=== PATIENT | female | born 2000 | race Caucasian/White ===

== ENCOUNTER → 2023-10-14 | Outpatient (CLI) | payer OTHER, SELFPAY ==
[2023-10-14 11:13] LABS: hCG Titer Quant., Serum 786 mIU/mL (1-3)
== END | disposition home or self-care (01) ==
PROVIDERS: PCP Registered Nurse; Referring Provider Obstetrics & Gynecology; Visit Provider Obstetrics & Gynecology
DX: N91.2 Amenorrhea, unspecified (principal)
CPT/HCPCS: 36415; 84702

== ENCOUNTER → 2023-10-16 | Outpatient (CLI) | payer OTHER, SELFPAY ==
[2023-10-16 11:56] LABS: hCG Titer Quant., Serum 1512 mIU/mL (1-3)
== END | disposition home or self-care (01) ==
LOC: LAB 09:22
PROVIDERS: PCP Registered Nurse; Referring Provider Obstetrics & Gynecology; Visit Provider Obstetrics & Gynecology
DX: N91.2 Amenorrhea, unspecified (principal)
CPT/HCPCS: 36415; 84702

== ENCOUNTER → 2023-11-11 | Outpatient (CLI) | payer OTHER, SELFPAY ==
[2023-11-11 18:26] LABS: hCG Titer Quant., Serum 14249 mIU/mL (1-3)
[2023-11-14 07:08] LABS: Chlamydia By Nucleic Acid AMP Negative (Negative); Gonococcus By Nucleic Acid AMP Negative (Negative)
== END | disposition home or self-care (01) ==
LOC: RAD 16:25 → LAB 16:28
PROVIDERS: PCP Registered Nurse; Referring Provider Advanced Practice Midwife; Visit Provider Advanced Practice Midwife
DX: O09.90 Supervision of high risk pregnancy, unspecified, unspecified trimester (principal); E66.01 Morbid (severe) obesity due to excess calories; Z3A.00 Weeks of gestation of pregnancy not specified
CPT/HCPCS: 36415; 84702; 87086; 87491; 87591

== ENCOUNTER → 2023-11-13 | Outpatient (CLI) | payer OTHER, SELFPAY ==
[2023-11-13 16:19] LABS: hCG Titer Quant., Serum 13173 mIU/mL (1-3)
== END | disposition home or self-care (01) ==
PROVIDERS: PCP Registered Nurse; Referring Provider Advanced Practice Midwife; Visit Provider Advanced Practice Midwife
DX: O20.0 Threatened abortion (principal); Z3A.00 Weeks of gestation of pregnancy not specified
CPT/HCPCS: 36415; 84702

== ENCOUNTER 2023-11-20 05:27 | Day surgery (SDC) | payer OTHER, SELFPAY ==
[2023-11-20] VITALS (10 sets, daily range): BP systolic 118–182; BP diastolic 71–97; PULSE 63–111; RESP 12–18; TEMP 36.2–37.6; O2SAT 97–100
--- NOTE | 2023-11-20 05:37 | EDS_ITS ---
HPI HPI - Female History of Present Illness Chief Complaint: Vag Bld, Preg Informant: patient Narrative Narrative: Patient present secondary to miscarriage. She states that she has been spotting for the past week. Her OB told her she had a missed miscarriage. She was supposed to have a repeat ultrasound later this morning to see how much tissue of any she had passed. She started bleeding about an hour ago and passing large clots with a lot of cramping. [facility] Medical History (Updated 11/20/23 @ 08:[address] Niru Silvestre MD) Anxiety Home Medications ?Medication ?Instructions ?Recorded ?Last Taken ?Type multivitamin no.47-iron fum 27 1 cap PO DAILY 11/04/23 Unknown History mg-folate no.1 1 mg-dha 300 mg capsule (PNV-DHA) Allergy/AdvReac Type Severity Reaction Status Date / Time No Known Allergies Allergy Verified 11/20/23 05:27 Family History Mother Diabetes, Onset Age: 35 Type 2 Father Diabetes, Onset Age: 40 Type 2 Grandfather Heart disease Paternal Grandmother Diabetes Paternal Surgical History [place] teeth extracted History of cholecystectomy Social History adopted: No household members: spouse current occupational status: employed current occupation: [employer] current occupational exposures/hazards: No pets and animals: Yes pets and animals: dog(s) history of recent travel: No sexually active: Yes Smoking Status: Never smoker alcohol intake: never substance use type: does not use well-balanced diet: daily or most days caffeine: No eating out: 1-3 times/week during the past year weight has: increased > 10 lbs what type of physical activity do you participate in: walking and other details: yard work frequency: 1-2 times per week duration: 30-45 minutes/day kenyetta/roman catholic: Adventist seatbelt use: always do you feel safe at home: Yes 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 ED Constitutional Constitutional ED: Denies chills or fever(s) Eyes Eyes: Denies discharge from eye(s) ENT ENT ED: Denies discharge from eye(s), rhinorrhea or sore throat Cardiovascular Cardiovascular: Denies chest pain or palpitations Respiratory/Chest Respiratory/Chest: Denies cough or dyspnea Gastrointestinal Gastrointestinal: Reports abdominal pain; Denies diarrhea, nausea or vomiting Genitourinary Genitourinary ED: Denies dysuria Musculoskeletal Musculoskeletal: Denies back pain or extremity pain Integumentary Denies Abrasions or rash Neurologic Neurologic: Denies headache(s) or weakness Psychiatric Psychiatric: Denies anxiety or depression Allergic/Immunologic Allergic/Immunologic ED: Denies lip swelling or urticaria EXAM Physical Exam Const Vital Signs: 11/20/23 05:27 11/20/23 07:20 Temperature 97.1 F L Temperature Source Oral Pulse Rate 111 H 96 Respiratory Rate 16 18 Blood Pressure 182/84 H 140/96 H Blood Pressure Mean 116 110 Pulse Ox 98 100 Oxygen Delivery Method Room Air Room Air Positive well nourished and well developed General Appearance ED: well developed HEENT Reports moist mucous membranes Eyes EOMs intact bilaterally Chest Wall inspection of chest normal and palpation of chest normal Resp normal respiratory effort and clear to auscultation bilaterally Cardio regular rate and regular rhythm GI GI Narrative: Abdomen soft with lower abdominal tenderness to palpation. No guarding or rebound. Extremity normal to inspection Neuro oriented x3 and no sensory deficits noted Motor Exam: strength 5/5 throughout Psych Mood & Affect: anxious Skin no rashes or lesions noted MDM MDM MDM Narrative Medical decision making narrative: Abdomen initiated. Labwork obtained to evaluate for leukocytosis, anemia, and electrolyte derangement. ABO blood type will be sent. Patient given IV fluids, morphine, and Zofran. I spoke with Dr. Amador early in the patient's course. She would like a formal ultrasound and update her with results when available. History & Record Review Discussion w/independent historian: Patient Additional record(s) reviewed:: Prior outpatient record and Prior labs Lab Data Attestation: I reviewed the patient's lab results. Labs: Laboratory Results - last 24 hr 11/20/23 05:35 WBC 8.6 RBC 5.27 Hgb 14.6 Hct 43.3 MCV 82.2 MCH 27.7 MCHC 33.7 RDW Std Deviation 38.5 RDW Coeff of Diego 12.9 Plt Count 344 MPV 9.4 Immature Gran % (Auto) 0.600 Neut % (Auto) 64.4 Lymph % (Auto) 25.9 [place] % (Auto) 6.0 Eos % (Auto) 2.2 Baso % (Auto) 0.9 Absolute Neuts (auto) 5.5 Absolute Lymphs (auto) 2.22 Nucleated RBC % 0 HCG, Quant 4774 H Blood Type AB POSITIVE Radiography Diagnostic Testing: Clinical Impression(s) from Imaging Studies Obstetrics Ultrasound 11/20/23 05:40 IMPRESSION: Findings suggest impending spontaneous with retained products of conception in the lower uterine segment. Electronically Signed: Shira Larose MD at 7:54 EDT , Treatment and Re-Evaluation Narrative: CBC reveals a white count 8.6 with a hemoglobin of 14.6. Quant is 4774, down from 13,000 on the 18th. Pelvic ultrasound reveals findings suggesting impending spontaneous with retained products of conception in the lower uterine segment. Dr. Robles called after she had seen any ultrasound images. Patient is still having significant pain and is required multiple doses of Dilaudid. Dr. Robles will call the OR and plan to take the patient down for a D&C. Patient has been updated. Discharge Plan Triage Chief Complaint: Vag Bld, Preg ED Provider: Niru Silvestre Dx/Rx/DC Orders Clinical Impression: Incomplete Prescriptions: No Action PNV-DHA 27 mg iron-1 mg -300 mg capsule 1 cap PO DAILY Primary Care Provider: Emmie Singh NP Referrals: Emmie Singh NP, TICKET DISPENSER CHANGER-C [Primary Care Provider] - Print Language: Tamazight [facility]position [facility]
--- NOTE | 2023-11-20 05:40 | US_ITS ---
STUDY: FIRST TRIMESTER OBSTETRICAL ULTRASOUND REASON FOR EXAM: Female, 23 years old patient with miscarriage and abnormal vaginal bleeding. LMP: Unknown. TECHNIQUE: Transvaginal TECHNICAL QUALITY: Adequate. PRIOR ULTRASOUND: None. FINDINGS: There is a abnormal appearing gestational sac in the lower uterine segment. There is no demonstrated yolk sac. The placenta is non-visualized. There is no demonstrated embryo ( pole). The estimated gestation age (EGA) by LUIS is 10 weeks, 5 days. The estimated date of delivery (LUIS) is June 12, 2024. The uterus measures 9.9 x 4.7 x 5.9 cm. There is no demonstrated uterine fibroid. The cervix is closed. The right ovary measures 1.5 x 2.7 x 1.8 cm. There is no right ovarian cyst. There is no visualized right adnexal mass or complex lesion. The left ovary measures 2.4 x 1.6 x 2.9 cm.. There is no left ovarian cyst. There is no visualized left adnexal mass or complex lesion. There is no fluid in the cul de sac. US/Transvaginal w/Preg US IMPRESSION: Findings suggest impending spontaneous with retained products of conception in the lower uterine segment. Electronically Signed: Shira Larose MD at 7:54 EDT ,
[2023-11-20] MEDS: 0.9% Normal Saline (1000mL) 1,000 ML 150 ML IV (05:45)
[2023-11-20] MEDS: Morphine 4 MG/ML Syringe IV (05:46)
[2023-11-20] MEDS: Ondansetron 4 MG/2 ML Vial IV (05:46)
[2023-11-20] MEDS: 0.9% Normal Saline (500mL Bag) 500 ML 1000 ML IV (05:49)
[2023-11-20 05:50] LABS: Absolute Lymphocyte Count 2.22 X10^3/uL (0.83-4.51); Absolute Neutrophil Count 5.5 X10^3/uL (2.0-7.7); Basophil# 0.08 X10^3/uL; Basophil% 0.9 % (0-1); Eosinophil# 0.19 X10^3/uL; Eosinophils% 2.2 % (0-5); Hematocrit 43.3 % (37-47); Hemoglobin 14.6 g/dL (12.0-15.0); Lymphocyte # 2.22 X10^3/ul (0.83-4.51); Lymphocyte % 25.9 % (19-41); Mean Corp Hgb Conc 33.7 g/dL (32-36); Mean Corpuscular Hgb 27.7 pg (27.0-32.0); Mean Corpuscular Volume 82.2 fL (81-99); Mean Platelet Vol. 9.4 fl (6.2-12.0); Monocyte# 0.51 X10^3/uL; NRBC Flagged by Analyzer 0 % (0-5); Neutrophil # 5.52 X10^3/uL (2.7-7.7); Neutrophil % 64.4 % (47-70); Platelet Count 344 K/mm3 (150-450); RBC Distribution Width CV 12.9 % (11.6-14.6); RBC Distribution Width SD 38.5 fl (35.1-43.9); Red Blood Count 5.27 M/mm3 (4.2-5.4); White Blood Count 8.6 K/mm3 (4.4-11.0)
[2023-11-20 06:29] LABS: hCG Titer Quant., Serum 4774 mIU/mL (1-3)
[2023-11-20] MEDS: HYDROmorphone 0.5 MG/0.5 ML SYRINGE IV (07:19)
[2023-11-20] MEDS: HYDROmorphone 1 MG/ML Syringe IV (07:50)
--- NOTE | 2023-11-20 08:00 | POC_PTH ---
PATIENT: CHRISSIE COLBY [place] [facility] [place][id number] AGE/SX: 23/ ROOM: RE11/20/[address]: Dr. Niru Gibson DO : 2000 BED: DIS: 11/20/2023 SPEC #: [id number] RECD: 11/20/23 12:19 STATUS: JOSHUA BOWLES #: [id number] ANGELICA: 11/20/23 08:[address]: Niru Gibson DEPT: SURGICAL PATHOLOGY RECD BY: Sharda Graf ENTERED: 11/20/23 13:30 SP TYPE: PROD CONC OTHR DR: Emmie Singh, DANYEL Tissues: Product of conception, NOS Procedures: Surgery Specimen Level IV HEADER OPERATION: D&C, suction PRE-OP DIAGNOSIS: Incomplete , bleeding in early TISSUE SUBMITTED: Products of conception MICROSCOPIC DIAGNOSIS Endometrium, curettage: Chorionic villi, decidualized stroma and trophoblastic cells (products of conception). AM: 11/21/2023 MICROSCOPIC DESCRIPTION Slides are reviewed. GROSS DESCRIPTION Received in fixative is one container labeled with the patient's name and designated Products of conception. The specimen consists of multiple fragments of hemorrhagic soft tissue measuring in aggregate 5.5 x 5.5 x 1.5cm. tissue is not identified. Film Drying Machine Operator tissue is submitted in three cassettes. CHACORTA/ 11/20/2023 TC:5 CPT:38070
--- NOTE | 2023-11-20 08:27 | HP.PCM.OB_ITS ---
HPI - General HPI Narrative CHRISSIE COLBY, is a 23 y/o @ approximately 7 weeks gestation who presents to [facility] ER with heavy bleeding and severe pain. SHe was given cytotec to help facilitate an incomplete . Ultrasound shows that the is not in the lower uterine segment. Her bleeding is reported as brisk but her hg is stable. She is requesting dilaudid and has been given that in the ER. She would like to proceed with a suction dilation and curettage. Maternal Data Information LUIS Calculator Estimated Delivery Date Method Current WG Current Estimate 06/12/24 LMP (Certain) 10w 5d [facility] Medical History Anxiety Home Medications ?Medication ?Instructions ?Recorded ?Last Taken ?Type multivitamin no.47-iron fum 27 1 cap PO DAILY 11/04/23 Unknown History mg-folate no.1 1 mg-dha 300 mg capsule (PNV-DHA) Allergy/AdvReac Type Severity Reaction Status Date / Time No Known Allergies Allergy Verified 11/20/23 05:27 Family History Mother Diabetes, Onset Age: 35 Type 2 Father Diabetes, Onset Age: 40 Type 2 Grandfather Heart disease Paternal Grandmother Diabetes Paternal Surgical History [place] teeth extracted History of cholecystectomy Social History adopted: No household members: spouse current occupational status: employed current occupation: [employer] current occupational exposures/hazards: No pets and animals: Yes pets and animals: dog(s) history of recent travel: No sexually active: Yes Smoking Status: Never smoker alcohol intake: never substance use type: does not use well-balanced diet: daily or most days caffeine: No eating out: 1-3 times/week during the past year weight has: increased > 10 lbs what type of physical activity do you participate in: walking and other details: yard work frequency: 1-2 times per week duration: 30-45 minutes/day kenyetta/episcopal: Mandaen seatbelt use: always do you feel safe at home: Yes 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 Elective abortions Hx Para 0 Spontaneous abortions Hx # Term Pregnancies Ectopic pregnancies Hx # Pregnancies Multiple births # of living children Visit Details Expected Delivery Route/Plan Labor Preferences- CB/BF classes: [] labor support person: [] labor intervention preferences: [] pain management options preferred: [] cut cord/dad catch: [] : [] PP control planned: [] discussed possible routes of delivery and associated risks: [] special requests: [] Plans Covid status: [] Flu vaccine: [] Tdap vaccine: [] Rhogam: [] LARC form signed: [] Problem list reviewed and updated with the most current plan of care details and appropriate orders placed. Relevant counseling for the gestational age provided. Continue routine care and follow up unless otherwise noted in visit notes/problem list details OB Flowsheet Initial Weight: 277 lb Date -?-?-?-?-?-?-?-?-?-?-?-?- EGA Weight BP Urine Prot -?-?-?-?-?-?--?-?-?-?-?-?- Glucose FHR FuHt Pres Dilation -?-?-?-?-?-?-?-?-?-?-?-?- Effaced St Visit Note 11/11/23 -?-?-?-?-?-?-?-?-?-?-?-?- 9w 3d 277 lb (+0 oz) 147/88 -?-?-?-?-?-?-?-?-?-?-?-?- -?-?-?-?-?-?-?-?-?-?-?-?- KW-CRL 6mm today . FHT not visualized. JV scanned and agrees with assessment. Plan HCGs and repeat US in 1 week. wants NIPT and carrier if viable ROS Constitutional Constitutional: Denies change in weight, fatigue, fever(s), headache(s), poor appetite or weakness Eyes Eyes: Denies blurry vision, change in vision, seeing flashes or spots in vision ENT HEENT: Denies dizziness, headache(s), loss taste/smell or sore throat Cardiovascular Cardiovascular: Denies chest pain, dizziness, dyspnea, irregular heart rhythm, leg edema, palpitations, rapid heart rate or vomiting Respiratory/Chest Respiratory/Chest: Denies chest tightness, cough, dyspnea or breast pain Gastrointestinal Gastrointestinal: Denies abdominal pain, anorexia, constipation, diarrhea, hemorrhoids, vomiting or weight changes Genitourinary Genitourinary: Denies dysuria, flank pain, genital lesions, genital pain, urinary frequency or urinary urgency Musculoskeletal Musculoskeletal: Denies back pain, difficulty walking, joint pain, limited range of motion, muscle cramps or numbness Integumentary Integumentary: Denies lesions or unusual bruising Neurologic Neurologic: Denies abnormal movements, abnormal speech, dizziness, numbness, seizure-like activity or syncope Psychiatric Psychiatric: Denies anxiety, behavioral changes, change in appetite, change in libido, cognitive impairment, confusion, depression, difficulty concentrating, hallucinations or suicidal thoughts Endocrine Endocrinology: Denies excessive sweating, polydipsia or polyuria Hematologic/Lymphatic Hematologic/Lymphatic: Denies easy bleeding, easy bruising or lymphadenopathy Allergic/Immunologic Allergic/Immunologic: Denies itchy eyes, lip swelling, seasonal rhinorrhea, rhinitis, throat swelling, tongue swelling, eczemia, wheezing or asthma Vital Signs Vital Signs Vital Signs: 11/20/23 05:27 11/20/23 07:20 11/20/23 08:17 Temperature 97.1 F L 98.0 F Temperature Source Oral Temporal Pulse Rate 111 H 96 63 Respiratory Rate 16 18 12 Blood Pressure 182/84 H 140/96 H 118/71 Blood Pressure Mean 116 110 86 Blood Pressure Source Monitor Blood Pressure Position Semi-Fowlers Blood Pressure Location Left Arm Pulse Ox 98 100 98 Oxygen Delivery Method Room Air Room Air Nasal Cannula Oxygen Flow Rate (L/min) 2 Physical Exam Const alert, oriented x3, no apparent distress and healthy appearing General Appearance: cooperative; Negative for anxious HEENT normocephalic Face and Sinus: normal facial exam Eyes EOMs intact bilaterally and no scleral icterus General Eye: normal appearance of both eyes Neck full ROM and supple Lymph Lymphatic: no lymphadenopathy noted Chest Chest: abnormal inspection of the chest Resp normal respiratory effort Effort and Inspection: able to speak in complete sentences Cardio regular rate GI soft to palpation Palpation: soft Back/Spine no CVA tenderness Extremity normal to inspection, full ROM and no clubbing, cyanosis or edema General Extremity: Negative for calf tenderness or edema Skin Lesions: no lesions Rashes: no rashes Psych mental status grossly normal Labs Labs Labs: Blood Type AB POSITIVE Hct 43.3 % (37-47) Hgb 14.6 g/dL (12.0-15.0) Obstetrics Ultrasound Chlamydia DNA (GSU) Negative (Negative) N.gonorrhoeae DNA (GUS) Negative (Negative) Assessment & Plan (1) Incomplete : (2) Bleeding in early : PLAN: Plan After discussing the patient's diagnosis and treatment plan options, patient wishes to proceed with surgical management. I have discussed with the patient the risks, benefits, and alternatives of the procedure which include but are not limited to risks of anesthesia, bleeding, infection, possible damage to bowel, bladder, or surrounding vasculature which could lead to additional surgery to evaluate any complications. Patient agrees to procedure and wishes to proceed. plan for urgent Suction dilation and curettage
--- NOTE | 2023-11-20 08:28 | PRE.ANES_ITS ---
ASA Classification* ASA Classification ASA Classification: 3 and E (unscheduled, emergent due to active bleeding) Assessment & Plan Anesthesia* Anesthesia Assessment Anesthesia Assessment: Discussed sedation and/or anesthesia options, risks, benefits, and alternatives with patient/parents/legal guardian/POA. Questions invited. The patient/parents/legal guardian/POA seems to understand and agrees to proceed with anesthesia plan. Reviewed the physical assessment, medical history, allergy history and patient home medications list prior to surgery/procedure/anesthetic and documented any changes. Performed airway and anesthesia risk assessments. Anesthesia Type Anesthesia Type: MAC Anesthesia Focused Assessment* Temperature: 98.0 F Pulse Rate: 63 Blood Pressure: 118/71 Respiratory Rate: 12 Pulse Ox: 98 Airway Assessment Mouth opens: >3 cm Mallampati Score: II Focused Labs Anesthesia Preop lab: CBC WBC 8.6 K/mm3 (4.4-11.0) 11/20/23 05:35 RBC 5.27 M/mm3 (4.2-5.4) 11/20/23 05:35 Hgb 14.6 g/dL (12.0-15.0) 11/20/23 05:35 Hct 43.3 % (37-47) 11/20/23 05:35 Plt Count 344 K/mm3 (150-450) 11/20/23 05:35 CHEMISTRY COAG HCG, Quant 4774 mIU/mL (1-3) H 11/20/23 05:35 Pre-Assessment Diagnosis/Proposed Procedure Planned Operative Procedure(s): D&C Anesthesia History Anesthesia History - combination machine tender: Anesthesia History - combination machine tender Hx Hospitalization Any Problems With Anesthesia No 11/20/23 08:17 Cholinesterase deficiency You/Your Family Experience No 11/20/23 08:17 fever (hyperthermia) with Relationship Recent Exposure to Contagious No 11/20/23 08:17 Disease Does patient have nerve No 11/20/23 08:17 stimulator Patient instructed to have device shut off --Does patient have Pacemaker No 11/20/23 08:17 or ICD? When Was Last Pacemaker Check QUESTION #4 FULL TEXT: You/Your Family Experience fever (hyperthermia) with Anesthesia Last Oral Intake Last Oral intake: Last Oral Intake NPO since Meds taken in AM with sips of water? Meds patient instructed to take am of surgery PONV PONV - combination machine tender: PONV - combination machine tender Female HX of Motion Sickness HX of N/V After Surgery Non-Smoker Duration of Surgery greater than 60 minutes Number of Risk Factors PONV Score Height & Weight Height & Weight: Anesthesia: Height & Weight Height 5 ft 3 in 11/20/23 08:17 Respiratory Assessment Respiratory Assessment - combination machine tender: Respiratory Tract Infection Hx - combination machine tender Hx Respiratory Tract Infection No 11/20/23 08:17 STOP Sleep Apnea STOP Sleep Apnea - combination machine tender: STOP Sleep Apnea - combination machine tender Hx Hypertension No 11/20/23 08:17 Hx Sleep Apnea No 11/20/23 08:17 CPAP BIPAP Do you snore loudly (louder No 11/20/23 08:17 than talking or can be heard Do you often feel tired/ No 11/20/23 08:17 fatigued/ sleepy during daytime? Has anyone observed you stop No 11/20/23 08:17 breathing during sleep? STOP Results Negative 11/20/23 08:17 QUESTION #5 FULL TEXT : Do you snore loudly (louder than talking or can be heard through closed doors)? 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 Specify any problems Hx of Preganancy in last 3 Months Nurse Filling Out Transfusion & Questions: Date: Time: Patient unable to answer at this time (ie. confused, unrespo /Reproduction History /Reproductive History - combination machine tender: /Reproductive Hx- combination machine tender Hx Now Yes 11/20/23 08:17 Gestational Age (in weeks): EDC: Hx 1 11/20/23 05:27 Hx Para Hx Section SAB Yes 11/20/23 05:27 Active Medications Active Medications: Current Medications Generic Name Dose Route Start Last Admin Trade Name Freq PRN Reason Stop Dose Admin Sodium Chloride 1,000 mls @ 150 mls/hr 11/20/23 05:35 11/20/23 05:45 IV 150 mls/hr .[id number] SMITH Administration PFSH Medical History Anxiety Home Medications ?Medication ?Instructions ?Recorded ?Last Taken ?Type multivitamin no.47-iron fum 27 1 cap PO DAILY 11/04/23 Unknown History mg-folate no.1 1 mg-dha 300 mg capsule (PNV-DHA) Allergy/AdvReac Type Severity Reaction Status Date / Time No Known Allergies Allergy Verified 11/20/23 05:27 Family History Mother Diabetes, Onset Age: 35 Type 2 Father Diabetes, Onset Age: 40 Type 2 Grandfather Heart disease Paternal Grandmother Diabetes Paternal Surgical History [place] teeth extracted History of cholecystectomy Social History adopted: No household members: spouse current occupational status: employed current occupation: [employer] current occupational exposures/hazards: No pets and animals: Yes pets and animals: dog(s) history of recent travel: No sexually active: Yes Smoking Status: Never smoker alcohol intake: never substance use type: does not use well-balanced diet: daily or most days caffeine: No eating out: 1-3 times/week during the past year weight has: increased > 10 lbs what type of physical activity do you participate in: walking and other details: yard work frequency: 1-2 times per week duration: 30-45 minutes/day kenyetta/spiritism: Mandaeism seatbelt use: always do you feel safe at home: Yes 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
--- NOTE | 2023-11-20 08:33 | DCINST_ITS ---
Discharge Instructions Diet Discharge Diet: No restrictions Activity Discharge Activity: Return to Normal Activity, May Shower and May Take a Tub Bath (after 1 week) May resume sexual activity in: 1-2 weeks Weight Bearing Status: Weight bearing as tolerated Lifting Restrictions: none Dressing / Incision Call your doctor if you observe: Fever of 101 or Higher, Using more than 1 pad per hour, Shortness of breath and Uncontrolled pain Follow Up Care Please Follow Up With: Niru Gibson DO When: Call [phone] to schedule appointment. Test Results: Test results from this visit will be discussed in further detail at your follow- up appointment, if applicable. Discharge Plan Admission Attending Provider: Niru Gibson Primary Care Provider: Emmie Singh NP Instructions Print Language: Mongolian Discharge Orders/Prescriptions Prescriptions: No Action PNV-DHA 27 mg iron-1 mg -300 mg capsule 1 cap PO DAILY Referrals / Follow Up: Emmie Singh NP, IDENTITY MANAGEMENT DEVELOPER-C [Primary Care Provider] - Disposition Disposition (needs filled in before D/C Order can be placed): Home, Self Care
[2023-11-20] MEDS: Lidocaine 1% (20 ml mdv) 20 ML Vial (09:09)
--- NOTE | 2023-11-20 09:11 | OP.PCM_ITS ---
Problems Associated Problem List Diagnoses (1) Incomplete : Report of Operation Date of Procedure: 11/20/23 Pre-Operative Diagnosis: incomplete , 7 weeks gestation Post-Operative Diagnosis: incomplete , 7 weeks gestation Surgery/Procedure Performed:: suction dilation and curettage Description of Surgical Findings:: POC mostly in the cervix Surgeon: Niru Gibson business continuity management director: None Type of Anesthesia: MAC and Topical Anesth Specimen's removed: products of conception Drains: none Estimated Blood Loss (mL): 50 Description of Procedure: Patient was taken to the operating room and placed under MAC local anesthesia. She was prepped and draped in the normal sterile fashion the dorsal lithotomy position. Bladder was drained of clear urine and anterior lip of the cervix was grasped and the uterus sounded to []. Cervix was progressively dilated to allow passage of a size 7 suction curette. Progressive passes were made removing the retained products of conception without complication. Sharp curettage confirmed complete removal of the retained products. All instruments were removed from the vagina and excellent hemostasis was noted and the patient was taken to recovery in stable condition. Procedure Start Time: 09:02 Procedure Stop Time: 09:11 Complications none Admit VTE Documentation VTE Present on Admission: Yes VTE Mechan Device Prophylaxis: SCD's Multi Select Codes Urinary/Genital Urinary/Genital CPT Codes: 34035 Surg Trtmt missed Ab 1TM
--- NOTE | 2023-11-20 09:39 | PCM.POST.ANE ---
Anesthesia: Postop Eval I Current Vital Signs Temperature: 99.1 F Pulse Rate: 88 Blood Pressure: 142/95 Respiratory Rate: 18 Pulse Ox: 98 Oxygen Delivery Method: Room Air Assessment Airway patent: Yes Spontaneous unlabored respirations: Yes Mental status: Awake and Calm nausea: No Vomiting: No Anesthesia Complication: No Fluid Hydration Crystalloid volume administer (ml): 1,200 Total IV fluid infused: 1,200 Progress Note Anesthesia document: Postop Eval 1 completed: Yes
--- NOTE | 2023-11-20 09:46 | PRE.ANES_ITS ---
ASA Classification* ASA Classification ASA Classification: 2 Assessment & Plan Anesthesia* Anesthesia Assessment Anesthesia Assessment: Discussed sedation and/or anesthesia options, risks, benefits, and alternatives with patient/parents/legal guardian/POA. Questions invited. The patient/parents/legal guardian/POA seems to understand and agrees to proceed with anesthesia plan. Reviewed the physical assessment, medical history, allergy history and patient home medications list prior to surgery/procedure/anesthetic and documented any changes. Performed airway and anesthesia risk assessments. Anesthesia Type Anesthesia Type: MAC (GA bkup) Anesthesia Focused Assessment* Temperature: 99.1 F Pulse Rate: 88 Blood Pressure: 142/95 Respiratory Rate: 18 Pulse Ox: 98 Oxygen Flow Rate (L/min): 2 Airway Assessment Mouth opens: >3 cm Mallampati Score: II Focused Labs Anesthesia Preop lab: CBC WBC 8.6 K/mm3 (4.4-11.0) 11/20/23 05:35 11/20/23 RBC 5.27 M/mm3 (4.2-5.4) 11/20/23 05:35 11/20/23 Hgb 14.6 g/dL (12.0-15.0) 11/20/23 05:35 11/20/23 Hct 43.3 % (37-47) 11/20/23 05:35 11/20/23 Plt Count 344 K/mm3 (150-450) 11/20/23 05:35 11/20/23 CHEMISTRY COAG HCG, Quant 15041 mIU/mL (1-3) H 03/15/24 09:01 03/15/24 Pre-Assessment Diagnosis/Proposed Procedure Planned Operative Procedure(s): D&C Anesthesia History Anesthesia History - network pricing consultant: Anesthesia History - network pricing consultant Hx Hospitalization Any Problems With Anesthesia No 11/20/23 08:17 Cholinesterase deficiency You/Your Family Experience No 11/20/23 08:17 fever (hyperthermia) with Relationship Recent Exposure to Contagious No 11/20/23 08:17 Disease Does patient have nerve No 11/20/23 08:17 stimulator Patient instructed to have device shut off --Does patient have Pacemaker No 11/20/23 08:17 or ICD? When Was Last Pacemaker Check QUESTION #4 FULL TEXT: You/Your Family Experience fever (hyperthermia) with Anesthesia Last Oral Intake Last Oral intake: Last Oral Intake NPO since Meds taken in AM with sips of water? Meds patient instructed to take am of surgery PONV PONV - network pricing consultant: PONV - network pricing consultant Female HX of Motion Sickness HX of N/V After Surgery Non-Smoker Duration of Surgery greater than 60 minutes Number of Risk Factors PONV Score Height & Weight Height & Weight: Anesthesia: Height & Weight Height 5 ft 3 in 11/20/23 08:17 Respiratory Assessment Respiratory Assessment - network pricing consultant: Respiratory Tract Infection Hx - network pricing consultant Hx Respiratory Tract Infection No 11/20/23 08:17 STOP Sleep Apnea STOP Sleep Apnea - network pricing consultant: STOP Sleep Apnea - network pricing consultant Hx Hypertension No 11/20/23 08:17 Hx Sleep Apnea No 11/20/23 08:17 CPAP BIPAP Do you snore loudly (louder No 11/20/23 08:17 than talking or can be heard Do you often feel tired/ No 11/20/23 08:17 fatigued/ sleepy during daytime? Has anyone observed you stop No 11/20/23 08:17 breathing during sleep? STOP Results Negative 11/20/23 09:20 QUESTION #5 FULL TEXT : Do you snore loudly (louder than talking or can be heard through closed doors)? Tobacco Use History Tobacco Use History - network pricing consultant: Tobacco Use History - network pricing consultant Tobacco Use Smoking Status Never smoker 11/20/23 05:27 Hx Tobacco Use Years Smoking Packs Smoked per Day Smoking Cessation Date was within the last 15 years Hx Smoking Cessation Date Hx Smoking Cessation Counseling Hematologic Medial History Hematologic Hx - network pricing consultant: Hematologic Medical Hx - web development manager Hx of Blood Transfusion Hx of Transfusion in last 3 Months Date of Last Transfusion (if within last 3 months) Ever experience any problems with transfusion(s)? Specify any problems Hx of Preganancy in last 3 Months Nurse Filling Out Transfusion & Questions: Date: Time: Patient unable to answer at this time (ie. confused, unrespo /Reproduction History /Reproductive History - network pricing consultant: /Reproductive Hx- network pricing consultant Hx Now Yes 11/20/23 08:17 Gestational Age (in weeks): EDC: Hx 1 11/20/23 05:27 Hx Para Hx Section SAB Yes 11/20/23 05:27 Active Medications Active Medications: Current Medications Generic Name Dose Route Start Last Admin Trade Name Freq PRN Reason Stop Dose Admin Hydrocodone Bitart/Acetaminophen 1 - 2 tablet 11/20/23 08:57 Hydrocodone Bitartrate/Apap 5/325 Tablet PO Q6H PRN PRN Pain Score 6-10 Sodium Chloride 1,000 mls @ 150 mls/hr 11/20/23 05:35 11/20/23 05:45 IV 150 mls/hr .[id number] SMITH Administration Ondansetron HCl 4 mg 11/20/23 08:57 Ondansetron 4 Mg/2 Ml Vial IM X1 PRN NAUSEA PFSH Medical History Incomplete Anxiety Home Medications ?Medication ?Instructions ?Recorded ?Last Taken ?Type multivitamin no.47-iron fum 27 1 cap PO DAILY 11/04/23 Unknown History mg-folate no.1 1 mg-dha 300 mg capsule (PNV-DHA) aspirin 81 mg tablet,delayed 81 mg PO DAILY 03/15/24 U nknown History release (Adult Aspirin Regimen) Allergy/AdvReac Type Severity Reaction Status Date / Time No Known Allergies Allergy Verified 03/15/24 08:46 Family History Mother Diabetes, Onset Age: 35 Type 2 Father Diabetes, Onset Age: 40 Type 2 Grandfather Heart disease Paternal Grandmother Diabetes Paternal Surgical History Status post dilation and curettage [place] teeth extracted History of cholecystectomy Social History adopted: No household members: spouse current occupational status: employed current occupation: [employer] current occupational exposures/hazards: No pets and animals: Yes pets and animals: dog(s) history of recent travel: No sexually active: Yes Smoking Status: Never smoker alcohol intake: never substance use type: does not use well-balanced diet: daily or most days caffeine: No eating out: 1-3 times/week during the past year weight has: increased > 10 lbs what type of physical activity do you participate in: walking and other details: yard work frequency: 1-2 times per week duration: 30-45 minutes/day kenyetta/faith: Congregation seatbelt use: always do you feel safe at home: Yes 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
--- NOTE | 2023-11-20 09:46 | PCM.POSTANE2 ---
Anesthesia Postop Eval I Sum Postop Eval Completion status Anesthesia document: Postop Eval 1 completed: Yes Anesthesia Postop Eval I Summary Anesthesia Postop Eval I Summary: Anesthesia Postop Eval I: Assessment Summary Airway patent Yes 11/20/23 09:40 [email or web address] Spontaneous unlabored Yes 11/20/23 09:40 [email or web address] respirations Mental status Awake,Calm 11/20/23 09:40 [email or web address] nausea No 11/20/23 09:40 [email or web address] Vomiting No 11/20/23 09:40 [email or web address] Anesthesia Postop Eval I: Fluid Summary Crystalloid volume administer 1,200 11/20/23 09:40 [email or web address] (ml) Colloids volume administered ( ml) Blood Product volume administered (ml) Total IV fluid infused 1,200 11/20/23 09:40 [email or web address] Anesthesia Postop Eval I: Summary Notes Anesthesia Complication No 11/20/23 09:40 [email or web address] Anesthesia Complication Comment: Post-operative progress note Anesthesia: Postop Eval II Evaluation Mental status: Awake Pain Level: 0 nausea: No Vomiting: No Complications Anesthesia Complication: No
== END 2023-11-20 10:35 | disposition home or self-care (01) ==
LOC: ED 08:01 → SDC 08:07 → ACINP 08:08
PROVIDERS: Emergency Provider Emergency Medicine; PCP Registered Nurse; Visit Provider Obstetrics & Gynecology
PROC: (CPT 59812; principal; 2023-11-20 07:45)
DX: O03.4 Incomplete spontaneous abortion without complication (principal)
CPT/HCPCS: 59812; 01965; 76817; 84702; 85025; 86900; 86901; 88305; 99284; J7030; A4216; J2405

== ENCOUNTER → 2023-12-30 | Outpatient (CLI) | payer OTHER, SELFPAY ==
[2023-12-30 16:28] LABS: hCG Titer Quant., Serum 16 mIU/mL (1-3)
== END | disposition home or self-care (01) ==
PROVIDERS: PCP Registered Nurse; Referring Provider Obstetrics & Gynecology; Visit Provider Obstetrics & Gynecology
DX: Z34.90 Encounter for supervision of normal pregnancy, unspecified, unspecified trimester (principal); Z87.59 Personal history of other complications of pregnancy, childbirth and the puerperium
CPT/HCPCS: 36415; 84702

== ENCOUNTER → 2024-01-01 | Outpatient (CLI) | payer OTHER, SELFPAY ==
[2024-01-01 14:54] LABS: hCG Titer Quant., Serum 7 mIU/mL (1-3)
== END | disposition home or self-care (01) ==
LOC: LAB 13:35
PROVIDERS: PCP Registered Nurse; Referring Provider Obstetrics & Gynecology; Visit Provider Obstetrics & Gynecology
DX: Z34.90 Encounter for supervision of normal pregnancy, unspecified, unspecified trimester (principal); Z87.59 Personal history of other complications of pregnancy, childbirth and the puerperium
CPT/HCPCS: 36415; 84702

== ENCOUNTER → 2024-01-06 | Outpatient (CLI) | payer OTHER, SELFPAY ==
[2024-01-06 14:12] LABS: hCG Titer Quant., Serum < 1 mIU/mL (1-3)
== END | disposition home or self-care (01) ==
LOC: LAB 12:37
PROVIDERS: PCP Registered Nurse; Referring Provider Obstetrics & Gynecology; Visit Provider Obstetrics & Gynecology
DX: O03.9 Complete or unspecified spontaneous abortion without complication (principal)
CPT/HCPCS: 36415; 84702

== ENCOUNTER 2024-03-15 08:45 | Emergency (ER) | payer OTHER, SELFPAY ==
[2024-03-15 08:46] VITALS: BP 174/96; PULSE 106; RESP 18; TEMP 35.9; O2SAT 99; BMI 50.5
--- NOTE | 2024-03-15 08:50 | US_ITS ---
STUDY: FIRST TRIMESTER OBSTETRICAL ULTRASOUND REASON FOR EXAM: Female, 23 years old Vaginal bleeding, hCG 4220 on March 11 LMP: 02/02/2024 TECHNIQUE: Transvaginal TECHNICAL QUALITY: Adequate. PRIOR ULTRASOUND: None. FINDINGS: There is visualization of a single gestational sac in a normal intrauterine position. The mean sac diameter (MSD) measures 1.49 cm, indicating an estimated gestational age (EGA) of 6 weeks, 2 days. The gestational sac shape is within normal limits. There is a visualized yolk sac. The yolk sac measures 0.29 cm. The placenta is non-visualized. There is visualization of a live embryo. The crown-rump length (CRL) measures 0.34 cm, indicating an estimated gestational age (EGA) of 6 weeks, 1 days. There is demonstrated cardiac activity with a heart rate of 103 bpm. The estimated gestation age (EGA) by LMP is 6 weeks, 0 days. The estimated date of delivery (LUIS) by LMP is 11/08/2024. The estimated gestation age (EGA) by US is 6 weeks, 2 days. The estimated date of delivery (LUIS) by US is 11/06/2024. The uterus measures 8.6 x 5.4 x 4.6 cm. There is no demonstrated uterine fibroid. The cervix is closed. The right ovary measures 3.7 x 2.7 x 1.8 cm. There is no right ovarian cyst. There is no visualized right adnexal mass or complex lesion. The left ovary measures 3.8 x 3.0 x 1.7 cm. There is no left ovarian cyst. There is no visualized left adnexal mass or complex lesion. There is no fluid in the cul de sac. US/Transvaginal w/Preg US IMPRESSION: Single live intrauterine at 6 weeks, 2 days by current ultrasound LUIS of 11/06/2024, and heart rate at 103 bpm. No suspicious sonographic findings Electronically Signed: Rikki Brown MD at 10:56 EST ,
--- NOTE | 2024-03-15 08:56 | ED.VIS.FEGU ---
HPI HPI - Female History of Present Illness Chief Complaint: Vag Bld, Preg Detail of Chief Complaint: Vaginal bleeding first noted at 0800 Informant: patient Pain Pain: Negative for Pelvic Pain, Vulvar Pain or Vaginal Pain Bleeding Issue: Positive for Vaginal bleeding; Negative for Passing clots or Passing tissue Onset: Today (0800) Context: Sudden Onset Timing: Continuous Current Severity: Spotting Maximum Severity: Spotting Associated Symptoms Associated Symptoms: Positive for Missed Period; Negative for Dysuria, Frequency, Urgency or Hematuria Last known menstrual period: Approximately 6.5 weeks, hCG 4000 turn 20 on March 11 Test: Positive Sexually: Positive for Active Control: No control P: 0 Ab: 2 Narrative Narrative: Patient is a 23-year-old AB 2 female who has had multiple tests that are positive. Most recent hCG obtained at the [facility] was 4220 on March 11. Her developer prover mechanical is Dr. Adkins. Patient has a be positive blood. This was confirmed by looking at old records. Patient denies orthostatic symptoms. Patient denies pelvic pain or left shoulder pain. Patient denies history of ectopic . Patient has not had an ultrasound with this . She has no other complaints other than the vaginal bleeding that was first noted at 0800 this morning. Patient states she had a chemical . The other aborted at 11 weeks and patient reports stopped growing at 6 weeks. Prior similar symptoms: Yes Recent Illness/Hospitalization: No PFSH PFSH Medical History Incomplete Anxiety Home Medications ?Medication ?Instructions ?Recorded ?Last Taken ?Type multivitamin no.47-iron fum 27 1 cap PO DAILY 11/04/23 Unknown History mg-folate no.1 1 mg-dha 300 mg capsule (PNV-DHA) aspirin 81 mg tablet,delayed 81 mg PO DAILY 03/15/24 Unknown History release (Adult Aspirin Regimen) Allergy/AdvReac Type Severity Reaction Status Date / Time No Known Allergies Allergy Verified 03/15/24 08:46 Family History Mother Diabetes, Onset Age: 35 Type 2 Father Diabetes, Onset Age: 40 Type 2 Grandfather Heart disease Paternal Grandmother Diabetes Paternal Surgical History Status post dilation and curettage [place] teeth extracted History of cholecystectomy Social History adopted: No household members: spouse current occupational status: employed current occupation: [employer] current occupational exposures/hazards: No pets and animals: Yes pets and animals: dog(s) history of recent travel: No sexually active: Yes Smoking Status: Never smoker alcohol intake: never substance use type: does not use well-balanced diet: daily or most days caffeine: No eating out: 1-3 times/week during the past year weight has: increased > 10 lbs what type of physical activity do you participate in: walking and other details: yard work frequency: 1-2 times per week duration: 30-45 minutes/day kenyetta/samaritan: Scientologist seatbelt use: always do you feel safe at home: Yes 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 ; Denies chest pain or palpitations Respiratory/Chest Respiratory/Chest: Denies dyspnea or dyspnea on exertion Gastrointestinal Gastrointestinal: Denies abdominal pain, nausea or vomiting Genitourinary Genitourinary ED: Denies dysuria, hematuria or urinary frequency Musculoskeletal Musculoskeletal: Reports other Details: Patient denies low back pain. Patient denies left shoulder/trapezius pain. Hematologic/Lymphatic Hematologic/Lymphatic: Denies easy bleeding or easy bruising EXAM Physical Exam Const Vital Signs: 03/15/24 08:46 03/15/24 10:46 Temperature 96.7 F L Temperature Source Temporal Pulse Rate 106 H 89 Respiratory Rate 18 Blood Pressure 174/96 H 142/82 H Blood Pressure Mean 122 102 Pulse Ox 99 Oxygen Delivery Method Room Air Positive well nourished and well developed Constitutional Narrative: BMI is 50.5. Blood pressure is elevated. Patient is tachycardic. This may be due to anxiety. She is presently taking a baby aspirin and progesterone vaginal suppositories. General Appearance ED: well developed; Negative for pallor HEENT Reports moist mucous membranes Eyes PERRL and EOMs intact bilaterally Neck no JVD Resp normal respiratory effort and clear to auscultation bilaterally Cardio regular rate, regular rhythm, S1 normal heart sound, no murmurs and no JVD GI normal to inspection, nondistended, normoactive bowel sounds, soft to palpation, non-tender, non-distended and no masses Extremity normal to inspection and full ROM Neuro oriented x3 and CN's II-XII intact bilaterally Sensorium / Orientation: alert Psych mental status grossly normal Skin no rashes or lesions noted and no wounds General Skin Exam: Negative for jaundice or pallor MDM MDM MDM Narrative Medical decision making narrative: With history of 2 prior miscarriages and a hCG of 4220 and no ultrasound during this ultrasound was obtained to assess viability of . Doubt this is ectopic since patient has no pain. Prior records indicates patient does have a be positive blood and reason why RhoGAM protocol was not initiated. Will contact her developer prover mechanical once the hCG has been reported from today and ultrasound has been interpreted by radiologist. Will monitor blood pressure. Lab Data Labs: Laboratory Results - last 24 hr 03/15/24 09:01 HCG, Quant 10380 H hCG has essentially tripled since the . Radiography Diagnostic Testing: Clinical Impression(s) from Imaging Studies Obstetrics Ultrasound 03/15/24 08:50 IMPRESSION: Single live intrauterine at 6 weeks, 2 days by current ultrasound LUIS of 11/06/2024, and heart rate at 103 bpm. No suspicious sonographic findings Electronically Signed: Rikki Brown MD at 10:56 EST Reading Location ID and State: [facility] / [place] , Service support , Treatment and Re-Evaluation Narrative: Dr. Paz Adkins was paged. Will discuss patient's history physical laboratory results and ultrasound results. (1100) Spoke with Dr. Adkins at 1112. She was informed history, physical. Agrees with assessment to discharge home. She will send a note to her staff that she she will need an appointment to be seen. Discharge Plan Triage Chief Complaint: Vag Bld, Preg ED Provider: Jay Jay Stevenson Dx/Rx/DC Orders Clinical Impression: Threatened in first trimester, Elevated blood-pressure reading without diagnosis of hypertension, History of anxiety Prescriptions: No Action PNV-DHA 27 mg iron-1 mg -300 mg capsule 1 cap PO DAILY aspirin [Adult Aspirin Regimen] 81 mg tablet,delayed release (DR/EC) 81 mg PO DAILY Primary Care Provider: Emmie Singh BROKERAGE MANAGER Referrals: Berta Adkins DO [Med Staff - Active Staff] - 3-5 Days Emmie Singh NP, BROKERAGE MANAGER-C [Primary Care Provider] - 1-2 Weeks Activity Restrictions/Additional Instructions: 1. Contact nurse practitioner Emmie Singh for blood pressure reassessment in 1 to 2 weeks 2. Contact Paz Adkins's office for follow-up appointment Print Language: Croatian Disposition Disposition: Home, Self Care
[2024-03-15 09:54] LABS: hCG Titer Quant., Serum 11631 mIU/mL (1-3)
[2024-03-15 10:46] VITALS: BP 142/82; PULSE 89
[2024-03-15 11:33] VITALS: BP 136/88; PULSE 84; RESP 16; TEMP 37.1; O2SAT 99
== END 2024-03-15 11:34 | disposition home or self-care (01) ==
PROVIDERS: Emergency Provider Emergency Medicine; PCP Registered Nurse; Visit Provider Emergency Medicine
DX: O20.0 Threatened abortion (principal); O26.891 Other specified pregnancy related conditions, first trimester; R03.0 Elevated blood-pressure reading, without diagnosis of hypertension; F41.9 Anxiety disorder, unspecified; O99.341 Other mental disorders complicating pregnancy, first trimester; Z3A.01 Less than 8 weeks gestation of pregnancy; Z90.49 Acquired absence of other specified parts of digestive tract
CPT/HCPCS: 76817; 84702; 99283

== ENCOUNTER 2024-09-13 17:58 | Outpatient (CLI) | payer OTHER, SELFPAY ==
[2024-09-13] VITALS (8 sets, daily range): BP systolic 130–155; BP diastolic 63–80; PULSE 104–135; RESP 18; TEMP 37.1; O2SAT 98; BMI 49.9
[2024-09-13 19:12] LABS: AST(SGOT) 15 U/L (<=31); Alanine Aminotransfer ALT/SGPT 14 U/L (<=34); Creatinine, Serum 0.43 mg/dL (0.70-1.20); EST Glomerular Filtration Rate 139 (>60); Protein, Urine (Random) 10.2 mg/dL (0.0-12.0); Protein:Creat Ratio 107 mg/g CRE (0-200)
[2024-09-13 19:14] LABS: Hemoglobin 13.2 g/dL (12.0-15.0); Mean Corp Hgb Conc 33.8 g/dL (32-36); Mean Corpuscular Hgb 27.7 pg (27.0-32.0); Mean Corpuscular Volume 81.9 fL (81-99); Mean Platelet Vol. 10.6 fl (6.2-12.0); Platelet Count 300 K/mm3 (150-450); RBC Distribution Width CV 14.3 % (11.6-14.6); RBC Distribution Width SD 41.8 fl (35.1-43.9); Red Blood Count 4.76 M/mm3 (4.2-5.4)
[2024-09-13] MEDS: NIFEdipine 30 MG Tablet PO (20:01)
--- NOTE | 2024-09-16 13:45 | OB.TRI.NOTE ---
HPI - General General Date of Admission: 09/13/24 Date of Service: 09/13/24 Chief Complaint: elevated BP HPI Narrative CHRISSIE COLBY, is a 23 F who presents from home with elevated BP's at work. No WEST, vision changes, upper abd pain, nausea, vomiting, ctx, vb, lof. [facility] Medical History Incomplete Anxiety Home Medications ?Medication ?Instructions ?Recorded ?Last Taken ?Type multivitamin no.47-iron fum 27 1 cap PO DAILY 11/04/23 09/13/24 History mg-folate no.1 1 mg-dha 300 mg capsule (PNV-DHA) aspirin 81 mg tablet,delayed 81 mg PO DAILY 03/15/24 09/13/24 History release (Adult Aspirin Regimen) Allergy/AdvReac Type Severity Reaction Status Date / Time No Known Allergies Allergy Verified 09/13/24 19:41 Family History Mother Diabetes, Onset Age: 35 Type 2 Father Diabetes, Onset Age: 40 Type 2 Grandfather Heart disease Paternal Grandmother Diabetes Paternal Surgical History Status post dilation and curettage [place] teeth extracted History of cholecystectomy Social History adopted: No household members: spouse current occupational status: employed current occupation: [employer] current occupational exposures/hazards: No pets and animals: Yes pets and animals: dog(s) history of recent travel: No sexually active: Yes Smoking Status: Never smoker alcohol intake: never substance use type: does not use well-balanced diet: daily or most days caffeine: No eating out: 1-3 times/week during the past year weight has: increased > 10 lbs what type of physical activity do you participate in: walking and other details: yard work frequency: 1-2 times per week duration: 30-45 minutes/day kenyetta/hindu: Restorationism seatbelt use: always do you feel safe at home: Yes 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 History 1 Elective abortions Hx Para 0 Spontaneous abortions 1 Hx # Term Pregnancies Ectopic pregnancies Hx # Pregnancies Multiple births # of living children Physical Exam Const alert and no apparent distress General Appearance: comfortable HEENT normocephalic Resp normal respiratory effort GI soft to palpation, non-tender and non-distended Neuro deep tendon reflexes 2+ bilaterally NST FHR Rate Baby A Baseline: 135 Variability:: Moderate Accelerations:: 15 x 15 Decelerations:: None NST Reactive:: Yes FHR Category:: Category I Assessment & Plan (1) 32 weeks gestation of : (2) Elevated blood pressure affecting in third trimester, antepartum: PLAN: BP's in triage mild range. Pre e labs normal. The patient has no symptoms of pre e. Upon chart review patient likely has cHTN. PCP notes from [facility] showed elevated BP's. Multiple visits in [facility] show elevated BP's. BP elevated at 7 week gestation. Discussed with patient likely cHTN so start Procardia 30 mg once daily given severe range BP's at work. Discussed warning signs and symptoms of pre e. Follow up in office in 24-48 hours for BP check and bring home BP cuff.
== END 2024-09-13 20:02 | disposition home or self-care (01) ==
LOC: WPOUT 17:59 → WP 18:00
PROVIDERS: PCP Registered Nurse; Referring Provider Obstetrics & Gynecology; Visit Provider Obstetrics & Gynecology
DX: O99.891 Other specified diseases and conditions complicating pregnancy (principal); Z90.49 Acquired absence of other specified parts of digestive tract; R03.0 Elevated blood-pressure reading, without diagnosis of hypertension; Z3A.32 32 weeks gestation of pregnancy
CPT/HCPCS: 36415; 59025; 59050; 82565; 82570; 84156; 84450; 84460; 84550; 85027; 99221; G0378

== ENCOUNTER 2024-10-07 11:40 | Outpatient (CLI) | payer OTHER, SELFPAY ==
[2024-10-07] VITALS (7 sets, daily range): BP systolic 135–146; BP diastolic 68–78; PULSE 99–108; RESP 16; TEMP 37; BMI 49.6
[2024-10-07 12:39] LABS: Hematocrit 38.7 % (37-47); Hemoglobin 13.1 g/dL (12.0-15.0); Mean Corp Hgb Conc 33.9 g/dL (32-36); Mean Corpuscular Hgb 27.8 pg (27.0-32.0); Mean Platelet Vol. 11.1 fl (6.2-12.0); Platelet Count 306 K/mm3 (150-450); RBC Distribution Width CV 14.5 % (11.6-14.6); RBC Distribution Width SD 42.6 fl (35.1-43.9); Red Blood Count 4.72 M/mm3 (4.2-5.4)
[2024-10-07 12:59] LABS: Protein, Urine (Random) 16.5 mg/dL (0.0-12.0); Protein:Creat Ratio 100 mg/g CRE (0-200)
[2024-10-07 13:06] LABS: AST(SGOT) 16 U/L (<=31); Alanine Aminotransfer ALT/SGPT 13 U/L (<=34); Creatinine, Serum 0.52 mg/dL (0.70-1.20); EST Glomerular Filtration Rate 133 (>60); Estimated Creatinine Clearance 232.58 ml/min (50-250); Uric Acid 6.2 mg/dL (2.6-6.0)
--- NOTE | 2024-10-12 13:19 | OB.TRI.NOTE ---
HPI - General General Date of Admission: 10/07/24 Date of Service: 10/07/24 Chief Complaint: elevated bp HPI Narrative CHRISSIE COLBY, is a 23 F who presents with elevated BP Maternal Data Information Final LUIS: 11/08/24 Gestational age: 35 3/7 [facility] Medical History (Updated 10/12/24 @ 13:[address] Alanna Soni MD) Incomplete Anxiety Home Medications ?Medication ?Instructions ?Recorded ?Last Taken ?Type multivitamin no.47-iron fum 27 1 cap PO DAILY 11/04/23 10/06/24 History mg-folate no.1 1 mg-dha 300 mg capsule (PNV-DHA) aspirin 81 mg tablet,delayed 81 mg PO DAILY 03/15/24 10/06/24 History release (Adult Aspirin Regimen) labetalol 100 mg tablet 200 mg PO TID 10/07/24 10/07/24 History nifedipine 30 mg tablet,extended 30 mg PO DAILY 10/07/24 10/06/24 History release 24 hr (Procardia XL) Allergy/AdvReac Type Severity Reaction Status Date / Time No Known Allergies Allergy Verified 10/07/24 11:58 Family History Mother Diabetes, Onset Age: 35 Type 2 Father Diabetes, Onset Age: 40 Type 2 Grandfather Heart disease Paternal Grandmother Diabetes Paternal Surgical History (Updated 10/12/24 @ 13:[address] Alanna Soni MD) Status post dilation and curettage [place] teeth extracted History of cholecystectomy Social History adopted: No household members: spouse current occupational status: employed current occupation: [employer] current occupational exposures/hazards: No pets and animals: Yes pets and animals: dog(s) history of recent travel: No sexually active: Yes Smoking Status: Never smoker alcohol intake: never substance use type: does not use well-balanced diet: daily or most days caffeine: No eating out: 1-3 times/week during the past year weight has: increased > 10 lbs what type of physical activity do you participate in: walking and other details: yard work frequency: 1-2 times per week duration: 30-45 minutes/day kenyetta/protestant: Hinduism seatbelt use: always do you feel safe at home: Yes 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 F/u in office within 1 week or return prn for signs/symptoms of preeclampsia
== END 2024-10-07 13:50 | disposition home or self-care (01) ==
LOC: WPOUT 11:50 → WP 11:50
PROVIDERS: PCP Registered Nurse; Referring Provider Obstetrics & Gynecology; Visit Provider Obstetrics & Gynecology
DX: O13.3 Gestational [pregnancy-induced] hypertension without significant proteinuria, third trimester (principal); E66.01 Morbid (severe) obesity due to excess calories; O09.93 Supervision of high risk pregnancy, unspecified, third trimester; O99.213 Obesity complicating pregnancy, third trimester; Z3A.35 35 weeks gestation of pregnancy; Z79.82 Long term (current) use of aspirin; Z79.899 Other long term (current) drug therapy
CPT/HCPCS: 59025; 59050; 82565; 82570; 84156; 84450; 84460; 84550; 85027; 99221; G0378

== ENCOUNTER 2024-10-19 19:15 | Inpatient (IN) | payer OTHER, SELFPAY ==
[2024-10-19] VITALS (7 sets, daily range): BP systolic 138–149; BP diastolic 67–92; PULSE 99–131; RESP 16; TEMP 36.9–37.4; O2SAT 92–98; BMI 50.7
[2024-10-19 20:24] LABS: Absolute Lymphocyte Count 1.74 X10^3/uL (0.83-4.51); Basophil# 0.05 X10^3/uL; Basophil% 0.4 % (0-1); Eosinophils% 0.8 % (0-5); Hematocrit 37.9 % (37-47); Hemoglobin 12.9 g/dL (12.0-15.0); Lymphocyte # 1.74 X10^3/ul (0.83-4.51); Lymphocyte % 14.8 % (19-41); Mean Corpuscular Volume 82.2 fL (81-99); Mean Platelet Vol. 11.8 fl (6.2-12.0); Monocyte# 0.81 X10^3/uL; Monocyte% 6.9 % (0-10); NRBC Flagged by Analyzer 0 % (0-5); Neutrophil # 8.98 X10^3/uL (2.7-7.7); Neutrophil % 76.2 % (47-70); Platelet Count 277 K/mm3 (150-450); RBC Distribution Width CV 14.6 % (11.6-14.6); RBC Distribution Width SD 42.8 fl (35.1-43.9); Red Blood Count 4.61 M/mm3 (4.2-5.4); White Blood Count 11.8 K/mm3 (4.4-11.0)
[2024-10-19 20:52] LABS: Syphilis Antibodies Nonreactive (Nonreactive)
--- NOTE | 2024-10-19 20:56 | PCM.HP.OB ---
HPI - General General Date of Admission: 10/19/24 Date of Service: 10/19/24 HPI Narrative CHRISSIE COLBY, is a 23 F who presents for induction. Maternal Data Information LUIS Calculator Estimated Delivery Date Method Current WG Current Estimate 11/08/24 Manual 37w 1d PFSH [facility] Medical History Incomplete Anxiety Home Medications ?Medication ?Instructions ?Recorded ?Last Taken ?Type multivitamin no.47-iron fum 27 1 cap PO DAILY 11/04/23 10/18/24 History mg-folate no.1 1 mg-dha 300 mg capsule (PNV-DHA) aspirin 81 mg tablet,delayed 81 mg PO DAILY 03/15/24 10/18/24 History release (Adult Aspirin Regimen) labetalol 100 mg tablet 200 mg PO TID 10/07/24 10/19/24 History nifedipine 30 mg tablet,extended 30 mg PO DAILY 10/07/24 10/18/24 History release 24 hr (Procardia XL) Allergy/AdvReac Type Severity Reaction Status Date / Time No Known Allergies Allergy Verified 10/19/24 19:40 Family History Mother Diabetes, Onset Age: 35 Type 2 Father Diabetes, Onset Age: 40 Type 2 Grandfather Heart disease Paternal Grandmother Diabetes Paternal Surgical History Status post dilation and curettage [place] teeth extracted History of cholecystectomy Social History adopted: No household members: spouse current occupational status: employed current occupation: [email or web address] current occupational exposures/hazards: No pets and animals: Yes pets and animals: dog(s) history of recent travel: No sexually active: Yes Smoking Status: Never smoker alcohol intake: never substance use type: does not use well-balanced diet: daily or most days caffeine: No eating out: 1-3 times/week during the past year weight has: increased > 10 lbs what type of physical activity do you participate in: walking and other details: yard work frequency: 1-2 times per week duration: 30-45 minutes/day kenyetta/confucianist: Restorationist seatbelt use: always do you feel safe at home: Yes 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 History 1 Elective abortions Hx Para 1 Spontaneous abortions 1 Hx # Term Pregnancies Ectopic pregnancies Hx # Pregnancies Multiple births # of living children NST FHR Rate Baby A Baseline: 145 Variability:: Moderate Accelerations:: 15 x 15 Decelerations:: None Uterine Activity:: quiet Vital Signs Vital Signs Vital Signs: 10/19/24 19:34 10/19/24 19:34 10/19/24 19:34 Temperature Temperature Source Pulse Rate 113 H Respiratory Rate Blood Pressure 140/71 H BP Systolic 140 BP Diastolic 71 Pulse Ox 93 10/19/24 19:35 10/19/24 19:35 10/19/24 19:35 Temperature 99.3 F H Temperature Source Temporal Pulse Rate Respiratory Rate 16 Blood Pressure BP Systolic BP Diastolic Pulse Ox 10/19/24 19:35 Temperature 99.3 F H Temperature Source Pulse Rate Respiratory Rate Blood Pressure BP Systolic BP Diastolic Pulse Ox Weight Weight: 305 lb Body Mass Index (BMI) 50.7 Physical Exam Const alert, oriented x3 and no apparent distress Chest inspection of chest normal GI soft to palpation, non-tender and non-distended Inspection: gravid external exam normal Narrative: cvx - 1/50/-2 Labs Labs Labs: Blood Type AB POSITIVE Antibody Screen Pending Hct 37.9 % (37-47) Hgb 12.9 g/dL (12.0-15.0) Obstetrics Ultrasound Syphilis Total Ab Nonreactive (Nonreactive) Chlamydia DNA (GUS) Negative (Negative) N.gonorrhoeae DNA (GUS) Negative (Negative) Assessment & Plan (1) Obesity affecting in third trimester: QUALIFIERS: Obesity type affecting : unspecified obesity Qualified Code(s): O99.213 - Obesity complicating , third trimester COMMENT: @ 37&1 (2) Single umbilical artery: (3) Chronic hypertension: PLAN: Plan Admit to L&D. Induction - intracervical gerardo placed with incidental AROM. Will start cytotec. EFW - less than 4500g and patient with adequate pelvis. GBS positive - pcn per protocol. Chtn - continue labetalol & procardia. Pain - epdidural as desired. Routine care.
[2024-10-19] MEDS: Lactated Ringers 1,000 ML 50 ML IV (21:30)
[2024-10-19] MEDS: Labetalol 200 MG Tablet PO (21:56)
[2024-10-19] MEDS: miSOPROStol 25 MCG TABLET PO (23:01)
[2024-10-20] VITALS (77 sets, daily range): BP systolic 101–152; BP diastolic 57–96; PULSE 82–129; RESP 16–18; TEMP 36.2–38.4; O2SAT 93–100
--- OUTSIDE RECORDS SUMMARY | 2024-10-20 00:27 | XMS RPT_ITS | CCD ---
Author Organization [facility] Care Team Providers Care Veterinary Technician Name Role Phone Favian Mariee Mario Primary Care Provider [phone] ERIN SINGH Attending Unavailable [facility] Unavailable [facility] Provider [phone] Nemo Thompson RN Unavailable UnavailDONNA Bey Admitting Unavailable DONNA COURTNEY Attending Unavailable [facility] UnavailMELI Castaneda Attending Unavailable [facility] Unavailabl [facility]anie [facility] Unavailjaqui Singh NP-C, [place] [facility] Provider [phone] Dr. Darryl Akdins DO Attending Provider Dr. Darryl Adkins DO Referring Provider Darryl Adkins Attending Unavailable Francisco BANK COMPLIANCE OFFICER, [place] [facility] Unavailable Darryl Adkins Referring Unavailable Darryl Adkins Attending Unavailable Francisco BANK COMPLIANCE OFFICER, [place] [facility] Unavailable Darryl Adkins Referring Unavailable Francisco BANK COMPLIANCE OFFICER, [place] [facility] Unavailable Len, Niru Referring Unavailable Niru Harrington Attending Unavailable Len Niru Admitting Unavailable Francisco BANK COMPLIANCE OFFICER, [place] [facility] Unavailable Jay Jay Stevenson Attending Unavailable Francisco BANK COMPLIANCE OFFICER, [place] [facility] Unavailable Francisco BANK COMPLIANCE OFFICER, Erin Referring Unavailable Niru Ireland Attending Unavailjaqui Singh BANK COMPLIANCE OFFICER, [place] [facility] Unavailable Francisco BANK COMPLIANCE OFFICER, Erin Referring Unavailable Niru Ireland Attending Unavailjaqui Singh BANK COMPLIANCE OFFICER, [place] [facility] Unavailable Niru Ireland Consulting UnavailNiur Gage Attending Unavailabl joanie Singh BANK COMPLIANCE OFFICER, [facility] Unavailable Niru Ireland Attending Unavailabl e Velde, Niru Vande Referring Unavailabl e Francisco BANK COMPLIANCE OFFICER, [facility] Unavailable Niru Ireland Attending Unavailabl e Velde, Niru Vande Referring Unavailabl e Francisco BANK COMPLIANCE OFFICER, [facility] Unavailable Irma Miner Referring Unavailable Irma Miner Attending Unavailable Francisco BANK COMPLIANCE OFFICER, [facility] Care Unavailable Irma Miner Referring Unavailable Irma Miner Attending Unavailable Francisco BANK COMPLIANCE OFFICER, [facility] Unavailable Velde, Niru Marlae Referring Unavailabl e Velde, Niru Marlae Attending Unavailabl e Francisco BANK COMPLIANCE OFFICER, [place] Referring Unavailable Francisco BANK COMPLIANCE OFFICER, [facility] Care Unavailable Irma Miner Attending Unavailable Francisco BANK COMPLIANCE OFFICER, [facility] Unavailable VelNiru harvey Attending Unavailabl e DARRYL ADKINS Referring Unavailable [facility] Unavailabl e [facility] Unavailabl e DEB RICHARD Attending Unavailable DEB RICHARD Referring Unavailable [facility] Unavailabl e DEB RICHARD Referring Unavailable NIRU HARRINGTON Referring Unavailable [facility] Unavailabl e [facility] Unavailabl e DEB RICHARD Referring Unavailable [facility] Unavailabl e AHMEDBELLEMED Referring Unavailable JESSI RAMIREZ Attending Unavail able [facility] Unavailabl e NIRU HARRINGTON Referring Unavailable [facility] Unavailabl e [facility] Unavailabl e DEB RICHARD Referring Unavailable [facility] Unavailabl ANKITA Daley Attending Unavailable [facility] Unavailabl ANKITA Daley Referring Unavailable FAISAL COLLINS Attending Unavailable [facility] Unavailabl e JAYLENE, [facility] Unavailabl e NIRU HARRINGTON Referring Unavailable DEB RICHARD Attending Unavailable [facility] Unavailabl e LEN, NIRU Referring Unavailable [facility] NIRU HARRINGTON Attending Unavailable DARRYL ADKINS Referring Unavailable [facility] Care Unavailabl e GITA NATION Attending Unavailable [facility] Care Unavailabl e LEN, NIRU Referring Unavailable [facility], [facility] Care Unavailabl e PLOTCHIKI, DEB Referring Unavailable JAYLENE, [facility] Care Unavailabl e PLOTTS, DEB Referring Unavailable LEN, NIRU Referring Unavailable [facility], [facility] Care Unavailabl e JAYLENE, [facility] Care Unavailabl e THEO BOYLE Attending Unavailable LEN, NIRU Referring Unavailable [facility], [facility] Care Unavailabl e LUZ EELNA LAGUNA Attending Unavailable [facility] Care Unavailabl e ANKITA CARRILLO Referring Unavailable [facility] Care Unavailabl e NIRU HARRINGTON Attending Unavailable [facility] Care Unavailabl e THEO BOYLE Referring Unavailable [facility] Referring Unavailable [facility] Unavailabl e [facility], [facility] Care Unavailabl e THEO BOYLE Referring Unavailable [facility] Care Unavailabl RACHEL Banegas Attending Unavailable LEN, NIRU Referring Unavailable [facility] Care Unavailabl e GITA NATION Attending Unavailable [facility] Care Unavailabl e LEN, NIRU Referring Unavailable GITA NATION Referring Unavailable [facility] Unavailabl e [facility], [facility] Care Unavailabl e LEN, NIRU Referring Unavailable [facility] Care Unavailabl e LEN, NIRU Referring Unavailable LEN NIRU Attending Unavailable [facility] Primary Care Unavailabl e LEN, NIRU Referring Unavailable [facility], [facility] Primary Care Unavailabl e WILLA SMITH Referring Unavailable [facility], [facility] Care Unavailabl e LEN, NIRU Attending Unavailable BELLE LAGUNAMED Referring Unavailable [facility], [facility] Primary Care Unavailabl e LEN, NIRU Referring Unavailable LEN, NIRU Attending Unavailable [facility], [facility] Primary Care Unavailabl RACHEL Rooney Attending Unavailable SELF Referring Unavailable DARRYL ADKINS Referring Unavailable FAVIAN MARIEE [facility] UnavailFAVIAN Mendoza [facility] UnavailRACHEL Diaz Attending Unavailable FAVIAN MARIEE MARIO [facility] UnavailLUZ ELENA Beltran Referring Unavailable DARRYL ADKINS Attending Unavailable FAVIAN MARIEE [facility] Unavaileast [facility] Medications Current Medications Medication Drug Class(es) Dates Sig (Normalized) Sig (Original) amoxicillin 875 mg / clavulanate 125 mg oral tablet (4 sources) Penicillin-class Antibacterial Start: 03-21-2023 End: 03-31-2023 take 1 tablet by mouth twice daily amoxicillin-clavu lanate (Augmentin) 875-125 MG tablet Indications: Bilateral acute serous otitis media, recurrence not specified , Pharyngitis, unspecified etiology Take 1 tablet by mouth 2 times daily for 10 days. 20 tablet 0 03/21/2023 03/31/2023 Active aspirin 81 mg delayed release oral tablet (20 sources) Platelet Aggregation Inhibitor, Nonsteroidal Anti-inflammatory Drug Start: 03-15-2024 take 1 tablet by mouth once daily Aspirin (Adult Aspirin Regimen) 81 mg tablet,delayed release (DR/EC) Active 81 mg PO DAILY March 15, 2024 1:00am Start: 02-16-2024 End: 02-19-2024 take 1 capsule by mouth once daily aspirin 81 mg cap Indications: History of miscarriage Take 81 mg by mouth once daily. Starting with positive test. 30 capsule 1 02/16/2024 02/19/2024 Discontinued ethinyl estradiol 0.02 mg / levonorgestrel 0.1 mg oral tablet (1 source) Progestin, Estrogen, Progestin-containing Intrauterine Device Start: 10-02-2017 take 1 tablet by mouth once daily levonorgestrel-ethinyl estradiol (AVIANE;ALESSE;LESSINA) 0.1-20 MG-MCG per tablet Take 1 tablet by mouth daily 1 packet 3 10/02/2017 Active labetalol hydrochloride 100 mg oral tablet (11 sources) beta-Adrenergic Amy Start: 10-07-2024 take 2 tablets by mouth three times daily Labetalol 100 mg tablet Active 200 mg PO THREE TIMES A DAY October 07, 2024 12:00am Start: 09-21-2024 take 1 tablet by chetna three times daily labetalol (TRANDATE) 200 mg tablet Take 1 tablet by mouth three times a day. 270 tablet 1 09/21/2024 Active Multivit 61-Mndi-Dqokgy 1-Dha (Pnv-Dha) 27 mg iron-1 mg -300 mg capsule (2 sources) Start: 11-04-2023 Multivit 23-Camb-Slblgj 1-Dha (Pnv-Dha) 27 mg iron-1 mg -300 mg capsule Active 1 NMA PO DAILY November 04, 2023 12:00am NIFEdipine 30 mg osmotic 24 hr extended release oral tablet (12 sources) Dihydropyridine Calcium Channel Amy Start: 09-13-2024 take 1 tablet by mouth once daily NIFEdipine ER (PROCARDIA XL) 30 mg 24 hr tablet Take 1 tablet by mouth once daily. 90 tablet 3 09/13/2024 Active nitrofurantoin, macrocrystals 25 mg / nitrofurantoin, monohydrate 75 mg oral capsule (1 source) Nitrofuran Antibacterial Start: 09-06-2022 End: 09-13-2022 take 1 capsule by mouth twice daily at mealtime nitrofurantoin, macrocrystal-monoh ydrate, (Macrobid) 100 MG capsule Indications: Urinary frequency , Dysuria , Leukocytes in urine Take 1 capsule (100 mg) by mouth 2 times daily for 7 days. Take with food. 14 capsule 0 09/06/2022 09/13/2022 Active VIT 2-GQMN-WFGJF-DHA ORAL (20 sources) VIT 6-MDIW-WBJZR-DHA ORAL Take by mouth. Active selenium sulfide 22.5 mg/ml medicated shampoo (1 source) Start: 01-21-2018 Selenium Sulfide 2.25 % SHAM MASSAGE 5 TO 10 MILLILITERS OF SHAMPOO INTO WET SCALP - LEAVE ON SCALP FOR 2 TO 3 MINUTES - RINSE THOROUGHLY FOR 2 APPLICATIONS EACH WEEK 180 mL 1 01/21/2018 Active sertraline 100 mg oral tablet (1 source) Serotonin Reuptake Inhibitor Start: 11-18-2018 take 1 tablet by mouth once daily sertraline (ZOLOFT) 100 MG tablet Indications: Mild episode of recurrent major depressive disorder (HCC) Take 1 tablet by mouth daily 30 tablet 5 11/18/2018 Active sodium chloride flush 0.9 % injection 3 mL (1 source) Start: 02-15-2019 sodium chloride flush 0.9 % injection 3 mL tobramycin 3 mg/ml ophthalmic solution (5 sources) Aminoglycoside Antibacterial Start: 03-17-2023 End: 03-24-2023 take 2 drop(s) into the eye(s) four times daily tobramycin (Tobrex) 0.3 % ophthalmic solution Administer 2 drops into both eyes 4 times daily for 7 days. 5 mL 0 03/17/2023 03/24/2023 Active Completed/Discontinued Medications Medication Drug Class(es) Dates Sig (Normalized) Sig (Original) acetaminophen 325 mg / HYDROcodone bitartrate 5 mg oral tablet (2 sources) Opioid Agonist Start: 11-20-2023 End: 12-08-2023 Hydrocodone-Acetam inophen 5-325 mg tablet Discontinued 1 {tbl} PO Q4H as needed for pain 10 November 20, 2023 December 08, 2023 9:29am acetaminophen 325 mg / oxyCODONE hydrochloride 5 mg oral tablet (2 sources) Opioid Agonist Start: 11-20-2023 End: 12-08-2023 take 1-2 tablets by mouth every four hours as needed for pain Oxycodone-Acetamin ophen (Percocet) 5-325 mg tablet Discontinued 1 {tbl} PO Q4H as needed for pain 10 November 20, 2023 December 08, 2023 9:29am 1-2 tabs q 4 hrs as needed for pain amoxicillin 500 mg oral capsule (13 sources) Penicillin-class Antibacterial Start: 03-18-2023 End: 03-22-2024 take 1 capsule by mouth three times daily amoxicillin (Amoxil) 500 MG capsule Take 1 capsule (500 mg) by mouth 3 times daily for 7 days. 21 capsule 0 03/18/2023 03/21/2023 Discontinued (Formulary change) Doxylamine (16 sources) End: 08-17-2024 doxylamine succinate (UNISOM, DOXYLAMINE, ORAL) Take by mouth. 08/17/2024 Discontinued (Course of therapy completed) doxylamine succi adeel (UNISOM, DOXYLAMINE, ORAL) Take by mouth. Active FLUoxetine 40 mg oral capsule (20 sources) Serotonin Reuptake Inhibitor Start: 04-05-2022 End: 03-22-2024 take 1 capsule by mouth once daily FLUoxetine (PROzac) 40 MG capsule Indications: Mild episode of recurrent major depressive disorder (HCC) , Anxiety Take 1 capsule (40 mg) by mouth daily. 90 capsule 1 10/07/2022 01/21/2024 Discontinued (Med list cleanup) hydrocortisone 10 mg/ml / neomycin 3.5 mg/ml / polymyxin b [id number] unt/ml otic solution (7 sources) Aminoglycoside Antibacterial, Polymyxin-class Antibacterial, Corticosteroid Start: 03-21-2023 End: 01-21-2024 neomycin-polymyxi n-hydrocortisone (Cortisporin) otic solution Indications: Bilateral acute serous otitis media, recurrence not specified Administer 3 drops into each ear in the morning and 3 drops at noon and 3 drops in the evening and 3 drops before bedtime. 10 mL 03/21/2023 01/21/2024 Discontinued (Med list cleanup) hydrOXYzine hydrochloride 10 mg oral tablet (7 sources) Antihistamine Start: 10-07-2022 End: 03-17-2023 take 1 tablet by mouth every eight hours as needed for anxiety and anxiety and anxiety hydrOXYzine HCl (Atarax) 10 MG tablet Indications: Anxiety Take 1 tablet (10 mg) by mouth every 8 hours as needed for anxiety. 30 tablet 0 10/07/2022 03/17/2023 Discontinued Start: 02-04-2022 End: 09-06-2022 take 1 tablet by mouth every eight hours as needed for anxiety hydrOXYzine HCl (Atarax) 10 MG tablet Take 10 mg by mouth every 8 hours as needed for anxiety. 0 02/04/2022 09/06/2022 Discontinued (Med list cleanup) ibuprofen 800 mg oral tablet (2 sources) Nonsteroidal Anti-inflammatory Drug Start: 11-20-2023 End: 12-08-2023 take 1 tablet by mouth every eight hours as needed for pain Ibuprofen 800 mg tablet Discontinued 800 mg PO Q8H as needed for pain November 20, 2023 12:00am December 08, 2023 9:29am 1 ml ketorolac tromethamine 30 mg/ml cartridge (1 source) Nonsteroidal Anti-inflammatory Drug, Cyclooxygenase Inhibitor Start: 02-15-2019 End: 02-15-2019 ketorolac (TORADOL) injection 15 mg methylPREDNISolone 4 mg oral tablet (7 sources) Corticosteroid Start: 03-21-2023 End: 01-21-2024 methylPREDNISolone (Medrol Dospak) 4 MG tablets Indications: Pharyngitis, unspecified etiology Take as directed on package. 21 tablet 03/21/2023 01/21/2024 Discontinued (Med list cleanup) ondansetron 4 mg oral tablet (18 sources) Serotonin-3 Receptor Antagonist Start: 04-29-2024 End: 08-17-2024 take 1 tablet by mouth every eight hours as needed ondansetron (ZOFRAN) 4 mg tablet Take 1 tablet by mouth every 8 hours as needed for nausea/vomiting. 60 tablet 1 04/29/2024 08/17/2024 Discontinued (Course of therapy completed) Start: 02-15-2019 take 1 tablet by chetna th every eight hours as needed for nausea ondansetron (ZOFRAN) 4 MG tablet Take 1 tablet by mouth every 8 hours as needed for Nausea 10 tablet 0 02/15/2019 Active Start: 02-15-2019 End: 02-15-2019 ondansetron (ZOFRAN) injecti on 4 mg progesterone 200 mg oral capsule (15 sources) Progesterone Start: 02-16-2024 End: 04-29-2024 progesterone micronized (PROMETRIUM) 200 mg capsule Indications: History of miscarriage Use 1 capsule vaginally daily at bedtime. Starting with positive test. 30 capsule 1 02/16/2024 04/29/2024 Discontinued Start: 12-30-2023 End: 03-15-2024 Progesterone Micronized 100 mg insert Discontinued 100 mg VAGINAL TWICE A DAY 60 December 30, 2023 12:00am March 15, 2024 11:55am pyridoxine HCl, vitamin B6, (VITAMIN B-6 ORAL) (20 sources) End: 09-21-2024 pyridoxine HCl, vitamin B6, (VITAMIN B-6 ORAL) Take by mouth. 09/21/2024 Discontinued (Other) pyridoxine HCl, vitamin B6, (VITAMIN B-6 ORAL) Take by mouth. Active 50 ml sodium chloride 9 mg/ml injection (1 source) Start: 02-15-2019 End: 02-15-2019 0.9 % sodium chloride bolus VAZALORE 81 mg cap (10 sources) Start: 03-08-2024 End: 03-22-2024 take 1 capsule by mouth once daily VAZALORE 81 mg cap Indications: History of miscarriage TAKE 81 MG BY MOUTH ONCE DAILY. STARTING WITH POSITIVE TEST. 30 capsule 1 03/08/2024 03/22/2024 Discontinued (Discontinued by Patient) Start: 03-08-2024 take 1 capsule by mo uth once daily VAZALORE 81 mg cap Indications: History of miscarriage TAKE 81 MG BY MOUTH ONCE DAILY. STARTING WITH POSITIVE TEST. 30 capsule 1 03/08/2024 Active Start: 02-19-2024 End: 03-08-2024 take 1 capsule by mouth once daily VAZALORE 81 mg cap Indications: History of miscarriage TAKE 81 MG BY MOUTH ONCE DAILY. STARTING WITH POSITIVE TEST. 30 capsule 1 02/19/2024 03/08/2024 Discontinued Start: 02-19-2024 take 1 capsule by mo uth once daily VAZALORE 81 mg cap Indications: History of miscarriage TAKE 81 MG BY MOUTH ONCE DAILY. STARTING WITH POSITIVE TEST. 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 (20 sources) Hypospadias, penile; Translations: [Hypospadias, penile] Onset: 08-18-2024 08-18-2024 Chronic Hypertension complicating ; childbirth and the puerperium (11 sources) Chronic hypertension complicating AND/OR reason for care during childbirth; Translations: [Unspecified pre-existing hypertension complicating childbirth] Onset: 10-11-2024 09-21-2024 Chronic Immunizations and screening for infectious disease (20 sources) Patient encounter status; Translations: [Encounter for screening for human immunodeficiency virus [HIV]] Onset: 01-21-2024 01-21-2024 Episodic Menstrual disorders (8 sources) Amenorrhea; Translations: [Amenorrhea, unspecified] Onset: 10-24-2023 Resolved: 01-21-2024 01-21-2024 Chronic Mood disorders (20 sources) Depressive disorder; Translations: [Depression] Onset: 06-20-2014 11-29-2014 Chronic Other circulatory disease (16 sources) Elevated blood-pressure reading without diagnosis of hypertension; Translations: [Elevated blood-pressure reading, without diagnosis of hypertension] Onset: 09-13-2024 08-04-2024 Episodic Other circulatory disease (1 source) Elevated blood-pressure reading, without diagnosis of hypertension; Translations: [Elevated blood-pressure reading, without diagnosis of hypertension] Onset: 10-13-2024 Episodic Other complications of ; puerperium affecting management of mother (2 sources) Maternal care for (suspected) abnormality and damage, unspecified, not applicable or unspecified; Translations: [ abnormality affecting management of mother, single or unspecified fetus] Onset: 07-06-2024 Episodic Other complications of ; puerperium affecting management of mother (1 source) Suspected disorder; Translations: [Maternal care for (suspected) abnormality and damage, unspecified, not applicable or unspecified] 08-27-2024 Episodic Other complications of (20 sources) Maternal obesity complicating , childbirth and the puerperium, antepartum; Translations: [Obesity complicating , first trimester] Onset: 03-22-2024 03-22-2024 Chronic Other complications of (11 sources) Obesity; Translations: [Obesity complicating , third trimester] 08-27-2024 Chronic Other complications of (1 source) Obesity complicating , third trimester; Translations: [Obesity during in third trimester (HCC)] Onset: 08-27-2024 Chronic Other complications of (1 source) Obesity complicating , second trimester; Translations: [Obesity affecting in second trimester, unspecified obesity type (HCC)] Onset: 05-24-2024 Chronic Other complications of (1 source) Obesity complicating , first trimester; Translations: [Obesity affecting in first trimester, unspecified obesity type] Onset: 03-22-2024 Chronic Other complications of (20 sources) High risk ; Translations: [Supervision of high risk , unspecified, first trimester] Onset: 11-11-2023 Resolved: 01-21-2024 01-21-2024 Episodic Comment on above: , LUIS 06/12/24, H usband Trav Other complications of (20 sources) Single umbilical artery; Translations: [Supervision of other high risk pregnancies, unspecified trimester] Onset: 06-24-2024 06-24-2024 Episodic Other complications of (4 sources) ultrasound scan abnormal; Translations: [Abnormal ultrasonic finding on screening of mother] 07-27-2024 Episodic Other complications of (3 sources) Supervision of other high risk pregnancies, unspecified trimester; Translations: [Single umbilical artery affecting management of mother, antepartum, single gestation] Onset: 06-24-2024 Episodic Other complications of (20 sources) Abdominal pain in ; Translations: [Other specified related conditions, unspecified trimester] Onset: 08-15-2024 08-15-2024 Episodic Other complications of (1 source) Supervision of high risk , unspecified, third trimester; Translations: [Supervision of high risk in third trimester (HCC)] Onset: 09-14-2024 Episodic Other complications of (1 source) Abnormal ultrasonic finding on screening of mother; Translations: [Abnormal ultrasound] Onset: 08-03-2024 Episodic Other nutritional; endocrine; and metabolic disorders (1 source) Body mass index 30+ - obesity; Translations: [Obesity (BMI 35.0-39.9 without comorbidity)] Onset: 05-28-2016 05-28-2016 Chronic Other nutritional; endocrine; and metabolic disorders (20 sources) Body mass index 40+ - severely obese; Translations: [Morbid (severe) obesity due to excess calories] Onset: 05-28-2016 04-05-2022 Chronic Comment on above: A1C Other nutritional; endocrine; and metabolic disorders (3 sources) Morbid (severe) obesity due to excess calories; Translations: [Morbid (severe) obesity due to excess calories (HCC)] Onset: 11-11-2023 Chronic Other nutritional; endocrine; and metabolic disorders (3 sources) Body mass index (BMI) 45.0-49.9, adult; Translations: [Body mass index (BMI) 45.0-49.9, adult (HCC)] Onset: 11-11-2023 Chronic Other screening for suspected conditions (not mental disorders or infectious disease) (8 sources) care status; Translations: [Encounter for other specified screening] Onset: 01-21-2024 04-22-2024 Episodic Otitis media and related conditions (3 sources) Acute serous otitis media of bilateral ears; Translations: [Acute serous otitis media, bilateral] 03-21-2023 Episodic Residual codes; unclassified (3 sources) Influenza vaccination declined; Translations: [Immunization not carried out because of patient refusal] 01-21-2024 Episodic Residual codes; unclassified (6 sources) H/O: miscarriage; Translations: [Personal history of other complications of , childbirth and the puerperium] 02-16-2024 Episodic Comment on above: D&C 11/20/23 Residual codes; unclassified (1 source) Gestation period, 7 weeks; Translations: [Less than 8 weeks gestation of ] 03-22-2024 Episodic Residual codes; unclassified (1 source) Gestation period, 11 weeks; Translations: [11 weeks gestation of ] 04-22-2024 Episodic Residual codes; unclassified (1 source) Gestation period, 12 weeks; Translations: [12 weeks gestation of ] 04-29-2024 Episodic Residual codes; unclassified (1 source) Gestation period, 16 weeks; Translations: [16 weeks gestation of ] 05-24-2024 Episodic Residual codes; unclassified (2 sources) Gestation period, 20 weeks; Translations: [20 weeks gestation of ] 06-24-2024 Episodic Residual codes; unclassified (2 sources) Gestation period, 25 weeks; Translations: [25 weeks gestation of ] 07-27-2024 Episodic Residual codes; unclassified (1 source) Gestation period, 26 weeks; Translations: [26 weeks gestation of ] 08-03-2024 Episodic Residual codes; unclassified (20 sources) Gestation period, 27 weeks; Translations: [27 weeks gestation of ] Onset: 08-15-2024 08-15-2024 Episodic Residual codes; unclassified (2 sources) Gestation period, 29 weeks; Translations: [29 weeks gestation of ] 08-27-2024 Episodic Residual codes; unclassified (1 source) Gestation period, 31 weeks; Translations: [31 weeks gestation of ] 09-10-2024 Episodic Residual codes; unclassified (3 sources) Gestation period, 33 weeks; Translations: [33 weeks gestation of ] 09-21-2024 Episodic Residual codes; unclassified (1 source) Gestation period, 34 weeks; Translations: [34 weeks gestation of ] 09-30-2024 Episodic Residual codes; unclassified (1 source) Gestation period, 35 weeks; Translations: [35 weeks gestation of ] 10-04-2024 Episodic Residual codes; unclassified (2 sources) Gestation period, 32 weeks; Translations: [32 weeks gestation of ] 09-16-2024 Episodic Residual codes; unclassified (1 source) Gestation period, 36 weeks; Translations: [36 weeks gestation of ] 10-11-2024 Episodic Residual codes; unclassified (1 source) Gestation period, 37 weeks; Translations: [37 weeks gestation of ] 10-18-2024 Episodic Residual codes; unclassified (1 source) 37 weeks gestation of ; Translations: [37 weeks gestation of (HCC)] Onset: 10-18-2024 Episodic Residual codes; unclassified (1 source) 36 weeks gestation of ; Translations: [36 weeks gestation of (HCC)] Onset: 10-11-2024 Episodic Residual codes; unclassified (1 source) 35 weeks gestation of ; Translations: [35 weeks gestation of (HCC)] Onset: 10-04-2024 Episodic Residual codes; unclassified (1 source) 34 weeks gestation of ; Translations: [34 weeks gestation of (HCC)] Onset: 09-30-2024 Episodic Residual codes; unclassified (1 source) 33 weeks gestation of ; Translations: [33 weeks gestation of (HCC)] Onset: 09-24-2024 Episodic Residual codes; unclassified (1 source) 32 weeks gestation of ; Translations: [32 weeks gestation of (HCC)] Onset: 09-14-2024 Episodic Residual codes; unclassified (1 source) 31 weeks gestation of ; Translations: [31 weeks gestation of (HCC)] Onset: 09-10-2024 Episodic Residual codes; unclassified (1 source) 29 weeks gestation of ; Translations: [29 weeks gestation of (HCC)] Onset: 08-27-2024 Episodic Residual codes; unclassified (1 source) 25 weeks gestation of ; Translations: [25 weeks gestation of (HCC)] Onset: 07-27-2024 Episodic Unclassified (20 sources) [facility] Education - COMMON Onset: 03-22-2024 03-22-2024 Unclassified (20 sources) Education - [place] Onset: 03-22-2024 03-22-2024 Unclassified (1 source) Other specified diseases and conditions complicating ; Translations: [Other specified diseases and conditions complicating ] Onset: 09-17-2024 Past or Other Problems Problem Classification Problem Date Documented Date Episodic/Chronic Acquired foot deformities (14 sources) Acquired pes planus of left foot; Translations: [Flat foot [pes planus] (acquired), left foot] Onset: 02-27-2021 02-15-2022 Episodic Biliary tract disease (20 sources) Cholecystitis; Translations: [Gallstone] Onset: 06-23-2014 Resolved: 01-21-2024 12-04-2015 Episodic Genitourinary symptoms and ill-defined conditions (7 sources) Increased frequency of urination; Translations: [Frequency of micturition] Onset: 04-02-2024 Episodic Hemorrhage during ; abruptio placenta; placenta previa (9 sources) Threatened miscarriage in first trimester; Translations: [Threatened ] Onset: 11-11-2023 Resolved: 01-21-2024 01-21-2024 Episodic Inflammation; infection of eye (except that caused by tuberculosis or sexually transmitteddisease) (10 sources) Acute infectious conjunctivitis; Translations: [Unspecified acute conjunctivitis, right eye] Onset: 03-17-2023 Resolved: 01-19-2024 03-17-2023 Episodic Mood disorders (14 sources) Mood disorders Onset: 03-04-2022 Resolved: 01-21-2024 03-04-2022 Nausea and vomiting (1 source) Nausea, vomiting and diarrhea; Translations: [Nausea vomiting and diarrhea] Episodic Open wounds of head; neck; and trunk (14 sources) Open wound of anterior abdominal wall ; Translations: [Unspecified open wound of abdominal wall, unspecified quadrant without penetration into peritoneal cavity, initial encounter] Onset: 03-07-2021 Resolved: 03-04-2022 03-04-2022 Episodic Other complications of ; puerperium affecting management of mother (20 sources) condition affecting obstetrical care of mother; Translations: [Maternal care for (suspected) abnormality and damage, unspecified, not applicable or unspecified] Onset: 07-06-2024 07-06-2024 Episodic Other complications of (1 source) Supervision of high risk , unspecified, unspecified trimester; Translations: [Supervision of high risk , unspecified, unspecified trimester] Onset: 11-27-2023 Episodic Other complications of (1 source) Supervision of high risk , unspecified, second trimester; Translations: [Supervision of high risk in second trimester (HCC)] Onset: 05-24-2024 Episodic Other complications of (1 source) Supervision of high risk , unspecified, first trimester; Translations: [Supervision of high risk in first trimester] Onset: 06-24-2024 Episodic Other female genital disorders (15 sources) Premenstrual tension syndrome; Translations: [Premenstrual tension syndrome] Onset: 08-24-2015 Resolved: 01-21-2024 08-24-2015 Chronic Other female genital disorders (8 sources) Recurrent loss; Translations: [Recurrent loss without current ] Onset: 01-21-2024 01-21-2024 Episodic Other inflammatory condition of skin (15 sources) Seborrheic dermatitis of scalp; Translations: [Seborrheic dermatitis, unspecified] Onset: 11-29-2014 Resolved: 03-04-2022 11-29-2014 Episodic Other nutritional; endocrine; and metabolic disorders (12 sources) Weight gain; Translations: [Abnormal weight gain] Onset: 08-02-2015 08-02-2015 Episodic Other nutritional; endocrine; and metabolic disorders (3 sources) Weight increased; Translations: [Abnormal weight gain] Onset: 08-02-2015 Resolved: 01-21-2024 01-21-2024 Episodic Other and delivery including normal (14 sources) test positive; Translations: [Encounter for test, result positive] Onset: 01-21-2024 02-26-2024 Episodic Comment on above: elects NIPT & Mary r testing Other upper respiratory infections (13 sources) Sore throat symptom; Translations: [Acute pharyngitis, unspecified] Onset: 03-17-2023 Resolved: 01-21-2024 03-17-2023 Episodic Residual codes; unclassified (1 source) 12 weeks gestation of ; Translations: [12 weeks gestation of ] Onset: 04-29-2024 Episodic Residual codes; unclassified (1 source) Less than 8 weeks gestation of ; Translations: [7 weeks gestation of ] Onset: 03-22-2024 Episodic Residual codes; unclassified (1 source) Personal history of other complications of , childbirth and the puerperium; Translations: [History of miscarriage] Onset: 03-11-2024 Episodic Screening and history of mental health and substance abuse codes (20 sources) H/O: depression; Translations: [Personal history of other mental and behavioral disorders] Onset: 03-22-2024 03-22-2024 Episodic Spontaneous (7 sources) Miscarriage; Translations: [Complete or unspecified spontaneous without complication] Onset: 12-04-2023 01-01-2024 Episodic Results Test Name Value Interpretation Reference Range Facility URINE OB DIP B/Oon Glucose Ql (U) Negative Neg mg/dL [facility] Interpretation and review of laboratory results Normal [facility] Protein.monoclonal (U) [Mass/Vol] Negative Neg mg/dL [facility] Examination level ultrasound on 10-14-2024 [facility] Radiology Study observation (narrative) [facility] OB Triage Physician Noteon 0 10-12-2024 OB Triage Physician Note [facility] Medical Records Department [address] [place] [address] OB Triage Physician Note 10/12/24 1319 MR#: [id number] Acct: [id number] Name: ALON SCHMITT Rep #: [id number] : 2000 23 From: Gita Nation MD PCP: DANYEL Matthew Status:DEP CLI Y Location: [facility] HPI - General General Date of Admission: 10/07/24 Date of Service: 10/07/24 Chief Complaint: elevated bp HPI Narrative ALON SCHMITT, is a 23 F who presents with elevated BP Maternal Data Information Final LUIS: 11/08/24 Gestational age: 35 3/7 [facility] Medical History (Updated 10/12/24 @ 13:[address] Gita Nation MD) Incomplete Anxiety Home Medications ???Medication ???Instructions ???Recorded ???Last Taken ???Type multivitamin no.47-iron fum 27 1 cap PO DAILY 11/04/23 10/06/24 H istory mg-folate no.1 1 mg-dha 300 mg capsule (PNV-DHA) aspirin 81 mg tablet,delayed 81 mg PO DAILY 03/15/24 10/06/24 H istory release (Adult Aspirin Regimen) labetalol 100 mg tablet 200 mg PO TID 10/07/24 10/07/24 Hi story nifedipine 30 mg tablet,extended 30 mg PO DAILY 10/07/24 10/06/24 H istory release 24 hr (Procardia XL) Allergy/AdvReac Type Severity Reaction Status Date / Time No Known Allergies Allergy Verified 10/07/24 11:58 Family History Mother Diabetes, Onset Age: 35 Type 2 Father Diabetes, Onset Age: 40 Type 2 Grandfather Heart disease Paternal Grandmother Diabetes Paternal Surgical History (Updated 10/12/24 @ 13:[address] Gita Nation MD) Status post dilation and curettage [place] teeth extracted History of cholecystectomy Social History adopted: No household members: spouse current occupational status: employed current occupation: [employer] current occupational exposures/hazards: No pets and animals: Yes pets and animals: dog(s) history of recent travel: No sexually active: Yes Smoking Status: Never smoker alcohol intake: never substance use type: does not use well-balanced diet: daily or most days caffeine: No eating out: 1-3 times/week during the past year weight has: increased > 10 lbs what type of physical activity do you participate in: walking and other details: yard work frequency: 1-2 times per week duration: 30-45 minutes/day kenyetta/congregation: Denominational seatbelt use: always do you feel safe at home: Yes 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 F/u in office within 1 week or return prn for signs/symptoms of preeclampsia 10/12/24 1323 Date Gita Nation MD Cosigner Signature (if applicable): Date _ CC: DANYEL Singh; Dr. Gita Nation MD Signed Normal [facility] CBC panel Auto (Bld)on 10-11 Erythrocyte distribution width (RBC) [Ratio] 14.7 % 11.5 - 15.0 % [facility] Hematocrit (Bld) [Volume fraction] 40.5 % 36.0 - 46.0 % [facility] Hemoglobin (Bld) [Mass/Vol] 13.6 g/dL 11.5 - 15.5 g/dL [facility] Interpretation and review of laboratory results Abnormal [facility] MCH (RBC) [Entitic mass] 27.4 pg 26.0 - 34.0 pg [facility] MCHC (RBC) [Mass/Vol] 33.6 g/dL 30.5 - 36.0 g/dL [facility] MCV (RBC) [Entitic vol] 81.7 fL 80.0 - 100.0 fL [facility] Nucleated RBC (Bld) [#/Vol] NINF [facility] Platelet mean volume (Bld) [Entitic vol] 10.9 fL 9.0 - 12.7 fL [facility] Platelets (Bld) [#/Vol] 263 10*3/uL [facility] RBC (Bld) [#/Vol] 4.96 10*6/uL 3.90 - 5.2 0 m/uL [facility] WBC (Bld) [#/Vol] 11.47 10*3/uL [facility] Erythrocyte distribution width (RBC) [Ratio] 14.7 % Normal 11.5-15.0 [facility] Comment on above: Order Comment: Speci men Type: BLOOD SPECIMEN Ordering Facility: [facility] Address: [address] [place], [place] [address] Performed By: #### 2 4323-8, 3083-04 #### [facility] CLIA [id number] [address] [place] [address] [place] Hematocrit (Bld) [Volume fraction] 40.5 % Normal 36.0-46.0 [facility] Comment on above: Order Comment: Speci men Type: BLOOD SPECIMEN Ordering Facility: [facility] Address: [address] [place], [place] [address] Performed By: #### 2 4323-8, 3083-04 #### [facility] CLIA [id number] [address] [place] [address] [place] Hemoglobin (Bld) [Mass/Vol] 13.6 g/dL Normal 11.5-15.5 [facility] Comment on above: Order Comment: Speci men Type: BLOOD SPECIMEN Ordering Facility: [facility] Address: [address] [place] [address] Performed By: #### 2 4323-8, 3083-04 #### [facility] CLIA [id number] [address] [place] [address] [place] MCH (RBC) [Entitic mass] 27.4 pg Normal 26.0-34.0 [facility] Comment on above: Order Comment: Speci men Type: BLOOD SPECIMEN Ordering Facility: [facility] Address: [address] [place] [address] Performed By: #### 2 4323-8, 3083-04 #### [facility] CLIA [id number] [address] [place] [address] [place] MCHC (RBC) [Mass/Vol] 33.6 g/dL Normal 30.5-36.0 [facility] Comment on above: Order Comment: Speci men Type: BLOOD SPECIMEN Ordering Facility: [facility] Address: [address] [place] [address] Performed By: #### 2 4323-8, 3083- #### [facility] CLIA [id number] [address] [place] [address] [place] MCV (RBC) [Entitic vol] 81.7 fL Normal 80.0-100.0 [facility] Comment on above: Order Comment: Speci men Type: BLOOD SPECIMEN Ordering Facility: [facility] Address: [address] [place] [address] Performed By: #### 2 4323-8, 3083- #### [facility] CLIA [id number] [address] [place] [address] [place] Nucleated RBC (Bld) [#/Vol] 10*3/uL Normal <0.01 [facility] Comment on above: Order Comment: Speci men Type: BLOOD SPECIMEN Ordering Facility: [facility] Address: [address] [place] [address] Performed By: #### 2 4323-8, 3083-04 #### [facility] CLIA [id number] [address] [place] [address] [place] Platelet mean volume (Bld) [Entitic vol] 10.9 fL Normal 9.0-12.7 [facility] Comment on above: Order Comment: Speci men Type: BLOOD SPECIMEN Ordering Facility: [facility] Address: [address] [place] [address] Performed By: #### 2 4323-8, 3083-04 #### [facility] CLIA [id number] [address] [place] [address] [place] Platelets (Bld) [#/Vol] 263 10*3/uL Normal 150-400 [facility] Comment on above: Order Comment: Speci men Type: BLOOD SPECIMEN Ordering Facility: [facility] Address: [address] [place] [address] Performed By: #### 2 4323-8, 3083-1 #### [facility] CLIA [id number] [address] [place] [address] [place] RBC (Bld) [#/Vol] 4.96 10*6/uL Normal 3.90-5.20 [facility] Comment on above: Order Comment: Speci men Type: BLOOD SPECIMEN Ordering Facility: [facility] Address: [address] [place] [address] Performed By: #### 2 4323-8, 3084-1 #### [facility] CLIA [id number] [address] [place] WBC (Bld) [#/Vol] 11.47 10*3/uL High 3.70-11.00 [facility] Comment on above: Order Comment: Speci men Type: BLOOD SPECIMEN Ordering Facility: [facility] Address: [address] [place] [address] Performed By: #### 2 4323-8, 3084-1 #### [facility] CLIA [id number] [address] [place] Comprehensive metabolic 2000 panelOrdered By: Suri Hughes on 10-11-2024 Albumin [Mass/Vol] 3.6 g/dL Low 3.9 - 4.9 g/dL [facility] ALP [Catalytic activity/Vol] 94 U/L 34 - 123 U/L [facility] ALT [Catalytic activity/Vol] 9 U/L 7 - 38 U/L [facility] Anion gap [Moles/Vol] 9 mmol/L 8 - 15 mmol/L [facility] AST [Catalytic activity/Vol] 11 U/L Low 13 - 35 U/L [facility] Bilirubin [Mass/Vol] 0.2 mg/dL 0.2 - 1 .3 mg/dL [facility] Calcium [Mass/Vol] 9.3 mg/dL 8.5 - 10. 2 mg/dL [facility] Chloride [Moles/Vol] 103 mmol/L 98 - 10 7 mmol/L [facility] CO2 [Moles/Vol] 21 mmol/L Low 22 - 30 mmol/L [facility] Creatinine [Mass/Vol] 0.49 mg/dL Low 0.58 - 0.96 mg/dL [facility] GFR/1.73 sq M.predicted among non-blacks MDRD (S/P/Bld) [Vol rate/Area] 135 mL/min/{1.73_m2} - PINF [facility] Comment on above: Estimated Glomerular Filtration Rate (eGFR) is calculated using the 2020 CKD-EPI creatinine equation. This equation utilizes serum creatinine, sex, and age as parameters. The creatinine assay has traceable calibration to isotope dilution-mass spectrometry. Refer to KDIGO guidelines for clinical interpretation. In patients with unstable renal function, e.g. those with acute kidney injury, the eGFR may not accurately reflect actual GFR. Glucose [Mass/Vol] 103 mg/dL High 74 - 99 mg/dL [facility] Comment on above: The [place] Diabete s Association (ADA) provides guidance for cutoff values for fasting glucose and random glucose. The ADA defines fasting as no caloric intake for at least 8 hours. Fasting plasma glucose results between 100 to 125 mg/dL indicate increased risk for diabetes (prediabetes). Fasting plasma glucose results greater than or equal to 126 mg/dL meet the criteria for diagnosis of diabetes. In the absence of unequivocal hyperglycemia, results should be confirmed by repeat testing. In a patient with classic symptoms of hyperglycemia or hyperglycemic crisis, random plasma glucose results greater than or equal to 200 mg/dL meet the criteria for diagnosis of diabetes. Reference: Standards of Medical Care in Diabetes 2016, [place] Diabetes Association. Diabetes Care. 2016.39(Suppl 1). Interpretation and review of laboratory results Abnormal [facility] Potassium [Moles/Vol] 4.2 mmol/L 3.7 - 5.1 mmol/L [facility] Protein [Mass/Vol] 6.2 g/dL Low 6.3 - 8.0 g/dL [facility] Sodium [Moles/Vol] 133 mmol/L Low 136 - 144 mmol/L [facility] Urea nitrogen [Mass/Vol] 4 mg/dL Low 7 - 21 mg/d L [facility] Comprehensive metabolic 2000 panelon 10-11-2024 Albumin [Mass/Vol] 3.6 g/dL Low 3.9-4.9 [facility] Comment on above: Order Comment: Speci men Type: BLOOD SPECIMEN Ordering Facility: [facility] Address: [address] [place] [address] Performed By: #### 2 4323-8, 3083- #### [facility] CLIA [id number] [address] [place] [address] [place] ALP [Catalytic activity/Vol] 94 U/L Normal 34-123 [facility] Comment on above: Order Comment: Speci men Type: BLOOD SPECIMEN Ordering Facility: [facility] Address: [address] [place] [id number] Performed By: #### 2 4323-8, 3083-04 #### [facility] CLIA [id number] [address] [place] [address] [place] ALT [Catalytic activity/Vol] 9 U/L Normal 7-38 [facility] Comment on above: Order Comment: Speci men Type: BLOOD SPECIMEN Ordering Facility: [facility] Address: [address] [place] [address] Performed By: #### 2 4323-8, 3083-04 #### [facility] CLIA [id number] [address] [place] [address] [place] Anion gap [Moles/Vol] 9 mmol/L Normal 8-15 [facility] Comment on above: Order Comment: Speci men Type: BLOOD SPECIMEN Ordering Facility: [facility] Address: [address] [place] [address] Performed By: #### 2 4323-8, 3083-04 #### [facility] CLIA [id number] [address] [place] [address] [place] AST [Catalytic activity/Vol] 11 U/L Low 13-35 [facility] Comment on above: Order Comment: Speci men Type: BLOOD SPECIMEN Ordering Facility: [facility] Address: [address] [place] [address] Performed By: #### 2 4323-8, 3083-04 #### [facility] CLIA [id number] [address] [place] [address] [place] Bilirubin [Mass/Vol] 0.2 mg/dL Normal 0.2-1.3 [facility] Comment on above: Order Comment: Speci men Type: BLOOD SPECIMEN Ordering Facility: [facility] Address: [address] [place] [address] Performed By: #### 2 4323-8, 3083-04 #### [facility] CLIA [id number] [address] [place] [address] [place] Calcium [Mass/Vol] 9.3 mg/dL Normal 8.5-10.2 [facility] Comment on above: Order Comment: Speci men Type: BLOOD SPECIMEN Ordering Facility: [facility] Address: [address] [place] [address] Performed By: #### 2 4323-8, 3083-04 #### [facility] CLIA [id number] [address] [place] [address] [place] Chloride [Moles/Vol] 103 mmol/L Normal 98-107 [facility] Comment on above: Order Comment: Speci men Type: BLOOD SPECIMEN Ordering Facility: [facility] Address: [address] [place] [address] Performed By: #### 2 4323-8, 3083-04 #### [facility] CLIA [id number] [address] [place] [address] [place] CO2 [Moles/Vol] 21 mmol/L Low 22-30 [facility] Comment on above: Order Comment: Speci men Type: BLOOD SPECIMEN Ordering Facility: [facility] Address: [address] [place] [address] Performed By: #### 2 4323-8, 3083- #### [facility] CLIA [id number] [address] [place] [address] [place] Creatinine [Mass/Vol] 0.49 mg/dL Low 0.58-0.96 [facility] Comment on above: Order Comment: Louie san Type: BLOOD SPECIMEN Ordering Facility: [facility] Address: [address] [place] [address] Performed By: #### 2 4323-8, 3083-1 #### [facility] CLIA [id number] [address] [place] [address] [place] Creatinine and Glomerular filtration rate.predicted panel (S/P/Bld) 135 mL/min/1.73m??? Normal >=60 [facility] Comment on above: Order Comment: Louie san Type: BLOOD SPECIMEN Ordering Facility: [facility] Address: [address] [place] [address] Result Comment: Swati mated Glomerular Filtration Rate (eGFR) is calculated using the 2020 CKD-EPI creatinine equation. This equation utilizes serum creatinine, sex, and age as parameters. The creatinine assay has traceable calibration to isotope dilution-mass spectrometry. Refer to KDIGO guidelines for clinical interpretation. In patients with unstable renal function, e.g. those with acute kidney injury, the eGFR may not accurately reflect actual GFR. Performed By: #### 2 4323-8, 3083-04 #### [facility] CLIA [id number] [address] [place] [address] [place] Glucose [Mass/Vol] 103 mg/dL High 74-99 [facility] Comment on above: Order Comment: Louie san Type: BLOOD SPECIMEN Ordering Facility: [facility] Address: [address] [place] [address] Result Comment: The [place] Diabetes Association (ADA) provides guidance for cutoff values for fasting glucose and random glucose. The ADA defines fasting as no caloric intake for at least 8 hours. Fasting plasma glucose results between 100 to 125 mg/dL indicate increased risk for diabetes (prediabetes). Fasting plasma glucose results greater than or equal to 126 mg/dL meet the criteria for diagnosis of diabetes. In the absence of unequivocal hyperglycemia, results should be confirmed by repeat testing. In a patient with classic symptoms of hyperglycemia or hyperglycemic crisis, random plasma glucose results greater than or equal to 200 mg/dL meet the criteria for diagnosis of diabetes. Reference: Standards of Medical Care in Diabetes 2016, [place] [employer]. Diabetes Care. 2016.39(Suppl 1). Performed By: #### 2 4323-8, 3083-04 #### [facility] CLIA [id number] [address] [place] [address] [place] Potassium [Moles/Vol] 4.2 mmol/L Normal 3.7-5.1 [facility] Comment on above: Order Comment: Speci men Type: BLOOD SPECIMEN Ordering Facility: [facility] Address: [address] [place], [place] [id number] Performed By: #### 2 4323-8, 3083-04 #### [facility] CLIA [id number] [address] [place] [address] [place] Protein [Mass/Vol] 6.2 g/dL Low 6.3-8.0 [facility] Comment on above: Order Comment: Speci men Type: BLOOD SPECIMEN Ordering Facility: [facility] Address: [address] [place] [address] Performed By: #### 2 4323-8, 3083-04 #### [facility] CLIA [id number] [address] [place] [address] [place] Sodium [Moles/Vol] 133 mmol/L Low 136-144 [facility] Comment on above: Order Comment: Speci men Type: BLOOD SPECIMEN Ordering Facility: [facility] Address: [address] [place] [address] Performed By: #### 2 4323-8, 3083-04 #### [facility] CLIA [id number] [address] [place] [address] [place] Urea nitrogen [Mass/Vol] 4 mg/dL Low 7-21 [facility] Comment on above: Order Comment: Speci men Type: BLOOD SPECIMEN Ordering Facility: [facility] Address: [address] [place] [address] Performed By: #### 2 4323-8, 3083-04 #### [id number] [address] [place] [address] [place] Prot/Creat Uron 10-11-2024 Protein/Creatinine (U) [Mass ratio] 0.15 mg/mg High <0.15 [facility] Comment on above: Order Comment: Speci men Type: BLOOD SPECIMEN Ordering Facility: [facility] Address: [address] [place] [address] Result Comment: Adul t Proteinuria Categories: <0.15 mg/mg is considered normal to mildly increased 0.15 - 0.50 mg/mg is considered moderately increased >0.50 mg/mg is considered severely increased KDIGO. (2013). KDIGO 2012 Clinical Practice Guideline for the Evaluation and Management of Chronic Kidney Disease. Official Journal of the International Society of Nephrology, 3(1), 1-150. Performed By: #### 2 4323-8, 3083-04 #### [facility] [id number] [address] [place] [address] [place] Protein/Creatinine (U) [Mass ratio]on 10-11-2024 Creatinine (U) [Mass/Vol] 40.0 mg/dL Normal 20.0-300.0 [facility] Comment on above: Order Comment: Speci men Type: BLOOD SPECIMEN Ordering Facility: [facility] Address: [address] [place] [address] Performed By: #### 2 4323-8, 3083-04 #### [facility] [id number] [address] [place] [address] [place] Protein (U) [Mass/Vol] 6 mg/dL Normal 0-20 [facility] Comment on above: Order Comment: Speci men Type: BLOOD SPECIMEN Ordering Facility: [facility] Address: [address] [place] [address] Performed By: #### 2 4323-8, 3084-1 #### [facility] CLIA [id number] [address] [place] [address] [place] ROUTINE, GROUP B ST REPTOCOCCUS BY PCRon 10-11-2024 ROUTINE, GROUP B STREPTOCOCCUS BY PCR Detected Abnormal [facility] Comment on above: Performed By: #### G BPCR ####[place] [facility] [id number] [place] [id number] [place] URINE OB DIP B/Oon Glucose Ql (U) Negative Neg mg/dL [facility] Interpretation and review of laboratory results Normal [facility] Protein.monoclonal (U) [Mass/Vol] Negative Neg mg/dL [facility] Examination level ultrasound on 10-08-2024 [facility] AST(SGOT)on 10-07-2024 AST [Catalytic activity/Vol] 16 U/L Normal <=31 [facility] Comment on above: Performed By: #### L 700.8000 #### [facility] [address] [place], [address] Alanine Aminotransferas (SGP T)on 10-07-2024 ALT [Catalytic activity/Vol] 13 U/L Normal <=34 [facility] Comment on above: Performed By: #### L 700.8000 #### [facility] [address] [place], [address] CBC-Complete Blood Cnt No Di ffon 10-07-2024 Erythrocyte distribution width (RBC) [Ratio] 14.5 % Normal 11.6-14.6 [facility] Comment on above: Performed By: #### L 100.0500, L501.1105, L501.4405, L501.0900, L501.1400, L501.4100 #### [facility] [address] [place], [address] Hematocrit (Bld) [Volume fraction] 38.7 % Normal 37-47 [facility] Comment on above: Performed By: #### L 100.0500, L501.1105, L501.4405, L501.0900, L501.1400, L501.4100 #### [facility] [address] [place], [address] Hemoglobin (Bld) [Mass/Vol] 13.1 g/dL Normal 12.0-15.0 [facility] Comment on above: Performed By: #### L 100.0500, L501.1105, L501.4405, L501.0900, L501.1400, L501.4100 #### [facility] [address] [place], [address] MCH (RBC) [Entitic mass] 27.8 pg Normal 27.0-32.0 [facility] Comment on above: Performed By: #### L 100.0500, L501.1105, L501.4405, L501.0900, L501.1400, L501.4100 #### [facility] [address] [place], [address] MCHC (RBC) [Mass/Vol] 33.9 g/dL Normal 32-[address] [facility] Comment on above: Performed By: #### L 100.0500, L501.1105, L501.4405, L501.0900, L501.1400, L501.4100 #### [facility] [address] [place], [address] MCV (RBC) [Entitic vol] 82.0 fL Normal 81-99 [facility] Comment on above: Performed By: #### L 100.0500, L501.1105, L501.4405, L501.0900, L501.1400, L501.4100 #### [facility] [address] [place], [address] Platelet mean volume (Bld) [Entitic vol] 11.1 fL Normal 6.2-12.0 [facility] Comment on above: Performed By: #### L 100.0500, L501.1105, L501.4405, L501.0900, L501.1400, L501.4100 #### [facility] [address] [place], [address] Platelets (Bld) [#/Vol] 306 10*3/uL Normal 150-450 [facility] Comment on above: Performed By: #### L 100.0500, L501.1105, L501.4405, L501.0900, L501.1400, L501.4100 #### [facility] [address] [place], [address] RBC (Bld) [#/Vol] 4.72 10*6/uL Normal 4.2-5.4 [facility] Comment on above: Performed By: #### L 100.0500, L501.1105, L501.4405, L501.0900, L501.1400, L501.4100 #### [facility] [address] [place], [address] RDW SD 42.6 fl Normal 35.1-43.9 [facility] Comment on above: Performed By: #### L 100.0500, L501.1105, L501.4405, L501.0900, L501.1400, L501.4100 #### [facility] [address] [place], [address] WBC (Bld) [#/Vol] 11.0 10*3/uL Normal 4.4-11.0 [facility] Comment on above: Performed By: #### L 100.0500, L501.1105, L501.4405, L501.0900, L501.1400, L501.4100 #### [facility] [address] [place], [address] CNPNon 10-07-2024 [facility] Telephone (OBGYWM) KESHIAALON Marivel ([id number]) 89 F Date Time Provider Department 10/07/24 DARRYL ADKINS OBGYWM During your visit today, we recorded the following information about you: Niru Rodas RN 10/07/2024 10:30 AM Signed 35w3d Called and spoke with patient regarding her US appt today. Patient reported that she took her BP today and it's been elevated. Took Procardia at 11pm and first dose of Labetalol at 9am. @ 0950 BP 150/96 @ 1005 BP 162/104 Denies RUQ pain or WEST. States she is having blurry vision. Advised that patient go to [facility] for evaluation and not wait until her appointment today for BP check. States she could be there in 2.5 hours. 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 Stressed the importance and potential seriousness of an elevated BP. Voiced understanding. Will go to [facility][NOTE 3]. Called and notified [facility]NOTE 3[facility] nurse. ROSMERY Ca Sara, MD 10/07/2024 11:42 AM Signed Agree with eval for severe range BP's on [facility]NOTE 3[facility] thanks Allergies As of Date: 10/07/2024 (No Known Allergies) Date Reviewed: 10/04/2024 Reviewed by: Sandra Robledo MA - Fully Assessed Reason for Visit: OB Elevated BP [Other] Prescriptions as of 10/07/2024 - labetalol (TRANDATE) 200 mg tablet Take 1 tablet by mouth three times a day. - NIFEdipine ER (PROCARDIA XL) 30 mg 24 hr tablet Take 1 tablet by mouth once daily. - aspirin 81 mg cap Take by mouth. - VIT 8-WWNX-AYMEW-DHA ORAL Take by mouth. Problem List As Of Date 10/07/2024 Noted Resolved Supervision of high risk in second tr*03/22/2024 Obesity affecting in second trimester*03/22/2024 Anxiety [F41.9] 03/22/2024 History of depression [Z86.59] 03/22/2024 Single umbilical artery affecting management of*06/24/2024 abnormality affecting management of mothe*07/06/2024 Abdominal pain affecting (HCC) [O26.8*08/15/2024 27 weeks gestation of (HCC) [Z3A.27] 08/15/2024 Penile hypospadias [Q54.1] 08/18/2024 Elevated blood pressure reading without diagnos*09/13/2024 Encounter Status:Closed by NIRU RODAS on 10/07/24 Normal [facility] Erythrocyte distribution wid th ratioOrdered By: Darryl Adkins on 10-07-2024 Erythrocyte distribution width (RBC) [Ratio] 14.5 % 11.6-14.6 [facility] Erythrocyte distribution wid th standard deviationOrdered By: Darryl Adkins on 10-07-2024 Erythrocyte distribution width (RBC) [Ratio] 42.6 fl 35.1-43.9 [facility] Examination level ultrasound on 10-07-2024 Radiology Study observation (narrative) [facility] zeian [facility] Glomerular filtration rate ( GFR) estimation/1.73 sq m using serum, plasma, or whole bOrdered By: Darryl Adkins on 10-07-2024 GFR/1.73 sq M.predicted among non-blacks MDRD (S/P/Bld) [Vol rate/Area] 133 mL/min/{1.73_m2} >60 [facility] Comment on above: mL/min/1.73m2 CKD-EP I Creatinine Equation (2020) Hematocrit Auto (Bld) [Volum e fraction]Ordered By: Darryl Adkins on 10-07-2024 Hematocrit (Bld) [Volume fraction] 38.7 % 37-47 [facility] Hemoglobin measurementOrdere d By: Darryl Adkins on 10-07-2024 Hemoglobin (Bld) [Mass/Vol] 13.1 g/dL 12.0-15.0 [facility] - Chemistry and C hemistry - challengeOrdered By: Darryl Adkins on 10-07-2024 AST [Catalytic activity/Vol] 16 U/L <32 [facility] MCV (mean corpuscular volume ) determinationOrdered By: Darryl Adkins on 10-07-2024 MCV (RBC) [Entitic vol] 82.0 fL 81-99 [facility] Mean corpuscular hemoglobin (MCH) determinationOrdered By: Darryl Adkins on 10-07-2024 MCH (RBC) [Entitic mass] 27.8 pg 27.0-32.0 [facility] Mean corpuscular hemoglobin concentration (MCHC) determinationOrdered By: Darryl Adkins on 10-07-2024 MCHC (RBC) [Mass/Vol] 33.9 g/dL 32-[address] [facility] Mean platelet volume determi nationOrdered By: Darryl Adkins on 10-07-2024 Platelet mean volume (Bld) [Entitic vol] 11.1 fL 6.2-12.0 [facility] Platelet countOrdered By: Sa ra Adkins on 10-07-2024 Platelets (Bld) [#/Vol] 306 10*3/uL 150-450 [facility] Protein+Creatinine Ratio,Uri neon 10-07-2024 PROT:CRE RATIO 100 mg/g CRE Normal 0-200 [facility] Comment on above: Performed By: #### L 700.8000 #### [facility] [address] [place], [address] Protein (U) [Mass/Vol] 16.5 mg/dL High 0.0-12.0 [facility] Comment on above: Performed By: #### L 700.8000 #### [facility] [address] [place], [address] UR CREAT 165.00 mg/dL Normal 28.00-217.00 [facility] Comment on above: Performed By: #### L 700.8000 #### [facility] [address] [place], [address] RBC Auto (Bld) [#/Vol]Ordere d By: Darryl Adkins on 10-07-2024 RBC (Bld) [#/Vol] 4.72 10*6/uL 4.2-5.4 [facility] Random urine creatinine alexa urement (mass/volume)Ordered By: Darryl Adkins on 10-07-2024 Creatinine Unsp time (U) [Mass/Vol] 165.00 mg/dL 28.00-217.00 [facility] Serum Creatinine AND GFRon 0 10-07-2024 Creatinine [Mass/Vol] 0.52 mg/dL Low 0.70-1.[address] [facility] Comment on above: Performed By: #### L 700.8000 #### [facility] [address] [place], [address] ECRCL 232.58 ml/min Normal 50-250 [facility] Comment on above: Performed By: #### L 700.8000 #### [facility] [address] [place], [address] GFR/1.73 sq M.predicted among non-blacks MDRD (S/P/Bld) [Vol rate/Area] 133 mL/min/{1.73_m2} Normal >60 [facility] Comment on above: Result Comment: mL/m in/1.73m2 CKD-EPI Creatinine Equation (2020) Performed By: #### L 700.8000 #### [facility] [address] [place], [address] Serum creatinine measurement (mass/volume)Ordered By: Darryl Adkins on 10-07-2024 Creatinine [Mass/Vol] 0.52 mg/dL Low 0.70-1.[address] [facility] Serum or plasma alanine willard otransferase (ALT) measurementOrdered By: Darryl Adkins on 10-07-2024 ALT [Catalytic activity/Vol] 13 U/L <35 [facility] Serum or plasma uric acid me asurement (mass/volume)Ordered By: Darryl Adkins on 10-07-2024 Urate [Mass/Vol] 6.2 mg/dL High 2.6-6.0 [facility] Comment on above: The drugs N-Acetylcy steine and Metamizole may falsely depress this assay. Uric Acidon 10-07-2024 URIC 6.2 mg/dL High 2.6-6.0 [facility] Comment on above: Result Comment: The drugs N-Acetylcysteine and Metamizole may falsely depress this assay. Performed By: #### L 700.8000 #### [facility] [address] [place], [address] Urine protein measurement (m ass/volume)Ordered By: Darryl Adkins on 10-07-2024 Protein (U) [Mass/Vol] 16.5 mg/dL High 0.0-12.0 [facility] Urine protein/creatinine mas s ratioOrdered By: Darryl Adkins on 10-07-2024 Protein/Creatinine (U) [Mass ratio] 100 mg/g CRE 0-200 [facility] White blood cell (WBC) count Ordered By: Darryl Adkins on 10-07-2024 WBC (Bld) [#/Vol] 11.0 10*3/uL 4.4-11.0 [facility] URINE OB DIP B/Oon 5 Glucose Ql (U) Negative Neg mg/dL [facility] Protein.monoclonal (U) [Mass/Vol] Negative Neg mg/dL [facility] URINE OB DIP B/Oon 5 Glucose Ql (U) 500 mg/dL Neg [facility] Interpretation and review of laboratory results Abnormal [facility] Protein.monoclonal (U) [Mass/Vol] Negative Neg mg/dL [facility] Examination level ultrasound on 09-21-2024 [facility] Radiology Study observation (narrative) [facility] OB Triage Physician Noteon 0 09-16-2024 OB Triage Physician Note [facility] Medical Records Department [address] [place] [address] OB Triage Physician Note 09/16/24 1345 MR#: [id number] Acct: [id number] Name: ALON SCHMITT Rep #: [id number] : 2000 23 From: Darryl Adkins DO PCP: DANYEL Matthew Status:DEP CLI Y Location: [facility]OUT HPI - General General Date of Admission: 09/13/24 Date of Service: 09/13/24 Chief Complaint: elevated BP HPI Narrative ALON SCHMITT, is a 23 F who presents from home with elevated BP's at work. No WEST, vision changes, upper abd pain, nausea, vomiting, ctx, vb, lof. Good FM PFSH PFS Medical History Incomplete Anxiety Home Medications ???Medication ???Instructions ???Recorded ???Last Taken ???Type multivitamin no.47-iron fum 27 1 cap PO DAILY 11/04/23 09/13/24 H istory mg-folate no.1 1 mg-dha 300 mg capsule (PNV-DHA) aspirin 81 mg tablet,delayed 81 mg PO DAILY 03/15/24 09/13/24 H istory release (Adult Aspirin Regimen) Allergy/AdvReac Type Severity Reaction Status Date / Time No Known Allergies Allergy Verified 09/13/24 19:41 Family History Mother Diabetes, Onset Age: 35 Type 2 Father Diabetes, Onset Age: 40 Type 2 Grandfather Heart disease Paternal Grandmother Diabetes Paternal Surgical History Status post dilation and curettage [place] teeth extracted History of cholecystectomy Social History adopted: No household members: spouse current occupational status: employed current occupation: [employer] current occupational exposures/hazards: No pets and animals: Yes pets and animals: dog(s) history of recent travel: No sexually active: Yes Smoking Status: Never smoker alcohol intake: never substance use type: does not use well-balanced diet: daily or most days caffeine: No eating out: 1-3 times/week during the past year weight has: increased > 10 lbs what type of physical activity do you participate in: walking and other details: yard work frequency: 1-2 times per week duration: 30-45 minutes/day kenyetta/congregation: Denominational seatbelt use: always do you feel safe at home: Yes 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 History 1 Elective abortions Hx Para 0 Spontaneous abortions 1 Hx # Term Pregnancies Ectopic pregnancies Hx # Pregnancies Multiple births # of living children Physical Exam Const alert and no apparent distress General Appearance: comfortable HEENT normocephalic Resp normal respiratory effort GI soft to palpation, non-tender and non-distended Neuro deep tendon reflexes 2+ bilaterally NST FHR Rate Baby A Baseline: 135 Variability:: Moderate Accelerations:: 15 x 15 Decelerations:: None NST Reactive:: Yes FHR Category:: Category I Assessment Plan (1) 32 weeks gestation of : (2) Elevated blood pressure affecting in third trimester, antepartum: PLAN: BP's in triage mild range. Pre e labs normal. The patient has no symptoms of pre e. Upon chart review patient likely has cHTN. PCP notes from [facility] showed elevated BP's. Multiple visits in [facility] show elevated BP's. BP elevated at 7 week gestation. Discussed with patient likely cHTN so start Procardia 30 mg once daily given severe range BP's at work. Discussed warning signs and symptoms of pre e. Follow up in office in 24-48 hours for BP check and bring home BP cuff. 09/16/24 1349 Date Darryl Adkins DO [facility] Services[facility] Signature (if applicable): Date _ CC: DANYEL Singh; Dr. Darryl Adkins, DO Signed Normal [facility] 09-15-2024 [facility] Telephone (OBGYWM) ALON SCHMITT ([id number]) 89 F Date Time Provider Department 09/15/24 [place] During your visit today, we recorded the following information about you: Niru Rodas RN 09/15/2024 4:05 PM Signed Received breast pump RX from [employer]. To RR to sign. ROSMERY Ca Jennifer, RN 09/17/2024 10:24 AM Signed Faxed.Niru Rodas RN Allergies As of Date: 09/15/2024 (No Known Allergies) Date Reviewed: 09/14/2024 Reviewed by: Sandra Robledo MA - Fully Assessed Reason for Visit: Breast Pump [Other] Prescriptions as of 09/17/2024 - NIFEdipine ER (PROCARDIA XL) 30 mg 24 hr tablet Take 1 tablet by mouth once daily. - pyridoxine HCl, vitamin B6, (VITAMIN B-6 ORAL) Take by mouth. - aspirin 81 mg cap Take by mouth. - VIT 6-OPEJ-RHWCM-DHA ORAL Take by mouth. Problem List As Of Date 09/15/2024 Noted Resolved Supervision of high risk in second tr*03/22/2024 Obesity affecting in second trimester*03/22/2024 Anxiety [F41.9] 03/22/2024 History of depression [Z86.59] 03/22/2024 Single umbilical artery affecting management of*06/24/2024 abnormality affecting management of mothe*07/06/2024 Abdominal pain affecting (HCC) [O26.8*08/15/2024 27 weeks gestation of (HCC) [Z3A.27] 08/15/2024 Penile hypospadias [Q54.1] 08/18/2024 Elevated blood pressure reading without diagnos*09/13/2024 Encounter Status:Closed by NIRU RODAS on 09/17/24 Normal [facility] AST(SGOT)on 09-13-2024 AST [Catalytic activity/Vol] 15 U/L Normal <=31 [facility] Comment on above: Performed By: #### L 700.7092 #### [facility], [address] Alanine Aminotransferas (SGP T)on 09-13-2024 ALT [Catalytic activity/Vol] 14 U/L Normal <=34 [facility] Comment on above: Performed By: #### L 700.8000 #### [facility] [address] [place], [address] CBC-Complete Blood Cnt No Di ffon 09-13-2024 Erythrocyte distribution width (RBC) [Ratio] 14.3 % Normal 11.6-14.6 [facility] Comment on above: Performed By: #### L 700.8000 #### [facility] [address] [place], [address] Hematocrit (Bld) [Volume fraction] 39.0 % Normal 37-47 [facility] Comment on above: Performed By: #### L 700.8000 #### [facility] [address] [place], [address] Hemoglobin (Bld) [Mass/Vol] 13.2 g/dL Normal 12.0-15.0 [facility] Comment on above: Performed By: #### L 700.8000 #### [facility] [address] [place], [address] MCH (RBC) [Entitic mass] 27.7 pg Normal 27.0-32.0 [facility] Comment on above: Performed By: #### L 700.8000 #### [facility] [address] [place], [address] MCHC (RBC) [Mass/Vol] 33.8 g/dL Normal 32-[address] [facility] Comment on above: Performed By: #### L 700.8000 #### [facility] [address] [place], [address] MCV (RBC) [Entitic vol] 81.9 fL Normal 81-99 [facility] Comment on above: Performed By: #### L 700.8000 #### [facility] [address] [place], [address] Platelet mean volume (Bld) [Entitic vol] 10.6 fL Normal 6.2-12.0 [facility] Comment on above: Performed By: #### L 700.8000 #### [facility] [address] [place], [address] Platelets (Bld) [#/Vol] 300 10*3/uL Normal 150-450 [facility] Comment on above: Performed By: #### L 700.8000 #### [facility] [address] [place], [address] RBC (Bld) [#/Vol] 4.76 10*6/uL Normal 4.2-5.4 [facility] Comment on above: Performed By: #### L 700.8000 #### [facility] [address] [place], [address] RDW SD 41.8 fl Normal 35.1-43.9 [facility] Comment on above: Performed By: #### L 700.8000 #### [facility] [address] [place], [address] WBC (Bld) [#/Vol] 12.0 10*3/uL High 4.4-11.0 [facility] Comment on above: Performed By: #### L 700.8000 #### [facility] [address] [place], [address] [facility] (OBGYWM) ALON SCHMITT ([id number]) 89 F Date Time Provider Department 09/13/24 DARRYL ADKINS During your visit today, we recorded the following information about you: Darryl Adkins MD 09/13/2024 9:45 PM Signed Patient was seen on [facility] for elevated BP's. No symptoms of pre e and labs were WNL. Chart reviewed and consistent with cHTN. Patient states when she is seen by her PCP her BP is usually elevated, but it does come down. Recently in the when she is working her BP is 160's/100's at work. Discussed cHTN and Procardia started. Needs BP check in 24-48 hours in the office thanks Niru Rodas RN 09/14/2024 9:43 AM Signed See [employer] message. Patient coming in today for BP check. Niru Rodas RN Allergies As of Date: 09/13/2024 (No Known Allergies) Date Reviewed: 09/10/2024 Reviewed by: Niru Harrington MD - Fully Assessed Reason for Visit: Orders [681] Order(s):NIFEdipine ER (PROCARDIA XL) 30 mg 24 hr tabletTake 1 tablet by mouth once daily.Disp: 90 tabletRfl: 3 Prescriptions as of 09/14/2024 - NIFEdipine ER (PROCARDIA XL) 30 mg 24 hr tablet Take 1 tablet by mouth once daily. - pyridoxine HCl, vitamin B6, (VITAMIN B-6 ORAL) Take by mouth. - aspirin 81 mg cap Take by mouth. - VIT 3-NUWR-VXOYB-DHA ORAL Take by mouth. Problem List As Of Date 09/13/2024 Noted Resolved Supervision of high risk in second tr*03/22/2024 Obesity affecting in second trimester*03/22/2024 Anxiety [F41.9] 03/22/2024 History of depression [Z86.59] 03/22/2024 Single umbilical artery affecting management of*06/24/2024 abnormality affecting management of mothe*07/06/2024 Abdominal pain affecting (HCC) [O26.8*08/15/2024 27 weeks gestation of (HCC) [Z3A.27] 08/15/2024 Penile hypospadias [Q54.1] 08/18/2024 Elevated blood pressure reading without diagnos*09/13/2024 Prescriptions ordered this encounter Disp Refills Start End NIFEDIPINE ER 30 MG TABLET,EXTENDED * 90 t* 3 09/13/2024 Route: ORAL Sig: Take 1 tablet by mouth once daily. Encounter Status:Closed by DARRYL ADKINS on 09/13/24 Normal [facility] Erythrocyte distribution wid th ratioOrdered By: Darryl Adkins on 09-13-2024 Erythrocyte distribution width (RBC) [Ratio] 14.3 % 11.6-14.6 [facility] Erythrocyte distribution wid th standard deviationOrdered By: Darryl Adkins on 09-13-2024 Erythrocyte distribution width (RBC) [Ratio] 41.8 fl 35.1-43.9 [facility] Glomerular filtration rate ( GFR) estimation/1.73 sq m using serum, plasma, or whole bOrdered By: Darryl Adkins on 09-13-2024 GFR/1.73 sq M.predicted among non-blacks MDRD (S/P/Bld) [Vol rate/Area] 139 mL/min/{1.73_m2} >60 [facility] Comment on above: mL/min/1.73m2 CKD-EP I Creatinine Equation (2020) Hematocrit Auto (Bld) [Volum e fraction]Ordered By: Darryl Adkins on 09-13-2024 Hematocrit (Bld) [Volume fraction] 39.0 % 37-47 [facility] Hemoglobin measurementOrdere d By: Darryl Adkins on 09-13-2024 Hemoglobin (Bld) [Mass/Vol] 13.2 g/dL 12.0-15.0 [facility] Laboratory - Chemistry and C hemistry - challengeOrdered By: Darryl Adkins on 09-13-2024 AST [Catalytic activity/Vol] 15 U/L <32 [facility] MCV (mean corpuscular volume ) determinationOrdered By: Darryl Adkins on 09-13-2024 MCV (RBC) [Entitic vol] 81.9 fL 81-99 [facility] Mean corpuscular hemoglobin (MCH) determinationOrdered By: Darryl Adkins on 09-13-2024 MCH (RBC) [Entitic mass] 27.7 pg 27.0-32.0 [facility] Mean corpuscular hemoglobin concentration (MCHC) determinationOrdered By: Darryl Adkins on 09-13-2024 MCHC (RBC) [Mass/Vol] 33.8 g/dL 32-[address] [facility] Mean platelet volume determi nationOrdered By: Darryl Adkins on 09-13-2024 Platelet mean volume (Bld) [Entitic vol] 10.6 fL 6.2-12.0 [facility] Platelet countOrdered By: Sa ra Adkins on 09-13-2024 Platelets (Bld) [#/Vol] 300 10*3/uL 150-450 [facility] Protein+Creatinine Ratio,Uri neon 09-13-2024 PROT:CRE RATIO 107 mg/g CRE Normal 0-200 [facility] Comment on above: Performed By: #### L 700.8000 #### [facility] [address] [place], [address] Protein (U) [Mass/Vol] 10.2 mg/dL Normal 0.0-12.0 [facility] Comment on above: Performed By: #### L 700.8000 #### [facility] [address] [place], [address] UR CREAT 95.40 mg/dL Normal 28.00-217.00 [facility] Comment on above: Performed By: #### L 700.8000 #### [facility] [address] [place], [address] RBC Auto (Bld) [#/Vol]Ordere d By: Darryl Adkins on 09-13-2024 RBC (Bld) [#/Vol] 4.76 10*6/uL 4.2-5.4 [facility] Random urine creatinine alexa urement (mass/volume)Ordered By: Darryl Adkins on 09-13-2024 Creatinine Unsp time (U) [Mass/Vol] 95.40 mg/dL 28.00-217.00 [facility] Serum Creatinine AND GFRon 0 09-13-2024 Creatinine [Mass/Vol] 0.43 mg/dL Low 0.70-1.[address] [facility] Comment on above: Performed By: #### L 700.8000 #### [facility] [address] [place], [place], [address] GFR/1.73 sq M.predicted among non-blacks MDRD (S/P/Bld) [Vol rate/Area] 139 mL/min/{1.73_m2} Normal >60 [facility] Comment on above: Result Comment: mL/m in/1.73m2 CKD-EPI Creatinine Equation (2020) Performed By: #### L 700.8000 #### [facility] [address] [place], [address] Serum creatinine measurement (mass/volume)Ordered By: Darryl Adkins on 09-13-2024 Creatinine [Mass/Vol] 0.43 mg/dL Low 0.70-1.[address] [facility] Serum or plasma alanine willard otransferase (ALT) measurementOrdered By: Darryl Adkins on 09-13-2024 ALT [Catalytic activity/Vol] 14 U/L <35 [facility] Serum or plasma uric acid me asurement (mass/volume)Ordered By: Darryl Adkins on 09-13-2024 Urate [Mass/Vol] 5.0 mg/dL 2.6-6.0 [facility] Comment on above: The drugs N-Acetylcy steine and Metamizole may falsely depress this assay. Uric Acidon 09-13-2024 URIC 5.0 mg/dL Normal 2.6-6.0 [facility] Comment on above: Result Comment: The drugs N-Acetylcysteine and Metamizole may falsely depress this assay. Performed By: #### L 700.8000, B882-1, L100.0100 #### [facility] [address] [place], [place], [address] Urine protein measurement (m ass/volume)Ordered By: Darryl Adkins on 09-13-2024 Protein (U) [Mass/Vol] 10.2 mg/dL 0.0-12.0 [facility] Urine protein/creatinine mas s ratioOrdered By: Darryl Adkins on 09-13-2024 Protein/Creatinine (U) [Mass ratio] 107 mg/g CRE 0-200 [facility] White blood cell (WBC) count Ordered By: Darryl Adkins on 09-13-2024 WBC (Bld) [#/Vol] 12.0 10*3/uL High 4.4-11.0 [facility] Examination level ultrasound on 08-27-2024 [facility] Radiology Study observation (narrative) Shilo moy [facility] CNPDhara 08-26-2024 CNPN Telephone (OBGYWM) ALON SCHMITT ([id number]) 89 F Date Time Provider Department 08/26/24 GITA NATION OBGYWM During your visit today, we recorded the following information about you: Belen Crenshaw RN 08/26/2024 4:47 PM Signed Pt scheduled 08/27/24 for Growth US at 8:30am and OB appt at 9am. Please file order and will link to appt. Belen Crenshaw RN Allergies As of Date: 08/26/2024 (No Known Allergies) Date Reviewed: 08/17/2024 Reviewed by: Rachel Whatley MD - Fully Assessed Primary Visit Diagnosis:Obesity during in third trimester (HCC) [O99.213] Order(s):OBSTETRIC ULTRASOUND [facility] [8362370] Order #: [id number]: 1 FUTURE Prescriptions as of 08/27/2024 - pyridoxine HCl, vitamin B6, (VITAMIN B-6 ORAL) Take by mouth. - aspirin 81 mg cap Take by mouth. - VIT 2-VUHR-NGLFW-DHA ORAL Take by mouth. Problem List As Of Date 08/26/2024 Noted Resolved Supervision of high risk in second tr*03/22/2024 Obesity affecting in second trimester*03/22/2024 Anxiety [F41.9] 03/22/2024 History of depression [Z86.59] 03/22/2024 Single umbilical artery affecting management of*06/24/2024 abnormality affecting management of mothe*07/06/2024 Abdominal pain affecting (HCC) [O26.8*08/15/2024 27 weeks gestation of (HCC) [Z3A.27] 08/15/2024 Penile hypospadias [Q54.1] 08/18/2024 Encounter Status:Closed by BELEN CRENSHAW on 08/27/24 Normal [facility] Examination level ultrasound on 08-18-2024 Indication Suspected anomalies, Maternal obesity, BMI >45, single umbilical artery Impression - Single, live, intrauterine . - The biometry is consistent with the assigned gestational dating. - Amniotic fluid volume is normal amount with an MVP of 7 cm and FAITH of 18.2 cm. - The placenta is anterior, fundal. - No malformations visualized on a limited survey as detailed below. The penis appears ventrally bent with two parallel hyperechoic lines adjacent to the shaft, consistent with lateral preputial folds. These findings are suggestive of second-degree hypospadias. The penis is subjectively small, likely due to its ventral positioning. The scrotum appears normal, with both testes visualized within the scrotal sac. The kidneys are normal in size and echogenicity, with no evidence of hydronephrosis. The bladder is normal in appearance and appropriately filled. Evaluation of the anal region was limited, and no comment can be made regarding its appearance. Low risk NIPT. Declined amniocentesis. Recommendations Pediatric urology consult clinical evaluation and management Follow up growth scans in 6-8 weeks Maternal Assessment Height 163 cm Height (ft) 5 ft Height (in) 4 in Physical Exam Initial weight (lb) 281 lb Initial BMI 48.23 kg/m Growth Overview Exam date GA BPD (mm) HC (mm) AC (mm) FL (mm) HL (mm) EFW (g) 06/24/2024 20w 3d 46.1 29% 176.3 40% 165.3 80% 33.4 66% 31.6 55% 386 70% 07/27/2024 25w 1d 60.7 26% 227.6 35% 205.7 41% 43.9 42% 741 28% Method Transabdominal ultrasound examination Stevens . Number of fetuses: 1 Dating LMP on: 02/02/2024 GA by LMP 27 w + 1 d LUIS by LMP: 11/08/2024 GA by prior assessment 27 w + 1 d LUIS by prior assessment: 11/08/2024 Assigned: based on stated LUIS, selected on 07/27/2024 Assigned GA 27 w + 1 d Assigned LUIS: 11/08/2024 General Evaluation Cardiac activity present. FHR 144 bpm. movements: present. Presentation: cephalic Placenta: Placental site: anterior, fundal Umbilical cord: Cord vessels: 2 vessel cord. Insertion site: normal insertion Amniotic fluid: Amount of AF: normal amount. MVP 7.0 cm. FAITH 18.2 cm. Q1 5.4 cm, Q2 7.0 cm, Q3 3.2 cm, Q4 2.6 cm Anatomy Heart / Thorax Diaphragm: normal Stomach: normal Kidneys: normal Bladder: normal Genitals: abnormal Abdomen Genitals: hypospadia sex: male Wants to know sex: yes Performed By: Cinthya Dey RDMS Read By: Luz Elena Laguna M.D. MATERNAL MEDICINE [facility] Arnie 08-17-2024 CONNIE Telephone (SANDRA) ALON SCHMITT ([id number]) 89 F Date Time Provider Department 08/17/24 FABIENNE DEL CID During your visit today, we recorded the following information about you: Fabienne Del Cid LGC 08/19/2024 1:59 PM Addendum Called Mrs. Schmitt to discuss the results of her standard 14 condition carrier screening. Disclosed that Mrs. Schmitt was not identified as a carrier of any of the conditions on this panel, therefore there is a much less than 1% chance for any of the conditions on this panel in her current or future pregnancies. At this time, her 's carrier screening remains pending. The results will be returned when available. Mrs. Schmitt indicated understanding and appreciated the information. Carrier screening report was released following our conversation. Encouraged Mrs. Schmitt to reach me via [employer] or at my direct office line ([phone]) if she has any questions or concerns in the future. Fabienne Del Cid MS, [facility] [place], Certified Genetic Counselor Nehemias FabienneRACHEL herron 08/19/2024 2:08 PM Signed Called Mrs. Schmitt to discuss the results of her 's standard carrier screening. Disclosed that Mr. Schmitt was not identified as a carrier of any of the conditions on this panel, therefore there is a much less than 1% chance for any of the conditions on this panel in Mrs. Schmitt's current or future pregnancies. Mrs. Schmitt indicated understanding and appreciated the information. Confirmed that Mrs. Schmitt remains interested in cordblood collection at the time of delivery if they are interested in pursuing genetic testing. Encouraged Mrs. Schmitt to reach me via [employer] or at my direct office line ([phone]) if she has any questions or concerns in the future. Fabienne Del Cid MS, [facility] [place], Certified Genetic Counselor Allergies As of Date: 08/17/2024 (No Known Allergies) Date Reviewed: 08/17/2024 Reviewed by: Rachel Whatley MD - Fully Assessed Reason for Visit: carrier screening results [Other] Prescriptions as of 08/19/2024 - pyridoxine HCl, vitamin B6, (VITAMIN B-6 ORAL) Take by mouth. - aspirin 81 mg cap Take by mouth. - VIT 3-IXPX-OWQKD-DHA ORAL Take by mouth. Problem List As Of Date 08/17/2024 Noted Resolved Supervision of high risk in second tr*03/22/2024 Obesity affecting in second trimester*03/22/2024 Anxiety [F41.9] 03/22/2024 History of depression [Z86.59] 03/22/2024 Single umbilical artery affecting management of*06/24/2024 abnormality affecting management of mothe*07/06/2024 Abdominal pain affecting (HCC) [O26.8*08/15/2024 27 weeks gestation of (HCC) [Z3A.27] 08/15/2024 Encounter Status:Closed by FABIENNE DEL CID on 08/17/24 Normal [facility] Examination level ultrasound on 08-10-2024 Radiology Study observation (narrative) Shilo moy [facility] Arnie 08-05-2024 CNPN Telephone (OBGYWM) ALON SCHMITT ([id number]) 89 F Date Time Provider Department 08/05/24 DARRYL ADKINS OBGYWM During your visit today, we recorded the following information about you: Belen Crenshaw RN 08/05/2024 4:14 PM Signed [facility]: Appt with Fabienne Del Cid [facility] on 08/03/24 added to record. Belen Crenshaw RN Allergies As of Date: 08/05/2024 (No Known Allergies) Date Reviewed: 08/03/2024 Reviewed by: Sandra Robledo MA - Fully Assessed Prescriptions as of 08/05/2024 - doxylamine succinate (UNISOM, DOXYLAMINE, ORAL) Take by mouth. - pyridoxine HCl, vitamin B6, (VITAMIN B-6 ORAL) Take by mouth. - ondansetron (ZOFRAN) 4 mg tablet Take 1 tablet by mouth every 8 hours as needed for nausea/vomiting. - aspirin 81 mg cap Take by mouth. - VIT 7-BKWU-TVHQZ-DHA ORAL Take by mouth. Problem List As Of Date 08/05/2024 Noted Resolved Supervision of high risk in second tr*03/22/2024 Obesity affecting in second trimester*03/22/2024 Anxiety [F41.9] 03/22/2024 History of depression [Z86.59] 03/22/2024 Single umbilical artery affecting management of*06/24/2024 abnormality affecting management of mothe*07/06/2024 Encounter Status:Closed by BELEN CRENSHAW on 08/05/24 Normal [facility] CARRIER SCREEN, STANDARDon 0 08-03-2024 CARRIER SCREEN RESULTS View results in Scanned Documents link when available. Normal [facility] Comment on above: Order Comment: Speci men Type: BLOOD SPECIMENOrdering Facility: [facility] Address: [address] [place] [address] Performed By: #### C RRSCN ####[facility] [id number] [place] [address] GESTATIONAL GLUCOSE SCREEN, 1-HOUR, 50 GRAM, NON-FASTINGon 08-03-2024 Glucose [Mass/Vol] 129 mg/dL Normal 74-134 [facility] Comment on above: Order Comment: Speci men Type: BLOOD SPECIMENOrdering Facility: [facility] Address: [address] [place] [address] Result Comment: er [facility] Congress of Obstetricians and Gynecologists (Rbui/Liss) guidelines state a gestational diabetes mellitus positive screen is made, in women not previously diagnosed with overt diabetes, when the 1 hr plasma glucose level is equal to or above 140 mg/dL. The [facility] recommends a 135 mg/dL cutoff. Performed By: #### G LTGST ####[facility] [id number] [place] [address] [place] Prot/Creat Uron 08-03-2024 Protein/Creatinine (U) [Mass ratio] 0.06 mg/mg Normal <0.15 [facility] Comment on above: Order Comment: Speci men Type: URINE SPECIMENOrdering Facility: [facility] Address: [address] [place] [address] Result Comment: Adul t Proteinuria Categories: <0.15 mg/mg is considered normal to mildly increased 0.15 - 0.50 mg/mg is considered moderately increased >0.50 mg/mg is considered severely increased KDIGO. (2013). KDIGO 2012 Clinical Practice Guideline for the Evaluation and Management of Chronic Kidney Disease. Official Journal of the International Society of Nephrology, 3(1), 1-150. Performed By: #### 2 890-2 ####[place] [facility] [id number] [place] [id number] [place] Protein/Creatinine (U) [Mass ratio]on 08-03-2024 Creatinine (U) [Mass/Vol] 144.4 mg/dL Normal 20.0-300.0 [facility] Comment on above: Order Comment: Speci men Type: URINE SPECIMENOrdering Facility: [facility] Address: [address] [place] [address] Performed By: #### 2 890-2 ####[facility] [id number] [place] [id number] [place] Protein (U) [Mass/Vol] 9 mg/dL Normal 0-20 [facility] Comment on above: Order Comment: Speci men Type: URINE SPECIMENOrdering Facility: [facility] Address: [address] [place] [address] Performed By: #### 2 890-2 ####[facility] [id number] [place] [id number] [place] CNPDhara 07-30-2024 CONNIE Telephone (OZGY) ALON SCHMITT ([id number]) 89 F Date Time Provider Department 07/30/24 DEB RICHARD During your visit today, we recorded the following information about you: Belen Crenshaw, RN 07/30/2024 1:32 PM Signed 25w4d Woke up around 6:40am this morning. States she has been vomiting since she woke up and has been unable to keep liquids/anything down AND c/o mid abdominal upset stomach. Diarrhea. Active movement. Pt states she has taken Vitamin B6, Unisom AND Nichelle and worked for her in 1st trimester. Pt also states she has zofran at home and it has worked for her. States has not taken either. Advised Pt to take a zofran and try drinking small sips of water or gatorade/liquid IV. Advised Pt that if she is unable to keep food/liquids down for >24 hours then she needs to call office/go to ER Pt is calling for anemia reflex panel results stating [place] [facility] [place] read as abnormal. From note on JG 06/24/24, states Pt needs NSTs q4 weeks. However, no order placed. Pt is seeing MFM for Single umbilical artery. Assisted Pt with getting another US scheduled in office with OB appt following. Does Pt need NSTs [id number]? Please advise. ROSMERY Webster Courtney, APRN.CLAIRE 07/30/2024 1:52 PM Signed Patient needs growth US q 4 weeks starting at 32 weeks gestation for BMI. She will need weekly NST's at that time as well. The labs have been reviewed and are within normal ranges during . Deb Richard APRN.Belen Woodson RN 07/30/2024 2:39 PM Signed Pt notified that NSTs will begin at 32 weeks per MFM report on 06/24/24 AND US will be completed q4 weeks per M report on 07/27/24 d/t single umbilical artery. Pt denies additional questions/concerns at this time. Pt has upcoming appt in office on 08/03/24. Belen Crenshaw RN Allergies As of Date: 07/30/2024 (No Known Allergies) Date Reviewed: 07/27/2024 Reviewed by: Alyssa Donnelly MA - Fully Assessed Prescriptions as of 07/30/2024 - doxylamine succinate (UNISOM, DOXYLAMINE, ORAL) Take by mouth. - pyridoxine HCl, vitamin B6, (VITAMIN B-6 ORAL) Take by mouth. - ondansetron (ZOFRAN) 4 mg tablet Take 1 tablet by mouth every 8 hours as needed for nausea/vomiting. - aspirin 81 mg cap Take by mouth. - VIT 4-ORDB-KDDOM-DHA ORAL Take by mouth. Problem List As Of Date 07/30/2024 Noted Resolved Supervision of high risk in second tr*03/22/2024 Obesity affecting in second trimester*03/22/2024 Anxiety [F41.9] 03/22/2024 History of depression [Z86.59] 03/22/2024 Single umbilical artery affecting management of*06/24/2024 abnormality affecting management of mothe*07/06/2024 Encounter Status:Closed by DEB RICHARD on 07/30/24 [facility] Arnie 07-29-2024 CNPN Telephone ([facility]) ALON SCHMITT ([id number]) 89 Date Time Provider Department 07/29/24 NEMO THOMPSON [facility] During your visit today, we recorded the following information about you: Nemo Thompson, RN 07/29/2024 11:20 AM Signed Call to Alon at the request of Dr. Ricci to introduce myself as customer care professional and the Care Center. I let Alon know I was calling in regards to her recent ultrasound she had with Dr. Ricci. Alon was able to tell me in her own words that at her last ultrasound a single umbilical artery was noted and she had a echocardiogram that was normal. At this current ultrasound there was concern for hypospadias, stating they think the opening of the urethral is on the underside of the penis. We discussed having her come to [facility] for follow up Ultrasound and Consult with the Care Center. She is agreeable to this plan and will be seen on 08/10/24. She is scheduled for genetic consult on 08/03/24 virtually. Alon is agreeable to have me MyChart her the building and address to her appointment for the ultrasound along with my contact information. We discussed the other services offered in the Care Center including support, education, coordination of care and appointment scheduling. Patient's questions answered to the best of my ability. Nemo Thompson RN Allergies As of Date: 07/29/2024 (No Known Allergies) Date Reviewed: 07/27/2024 Reviewed by: Alyssa Donnelly MA - Fully Assessed Reason for Visit: Care Plan [3632] Cmt: Introduction Prescriptions as of 07/29/2024 - doxylamine succinate (UNISOM, DOXYLAMINE, ORAL) Take by mouth. - pyridoxine HCl, vitamin B6, (VITAMIN B-6 ORAL) Take by mouth. - ondansetron (ZOFRAN) 4 mg tablet Take 1 tablet by mouth every 8 hours as needed for nausea/vomiting. - aspirin 81 mg cap Take by mouth. - VIT 1-EKAZ-MIWBO-DHA ORAL Take by mouth. Problem List As Of Date 07/29/2024 Noted Resolved Supervision of high risk in second tr*03/22/2024 Obesity affecting in second trimester*03/22/2024 Anxiety [F41.9] 03/22/2024 History of depression [Z86.59] 03/22/2024 Single umbilical artery affecting management of*06/24/2024 abnormality affecting management of mothe*07/06/2024 Encounter Status:Closed by NEMO THOMPSON on 07/29/24 Normal [facility] CBC W Auto Differential pane l (Bld)on 07-27-2024 Basophils (Bld) [#/Vol] 0.04 10*3/uL Normal <0.11 [facility] Comment on above: Order Comment: Speci men Type: BLOOD SPECIMENOrdering Facility: [facility] Address: [address] [place] [address] Performed By: #### 5 7021-8 ####[facility] [id number] [place] [id number] [place] Basophils/100 WBC (Bld) 0.3 % Normal C [facility] Comment on above: Order Comment: Speci men Type: BLOOD SPECIMENOrdering Facility: [facility] Address: [address] [place] [address] Performed By: #### 5 7021-8 ####[facility] [id number] [place] [address] [place] Differential cell count method Nom (Bld) Auto Normal [facility] Comment on above: Order Comment: Speci men Type: BLOOD SPECIMENOrdering Facility: [facility] Address: [address] [place] [address] Performed By: #### 5 7021-8 ####[facility] [id number] [place] [address] [place] Eosinophils (Bld) [#/Vol] 0.09 10*3/uL Normal <0.46 [facility] [facility] Comment on above: Order Comment: Speci men Type: BLOOD SPECIMENOrdering Facility: [facility] Address: [address] [place] [address] Performed By: #### 5 7021-8 ####[facility] [id number] [place] [address] [place] Eosinophils/100 WBC (Bld) 0.7 % Normal [facility] Comment on above: Order Comment: Speci men Type: BLOOD SPECIMENOrdering Facility: [facility] Address: [address] [place] [address] Performed By: #### 5 7021-8 ####[facility] [id number] [place] [address] [place] Erythrocyte distribution width (RBC) [Ratio] 14.2 % Normal 11.5-15.0 [facility] Comment on above: Order Comment: Speci men Type: BLOOD SPECIMENOrdering Facility: [facility] Address: [address] [place] [address] Performed By: #### 5 7021-8 ####[facility]ITALNCA [id number] [place] [address] [place] Hematocrit (Bld) [Volume fraction] 40.3 % Normal 36.0-46.0 [facility] Comment on above: Order Comment: Speci men Type: BLOOD SPECIMENOrdering Facility: [facility] Address: [address] [place] [address] Performed By: #### 5 7021-8 ####[facility]ITALNCM[facility] [id number] [place] [address] [place] Hemoglobin (Bld) [Mass/Vol] 13.8 g/dL Normal 11.5-15.5 [facility] Comment on above: Order Comment: Speci men Type: BLOOD SPECIMENOrdering Facility: [facility] Address: [address] [place] [address] Performed By: #### 5 7021-8 ####[facility]ITALNCM[facility] [id number] [place] [address] [place] Immature granulocytes (Bld) [#/Vol] 0.17 10*3/uL High <0.10 [facility] Comment on above: Order Comment: Speci men Type: BLOOD SPECIMENOrdering Facility: [facility] Address: [address] [place] [address] Performed By: #### 5 7021-8 ####[facility]ITALNCLIA [id number] [place] [address] [place] Immature granulocytes/100 WBC (Bld) 1.3 % Normal [facility] Comment on above: Order Comment: Speci men Type: BLOOD SPECIMENOrdering Facility: [facility] Address: [address] [place] [address] Performed By: #### 5 7021-8 ####[facility]ITALNCLIA [id number] [place] [address] [place] Lymphocytes (Bld) [#/Vol] 1.55 10*3/uL Normal 1.00-4.00 [facility] Comment on above: Order Comment: Speci men Type: BLOOD SPECIMENOrdering Facility: [facility] Address: [address] [place] [address] Performed By: #### 5 7021-8 ####[facility] JIMROBERTO [id number] [place] [address] [place] Lymphocytes/100 WBC (Bld) 12.2 % Normal [facility] Comment on above: Order Comment: Speci men Type: BLOOD SPECIMENOrdering Facility: [facility] Address: [address] [place] [address] Performed By: #### 5 7021-8 ####[facility] HOSPITALNCTHERESA [id number] [place] [address] [place] MCH (RBC) [Entitic mass] 27.9 pg Normal 26.0-34.0 [facility] Comment on above: Order Comment: Speci men Type: BLOOD SPECIMENOrdering Facility: [facility] Address: [address] [place] [address] Performed By: #### 5 7021-8 ####[facility] HOSPITALNCTim [id number] [place] [address] [place] MCHC (RBC) [Mass/Vol] 34.2 g/dL Normal 30.5-36.0 Darc[facility] Comment on above: Order Comment: Speci men Type: BLOOD SPECIMENOrdering Facility: [facility] Address: [address] [place] [address] Performed By: #### 5 7021-8 ####[facility] HOSPITALNCLI [id number] [place] [address] [place] MCV (RBC) [Entitic vol] 81.6 fL Normal 80.0-100.0 C [facility] Comment on above: Order Comment: Speci men Type: BLOOD SPECIMENOrdering Facility: [facility] Address: [address] [place] [address] Performed By: #### 5 7021-8 ####[facility] MILLWNCLIA [id number] [place] [address] [place] Monocytes (Bld) [#/Vol] 0.60 10*3/uL Normal <0.87 [facility] Comment on above: Order Comment: Speci men Type: BLOOD SPECIMENOrdering Facility: [facility] Address: [address] [place] [address] Performed By: #### 5 7021-8 ####[facility] CENTERLIA [id number] [place] [address] [place] Monocytes/100 WBC (Bld) 4.7 % Normal [facility] Comment on above: Order Comment: Speci men Type: BLOOD SPECIMENOrdering Facility: [facility] Address: [address] [place] [address] Performed By: #### 5 7021-8 ####[facility] CENTERLIA [id number] [place] [address] [place] Neutrophils (Bld) [#/Vol] 10.26 10*3/uL High 1.45-7.50 [facility] Comment on above: Order Comment: Speci men Type: BLOOD SPECIMENOrdering Facility: [facility] Address: [address] [place] [address] Performed By: #### 5 7021-8 ####[facility] CENTERLIA [id number] [place] [address] [place] Neutrophils/100 WBC (Bld) 80.8 % Normal [facility] Comment on above: Order Comment: Speci men Type: BLOOD SPECIMENOrdering Facility: [facility] Address: [address] [place] [address] Performed By: #### 5 7021-8 ####[facility] CENTERLIA [id number] [place] [address] [place] Nucleated RBC (Bld) [#/Vol] 10*3/uL Normal <0.01 [facility] Comment on above: Order Comment: Speci men Type: BLOOD SPECIMENOrdering Facility: [facility] Address: [address] [place] [address] Performed By: #### 5 7021-8 ####[facility] [id number] [place] [address] [place] Nucleated RBC/100 WBC (Bld) [Ratio] 0.0 /100 WBC Normal [facility] Comment on above: Order Comment: Speci men Type: BLOOD SPECIMENOrdering Facility: [facility] Address: [address] [place] [address] Performed By: #### 5 7021-8 ####[facility] [id number] [place] [address] [place] Platelet mean volume (Bld) [Entitic vol] 10.3 fL Normal 9.0-12.7 [facility] Comment on above: Order Comment: Speci men Type: BLOOD SPECIMENOrdering Facility: [facility] Address: [address] [place] [address] Performed By: #### 5 7021-8 ####[facility] [id number] [place] [address] [place] Platelets (Bld) [#/Vol] 278 10*3/uL Normal 150-400 [facility] Comment on above: Order Comment: Speci men Type: BLOOD SPECIMENOrdering Facility: [facility] Address: [address] [place] [address] Performed By: #### 5 7021-8 ####[facility] HOSPITALA [id number] [place] [address] [place] RBC (Bld) [#/Vol] 4.94 10*6/uL Normal 3.90-5.20 [facility] Comment on above: Order Comment: Speci men Type: BLOOD SPECIMENOrdering Facility: [facility] Address: [place] [place] [address] Performed By: #### 5 7021-8 ####[facility] JOHN FERNANDEZANDERSONNCLITim [id number] [address] OF [facility] WBC (Bld) [#/Vol] 12.71 10*3/uL High 3.70-11.00 [facility] Comment on above: Order Comment: Speci men Type: BLOOD SPECIMENOrdering Facility: [facility] Address: [address] [place] [address] Performed By: #### 5 7021-8 ####[facility] HOSPITALNCTim [id number] [address] Comprehensive metabolic 2000 panelOrdered By: Suri Hughes on 07-27-2024 Albumin [Mass/Vol] 4 g/dL 3.9 - 4.9 g/dL [facility] ALP [Catalytic activity/Vol] 66 U/L 34 - 123 U/L [facility] ALT [Catalytic activity/Vol] 11 U/L 7 - 38 U/L [facility] Anion gap [Moles/Vol] 10 mmol/L 8 - 15 mmol/L [facility] AST [Catalytic activity/Vol] 8 U/L Low 13 - 35 U/L [facility] Bilirubin [Mass/Vol] 0.2 mg/dL 0.2 - 1 .3 mg/dL [facility] Calcium [Mass/Vol] 9.6 mg/dL 8.5 - 10. 2 mg/dL [facility] Chloride [Moles/Vol] 103 mmol/L 98 - 10 7 mmol/L [facility] CO2 [Moles/Vol] 24 mmol/L 22 - 30 mmol/L [facility] Creatinine [Mass/Vol] 0.45 mg/dL Low 0.58 - 0.96 mg/dL [facility] GFR/1.73 sq M.predicted among non-blacks MDRD (S/P/Bld) [Vol rate/Area] 138 mL/min/{1.73_m2} - PINF [facility] Comment on above: Estimated Glomerular Filtration Rate (eGFR) is calculated using the 2020 CKD-EPI creatinine equation. This equation utilizes serum creatinine, sex, and age as parameters. The creatinine assay has traceable calibration to isotope dilution-mass spectrometry. Refer to KDIGO guidelines for clinical interpretation. In patients with unstable renal function, e.g. those with acute kidney injury, the eGFR may not accurately reflect actual GFR. Glucose [Mass/Vol] 101 mg/dL High 74 - 99 mg/dL [facility] Comment on above: The [place] Diab[employer] s Association (ADA) provides guidance for cutoff values for fasting glucose and random glucose. The ADA defines fasting as no caloric intake for at least 8 hours. Fasting plasma glucose results between 100 to 125 mg/dL indicate increased risk for diabetes (prediabetes). Fasting plasma glucose results greater than or equal to 126 mg/dL meet the criteria for diagnosis of diabetes. In the absence of unequivocal hyperglycemia, results should be confirmed by repeat testing. In a patient with classic symptoms of hyperglycemia or hyperglycemic crisis, random plasma glucose results greater than or equal to 200 mg/dL meet the criteria for diagnosis of diabetes. Reference: Standards of Medical Care in Diabetes 2016, [place] [employer] Association. Diabetes Care. 2016.39(Suppl 1). Interpretation and review of laboratory results Abnormal [facility] Potassium [Moles/Vol] 3.8 mmol/L 3.7 - 5.1 mmol/L [facility] Protein [Mass/Vol] 7.2 g/dL 6.3 - 8.0 g/dL [facility] Sodium [Moles/Vol] 137 mmol/L 136 - 144 mmol/L [facility] Urea nitrogen [Mass/Vol] 8 mg/dL 7 - 21 mg/d L [facility] Comprehensive metabolic 2000 panelon 07-27-2024 Albumin [Mass/Vol] 4.0 g/dL Normal 3.9-4.9 [facility] Comment on above: Order Comment: Speci men Type: BLOOD SPECIMEN [facility] Address: [address] [place] [address] Performed By: #### 2 4323-8, 3084-1 #### [facility] CLIA [id number] [address] [place] [address] [place] ALP [Catalytic activity/Vol] 66 U/L Normal 34-123 [facility] Comment on above: Order Comment: Speci men Type: BLOOD SPECIMEN [facility] Address: [address] [place] [address] Performed By: #### 2 4323-8, 3083- #### [facility] CLIA [id number] [address] [place] [address] [place] ALT [Catalytic activity/Vol] 11 U/L Normal 7-38 [facility] Comment on above: Order Comment: Speci men Type: BLOOD SPECIMEN [facility] Address: [address] [place] [address] Performed By: #### 2 4323-8, 3083-04 #### [facility] CLIA [id number] [address] [place] [address] [place] Anion gap [Moles/Vol] 10 mmol/L Normal 8-15 [facility] Comment on above: Order Comment: Speci men Type: BLOOD SPECIMEN [facility] Address: [address] [place] [address] Performed By: #### 2 4323-8, 3083-04 #### [facility] CLIA [id number] [address] [place] [address] [place] AST [Catalytic activity/Vol] 8 U/L Low 13-35 [facility] Comment on above: Order Comment: Speci men Type: BLOOD SPECIMEN [facility] Address: [address] [place] [address] Performed By: #### 2 4323-8, 3083-04 #### [facility] CLIA [id number] [address] [place] [address] [place] Bilirubin [Mass/Vol] 0.2 mg/dL Normal 0.2-1.3 [facility] Comment on above: Order Comment: Speci men Type: BLOOD SPECIMEN [facility] Address: [address] [facility] [place] [id number] Performed By: #### 2 4323-8, 3083- #### [facility] CLIA [id number] [address] [place] [address] [place] Calcium [Mass/Vol] 9.6 mg/dL Normal 8.5-10.2 [facility] Comment on above: Order Comment: Speci men Type: BLOOD SPECIMEN [facility] Address: [address] [facility] [place] [id number] Performed By: #### 2 4323-8, 3083- #### [facility] CLIA [id number] [address] [place] [address] [place] Chloride [Moles/Vol] 103 mmol/L Normal 98-107 [facility] Comment on above: Order Comment: Speci men Type: BLOOD SPECIMEN [facility] Address: [place] [address] Performed By: #### 2 4323-8, 3083-04 #### [facility] CLIA [id number] [address] [place] [address] [place] CO2 [Moles/Vol] 24 mmol/L Normal 22-30 [facility] Comment on above: Order Comment: Speci men Type: BLOOD SPECIMEN [facility] Address: [address] [place] [address] Performed By: #### 2 4323-8, 3083-04 #### [facility] CLIA [id number] [address] [place] [address] [place] Creatinine [Mass/Vol] 0.45 mg/dL Low 0.58-0.96 [facility] Comment on above: Order Comment: Speci men Type: BLOOD SPECIMEN [facility] Address: [address] [facility] [place] [address] Performed By: #### 2 4323-8, 3083- #### [facility] [id number] [address] [place] [address] [place] Creatinine and Glomerular filtration rate.predicted panel (S/P/Bld) 138 mL/min/1.73m??? Normal >=60 [facility] Comment on above: Order Comment: Louie san Type: BLOOD SPECIMEN [facility] Address: [address] [place] [address] Result Comment: Swati mated Glomerular Filtration Rate (eGFR) is calculated using the 2020 CKD-EPI creatinine equation. This equation utilizes serum creatinine, sex, and age as parameters. The creatinine assay has traceable calibration to isotope dilution-mass spectrometry. Refer to KDIGO guidelines for clinical interpretation. In patients with unstable renal function, e.g. those with acute kidney injury, the eGFR may not accurately reflect actual GFR. Performed By: #### 2 4323-8, 308-1 #### [facility] [id number] [address] [place] [address] [place] Glucose [Mass/Vol] 101 mg/dL High 74-99 [facility] Comment on above: Order Comment: Louie san Type: BLOOD SPECIMEN [facility] Address: [address] [place] [address] Result Comment: The [place] Diabetes Association (ADA) provides guidance for cutoff values for fasting glucose and random glucose. The ADA defines fasting as no caloric intake for at least 8 hours. Fasting plasma glucose results between 100 to 125 mg/dL indicate increased risk for diabetes (prediabetes). Fasting plasma glucose results greater than or equal to 126 mg/dL meet the criteria for diagnosis of diabetes. In the absence of unequivocal hyperglycemia, results should be confirmed by repeat testing. In a patient with classic symptoms of hyperglycemia or hyperglycemic crisis, random plasma glucose results greater than or equal to 200 mg/dL meet the criteria for diagnosis of diabetes. Reference: Standards of Medical Care in Diabetes 2016, [place] Diabetes [employer]. Diabetes Care. 2016.39(Suppl 1). Performed By: #### 2 4323-8, 308-1 #### [facility] [id number] [address] [place] [address] [place] Potassium [Moles/Vol] 3.8 mmol/L Normal 3.7-5.1 [facility] Comment on above: Order Comment: Speci men Type: BLOOD SPECIMEN [facility] Address: [address] [place] [address] Performed By: #### 2 4323-8, 3084-1 #### [facility] CLIA [id number] [address] [place] [address] [place] Protein [Mass/Vol] 7.2 g/dL Normal 6.3-8.0 [facility] Comment on above: Order Comment: Speci men Type: BLOOD SPECIMEN [facility] Address: [address] [place] [address] Performed By: #### 2 4323-8, 3083-1 #### [facility] CLIA [id number] [address] [place] [address] [place] Sodium [Moles/Vol] 137 mmol/L Normal 136-144 [facility] Comment on above: Order Comment: Speci men Type: BLOOD SPECIMEN [facility] Address: [address] [place] [address] Performed By: #### 2 4323-8, 3084-1 #### [facility] CLIA [id number] [address] [place] [address] [place] Urea nitrogen [Mass/Vol] 8 mg/dL Normal 7-21 [facility] Comment on above: Order Comment: Speci men Type: BLOOD SPECIMEN [facility] Address: [address] [place] [address] Performed By: #### 2 4323-8, 3084-1 #### [facility] CLIA [id number] [address] [place] [address] [place] Examination level ultrasound on 07-27-2024 [facility] Radiology Study observation (narrative) [facility] No Panel InformationOrdered By: Suri Hughes on 07-27-2024 [facility] Reagin and Treponema pallidu m IgG and IgM [Interp]on 07-27-2024 T. pallidum IgG+IgM IA Ql (S) Non-Reactive Normal Nonreactive [facility] Comment on above: Order Comment: Speci men Type: BLOOD SPECIMENOrdering Facility: [facility] Address: [address] [place] [address] Performed By: #### 7 3752-8 ####[place] [facility] [id number] [address] [address] [place] Reagin+T pallidum IgG+IgM Se rPl-Impon 07-27-2024 Reagin and Treponema pallidum IgG and IgM [Interp] Cannot exclude recent Treponemal infection if specimen collected within 7-10 days after appearance of suspect lesions or 2-3 weeks after an exposure. Clinical correlation is required. Normal [facility] Comment on above: Order Comment: Speci men Type: BLOOD SPECIMENOrdering Facility: [facility] Address: [address] [place] [address] Performed By: #### 7 3752-8 ####[place] [facility] [id number] [address] [address] [place] URIC ACIDon 07-27-2024 Urate [Mass/Vol] 6.2 mg/dL 2.5 - 6.6 mg/dL [facility] Urate SerPl-mCncon Urate [Mass/Vol] 6.2 mg/dL Normal 2.5-6.6 [facility] Comment on above: Order Comment: Louie san Type: BLOOD SPECIMEN [facility] Address: [address] [place] [address] Performed By: #### 2 4323-8, 3084-1 #### [facility] CLIA [id number] [address] [place] [id number] [place] Urate [Mass/Vol]on Interpretation and review of laboratory results Normal [facility] FETALon 07-06-2024 + --------+-+ Pediatric Cardiology Echocardiogram Report + --------+-+ NAME: MRS. ALON SCHMITT : 2000 PT ID#: [id number] Age: 23 years Sex: F STUDY DATE: 07/06/2024 9:07:18 AM LUIS: 11/08/2024 GA: 22w1d Image Quality: Technically difficult and adequate. Referring Physician: Niru Harrington Diagnosing Physician: Meli Anne MD Property Coordinator: Franci Metz [facility] 2nd Property Coordinator: Diagnosis: [id number] abnormality and damage, single fetus or unspecified Procedure Code: 99956, 30934, 45577 Echo, Complete (w/Doppler and color) Exam Location: [facility] (). Indications: Evaluate cardiac anatomy and function Exam Quality: Images were suboptimal secondary to Position. Color Doppler was utilized to interrogate the cardiac valves assessed. Spectral Doppler was utilized to determine the flow velocities and pressure gradients reported in this exam. History: Single umbilical artery Parameters: Single/Multi: Stevens Position: position is breech Biometry: Biometry Table: Biparietal Diameter 5.29 cm Abdominal Circumference 16.64 cm Femur Length 3.54 cm Estimated Weight 458.63 g Vessels: Three-vessel umbilical cord is present. Umbilical artery flow Doppler is normal. Umbilical venous flow Doppler is normal. Ductus Venosus Doppler is normal. Cerebral Artery Doppler is not well visualized. UA S/D 2.8 UA PI 1.03 Rate and Rhythm: Normal heart rate and rhythm. HR 144 bpm Segmental Anatomy, Cardiac Position and Situs: The segmental anatomy and situs are normal. Normal visceral situs. The heart position is within the left hemithorax (levo position). Levocardia (apex to the left). The aorta is to the right of the pulmonary artery. Segmental anatomy is S,D,S. Systemic Veins: Right superior vena cava is right sided and drains normally to the right atrium. The inferior vena cava is right sided and inserts normally into the right atrium. Pulmonary Veins: At least one pulmonary vein on each side drains to the left atrium. Atria: The right atrium is normal in size. The left atrium is normal in size. Widely patent foramen ovale with normal intrauterine right to left flow. Tricuspid Valve: The tricuspid valve is normal. Tricuspid valve inflow Doppler is biphasic. There is no tricuspid valve regurgitation. Right Ventricle: There is qualitatively normal right ventricular size and wall thickness with normal systolic function. Mitral Valve: The mitral valve is normal. There is no mitral valve regurgitation. Mitral valve inflow Doppler is biphasic. Left Ventricle: Normal left ventricular size and wall thickness with normal systolic function. VSD: There is no obvious ventricular septal defect. Conotruncal Anatomy: There is normal conotruncal anatomy. RVOT: There is no right ventricular outflow tract obstruction. Pulmonary Valve: The pulmonary valve is normal. There is no pulmonary valve stenosis. There is no pulmonary valve regurgitation. Pulmonary Arteries: The main and branch pulmonary arteries appear normal. The main pulmonary artery is normal. LVOT: There is no left ventricular outflow tract obstruction. Aortic Valve: The aortic valve is normal with no stenosis and no regurgitation. Aorta: Aortic arch is widely patent. Ductus Arteriosus: Ductal arch is widely patent with normal intrauterine right to left flow. Pericardium: There is no pericardial effusion. Measurements: 2D: Z-Score Aortic annulus 3.1 mm -1.21 MV annulus 5.1 mm -0.79 Pulmonary annulus 4.3 mm -0.27 TV annulus 5.3 mm -0.75 Summary 1. Normal echocardiogram with no cardiac anomalies detected. 2. Segmental anatomy and situs are normal. 3. Widely patent foramen ovale with normal intrauterine right to left flow. 4. Qualitatively normal right ventricular size and wall thickness with normal systolic function. 5. Normal left ventricular size and wall thickness with normal systolic function. 6. Ductal arch is widely patent with normal intrauterine right to left flow. 7. Aortic arch is widely patent. 8. Normal heart rate and rhythm. 9. No pericardial effusion. The results and limitations of the echocardiogram and echocardiography in general, including the inability to exclude ASDs, some VSDs, minor valvar abnormalities, partial anomalous pulmonary venous return, persistent patent ductus arteriosus, and coarctation of the aorta, were explained to the patient. ___ Meli Anne MD *Electronically signed on 07/06/2024 at 10:08:32 AM Final CC [employer] Medical Image : [id number] ID See Link below for Image Normal [facility] Examination level ultrasound on 06-24-2024 Indication Detailed anatomic survey Maternal obesity, BMI >45 Impression REMOTE READ The patient is referred for a detailed anatomic survey. - Single, live, intrauterine . - biometry is consistent with the established gestational age. - No malformations were visualized on a detailed anatomic survey, although some anatomical structures were suboptimally seen as detailed below. There is a suspected single umbilical artery. - The amniotic fluid volume is normal amount. - The placenta is anterior, fundal. - The Transabdominal cervical length measures 33 mm with no evidence of funneling or other dynamic changes. - Not all structural malformations can be detected by ultrasound examination. Ultrasound Consultation I called patient after the ultrasound, verified ID and discussed the findings. On today?s ultrasound, a single umbilical artery was identified. No other anomalies were noted. Some anatomic structures were subvisualized. NIPT was low risk. A single umbilical artery is rarely associated with growth restriction or abnormalities of the heart and kidneys. Serial growth ultrasounds starting 28 weeks and weekly NSTs at 32 weeks were recommended to the patient. The patient was counseled regarding the sonographic findings and to the potential for non-visualized malformations. Recommendations Follow-up anatomy and growth ultrasound recommended in four weeks. Maternal Assessment Height 163 cm Height (ft) 5 ft Height (in) 4 in Physical Exam Initial weight (lb) 281 lb Initial BMI 48.23 kg/m Maternal assessment other: 2 Para 0 Method Transabdominal ultrasound examination. View: Suboptimal view: limited by position. Suboptimal view: limited by maternal body habitus Stevens . Number of fetuses: 1 Dating LMP on: 02/02/2024 GA by LMP 20 w + 3 d LUIS by LMP: 11/08/2024 GA by prior assessment 20 w + 3 d LUIS by prior assessment: 11/08/2024 Ultrasound examination on: 06/24/2024 GA by U/S based upon: AC, BPD, Femur, HC GA by U/S 20 w + 4 d LUIS by U/S: 11/07/2024 Assigned: based on stated LUIS, selected on 06/24/2024 Assigned GA 20 w + 3 d Assigned LUIS: 11/08/2024 General Evaluation Cardiac activity present. FHR 156 bpm. movements: present. Presentation: cephalic Placenta: Placental site: anterior, fundal Umbilical cord: Cord vessels: 2 vessel cord. Insertion site: subvisualized Amniotic fluid: Amount of AF: normal amount. MVP 3.4 cm Growth Overview Exam date GA BPD (mm) HC (mm) AC (mm) FL (mm) HL (mm) EFW (g) 06/24/2024 20w 3d 46.1 29% 176.3 40% 165.3 80% 33.4 66% 31.6 55% 386 70% Biometry Standard BPD 46.1 mm 20w 0d 29% Hadlock OFD 62.5 mm 20w 1d 55% Nicolaides HC 176.3 mm 20w 1d 40% Delvin Cerebellum tr 20.2 mm 19w 3d 33% Hill Nuchal fold 3.4 mm AC 165.3 mm 21w 4d 80% Hadlock Femur 33.4 mm 20w 5d 66% Delvin Humerus 31.6 mm 20w 4d 55% Delvin EFW 386 g 20w 6d 70% Hadlock EFW (lb) 0 lb EFW (oz) 14 oz EFW by: Hadlock (HC-AC-FL) Extended Coconut Boiler 5.6 mm CM 5.5 mm 65% Nicolaides Extremities / Bony Struc FL / HC 0.19 55% Hadlock Other Structures FHR 156 bpm Anatomy Cranium: normal Lateral ventricles: normal Choroid plexus: normal Midline falx: normal Cavum septi pellucidi: suboptimally visualized Cerebellum: normal Cisterna magna: normal Head / Neck Vermis: normal Neck: normal Nuchal fold: normal Lips: normal Profile: normal Nose: normal Face Maxilla: normal Mandible: normal Orbits: normal Lens: normal 4-chamber view: suboptimally visualized RVOT view: suboptimally visualized LVOT view: suboptimally visualized 3-vessel view: normal [id number] view: normal Heart / Thorax Situs: situs solitus (normal) Aortic arch view: suboptimally visualized SVC: normal IVC: normal Cardiac axis: normal Rt lung: suboptimally visualized Lt lung: suboptimally visualized Diaphragm: suboptimal Cord insertion: normal Stomach: normal Kidneys: normal Bladder: normal Genitals: suboptimally visualized Abdomen Abdom. wall: normal Cervical spine: normal Thoracic spine: normal Lumbar spine: suboptimally visualized Sacral spine: suboptimally visualized Arms: normal Legs: normal Rt upper arm: normal Rt forearm: normal Rt hand: normal Rt fingers: normal Lt upper arm: normal Lt forearm: normal Lt hand: normal Lt fingers: normal Rt upper leg: normal Rt lower leg: normal Rt foot: normal Lt upper leg: normal Lt lower leg: normal Lt foot: normal sex: male Wants to know sex: yes Maternal Structures Uterus / Cervix Uterus: Visualized Cervix: Visualized Approach: Transabdomin (more content not included)... MATERNAL MEDICINE [facility] Radiology Study observation (narrative) [facility] [id number] 05-24-2024 [id number] Called Alon and discussed symptoms. Rx sent for Amoxicillin. Pharmacy verified. Discussed signs and symptoms warranting follow up in the office- verbalized understanding. Normal [facility] [id number] PLUSon 04-29-2024 Cell-free DNA./Cell-free DNA.total Dosage of chromosome-specific cfDNA (cfDNA) [Molar fraction] 8% Normal [facility] Comment on above: Order Comment: Speci men Type: BLOOD SPECIMENOrdering Facility: [facility] Address: [address] [place] [address] Performed By: #### M AT21 ####[employer] LABCLIA [id number] [place] [address] Chr 13+18+21+X+Y aneuploidy Dosage of chromosome-specific cfDNA Ql (cfDNA) Negative Normal [facility] Comment on above: Order Comment: Speci men Type: BLOOD SPECIMENOrdering Facility: [facility] Address: [address] [place] [address] Performed By: #### M AT21 ####[employer] LABCLIA [id number] [place] [address] Chr 21 trisomy Dosage of chromosome-specific cfDNA Ql (cfDNA) Negative Normal [facility] Comment on above: Order Comment: Speci men Type: BLOOD SPECIMENOrdering Facility: [facility] Address: [address] [place] [address] Performed By: #### M AT21 ####[employer] LABCLIA [id number] [place] [address] Chr X and Y aneuploidy risk Sequencing Ql (cfDNA) [Interp] Not detected Normal [facility] Comment on above: Order Comment: Speci men Type: BLOOD SPECIMENOrdering Facility: [facility] Address: [address] [place] [address] Result Comment: Not Detected Not Detected Performed By: #### M AT21 ####[employer] LABCLIA [id number] [place] [id number] Citation Christian (Reference lab test) Comment Normal [facility] Comment on above: Order Comment: Speci men Type: BLOOD SPECIMENOrdering Facility: [facility] Address: [address] [place] [address] Result Comment: 1. P lisa MYRICK, et al. Amanda Med. 2012;14(3):296-305. 2. Bindu ROMAN et al. Prenat Diag. 2013;33(6):591-597. 3. Anthony C, et al. Clin Chem. 2015 Apr;61(4):608-616. 4. Margaret MYRICK et al. Amanda Med. 2011;13(11):913-920. 5. ACOG/SMFM Practice Bulletin No. 226, Jan 2020. Performed By: #### M AT21 ####[employer] LABCLIA [id number] [place] [id number] Gestational age Estimated from conception date Stevens Normal [facility] Comment on above: Order Comment: Speci men Type: BLOOD SPECIMENOrdering Facility: [facility] Address: [address] [place] [address] Performed By: #### M AT21 ####[employer] LABCLIA [id number] [place] [address] GESTATIONALAGE AGE > OR = 9W Yes Normal [facility] Comment on above: Order Comment: Speci men Type: BLOOD SPECIMENOrdering Facility: [facility] Address: [address] [place] [address] Performed By: #### M AT21 ####[employer] LABCLIA [id number] [place] [id number] Laboratory comment Christian (Report) Comment Normal [facility] Comment on above: Order Comment: Speci men Type: BLOOD SPECIMENOrdering Facility: [facility] Address: [address] [place] [address] Result Comment: The MaterniT(R) 21 PLUS laboratory-developed test (LDT) analyzes circulating cell-free DNA from a maternal blood sample. This test is used for screening purposes and not diagnostic. Clinical correlation is recommended. Validation data on twin pregnancies is limited and the ability of this test to detect aneuploidy in higher multiple gestations has not yet been validated. Performed By: #### M AT21 ####[employer] LABCLIA [id number] [place] [id number] non profit director name Nom (Provider) Comment Normal [facility] Comment on above: Order Comment: Speci men Type: BLOOD SPECIMENOrdering Facility: [facility] Address: [address] [place] [address] Result Comment: This specimen showed an expected representation of chromosome 21, 18 and 13 material. Clinical correlation is suggested. Comment Marcus Mcrae MD, PhD, Director, [employer] Performed By: #### M AT21 ####[employer] LABCLIA [id number] [place] [id number] LIMITATIONS OF THE TEST Comment Normal [facility] Comment on above: Order Comment: Speci men Type: BLOOD SPECIMENOrdering Facility: [facility] Address: [address] [place] [address] Result Comment: Whil e the results of these tests are highly reliable, discordant results, including inaccurate sex prediction, may occur due to placental, maternal, or mosaicism or neoplasm; vanishing twin; prior maternal organ transplant; or other causes. These tests are screening tests and not diagnostic; they do not replace the accuracy and precision of diagnosis with CVS or amniocentesis. A patient with a positive test result should be referred for genetic counseling and offered invasive diagnosis for confirmation of test results.[5] The results of this testing, including the benefits and limitations, should be discussed with a qualified healthcare provider. management decisions, including termination of the , should not be based on the results of these tests alone. The healthcare provider is responsible for the use of this information in the management of their patient. Sex chromosomal aneuploidies are not reportable for known multiple gestations. A negative result does not ensure an unaffected nor does it exclude the possibility of other chromosomal abnormalities or defects which are not a part of these tests. An uninformative result may be reported, the causes of which may include, but are not limited to, insufficient sequencing coverage, noise or artifacts in the region, amplification or sequencing bias, or insufficient fraction. These tests are not intended to identify pregnancies at risk for neural tube defects or ventral wall defects. Testing for whole chromosome abnormalities (including sex chromosomes) and for subchromosomal abnormalities could lead to the potential discovery of both and maternal genomic abnormalities that could have major, minor, or no, clinical significance. Evaluating the significance of a positive or a non-reportable result may involve both invasive testing and additional studies on the mother. Such investigations may lead to a diagnosis of maternal chromosomal or subchromosomal abnormalities, which on occasion may be associated with benign or malignant maternal neoplasms. These tests may not accurately identify triploidy, balanced rearrangements, or the precise location of subchromosomal duplications or deletions; these may be detected by diagnosis with CVS or amniocentesis. The ability to report results may be impacted by maternal BMI, maternal weight, maternal systemic lupus erythematosus (SLE) and/or by certain pharmaceutical agents such as low molecular weight heparin (for example: Lovenox(R), Xaparin(R), Clexane(R) and Fragmin(R)). Performed By: #### M AT21 ####[employer] LABCLIA [id number] [place] [address] Monosomy X risk Dosage of chromosome-specific cfDNA Ql (Plasma cell-free+WBC DNA) [Interp] Not detected Normal [facility] Comment on above: Order Comment: Speci men Type: BLOOD SPECIMENOrdering Facility: [facility] Address: [address] [place] [address] Performed By: #### M AT21 ####[employer] LABCLIA [id number] [place] [address] NEGATIVE PREDICTIVE VALUE Note Normal [facility] Comment on above: Order Comment: Speci men Type: BLOOD SPECIMENOrdering Facility: [facility] Address: [address] [place] [address] Result Comment: The Negative Predictive Value (NPV) for trisomy 21, 18, and 13 is greater than 99%. The NPV for SCA and ESS cannot be calculated as SCA and ESS are only reported when an abnormality is detected. Performed By: #### M AT21 ####[employer] [facility] LABCLIA [id number] [place] [address] NOTE Comment Normal [facility] Comment on above: Order Comment: Speci men Type: BLOOD SPECIMENOrdering Facility: [facility] Address: [address] [place] [address] Result Comment: See Notes [employer] is a subsidiary of [email or web address], using the brand [employer]. This test was developed and its performance characteristics determined by [employer]. It has not been cleared or approved by the Food and Drug Administration. This laboratory is certified under the Clinical Laboratory Improvement Amendments (CLIA) as qualified to perform high complexity clinical laboratory testing and accredited by the [employer] (CAP). If there is future clinical need for adding MaterniT GENOME testing, this specimen will be available until term. [facility] samples will not be retained beyond 60 days. [facility] patients will have to send a new sample for re-sequencing ([facility] Test Code: [id number]). Performed By: #### M AT21 ####[employer] LABCLIA [id number] [place] [address] PERFORMANCE CHARACTERISTICS Note Normal [facility] Comment on above: Order Comment: Speci men Type: BLOOD SPECIMENOrdering Facility: [facility] Address: [address], [place] [address] Result Comment: ! Sex ! Accuracy: 99.4% ! ! ! ! Region (associated syndrome) ! Est. Sens# ! Est. Spec ! ! ! ! Trisomy 21 (Down Syndrome) ! 99.1% ! 99.9% ! ! ! ! Trisomy 18 (Rosado Syndrome) ! >99.9% ! 99.6% ! ! ! ! Trisomy 13 (Patau Syndrome) ! 91.7% ! 99.7% ! ! ! ! Sex Chromosome Aneuploidies## ! 96.2% ! 99.7% ! ! ! * As reported in [facility] database nstd37 [https://www.ncbi.nlm.nih.gov/dbvar/studies/nstd37/ ] # Estimated Sensitivity. Sensitivity estimated across the observed size distribution of each syndrome [per ISCA database nstd37] and across the range of fractions observed in routine clinical NIPT. Actual sensitivity can also be influenced by other factors such as the size of the event, total sequence counts, amplification bias, or sequence bias. ## Stevens gestation only. Performed By: #### M AT21 ####Brian IndustriesIA [id number] [place] [address] POSITIVE PREDICTIVE VALUE N/A Normal [facility] Comment on above: Order Comment: Speci mena Type: BLOOD SPECIMENOrdering Facility: [facility] Address: [address] [place] [address] Performed By: #### M AT21 ####[employer] LABUS HealthVestIA [id number] [place] [address] Reference Lab Test Method Comment Normal [facility] Comment on above: Order Comment: Louie san Type: BLOOD SPECIMENOrdering Facility: [facility] Address: [address] [place] [address] Result Comment: See Notes Circulating cell-free DNA was purified from the plasma component of maternal blood. The extracted DNA was then converted into a genomic DNA library for aneuploidy analysis of chromosomes 21, 18, and 13 via next generation sequencing.[1] Optional findings based on the test order include sex chromosome aneuploidy (SCA)[2], and enhanced sequencing series (ESS)[3], which will only be reported on as an additional finding when an abnormality is detected. SCA testing includes information on X and Y representation, while ESS testing includes deletions in selected regions (22q, 15q, 11q, 8q, 5p, 4p, 1p) and trisomy of chromosomes 16 and 22. Performed By: #### M AT21 ####[employer] LABUS HealthVestIA [id number] [place] [address] Sex Dosage of chromosome-specific cfDNA Nom (cfDNA) Comment Normal [facility] Comment on above: Order Comment: Speci men Type: BLOOD SPECIMENOrdering Facility: [facility] Address: [address] [place] [address] Result Comment: Cons istent with Male Performed By: #### M AT21 ####[employer] LABCLIA [id number] [place] [address] Test performance information Christian (Unsp spec) Comment Normal [facility] Comment on above: Order Comment: Speci men Type: BLOOD SPECIMENOrdering Facility: [facility] Address: [address] [place] [address] Result Comment: The performance characteristics of the MaterniT(R) 21 PLUS laboratory-developed test (LDT) have been determined in a clinical validation study with women at increased risk for chromosomal aneuploidy.[1-4] Performed By: #### M AT21 ####[employer] LABCLIA [id number] [place] [address] Trisomy 13 risk Dosage of chromosome-specific cfDNA Ql (cfDNA) [Interp] Negative Normal [facility] Comment on above: Order Comment: Donovani mena Type: BLOOD SPECIMENOrdering Facility: [facility] Address: [address] [place] [address] Performed By: #### M AT21 ####[employer] LABCLIA [id number] [place] [address] Trisomy 18 risk Dosage of chromosome-specific cfDNA Ql (Plasma cell-free+WBC DNA) [Interp] Negative Normal [facility] Comment on above: Order Comment: Donovani men Type: BLOOD SPECIMENOrdering Facility: [facility] Address: [address] [place] [address] Performed By: #### M AT21 ####[employer] LABCLIA [id number] [place] [address] CBC W Auto Differential pane l (Bld)on 04-22-2024 Basophils (Bld) [#/Vol] 0.04 10*3/uL Normal <0.11 [facility] Comment on above: Order Comment: Speci men Type: BLOOD SPECIMENOrdering Facility: [facility] Address: [address] [place] [address] Performed By: #### 5 7021-8 ####[facility]RINERS HOSPITALANNABELLIA [id number] [place] [address] [place] Basophils/100 WBC (Bld) 0.6 % Normal [facility] Comment on above: Order Comment: Speci men Type: BLOOD SPECIMENOrdering Facility: [facility] Address: [address] [place] [address] Performed By: #### 5 7021-8 ####[facility] HOSPITALA [id number] [place] [address] [place] Differential cell count method Nom (Bld) Auto Normal [facility] Comment on above: Order Comment: Speci men Type: BLOOD SPECIMENOrdering Facility: [facility] Address: [address] [place] [address] Performed By: #### 5 7021-8 ####[facility] HOS[facility]ITALA [id number] [place] [address] [place] Eosinophils (Bld) [#/Vol] 0.36 10*3/uL Normal <0.46 [facility] Comment on above: Order Comment: Speci men Type: BLOOD SPECIMENOrdering Facility: [facility] Address: [address] [place] [address] Performed By: #### 5 7021-8 ####[facility] MEDICAL CENTERLIA [id number] [place] [address] [place] Eosinophils/100 WBC (Bld) 5.4 % Normal [facility] Comment on above: Order Comment: Speci men Type: BLOOD SPECIMENOrdering Facility: [facility] Address: [address] [place] [address] Performed By: #### 5 7021-8 ####[facility] JIMCindyNCLIA [id number] [place] [address] [place] Erythrocyte distribution width (RBC) [Ratio] 13.0 % Normal 11.5-15.0 [facility] Comment on above: Order Comment: Speci men Type: BLOOD SPECIMENOrdering Facility: [facility] Address: [address] [place] [address] Performed By: #### 5 7021-8 ####[facility] HOSPITALANNABELLIA [id number] [place] [address] [place] Hematocrit (Bld) [Volume fraction] 41.7 % Normal 36.0-46.0 [facility] Comment on above: Order Comment: Speci men Type: BLOOD SPECIMENOrdering Facility: [facility] Address: [address] [place] [address] Performed By: #### 5 7021-8 ####[facility] CENTERLIA [id number] [place] [address] [place] Hemoglobin (Bld) [Mass/Vol] 14.0 g/dL Normal 11.5-15.5 [facility] Comment on above: Order Comment: Speci men Type: BLOOD SPECIMENOrdering Facility: [facility] Address: [address] [place] [address] Performed By: #### 5 7021-8 ####[facility] CENTERLIA [id number] [place] [address] [place] Immature granulocytes (Bld) [#/Vol] 0.03 10*3/uL Normal <0.10 [facility] Comment on above: Order Comment: Speci men Type: BLOOD SPECIMENOrdering Facility: [facility] Address: [address] [place] [address] Performed By: #### 5 7021-8 ####[facility]IN[facility] HOSPITALNCLI [id number] [place] [address] [place] Immature granulocytes/100 WBC (Bld) 0.5 % Normal [facility] Comment on above: Order Comment: Speci men Type: BLOOD SPECIMENOrdering Facility: [facility] Address: [address] [place] [address] Performed By: #### 5 7021-8 ####[facility] MEDICAL CENTERLIA [id number] [place] [address] [place] Lymphocytes (Bld) [#/Vol] 1.34 10*3/uL Normal 1.00-4.00 [facility] Comment on above: Order Comment: Speci men Type: BLOOD SPECIMENOrdering Facility: [facility] Address: [address] [place] [address] Performed By: #### 5 7021-8 ####[facility] [id number] [place] [address] [place] Lymphocytes/100 WBC (Bld) 20.2 % Normal [facility] Comment on above: Order Comment: Speci men Type: BLOOD SPECIMENOrdering Facility: [facility] Address: [address] [place] [address] Performed By: #### 5 7021-8 ####[facility] HOSPITALNCLIA [id number] [place] [address] [place] MCH (RBC) [Entitic mass] 27.5 pg Normal 26.0-34.0 [facility] Comment on above: Order Comment: Speci men Type: BLOOD SPECIMENOrdering Facility: [facility] Address: [address] [place], [place] [address] Performed By: #### 5 7021-8 ####[facility] HOSPITALA [id number] [place] [address] [place] MCHC (RBC) [Mass/Vol] 33.6 g/dL Normal 30.5-36.0 [facility] Comment on above: Order Comment: Speci men Type: BLOOD SPECIMENOrdering Facility: [facility] Address: [address] [place] [address] Performed By: #### 5 7021-8 ####[facility] JIMROBERTO [id number] [place] [address] [place] MCV (RBC) [Entitic vol] 81.8 fL Normal 80.0-100.0 C [facility] Comment on above: Order Comment: Speci men Type: BLOOD SPECIMENOrdering Facility: [facility] Address: [address] [place] [address] Performed By: #### 5 7021-8 ####[facility] HOSPITALTim [id number] [place] [address] [place] Monocytes (Bld) [#/Vol] 0.49 10*3/uL Normal <0.87 [facility] Comment on above: Order Comment: Speci men Type: BLOOD SPECIMENOrdering Facility: [facility] Address: [address] [place] [address] Performed By: #### 5 7021-8 ####[facility] HOS[facility]ITALA [id number] [place] [address] [place] Monocytes/100 WBC (Bld) 7.4 % Normal C [facility] Comment on above: Order Comment: Speci men Type: BLOOD SPECIMENOrdering Facility: [facility] Address: [address] [place] [address] Performed By: #### 5 7021-8 ####[facility] [id number] [place] [address] [place] Neutrophils (Bld) [#/Vol] 4.37 10*3/uL Normal 1.45-7.50 [facility] Comment on above: Order Comment: Speci men Type: BLOOD SPECIMENOrdering Facility: [facility] Address: [address] [place] [address] Performed By: #### 5 7021-8 ####[facility]WNCL[facility] [id number] [place] [address] [place] Neutrophils/100 WBC (Bld) 65.9 % Normal [facility] Comment on above: Order Comment: Speci men Type: BLOOD SPECIMENOrdering Facility: [facility] Address: [address] [place] [address] Performed By: #### 5 7021-8 ####[facility] CENTERLIA [id number] [place] [address] [place] Nucleated RBC (Bld) [#/Vol] 10*3/uL Normal <0.01 [facility] Comment on above: Order Comment: Speci men Type: BLOOD SPECIMENOrdering Facility: [facility] Address: [address] [place] [address] Performed By: #### 5 7021-8 ####[facility] [id number] [place] [address] [place] Nucleated RBC/100 WBC (Bld) [Ratio] 0.0 /100 WBC Normal [facility] Comment on above: Order Comment: Speci men Type: BLOOD SPECIMENOrdering Facility: [facility] Address: [address] [place] [address] Performed By: #### 5 7021-8 ####[facility] [id number] [place] [address] [place] Platelet mean volume (Bld) [Entitic vol] 9.8 fL Normal 9.0-12.7 [facility] Comment on above: Order Comment: Speci men Type: BLOOD SPECIMENOrdering Facility: [facility] Address: [address] [place] [address] Performed By: #### 5 7021-8 ####[facility]OSPITALNCLI [id number] [place] [address] [place] Platelets (Bld) [#/Vol] 262 10*3/uL Normal 150-400 [facility] Comment on above: Order Comment: Speci men Type: BLOOD SPECIMENOrdering Facility: [facility] Address: [address] [place] [address] Performed By: #### 5 7021-8 ####[facility]IN[facility] HOSPITALNCTHERESAA [id number] [place] [address] [place] RBC (Bld) [#/Vol] 5.10 10*6/uL Normal 3.90-5.20 [facility] Comment on above: Order Comment: Speci men Type: BLOOD SPECIMENOrdering Facility: [facility] Address: [address] [place] [address] Performed By: #### 5 7021-8 ####[facility] HOSPITALNCA [id number] [place] [address] [place] WBC (Bld) [#/Vol] 6.63 10*3/uL Normal 3.70-11.00 [facility] Comment on above: Order Comment: Speci men Type: BLOOD SPECIMENOrdering Facility: [facility] Address: [address] [place] [address] Performed By: #### 5 7021-8 ####[facility] HOSPITALNCLIA [id number] [place] [address] [place] nuchal translucency me asured by USon 04-22-2024 Indication First trimester anatomic survey, Obesity BMI > 45 Impression remote read - Single, live, intrauterine . - [place] rump length measurement is consistent with the established gestational age. - heart rate is within normal limits. - First trimester anatomy survey is limited by resolution and early gestational age Maternal Structures: Right Ovary: Size 32 mm x 19 mm x 14 mm Left Ovary: Size 41 mm x 23 mm x 19 mm Recommendations An early anatomic survey at 16 weeks can be offered and a detailed anatomic survey at 20 weeks is recommended due to increased risk Maternal Assessment Height 163 cm Height (ft) 5 ft Height (in) 4 in Physical Exam Initial weight (lb) 281 lb Initial BMI 48.23 kg/m Method Transabdominal ultrasound examination. View: Suboptimal view: limited by maternal body habitus. Suboptimal view: limited by early gestational age Stevens . Number of fetuses: 1 Dating LMP on: 02/02/2024 GA by LMP 11 w + 3 d LUIS by LMP: 11/08/2024 Ultrasound examination on: 04/22/2024 GA by U/S based upon: CRL GA by U/S 11 w + 1 d LUIS by U/S: 11/10/2024 Assigned: based on the LMP, selected on 03/22/2024 Assigned GA 11 w + 3 d Assigned LUIS: 11/08/2024 General Evaluation Cardiac activity present Placenta: anterior Biometry Standard FHR 159 bpm CRL 41.8 mm 11w 1d 7% [facility] First Trimester Anatomy Calvarium: normal Falx cerebri: suboptimal Choroid plexus: suboptimal Profile: suboptimal Nasal bone: suboptimal Retronasal triangle: suboptimal Maxilla: suboptimal Mandible: suboptimal Nuchal translucency: suboptimal Situs: suboptimal Cardiac position: normal Cardiac axis: suboptimal 4-chamber view: suboptimal 4-chamber view with color: suboptimal 8-nduagy-zvhauwm view: suboptimal Abdominal cord insertion: suboptimal Stomach: normal Kidneys: suboptimal Color doppler of renal vessels: suboptimal Bladder: suboptimal Color doppler of perivesical umbilical arteries: suboptimal Vertebral alignment: normal Skin edge: normal Arms: normal Hands: normal Legs: suboptimal Feet: suboptimal Maternal Structures Uterus / Cervix Uterus position: anteverted Ovaries / Tubes / Adnexa Rt ovary: Visualized Rt ovary morphology: normal Rt ovary D1 32 mm Rt ovary D2 19 mm Rt ovary D3 14 mm Rt ovary Vol 4.5 cm Lt ovary: Visualized Lt ovary morphology: normal Lt ovary D1 41 mm Lt ovary D2 23 mm Lt ovary D3 19 mm Lt ovary Vol 9.2 cm Performed By: Cinthya Dey RDMS Read By: Concepcion Ricci M.D. MATERNAL MEDICINE [facility] Radiology Study observation (narrative) [facility] HBV surface Ag Ser Qlon 03-29 HBV surface Ag Ql (S) Negative Normal Negative [facility] Comment on above: Order Comment: Speci men Type: BLOOD SPECIMENOrdering Facility: [facility] Address: [address] [place] [address] Performed By: #### 7 3752-8, 64791-5, 3 ####[facility] [id number] [place] [address] [place] HCV Ab Ser Qlon 04-22-2024 HCV Ab Ql (S) Negative Normal Negative [facility] Comment on above: Order Comment: Speci men Type: BLOOD SPECIMENOrdering Facility: [facility] Address: [address] [place] [address] Result Comment: The result suggests no evidence of active infection with Hepatitis C virus. Should recent infection be suspected, repeat testing may be considered 4-6 weeks after this draw. Performed By: #### 1 6128-1 ####[facility] [id number] [place] [address] [place] HIV 1+2 Ab IA Qlon HIV 1 and 2 Ab IA.rapid Nom (S/P/Bld) Normal [facility] Comment on above: Order Comment: Speci men Type: BLOOD SPECIMENOrdering Facility: [facility] Address: [address] [place] [address] Result Comment: Test not indicated. Performed By: #### 7 3752-8, 99481-3, 3 ####[facility] [id number] [place] [address] [place] HIV 1+2 Ab+HIV1 p24 Ag IA Ql Non-Reactive Normal Nonreactive [facility] Comment on above: Order Comment: Speci men Type: BLOOD SPECIMENOrdering Facility: [facility] Address: [address] [place] [address] Performed By: #### 7 3752-8, 20391-3, 3 ####[facility] [id number] [place] [address] [place] HIV immunoassay testing algorithm interpretation (S/P/Bld) [Interp] Normal [facility] Comment on above: Order Comment: Speci men Type: BLOOD SPECIMENOrdering Facility: [facility] Address: [address] [place] [address] Result Comment: No e vidence of HIV-1 or HIV-2 infection. Should recent infection be suspected, repeat testing may be considered 2-3 weeks after this draw. [place] Rev. Code 3701.243(E): This information has been disclosed to you from confidential records protected from disclosure by state law. ???You shall make no further disclosure of this information without the specific, written, and informed release of the individual to whom it pertains or as otherwise permitted by state law. A general authorization for the release of medical or other information is not sufficient for the purpose of the release of HIV test results or diagnoses. Performed By: #### 7 3752-8, 64163-5, 5195-3 ####[facility] [id number] [place] [address] [place] HbA1c (Bld)on 04-22-2024 Average glucose Estimated from glycated hemoglobin (Bld) [Mass/Vol] 97 mg/dL Normal [facility] Comment on above: Order Comment: Speci men Type: BLOOD SPECIMENOrdering Facility: [facility] Address: [address] [place] [address] Result Comment: eAG: (Estimated average glucose) is a calculated value from HgbA1c and is novelties sales representative of the average blood glucose level in the last 2-3 month period. Performed By: #### 5 5454-3 ####[facility] [id number] [place] [address] [place] HbA1c (Bld) [Mass fraction] 5.0 % Normal 4.3-5.6 [facility] Comment on above: Order Comment: Speci men Type: BLOOD SPECIMENOrdering Facility: [facility] Address: [address] [place] [address] Result Comment: Amer [place] Diabetes Association guidelines indicate that patients with HgbA1c in the range 5.7-6.4% are at increased risk for development of diabetes, and intervention by lifestyle modification may be beneficial. HgbA1c greater or equal to 6.5% is considered diagnostic of diabetes. Performed By: #### 5 5454-3 ####[facility] [id number] [place] [address] [place] RUBELLA IGG ANTIBODYon 04-22 RUBELLA IGG AB, QUAL Positive Normal Positive [facility] Comment on above: Order Comment: Speci men Type: BLOOD SPECIMENOrdering Facility: [facility] Address: [address] [place] [address] Result Comment: The result suggests recent or past exposure to Rubella virus or history of Rubella vaccination. Positive result may also be seen due to presence of passively-transferred antibodies. Please correlate with patient's history. Performed By: #### R UBIGG ####[facility] [id number] [place] [address] [place] Reagin and Treponema pallidu m IgG and IgM [Interp]on 04-22-2024 T. pallidum IgG+IgM IA Ql (S) Non-Reactive Normal Nonreactive [facility] Comment on above: Order Comment: Speci men Type: BLOOD SPECIMENOrdering Facility: [facility] Address: [address] [place] [address] Performed By: #### 7 3752-8, 49138-9, 5195-3 ####[facility] [id number] [place] [address] [place] Reagin+T pallidum IgG+IgM Se rPl-Impon 04-22-2024 Reagin and Treponema pallidum IgG and IgM [Interp] Cannot exclude recent Treponemal infection if specimen collected within 7-10 days after appearance of suspect lesions or 2-3 weeks after an exposure. Clinical correlation is required. Normal [facility] Comment on above: Order Comment: Speci men Type: BLOOD SPECIMENOrdering Facility: [facility] Address: [address] [place] [address] Performed By: #### 7 3752-8, 11879-3, 5195-3 ####[facility] [id number] [place] [address] [place] TYPE + SCREEN PRENATALon ABO AB Normal [facility] Comment on above: Order Comment: Speci men Type: BLOOD SPECIMEN [facility] Address: [address] [place] [address] Performed By: #### 2 4323-8, 3084-1 #### [facility] CLIA [id number] [address] [place] [address] [place] Rh Nom (Bld) Positive Normal [facility] Comment on above: Order Comment: Speci men Type: BLOOD SPECIMEN [facility] Address: [address] [place] [address] Performed By: #### 2 4323-8, 3084-1 #### [facility] CLIA [id number] [address] [place] [address] [place] TYPE AND SCREEN EXPIRATION 04/25/2024 23:59 Normal [facility] Comment on above: Order Comment: Speci men Type: BLOOD SPECIMEN [facility] Address: [address] [place] [address] Performed By: #### 2 4323-8, 3084-1 #### [facility] CLIA [id number] [address] [place] [address] [place] Urinalysis complete panel (U )on 04-02-2024 BACTERIA UL 1124.1 uL High Negative [facility] Comment on above: Order Comment: Speci men Type: URINE SPECIMENOrdering Facility: [facility] Address: [address] [place] [address] Performed By: #### 2 4356-8 ####[facility] [id number] [place] [address] [place] Bilirubin Ql (U) Negative Normal Negative [facility] Comment on above: Order Comment: Speci men Type: URINE SPECIMENOrdering Facility: [facility] Address: [address] [place] [address] Performed By: #### 2 4356-8 ####[facility] [id number] [place] [address] [place] Clarity (Unsp spec) Clear Normal Clear [facility] Comment on above: Order Comment: Speci men Type: URINE SPECIMENOrdering Facility: [facility] Address: [address] [place] [address] Performed By: #### 2 4356-8 ####[facility] [id number] [place] [address] [place] [facility] Color (U) Yellow Normal Yellow [facility] Comment on above: Order Comment: Speci men Type: URINE SPECIMENOrdering Facility: [facility] Address: [address] [place] [address] Performed By: #### 2 4356-8 ####[facility] [id number] [place] [address] [place] Epithelial cells LM.HPF (Urine sed) [#/Area] None Seen Normal [facility] Comment on above: Order Comment: Speci men Type: URINE SPECIMENOrdering Facility: [facility] Address: [address] [place] [address] Performed By: #### 2 4356-8 ####[facility] [id number] [place] [address] [place] Glucose Test strip (U) [Mass/Vol] Negative Normal Negative [facility] Comment on above: Order Comment: Speci men Type: URINE SPECIMENOrdering Facility: [facility] Address: [address] [place] [address] Performed By: #### 2 4356-8 ####[facility] [id number] [place] [id number] [address] [place] Hemoglobin Ql (U) Negative Normal Negative [facility] Comment on above: Order Comment: Speci men Type: URINE SPECIMENOrdering Facility: [facility] Address: [address] [place] [address] Performed By: #### 2 4356-8 ####[facility] [id number] [place] [address] [place] Hyaline casts (Urine sed) [#/Area] 0 /[LPF] Normal 0 /LPF [facility] Comment on above: Order Comment: Speci men Type: URINE SPECIMENOrdering Facility: [facility] Address: [address] [place] [address] Performed By: #### 2 4356-8 ####[facility] [id number] [place] [address] [place] Ketones Ql (U) Trace Abnormal Negative [facility] Comment on above: Order Comment: Speci men Type: URINE SPECIMENOrdering Facility: [facility] Address: [address] [place] [address] Performed By: #### 2 4356-8 ####[facility] [id number] [place] [address] [place] Leukocyte esterase Test strip Ql (U) Negative Normal Negative [facility] Comment on above: Order Comment: Speci men Type: URINE SPECIMENOrdering Facility: [facility] Address: [address] [place] [address] Performed By: #### 2 4356-8 ####[facility] [id number] [place] [address] [place] Nitrite Ql (U) Negative Normal Negative [facility] Comment on above: Order Comment: Speci men Type: URINE SPECIMENOrdering Facility: [facility] Address: [address] [place] [address] Performed By: #### 2 4356-8 ####[facility] [id number] [place] [address] [place] pH (U) 5.5 [pH] Normal <8.5 [facility] Comment on above: Order Comment: Speci men Type: URINE SPECIMENOrdering Facility: [facility] Address: [address] [place] [address] Performed By: #### 2 4356-8 ####[facility] [id number] [place] [address] [place] Protein (U) [Mass/Vol] Negative Normal Negative [facility] Comment on above: Order Comment: Speci men Type: URINE SPECIMENOrdering Facility: [facility] Address: [address] [place] [address] Performed By: #### 2 4356-8 ####[facility] [id number] [place] [address] [place] RBC LM.HPF (Urine sed) [#/Area] 0-2 /HPF Normal 0-2 /HPF [facility] Comment on above: Order Comment: Speci men Type: URINE SPECIMENOrdering Facility: [facility] Address: [address] [place] [address] Performed By: #### 2 4356-8 ####[facility] [id number] [place] [address] [place] Specific gravity (U) [Rel density] 1.031 High 1.005-1.030 [facility] Comment on above: Order Comment: Speci men Type: URINE SPECIMENOrdering Facility: [facility] Address: [address] [place] [address] Performed By: #### 2 4356-8 ####[facility] [id number] [place] [address] [place] Urobilinogen Ql (U) 0.2 EU/dL Normal 0.2-1.0 EU/dL [facility] Comment on above: Order Comment: Speci men Type: URINE SPECIMENOrdering Facility: [facility] Address: [address] [place] [address] Performed By: #### 2 4356-8 ####[facility] [id number] [place] [address] [place] WBC LM.HPF (Urine sed) [#/Area] 0-5 /HPF Normal 0-5 /HPF [facility] Comment on above: Order Comment: Speci men Type: URINE SPECIMENOrdering Facility: [facility] Address: [address] [place] [address] Performed By: #### 2 4356-8 ####[facility] [id number] [place] [address] [place] Bacteria Ur Culton Bacteria identified Cx Nom (U) ORGANISM ID: 1 10,000 -<50,000 CFU/ml Mixed microbiota No further workup. Mixed microbiota can be due to???urine???contami nation with skin bacteria at time of collection or presence of a long-term urinary catheter. If a new culture is needed, please consider re-education of the patient on proper midstream collection technique or straight catheterization for???urine???collec tion. Normal [facility] Comment on above: Performed By: #### 6 30-4 ####[facility] [id number] [place] [address] [place] C. trachomatis+N. gonorrhoea e DNA GUS+probe Ql (Unsp spec)on 03-22-2024 C. trachomatis rRNA GUS+probe Ql (Unsp spec) Not detected Normal Not detected [facility] Comment on above: Order Comment: Speci men Type: SWABOrdering Facility: [facility] Address: [address] [place] [address] Performed By: #### 3 6902-5 ####[facility] [id number] [place] [address] [place] N. 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 Number of embryos: 1 Dating LMP on: 02/02/2024 GA by LMP 7 w + 0 d LUIS by LMP: 11/08/2024 Ultrasound examination on: 03/22/2024 GA by U/S based upon: CRL GA by U/S 7 w + 1 d LUIS by U/S: 11/07/2024 Assigned: based on the LMP, selected on 03/22/2024 Assigned GA 7 w + 0 d Assigned LUIS: 11/08/2024 Biometry Standard FHR 126 bpm CRL 10.1 mm 7w 1d 96% [place] Assessment Gestational sac: visualized Location: intrauterine Yolk sac: visualized CRL 10.1 mm 7w 1d 96% [place] Cardiac activity: present FHR 126 bpm General Evaluation Cardiac activity present. FHR 126 bpm Performed By: Deb Richard CNM Read By: Deb Richard CNM MATERNAL MEDICINE [facility] Radiology Study observation (narrative) Shilo [facility] Arnie 03-15-2024 CONNIE Telephone (OBGYWM) ALON SCHMITT ([id number]) 89 F Date Time Provider Department 03/15/24 DARRYL ADKINS During your visit today, we recorded the following information about you: Kiara Car RN 03/15/2024 12:20 PM Signed Patient states she went to [facility] ER this morning with bleeding in early . LMP 02/02/24 (6weeks today) and u/s today she said u/s showed she was measuring 6w2d. She is having brown discharge and dull pelvic aching, but no significant cramping. Unable to pull records d/t [place] access (can have Ary when she returns from lunch if needed). She said ER doctor did speak with SW and she was told to call the office for follow up. She is asking if she needs repeat u/s this week? Her NOB is scheduled for 03/22/24. ROSMERY Kaur Sara, MD 03/15/2024 3:01 PM Signed Ok to keep appointment for next week unless something changes. Monitor bleeding and call with worsening bleeding or pain Nicole Morley RN 03/15/2024 3:32 PM Signed Patient notified and voiced understanding. Nicole Morley RN Allergies As of Date: 03/15/2024 (No Known Allergies) Date Reviewed: 02/16/2024 Reviewed by: Jeanne Espinosa MA - Fully Assessed Reason for Visit: ER F/U [41] Prescriptions as of 03/15/2024 - VAZALORE 81 mg cap TAKE 81 MG BY MOUTH ONCE DAILY. STARTING WITH POSITIVE TEST. - progesterone micronized (PROMETRIUM) 200 mg capsule Use 1 capsule vaginally daily at bedtime. Starting with positive test. - amoxicillin (AMOXIL) 500 mg capsule Take 500 mg by mouth three times a day. - FLUoxetine (PROZAC) 40 mg capsule Take 40 mg by mouth once daily. Problem List As Of Date: 03/15/2024 (None) Encounter Status:Closed by NICOLE MORLEY on 03/15/24 Normal [facility] Emergency Department Summary on 03-15-2024 Emergency Department Summary [facility] Medical Records Department [address] [facility] [place] [address] Emergency Department Summary 03/15/24 MR#: [id number] Acct: [id number] Name: ALON SCHMITT Rep #: [id number] : 2000 23 From: Jay Jay Stevenson MD PCP: DANYEL Matthew Status:REG ER Location: ED HPI HPI - Female History of Present Illness Chief Complaint: Vag Bld, Preg Detail of Chief Complaint: Vaginal bleeding first noted at 0800 Informant: patient Pain Pain: Negative for Pelvic Pain, Vulvar Pain or Vaginal Pain Bleeding Issue: Positive for Vaginal bleeding; Negative for Passing clots or Passing tissue Onset: Today (0800) Context: Sudden Onset Timing: Continuous Current Severity: Spotting Maximum Severity: Spotting Associated Symptoms Associated Symptoms: Positive for Missed Period; Negative for Dysuria, Frequency, Urgency or Hematuria Last known menstrual period: Approximately 6.5 weeks, hCG 4000 turn 20 on March 11 Test: Positive Sexually: Positive for Active Control: No control P: 0 Ab: 2 Narrative Narrative: Patient is a 23-year-old AB 2 female who has had multiple tests that are positive. Most recent hCG obtained at the [facility] was 4220 on March 11. 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 Patient has a be positive blood. This was confirmed by looking at old records. Patient denies orthostatic symptoms. Patient denies pelvic pain or left shoulder pain. Patient denies history of ectopic . Patient has not had an ultrasound with this . She has no other complaints other than the vaginal bleeding that was first noted at 0800 this morning. Patient states she had a chemical . The other aborted at 11 weeks and patient reports stopped growing at 6 weeks. Prior similar symptoms: Yes Recent Illness/Hospitalizat ion: No PFSH PFSH Medical History Incomplete Anxiety Home Medications ???Medication ???Instructions ???Recorded ???Last Taken ???Type multivitamin no.47-iron fum 27 1 cap PO DAILY 11/04/23 Unknown History mg-folate no.1 1 mg-dha 300 mg capsule (PNV-DHA) aspirin 81 mg tablet,delayed 81 mg PO DAILY 03/15/24 Unknown History release (Adult Aspirin Regimen) Allergy/AdvReac Type Severity Reaction Status Date / Time No Known Allergies Allergy Verified 03/15/24 08:46 Family History Mother Diabetes, Onset Age: 35 Type 2 Father Diabetes, Onset Age: 40 Type 2 Grandfather Heart disease Paternal Grandmother Diabetes Paternal Surgical History Status post dilation and curettage [place] teeth extracted History of cholecystectomy Social History adopted: No household members: spouse current occupational status: employed current occupation: [employer] current occupational exposures/hazards: No pets and animals: Yes pets and animals: dog(s) history of recent travel: No sexually active: Yes Smoking Status: Never smoker alcohol intake: never substance use type: does not use well-balanced diet: daily or most days caffeine: No eating out: 1-3 times/week during the past year weight has: increased > 10 lbs what type of physical activity do you participate in: walking and other details: yard work frequency: 1-2 times per week duration: 30-45 minutes/day kenyetta/congregation: Denominational seatbelt use: always do you feel safe at home: Yes 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 ; Denies chest pain or palpitations Respiratory/Chest Respiratory/Chest: Denies dyspnea or dyspnea on exertion Gastrointestinal Gastrointestinal: Denies abdominal pain, nausea or vomiting Genitourinary Genitourinary ED: Denies dysuria, hematuria or urinary frequency Musculoskeletal Musculoskeletal: Reports other Details: Patient denies low back pain. Patient denies left shoulder/trapezius pain. Hematologic/Lymphati c Hematologic/Lymphati c: Denies easy bleeding or easy bruising EXAM Physical Exam Const Vital Signs: 03/15/24 08:46 03/15/24 10:46 Temperature 96.7 F L Temperature Source Temporal Pulse Rate 106 H 89 Respiratory Rate 18 Blood Pressure 174/96 H 142/82 H Blood Pressure Mean 122 102 Pulse Ox 99 Oxygen Delivery Method Room Air Positive well nourished and well developed Constitutional Narrative: BMI is 50.5. Blood pressure is elevated. Patient is tachycardic. This may be due to anxiety. She is presently taking a baby aspirin and progesterone vaginal supposito (more content not included)... Normal [facility] Transvaginal w/Preg USon Transvaginal w/Preg US [facility] Imaging Services [address] [place] [address] Transvaginal w/Preg US MR#: [id number] Acct: [id number] Name: ALON SCHMITT Rep #: [id number] : 2000 F 23 From: Daniel Brown MD PCP: DANYEL Matthew Status: REG ER Study: Transvaginal w/Preg US Date of Exam: 03/15/24 Exam# [id number] Ordering Dr: Jay Jay Stevenson MD [id number] STUDY: FIRST TRIMESTER OBSTETRICAL ULTRASOUND REASON FOR EXAM: Female, 23 years old Vaginal bleeding, hCG 4220 on March 11 LMP: 02/02/2024 TECHNIQUE: Transvaginal TECHNICAL QUALITY: Adequate. PRIOR ULTRASOUND: None. FINDINGS: There is visualization of a single gestational sac in a normal intrauterine position. The mean sac diameter (MSD) measures 1.49 cm, indicating an estimated gestational age (EGA) of 6 weeks, 2 days. The gestational sac shape is within normal limits. There is a visualized yolk sac. The yolk sac measures 0.29 cm. The placenta is non-visualized. There is visualization of a live embryo. The crown-rump length (CRL) measures 0.34 cm, indicating an estimated gestational age (EGA) of 6 weeks, 1 days. There is demonstrated cardiac activity with a heart rate of 103 bpm. The estimated gestation age (EGA) by LMP is 6 weeks, 0 days. The estimated date of delivery (LUIS) by LMP is 11/08/2024. The estimated gestation age (EGA) by US is 6 weeks, 2 days. The estimated date of delivery (LUIS) by US is 11/06/2024. The uterus measures 8.6 x 5.4 x 4.6 cm. There is no demonstrated uterine fibroid. The cervix is closed. The right ovary measures 3.7 x 2.7 x 1.8 cm. There is no right ovarian cyst. There is no visualized right adnexal mass or complex lesion. The left ovary measures 3.8 x 3.0 x 1.7 cm. There is no left ovarian cyst. There is no visualized left adnexal mass or complex lesion. There is no fluid in the cul de sac. US/Transvaginal w/Preg US IMPRESSION: Single live intrauterine at 6 weeks, 2 days by current ultrasound LUIS of 11/06/2024, and heart rate at 103 bpm. No suspicious sonographic findings Electronically Signed: Rikki Brown MD at 10:56 EST , CC: DANYEL Singh; Dr. Jay Jay Stevenson MD Credit Risk Analytics Manager: Signed Normal [facility] hCG Titer Quant., Serumon HCG QUANT. 51487 mIU/mL High 1-3 [facility] Comment on above: Result Comment: hCG levels with Gestational Age Gestational Age hCG mIU/mL (IU/L) 0.2 - 1 week 5 - 50 1-2 weeks 50 - 500 2-3 weeks 100 - 5000 3-4 weeks 500 - 81207 4-5 weeks 1000 - 03371 5-6 weeks 93552 - 100,000 6-8 weeks 07078 - 200,000 2-3 months 74465 - 100,000 Performed By: #### L 700.8000, B882-1, L100.0100 #### [facility] [address] [place], [address] B-HCG SerPl-[facility] 4 HCG.beta subunit Qn 4222.0 m[IU]/mL High <5.0 [facility] Comment on above: Order Comment: Speci men Type: BLOOD SPECIMENOrdering Facility: [facility] Address: [address] [id number] Result Comment: ESTIVEN TITATIVE HCG NORMAL RANGES Weeks of Gestation (Weeks Since LMP) 3 Weeks (5.8-71.2 mIU/mL) 4 Weeks (9.5-750 mIU/mL) 5 Weeks (217-7138 mIU/mL) 6 Weeks (158-36048 mIU/mL) 7 Weeks (3697-270745 mIU/mL) 8 Weeks (25494-823366 mIU/mL) 9 Weeks (66792-221922 mIU/mL) 10 Weeks (67296-186541 mIU/mL) 12 Weeks (41397-286369 mIU/mL) Referenced to 4th IS of [facility] Performed By: #### 2 1198-7 ####[place] [facility] [id number] [facility] [id number] [place] [address] OF [facility] Arnie 03-10-2024 HARVINDERN Telephone (OBGYWM) ALON SCHMITT ([id number]) 89 F Date Time Provider Department 03/10/24 NIRU HARRINGTON During your visit today, we recorded the following information about you: Nicole Morley, ROSMERY 03/10/2024 8:18 AM Signed Patient calling asking provider customer care consultant to review her results as Dr. Adkins is not in the office until tomorrow. Patient had last HCG quant drawn yesterday and states that she is supposed to get another one drawn tomorrow. Patient had previously requested in a [email or web address] message to have quant levels drawn twice a week d/t her history of miscarriage. Patient denies any pain or cramping. She is scheduled for NOB on 03/22. hCG Quantitative, Blood (mIU/mL) Date Value 03/09/2024 2,342.0 03/05/2024 667.4 03/03/2024 263.8 03/01/2024 117.3 ROSMERY Schumacher Jennifer, MD 03/10/2024 11:58 AM Signed HCG is rising appropriately. She can continue with HCG's but there is no need. Belen Crenshaw RN 03/10/2024 12:15 PM Signed Pt notified and states she would like to get one more and this will be her last one. NOB appt scheduled. Belen Crenshaw RN Allergies As of Date: 03/10/2024 (No Known Allergies) Date Reviewed: 02/16/2024 Reviewed by: Jeanne Espinosa MA - Fully Assessed Reason for Visit: Results [95] Prescriptions as of 03/10/2024 - VAZALORE 81 mg cap TAKE 81 MG BY MOUTH ONCE DAILY. STARTING WITH POSITIVE TEST. - progesterone micronized (PROMETRIUM) 200 mg capsule Use 1 capsule vaginally daily at bedtime. Starting with positive test. - amoxicillin (AMOXIL) 500 mg capsule Take 500 mg by mouth three times a day. - FLUoxetine (PROZAC) 40 mg capsule Take 40 mg by mouth once daily. Problem List As Of Date: 03/10/2024 (None) Encounter Status:Closed by BELEN CRENSHAW on 03/10/24 Normal [facility] B-HCG SerPl-aCncon 4 HCG.beta subunit Qn 2342.0 m[IU]/mL High <5.0 [facility] Comment on above: Order Comment: Speci men Type: BLOOD SPECIMEN Ordering Facility: [facility] Address: [address] [place] [address] Result Comment: ESTIVEN TITATIVE HCG NORMAL RANGES Weeks of Gestation (Weeks Since LMP) 3 Weeks (5.8-71.2 mIU/mL) 4 Weeks (9.5-750 mIU/mL) 5 Weeks (217-7138 mIU/mL) 6 Weeks (158-17806 mIU/mL) 7 Weeks (3697-784978 mIU/mL) 8 Weeks (55576-836936 mIU/mL) 9 Weeks (52872-891504 mIU/mL) 10 Weeks (52784-743590 mIU/mL) 12 Weeks (78897-805592 mIU/mL) Referenced to 4th IS of [facility] Performed By: #### 2 4323-8, 3084-1 #### [facility] CLIA [id number] [address] [place] [address] [place] B-HCG SerPl-aCncon 4 HCG.beta subunit Qn 667.4 m[IU]/mL High <5.0 [facility] Comment on above: Order Comment: Speci men Type: BLOOD SPECIMENOrdering Facility: [facility] Address: [facility] [place] [address] Result Comment: ESTIVEN TITATIVE HCG NORMAL RANGES Weeks of Gestation (Weeks Since LMP) 3 Weeks (5.8-71.2 mIU/mL) 4 Weeks (9.5-750 mIU/mL) 5 Weeks (217-7138 mIU/mL) 6 Weeks (158-82983 mIU/mL) 7 Weeks (3697-759044 mIU/mL) 8 Weeks (39237-275071 mIU/mL) 9 Weeks (46273-265929 mIU/mL) 10 Weeks (67383-977016 mIU/mL) 12 Weeks (70410-328127 mIU/mL) Referenced to 4th IS of [facility] Performed By: #### 2 1198-7 ####[facility] [facility] [id number] [address] [place] CNPDhara 03-04-2024 CNPN Telephone (OBGYWM) ALON SCHMITT ([id number]) 89 F Date Time Provider Department 03/04/24 DARRYL ADKINS During your visit today, we recorded the following information about you: Belen Crenshaw RN 03/04/2024 9:49 AM Signed ----- Message from Darryl Adkins MD sent at 03/04/2024 9:24 AM EST ----- See pt my chart message from today. Will order serial HCG levels. To have next level drawn tomorrow. Notify pt she will not get results until Friday. Can schedule 7 week NOB for bedside US thanks Belen Crenshaw RN 03/04/2024 9:50 AM Signed Pt notified to get drawn tomorrow. NOB appt scheduled. Transferred to [facility] to get lab appt scheduled for tomorrow morning. Belen Crenshaw RN Allergies As of Date: 03/04/2024 (No Known Allergies) Date Reviewed: 02/16/2024 Reviewed by: Jeanne Espinosa MA - Fully Assessed Reason for Visit: Results [95] Appointment [186] Prescriptions as of 03/04/2024 - VAZALORE 81 mg cap TAKE 81 MG BY MOUTH ONCE DAILY. STARTING WITH POSITIVE TEST. - progesterone micronized (PROMETRIUM) 200 mg capsule Use 1 capsule vaginally daily at bedtime. Starting with positive test. - amoxicillin (AMOXIL) 500 mg capsule Take 500 mg by mouth three times a day. - FLUoxetine (PROZAC) 40 mg capsule Take 40 mg by mouth once daily. Problem List As Of Date: 03/04/2024 (None) Encounter Status:Closed by NICOLE MORLEY on 03/04/24 [facility] AL[facility] SCHM[facility] ([id number]) 89 F Date Time Provider Department 03/04/24 DARRYL ADKINS During your visit today, we recorded the following information about you: Darryl Adkins MD 03/04/2024 9:25 AM Signed Serial hcg levels ordered Allergies As of Date: 03/04/2024 (No Known Allergies) Date Reviewed: 02/16/2024 Reviewed by: Jeanne Espinosa MA - Fully Assessed Reason for Visit: Orders [681] Primary Visit Diagnosis:Early stage of [Z34.90] Other Visit Diagnosis:History of miscarriage [Z87.59] Order(s):HCG QUANTITATIVE [SQHCGQT] Order #: [id number] STANDING Prescriptions as of 03/04/2024 - VAZALORE 81 mg cap TAKE 81 MG BY MOUTH ONCE DAILY. STARTING WITH POSITIVE TEST. - progesterone micronized (PROMETRIUM) 200 mg capsule Use 1 capsule vaginally daily at bedtime. Starting with positive test. - amoxicillin (AMOXIL) 500 mg capsule Take 500 mg by mouth three times a day. - FLUoxetine (PROZAC) 40 mg capsule Take 40 mg by mouth once daily. Problem List As Of Date: 03/04/2024 (None) Encounter Status:Closed by DARRYL ADKINS on 03/04/24 Normal [facility] B-HCG SerPl-aCncon 4 HCG.beta subunit Qn 263.8 m[IU]/mL High <5.0 C [facility] Comment on above: Order Comment: Speci men Type: BLOOD SPECIMEN Ordering Facility: [facility] Address: [address] [place] [address] Result Comment: ESTIVEN TITATIVE HCG NORMAL RANGES Weeks of Gestation (Weeks Since LMP) 3 Weeks (5.8-71.2 mIU/mL) 4 Weeks (9.5-750 mIU/mL) 5 Weeks (217-7138 mIU/mL) 6 Weeks (158-56055 mIU/mL) 7 Weeks (3697-778125 mIU/mL) 8 Weeks (09592-444566 mIU/mL) 9 Weeks (55047-891554 mIU/mL) 10 Weeks (75787-540697 mIU/mL) 12 Weeks (74391-669676 mIU/mL) Referenced to 4th IS of [facility] Performed By: #### 2 4323-8, 3084-1 #### [facility] CLIA [id number] [address] [address] [place] B-HCG SerPl-aCncon 4 HCG.beta subunit Qn 117.3 m[IU]/mL High <5.0 C [facility] Comment on above: Order Comment: Speci men Type: BLOOD SPECIMEN Ordering Facility: [facility] Address: [address] [place] [address] Result Comment: ESTIVEN TITATIVE HCG NORMAL RANGES Weeks of Gestation (Weeks Since LMP) 3 Weeks (5.8-71.2 mIU/mL) 4 Weeks (9.5-750 mIU/mL) 5 Weeks (217-7138 mIU/mL) 6 Weeks (158-61867 mIU/mL) 7 Weeks (3697-419584 mIU/mL) 8 Weeks (99381-974519 mIU/mL) 9 Weeks (35626-620877 mIU/mL) 10 Weeks (17304-038233 mIU/mL) 12 Weeks (31459-056261 mIU/mL) Referenced to 4th IS of [facility] Performed By: #### 2 1198-7 #### [facility] CLIA [id number] [address] [place] [address] [place] CNOVon 02-16-2024 CNOV Office Visit (OBGYWM) ALON SCHMITT ([id number]) 89 F Date Time Provider Department 02/16/24 9:40 AM DARRYL ADKINS OBTHELMA During your visit today, we recorded the following information about you: Blood pressure Weight Last Period 128/80 127.3 kg 02/01/24 Darryl Adkins MD 02/16/2024 12:53 PM Signed Alon Schmitt is a 23 year old female who presents as a new patient for history of two miscarriages. HPI: Transfer from [place]. History of 2 miscarriages. With her first she had an emergent DANDC 6.5 weeks on November 20 2023. Second early miscarriage followed HCG quants, and this was conceived before first menses after DANDC. Took 8 months to conceive with first . Regular menstrual cycles q 28-32 days. Using OPK's +ovulation. Bleeding lasts 5 days. Requested workup through PCP and blood work in care everywhere. OB History No obstetric history on file. Fire Official History LMP: 02/01/2024, Having periods Age at Menarche: Age at First : Age at Menopause: Fire Official History Comments: Sexual Activity: Yes; Male Contraception: None PAST MEDICAL HISTORY Diagnosis Date Psychiatric disorder PAST SURGICAL HISTORY Procedure Laterality Date CHOLECYSTECTOMY HX HYSTEROSCOPY, DIAGNOSTIC (SEPARATE D and C for MAB TOOTH EXTRACTION FAMILY HISTORY Problem Relation Age of Onset Diabetes Mother Diabetes Father No Known Problems Brother No Known Problems Brother No Known Problems Maternal Grandmother Heart Maternal Grandfather Diabetes Paternal Grandmother No Known Problems Paternal Grandfather Social History Tobacco Use Smoking status: Never Smokeless tobacco: Never Vaping Use Vaping status: Never Used Substance Use Topics Alcohol use: Never Drug use: Never Current Outpatient Medications Medication Sig aspirin 81 mg cap Take 81 mg by mouth once daily. Starting with positive test. progesterone micronized (PROMETRIUM) 200 mg capsule Use 1 capsule vaginally daily at bedtime. Starting with positive test. amoxicillin (AMOXIL) 500 mg capsule Take 500 mg by mouth three times a day. (Patient not taking: Reported on 02/16/2024) FLUoxetine (PROZAC) 40 mg capsule Take 40 mg by mouth once daily. (Patient not taking: Reported on 02/16/2024) No current facility-administere d medications for this visit. Allergies As of Date: 02/16/2024 (No Known Allergies) Fully Assessed 02/16/2024 REVIEW OF SYSTEMS Expanded ROS: N/A Allergies and current medication updated:Yes SENSITIVE EXAM: Sensitive exam not performed. EXAM: BP 128/80 Wt 280 lb 9.6 oz (127.3kg) LMP 02/01/2024 GENERAL: pleasant, female in no apparent distress HEENT: Normocephalic and atraumatic NECK: full range of motion DERMATOLOGY: Normal, without lesions, non-icteric, and non-hirsute BREAST: deferred CHEST: Normal inspiratory effort ABDOMEN: Deferred PELVIC: deferred BIMANUAL: deferred NEURO: exam grossly non-focal EXTREMITIES: normal ASSESSMENT AND PLAN: Assessment AND Plan History of miscarriage Orders: PELVIC US WHI; Future aspirin 81 mg cap; Take 81 mg by mouth once daily. Starting with positive test. progesterone micronized (PROMETRIUM) 200 mg capsule; Use 1 capsule vaginally daily at bedtime. Starting with positive test. Discussed possible etiologies for miscarriage. Blood work reviewed that was ordered by PCP. Pelvic US WHI ordered after discussion with patient. Sign records release to get records from [place]. Patient reports having recent annual exam. Discussed r/b/a baby ASA and vaginal progesterone suppository and she understands data is mixed. She would like rx's for these medications to start with positive test. Discussed reasons to call. She would like serial HCG levels and early pelvic US with next . Discussed limitations with pelvic ultrasound with early . Darryl Adkins DO Medical Decision Making: Problems: Moderate: New problem with uncertain prognosis Data: Unique test result(s) reviewed: 3+ Unique test(s) ordered: 1 Risk: Moderate: Drug management Medical Decision Making Level: 4 - Moderate Allergies As of Date: 02/16/2024 (No Known Allergies) Date Reviewed: 02/16/2024 Reviewed by: Jeanne Espinosa MA - Fully Assessed Reason for Visit: New Patient [172] Cmt: Preconception counseling Primary Visit Diagnosis:History of miscarriage [Z87.59] Order(s):PELVIC US WHI [6437288] Order #: [id number]: 1 FUTURE aspirin 81 mg capTake 81 mg by mouth once daily. Starting with positive test.Disp: 30 capsuleRfl: 1 progesterone micronized (PROMETRIUM) 200 mg capsuleUse 1 capsule vaginally daily at bedtime. Starting with positive test.Disp: 30 capsuleRfl: 1 Prescriptions as of 02/16/2024 - aspirin 81 mg cap Take 81 m (more content not included)... Normal [facility] 36on 02-02-2024 36 ----- Message from CHARISMA Matthew CNP sent at 02/02/2024 3:27 PM EDT ----- Protein S total mildly elevated, but free antigen is within normal range. Negative Factor 5 Leiden Mutation. Negative prothrombin factor mutation. Left a message to return call. Patient viewed on [employer]. Sent [employer] message as well. Normal [facility] 36on 01-21-2024 36 Patient made it to appointment [facility] Office Visiton 01-21-2024 Follow-up visit [id number] KeshiaPradeepAlon C 2000 F Date Provider Department Center 01/21/2024 71769-THLWOERIN SINGH [facility] Family History Problem Relation Age of Onset Diabetes Mother Depression Mother Diabetes Father Family Status - Relation Status Age at Mother Father Level of Service:00631 AL OFFICE/OUTPATIENT ESTABLISHED MOD MDM 30 MIN Reason for Visit and Comments: Health Maintenance [872] - HIV/HEP C screen- declines(thinks she's had done) HPV- declines Tdap- declines Covid- not done/does not want Flu- declines Recurrent Miscarriage [661886] - Patient states that 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 Cruz in [place], feels like she is getting the run around with answers. Blood Work [210020] [facility] Progress Noteon 01-21-2024 Progress Note 01/21/2024 Alon Schmitt (: 2000) is a 23 y.o. female , Established patient, here for evaluation of the following chief complaint(s): Health Maintenance (HIV/HEP C screen- declines(thinks she's had done) /HPV- declines /Tdap- declines /Covid- not done/does not want /Flu- declines ), Recurrent Miscarriage (Patient states that 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 Cruz in [place], feels like she is getting the run around with answers. ), and Blood Work ASSESSMENT/PLAN: 1. History of multiple miscarriages - Protein S, total and free - Factor 5 leiden - LUPUS ANTICOAGULANT EVALUATION WITH REFLEX ([facility]KR [facility]) - Prothrombin gene mutation - TSH - T4, free - T3, free - CBC auto differential - Comprehensive metabolic panel - Protein C activity - Fibrinogen - Estrogens, total - Follicle stimulating hormone - Luteinizing hormone - Prolactin - Lipid panel - Hemoglobin A1c - Requested blood work ordered. Will notify of results. - Follow up with [facility] Tender as directed. 2. Amenorrhea - Protein S, total and free - Factor 5 leiden - LUPUS ANTICOAGULANT EVALUATION WITH REFLEX ([facility]KR [facility]) - Prothrombin gene mutation - TSH - T4, free - T3, free - CBC auto differential - Comprehensive metabolic panel - Protein C activity - Fibrinogen - Estrogens, total - Follicle stimulating hormone - Luteinizing hormone - Prolactin - Lipid panel - Hemoglobin A1c - Requested blood work ordered. Will notify of results. - Follow up with Lever Tender as directed. 3. Morbid obesity with BMI of 45.0-49.9, adult (HCC) - TSH - T4, free - T3, free - CBC auto differential - Comprehensive metabolic panel - Estrogens, total - Follicle stimulating hormone - Luteinizing hormone - Prolactin - Will notify of blood work results. 4. Mild episode of recurrent major depressive disorder (HCC) - TSH - T4, free - T3, free - CBC auto differential - Comprehensive metabolic panel - Stable off of Prozac. 5. Anxiety - TSH - T4, free - T3, free - CBC auto differential - Comprehensive metabolic panel - Stable off of Prozac. 6. Screening for lipoid disorders - Lipid panel - Will notify of blood work results. 7. Screening for diabetes mellitus - Comprehensive metabolic panel - Hemoglobin A1c - Will notify of blood work results. 8. Encounter for screening for HIV - HIV-1 and HIV-2 Antigen-Antibody Screen - Will notify of blood work results. 9. Need for hepatitis C screening test - Hepatitis C antibody - Will notify of blood work results. 10. Influenza vaccine refused Follow up in about 1 year (around 01/20/2025) for annual physical. SUBJECTIVE/OBJECTIVE : HPI Malini Fernándezis presents today to discuss concerns regarding multiple miscarriages within the past 3 months. Had a miscarriage with a D&C on 11/20/23 and had another miscarriage on 12/31/23. Has followed up with Dr. Niru Cruz (Lever Tender) in [place] but feels like she is getting the run around and is not getting any answers. Will be following up with another Lever Tender. Has been attempting to conceive since last January- will be a year next month. Has not had any workup done outside of the ultrasound. Was wanting some workup done to look into why she is having difficulty conceiving and not losing the baby and felt like the provider was pushing back on getting this done. She has a list of blood tests she would like drawn today for further evaluation. Has been off of her Prozac for about 1 year and states she is doing well. Would like to remain off of medication. Denies suicidal ideations. Health Maintenance: Declines a flu vaccine. Would like screening for HIV and Hep C. Declines to be vaccinated for HPV. Declines a Tdap vaccination. Declines to be vaccinated for COVID-19. Pap: 04/05/22. Would like to have her cholesterol levels checked. Review of Systems Constitutional: Negative for chills and fever. Respiratory: Negative for chest tightness and shortness of breath. Cardiovascular: Negative for chest pain. Gastrointestinal: Negative for abdominal distention and abdominal pain. Genitourinary: Positive for menstrual problem. Negative for pelvic pain, vaginal bleeding, vaginal discharge and vaginal pain. Vitals: 01/21/24 1318 01/21/24 1357 BP: (!) 142/86 128/82 Pulse: 103 SpO2: 98% Weight: 278 lb 12.8 oz (126 kg) Height: 5' 3 (1.6 m) Body mass index is 49.39 kg/m?. Patient's last menstrual period was 09/06/2023 (approximate). Last 3 LESLIE-7 Scores No data found in the last 10 encounters. Last 3 PHQ-2 Scores No data found in the last 10 encounters. Last 3 PHQ-9 Scores No data found in the last 10 encounters. Physical Exam Constitutional: General: She is not in acute distress. Appearance: She is obese. She is not ill-appearing or diaphoretic. Neck: Vascular: No carotid bruit. Cardiovascular: Rate and Rhythm: Normal rate and regular rhythm. Pulses (more content not included)... Normal [facility] Progress Note Patient verified by last name and . Normal [facility] hCG Titer Quant., Serumon HCG QUANT. < 1 Normal 1-3 [facility] Comment on above: Result Comment: hCG levels with Gestational Age Gestational Age hCG mIU/mL (IU/L) 0.2 - 1 week 5 - 50 1-2 weeks 50 - 500 2-3 weeks 100 - 5000 3-4 weeks 500 - 37521 4-5 weeks 1000 - 43656 5-6 weeks 65799 - 100,000 6-8 weeks 06008 - 200,000 2-3 months 36890 - 100,000 Performed By: #### L 700.8000 #### [facility] [address] [place], [address] hCG Titer Quant., Serumon HCG QUANT. 7 mIU/mL [facility] 1-3 [facility] Comment on above: Performed By: #### L 700.8000 #### [facility] [address] [place], [address] hCG Titer Quant., Serumon HCG QUANT. 16 mIU/mL [facility] [address] [place] [address] Comment on above: Result Comment: hCG levels with Gestational Age Gestational Age hCG mIU/mL (IU/L) 0.2 - 1 week 5 - 50 1-2 weeks 50 - 500 2-3 weeks 100 - 5000 3-4 weeks 500 - 43320 4-5 weeks 1000 - 37982 5-6 weeks 30981 - 100,000 6-8 weeks 44703 - 200,000 2-3 months 60014 - 100,000 Performed By: #### L 108.8000 #### [facility] [address] [place] [place], [address] Lever Tender Office Visit Reporton 12-08-2023 Lever Tender Office Visit Report [facility] [address] [place], [place] [address] OFFICE VISIT Date of Service: 12/08/23 MR#: [id number] Acct: [id number] Name: ALON SCHMITT Rep #: [id number] : 2000 Provider: Dr. 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 Niru Gibson DO) Status post dilation and curettage [place] teeth extracted History of cholecystectomy Family History Mother Diabetes, Onset Age: 35 Type 2 Father Diabetes, Onset Age: 40 Type 2 Grandfather Heart disease Paternal Grandmother Diabetes Paternal Social History adopted: No household members: spouse current occupational status: employed current occupation: [employer] current occupational exposures/hazards: No pets and animals: Yes pets and animals: dog(s) history of recent travel: No sexually active: Yes Smoking Status: Never smoker alcohol intake: never substance use type: does not use well-balanced diet: daily or most days caffeine: No eating out: 1-3 times/week during the past year weight has: increased > 10 lbs what type of physical activity do you participate in: walking and other details: yard work frequency: 1-2 times per week duration: 30-45 minutes/day kenyetta/congregation: Denominational seatbelt use: always do you feel safe at home: Yes 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 pathology was benign. History 1 Elective abortions Hx Para 0 Spontaneous abortions 1 Hx # Term Pregnancies Ectopic pregnancies Hx # Pregnancies Multiple births # of living children ROS Const ROS Unobtainable: All systems reviewed are unremarkable except as noted in H Resp Resp: Reports system reviewed and no additional complaints, except as documented; Denies cough GI GI: Reports as per HPI Psych Psych: Reports system reviewed and no additional complaints, except as documented Exam Const General: cooperative, healthy appearing, comfortable and no acute distress Resp Effort Inspection: normal respiratory effort Skin General: no rashes or lesions noted Psych Appearance: grossly normal Speech and Movement: speech and movement normal Coding Level of Care Code Off vis,est,level 3 Diagnoses Status post dilation and curettage Z98.890 Assessment and Plan Assessment and Plan (1) Status post dilation and curettage: Status: Acute Plan: recommend taking pnv now with folic acid or folate (800mcg) ok to start trying again for another baby. all questions answered. plan is for her to call us when she is and order 6-7 week ultrasound at hospital 12/08/23 1015 Date Niru Eugene Signature: Date (if applicable) CC: Normal [facility] [id number] 11-20-2023 ABO and Rh group Nom (Bld) Blood group AB Rh(D) positive Normal [facility] Comment on above: Performed By: #### L 700.8000, B882-1, L100.0100 #### [facility] [address] [facility] [place], [address] CBC W/Diff, Automatedon 10-27 Absolute Lymph 2.22 X10 3/uL Normal 0.83-4.51 [facility] Comment on above: Performed By: #### L 700.8000, B882-1, L100.0100 #### [facility] [address] [place], [address] Absolute Neut 5.5 X10 3/uL Normal 2.0-7.7 [facility] Comment on above: Performed By: #### L 700.8000, B882-1, L100.0100 #### [facility] [address] [place], [address] Basophils/100 WBC (Bld) 0.9 % Normal 0-1 [facility] Comment on above: Performed By: #### L 700.8000, B882-1, L100.0100 #### [facility] [address] [place], [address] Eosinophils/100 WBC (Bld) 2.2 % Normal 0-5 [facility] Comment on above: Performed By: #### L 700.8000, B882-1, L100.0100 #### [facility] [address] [place], [address] Erythrocyte distribution width (RBC) [Ratio] 12.9 % Normal 11.6-14.6 [facility] Comment on above: Performed By: #### L 700.8000, B882-1, L100.0100 #### [facility] [address] [place], [address] Hematocrit (Bld) [Volume fraction] 43.3 % Normal 37-47 [facility] Comment on above: Performed By: #### L 700.8000, B882-1, L100.0100 #### [facility] [address] [place], [address] Hemoglobin (Bld) [Mass/Vol] 14.6 g/dL Normal 12.0-15.0 [facility] Comment on above: Performed By: #### L 700.8000, B882-1, L100.0100 #### [facility] [address] [place], [address] IG% 0.600 Normal 0.0-0.9 [facility] Comment on above: Result Comment: IG% - Immature Granulocytes (promyelocytes, myelocytes and metamyelocytes) > 1% indicates that a LEFT SHIFT is Present. Performed By: #### L 700.8000, B882-1, L100.0100 #### [facility] [address] [place], [address] Lymphocytes/100 WBC (Bld) 25.9 % Normal 19-41 [facility] Comment on above: Performed By: #### L 700.8000, B882-1, L100.0100 #### [facility] [address] [place], [address] MCH (RBC) [Entitic mass] 27.7 pg Normal 27.0-32.0 [facility] Comment on above: Performed By: #### L 700.8000, B882-1, L100.0100 #### [facility] [address] [place], [address] MCHC (RBC) [Mass/Vol] 33.7 g/dL Normal 32-[address] [facility] Comment on above: Performed By: #### L 700.8000, B882-1, L100.0100 #### [facility] [address] [place], [address] MCV (RBC) [Entitic vol] 82.2 fL Normal 81-99 [facility] Comment on above: Performed By: #### L 700.8000, B882-1, L100.0100 #### [facility] [address] [place], [address] Monocytes/100 WBC (Bld) 6.0 % Normal 0-10 [facility] Comment on above: Performed By: #### L 700.8000, B882-1, L100.0100 #### [facility] [address] [place], [address] Neutrophils/100 WBC (Bld) 64.4 % Normal 47-70 [facility] Comment on above: Performed By: #### L 700.8000, B882-1, L100.0100 #### [facility] [address] [place], [address] Nucleated RBC (Bld) [#/Vol] 0 10*3/uL Normal 0-5 [facility] Comment on above: Performed By: #### L 700.8000, B882-1, L100.0100 #### [facility] [address] [place], [address] Platelet mean volume (Bld) [Entitic vol] 9.4 fL Normal 6.2-12.0 [facility] Comment on above: Performed By: #### L 700.8000, B882-1, L100.0100 #### [facility] [address] [place], [address] Platelets (Bld) [#/Vol] 344 10*3/uL Normal 150-450 [facility] Comment on above: Performed By: #### L 700.8000, B882-1, L100.0100 #### [facility] [address] [place], [address] RBC (Bld) [#/Vol] 5.27 10*6/uL Normal 4.2-5.4 [facility] Comment on above: Performed By: #### L 700.8000, B882-1, L100.0100 #### [facility] [address] [place], [address] RDW SD 38.5 fl Normal 35.1-43.9 [facility] Comment on above: Performed By: #### L 700.8000, B882-1, L100.0100 #### [facility] [address] [place], [address] WBC (Bld) [#/Vol] 8.6 10*3/uL Normal 4.4-11.0 [facility] Comment on above: Performed By: #### L 700.8000, B882-1, L100.0100 #### [facility] [address] [place], [address] Discharge Instructionon 10-27 Discharge Instruction [facility] Medical Records Department [address] [place] [address] Instructions for Home/Discharge Instructions 11/20/23 0833 MR#: [id number] Acct: [id number] Name: ALON SCHMITT Rep #: [id number] : 2000 From: Niru Gibson DO PCP: DANYEL Matthew Status[place] [facility] [place] Discharge Instructions Diet Discharge Diet: No restrictions Activity Discharge Activity: Return to Normal Activity, May Shower and May Take a Tub Bath (after 1 week) May resume sexual activity in: 1-2 weeks Weight Bearing Status: Weight bearing as tolerated Lifting Restrictions: none Dressing / Incision Call your doctor if you observe: Fever of 101 or Higher, Using more than 1 pad per hour, Shortness of breath and Uncontrolled pain Follow Up Care Please Follow Up With: Niru Gibson DO When: Call [phone] to schedule appointment. Test Results: Test results from this visit will be discussed in further detail at your follow-up appointment, if applicable. Discharge Plan Admission Attending Provider: Niru Gibson Primary Care Provider: Erin Singh NP Instructions Print Language: Burundian Discharge Orders/Prescriptions Prescriptions: No Action PNV-DHA 27 mg iron-1 mg -300 mg capsule 1 cap PO DAILY Referrals / Follow Up: Erin Singh NP, BANK COMPLIANCE OFFICER-C [Primary Care Provider] - Disposition Disposition (needs filled in before D/C Order can be placed): Home, Self Care 11/20/23832 Niru Gibson DO CC: LINOC Erin Singh Signed Normal [facility] Emergency Department Summary on 11-20-2023 Emergency Department Summary [facility] Medical Records Department [address] [place] [address] Emergency Department Summary 11/20/23 MR#: [id number] Acct: [id number] Name: ALON SCHMITT Rep #: [id number] : 2000 23 From: Niru Silvestre MD PCP: DANYEL Matthew Status:[facility] Location: [place] [address] HPI HPI - Female History of Present Illness Chief Complaint: Vag Bld, Preg Informant: patient Narrative Narrative: Patient present secondary to miscarriage. She states that she has been spotting for the past week. Her OB told her she had a missed miscarriage. She was supposed to have a repeat ultrasound later this morning to see how much tissue of any she had passed. She started bleeding about an hour ago and passing large clots with a lot of cramping. [facility] Medical History (Updated 11/20/23 @ 08:[address] Niru Silvestre MD) Anxiety Home Medications ???Medication ???Instructions ???Recorded ???Last Taken ???Type multivitamin no.47-iron fum 27 1 cap PO DAILY 11/04/23 Unknown History mg-folate no.1 1 mg-dha 300 mg capsule (PNV-DHA) Allergy/AdvReac Type Severity Reaction Status Date / Time No Known Allergies Allergy Verified 11/20/23 05:27 Family History Mother Diabetes, Onset Age: 35 Type 2 Father Diabetes, Onset Age: 40 Type 2 Grandfather Heart disease Paternal Grandmother Diabetes Paternal Surgical History [place] teeth extracted History of cholecystectomy Social History adopted: No household members: spouse current occupational status: employed current occupation: [employer] current occupational exposures/hazards: No pets and animals: Yes pets and animals: dog(s) history of recent travel: No sexually active: Yes Smoking Status: Never smoker alcohol intake: never substance use type: does not use well-balanced diet: daily or most days caffeine: No eating out: 1-3 times/week during the past year weight has: increased > 10 lbs what type of physical activity do you participate in: walking and other details: yard work frequency: 1-2 times per week duration: 30-45 minutes/day kenyetta/congregation: Denominational seatbelt use: always do you feel safe at home: Yes 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 ROS ROS ED Constitutional Constitutional ED: Denies chills or fever(s) Eyes Eyes: Denies discharge from eye(s) ENT ENT ED: Denies discharge from eye(s), rhinorrhea or sore throat Cardiovascular Cardiovascular: Denies chest pain or palpitations Respiratory/Chest Respiratory/Chest: Denies cough or dyspnea Gastrointestinal Gastrointestinal: Reports abdominal pain; Denies diarrhea, nausea or vomiting Genitourinary Genitourinary ED: Denies dysuria Musculoskeletal Musculoskeletal: Denies back pain or extremity pain Integumentary Denies Abrasions or rash Neurologic Neurologic: Denies headache(s) or weakness Psychiatric Psychiatric: Denies anxiety or depression Allergic/Immunologic Allergic/Immunologic ED: Denies lip swelling or urticaria EXAM Physical Exam Const Vital Signs: 11/20/23 05:27 11/20/23 07:20 Temperature 97.1 F L Temperature Source Oral Pulse Rate 111 H 96 Respiratory Rate 16 18 Blood Pressure 182/84 H 140/96 H Blood Pressure Mean 116 110 Pulse Ox 98 100 Oxygen Delivery Method Room Air Room Air Positive well nourished and well developed General Appearance ED: well developed HEENT Reports moist mucous membranes Eyes EOMs intact bilaterally Chest Wall inspection of chest normal and palpation of chest normal Resp normal respiratory effort and clear to auscultation bilaterally Cardio regular rate and regular rhythm GI GI Narrative: Abdomen soft with lower abdominal tenderness to palpation. No guarding or rebound. Extremity normal to inspection Neuro oriented x3 and no sensory deficits noted Motor Exam: strength 5/5 throughout Psych Mood Affect: anxious Skin no rashes or lesions noted MDM MDM MDM Narrative Medical decision making narrative: Abdomen initiated. Labwork obtained to evaluate for leukocytosis, anemia, and electrolyte derangement. ABO blood type will be sent. Patient given IV fluids, morphine, and Zofran. I spoke with Dr. Amador early in the patient's course. She would like a formal ultrasound and update her with results when available. History Record Review Discussion w/independent historian: Patient Additional record(s) reviewed:: Prior outpatient record and Prior labs Lab Data Attestation: I reviewed the patient's lab results. Labs: Laboratory Results - last 24 hr 11/20/23 05:35 WBC 8.6 RBC (more content not included)... Normal [facility] H AND P Exam - OB/GYNon 10-27 H&P Exam - MUCK HAULER [facility] Medical Records Department [address] [place] [address] H P Exam - MUCK HAULER 11/20/23826 MR#: [id number] Acct: [id number] Name: ALON SCHMITT Rep #: [id number] : 2000 23 From: Niru Gibson DO PCP: DANYEL Matthew Status:[place] [facility] [place] Location: [place] [address] HPI - General HPI Narrative ALON SCHMITT, is a 23 y/o @ approximately 7 weeks gestation who presents to [facility] ER with heavy bleeding and severe pain. SHe was given cytotec to help facilitate an incomplete . Ultrasound shows that the is not in the lower uterine segment. Her bleeding is reported as brisk but her hg is stable. She is requesting dilaudid and has been given that in the ER. She would like to proceed with a suction dilation and curettage. Maternal Data Information LUIS Calculator Estimated Delivery Date Method Current WG Current Estimate 06/12/24 LMP (Certain) 10w 5d [facility] Medical History Anxiety Home Medications ???Medication ???Instructions ???Recorded ???Last Taken ???Type multivitamin no.47-iron fum 27 1 cap PO DAILY 11/04/23 Unknown History mg-folate no.1 1 mg-dha 300 mg capsule (PNV-DHA) Allergy/AdvReac Type Severity Reaction Status Date / Time No Known Allergies Allergy Verified 11/20/23 05:27 Family History Mother Diabetes, Onset Age: 35 Type 2 Father Diabetes, Onset Age: 40 Type 2 Grandfather Heart disease Paternal Grandmother Diabetes Paternal Surgical History [place] teeth extracted History of cholecystectomy Social History adopted: No household members: spouse current occupational status: employed current occupation: [employer] current occupational exposures/hazards: No pets and animals: Yes pets and animals: dog(s) history of recent travel: No sexually active: Yes Smoking Status: Never smoker alcohol intake: never substance use type: does not use well-balanced diet: daily or most days caffeine: No eating out: 1-3 times/week during the past year weight has: increased > 10 lbs what type of physical activity do you participate in: walking and other details: yard work frequency: 1-2 times per week duration: 30-45 minutes/day kenyetta/congregation: Denominational seatbelt use: always do you feel safe at home: Yes 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 History 1 Elective abortions Hx Para 0 Spontaneous abortions Hx # Term Pregnancies Ectopic pregnancies Hx # Pregnancies Multiple births # of living children Visit Details Expected Delivery Route/Plan Labor Preferences- CB/BF classes: [] labor support person: [] labor intervention preferences: [] pain management options preferred: [] cut cord/dad catch: [] : [] PP control planned: [] discussed possible routes of delivery and associated risks: [] special requests: [] Plans Covid status: [] Flu vaccine: [] Tdap vaccine: [] Rhogam: [] LARC form signed: [] Problem list reviewed and updated with the most current plan of care details and appropriate orders placed. Relevant counseling for the gestational age provided. Continue routine care and follow up unless otherwise noted in visit notes/problem list details OB Flowsheet Initial Weight: 277 lb Date -???-???-???-???-??? -???-???-???-???-??? -???-???- EGA Weight BP Urine Prot -???-???-???-???-??? -???-???-???-???-??? -???-???- Glucose FHR FuHt Pres Dilation -???-???-???-???-??? -???-???-???-???-??? -???-???- Effaced St Visit Note 11/11/23 -???-???-???-???-??? -???-???-???-???-??? -???-???- 9w 3d 277 lb (+0 oz) 147/88 -???-???-???-???-??? -???-???-???-???-??? -???-???- -???-???-???-???-??? -???-???-???-???-??? -???-???- KW-CRL 6mm t lena. FHT not visualized. JV scanned and agrees with assessment. Plan HCGs and repeat US in 1 week. wants NIPT and carrier if viable ROS Constitutional Constitutional: Denies change in weight, fatigue, fever(s), headache(s), poor appetite or weakness Eyes Eyes: Denies blurry vision, change in vision, seeing flashes or spots in vision ENT HEENT: Denies dizziness, headache(s), loss taste/smell or sore throat Cardiovascular Cardiovascular: Denies chest pain, dizziness, dyspnea, irregular heart rhythm, leg edema, palpitations, rapid heart rate or vomiting Respiratory/Chest Respiratory/Chest: Denies chest tightness, cough, dyspnea or breast pain Gastrointestinal Gastrointestinal: Denies abdominal pain, anorexia, constipation, diarrhea, hemorrhoids, vomiting or weight changes Genitourinary (more content not included)... Normal [facility] MR/POSTOP.ANEon 11-20-2023 MR/POSTOP.[facility] Medical Records Department [address] [place] [address] Anesthesia Postop Eval I 11/20/23 0939 MR#: [id number] Acct: [id number] Name: ALON SCHMITT Rep #: [id number] : 2000 23 From: Moy Pena PCP: DANYEL Matthew Status:REG SDC Y Race: C [facility] Anesthesia: Postop Eval I Current Vital Signs Temperature: 99.1 F Pulse Rate: 88 Blood Pressure: 142/95 Respiratory Rate: 18 Pulse Ox: 98 Oxygen Delivery Method: Room Air Assessment Airway patent: Yes Spontaneous unlabored respirations: Yes Mental status: Awake and Calm nausea: No Vomiting: No Anesthesia Complication: No Fluid Hydration Crystalloid volume administer (ml): 1,200 Total IV fluid infused: 1,200 Progress Note Anesthesia document: Postop Eval 1 completed: Yes 11/20/23939 Date Moy Payne Signature: Date CC: Signed Normal [facility] MR/[id number] 11-20-2023 [facility] Medical Records Department [address] [place] [address] Anesthesia Postop Eval II 11/20/2346 MR#: [id number] Acct: [id number] Name: ALON SCHMITT Rep #: [id number] : 2000 23 From: Russ Harding MD PCP: DANYEL Matthew Status:[place] [facility] [place] Y Race: C [facility] Anesthesia Postop Eval I Sum Postop Eval Completion status Anesthesia document: Postop Eval 1 completed: Yes Anesthesia Postop Eval I Summary Anesthesia Postop Eval I Summary: Anesthesia Postop Eval I: Assessment Summary Airway patent Yes 11/20/23 09:40 [email or web address] Spontaneous unlabored Yes 11/20/23 09:40 [email or web address] respirations Mental status Awake,Calm 11/20/23 09:40 [email or web address] nausea No 11/20/23 09:40 [email or web address] Vomiting No 11/20/23 09:40 [email or web address] Anesthesia Postop Eval I: Fluid Summary Crystalloid volume administer 1,200 11/20/23 09:40 [email or web address] (ml) Colloids volume administered ( ml) Blood Product volume administered (ml) Total IV fluid infused 1,200 11/20/23 09:40 [email or web address] Anesthesia Postop Eval I: Summary Notes Anesthesia Complication No 11/20/23 09:40 [email or web address] Anesthesia Complication Comment: Post-operative progress note Anesthesia: Postop Eval II Evaluation Mental status: Awake Pain Level: 0 nausea: No Vomiting: No Complications Anesthesia Complication: No 11/20/23 0947 Date Russ Payne Signature: Date CC: Signed Normal [facility] Operative Reporton 4 Operative Report [facility] Medical Records Department [address] [place] [address] Operative Report 11/20/23910 MR#: [id number] Acct: [id number] Name: KESHIAALON Rep #: [id number] : 2000 23 From: Niru Gibson DO PCP: DANYEL Matthew Status:[facility] Location: [place] [address] Problems Associated Problem List Diagnoses (1) Incomplete : Report of Operation Date of Procedure: 11/20/23 Pre-Operative Diagnosis: incomplete , 7 weeks gestation Post-Operative Diagnosis: incomplete , 7 weeks gestation Surgery/Procedure Performed:: suction dilation and curettage Description of Surgical Findings:: POC mostly in the cervix Surgeon: Niru Gibson costume specialist: None Type of Anesthesia: MAC and Topical Anesth Specimen's removed: products of conception Drains: none Estimated Blood Loss (mL): 50 Description of Procedure: Patient was taken to the operating room and placed under MAC local anesthesia. She was prepped and draped in the normal sterile fashion the dorsal lithotomy position. Bladder was drained of clear urine and anterior lip of the cervix was grasped and the uterus sounded to []. Cervix was progressively dilated to allow passage of a size 7 suction curette. Progressive passes were made removing the retained products of conception without complication. Sharp curettage confirmed complete removal of the retained products. All instruments were removed from the vagina and excellent hemostasis was noted and the patient was taken to recovery in stable condition. Procedure Start Time: 09:02 Procedure Stop Time: 09:11 Complications none Admit VTE Documentation VTE Present on Admission: Yes VTE Mechan Device Prophylaxis: SCD's Multi Select Codes Urinary/Genital Urinary/Genital CPT Codes: 12348 Surg Trtmt missed Ab 1TM 11/20/23 0913 Cosigner Signature (if applicable): CC: DANYEL Singh; Dr. Niru Gibson DO Signed Normal [facility] Surgery Specimen Level Henry 11-20-2023 Surgery Specimen Level IV Patient Age/Sex Location Account Attending Physician ALON SCHMITT / [facility] [place] [id number] Zeina Gifford Specimen: [id number] Received: 11/20/23 Status: JOSHUA Harp Num: [id number] Spec Type: PROD CONC Subm Dr: Dr. Niru Gibson, DO HEADER OPERATION: D C, suction PRE-OP DIAGNOSIS: Incomplete , bleeding in early TISSUE SUBMITTED: Products of conception MICROSCOPIC DIAGNOSIS Endometrium, curettage: Chorionic villi, decidualized stroma and trophoblastic cells (products of conception). AM: 11/21/2023 MICROSCOPIC DESCRIPTION Slides are reviewed. GROSS DESCRIPTION Received in fixative is one container labeled with the patient's name and designated Products of conception. The specimen consists of multiple fragments of hemorrhagic soft tissue measuring in aggregate 5.5 x 5.5 x 1.5cm. tissue is not identified. Asphalt Paving Supervisor tissue is submitted in three cassettes. / 11/20/2023 TC:5 CPT:68915 Patient Age/Sex Location Account Attending Physician ALON SCHMITT 23/[facility] [id number] Zeina Gifford Signed (signature on file) Dr. Damien Platt, DO 11/21/23 1343 Normal [facility] Comment on above: Performed By: #### L 700.8000, B882-1, L100.0100 #### [facility] [address] [facility]. [place], [place], [address] Transvaginal w/Preg USon Transvaginal w/Preg US [facility] Imaging Services [address] [place], [place] [address] Transvaginal w/Preg US MR#: [id number] Acct: [id number] Name: ALON SCHMITT Rep #: [id number] : 2000 F 23 From: Shira Larose MD PCP: DANYEL Matthew Status: [facility] Study: Transvaginal w/Preg US Date of Exam: 11/20/23 Exam# [id number] Ordering Dr: Niru Silvestre MD [id number] STUDY: FIRST TRIMESTER OBSTETRICAL ULTRASOUND REASON FOR EXAM: Female, 23 years old patient with miscarriage and abnormal vaginal bleeding. LMP: Unknown. TECHNIQUE: Transvaginal TECHNICAL QUALITY: Adequate. PRIOR ULTRASOUND: None. FINDINGS: There is a abnormal appearing gestational sac in the lower uterine segment. There is no demonstrated yolk sac. The placenta is non-visualized. There is no demonstrated embryo ( pole). The estimated gestation age (EGA) by LUIS is 10 weeks, 5 days. The estimated date of delivery (LUIS) is June 12, 2024. The uterus measures 9.9 x 4.7 x 5.9 cm. There is no demonstrated uterine fibroid. The cervix is closed. The right ovary measures 1.5 x 2.7 x 1.8 cm. There is no right ovarian cyst. There is no visualized right adnexal mass or complex lesion. The left ovary measures 2.4 x 1.6 x 2.9 cm.. There is no left ovarian cyst. There is no visualized left adnexal mass or complex lesion. There is no fluid in the cul de sac. US/Transvaginal w/Preg US IMPRESSION: Findings suggest impending spontaneous with retained products of conception in the lower uterine segment. Electronically Signed: Shira Larose MD at 7:54 EDT Reading Location ID and State: [address] [place] [address] , Service support , CC: DANYEL Singh; Dr. Niru Silvestre MD Credit Risk Analytics Manager: Signed Normal [facility] hCG Titer Quant., Serumon HCG QUANT. 4774 mIU/mL High 1-3 [facility] Comment on above: Result Comment: hCG levels with Gestational Age Gestational Age hCG mIU/mL (IU/L) 0.2 - 1 week 5 - 50 1-2 weeks 50 - 500 2-3 weeks 100 - 5000 3-4 weeks 500 - 81503 4-5 weeks 1000 - 84395 5-6 weeks 41649 - 100,000 6-8 weeks 80751 - 200,000 2-3 months 67346 - 100,000 Performed By: #### L 700.8000, B882-1, L100.0100 #### [facility] [address] [place], [address] Chlamydia/GC GUS aptimaon CHLAMY,NUC ACID Negative Normal Negative [facility] Comment on above: Performed By: #### L 700.8000, B882-1, L100.0100 #### [facility] [address] [place], [address] GC BY NUC ACID Negative Normal Negative [facility] Comment on above: Result Comment: Perf ormed at: =G - [facility] [address] [id number] Ethylbenzene Converter Operator: Tabatha Saravia MD, Phone: [phone] Performed By: #### L 700.8000, B882-1, L100.0100 #### [facility] [address] [place], [place], [address] hCG Titer Quant., Serumon HCG QUANT. 43716 mIU/mL High 1-3 [facility] Comment on above: Result Comment: hCG levels with Gestational Age Gestational Age hCG mIU/mL (IU/L) 0.2 - 1 week 5 - 50 1-2 weeks 50 - 500 2-3 weeks 100 - 5000 3-4 weeks 500 - 55352 4-5 weeks 1000 - 97296 5-6 weeks 31523 - 100,000 6-8 weeks 14230 - 200,000 2-3 months 57961 - 100,000 Performed By: #### L 700.8000 #### [facility] [address] [place], [address] Urine Cultureon 11-12-2023 URC Culture exhibits no growth. Normal [facility] Comment on above: Performed By: #### L 700.8000, B882-1, L100.0100 #### [facility] [address] [place], [address] Lever Tender Office Visit Reporton 11-11-2023 Lever Tender Office Visit Report [facility] [address] [place] [address] OFFICE VISIT Date of Service: 11/11/23 MR#: [id number] Acct: [id number] Name: ALON SCHMITT Rep #: [id number] : 2000 Provider: CLAIRE Grossman ams Age/Sex: 23/F [place] [facility] [place]: Signed Intake Vital Signs 11/11/23 15:08 Height 5 ft 3 in Weight: 277 lb BMI 49.0 BP 147/88 H Intake Visit Reasons: LMP 09/05 Costume Shop Coordinator Required: No Is patient in pain?: No Allergies No Known Allergies Allergy (Verified 11/11/23 15:05) Medications ???Medication ???Instructions ???Recorded ???Confirmed ???Type multivitamin no.47-iron fum 27 cap PO 11/04/23 11/11/23 History mg-folate no.1 1 mg-dha 300 mg capsule (PNV-DHA) Last Menstrual Period: 09/06/23 Zika: Zika virus screening: Negative : No PFSH PFSH Surgical History [place] teeth extracted History of cholecystectomy Family History Mother Diabetes, Onset Age: 35 Type 2 Father Diabetes, Onset Age: 40 Type 2 Grandfather Heart disease Paternal Grandmother Diabetes Paternal Social History adopted: No household members: spouse service: No current occupational status: employed current occupation: [employer] current occupational exposures/hazards: No pets and animals: Yes pets and animals: dog(s) history of recent travel: No sexually active: Yes Smoking Status: Never smoker alcohol intake: never substance use type: does not use well-balanced diet: daily or most days caffeine: No eating out: 1-3 times/week during the past year weight has: increased > 10 lbs what type of physical activity do you participate in: walking and other details: yard work frequency: 1-2 times per week duration: 30-45 minutes/day kenyetta/congregation: Denominational seatbelt use: always do you feel safe at home: Yes 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 OB Visit LUIS Calculator Estimated Delivery Date Method Current WG Current Estimate 06/12/24 LMP (Certain) 9w 3d Comments: HIV: Urine Culture: Sequential Screen: NIPT Screen: Estimated Due Date: 06/12/24 Expected Delivery Route/Plan Labor Preferences- CB/BF classes: [] labor support person: [] labor intervention preferences: [] pain management options preferred: [] cut cord/dad catch: [] : [] PP control planned: [] discussed possible routes of delivery and associated risks: [] special requests: [] Specific Issue/Plans Covid status: [] Flu vaccine: [] Tdap vaccine: [] Rhogam: [] LARC form signed: [] Problem list reviewed and updated with the most current plan of care details and appropriate orders placed. Relevant counseling for the gestational age provided. Continue routine care and follow up unless otherwise noted in visit notes/problem list details Initial Weight: 277 lb Date -???-???-???-???-??? -???-???-???-???-??? -???-???- EGA Weight BP Urine Prot -???-???-???-???-??? -???-???-???-???-??? -???-???- Glucose FHR FuHt Pres Dilation -???-???-???-???-??? -???-???-???-???-??? -???-???- Effaced St Visit Note 11/11/23 -???-???-???-???-??? -???-???-???-???-??? -???-???- 9w 3d 277 lb (+0 oz) 147/88 -???-???-???-???-??? -???-???-???-???-??? -???-???- -???-???-???-???-??? -???-???-???-???-??? -???-???- KW-CRL 6mm t lena. FHT not visualized. JV scanned and agrees with assessment. Plan HCGs and repeat US in 1 week. wants NIPT and carrier if viable Menstrual History Last Menstrual Period: 09/06/23 Reported LMP: definite Normal amount/duration: Yes Frequency in days: 28-32 On hormonal BC at conception: No hCG+: 10/07/23 Antepartum Record Genetic Screening: Congenital Heart Defect: Other, Neural Tube Defect: Other, Hemoglobinopathy Or Carrier: Other, Cystic Fibrosis: Other, Chromosome Abnormality: Other, Fahad-Sachs: Other, Hemophilia: Other, Intellectual Disability/Autism: Other, Recurrent Loss/Stillbirth: Other, Other Structural Defect: Other, Other Genetic Disease: Other and Maternal Metabolic Disorder: Other Infection History: Live with someone with TB or Exposed to TB: No, Patient or Partner has history of Genital Herpes: No, Rash or Viral illness since last mentrual period: No, Prior GBS-Infected child: No, History (more content not included)... Normal [facility] hCG Titer Quant., Serumon HCG QUANT. 27499 mIU/mL High 1-3 [facility] Comment on above: Result Comment: hCG levels with Gestational Age Gestational Age hCG mIU/mL (IU/L) 0.2 - 1 week 5 - 50 1-2 weeks 50 - 500 2-3 weeks 100 - 5000 3-4 weeks 500 - 41307 4-5 weeks 1000 - 16075 5-6 weeks 01407 - 100,000 6-8 weeks 05598 - 200,000 2-3 months 79360 - 100,000 Performed By: #### L 700.8000 #### [facility] [address] [place], [place], [id number] Urinalysis macro (dipstick) panel (U)on 09-06-2022 Bilirubin, UA Negative [facility] Glucose, UA Negative [facility] Interpretation and review of laboratory results Abnormal [facility] Ketones, UA Negative [facility] Leukocytes, UA Trace [facility] th Nitrite, UA Negative [facility] pH, UA 6.0 [facility] Protein, UA Negative [facility] Spec Grav, UA 1.015 [facility] Urob[facility], UA 0.2 [facility] MONO Teston 02-15-2019 MONO Test Negative Normal [facility] Comment on above: Performed By: #### M ONO1 #### [facility] [address] [place] [address] MONONUCLEOSIS SCREENon 02-15 Sodium [Moles/Vol] Negative [facility], [place] Test Performed by [facility], [address], [facility] Rapid Flu A AND B, RNAon Rapid Influenza A Not Detected Normal Not Detected [facility] Comment on above: Performed By: #### R PFAB #### [facility] [address] [address] Rapid Influenza B Not Detected Normal Not Detected [facility] Comment on above: Performed By: #### R PFAB #### [address] [address] Rapid influenza A/B antigens on 02-15-2019 INFLUENZA A Not Detected Not Detected NA [facility], [place] INFLUENZA B Not Detected Not Detected NA [facility], [place] Test Performed by [facility] [employer] [facility], [address] , [address], [place] CR Chest PA/LATon 05-15-2018 CR Chest PA/LAT Patient Name: ALON BROWER Diagnostic Radiology Exam Date/Time 05/15/2018 11:59:11 EST Exam CR Chest PA/LAT Ordering Physician MAGALIE MANZANO Accession Number [id number] CPT4 Codes 95271 () Reason For Exam chest pain, trauma Report Examination: PA/Lateral chest Indication: chest pain, trauma Findings: There is no focal consolidation, sizable pleural effusion or pneumothorax. The cardiac silhouette and mediastinum are within normal limits. There is minimal thoracic dextroscoliosis with tiny osteophytes. Impression: No radiographic evidence of acute cardiopulmonary process. Report Dictated on Final Dictating Physician: MD ESTEVES KRIKOR Signed Date and Time: 05/15/2018 12:07 pm Signed by: MD ESTEVES KRIKOR Transcribed Date and Time: 05/15/2018 12:08 Normal [facility] CR Clavicle Complete Lefton 05-15-2018 CR Clavicle Complete Left Patient Name: ALON BROWER Diagnostic Radiology Exam Date/Time 05/15/2018 11:59:11 EST Exam CR Clavicle Complete Left Ordering Physician MAGALIE MANZANO Accession Number [id number] CPT4 Codes 00390 () Reason For Exam trauma, pain Report Examination: Left clavicle two views Indication: trauma, pain Findings: No acute fracture or dislocation is noted. The joint spaces are grossly maintained. The soft tissues are grossly unremarkable. Impression: No acute osseous abnormality. Report Dictated on Final Dictating Physician: MD ESTEVES KRIKOR Signed Date and Time: 05/15/2018 12:07 pm Signed by: MD ESTEVES KRIKOR Transcribed Date and Time: 05/15/2018 12:08 Normal [facility] CR Shoulder 2+ Views Lefton 05-15-2018 CR Shoulder 2+ Views Left Patient Name: ALON BROWER Diagnostic Radiology Exam Date/Time 05/15/2018 11:59:11 EST Exam CR Shoulder 2+ Views Left Ordering Physician MAGALIE MANZANO Accession Number [id number] CPT4 Codes 28585 () Reason For Exam pain Report Examination: Left shoulder three views Indication: pain Findings: The glenohumeral joint and AC joint are grossly unremarkable. No acute fracture or dislocation is noted. The soft tissues of the shoulder are unremarkable. Impression: No acute osseous abnormality. Report Dictated on Final Dictating Physician: MD ESTEVES KRIKOR Signed Date and Time: 05/15/2018 12:06 pm Signed by: MD ESTEVES KRIKOR Transcribed Date and Time: 05/15/2018 12:07 Normal [facility] Vital Signs Date Time Vital Sign Value Performing Clinician Facility 10-18-2024 09:16-0400 Body mass index (BMI) [Ratio] 52.01 kg/m2 Deb Richard CONSTRUCTION RECRUITER.CNM Work Phone: [facility] 10-18-2024 09:16-0400 Body weight 137.44 kg Deb Richard CONSTRUCTION RECRUITER.CNM Work Phone: [facility] 10-18-2024 09:16-0400 Diastolic blood pressure 82 mm[Hg] Deb Richard CONSTRUCTION RECRUITER.CNM Work Phone: [facility] 10-18-2024 09:16-0400 Systolic blood pressure 147 mm[Hg] Deb Richard CONSTRUCTION RECRUITER.CNM Work Phone: [facility] 10-11-2024 10:42-0400 Body mass index (BMI) [Ratio] 51.25 kg/m2 Gita Nation MD Work Phone: [facility] 10-11-2024 10:42-0400 Body weight 135.44 kg Gita Nation MD Work Phone: [facility] 10-11-2024 10:42-0400 Diastolic blood pressure 90 mm[Hg] Gita Nation MD Work Phone: [facility] 10-11-2024 10:42-0400 Systolic blood pressure 142 mm[Hg] Gita Nation MD Work Phone: [facility] 10-07-2024 15:33-0400 Diastolic blood pressure 88 mm[Hg] [facility] 10-07-2024 15:33-0400 Systolic blood pressure 138 mm[Hg] [facility] 10-07-2024 13:37-0400 Diastolic blood pressure 78 mm[Hg] Erin Singh BANK COMPLIANCE OFFICER-C Work Phone: [facility] 10-07-2024 13:37-0400 Heart rate 108 /min Erin Singh BANK COMPLIANCE OFFICER-C Work Phone: [facility] 10-07-2024 13:37-0400 Systolic blood pressure 146 mm[Hg] Erin Singh BANK COMPLIANCE OFFICER-C Work Phone: [facility] 10-07-2024 12:02-0400 Body temperature 98.6 [degF] Erin Singh BANK COMPLIANCE OFFICER-C Work Phone: [facility] 10-07-2024 12:02-0400 Respiratory rate 16 /min Erin Singh BANK COMPLIANCE OFFICER-C Work Phone: [facility] 10-07-2024 11:53-0400 Body height 165.1 cm Erin Singh BANK COMPLIANCE OFFICER-C Work Phone: [facility] 10-07-2024 11:53-0400 Body mass index (BMI) [Ratio] 49.6 kg/m2 Erin Singh BANK COMPLIANCE OFFICER-C Work Phone: [facility] 10-07-2024 11:53-0400 Body weight 135.28 kg Erin Singh BANK COMPLIANCE OFFICER-C Work Phone: [facility] 10-04-2024 09:21-0400 Body mass index (BMI) [Ratio] 50.98 kg/m2 Theo Boyle MD Work Phone: [facility] 10-04-2024 09:21-0400 Body weight 134.72 kg Theo Boyle MD Work Phone: [facility] 10-04-2024 09:21-0400 Diastolic blood pressure 80 mm[Hg] Theo Boyle MD Work Phone: [facility] 10-04-2024 09:21-0400 Systolic blood pressure 133 mm[Hg] Theo Boyle MD Work Phone: [facility] 09-30-2024 10:13-0400 Body mass index (BMI) [Ratio] 50.64 kg/m2 Niru Harrington MD Work Phone: [facility] 09-30-2024 10:13-0400 Body weight 133.81 kg Niru Harrington MD Work Phone: [facility] 09-30-2024 10:13-0400 Diastolic blood pressure 84 mm[Hg] Niru Harrington MD Work Phone: [facility] 09-30-2024 10:13-0400 Systolic blood pressure 139 mm[Hg] Niru Harrington MD Work Phone: [facility] 09-24-2024 14:38-0400 Body mass index (BMI) [Ratio] 50.46 kg/m2 Rachel Mosqueda APRN.CNM Work Phone: [facility] 09-24-2024 14:38-0400 Body weight 133.36 kg Rachel Mosqueda APRN.CNM Work Phone: [facility] 09-24-2024 14:38-0400 Diastolic blood pressure 80 mm[Hg] Rachel Panda CONSTRUCTION RECRUITER.CNM Work Phone: [facility] 09-24-2024 14:38-0400 Systolic blood pressure 137 mm[Hg] Rachel Mosqueda APRN.CNM Work Phone: [facility] 09-21-2024 11:58-0400 Diastolic blood pressure 82 mm[Hg] Niru Harrington MD Work Phone: [facility] Comment on above: demetrius bp average 09-21-2024 11:58-0400 Systolic blood pressure 127 mm[Hg] Niru Harrington MD Work Phone: [facility] Comment on above: demetrius bp average 09-21-2024 08:41-0400 Body mass index (BMI) [Ratio] 50.46 kg/m2 Niru Harrington MD Work Phone: [facility] 09-21-2024 08:41-0400 Body weight 133.36 kg Niru Harrington MD Work Phone: [facility] 09-21-2024 08:41-0400 Heart rate 136 /min Niru Harrington MD Work Phone: [facility] 09-13-2024 19:41-0400 Body height 162.56 cm Erin Singh BANK COMPLIANCE OFFICER-C Work Phone: [facility] 09-13-2024 19:41-0400 Body mass index (BMI) [Ratio] 49.9 kg/m2 Erin Singh BANK COMPLIANCE OFFICER-C Work Phone: [facility] 09-13-2024 19:41-0400 Body weight 131.99 kg Erin Singh BANK COMPLIANCE OFFICER-C Work Phone: [facility] 09-13-2024 19:29-0400 Diastolic blood pressure 69 mm[Hg] Erin Singh BANK COMPLIANCE OFFICER-C Work Phone: [facility] 09-13-2024 19:29-0400 Heart rate 104 /min Erin Singh BANK COMPLIANCE OFFICER-C Work Phone: [facility] 09-13-2024 19:29-0400 Systolic blood pressure 130 mm[Hg] Erin Singh BANK COMPLIANCE OFFICER-C Work Phone: [facility] 09-13-2024 18:16-0400 Body temperature 98.7 [degF] Erin iSngh BANK COMPLIANCE OFFICER-C Work Phone: [facility] 09-13-2024 18:16-0400 Respiratory rate 18 /min Erin Singh BANK COMPLIANCE OFFICER-C Work Phone: [facility] 09-13-2024 18:15-0400 SaO2% (BldA) [Mass fraction] 98 % Erin Singh BANK COMPLIANCE OFFICER-C Work Phone: [facility] 09-10-2024 13:59-0400 Body mass index (BMI) [Ratio] 49.26 kg/m2 Niru Harrington MD Work Phone: [facility] 09-10-2024 13:59-0400 Body weight 130.18 kg Niru Harrington MD Work Phone: [facility] 09-10-2024 13:59-0400 Diastolic blood pressure 78 mm[Hg] Niru Harrington MD Work Phone: [facility] 09-10-2024 13:59-0400 Systolic blood pressure 128 mm[Hg] Niru Harrington MD Work Phone: [facility] 08-27-2024 09:17-0400 Body mass index (BMI) [Ratio] 49.26 kg/m2 Niru Harrington MD Work Phone: [facility] 08-27-2024 09:17-0400 Body weight 130.18 kg Niru Harrington MD Work Phone: [facility] 08-27-2024 09:17-0400 Diastolic blood pressure 84 mm[Hg] Niru Harrington MD Work Phone: [facility] 08-27-2024 09:17-0400 Systolic blood pressure 136 mm[Hg] Niru Harrington MD Work Phone: [facility] 08-03-2024 13:50-0400 Body mass index (BMI) [Ratio] 48 kg/m2 Rachel Mosqueda APRN.CNM Work Phone: [facility] 08-03-2024 13:50-0400 Body weight 128.82 kg Rachel Mosqueda APRN.CNM Work Phone: [facility] 08-03-2024 13:50-0400 Diastolic blood pressure 82 mm[Hg] Rachel Mosqueda APRN.CNM Work Phone: [facility] 08-03-2024 13:50-0400 Systolic blood pressure 135 mm[Hg] Rachel Mosqueda APRN.CNM Work Phone: [facility] 07-27-2024 09:41-0400 Body mass index (BMI) [Ratio] 48.16 kg/m2 Theo Boyle MD Work Phone: [facility] 07-27-2024 09:41-0400 Body weight 129.28 kg Theo Boyle MD Work Phone: [facility] 07-27-2024 09:41-0400 Diastolic blood pressure 82 mm[Hg] Theo Boyle MD Work Phone: [facility] 07-27-2024 09:41-0400 Systolic blood pressure 130 mm[Hg] Theo Boyle MD Work Phone: [facility] 07-27-2024 08:37-0400 Body mass index (BMI) [Ratio] 48.3 kg/m2 [facility] 07-27-2024 08:37-0400 Body weight 129.64 kg [facility] 06-24-2024 09:18-0500 Body mass index (BMI) [Ratio] 47.18 kg/m2 Niru Harrington MD Work Phone: [facility] 06-24-2024 09:18-0500 Body weight 126.64 kg Niru aHrrington MD Work Phone: [facility] 06-24-2024 09:18-0500 Diastolic blood pressure 82 mm[Hg] Niru Harrington MD Work Phone: [facility] 06-24-2024 09:18-0500 Systolic blood pressure 120 mm[Hg] Niru Harrington MD Work Phone: [facility] 05-24-2024 08:05-0500 Body mass index (BMI) [Ratio] 46.64 kg/m2 Faisal Collins APRN.MANAGER CASINO Work Phone: [facility] 05-24-2024 08:05-0500 Body weight 125.19 kg Faisal Collins APRN.MANAGER CASINO Work Phone: [facility] 05-24-2024 08:05-0500 Diastolic blood pressure 80 mm[Hg] Faisal Collins APRN.MANAGER CASINO Work Phone: [facility] 05-24-2024 08:05-0500 Systolic blood pressure 120 mm[Hg] Faisal Collins CONSTRUCTION RECRUITER.MANAGER CASINO Work Phone: [facility] 04-29-2024 09:26-0500 Body mass index (BMI) [Ratio] 46.47 kg/m2 Ankita Carrillo MD Work Phone: [facility] 04-29-2024 09:26-0500 Body weight 124.74 kg Ankita Carrillo MD Work Phone: [facility] 04-29-2024 09:26-0500 Diastolic blood pressure 84 mm[Hg] Ankita Carrillo MD Work Phone: [facility] 04-29-2024 09:26-0500 Systolic blood pressure 122 mm[Hg] Ankita Carrillo MD Work Phone: [facility] 03-22-2024 08:49-0500 Body height 163.8 cm Deb Richard CONSTRUCTION RECRUITER.CNM Work Phone: [facility] 03-22-2024 08:49-0500 Body mass index (BMI) [Ratio] 47.49 kg/m2 Deb Plotchiki CONSTRUCTION RECRUITER.CNM Work Phone: [facility] 03-22-2024 08:49-0500 Body weight 127.46 kg Deb Richard CONSTRUCTION RECRUITER.CNM Work Phone: [facility] 03-22-2024 08:49-0500 Diastolic blood pressure 86 mm[Hg] Deb Richard CONSTRUCTION RECRUITER.CNM Work Phone: [facility] 03-22-2024 08:49-0500 Systolic blood pressure 168 mm[Hg] Deb Plotchiki CONSTRUCTION RECRUITER.CNM Work Phone: [facility] 02-16-2024 09:35-0400 Body mass index (BMI) [Ratio] 49.71 kg/m2 Darryl Adkins MD Work Phone: [facility] 02-16-2024 09:35-0400 Body weight 127.28 kg Darryl Adkins MD Work Phone: [facility] 02-16-2024 09:35-0400 Diastolic blood pressure 80 mm[Hg] Darryl Adkins MD Work Phone: [facility] 02-16-2024 09:35-0400 Systolic blood pressure 128 mm[Hg] Darryl Adkins MD Work Phone: [facility] 01-21-2024 13:57-0400 Diastolic blood pressure 82 mm[Hg] Erin Singh CONSTRUCTION RECRUITER - MANAGER CASINO Work Phone: [facility] 01-21-2024 13:57-0400 Systolic blood pressure 128 mm[Hg] Erin Singh CONSTRUCTION RECRUITER - MANAGER CASINO Work Phone: [facility] 01-21-2024 13:18-0400 Body height 160 cm Erin Singh CONSTRUCTION RECRUITER - MANAGER CASINO Work Phone: [facility] 01-21-2024 13:18-0400 Body mass index (BMI) [Ratio] 49.39 kg/m2 Erin Singh CONSTRUCTION RECRUITER - MANAGER CASINO Work Phone: [facility] 01-21-2024 13:18-0400 Body weight 126.46 kg Erin Singh CONSTRUCTION RECRUITER - MANAGER CASINO Work Phone: [facility] 01-21-2024 13:18-0400 Heart rate 103 /min Erin Singh CONSTRUCTION RECRUITER - MANAGER CASINO Work Phone: [facility] 01-21-2024 13:18-0400 SaO2% (BldA) [Mass fraction] 98 % Erin Singh CONSTRUCTION RECRUITER - MANAGER CASINO Work Phone: [facility] 03-21-2023 09:44-0500 Body height 160 cm Erin Singh CONSTRUCTION RECRUITER - MANAGER CASINO Work Phone: [facility] 03-21-2023 09:44-0500 Body mass index (BMI) [Ratio] 47.47 kg/m2 Erin Singh CONSTRUCTION RECRUITER - MANAGER CASINO Work Phone: [facility] 03-21-2023 09:44-0500 Body temperature 98.29 [degF] Erin Singh CONSTRUCTION RECRUITER - MANAGER CASINO Work Phone: [facility] 03-21-2023 09:44-0500 Body weight 121.56 kg Erin Singh CONSTRUCTION RECRUITER - MANAGER CASINO Work Phone: [facility] 03-21-2023 09:44-0500 Diastolic blood pressure 83 mm[Hg] Erin Singh CONSTRUCTION RECRUITER - MANAGER CASINO Work Phone: [facility] 03-21-2023 09:44-0500 Heart rate 101 /min Erin Singh CONSTRUCTION RECRUITER - MANAGER CASINO Work Phone: [facility] 03-21-2023 09:44-0500 SaO2% (BldA) [Mass fraction] 98 % Erin Singh CONSTRUCTION RECRUITER - MANAGER CASINO Work Phone: [facility] 03-21-2023 09:44-0500 Systolic blood pressure 135 mm[Hg] Erin Singh CONSTRUCTION RECRUITER - MANAGER CASINO Work Phone: [facility] 03-17-2023 11:47-0500 Body height 162.6 cm Favian Mariee MD Work Phone: [facility] 03-17-2023 11:47-0500 Body mass index (BMI) [Ratio] 46.21 kg/m2 Favian Mariee MD Work Phone: [facility] 03-17-2023 11:47-0500 Body temperature 98.4 [degF] Favian Mariee MD Work Phone: [facility] 03-17-2023 11:47-0500 Body weight 122.11 kg Favian Mariee MD Work Phone: [facility] 03-17-2023 11:47-0500 Diastolic blood pressure 81 mm[Hg] Favian Mariee MD Work Phone: [facility] 03-17-2023 11:47-0500 Heart rate 100 /min Favian Mareie MD Work Phone: [facility] 03-17-2023 11:47-0500 SaO2% (BldA) [Mass fraction] 95 % Favian Mariee MD Work Phone: [facility] 03-17-2023 11:47-0500 Systolic blood pressure 136 mm[Hg] Favian Mariee MD Work Phone: [facility] [employer] 09-06-2022 07:00-0400 Body height 162.6 cm Erin Singh CONSTRUCTION RECRUITER - MANAGER CASINO Work Phone: [facility] 09-06-2022 07:00-0400 Body mass index (BMI) [Ratio] 45.14 kg/m2 Erin Singh CONSTRUCTION RECRUITER - MANAGER CASINO Work Phone: [facility] [employer] [facility] 09-06-2022 07:00-0400 Body temperature 97.81 [degF] Erin Singh CONSTRUCTION RECRUITER - MANAGER CASINO Work Phone: [employer] [facility] 09-06-2022 07:00-0400 Body weight 119.3 kg Erin Singh CONSTRUCTION RECRUITER - MANAGER CASINO Work Phone: [facility] [employer] [facility] 09-06-2022 07:00-0400 Diastolic blood pressure 86 mm[Hg] Erin Singh CONSTRUCTION RECRUITER - MANAGER CASINO Work Phone: [employer] [facility] [employer] 09-06-2022 07:00-0400 Heart rate 96 /min Erin Singh CONSTRUCTION RECRUITER - MANAGER CASINO Work Phone: [employer] [facility] 09-06-2022 07:00-0400 SaO2% (BldA) [Mass fraction] 98 % Erin Singh CONSTRUCTION RECRUITER - MANAGER CASINO Work Phone: [employer] [facility] [employer] 09-06-2022 07:00-0400 Systolic blood pressure 126 mm[Hg] Erin Singh CONSTRUCTION RECRUITER - MANAGER CASINO Work Phone: [facility] 02-15-2019 04:05-0400 BP Diastolic 87 mm[Hg] [facility] [place] 02-15-2019 04:05-0400 BP Systolic 140 mm[Hg] [facility] [place] 02-15-2019 04:05-0400 Pulse (Heart Rate) 96 /min [facility] [place] 02-15-2019 04:05-0400 Pulse Oximetry 99 % Dante Juv Acessórios- [place] , [place] 02-15-2019 04:05-0400 Respiratory Rate 16 /min Dante Hathaway [facility], [place] 02-15-2019 02:48-0400 BMI (Body Mass Index) 42.91 kg/m2 Dante Hathaway [facility], [place] 02-15-2019 02:48-0400 Body Temperature 97.5 [degF] Dante Hathaway [facility], [place] 02-15-2019 02:48-0400 Body [facility] 113.4 [facility] [place] 02-15-2019 02:48-0400 Height 162.6 cm [facility] [place] Encounters Encounter Date Encounter Type Care Provider Facility Start: 10-18-2024 End: 10-18-2024 Patient encounter procedure Deb Richard CNM Work Phone: OB/Gynecology Comment on above: Supervision of high risk in third trimester (HCC) (Primary Dx); Chronic hypertension affecting (HCC); Obesity during in third trimester (HCC); Single umbilical artery affecting management of mother, antepartum, single gestation (HCC); 37 weeks gestation of (HCC) Start: 10-18-2024 End: 10-18-2024 ambulatory Erin Singh NP Facility:[facility] Start: 10-14-2024 End: 10-14-2024 Patient encounter procedure 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 [facility] [facility] Comment on above: Obesity affecting pr egnancy in second trimester, unspecified obesity type (HCC) (Primary Dx); Single umbilical artery affecting management of mother, antepartum, single gestation (HCC) Start: 10-14-2024 End: 10-14-2024 ambulatory FAVIAN MARIEE Facility:[facility] Start: 10-11-2024 End: 10-11-2024 ambulatory GITA NATION Facility:[facility] Start: 10-11-2024 End: 10-11-2024 Patient encounter procedure Gita Nation MD Work Phone: OB/Gynecology Comment on above: 36 weeks gestation o f (HCC) (Primary Dx); Supervision of high risk in third trimester (HCC); Chronic hypertension affecting (HCC); Obesity during in third trimester (HCC); Single umbilical artery affecting management of mother, antepartum, single gestation (HCC) Start: 10-11-2024 End: 10-11-2024 ambulatory NIRU LEN Facility:[facility] Start: 10-07-2024 End: 10-07-2024 ambulatory NIRU LEN Facility:[facility] Start: 10-07-2024 End: 10-07-2024 Telephone encounter Darryl Adkins MD Work Phone: OB/Gynecology Comment on above: OB Elevated BP Start: 10-07-2024 End: 10-07-2024 ambulatory Erin Singh NP-C Work Phone: [facility] Work Phone: Start: 10-07-2024 End: 10-07-[address] Darryl Adkins -[facility] Work Phone: Comment on above: Single umbilical art libia affecting management of mother, antepartum, single gestation (HCC) Start: 10-04-2024 End: 10-04-2024 Patient encounter procedure Theo Boyle MD Work Phone: OB/Gynecology Comment on above: Supervision of high risk in third trimester (HCC) (Primary Dx); Chronic hypertension affecting (HCC); Obesity during in third trimester (HCC); Single umbilical artery affecting management of mother, antepartum, single gestation (HCC); 35 weeks gestation of (HCC) Start: 10-04-2024 End: 10-04-2024 ambulatory NIRU LEN Facility:[facility] Start: 09-30-2024 End: 09-30-2024 Patient encounter procedure Niru Harrington MD Work Phone: OB/Gynecology Comment on above: Supervision of high risk in third trimester (HCC) (Primary Dx); Chronic hypertension complicating or reason for care during childbirth (HCC); Obesity during in third trimester (HCC); Single umbilical artery affecting management of mother, antepartum, single gestation (HCC); 34 weeks gestation of (HCC) Start: 09-30-2024 End: 09-30-2024 ambulatory FAVIAN DONISMER Facility:[facility] Start: 09-24-2024 End: 09-24-2024 Patient encounter procedure Rachel Mosqueda APRN.CNM Work Phone: OB/Gynecology Comment on above: Supervision of high risk in third trimester (HCC) (Primary Dx); 33 weeks gestation of (HCC); Chronic hypertension complicating or reason for care during childbirth (HCC); Obesity during in third trimester (HCC); Single umbilical artery affecting management of mother, antepartum, single gestation (HCC) Start: 09-24-2024 End: 09-24-[address] [facility] Facility:[facility] Start: 09-21-2024 End: 09-21-2024 ambulatory [facility] Facility:[facility] Start: 09-21-2024 End: 09-21-2024 Patient encounter procedure 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 [facility] Comment on above: Encounter for ultras ound to check growth (HCC) (Primary Dx); Single umbilical artery affecting management of mother, antepartum, single gestation (HCC); 33 weeks gestation of (HCC) Supervision of high risk in third trimester (HCC) (Primary Dx); Chronic hypertension complicating or reason for care during childbirth (HCC); Obesity during in third trimester (HCC); Single umbilical artery affecting management of mother, antepartum, single gestation (HCC); 33 weeks gestation of (HCC) Start: 09-14-2024 End: 09-14-2024 ambulatory JESSI BOJORQUEZ Facility:[facility] Start: 09-13-2024 End: 09-13-[address] Darryl Adkins DO -[facility] Work Phone: Start: 09-13-2024 End: 09-13-2024 ambulatory Erin MONTAÑO Work Phone: [facility] Work Phone: Start: 09-13-2024 End: 09-13-2024 Telephone encounter Darryl Adkins MD Work Phone: OB/Gynecology Comment on above: Orders Start: 09-10-2024 End: 09-10-2024 ambulatory FAVIAN MARIEE Facility:[facility] Start: 09-10-2024 End: 09-10-2024 Patient encounter procedure Niru Harringotn MD Work Phone: OB/Gynecology Comment on above: Supervision of high risk in third trimester (HCC) (Primary Dx); Obesity during in third trimester (HCC); Single umbilical artery affecting management of mother, antepartum, single gestation (HCC); 31 weeks gestation of (HCC) Start: 08-27-2024 End: 08-27-2024 ambulatory FAVIAN DONISMER Facility:[facility] Start: 08-27-2024 End: 08-27-2024 Patient encounter procedure Niru Harrington MD Work Phone: OB/Gynecology Comment on above: Obesity during pregn tyson in third trimester (HCC) (Primary Dx); Single umbilical artery affecting management of mother, antepartum, single gestation (HCC); Screening for diabetes mellitus; Supervision of high risk in third trimester (HCC); 29 weeks gestation of (HCC) Encounter for ultras ound to check growth (HCC) (Primary Dx); Obesity during in third trimester (HCC); 29 weeks gestation of (HCC); Suspected anomaly, antepartum, single or unspecified fetus (HCC) Start: 08-26-2024 End: 08-27-2024 Telephone encounter Gita Nation MD Work Phone: OB/Gynecology Start: 08-17-2024 End: 10-17-2024 Follow-up encounter Fabienne RAMOS Work Phone: [facility] Start: 08-17-2024 End: 08-17-2024 Telephone encounter Fabienne Del Cid LG Work Phone: [facility] Comment on above: carrier screening re sults Start: 08-17-2024 End: 08-17-2024 Telemedicine consultation with patient Rachel Whatley MD Work Phone: Pediatric Urology Start: 08-17-2024 End: 08-17-2024 ambulatory Rachel Whatley MD Work Phone: Pediatric Urology Comment on above: abnormality af fecting management of mother, single or unspecified fetus (HCC) (Primary Dx) Start: 08-15-2024 End: 08-15-2024 ambulatory DONNA COURTNEY Facility:[facility] Start: 08-10-2024 End: 08-10-2024 ambulatory FAVIAN MARIEE Facility:[facility] Start: 08-10-2024 End: 08-18-2024 Patient encounter procedure 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 [facility] [facility] Comment on above: Penile hypospadias ( Primary Dx); Abnormal ultrasound; Single umbilical artery, maternal, antepartum (HCC) Start: 08-05-2024 End: 08-05-2024 Telephone encounter Darryl Adkins MD Work Phone: OB/Gynecology Start: 08-03-2024 End: 08-03-2024 Patient encounter procedure Rachel Mosqueda APRN.CNM Work Phone: OB/Gynecology Comment on above: Supervision of high risk in second trimester (HCC) (Primary Dx); Obesity affecting in second trimester, unspecified obesity type (HCC); Single umbilical artery affecting management of mother, antepartum, single gestation (HCC); Screening for diabetes mellitus; 26 weeks gestation of (HCC); Elevated blood pressure reading without diagnosis of hypertension; abnormality affecting management of mother, single or unspecified fetus (HCC) Start: 08-03-2024 End: 08-03-2024 ambulatory Fabienne Del Cid [facility] Work Phone: [facility] Comment on above: Testing of female fo r genetic disease carrier status (Primary Dx); Single umbilical artery, maternal, antepartum (HCC); Abnormal ultrasound Start: 08-03-2024 End: 08-03-2024 Telemedicine consultation with patient Fabienne Del Cid [facility] Work Phone: [facility] Start: 07-30-2024 End: 07-30-2024 Telephone encounter Deb Richard APRN.CNM Work Phone: OB/Gynecology Start: 07-29-2024 End: 07-29-2024 E-mail encounter from caregiver Nemo Thompson RN Maternal Medicine Start: 07-29-2024 End: 07-29-2024 Patient encounter procedure Nemo Thompson RN Maternal Medicine Comment on above: Appointment for Apri marlene Start: 07-29-2024 End: 07-29-2024 Telephone encounter Nemo Thompson RN Maternal Medicine Comment on above: Care Plan (Int roduction ) Start: 07-28-2024 End: 07-29-2024 Follow-up encounter Theo Boyle MD Work Phone: OB/Gynecology Start: 07-27-2024 End: 09-26-2024 Follow-up encounter Gita Nation MD Work Phone: OB/Gynecology Start: 07-27-2024 End: 07-27-2024 ambulatory FAVIAN MARIEE Facility:[facility] Start: 07-27-2024 End: 07-27-2024 ambulatory GITA NATION Facility:[facility] Start: 07-27-2024 End: 07-27-2024 Patient encounter procedure Theo Boyle MD Work Phone: OB/Gynecology Comment on above: Supervision of high risk in second trimester (HCC) (Primary Dx); Obesity affecting in second trimester, unspecified obesity type (HCC); Single umbilical artery affecting management of mother, antepartum, single gestation (HCC); 25 weeks gestation of (HCC); Screening for diabetes mellitus Encounter for follow -up ultrasound of anatomy (HCC) (Primary Dx); Single umbilical artery, maternal, antepartum (HCC); Abnormal ultrasound; 25 weeks gestation of (HCC) Start: 07-06-2024 End: 09-05-2024 Follow-up encounter Niru Harrington MD Work Phone: OB/Gynecology Start: 07-06-2024 End: 07-06-2024 Patient encounter procedure Meli Anne MD Work Phone: Pediatric Cardiology Start: 07-06-2024 End: 07-06-2024 ambulatory Meli Anne MD Work Phone: Pediatric Cardiology Start: 06-24-2024 End: 08-24-2024 Follow-up encounter Ankita Carrillo MD Work Phone: OB/Gynecology Start: 06-24-2024 End: 06-24-2024 ambulatory FAVIAN MARIEE Facility:[facility] Start: 06-24-2024 End: 06-24-2024 Patient encounter procedure Niru Harrington MD Work Phone: OB/Gynecology Comment on above: Single umbilical art libia affecting management of mother, antepartum, single gestation (Primary Dx); 20 weeks gestation of ; Supervision of high risk in second trimester; Obesity affecting in second trimester, unspecified obesity type Encounter for anatomic survey (Primary Dx); Single umbilical artery, maternal, antepartum; Obesity affecting in second trimester, unspecified obesity type; 20 weeks gestation of ; Single umbilical artery affecting management of mother, antepartum, single gestation Start: 05-24-2024 End: 05-24-2024 ambulatory FAISAL COLLINS Facility:[facility] Start: 05-24-2024 End: 05-24-2024 Patient encounter procedure Faisal Collins APRN.MANAGER CASINO Work Phone: OB/Gynecology Comment on above: Supervision of high risk in second trimester (Primary Dx); 16 weeks gestation of ; Obesity affecting in second trimester, unspecified obesity type Start: 04-29-2024 End: 04-29-2024 ambulatory FAVIAN MARIEE Facility:[facility] Start: 04-29-2024 End: 04-29-2024 Patient encounter procedure Ankita Carrillo MD Work Phone: OB/Gynecology Comment on above: Supervision of high risk in first trimester (Primary Dx); 12 weeks gestation of ; Obesity affecting in first trimester, unspecified obesity type Start: 04-22-2024 End: 04-22-2024 ambulatory FAVIAN MARIEE Facility:[facility] Start: 04-22-2024 End: 04-22-2024 Patient encounter procedure 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 [facility] [facility] Comment on above: Confirm cardia c activity using ultrasound (Primary Dx); 11 weeks gestation of Start: 04-02-2024 End: 04-02-2024 ambulatory FAVIAN MARIEE Facility:[facility] Start: 04-01-2024 End: 04-01-2024 ambulatory Darryl Adkins MD Work Phone: OB/Gynecology Comment on above: Urine culture Start: 03-22-2024 End: 03-22-2024 ambulatory FAVIAN MARIEE Facility:[facility] Start: 03-22-2024 End: 03-22-2024 Patient encounter procedure Deb Richard CONSTRUCTION RECRUITER.WENDYM Work Phone: OB/Gynecology Comment on above: 7 weeks gestation of (Primary Dx); Encounter for care in first trimester of first ; Encounter for supervision of high risk in first trimester, antepartum; Obesity affecting in first trimester, unspecified obesity type; Currently in first trimester with unknown gestational age; Anxiety; History of depression Start: 03-15-2024 End: 03-15-2024 Telephone encounter Darryl Adkins MD Work Phone: OB/Gynecology Comment on above: ER F/U Start: 03-15-2024 End: 03-15-2024 Emergency department patient visit Erin Singh NP Facility:[facility] Start: 03-11-2024 End: 03-11-2024 ambulatory DARRYL ADKINS Facility:[facility] Start: 03-10-2024 End: 03-10-2024 Telephone encounter Niru Harrington MD Work Phone: OB/Gynecology Comment on above: Results Start: 03-09-2024 End: 03-09-2024 ambulatory DARRYL ADKINS Facility:[facility] Start: 03-08-2024 End: 03-08-2024 Refill Darryl Adkins MD Work Phone: OB/Gynecology Comment on above: Med Change Request Start: 03-05-2024 End: 03-05-2024 ambulatory DARRYL ADKINS Facility:[facility] Start: 03-04-2024 End: 03-04-2024 Telephone encounter Darryl Adkins MD Work Phone: OB/Gynecology Comment on above: Orders Results; Appointment Start: 03-03-2024 End: 03-03-2024 ambulatory FAVIAN MARIEE Facility:[facility] Start: 03-01-2024 End: 03-02-2024 Patient encounter procedure Darryl Adkins MD Work Phone: OB/Gynecology Comment on above: Hcg appointment Start: 03-01-2024 End: 03-02-2024 ambulatory Darryl Adkins MD Work Phone: OB/Gynecology Start: 02-26-2024 End: 02-26-2024 ambulatory Darryl Adkins MD Work Phone: OB/Gynecology Comment on above: Positive t est 02/25 Start: 02-18-2024 End: 02-19-2024 Refill Darryl Adkins MD Work Phone: OB/Gynecology Comment on above: Med Change Request Start: 02-16-2024 End: 02-16-2024 ambulatory DARRYL ADKINS Facility:[facility] Start: 02-16-2024 End: 02-16-2024 Patient encounter procedure Darryl Adkins MD Work Phone: OB/Gynecology Comment on above: History of miscarria ge (Primary Dx) Start: 01-22-2024 ambulatory Erin Singh [employer]ANK COMPLIANCE OFFICER Facility :[facility] Start: 01-21-2024 End: 01-21-2024 Office outpatient visit 25 minutes Erin Singh CONSTRUCTION RECRUITER - MANAGER CASINO Work Phone: [facility] Comment on above: History of multiple miscarriages (Primary Dx); Amenorrhea; Morbid obesity with BMI of 45.0-49.9, adult (HCC); Mild episode of recurrent major depressive disorder (HCC); Anxiety; Screening for lipoid disorders; Screening for diabetes mellitus; Encounter for screening for HIV; Need for hepatitis C screening test; Influenza vaccine refused Start: 01-21-2024 End: 01-21-2024 ambulatory ERIN SINGH [facility] Start: 01-06-2024 End: 01-06-2024 ambulatory Erin Singh BANK COMPLIANCE OFFICER Facility:[facility] Start: 01-01-2024 End: 01-01-2024 ambulatory Erin Singh BANK COMPLIANCE OFFICER Facility:[facility] Start: 12-30-2023 End: 12-30-2023 ambulatory Erin Singh BANK COMPLIANCE OFFICER Facility:[facility] Start: 12-08-2023 End: 12-08-2023 ambulatory Erin Singh BANK COMPLIANCE OFFICER Facility:[facility] Start: 11-20-2023 End: 11-20-2023 ambulatory Erin Singh BANK COMPLIANCE OFFICER Facility:[facility] Start: 11-13-2023 End: 11-13-2023 ambulatory Erin Singh BANK COMPLIANCE OFFICER Facility:[facility] Start: 11-11-2023 End: 11-11-2023 ambulatory Erin Singh BANK COMPLIANCE OFFICER Facility:[facility] Start: 11-11-2023 End: 11-11-2023 ambulatory Erin Singh BANK COMPLIANCE OFFICER Facility:[facility] Start: 03-21-2023 ambulatory Joann Chicas RN [facility] Communication Start: 03-21-2023 Patient encounter procedure Joann Chicas RN [facility] Communication Start: 03-21-2023 End: 03-21-2023 Office outpatient visit 15 minutes Erin Singh CONSTRUCTION RECRUITER - MANAGER CASINO Work Phone: [facility] Comment on above: Bilateral acute sero us otitis media, recurrence not specified (Primary Dx); Pharyngitis, unspecified etiology Start: 03-17-2023 ambulatory Deloris diaz RN [facility] Clinical Communication Start: 03-17-2023 Patient encounter procedure Deloris Louise RN [facility] Communication Start: 03-17-2023 End: 03-17-2023 Office outpatient visit 15 minutes Favian Mariee MD Work Phone: [facility] Comment on above: Acute bacterial conj unctivitis of right eye (Primary Dx); Sore throat Start: 09-06-2022 End: 09-06-2022 Office outpatient visit 15 minutes Erin Singh CONSTRUCTION RECRUITER - MANAGER CASINO Work Phone: [facility] Comment on above: Urinary frequency (P rimary Dx); Dysuria; Leukocytes in urine Start: 04-24-2022 Telephone encounter Erin Abdi CONSTRUCTION RECRUITER - MANAGER CASINO Work Phone: [facility] Comment on above: Results (Cardiac Gabriela nt Monitor) Start: 02-15-2019 End: 02-15-2019 Emergency department patient visit Dante Hathaway Work Phone: [facility] Comment on above: Nausea vomiting and diarrhea (Primary Dx) Procedures Date Procedure Procedure Detail Performing Clinician Start: 10-18-2024 Urnls dip stick/tabl et rgnt non-auto w/o micrscp Deb Richard CONSTRUCTION RECRUITER.CNM Work Phone: Start: 10-14-2024 Us preg uterus after 1st trimest 04/28 gestation Niru Harrington MD Work Phone: Start: 10-11-2024 Urnls dip stick/tabl et rgnt non-auto w/o micrscp Darryl Adkins MD Work Phone: Start: 10-07-2024 Us preg uterus after 1st trimest 04/28 gestation Niru Harrington MD Work Phone: Start: 10-07-2024 Estimated creatinine clearance Erin MONTAÑO Work Phone: Start: 09-30-2024 Urnls dip stick/tabl et rgnt non-auto w/o micrscp Niru Harrington MD Work Phone: Start: 09-24-2024 Urnls dip stick/tabl et rgnt non-auto w/o micrscp Rachel Mosqueda CONSTRUCTION RECRUITER.CNM Work Phone: Start: 09-21-2024 Us preg uterus after 1st trimest 04/28 gestation Niru Harrington MD Work Phone: Start: 08-27-2024 Us preg uterus after 1st trimest 04/28 gestation Niru Harrington MD Work Phone: Start: 08-10-2024 Us preg uterus after 1st trimest 04/28 gestation Luz Elena Laguna MD Work Phone: Start: 07-27-2024 Us preg uterus after 1st trimest 04/28 gestation Willa Smith MD Work Phone: Start: 06-24-2024 Us preg uterus after 1st trimest 04/28 gestation Ankita Carrillo MD Work Phone: Start: 04-22-2024 Antibody screen [facility] Comment on above: Order Comment: Speci men Type: BLOOD SPECIMEN Ordering Facility: [facility] Address: [place] [address] Performed By: #### 2 [id number], [id number] #### [facility] CLIA [id number] [address] [place] [address] [place] Start: 04-22-2024 Us nuchal translucency 1st gestation Deb Cantuchiki CONSTRUCTION RECRUITER.CNM Work Phone: Start: 03-22-2024 Us uterus limited 1/> fetuses Deb Plotchiki CONSTRUCTION RECRUITER.CNM Work Phone: Start: 09-06-2022 Urnls dip stick/tabl et rgnt non-auto w/o micrscp Erin Singh CONSTRUCTION RECRUITER - MANAGER CASINO Work Phone: Start: 04-05-2022 Microscopic observat ion [Identifier] in Cervix by Cyto stain Erin Singh CONSTRUCTION RECRUITER - MANAGER CASINO Work Phone: Start: 02-15-2019 Heterophile antibodi es screen Dante Hathaway Work Phone: Start: 02-15-2019 Iaadiadoo influenza Coral Hathaway Work Phone: H/O: surgery Status post dila tion and curettage Erin Singh BANK COMPLIANCE OFFICER-C Work Phone: Plan of Treatment Date Care Activity Detail Author Start: 2059 RSV Immunization age d 60 or older (1 - 1-dose 60+ series) RSV Immunization aged 60 or older (1 - 1-dose 60+ series) [facility] Start: 11-02-2049 Zoster Vaccines (1 of 2) Zoster Vacc kathe (1 of 2) [facility] Start: 04-05-2025 Screening for malign ant neoplasm of cervix [facility] Start: 01-20-2025 COVID-19 Vaccine ( season) COVID-19 Vaccine ( season) [facility] Comment on above: Postponed from 12/27 (Patient Refused) Start: 01-20-2025 DTaP/Tdap/Td Vaccine s (7 - Td or Tdap) DTaP/Tdap/Td Vaccines (7 - Td or Tdap) [facility] Comment on above: Postponed from 12/22 (Patient Refused) Start: 01-20-2025 HPV Vaccines (1 - 3- dose series) HPV Vaccines (1 - 3-dose series) [facility] Comment on above: Postponed from 11/02 (Patient Refused) Start: 12-27-2024 Influenza vaccination Influenz a Vaccine (Season Ended) [facility] Start: 10-28-2024 End: 10-28-2024 Patient encounter procedure 10/28/2024 10:50 AM EDT Office Visit OB/Gynecology [address] [place] [id number] Niru Harrington MD [address] [place] [address] Post OB/Gynecology Comment on above: Post Start: 10-25-2024 Influenza vaccination Influenza Vacc ine (#1) [facility] Comment on above: Postponed from 12/27 (Patient Refused) Start: 10-21-2024 End: 10-21-2024 Patient encounter procedure 10/21/2024 10:00 AM EDT Routine Office Visit Maternal Medicine [address] [place] [address] Growth Maternal Medicine Comment on above: Growth Start: 10-18-2024 End: 10-18-2024 Patient encounter procedure OB/Gynecology Comment on above: NST Nst/ OB Start: 10-14-2024 End: 10-14-2024 Patient encounter procedure 10/14/2024 11:00 AM EDT Routine Office Visit Maternal Medicine [address] [place] [id number] BPP Maternal Medicine Comment on above: BPP Start: 10-11-2024 End: 01-10-2025 Protein/Creatinine [Mass Ratio] in Urine [facility] Work Phone: Comment on above: Expected: 10/11/2024 , Expires: 01/10/2025 Start: 10-11-2024 End: 10-11-2024 Patient encounter procedure OB/Gynecology Comment on above: NST /OB OB Start: 10-07-2024 End: 10-07-2024 Patient encounter procedure 10/07/2024 3:00 PM EDT Routine Office Visit Maternal Medicine [address] [place] [address] BPP/growth Maternal Medicine Comment on above: BPP/growth Start: 10-07-2024 Nonstress test [facility] Start: 10-07-2024 Obstetric monitoring [facility] Start: 10-07-2024 Vital signs measurements [facility] Start: 10-07-2024 [facility] Start: 10-07-2024 Patient discharge [facility] Start: 10-04-2024 End: 10-04-2024 Patient encounter procedure OB/Gynecology Comment on above: NST /OB OB Start: 09-30-2024 End: 09-30-2024 Patient encounter procedure OB/Gynecology Comment on above: nst OB Start: 09-24-2024 End: 09-24-2024 Patient encounter procedure OB/Gynecology Comment on above: NST Ob Start: 09-23-2024 End: 09-23-2024 Patient encounter procedure Maternal Medicine Comment on above: Growth Growth/OB Start: 09-21-2024 End: 09-21-2024 Patient encounter procedure Maternal Medicine Comment on above: Growth OB Start: 09-13-2024 Nonstress test [facility] Start: 09-13-2024 Obstetric monitoring [facility] Start: 09-13-2024 [facility] Start: 09-13-2024 Vital signs measurements [facility] Start: 09-13-2024 Patient discharge [facility] Start: 09-09-2024 End: 09-09-2024 Patient encounter procedure 09/09/2024 8:00 AM EDT Routine Office Visit OB/Gynecology [address] [place] [address] Faisal Collins APRN.MANAGER CASINO [address] [place] [address] OB OB/Gynecology Comment on above: OB Start: 08-27-2024 End: 08-27-2024 Patient encounter procedure Maternal Medicine Comment on above: Growth US/OB Start: 08-18-2024 End: 08-18-2024 Patient encounter procedure 08/18/2024 2:20 PM EDT Routine Office Visit OB/Gynecology [address] [place] [address] Jessi Ramirez MD [address] [place] [address] OB OB/Gynecology Comment on above: OB Start: 08-10-2024 End: 08-10-2024 Patient encounter procedure Maternal Medicine Comment on above: growth est mfm F/u Anomaly - by EDC , ?hypospadias w/ shortened shaft and blunt tip, 2VC, BMI 48; Start: 08-03-2024 End: 08-03-2024 Patient encounter procedure 08/03/2024 2:30 PM EDT Routine Office Visit OB/Gynecology [address] [place] [address] Rachel Mosqueda APRN.CNM [address] [place] [address] BP CHECK OB/Gynecology Comment on above: BP CHECK Start: 08-03-2024 End: 11-02-2024 CARRIER SCREEN, STANDARD [facility] Work Phone: Comment on above: Expected: 08/03/2024 , Expires: 11/02/2024 Start: 08-03-2024 End: 08-03-2024 ambulatory 08/03/2024 9:00 AM EDT [facility] [address] [facility] [address] [place], [place] [id number] Fabienne Del Cid, ALEAH [address] [place] [address] Single umbilical artery, maternal, antepartum (HCC) [O09.899] [facility] Comment on above: Single umbilical art libia, maternal, antepartum (HCC) [O09.899] Start: 07-27-2024 End: 10-26-2024 ANEMIA REFLEX PANEL [facility] Comment on above: Expected: 07/27/2024 , Expires: 10/26/2024 Start: 07-27-2024 End: 07-27-2025 GESTATIONAL GLUCOSE SCREEN, 1-HOUR, 50 GRAM, NON-FASTING GESTATIONAL GLUCOSE SCREEN, 1-HOUR, 50 GRAM, NON-FASTING Lab Routine Supervision of high risk in second trimester Obesity affecting in second trimester, unspecified obesity type Single umbilical artery affecting management of mother, antepartum, single gestation 25 weeks gestation of Screening for diabetes mellitus Expected: 07/27/2024, Expires: 07/27/2025 [facility] Work Phone: Comment on above: Expected: 07/27/2024 , Expires: 07/27/2025 Start: 07-27-2024 End: 10-26-2024 Protein/Creatinine [Mass Ratio] in Urine PROTEIN / CREATININE RATIO Lab Routine Supervision of high risk in second trimester Expected: 07/27/2024, Expires: 10/26/2024 [facility] Comment on above: Expected: 07/27/2024 , Expires: 10/26/2024 Start: 07-27-2024 End: 07-27-2025 SYPHILIS TREPONEMAL W/REFLEX [facility] Comment on above: Expected: 07/27/2024 , Expires: 07/27/2025 Start: 07-27-2024 End: 07-27-2024 Patient encounter procedure Maternal Medicine Comment on above: Single umbilical art libia, maternal, antepartum [O09.899] OB [facility] Start: 07-20-2024 Depression Monitoring Depression [facility] Start: 07-06-2024 End: 07-06-2024 ambulatory 07/06/2024 9:00 AM EDT Procedure Pediatric Cardiology [address] [facility] [place] [address] Meli Anne MD [address] [place] [address] Single umbilical artery affecting management of mother, antepartum, single gesta.. Pediatric Cardiology Comment on above: Single umbilical art libia affecting management of mother, antepartum, single gesta.. Start: 07-06-2024 End: 07-06-2024 Patient encounter procedure 07/06/2024 9:00 AM EDT Office Visit Pediatric Cardiology [address] [place], [place] [id number] Single umbilical artery affecting management of mother, antepartum, single gesta.. Pediatric Cardiology Comment on above: Single umbilical art libia affecting management of mother, antepartum, single gesta.. Start: 06-24-2024 End: 06-24-2025 OBSTETRIC ULTRASOUND WHI OBSTETRIC ULTRASOUND WHI Anc Imaging Routine Single umbilical artery, maternal, antepartum Expected: 06/24/2024, Expires: 06/24/2025 [facility] Work Phone: Comment on above: Expected: 06/24/2024 , Expires: 06/24/2025 Start: 06-24-2024 End: 06-24-2024 Patient encounter procedure Maternal Medicine Comment on above: Anatomy Scan OB Routine Start: 05-24-2024 End: 05-24-2024 Patient encounter procedure 05/24/2024 8:00 AM EST Routine Office Visit OB/Gynecology [address] [place] [address] Faisal Collins APRN.MANAGER CASINO [address] [place] [address] OB Routine OB/Gynecology Comment on above: OB Routine Start: 04-29-2024 End: 07-29-2024 Chromosome 21 trisomy [Presence] in Blood or Tissue by Cytogenetics [facility] Comment on above: Expected: 04/29/2024 , Expires: 07/29/2024 Start: 04-29-2024 End: 04-29-2025 OBSTETRIC ULTRASOUND WHI OBSTETRIC ULTRASOUND WHI Anc Imaging Routine 12 weeks gestation of Obesity affecting in first trimester, unspecified obesity type Supervision of high risk in first trimester Expected: 04/29/2024, Expires: 04/29/2025 [facility] Work Phone: Comment on above: Expected: 04/29/2024 , Expires: 04/29/2025 Start: 04-29-2024 End: 04-29-2024 Patient encounter procedure 04/29/2024 9:20 AM EST Routine Office Visit OB/Gynecology [address] [place], [place] [id number] Ankita Carrillo MD [address] [place] [address] Nuchal / OB OB/Gynecology Comment on above: Nuchal / OB Start: 04-22-2024 End: 04-22-2024 Patient encounter procedure OB/Gynecology Comment on above: 2nd OB Nuchal Start: 04-01-2024 End: 07-01-2024 Urinalysis complete panel - Urine URINALYSIS, WITH MICROSCOPIC Lab Routine Urinary frequency Urgency of urination Expected: 04/01/2024, Expires: 07/01/2024 [facility] Work Phone: Comment on above: Expected: 04/01/2024 , Expires: 07/01/2024 Start: 03-22-2024 End: 06-21-2024 ANEMIA REFLEX PANEL ANEMIA REFLEX PANEL Lab Routine Encounter for care in first trimester of first Expected: 03/22/2024, Expires: 06/21/2024 [facility] Work Phone: Comment on above: Expected: 03/22/2024 , Expires: 06/21/2024 Start: 03-22-2024 End: 06-21-2024 Hemoglobin A1c in Blood HEMOGLOBIN A1C Lab Routine Encounter for care in first trimester of first Expected: 03/22/2024, Expires: 06/21/2024 [facility] Comment on above: Expected: 03/22/2024 , Expires: 06/21/2024 Start: 03-22-2024 End: 06-21-2024 Hepatitis B virus surface Ag [Presence] in Serum HEPATITIS B SURFACE ANTIGEN Lab Routine Encounter for care in first trimester of first Expected: 03/22/2024, Expires: 06/21/2024 [facility] Comment on above: Expected: 03/22/2024 , Expires: 06/21/2024 Start: 03-22-2024 End: 06-21-2024 Hepatitis C virus Ab [Presence] in Serum HEPATITIS C ANTIBODY IA WITH CONFIRMATION Lab Routine Encounter for care in first trimester of first Expected: 03/22/2024, Expires: 06/21/2024 [facility] Comment on above: Expected: 03/22/2024 , Expires: 06/21/2024 Start: 03-22-2024 End: 06-21-2024 HIV 1+2 Ab [Presence] in Serum or Plasma by Immunoassay HIV 1/2 COMBO WITH REFLEX TO DIFFERENTIATION Lab Routine Encounter for care in first trimester of first Expected: 03/22/2024, Expires: 06/21/2024 [facility] Comment on above: Expected: 03/22/2024 , Expires: 06/21/2024 Start: 03-22-2024 End: 03-22-2025 NUCHAL TRANSLUCENCY WHI NUCHAL TRANSLUCENCY WHI Anc Imaging Routine Encounter for care in first trimester of first Expected: 03/22/2024, Expires: 03/22/2025 [facility] Comment on above: Expected: 03/22/2024 , Expires: 03/22/2025 Start: 03-22-2024 End: 06-21-2024 RUBELLA IGG ANTIBODY RUBELLA IGG ANTIBODY Lab Routine Encounter for care in first trimester of first Expected: 03/22/2024, Expires: 06/21/2024 [facility] Comment on above: Expected: 03/22/2024 , Expires: 06/21/2024 Start: 03-22-2024 End: 06-21-2024 SYPHILIS TREPONEMAL W/REFLEX SYPHILIS TREPONEMAL W/REFLEX Lab Routine Encounter for care in first trimester of first Expected: 03/22/2024, Expires: 06/21/2024 [facility] Comment on above: Expected: 03/22/2024 , Expires: 06/21/2024 Start: 03-22-2024 End: 06-21-2024 TYPE + SCREEN TYPE + SCREEN Blood Bank Routine Encounter for care in first trimester of first Expected: 03/22/2024, Expires: 06/21/2024 [facility] Comment on above: Expected: 03/22/2024 , Expires: 06/21/2024 Start: 03-22-2024 End: 03-22-2024 Patient encounter procedure 03/22/2024 8:45 AM EST Initial Office Visit OB/Gynecology [address] [place] [address] Deb Richard APRN.CN [address] [place] [address] 1st OB + US to confirm OB/Gynecology Comment on above: 1st OB + US to confi rm Start: 03-11-2024 End: 03-11-2024 ambulatory 03/11/2024 8:45 AM EST Results Only John Enamorado [facility] [address] [place] [address] [place] [facility] Start: 03-09-2024 End: 03-09-2024 ambulatory 03/09/2024 8:45 AM EST Results Only John Enamorado [facility] Laboratory [address] [place] [address] [place] [facility] Start: 03-05-2024 End: 03-05-2024 ambulatory 03/05/2024 7:45 AM EST Results Only John Fryen [facility] Laboratory [address] [place] [address] lab [place] [facility] Comment on above: lab Start: 03-03-2024 End: 03-03-2024 ambulatory 03/03/2024 8:00 AM EST Results Only John Jeterwn [facility] Laboratory [address] [place] [address] Encounter for test, result positive [Z32.01] [facility] Comment on above: Encounter for pregna ncy test, result positive [Z32.01] Start: 02-17-2024 End: 02-17-2024 ambulatory 02/17/2024 10:00 AM EDT Procedure OB/Gynecology [address] [facility] [place] [address] 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, 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 [facility] [address] [facility] [place] [address] History of miscarriage [Z87.59] OB/Gynecology Comment on above: History of miscarria ge [Z87.59] Start: 02-16-2024 End: 02-15-2025 US Pelvis PELVIC US [facility]I Anc Imaging Routine History of miscarriage Expected: 02/16/2024, Expires: 02/15/2025 [facility] Work Phone: Comment on above: Expected: 02/16/2024 , Expires: 02/15/2025 Start: 01-21-2024 End: 01-20-2025 CBC W Auto Differential panel - Blood CBC auto differential Lab Routine History of multiple miscarriages Amenorrhea Morbid obesity with BMI of 45.0-49.9, adult (HCC) Mild episode of recurrent major depressive disorder (HCC) Anxiety Expected: 01/21/2024 (Approximate), Expires: 01/20/2025 [employer] Comment on above: Expected: 01/21/2024 (Approximate), Expires: 01/20/2025 Start: 01-21-2024 End: 01-20-2025 Comprehensive metabolic 1998 panel - Serum or Plasma Comprehensive metabolic panel Lab Routine History of multiple miscarriages Amenorrhea Morbid obesity with BMI of 45.0-49.9, adult (HCC) Mild episode of recurrent major depressive disorder (HCC) Anxiety Screening for diabetes mellitus Expected: 01/21/2024 (Approximate), Expires: 01/20/2025 [employer] [facility] Comment on above: Expected: 01/21/2024 (Approximate), Expires: 01/20/2025 Start: 01-21-2024 End: 01-20-2025 Estrogens, total Estrogens, total Lab Routine History of multiple miscarriages Amenorrhea Morbid obesity with BMI of 45.0-49.9, adult (HCC) Expected: 01/21/2024 (Approximate), Expires: 01/20/2025 [employer] Comment on above: Expected: 01/21/2024 (Approximate), Expires: 01/20/2025 Start: 01-21-2024 End: 01-20-2025 Factor 5 leiden Factor 5 leiden Lab Routine History of multiple miscarriages Amenorrhea Expected: 01/21/2024 (Approximate), Expires: 01/20/2025 [employer] [facility] Comment on above: Expected: 01/21/2024 (Approximate), Expires: 01/20/2025 Start: 01-21-2024 End: 01-20-2025 Fibrinogen [Mass/volume] in Platelet poor plasma by Coagulation assay Fibrinogen Lab Routine History of multiple miscarriages Amenorrhea Expected: 01/21/2024 (Approximate), Expires: 01/20/2025 [employer] [facility] Comment on above: Expected: 01/21/2024 (Approximate), Expires: 01/20/2025 Start: 01-21-2024 End: 01-20-2025 Follicle stimulating hormone Follicle stimulating hormone Lab Routine History of multiple miscarriages Amenorrhea Morbid obesity with BMI of 45.0-49.9, adult (HCC) Expected: 01/21/2024 (Approximate), Expires: 01/20/2025 [employer] [facility] Comment on above: Expected: 01/21/2024 (Approximate), Expires: 01/20/2025 Start: 01-21-2024 End: 01-20-2025 Hemoglobin A1c measurement Hemoglobin A1c Lab Routine History of multiple miscarriages Amenorrhea Screening for diabetes mellitus Expected: 01/21/2024 (Approximate), Expires: 01/20/2025 [employer] Comment on above: Expected: 01/21/2024 (Approximate), Expires: 01/20/2025 Start: 01-21-2024 End: 01-20-2025 Hepatitis C virus Ab [Presence] in Serum or Plasma by Immunoassay Hepatitis C antibody Lab Routine Need for hepatitis C screening test Expected: 01/21/2024 (Approximate), Expires: 01/20/2025 [employer] Comment on above: Expected: 01/21/2024 (Approximate), Expires: 01/20/2025 Start: 01-21-2024 End: 01-20-2025 HIV 1+2 Ab+HIV1 p24 Ag [Presence] in Serum or Plasma by Immunoassay HIV-1 and HIV-2 Antigen-Antibody Screen Lab Routine Encounter for screening for HIV Expected: 01/21/2024 (Approximate), Expires: 01/20/2025 [facility] Comment on above: Expected: 01/21/2024 (Approximate), Expires: 01/20/2025 Start: 01-21-2024 End: 01-20-2025 Lipid 1996 panel - Serum or Plasma Lipid panel Lab Routine History of multiple miscarriages Amenorrhea Screening for lipoid disorders Expected: 01/21/2024 (Approximate), Expires: 01/20/2025 [facility] Comment on above: Expected: 01/21/2024 (Approximate), Expires: 01/20/2025 Start: 01-21-2024 End: 01-20-2025 LUPUS ANTICOAGULANT EVALUATION WITH REFLEX (BKR QUEST) LUPUS ANTICOAGULANT EVALUATION WITH REFLEX (BKR QUEST) Lab Routine History of multiple miscarriages Amenorrhea Expected: 01/21/2024 (Approximate), Expires: 01/20/2025 [facility] Comment on above: Expected: 01/21/2024 (Approximate), Expires: 01/20/2025 Start: 01-21-2024 End: 01-20-2025 Luteinizing hormone Luteinizing hormone Lab Routine History of multiple miscarriages Amenorrhea Morbid obesity with BMI of 45.0-49.9, adult (HCC) Expected: 01/21/2024 (Approximate), Expires: 01/20/2025 [facility] Comment on above: Expected: 01/21/2024 (Approximate), Expires: 01/20/2025 Start: 01-21-2024 End: 01-20-2025 Prolactin Prolactin Lab Routine History of multiple miscarriages Amenorrhea Morbid obesity with BMI of 45.0-49.9, adult (HCC) Expected: 01/21/2024 (Approximate), Expires: 01/20/2025 [facility] Comment on above: Expected: 01/21/2024 (Approximate), Expires: 01/20/2025 Start: 01-21-2024 End: 01-20-2025 Protein C activity Protein C activity Lab Routine History of multiple miscarriages Amenorrhea Expected: 01/21/2024 (Approximate), Expires: 01/20/2025 [facility] Comment on above: Expected: 01/21/2024 (Approximate), Expires: 01/20/2025 Start: 01-21-2024 End: 01-20-2025 Protein S, total and free Protein S, total and free Lab Routine History of multiple miscarriages Amenorrhea Expected: 01/21/2024 (Approximate), Expires: 01/20/2025 [facility] Work Phone: Comment on above: Expected: 01/21/2024 (Approximate), Expires: 01/20/2025 Start: 01-21-2024 End: 01-20-2025 Prothrombin gene mutation Prothrombin gene mutation Lab Routine History of multiple miscarriages Amenorrhea Expected: 01/21/2024 (Approximate), Expires: 01/20/2025 [facility] Comment on above: Expected: 01/21/2024 (Approximate), Expires: 01/20/2025 Start: 01-21-2024 End: 01-20-2025 Thyrotropin [Units/volume] in Serum or Plasma TSH Lab Routine History of multiple miscarriages Amenorrhea Morbid obesity with BMI of 45.0-49.9, adult (HCC) Mild episode of recurrent major depressive disorder (HCC) Anxiety Expected: 01/21/2024 (Approximate), Expires: 01/20/2025 [facility] Comment on above: Expected: 01/21/2024 (Approximate), Expires: 01/20/2025 Start: 01-21-2024 End: 01-20-2025 Thyroxine (T4) free [Mass/volume] in Serum or Plasma T4, free Lab Routine History of multiple miscarriages Amenorrhea Morbid obesity with BMI of 45.0-49.9, adult (HCC) Mild episode of recurrent major depressive disorder (HCC) Anxiety Expected: 01/21/2024 (Approximate), Expires: 01/20/2025 [facility] Comment on above: Expected: 01/21/2024 (Approximate), Expires: 01/20/2025 Start: 01-21-2024 End: 01-20-2025 Triiodothyronine (T3) Free [Mass/volume] in Serum or Plasma T3, free Lab Routine History of multiple miscarriages Amenorrhea Morbid obesity with BMI of 45.0-49.9, adult (HCC) Mild episode of recurrent major depressive disorder (HCC) Anxiety Expected: 01/21/2024 (Approximate), Expires: 01/20/2025 [facility] Comment on above: Expected: 01/21/2024 (Approximate), Expires: 01/20/2025 Start: 12-28-2023 Covid-19 Vaccine ( season) Covid-19 Vaccine ( season) [facility] Start: 12-28-2023 Influenza vaccination Influenza Vacc ine (#1) [facility] Start: 04-08-2023 Depresssion Monitoring Depresssion M onitoring [facility] Start: 03-04-2023 COVID-19 Vaccine (#1) COVID-19 Vacci ne (#1) [facility] Comment on above: Postponed from 05/05 (Other Patient Reasons) Start: 03-04-2023 Hepatitis C screening Hepatitis C Sc reening [facility] Comment on above: Postponed from 11/02 (Patient Refused) Start: 03-04-2023 HIV screening HIV Screening [facility] Comment on above: Postponed from 11/02 (Patient Refused) Start: 03-04-2023 HPV Vaccines (1 - 2- dose series) HPV Vaccines (1 - 2-dose series) [facility] Comment on above: Postponed from 11/02 (Patient Refused) Start: 02-04-2023 Diabetes mellitus screening Diabetes Screening [facility] Start: 01-26-2023 Lipid panel Lipid Panel [facility] Comment on above: Postponed from 11/02 (Patient Refused) Start: 12-27-2022 Influenza vaccination S [facility] Start: 12-22-2022 DTaP/Tdap/Td vaccine (7 - Td) DTaP/Tdap/Td vaccine (7 - Td) [place] Start: 12-22-2022 DTaP/Tdap/Td Vaccine s (7 - Td or Tdap) DTaP/Tdap/Td Vaccines (7 - Td or Tdap) [facility] Start: 12-22-2022 Urine microalbumin profile DTaP,Tdap,Td Vaccine (7 - Td or Tdap) [facility] Start: 10-25-2022 Influenza vaccination Influenza Vacc ine (#1) [facility] Comment on above: Postponed from 12/27 (Patient Refused) Start: 10-07-2022 End: 10-07-2022 Patient encounter procedure [facility] Start: 09-06-2022 End: 09-07-2023 Bacteria identified in Urine by Culture Urine culture (clean catch) Microbiology Routine Urinary frequency Dysuria Leukocytes in urine Expected: 09/06/2022 (Approximate), Expires: 09/07/2023 [facility] Work Phone: Comment on above: Expected: 09/06/2022 (Approximate), Expires: 09/07/2023 Start: 09-01-2022 Depresssion Monitoring Depresssion M onitoring [facility] Start: 12-27-2018 Influenza vaccination Flu vaccine (# 1) [place], [place] Start: 10-02-2018 Chlamydia screen Chlamydia screen Me [place], [place] Start: 11-02-2017 Anxiety Screening Anxiety Screening [facility] Start: 11-02-2017 Depression Screening Depression Scre ening [facility] Start: 11-02-2017 Diabetes mellitus screening Diabetes Screening [facility] Start: 11-02-2017 Hepatitis C screening Hepatitis C Sc reening [facility] Start: 11-02-2017 HIV screening HIV Screening [facility] Start: 2015 Meningococcal B Vacc ine: Consider Based On Risk (1 of 2 - Patient Seeks Protection) Meningococcal B Vaccine: Consider Based On Risk (1 of 2 - Patient Seeks Protection) [facility] Start: 11-02-2014 HIV screen HIV screen [place], [place] Start: 11-02-2014 HPV Vaccine (1 - 3-d ose series) HPV Vaccine (1 - 3-dose series) [facility] Start: 11-02-2014 HPV vaccine (1 - Fem jah 3-dose series) HPV vaccine (1 - Female 3-dose series) [place] Start: 11-02-2013 Peds To Adult Transi tion Annual Assessment Peds To Adult Transition Annual Assessment [facility] Start: 2011 Peds To Adult Transi tion Initial Discussion Peds To Adult Transition Initial Discussion [facility] Start: 11-02-2010 HPV Vaccines (1 - 2- dose series) HPV Vaccines (1 - 2-dose series) [facility] Start: 05-05-2000 COVID-19 Vaccine (#1) COVID-19 Vacci ne (#1) [facility] Start: 1999 HIV screening HIV Screening [facility] Start: 1999 Lipid panel Lipid Panel [facility] Bacteria identified in Urine by Culture URINE CULTURE Microbiology Routine Encounter for care in first trimester of first 03/22/2024 10:14 AM [facility] Chlamydia trachomatis+Neisseria gonorrhoeae DNA [Presence] in Unspecified specimen by GUS with probe detection GONORRHEA/CHLAMYDIA NAAT Lab Routine Encounter for care in first trimester of first 03/22/2024 10:14 AM [facility] End: 02-25-2025 Choriogonadotropin.beta subunit [Units/volume] in Serum or Plasma HCG QUANTITATIVE Lab Routine Encounter for test, result positive 2x per week for 2 Occurrences starting 02/26/2024 until 02/25/2025 [facility] Work Phone: Comment on above: 2x per week for 2 Oc currences starting 02/26/2024 until 02/25/2025 End: 03-04-2025 Choriogonadotropin.beta subunit [Units/volume] in Serum or Plasma HCG QUANTITATIVE Lab Routine Early stage of History of miscarriage 3x per week for 3 Occurrences starting 03/04/2024 until 03/04/2025 [facility] Work Phone: Comment on above: 3x per week for 3 Oc currences starting 03/04/2024 until 03/04/2025 End: 06-24-2025 ECHO ECHO Cardiology Routine Single umbilical artery affecting management of mother, antepartum, single gestation 1 Occurrences starting 06/24/2024 until 06/24/2025 [facility] Work Phone: Comment on above: 1 Occurrences starti ng 06/24/2024 until 06/24/2025 End: 11-08-2024 nonstress test NON-STRESS TEST Procedures Routine Chronic hypertension complicating or reason for care during childbirth (HCC) Once per week for 10 Occurrences starting 09/21/2024 until 11/08/2024 [facility] Comment on above: Once per week for 10 Occurrences starting 09/21/2024 until 11/08/2024 End: 02-23-2025 OBSTETRIC ULTRASOUND WHI OBSTETRIC ULTRASOUND WHI Anc Imaging Routine Single umbilical artery affecting management of mother, antepartum, single gestation (HCC) Once per month for 5 Occurrences starting 08/27/2024 until 02/23/2025 [facility] Comment on above: Once per month for 5 Occurrences starting 08/27/2024 until 02/23/2025 Patient Education [facility] ED False Labor OB Triage: Return to Hospital or Notify Physician if you Experience: [facility] Work Phone: Patient referral [facility] Work Phone: ROUTINE, GR OUP B STREPTOCOCCUS BY PCR ROUTINE, GROUP B STREPTOCOCCUS BY PCR Microbiology Routine 36 weeks gestation of (HCC) Supervision of high risk in third trimester (HCC) Chronic hypertension affecting (HCC) Obesity during in third trimester (HCC) 10/11/2024 11:00 AM EDT [facility] URINE OB DIP B/O URINE OB DIP B/ O Lab Routine Obesity during in third trimester (HCC) Single umbilical artery affecting management of mother, antepartum, single gestation (HCC) Screening for diabetes mellitus Supervision of high risk in third trimester (HCC) 29 weeks gestation of (HCC) Ordered: 08/27/2024 [facility] Work Phone: Comment on above: Ordered: 08/27/2024 URINE OB DIP B/O URINE OB DIP B/ O Lab Routine Supervision of high risk in third trimester (HCC) Chronic hypertension complicating or reason for care during childbirth (HCC) Obesity during in third trimester (HCC) Single umbilical artery affecting management of mother, antepartum, single gestation (HCC) 33 weeks gestation of (HCC) Ordered: 09/21/2024 [facility] Work Phone: Comment on above: Ordered: 09/21/2024 URINE OB DIP B/O URINE OB DIP B/ O Lab Routine Supervision of high risk in third trimester (HCC) Chronic hypertension affecting (HCC) Obesity during in third trimester (HCC) Single umbilical artery affecting management of mother, antepartum, single gestation (HCC) 35 weeks gestation of (HCC) Ordered: 10/04/2024 [facility] Work Phone: Comment on above: Ordered: 10/04/2024 Immunizations Immunization Date Immunization Notes Care Provider Cristine hoffman 01-06-2018 meningococcal oligosaccharide (groups A, C, Y and W-135) diphtheria toxoid conjugate vaccine (MCV4O) [facility] 12-22-2012 tetanus toxoid, redu luis diphtheria toxoid, and acellular pertussis vaccine, adsorbed [facility] 12-06-2004 diphtheria, tetanus toxoids and acellular pertussis vaccine [facility] 12-06-2004 measles, mumps, rube lla, and varicella virus vaccine [facility] 12-06-2004 poliovirus vaccine, inactivated [facility] 08-23-2003 diphtheria, tetanus toxoids and acellular pertussis vaccine [facility] 08-23-2003 haemophilus influenz ae type b vaccine, PRP-OMP conjugate [facility] 08-23-2003 hepatitis B vaccine, pediatric or pediatric/adolescent dosage [facility] 08-23-2003 measles, mumps, rube lla, and varicella virus vaccine [facility] 08-23-2003 poliovirus vaccine, inactivated [facility] 09-29-2000 diphtheria, tetanus toxoids and acellular pertussis vaccine [facility] 09-29-2000 haemophilus influenz ae type b vaccine, PRP-OMP conjugate [facility] 06-23-2000 diphtheria, tetanus toxoids and acellular pertussis vaccine [facility] 06-23-2000 haemophilus influenz ae type b vaccine, PRP-OMP conjugate [facility] 06-23-2000 poliovirus vaccine, inactivated [facility] 05-16-2000 diphtheria, tetanus toxoids and acellular pertussis vaccine [facility] 05-16-2000 haemophilus influenz ae type b vaccine, PRP-OMP conjugate [facility] 05-16-2000 poliovirus vaccine, inactivated [facility] 02-28-2000 hepatitis B vaccine, pediatric or pediatric/adolescent dosage [facility] ANDRE 1999 hepatitis B vaccine, pediatric or pediatric/adolescent dosage [facility] [place] Payers Date Payer Category Payer Self-pay 2023 Private Health Insurance [id number] 2023 Unknown [id number] 2016 Unknown [employer] xxxxxx 2016-Present [phone] 925 [place] [id number] xxxxxx [id number] 2007 Unknown [id number] Unknown [id number] 62 Unknown [id number] 62 Unknown [id number] 62 Unknown [id number] 62 Unknown [id number] 62 Unknown [id number] 62 Unknown [id number] 62 Unknown [id number] 62 Unknown [id number] 62 Unknown [id number] 62 Unknown [id number] 62 Unknown [id number] 62 Unknown [id number] 62 Unknown [id number] 62 Social History Date Type Detail Facility Start: 02-15-2019 End: 02-16-2024 Tobacco smoking status NHIS Never smoker [place], [place] Start: 02-15-2019 End: 09-24-2024 Alcohol intake No [place], [place] Start: 2000 Sex Assigned At Not on file M [place], [place] Start: 02-15-2022 End: 02-16-2024 Tobacco use and exposure Smokeless tobacco non-user [facility] Start: 09-06-2022 End: 10-11-2024 Alcohol intake Lifetime non-drinker (finding) [facility] Start: 02-15-2022 History SDOH Financial 4 [facility] Start: 02-15-2022 History SDOH Food Worry 1 [facility] Start: 02-15-2022 History SDOH Transport Med 2 [facility] Start: 10-07-2022 End: 09-24-2024 History of Social function [facility] How hard is it for y ou to pay for the very basics like food, housing, medical care, and heating Not very hard [facility] (I/We) worried wheth er (my/our) food would run out before (I/we) got money to buy more. Never true [facility] In the past 12 month s, has lack of transportation kept you from medical appointments or from getting medications? No [facility] Start: 03-18-2024 Education 15 [facility] Start: 02-16-2024 [facility] Start: 03-26-2022 End: 04-05-2022 Exposure to SARS-CoV-2 (event) Not sure [facility] Start: 2000 Sex Assigned At Female [facility] Goals Date Patient Goal Desired Activity /State Personal health goal Comment on above: Self- Management Jennifer n: Obesity/Weight Loss Patient Stated Goal: Lose the amount of weight she gained once started her antidepressant. Barriers to success: lack of motivation and medication side effects Plan for overcoming my barriers: Eat healthy and exercise. Encouraged and recommended by provider. Confidence: 11/04 Self-Management Plan: Will strive to achieve goal by 2017 goal set: 05/28/16 Patient given educational materials below via AVS. Provider Goal: Healthy diet and exercise. Patient received counseling about current lifestyle goal. Advised approximately 150 minutes of cardio, i.e treadmill, exercise in a week. Advised strive for 5 a total 5 servings of fruits and vegetables in a day. Advised a diet lower in carbohydrates and simple sugars. They need to watch consumption of bread, rice, pasta, potatoes, corn, soda, sweetened tea, lemonade, and all other sugar drinks. Patient given after visit summary which includes educational information on Nutrition and Exercise. Discussed use, benefit, and side effects of prescribed medications and barriers to medication compliance addressed, if applicable. All patient questions answered and patient voiced understanding. Patient was given a copy of this, and was advised to call if any questions. Functional Status Date Assessment Result Facility 08-15-2024 Are you deaf, or do you have serious difficulty hearing No 08/15/2024 8:27 PM EDT Puja Perez, ROSMERY [facility] 08-15-2024 Are you blind, or do you have serious difficulty seeing, even when wearing glasses No 08/15/2024 8:27 PM Puja Serrano, ROSMERY No [facility] 08-15-2024 Do you have serious difficulty walking or climbing stairs No 08/15/2024 8:27 PM Puja Serrano, ROSMERY [facility] 08-15-2024 Do you have difficul ty dressing or bathing No 08/15/2024 8:27 PM Puja Serrano, ROSMERY No [facility] 08-15-2024 Because of a physica l, mental, or emotional condition, do you have difficulty doing errands alone such as visiting a physician's office or shopping No 08/15/2024 8:27 PM Puja Serrano, ROSMERY No [facility] Mental Status Date Assessment Result Facility 08-15-2024 Because of a physica l, mental, or emotional condition, do you have serious difficulty concentrating, remembering, or making decisions No 08/15/2024 8:27 PM EDT Puja Perez RN No [facility] Clinical Notes 04-24-2022 to 10-18-2024 Deb Richard APRN.CNM - 10/18/2024 10:59 AM EDTPrenatal Quick Notes - Deb Richard APRN.CNM - 10/18/2024 10:02 AM EDTPatient Gita Garcia MD - 10/11/2024 12:03 PM EDT Note Date & Type Note Facility 10-18-2024 Note HNO ID: [id number] Author: EDB RICHARD APRN.CNM Service: ? Author Type: Plastics Supervisor Type: Progress Notes Filed: 10/18/2024 11:00 Note Text: NST SUMMARY PROVIDER ASSESSMENT AND INTERPRETATION Alon Schmitt is a 23 year old female, , who is at 37w0d with an LUIS of 11/08/2024, by Last Menstrual Period dating method. Indications for NST: Chronic HTN and Obesity Baseline: 140 Variability: Moderate Accelerations: Present 15 X 15 Decelerations: None Contractions: TOCO: None Interpretation: Category I and Reactive SIGNATURE: Deb Richard APRN.CNM [facility] 10-18-2024 History of Presen t illness Narrative NST SUMMARY PROVIDER ASSESSMENT AND INTERPRETATION Alon Schmitt is a 23 year old female, , who is at 37w0d with an LUIS of 11/08/2024, by Last Menstrual Period dating method. Indications for NST: Chronic HTN and Obesity Baseline: 140 Variability: Moderate Accelerations: Present 15 X 15 Decelerations: None Contractions: TOCO: None Interpretation: Category I and Reactive SIGNATURE: Deb Richard APRN.CNM documented in this encounter [facility] 10-18-2024 Progress note Formatting of t his note might be different from the original. S: Alon Schmitt is a 23 year old female who presents at 37 weeks gestation for a routine visit with NST. NST reactive, Cat. 1 tracing. No contractions. Patient scheduled for induction of labor tomorrow. Denies current headache, visual changes, chest pain, shortness of breath, vaginal bleeding, leakage of fluid, or dysuria. O: See flow sheet Gen: No apparent distress Abd: Gravid, nontender ASSESSMENT/PLAN: 1. Supervision of high risk in third trimester 2. Chronic hypertension affecting 3. Obesity during in third trimester 4. Single umbilical artery affecting management of mother, antepartum, single gestation 5. 37 weeks gestation of - NST reactive - Preeclampsia precautions reviewed and when to report / call office - BP parameters reviewed - Labor precautions reviewed - RTO 1 week pp for BP check Deb Richard APRN.CNM [facility] 10-18-2024 Miscellaneous Notes Formattin g of this note might be different from the original. S: Alon Schmitt is a 23 year old female who presents at 37 weeks gestation for a routine visit with NST. NST reactive, Cat. 1 tracing. No contractions. Patient scheduled for induction of labor tomorrow. Denies current headache, visual changes, chest pain, shortness of breath, vaginal bleeding, leakage of fluid, or dysuria. O: See flow sheet Gen: No apparent distress Abd: Gravid, nontender ASSESSMENT/PLAN: 1. Supervision of high risk in third trimester 2. Chronic hypertension affecting 3. Obesity during in third trimester 4. Single umbilical artery affecting management of mother, antepartum, single gestation 5. 37 weeks gestation of - NST reactive - Preeclampsia precautions reviewed and when to report / call office - BP parameters reviewed - Labor precautions reviewed - RTO 1 week pp for BP check Deb Richard APRN.CNM documented in this encounter [facility] 10-18-2024 Instructions Alyssa Donnelly MA - 10/18/2024 9:10 AM EDT SEQUENTIAL SCREENINGS [facility] offers sequential screenings for women who are interested in screenings for chromosomal abnormalities and certain defects during a . The sequential screen combines ultrasound and blood tests to determine the risk of chromosomal abnormalities, including Down's Syndrome (Trisomy 21) and Trisomy 18, as well as open neural tube defects including spina bifida. Ultrasound examination is performed between 11 weeks and 13 weeks gestational age. Blood tests are drawn after the ultrasound and again later in the between 15 and 21 weeks gestational age. Please let your physician know if you are interested in this testing. It will require an appointment with our air and hydronic balancing technician. This is not an ultrasound performed by a physician in our office during a routine visit. SIGNS AND SYMPTOMS OF LABOR 1. Contractions every 10 minutes or more often 2. Clear, pink, or brownish fluid (water) leaking from vagina 3. Feeling that baby is pushing down, pressure 4. Low, dull backache 5. Cramps that feel like a period 6. Cramps with or without diarrhea If you notice any of the above symptoms, contact our office at [phone] and ask to speak with a nurse. After hours, you can call doctors registry at [phone] OR call [facility] at [phone] and ask to have the doctor customer care consultant paged. If you consider this an emergency, dial 9-1-9 or go to your nearest emergency department. NEED HELP? Are you dealing with a violent or abusive relationship? Are you a victim of rape or sexual assult? Call [facility] ([place]) 24 hour Crisis Hotline: 948.555.1589 or 821-757-8136. MANUAL Your Guide to a Healthy manual is now on-line. Visit [email or web address] to download your free copy documented in this encounter [facility] 10-14-2024 Note Indication Evaluation of well-being Maternal obesity, BMI >45, single umbilical artery, suspected hypospadias Impression - Single, live, intrauterine . - presentation is cephalic. - The amniotic fluid volume is normal amount with an MVP of 4.7 cm and an FAITH of 10.4 cm. - The placenta is anterior, fundal. - BPP 8/8. Recommendations Continue testing as scheduled. Maternal Assessment Height 163 cm Height (ft) 5 ft Height (in) 4 in Physical Exam Initial weight (lb) 281 lb Initial BMI 48.23 kg/m Growth Overview Exam date GA BPD (mm) HC (mm) AC (mm) FL (mm) HL (mm) EFW (g) 06/24/2024 20w 3d 46.1 29% 176.3 40% 165.3 80% 33.4 66% 31.6 55% 386 70% 07/27/2024 25w 1d 60.7 26% 227.6 35% 205.7 41% 43.9 42% 741 28% 08/27/2024 29w 4d 74.9 53% 269 30% 263.4 71% 57.1 74% 1511 56% 09/21/2024 33w 1d 83.4 57% 307.7 55% 299 73% 66.7 92% 2337 69% Method Transabdominal ultrasound examination Stevens . Number of fetuses: 1 Dating LMP on: 02/02/2024 GA by LMP 36 w + 3 d LUIS by LMP: 11/08/2024 GA by prior assessment 36 w + 3 d LUIS by prior assessment: 11/08/2024 Assigned: based on stated LUIS, selected on 10/07/2024 Assigned GA 36 w + 3 d Assigned LUIS: 11/08/2024 General Evaluation Cardiac activity present. FHR 155 bpm. movements: present. Presentation: cephalic Placenta: Placental site: anterior, fundal Umbilical cord: Cord vessels: 2 vessel cord Amniotic Fluid Assessment Amount of AF: normal amount MVP 4.7 cm. FAITH 10.4 cm. Q1 2.6 cm, Q2 0.0 cm, Q3 3.1 cm, Q4 4.7 cm Biophysical Profile 2: breathing movements 2: Gross body movements 2: tone 2: Amniotic fluid volume 12/03 Biophysical profile score Performed By: Johanna Haynes RDMS Read By: Soledad Jay M.D. [facility] 10-11-2024 Note HNO ID: [id number] Author: GITA NATION MD Service: ? Author Type: Physician Type: Progress Notes Filed: 10/11/2024 12:03 Note Text: NST SUMMARY PROVIDER ASSESSMENT AND INTERPRETATION Alon Schmitt is a 23 year old female, , who is at 36w0d with an LUIS of 11/08/2024, by Last Menstrual Period dating method. Indications for NST: Chronic HTN and Obesity Baseline: 145 Variability: Moderate Accelerations: Present 15 X 15 Decelerations: None Contractions: TOCO: None Interpretation: Reactive SIGNATURE: Gita Nation MD [facility] 10-11-2024 History of Presen t illness Narrative NST SUMMARY PROVIDER ASSESSMENT AND INTERPRETATION Alon Schmitt is a 23 year old female, , who is at 36w0d with an LUIS of 11/08/2024, by Last Menstrual Period dating method. Indications for NST: Chronic HTN and Obesity Baseline: 145 Variability: Moderate Accelerations: Present 15 X 15 Decelerations: None Contractions: TOCO: None Interpretation: Reactive SIGNATURE: Gita Nation MD documented in this encounter [facility] 10-11-2024 Progress note Formatting of t his note might be different from the original. RR- VB No. LOF No. CTXS No. Movement: present. Other c/o: No. Medication list reviewed. SENSITIVE EXAMINATION CONSENT: The sensitive examination was discussed with the Patient or Patient's Authorized Asphalt Paving Supervisor. As applicable, any other physician, advance practice provider, medical student, or other health professional student that will be observing or involved in the sensitive examination for educational or training purposes was discussed with the Patient or Authorized Asphalt Paving Supervisor. The Patient or Authorized Asphalt Paving Supervisor has agreed to proceed with the sensitive examination. Physical Exam See Flow Sheet Abd: soft, nontender, gravid Ext: edema: 1+ , 2+ DTRs, no clonus A/P 36w0d Estimated Date of Delivery: 11/08/24 Assessment & Plan 36 weeks gestation of (HCC) Orders: URINE OB DIP B/O ROUTINE, GROUP B STREPTOCOCCUS BY PCR PROTEIN / CREATININE RATIO; Future COMPLETE BLOOD COUNT; Future COMPREHENSIVE METABOLIC PANEL; Future Supervision of high risk in third trimester (HCC) Orders: URINE OB DIP B/O ROUTINE, GROUP B STREPTOCOCCUS BY PCR PROTEIN / CREATININE RATIO; Future COMPLETE BLOOD COUNT; Future COMPREHENSIVE METABOLIC PANEL; Future Chronic hypertension affecting (HCC) growth scan up to date kick counts monitor for preeclampsia labs ordered today BP up and down at home. D/w her return if severe range BP not well controlled, schedule induction at 27 weeks, r/b/a reviewed and she desires to p my eed Orders: URINE OB DIP B/O ROUTINE, GROUP B STREPTOCOCCUS BY PCR PROTEIN / CREATININE RATIO; Future COMPLETE BLOOD COUNT; Future COMPREHENSIVE METABOLIC PANEL; Future Obesity during in third trimester (HCC) Orders: URINE OB DIP B/O ROUTINE, GROUP B STREPTOCOCCUS BY PCR PROTEIN / CREATININE RATIO; Future COMPLETE BLOOD COUNT; Future COMPREHENSIVE METABOLIC PANEL; Future Single umbilical artery affecting management of mother, antepartum, single gestation ([facility]) Orders: URINE OB DIP B/O PROTEIN / CREATININE RATIO; Future COMPLETE BLOOD COUNT; Future COMPREHENSIVE METABOLIC PANEL; Future declines tdap after discussion today ICCS risk calculator- 54% for c/s Gita Nation M.D. T [facility] 10-11-2024 Miscellaneous Notes Formattin g of this note might be different from the original. RR- VB No. LOF No. CTXS No. Movement: present. Other c/o: No. Medication list reviewed. SENSITIVE EXAMINATION CONSENT: The sensitive examination was discussed with the Patient or Patient's Authorized Asphalt Paving Supervisor. As applicable, any other physician, advance practice provider, medical student, or other health professional student that will be observing or involved in the sensitive examination for educational or training purposes was discussed with the Patient or Authorized Asphalt Paving Supervisor. The Patient or Authorized Asphalt Paving Supervisor has agreed to proceed with the sensitive examination. Physical Exam See Flow Sheet Abd: soft, nontender, gravid Ext: edema: 1+ , 2+ DTRs, no clonus A/P 36w0d Estimated Date of Delivery: 11/08/24 Assessment & Plan 36 weeks gestation of (HCC) Orders: URINE OB DIP B/O ROUTINE, GROUP B STREPTOCOCCUS BY PCR PROTEIN / CREATININE RATIO; Future COMPLETE BLOOD COUNT; Future COMPREHENSIVE METABOLIC PANEL; Future Supervision of high risk in third trimester (HCC) Orders: URINE OB DIP B/O ROUTINE, GROUP B STREPTOCOCCUS BY PCR PROTEIN / CREATININE RATIO; Future COMPLETE BLOOD COUNT; Future COMPREHENSIVE METABOLIC PANEL; Future Chronic hypertension affecting (HCC) growth scan up to date kick counts monitor for preeclampsia labs ordered today BP up and down at home. D/w her return if severe range BP not well controlled, schedule induction at 27 weeks, r/b/a reviewed and she desires to p my eed Orders: URINE OB DIP B/O ROUTINE, GROUP B STREPTOCOCCUS BY PCR PROTEIN / CREATININE RATIO; Future COMPLETE BLOOD COUNT; Future COMPREHENSIVE METABOLIC PANEL; Future Obesity during in third trimester ([facility]) Orders: URINE OB DIP B/O ROUTINE, GROUP B STREPTOCOCCUS BY PCR PROTEIN / CREATININE RATIO; Future COMPLETE BLOOD COUNT; Future COMPREHENSIVE METABOLIC PANEL; Future Single umbilical artery affecting management of mother, antepartum, single gestation ([facility]) Orders: URINE OB DIP B/O PROTEIN / CREATININE RATIO; Future COMPLETE BLOOD COUNT; Future COMPREHENSIVE METABOLIC PANEL; Future declines tdap after discussion today ICCS risk calculator- 54% for c/s Gita Nation M.D. documented in this encounter [facility] 10-11-2024 Instructions Jeanne Espinosa MA - 10/11/2024 10:36 AM EDT SEQUENTIAL SCREENINGS The [facility] offers sequential screenings for women who are interested in screenings for chromosomal abnormalities and certain defects during a . The sequential screen combines ultrasound and blood tests to determine the risk of chromosomal abnormalities, including Down's Syndrome (Trisomy 21) and Trisomy 18, as well as open neural tube defects including spina bifida. Ultrasound examination is performed between 11 weeks and 13 weeks gestational age. Blood tests are drawn after the ultrasound and again later in the between 15 and 21 weeks gestational age. Please let your physician know if you are interested in this testing. It will require an appointment with our air and hydronic balancing technician. This is not an ultrasound performed by a physician in our office during a routine visit. SIGNS AND SYMPTOMS OF LABOR 1. Contractions every 10 minutes or more often 2. Clear, pink, or brownish fluid (water) leaking from vagina 3. Feeling that baby is pushing down, pressure 4. Low, dull backache 5. Cramps that feel like a period 6. Cramps with or without diarrhea If you notice any of the above symptoms, contact our office at [phone] and ask to speak with a nurse. After hours, you can call doctors registry at [phone] OR call [facility] at [phone] and ask to have the doctor customer care consultant paged. If you consider this an emergency, dial 7--3 or go to your nearest emergency department. NEED HELP? Are you dealing with a violent or abusive relationship? Are you a victim of rape or sexual assult? Call [facility] ([place]) 24 hour Crisis Hotline: 262.889.5515 or 710-657-3355. MANUAL Your Guide to a Healthy manual is now on-line. Visit [email or web address] to download your free copy documented in this encounter [facility] 10-08-2024 Note Indication Evaluation of well-being Maternal obesity, BMI >45, single umbilical artery, suspected hyposadias Impression - Single, live, intrauterine . - presentation is cephalic. - The amniotic fluid volume is normal amount with an MVP of 5.3 cm and an FAITH of 16.3 cm. - The placenta is anterior, fundal. - BPP 8/8. Recommendations Continue testing as scheduled. Maternal Assessment Height 163 cm Height (ft) 5 ft Height (in) 4 in Physical Exam Initial weight (lb) 281 lb Initial BMI 48.23 kg/m Maternal assessment other: 2 Para 0 REMOTE READ Growth Overview Exam date GA BPD (mm) HC (mm) AC (mm) FL (mm) HL (mm) EFW (g) 06/24/2024 20w 3d 46.1 29% 176.3 40% 165.3 80% 33.4 66% 31.6 55% 386 70% 07/27/2024 25w 1d 60.7 26% 227.6 35% 205.7 41% 43.9 42% 741 28% 08/27/2024 29w 4d 74.9 53% 269 30% 263.4 71% 57.1 74% 1511 56% 09/21/2024 33w 1d 83.4 57% 307.7 55% 299 73% 66.7 92% 2337 69% Method Transabdominal ultrasound examination Stevens . Number of fetuses: 1 Dating LMP on: 02/02/2024 GA by LMP 35 w + 3 d LUIS by LMP: 11/08/2024 GA by prior assessment 35 w + 3 d LUIS by prior assessment: 11/08/2024 Assigned: based on stated LUIS, selected on 10/07/2024 Assigned GA 35 w + 3 d Assigned LUIS: 11/08/2024 General Evaluation Cardiac activity present. FHR 140 bpm. movements: present. Presentation: cephalic Placenta: Placental site: anterior, fundal Umbilical cord: Cord vessels: 2 vessel cord Amniotic Fluid Assessment Amount of AF: normal amount MVP 5.3 cm. FAITH 16.3 cm. Q1 5.2 cm, Q2 5.3 cm, Q3 2.3 cm, Q4 3.5 cm Biophysical Profile 2: breathing movements 2: Gross body movements 2: tone 2: Amniotic fluid volume 12/03 Biophysical profile score Performed By: Nicole Chiang RDMS, RVT Read By: Soledad Jay M.D. [facility] 10-07-2024 Telephone encount er Note Agree with eval for severe range BP's on L&D thanks [facility] 10-07-2024 Miscellaneous Notes Formattin g of this note might be different from the original. Agree with eval for severe range BP's on L&D thanks 35w3d Called and spoke with patient regarding her US appt today. Patient reported that she took her BP today and it's been elevated. Took Procardia at 11pm and first dose of Labetalol at 9am. @ 0950 BP 150/96 @ 1005 BP 162/104 Denies RUQ pain or WEST. States she is having blurry vision. Advised that patient go to L&D for evaluation and not wait until her appointment today for BP check. States she could be there in 2.5 hours. 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 Stressed the importance and potential seriousness of an elevated BP. Voiced understanding. Will go to L&D. Called and notified L&D nurse. Niru Rodas RN documented in this encounter [facility] 10-07-2024 Telephone encount er Note 35w3d Called and spoke with patient regarding her US appt today. Patient reported that she took her BP today and it's been elevated. Took Procardia at 11pm and first dose of Labetalol at 9am. @ 0950 BP 150/96 @ 1005 BP 162/104 Denies RUQ pain or WEST. States she is having blurry vision. Advised that patient go to L&D for evaluation and not wait until her appointment today for BP check. States she could be there in 2.5 hours. 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 Stressed the importance and potential seriousness of an elevated BP. Voiced understanding. Will go to L&D. Called and notified L&D nurse. Niru Rodas RN [facility] 10-04-2024 Note HNO ID: [id number] Author: THEO BOYLE MD Service: ? Author Type: Physician Type: Progress Notes Filed: 10/04/2024 10:17 Note Text: NST SUMMARY PROVIDER ASSESSMENT AND INTERPRETATION Indications for NST: Obesity Baseline: 140 Variability: Moderate Accelerations: Present 15 X 15 Decelerations: None Interpretation: Category I SIGNATURE: Theo Boyle MD [facility] 10-04-2024 History of Presen t illness Narrative NST SUMMARY PROVIDER ASSESSMENT AND INTERPRETATION Indications for NST: Obesity Baseline: 140 Variability: Moderate Accelerations: Present 15 X 15 Decelerations: None Interpretation: Category I SIGNATURE: Theo Boyle MD documented in this encounter [facility] 10-04-2024 Instructions Sandra Robledo MA - 10/04/2024 9:21 AM EDT SEQUENTIAL SCREENINGS The [facility] offers sequential screenings for women who are interested in screenings for chromosomal abnormalities and certain defects during a . The sequential screen combines ultrasound and blood tests to determine the risk of chromosomal abnormalities, including Down's Syndrome (Trisomy 21) and Trisomy 18, as well as open neural tube defects including spina bifida. Ultrasound examination is performed between 11 weeks and 13 weeks gestational age. Blood tests are drawn after the ultrasound and again later in the between 15 and 21 weeks gestational age. Please let your physician know if you are interested in this testing. It will require an appointment with our air and hydronic balancing technician. This is not an ultrasound performed by a physician in our office during a routine visit. SIGNS AND SYMPTOMS OF LABOR 1. Contractions every 10 minutes or more often 2. Clear, pink, or brownish fluid (water) leaking from vagina 3. Feeling that baby is pushing down, pressure 4. Low, dull backache 5. Cramps that feel like a period 6. Cramps with or without diarrhea If you notice any of the above symptoms, contact our office at [phone] and ask to speak with a nurse. After hours, you can call doctors registry at [phone] OR call [facility] at [phone] and ask to have the doctor customer care consultant paged. If you consider this an emergency, dial 7-3-5 or go to your nearest emergency department. NEED HELP? Are you dealing with a violent or abusive relationship? Are you a victim of rape or sexual assult? Call [facility] ([facility] 24 hour Crisis Hotline: 854.766.8152 or 913-632-3486. MANUAL Your Guide to a Healthy manual is now on-line. Visit [email or web address] to download your free copy documented in this encounter [facility] 09-30-2024 Note HNO ID: [id number] Author: NIRU HARRINGTON MD Service: ? Author Type: Physician Type: Progress Notes Filed: 09/30/2024 13:42 Note Text: NST SUMMARY PROVIDER ASSESSMENT AND INTERPRETATION Indications for NST: Chronic HTN and Other: 2VC Baseline: 150 Variability: Moderate Accelerations: Present 15 X 15 Decelerations: None Interpretation: Reactive SIGNATURE: Niru Harrington MD [facility] 09-30-2024 History of Presen t illness Narrative NST SUMMARY PROVIDER ASSESSMENT AND INTERPRETATION Indications for NST: Chronic HTN and Other: 2VC Baseline: 150 Variability: Moderate Accelerations: Present 15 X 15 Decelerations: None Interpretation: Reactive SIGNATURE: Niru Harrington MD documented in this encounter [facility] 09-30-2024 Progress note Formatting of t his note might be different from the original. S: Alon Schmitt is a 23 year old female who presents at 11/08/2024, by Last Menstrual Period for a routine visit. Denies headache, visual changes, chest pain, shortness of breath, vaginal bleeding, leakage of fluid, or dysuria. Feeling well, no complaints. Good movement, No contractions O: See flow sheet Gen: No apparent distress Abd: Gravid, nontender At Home BP better since starting labetalol. Continues with procardia NST reactive Schedule for BPP and NST next week Anticipate IOL at 37 ASSESSMENT/PLAN: 1. Supervision of high risk in third trimester ([facility]) - ICD9: V23.9, ICD10: O09.93 (primary diagnosis) - URINE OB DIP B/O 2. Chronic hypertension complicating or reason for care during childbirth ([facility]) - ICD9: 642.01, ICD10: O10.92 Improved - URINE OB DIP B/O 3. Obesity during in third trimester ([facility]) - ICD9: 649.13, ICD10: O99.213 NSTS weekly Growth q 4 - URINE OB DIP B/O 4. Single umbilical artery affecting management of mother, antepartum, single gestation ([facility]) - ICD9: V23.89, ICD10: O09.899 - URINE OB DIP B/O 5. 34 weeks gestation of ([facility]) - ICD9: V22.2, ICD10: Z3A.34 precautions - URINE OB DIP B/O Niru Harrington MD [facility] 09-30-2024 Miscellaneous Notes Formattin g of this note might be different from the original. S: Alon Schmitt is a 23 year old female who presents at 11/08/2024, by Last Menstrual Period for a routine visit. Denies headache, visual changes, chest pain, shortness of breath, vaginal bleeding, leakage of fluid, or dysuria. Feeling well, no complaints. Good movement, No contractions O: See flow sheet Gen: No apparent distress Abd: Gravid, nontender At Home BP better since starting labetalol. Continues with procardia NST reactive Schedule for BPP and NST next week Anticipate IOL at 37 ASSESSMENT/PLAN: 1. Supervision of high risk in third trimester ([facility]) - ICD9: V23.9, ICD10: O09.93 (primary diagnosis) - URINE OB DIP B/O 2. Chronic hypertension complicating or reason for care during childbirth ([facility]) - ICD9: 642.01, ICD10: O10.92 Improved - URINE OB DIP B/O 3. Obesity during in third trimester ([facility]) - ICD9: 649.13, ICD10: O99.213 NSTS weekly Growth q 4 - URINE OB DIP B/O 4. Single umbilical artery affecting management of mother, antepartum, single gestation ([facility]) - ICD9: V23.89, ICD10: O09.899 - URINE OB DIP B/O 5. 34 weeks gestation of ([facility]) - ICD9: V22.2, ICD10: Z3A.34 precautions - URINE OB DIP B/O Niru Harrington MD documented in this encounter [facility] 09-30-2024 Instructions Brandie Coburn MA - 09/30/2024 10:04 AM EDT SEQUENTIAL SCREENINGS The [facility] offers sequential screenings for women who are interested in screenings for chromosomal abnormalities and certain defects during a . The sequential screen combines ultrasound and blood tests to determine the risk of chromosomal abnormalities, including Down's Syndrome (Trisomy 21) and Trisomy 18, as well as open neural tube defects including spina bifida. Ultrasound examination is performed between 11 weeks and 13 weeks gestational age. Blood tests are drawn after the ultrasound and again later in the between 15 and 21 weeks gestational age. Please let your physician know if you are interested in this testing. It will require an appointment with our air and hydronic balancing technician. This is not an ultrasound performed by a physician in our office during a routine visit. SIGNS AND SYMPTOMS OF LABOR 1. Contractions every 10 minutes or more often 2. Clear, pink, or brownish fluid (water) leaking from vagina 3. Feeling that baby is pushing down, pressure 4. Low, dull backache 5. Cramps that feel like a period 6. Cramps with or without diarrhea If you notice any of the above symptoms, contact our office at [phone] and ask to speak with a nurse. After hours, you can call doctors registry at [phone] OR call [facility] at [phone] and ask to have the doctor customer care consultant paged. If you consider this an emergency, dial 9-1-5 or go to your nearest emergency department. NEED HELP? Are you dealing with a violent or abusive relationship? Are you a victim of rape or sexual assult? Call [facility] ([place]) 24 hour Crisis Hotline: 972.529.5606 or 930-794-0064. MANUAL Your Guide to a Healthy manual is now on-line. Visit [email or web address] to download your free copy documented in this encounter [facility] 09-28-2024 Note HNO ID: [id number] Author: RACHEL MOSQUEDA APRN.CNM Service: ? Author Type: Plastics Supervisor Type: Progress Notes Filed: 09/28/2024 12:47 Note Text: NST SUMMARY PROVIDER ASSESSMENT AND INTERPRETATION Alon Schmitt is a 23 year old female, , who is at 34w1d with an LUIS of 11/08/2024, by Last Menstrual Period dating method. Indications for NST: Chronic HTN Baseline: 145 Variability: Moderate Accelerations: Present 15 X 15 Decelerations: None Contractions: TOCO: None Interpretation: Reactive SIGNATURE: Rachel Mosqueda APRN.CNM [facility] 09-28-2024 History of Presen t illness Narrative NST SUMMARY PROVIDER ASSESSMENT AND INTERPRETATION Alon Schmitt is a 23 year old female, , who is at 34w1d with an LUIS of 11/08/2024, by Last Menstrual Period dating method. Indications for NST: Chronic HTN Baseline: 145 Variability: Moderate Accelerations: Present 15 X 15 Decelerations: None Contractions: TOCO: None Interpretation: Reactive SIGNATURE: Rachel Mosqueda APRN.CNM documented in this encounter [facility] 09-28-2024 Progress note Formatting of t his note might be different from the original. EDELMIRA-NST only, reactive. Rachel Mosqueda APRN.CNM [facility] 09-28-2024 Miscellaneous Notes Formattin g of this note might be different from the original. EDELMIRA-NST only, reactive. Rachel Mosqueda APRN.CNM documented in this encounter [facility] 09-24-2024 Jamari Syed MA - 09/24/2024 2:36 PM EDT SEQUENTIAL SCREENINGS The [facility] offers sequential screenings for women who are interested in screenings for chromosomal abnormalities and certain defects during a . The sequential screen combines ultrasound and blood tests to determine the risk of chromosomal abnormalities, including Down's Syndrome (Trisomy 21) and Trisomy 18, as well as open neural tube defects including spina bifida. Ultrasound examination is performed between 11 weeks and 13 weeks gestational age. Blood tests are drawn after the ultrasound and again later in the between 15 and 21 weeks gestational age. Please let your physician know if you are interested in this testing. It will require an appointment with our air and hydronic balancing technician. This is not an ultrasound performed by a physician in our office during a routine visit. SIGNS AND SYMPTOMS OF LABOR 1. Contractions every 10 minutes or more often 2. Clear, pink, or brownish fluid (water) leaking from vagina 3. Feeling that baby is pushing down, pressure 4. Low, dull backache 5. Cramps that feel like a period 6. Cramps with or without diarrhea If you notice any of the above symptoms, contact our office at [phone] and ask to speak with a nurse. After hours, you can call doctors registry at [phone] OR call [facility] at [phone] and ask to have the doctor customer care consultant paged. If you consider this an emergency, dial -[phone] or go to your nearest emergency department. NEED HELP? Are you dealing with a violent or abusive relationship? Are you a victim of rape or sexual assult? Call [facility] ([place]) 24 hour Crisis Hotline: 173.173.4572 or 974-580-5343. MANUAL Your Guide to a Healthy manual is now on-line. Visit [email or web address] to download your free copy documented in this encounter [facility] 09-21-2024 Note HNO ID: [id number] Author: SANDRA ROBLEDO MA Service: ? Author Type: Char House Supervisor Type: Progress Notes Filed: 09/21/2024 11:58 Note Text: Demetrius TODD 127 6126/82 5127 3 2 1135/80 [facility] 09-21-2024 History of Presen t illness Narrative Demetrius TODD [id number] 6126/82 5127/84 [id number] 2137 1135/80 documented in this encounter [facility] 09-21-2024 Progress note Formatting of t his note might be different from the original. S: Alon Schmitt is a 23 year old female who presents at 11/08/2024, by Last Menstrual Period for a routine visit. Denies, visual changes, chest pain, shortness of breath, vaginal bleeding, leakage of fluid, or dysuria. Feeling well, no complaints. Good movement, No contractions Bps up and down at home. Is taking Procardia. Headache on and off. Notices this more with activity. Dx as CHTN Demetrius BP today 127/82 Discussed adding labetalol Considering stopping work but also not one who will sit still. Discussed waiting 10-15 before taking BP and stopping taking q 2 hours. In AM and PM is enough or if she is not feeling well. Discussed IOL at 37 weeks O: See flow sheet Gen: No apparent distress Abd: Gravid, nontender EFW 69% BPP 12/03 FAITH 14.1 ASSESSMENT/PLAN: 1. Supervision of high risk in third trimester ([facility]) - ICD9: V23.9, ICD10: O09.93 (primary diagnosis) - URINE OB DIP B/O 2. Chronic hypertension complicating or reason for care during childbirth ([facility]) - ICD9: 642.01, ICD10: O10.92 - URINE OB DIP B/O - NON-STRESS TEST 3. Obesity during in third trimester ([facility]) - ICD9: 649.13, ICD10: O99.213 Weekly NSTs - URINE OB DIP B/O 4. Single umbilical artery affecting management of mother, antepartum, single gestation [facility] [facility]) - ICD9: V23.89, ICD10: O09.899 EFW 69% - URINE OB DIP B/O 5. 33 weeks gestation of ([facility]) - ICD9: V22.2, ICD10: Z3A.33 - URINE OB DIP B/O Niru Harrington MD [facility] 09-21-2024 Miscellaneous Notes Formattin g of this note might be different from the original. S: Alon Schmitt is a 23 year old female who presents at 11/08/2024, by Last Menstrual Period for a routine visit. Denies, visual changes, chest pain, shortness of breath, vaginal bleeding, leakage of fluid, or dysuria. Feeling well, no complaints. Good movement, No contractions Bps up and down at home. Is taking Procardia. Headache on and off. Notices this more with activity. Dx as CHTN Demetrius BP today 127/82 Discussed adding labetalol Considering stopping work but also not one who will sit still. Discussed waiting 10-15 before taking BP and stopping taking q 2 hours. In AM and PM is enough or if she is not feeling well. Discussed IOL at 37 weeks O: See flow sheet Gen: No apparent distress Abd: Gravid, nontender EFW 69% BPP 8/8 FAITH 14.1 ASSESSMENT/PLAN: 1. Supervision of high risk in third trimester ([facility]) - ICD9: V23.9, ICD10: O09.93 (primary diagnosis) - URINE OB DIP B/O 2. Chronic hypertension complicating or reason for care during childbirth ([facility]) - ICD9: 642.01, ICD10: O10.92 - URINE OB DIP B/O - NON-STRESS TEST 3. Obesity during in third trimester ([facility]) - ICD9: 649.13, ICD10: O99.213 Weekly NSTs - URINE OB DIP B/O 4. Single umbilical artery affecting management of mother, antepartum, single gestation ([facility]) - ICD9: V23.89, ICD10: O09.899 EFW 69% - URINE OB DIP B/O 5. 33 weeks gestation of ([facility]) - ICD9: V22.2, ICD10: Z3A.33 - URINE OB DIP B/O Niru Harrington MD documented in this encounter [facility] 09-21-2024 Note Indication Evaluation of growth, Evaluation of well-being. Maternal obesity, BMI >45, single umbilical artery. Suspected hypospadias. Impression - Single, live, intrauterine . - presentation is cephalic. - The biometry is consistent with the assigned gestational dating. - The EFW is 2337 g, at the 69%. AC is at the 73%. - The amniotic fluid volume is normal amount with an MVP of 5.2 cm and an FAITH of 14.1 cm. - The placenta is anterior. - BPP 12/03. - Evaluation of genitalia limited by position today, previously characterized hypospadias. No malformations visualized on a limited survey as detailed below. Recommendations Growth in one month. Maternal Assessment Height 163 cm Height (ft) 5 ft Height (in) 4 in Physical Exam Initial weight (lb) 281 lb Initial BMI 48.23 kg/m Maternal assessment other: 2 Para 0 Method Color Doppler examination. Transabdominal ultrasound examination. View: Suboptimal view: limited by maternal body habitus. Suboptimal view: limited by position Stevens . Number of fetuses: 1 Dating LMP on: 02/02/2024 GA by LMP 33 w + 1 d LUIS by LMP: 11/08/2024 GA by prior assessment 33 w + 1 d LUIS by prior assessment: 11/08/2024 Ultrasound examination on: 09/21/2024 GA by U/S based upon: AC, BPD, Femur, HC GA by U/S 33 w + 5 d LUIS by U/S: 11/04/2024 Assigned: based on stated LUIS, selected on 07/27/2024 Assigned GA 33 w + 1 d Assigned LUIS: 11/08/2024 General Evaluation Cardiac activity present. FHR 152 bpm. movements: present. Presentation: cephalic Placenta: Placental site: anterior Umbilical cord: Cord vessels: single umbilical artery Amniotic fluid: Amount of AF: normal amount. MVP 5.2 cm. FAITH 14.1 cm. Q1 0.0 cm, Q2 5.2 cm, Q3 4.3 cm, Q4 4.6 cm Biophysical Profile 2: breathing movements 2: Gross body movements 2: tone 2: Amniotic fluid volume 12/03 Biophysical profile score Growth Overview Exam date GA BPD (mm) HC (mm) AC (mm) FL (mm) HL (mm) EFW (g) 06/24/2024 20w 3d 46.1 29% 176.3 40% 165.3 80% 33.4 66% 31.6 55% 386 70% 07/27/2024 25w 1d 60.7 26% 227.6 35% 205.7 41% 43.9 42% 741 28% 08/27/2024 29w 4d 74.9 53% 269 30% 263.4 71% 57.1 74% 1511 56% 09/21/2024 33w 1d 83.4 57% 307.7 55% 299 73% 66.7 92% 2337 69% Biometry Standard BPD 83.4 mm 33w 4d 57% Hadlock OFD 106.6 mm 31w 6d 33% Nicolaides HC 307.7 mm 33w 3d 55% Delvin AC 299.0 mm 33w 6d 73% Hadlock Femur 66.7 mm 34w 0d 92% Delvin EFW 2,337 g 33w 6d 69% Hadlock EFW (lb) 5 lb EFW (oz) 2 oz EFW by: Hadlock (HC-AC-FL) Extremities / Bony Struc FL / HC 0.22 Other Structures FHR 152 bpm Anatomy Lateral ventricles: suboptimally visualized Cavum septi pellucidi: suboptimally visualized Cerebellum: suboptimally visualized Cisterna magna: suboptimally visualized 4-chamber view: suboptimally visualized RVOT view: suboptimally visualized LVOT view: suboptimally visualized 3-vessel view: suboptimally visualized Heart / Thorax Situs: situs solitus (normal) Diaphragm: suboptimally visualized Stomach: normal Kidneys: normal Bladder: normal Performed By: Chelsea Lay RDMS Read By: Concepcion Ricci M.D. [facility] 09-21-2024 Instructions Sandra Robledo MA - 09/21/2024 8:41 AM EDT SEQUENTIAL SCREENINGS The [facility] offers sequential screenings for women who are interested in screenings for chromosomal abnormalities and certain defects during a . The sequential screen combines ultrasound and blood tests to determine the risk of chromosomal abnormalities, including Down's Syndrome (Trisomy 21) and Trisomy 18, as well as open neural tube defects including spina bifida. Ultrasound examination is performed between 11 weeks and 13 weeks gestational age. Blood tests are drawn after the ultrasound and again later in the between 15 and 21 weeks gestational age. Please let your physician know if you are interested in this testing. It will require an appointment with our air and hydronic balancing technician. This is not an ultrasound performed by a physician in our office during a routine visit. SIGNS AND SYMPTOMS OF LABOR 1. Contractions every 10 minutes or more often 2. Clear, pink, or brownish fluid (water) leaking from vagina 3. Feeling that baby is pushing down, pressure 4. Low, dull backache 5. Cramps that feel like a period 6. Cramps with or without diarrhea If you notice any of the above symptoms, contact our office at [phone] and ask to speak with a nurse. After hours, you can call doctors registry at [phone] OR call [facility] at [phone] and ask to have the doctor customer care consultant paged. If you consider this an emergency, dial 9--6 or go to your nearest emergency department. NEED HELP? Are you dealing with a violent or abusive relationship? Are you a victim of rape or sexual assult? Call [facility] ([place]) 24 hour Crisis Hotline: 843.466.8193 or 902-279-0715. MANUAL Your Guide to a Healthy manual is now on-line. Visit [email or web address] [email or web address] to download your free copy documented in this encounter [facility] 09-14-2024 Note HNO ID: [id number] Author: JESSI RAMIREZ MD Service: ? Author Type: Physician Type: Progress Notes Filed: 09/14/2024 15:59 Note Text: DEMETRIUS BP A- 129/83 p-125 6- 136/83 p-127 5-131/82 p-118 4-129/83 p-127 3-125/85 p-127 2-127/82 p- 127 1-126/81 p- 127 [facility] 09-13-2024 Telephone encount er Note Patient was seen on L&D for elevated BP's. No symptoms of pre e and labs were WNL. Chart reviewed and consistent with cHTN. Patient states when she is seen by her PCP her BP is usually elevated, but it does come down. Recently in the when she is working her BP is 160's/100's at work. Discussed cHTN and Procardia started. Needs BP check in 24-48 hours in the office thanks [facility] 09-13-2024 Miscellaneous Notes Formattin g of this note might be different from the original. Patient was seen on L&D for elevated BP's. No symptoms of pre e and labs were WNL. Chart reviewed and consistent with cHTN. Patient states when she is seen by her PCP her BP is usually elevated, but it does come down. Recently in the when she is working her BP is 160's/100's at work. Discussed cHTN and Procardia started. Needs BP check in 24-48 hours in the office thanks documented in this encounter [facility] 09-13-2024 Evaluation note Diagnosis Onset Date Resolution 32 weeks gestation of acute September 13, 2024 5 :58pm Elevated blood pressure affecting in third trimester, antepartum acute September 13, 2024 5:58pm [facility] Work Phone: 1(775) 583-909405-16-2025 Progress note* Quick Notes - Niru Harrington MD - 09/10/2024 2:44 PM EDT S: Alon Schmitt is a 23 year old female who presents at 11/08/2024, by Last Menstrual Period for a routine visit. Denies headache, visual changes, chest pain, shortness of breath, vaginal bleeding,leakage of fluid, or dysuria. Feeling well, no complaints. Good movement, No contractions O: See flow sheet Gen: No apparent distress Abd: Gravid, nontender Growth scheduled next week ASSESSMENT/PLAN: 1. Supervision of high risk in third trimester ([facility]) - ICD9: V23.9, ICD10: O09.93 (primary diagnosis) PTL precautions 2. Obesity during in third trimester ([facility]) - ICD9: 649.13, ICD10: O99.213 Nsts weekly at 32 Growth q 4 3. Single umbilical artery affecting management of mother, antepartum, single gestation ([facility]) - ICD9: V23.89, ICD10: O09.899 Nsts weekly at 32 Growth q 4 4. 31 weeks gestation of ([facility]) - ICD9: V22.2, ICD10: Z3A.31 Niru Harrington MD [facility]05-16-2025 Miscellaneous Notes* Quick Notes - Niru Harrington MD - 09/10/2024 2:44 PM EDT S: Alon Schmitt is a 23 year old female who presents at 11/08/2024, by Last Menstrual Period for a routine visit. Denies headache, visual changes, chest pain, shortness of breath, vaginal bleeding,leakage of fluid, or dysuria. Feeling well, no complaints. Good movement, No contractions O: See flow sheet Gen: No apparent distress Abd: Gravid, nontender Growth scheduled next week ASSESSMENT/PLAN: 1. Supervision of high risk in third trimester ([facility]) - ICD9: V23.9, ICD10: O09.93 (primary diagnosis) PTL precautions 2. Obesity during in third trimester ([facility]) - ICD9: 649.13, ICD10: O99.213 Nsts weekly at 32 Growth q 4 3. Single umbilical artery affecting management of mother, antepartum, single gestation ([facility]) - ICD9: V23.89, ICD10: O09.899 Nsts weekly at 32 Growth q 4 4. 31 weeks gestation of ([facility]) - ICD9: V22.2, ICD10: Z3A.31 Niru Harrington MD documented [facility] Instructions* Patient Instructions* Brandie Coburn MA - 09/10/2024 1:58 PM EDT SEQUENTIAL SCREENINGS The [facility] offers sequential screenings for women who are interested in screenings for chromosomal abnormalities and certain defects during a . The sequential screen combinesultrasound and blood tests to determine the risk of chromosomal abnormalities, including Down's Syndrome (Trisomy 21) and Trisomy 18, as well as open neural tube defects including spina bifida. Ultrasound examination is performed between 11 weeks and 13 weeks gestational age. Blood tests are drawn after the ultrasound and again later in the between 15 and 21 weeks gestational age. Please let your physician know if you are interested in this testing. It will require an appointment withour air and hydronic balancing technician. This is not an ultrasound performed by a physician in our office during a routine visit. SIGNS AND SYMPTOMS OF LABOR 1. Contractions every 10 minutes or more often 2. Clear, pink, or brownish fluid (water) leaking from vagina 3. Feeling that baby is pushing down, pressure 4. Low, dull backache 5. Cramps that feel like a period 6. Cramps with or without diarrhea If you notice any of the above symptoms, contact our office at [phone] and ask to speak with anurse. After hours, you can call doctors registry at [phone] OR call [facility] at [phone] ask to have the doctor customer care consultant paged. If you consider this an emergency, dial 91-8 or go to your nearest emergency department. NEED HELP? Are you dealing with a violent or abusive relationship? Are you a victim of rape or sexual assult? Call [facility] [place] ([place]) 24 hour Crisis Hotline: 231.857.9061 or 561-241-5982. MANUAL Your Guide to a Healthy manual is now on-line. Visit [email or web address] to download your free copy documented in [facility] encounterL[facility] Note Indication Evaluation of growth Maternal obesity, BMI >45, single umbilical artery Impression - Single, live, intrauterine . - The biometry is consistent with the assigned gestational dating. - The EFW is 1511 g, at the 56%. AC is at the 71%. - Amniotic fluid volume is normal amount with an MVP of 5.1 cm and FAITH of 15.6 cm. - The placenta is anterior, fundal. - Evaluation of genitalia limited by position today, previously characterized hypospadias. No malformations visualized on a limited survey as detailed below. Recommendations care center following Monthly growth ultrasound Maternal Assessment Height 163 cm Height (ft) 5 ft Height (in) 4 in Physical Exam Initial weight (lb) 281 lb Initial BMI 48.23 kg/m Maternal assessment other: 2 Para 0 REMOTE READ Method Transabdominal ultrasound examination Stevens . Number of fetuses: 1 Dating LMP on: 02/02/2024 GA by LMP 29 w + 4 d LUIS by LMP: 11/08/2024 GA by prior assessment 29 w + 4 d LUIS by prior assessment: 11/08/2024 Ultrasound examination on: 08/27/2024 GA by U/S based upon: AC, BPD, Femur, HC GA by U/S 29 w + 6 d LUIS by U/S: 11/06/2024 Assigned: based on stated LUIS, selected on 07/27/2024 Assigned GA 29 w + 4 d Assigned LUIS: 11/08/2024 General Evaluation Cardiac activity present. FHR 157 bpm. movements: present. Presentation: cephalic Placenta: Placental site: anterior, fundal Umbilical cord: Cord vessels: 2 vessel cord Amniotic fluid: Amount of AF: normal amount. MVP 5.1 cm. FAITH 15.6 cm. Q1 2.6 cm, Q2 4.5 cm, Q3 5.1 cm, Q4 3.4 cm Growth Overview Exam date GA BPD (mm) HC (mm) AC (mm) FL (mm) HL (mm) EFW (g) 06/24/2024 20w 3d 46.1 29% 176.3 40% 165.3 80% 33.4 66% 31.6 55% 386 70% 07/27/2024 25w 1d 60.7 26% 227.6 35% 205.7 41% 43.9 42% 741 28% 08/27/2024 29w 4d 74.9 53% 269 30% 263.4 71% 57.1 74% 1511 56% Biometry Standard BPD 74.9 mm 30w 0d 53% Hadlock OFD 93.2 mm 27w 4d 12% Nicolaides HC 269.0 mm 28w 5d 30% Delvin AC 263.4 mm 30w 3d 71% Hadlock Femur 57.1 mm 30w 0d 74% Delvin EFW 1,511 g 29w 5d 56% Hadlock EFW (lb) 3 lb EFW (oz) 5 oz EFW by: Hadlock (HC-AC-FL) Extended Coconut Boiler 4.6 mm Extremities / Bony Struc FL / HC 0.21 Other Structures FHR 157 bpm Anatomy Lateral ventricles: normal Cavum septi pellucidi: normal Cerebellum: normal Cisterna magna: normal 4-chamber view: normal RVOT view: normal LVOT view: normal 3-vessel view: normal Heart / Thorax Situs: situs solitus (normal) Diaphragm: normal Stomach: normal Kidneys: normal Bladder: normal Genitals: abnormal Abdomen Genitals: hypospadia sex: male Wants to know sex: yes Performed By: Nicole Chiang RDMS, RVT Read By: Concepcion Ricci M.D.MATERNAL [id number] Progress note* Quick Notes - Niru Harrington MD - 08/27/2024 9:29 AM EDT S: Alon Schmitt is a 23 year old female who presents at 11/08/2024, by Last Menstrual Period for a routine visit. Denies headache, visual changes, chest pain, shortness of breath, vaginal bleeding,leakage of fluid, or dysuria. Feeling well, no complaints. Good movement, No contractions O: See flow sheet Gen: No apparent distress Abd: Gravid, nontender EFW 56 % FAITH 15 CF peds sheets given. ASSESSMENT/PLAN: 1. Obesity during in third trimester ([facility]) - ICD9: 649.13, ICD10: O99.213 (primary diagnosis) NSTS weekly at 32 Growth q 4 - URINE OB DIP B/O 2. Single umbilical artery affecting management of mother, antepartum, single gestation ([facility]) - ICD9: V23.89, ICD10: O09.899 Growth q 4 - URINE OB DIP B/O - OBSTETRIC ULTRASOUND WHI 3. Screening for diabetes mellitus - ICD9: V77.1, ICD10: Z13.1 - URINE OB DIP B/O 4. Supervision of high risk in third trimester ([facility]) - ICD9: V23.9, ICD10: O09.93 - URINE OB DIP B/O 5. 29 weeks gestation of ([facility]) - ICD9: V22.2, ICD10: Z3A.29 - URINE OB DIP B/O Niru Harrington MD [facility]05-02-2025 Miscellaneous Notes* Quick Notes - Niru Harrington MD - 08/27/2024 9:29 AM EDT S: Alon Schmitt is a 23 year old female who presents at 11/08/2024, by Last Menstrual Period for a routine visit. Denies headache, visual changes, chest pain, shortness of breath, vaginal bleeding,leakage of fluid, or dysuria. Feeling well, no complaints. Good movement, No contractions O: See flow sheet Gen: No apparent distress Abd: Gravid, nontender EFW 56 % FAITH 15 CF peds sheets given. ASSESSMENT/PLAN: 1. Obesity during in third trimester ([facility]) - ICD9: 649.13, ICD10: O99.213 (primary diagnosis) NSTS weekly at 32 Growth q 4 - URINE OB DIP B/O 2. Single umbilical artery affecting management of mother, antepartum, single gestation ([facility]) - ICD9: V23.89, ICD10: O09.899 Growth q 4 - URINE OB DIP B/O - OBSTETRIC ULTRASOUND WHI 3. Screening for diabetes mellitus - ICD9: V77.1, ICD10: Z13.1 - URINE OB DIP B/O 4. Supervision of high risk in third trimester ([facility]) - ICD9: V23.9, ICD10: O09.93 - URINE OB DIP B/O 5. 29 weeks gestation of ([facility]) - ICD9: V22.2, ICD10: Z3A.29 - URINE OB DIP B/O Niru Harrington MD documented in [facility] encounterL[facility] Instructions* Patient Instructions* Sandra Robledo MA - 08/27/2024 9:19 AM EDT SEQUENTIAL SCREENINGS The [facility] offers sequential screenings for women who are interested in screenings for chromosomal abnormalities and certain defects during a . The sequential screen combinesultrasound and blood tests to determine the risk of chromosomal abnormalities, including Down's Syndrome (Trisomy 21) and Trisomy 18, as well as open neural tube defects including spina bifida. Ultrasound examination is performed between 11 weeks and 13 weeks gestational age. Blood tests are drawn after the ultrasound and again later in the between 15 and 21 weeks gestational age. Please let your physician know if you are interested in this testing. It will require an appointment withour air and hydronic balancing technician. This is not an ultrasound performed by a physician in our office during a routine visit. SIGNS AND SYMPTOMS OF LABOR 1. Contractions every 10 minutes or more often 2. Clear, pink, or brownish fluid (water) leaking from vagina 3. Feeling that baby is pushing down, pressure 4. Low, dull backache 5. Cramps that feel like a period 6. Cramps with or without diarrhea If you notice any of the above symptoms, contact our office at [phone] and ask to speak with anurse. After hours, you can call doctors registry at [phone] OR call [facility] at [phone] ask to have the doctor customer care consultant paged. If you consider this an emergency, dial 9-0-2 or go to your nearest emergency department. NEED HELP? Are you dealing with a violent or abusive relationship? Are you a victim of rape or sexual assult? Call [facility] ([place]) 24 hour Crisis Hotline: 631.226.6203 or 417-195-0295. MANUAL Your Guide to a Healthy manual is now on-line. Visit [email or web address] to download your free copy documented in this encounterL[facility] Telephone encounter Note * Telephone Encounter - Belen Crenshaw RN - 08/26/2024 4:45 PM EDT Pt scheduled 08/27/24 for Growth US at 8:30am and OB appt at 9am. Please file order and will link to appt. Belen Crenshaw RN [facility]05-01-2025 Miscellaneous Notes* Telephone Encounter - Belen Crenshaw RN - 08/26/2024 4:45 PM EDT Pt scheduled 08/27/24 for Growth US at 8:30am and OB appt at 9am. Please file order and will link to appt. Belen Crenshaw RN documented in this encounterL[facility] Telephone encounter Note * Telephone Encounter - Fabienne Del Cid LGC - 08/17/2024 11:37 AM EDT Called Mrs. Schmitt to discuss the results of her standard 14 condition carrier screening. Disclosedthat Mrs. Schmitt was not identified as a carrier of any of the conditions on this panel, therefore there is a much less than !% chance for any of the conditions on this panel in her current or futurepregnancies. At this time, her 's carrier screening remains pending. The results will be retu rned when available. Mrs. Schmitt indicated understanding and appreciated the information. Carrier screening report was released following our conversation. Encouraged Mrs. Schmitt to reach me via [employer] or at my direct office line ([phone]) if she has any questions or concerns in the future. Fabienne Del Cid MS, [facility] [place], Certified Genetic Counselor [facility] Work Phone: 1(922) 349-275304-22-2025 Miscellaneous Notes* Telephone Encounter - Fabienne Del Cid LGC - 08/17/2024 11:37 AM EDT Called Mrs. Schmitt to discuss the results of her standard 14 condition carrier screening. Disclosedthat Mrs. Schmitt was not identified as a carrier of any of the conditions on this panel, therefore there is a much less than !% chance for any of the conditions on this panel in her current or futurepregnancies. At this time, her 's carrier screening remains pending. The results will be retu rned when available. Mrs. Schmitt indicated understanding and appreciated the information. Carrier screening report was released following our conversation. Encouraged Mrs. Schmitt to reach me via [employer] or at my direct office line ([phone]) if she has any questions or concerns in the future. Fabienne Del Cid MS, [facility] [place] Licensed, Certified Genetic Counselor documented in this encounterLake [facility] Instructions* Patient Instructions* Rachel Whatley MD - 08/17/2024 9:15 AM EDT Hypospadias - We discussed natural history of hypospadias, the indications for repair (ability to void standingup into toilet/urinal, and normal semen ejaculation/fertility), and recommendations for hypospadiasrepair - We reviewed the range of hypospadias presentations but that this cannot be fully assessed and recommendations provided until baby is born - Given low-risk male NIPT and anatomy scan indicating patient has a penis, low concern for difference of sexual development - Advised patient and partner that may continue to pursue delivery at [place] with their planin coordination with their OB - Recommend follow-up within 1 month after for assessment in clinic and further surgical counseling. - We briefly reviewed timing of surgery, possible need for staged surgeries, and occasional need for testosterone injections - I advised patient that my colleague, Dr. Diandra Crenshaw, sees patients in [place] which may be more convenient for them. Recommended resources: -[email or web address] - [email or web address] Pediatric Urology Scheduling: Office/Clinical concerns: Rachel Whatley MD, MSc [employer]gl[employer] Investigator Pediatric Urology documented in this encounterLake [facility] History of Present illness Narrative* Rachel Whatley MD - 08/17/2024 8:00 AM EDT Virtual New Patient Visit - Pediatric Urology Alon Schmitt 2000 [id number] CC: consultation Patient is accompanied today by on telephone This is a virtual visit using [employer] Video Visit. It required patient- provider interaction for the medical decision making as documented below. HPI: Consultation requested by Dr. Luz Elena Laguna for an opinion regarding possible hypospadias and single umbilical artery. My final recommendations will be communicated back to the requesting health care provider by way of shared Medical record or letter to requesting health care provider via US mail. Alon Schmitt is a 23 year old female, currently 28 weeks and 1 day , referred by Dr. Luz Elena Laguna for hypospadias. - Declined amniocentesis, but she and are awaiting results of standard genetic carrier testing. They plan to collect cord blood after delivery for genetic testing. Diagnostic Results: - OB Ultrasound (July 27): - Genitalia: Shortened penile shaft with a blunt tip, concerning for possible hypospadias. - NIPT: Low-risk male. - Kidneys and bladder: Normal. - Amniotic fluid levels: Normal. Plans to deliver at [place]. Allergies: ALLERGIES No Known Allergies Medications: Current Outpatient Medications Medication Sig Dispense Refill doxylamine succinate (UNISOM, DOXYLAMINE, ORAL) Take by mouth. (Patient not taking: Reported on 07/27/2024) pyridoxine HCl, vitamin B6, (VITAMIN B-6 ORAL) Take by mouth. (Patient not taking: Reported on 07/27/2024) ondansetron (ZOFRAN) 4 mg tablet Take 1 tablet by mouth every 8 hours as needed for nausea/vomiting. (Patient not taking: Reported on 07/27/2024) 60 tablet 1 aspirin 81 mg cap Take by mouth. VIT 2-TZQO-CUYIX-DHA ORAL Take by mouth. No current facility-administered medications for this visit. Past Medical History: PAST MEDICAL HISTORY Diagnosis Date anxiety/depression History of miscarriage Past Surgical History: PAST SURGICAL HISTORY Procedure Laterality Date CHOLECYSTECTOMY HX D&C, DIAG AND/OR THERAPEUTIC Miscarriage TOOTH EXTRACTION Social History: Patient lives with Family History: There is no history of anomalies ROS: General: NEGATIVE for unexplained fevers, weight loss, pain (scale of 1-10) Head & Neck: NEGATIVE for vision problems, recurrent ear infections, frequent nose bleeds, snoring, strep throat in the past 6 months. Cardiovascular: NEGATIVE for heart murmur, history of heart defect, high blood pressure. Respiratory: NEGATIVE for asthma, wheezing, shortness of breath, frequent respiratory infections, seasonal allergies, pneumonia. Gastrointestinal: NEGATIVE for frequent vomiting, acid reflux, abdominal pain, blood in stool, foodallergies, bowel accidents, diarrhea, constipation. Musculoskeletal: NEGATIVE for spine problems, back pain, difficulty walking, leg weakness, numbnessor tingling in the legs, joint pain or swelling. Genitourinary: Per HPI Blood/Lymphatic: NEGATIVE for swollen glands, previous blood transfusions, easing bruising, prolonged bleeding, sickle-cell disease. Endo: NEGATIVE for diabetes, thyroid disorders Neurological: NEGATIVE for seizures, learning disability, developmental delay, attention deficit hyperactivity disorder, paralysis. Virtual Physical Exam: I virtually examined the patient with a guardian/brick kiln burner present. Constitutional: Well-developed, well-nourished child in no acute distress ENMT: Head atraumatic and normocephalic, mucous membranes moist without erythema Respiratory: Normal respiratory effort, no coughing or audible wheezing. Cardiovascular: No peripheral edema, clubbing or cyanosis Musculoskeletal: Moves upper extremities Skin: Exposed skin intact without rashes or lesions Psych: Alert, appropriate mood and affect Labs: No pertinent labs Imaging: I reviewed the patient's pertinent imaging and reports - OB US as per HPI Impression/Plan: Hypospadias - We discussed natural history of hypospadias, the indications for repair (ability to void standingup into toilet/urinal, and normal semen ejaculation/fertility), and recommendations for hypospadiasrepair - We reviewed the range of hypospadias presentations but that this cannot be fully assessed and recommendations provided until baby is born - Given low-risk male NIPT and anatomy scan indicating patient has a penis, low concern for difference of sexual development - Advised patient and partner that may continue to pursue delivery at [place] with their planin coordination with their OB - Recommend follow-up within 1 month after for assessment in clinic and further surgical counseling. - We briefly reviewed timing of surgery, possible need for staged surgeries, and occasional need for testosterone injections - I advised patient that my colleague, Dr. Diandra Crenshaw, sees patients in [place] which may be more convenient for them. Recommended resources: -[email or web address] - [email or web address] Pediatric Urology Scheduling: Office/Clinical concerns: Rachel Whatley MD, MSc Burglary Investigator Pediatric Urology Recording using [employer] software for draft documentation of the visit was discussed with the patient/authorized novelties sales representative; all questions welcomed and answered. Patient/authorized novelties sales representative agreed to proceed documented in [facility] NoteHNO ID: [id number] Author: RACHEL WHATLEY MD Service: ? Author Type: Physician Type: Progress Notes Filed: 08/17/2024 09:23 Note Text: Virtual New Patient Visit - Pediatric Urology Alon Schmitt 2000 [id number] CC: consultation Patient is accompanied today by on telephone This is a virtual visit using [email or web address] Zoom Video Visit. It required patient-provider interaction for the medical decision making as documented below. HPI: Consultation requested by Dr. Luz Elena Laguna for an opinion regarding possible hypospadias and single umbilical artery. My final recommendations will be communicated back to the requesting health care provider by way of shared Medical record or letter to requesting health care provider via US mail. Alon Schmitt is a 23 year old female, currently 28 weeks and 1 day , referred by Dr. Luz Elena Laguna for hypospadias. - Declined amniocentesis, but she and are awaiting results of standard genetic carrier testing. They plan to collect cord blood after delivery for genetic testing. Diagnostic Results: - OB Ultrasound (July 27): - Genitalia: Shortened penile shaft with a blunt tip, concerning for possible hypospadias. - NIPT: Low-risk male. - Kidneys and bladder: Normal. - Amniotic fluid levels: Normal. Plans to deliver at [place]. Allergies: ALLERGIES No Known Allergies Medications: Current Outpatient Medications Medication Sig Dispense Refill doxylamine succinate (UNISOM, DOXYLAMINE, ORAL) Take by mouth. (Patient not taking: Reported on 07/27/2024) pyridoxine HCl, vitamin B6, (VITAMIN B-6 ORAL) Take by mouth. (Patient not taking: Reported on 07/27/2024) ondansetron (ZOFRAN) 4 mg tablet Take 1 tablet by mouth every 8 hours as needed for nausea/vomiting. (Patient not taking: Reported on 07/27/2024) 60 tablet 1 aspirin 81 mg cap Take by mouth. VIT 8-BSVN-IMDQE-DHA ORAL Take by mouth. No current facility-administered medications for this visit. Past Medical History: PAST MEDICAL HISTORY Diagnosis Date anxiety/depression History of miscarriage Past Surgical History: PAST SURGICAL HISTORY Procedure Laterality Date CHOLECYSTECTOMY HX DANDC, DIAG AND/OR THERAPEUTIC Miscarriage TOOTH EXTRACTION Social History: Patient lives with Family History: There is no history of anomalies ROS: General: NEGATIVE for unexplained fevers, weight loss, pain (scale of 1-10) Head AND Neck: NEGATIVE for vision problems, recurrent ear infections, frequent nose bleeds, snoring, strep throat in the past 6 months. Cardiovascular: NEGATIVE for heart murmur, history of heart defect, high blood pressure. Respiratory: NEGATIVE for asthma, wheezing, shortness of breath, frequent respiratory infections, seasonal allergies, pneumonia. Gastrointestinal: NEGATIVE for frequent vomiting, acid reflux, abdominal pain, blood in stool, food allergies, bowel accidents, diarrhea, constipation. Musculoskeletal: NEGATIVE for spine problems, back pain, difficulty walking, leg weakness, numbness or tingling in the legs, joint pain or swelling. Genitourinary: Per HPI Blood/Lymphatic: NEGATIVE for swollen glands, previous blood transfusions, easing bruising, prolonged bleeding, sickle-cell disease. Endo: NEGATIVE for diabetes, thyroid disorders Neurological: NEGATIVE for seizures, learning disability, developmental delay, attention deficit hyperactivity disorder, paralysis. Virtual Physical Exam: I virtually examined the patient with a guardian/brick kiln burner present. Constitutional: Well-developed, well-nourished child in no acute distress ENMT: Head atraumatic and normocephalic, mucous membranes moist without erythema Respiratory: Normal respiratory effort, no coughing or audible wheezing. Cardiovascular: No peripheral edema, clubbing or cyanosis Musculoskeletal: Moves upper extremities Skin: Exposed skin intact without rashes or lesions Psych: Alert, appropriate mood and affect Labs: No pertinent labs Imaging: I reviewed the patient's pertinent imaging and reports - OB US as per HPI Impression/Plan: Hypospadias - We discussed natural history of hypospadias, the indications for repair (ability to void standing up into toilet/urinal, and normal semen ejaculation/fertility), and recommendations for hypospadias repair - We reviewed the range of hypospadias presentations but that this cannot be fully assessed and recommendations provided until baby is born - Given low-risk male NIPT and anatomy scan indicating patient has a penis, low concern for difference of sexual development - Advised patient and partner that may continue to pursue delivery at [place] with their plan in coordination with their OB - Recommend follow-up within 1 month after for assessment in clinic and further surgical counseling. - We briefly reviewed timing of surgery, possible need for staged surgeries, and occasi (more content not included)...[facility]04-20-2025 Note HNO ID: [id number] Author: REBA MOREIRA DO Service: Obstetrics Author Type: Resident Type: Plan of Care Filed: 08/15/2024 20:27 Note Text: Urine dip negative, pain resolved. Patient reassured and comfortable for discharge with labor and pain return precautions. Prior to discharge, the following Plan of care discussed with: Provider, RN, Patient, Dr. Courtney Discharge Vital signs: .BP 124/75 Pulse 105 Temp 36.8 ?C (98.2 ?F) (Temporal) Resp 18 Ht 162.6 cm (5' 4) Wt 124.7 kg (275 lb) LMP 02/02/2024 (Exact Date) SpO2 98% BMI 47.20 kg/m? Lab Results: UA DIP LABSTIX, URINE (POC) Order: [id number] Status: Final result Test Result Released: No (scheduled for 08/16/2024 2:19 AM) 0 Result Notes Component Ref Range AND Units 8:15 PM GLUCOSE UA (POCT) Negative mg/dL Negative KETONE UA (POCT) Negative mg/dL Negative HEMOGLOBIN/BLOOD UA (POCT) Negative Small Abnormal PH UA (POCT) 4.5 - 8.0 6.5 PROTEIN UA (POCT) Negative mg/dL Negative NITRITE UA (POCT) Negative Negative LEUKOCYTES UA (POCT) Negative Negative CLARITY UA (POCT) Clear COLOR UA (POCT) Yellow Resulting Agency [facility] Follow-up: Appointments for Next 60 Days Date Time Provider Location Dept Phone 08/17/2024 8:00 AM RACHEL WHATLEY [facility] [phone] 08/27/2024 8:30 AM [facility] TECH 1 P[employer]LTRY BARN MANAGER [facility] [place] [phone] 08/27/2024 8:30 AM POULTRY BARN MANAGER [facility] [place] [phone] 08/27/2024 9:00 AM NIRU HARRINGTON [place] [phone] Precautions: Pain precautions, labor precautions New or adjusted home medications: Tylenol every 6 hours as needed for pain Other recommendations/instructions: Belly band Reba Moreira, [facility]04-20-2025 NoteHNO ID: [id number] Author: DONNA COURTNEY MD Service: Nursing Author Type: Physician Type: Procedures Filed: 08/15/2024 21:31 Note Text: OBSTETRICS NST SUMMARY SERVICE DATE: August 15, 2024 The patient is a 23 year old female, , who is at 27w6d with an LUIS of 11/08/2024, by Last Menstrual Period dating method. NST OBJECTIVE FINDINGS PER NURSE: Start Time: 1927 (08/15/241927 : Concetta Anglin, RN) Complete Time: 1947 (08/15/241957 : Concetta Anglin, RN) Indications: Other: Comment (triage) (08/15/241927 : Concetta Anglin, RN) Patient Reason For: to check baby (08/15/241927 : Concetta Anglin, RN) NST Explanation: Procedure Explained, Monitor Explained, Verbalizes Understanding (08/15/241927 : Concetta Anglin, RN) Acoustic Stimulator: No (08/15/241957 : Concetta Anglin, RN) Interventions: (None) (08/15/241957 : Concetta Anglin, RN) MONITORING/ASSESSMENT: Baseline: 140 bpm (08/15/241957 : Concetta Anglin, RN) Variability: Moderate (6-25 bpm) (08/15/241957 : Concetta Anglin RN) Accelerations: Present (08/15/241957 : Concetta Anglin RN) Decelerations: Decelerations: None (08/15/241957 : Concetta Anglin RN) Contractions: Not present (08/15/241957 : Concetta Anglin RN) Frequency: Above information forwarded to Dr. Courtney (08/15/241957 : Concetta Anglin RN) for final review and interpretation. SIGNATURE: Concetta Anglin RN PATIENT NAME: Alon Schmitt DATE: August 15, 2024 TIME: 8:05 PM PROVIDER INTERPRETATION: Reactive SIGNATURE: Donna Courtney MD DATE: August 15, 2024 TIME: 9:30 [facility]04-20-2025 NoteHNO ID: [id number] Author: DONNA COURTNEY MD Service: Obstetrics Author Type: Resident Type: Progress Notes Filed: 08/15/2024 21:40 Note Text: Attestation signed by Donna Courtney MD at 08/15/2024 9:40 PM Attending Note I evaluated the patient and personally participated in the lewis components. I agree with the resident's findings and plan with the following revisions and/or additions: Patient started after having BM. Intermittent. Worse with movements such as lying down. Better when able to stretch out. 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 Pain resolved after arriving here. Discussed likely round ligament pain. Discuss wearing belly band. Return if pain constant worsening or associated with symptoms above. Signature: Donna Courtney MD Date: 08/15/2024 Time: 9:33 PM OBSTETRICS OB ED PROGRESS NOTE SERVICE DATE: August 15, 2024 SERVICE TIME: 7:32 PM Subjective Patient's stated reason for arrival: painn on right side CHIEF COMPLAINT: abdominal pain HISTORY OF THE PRESENT ILLNESS: The patient is a 23 year old female, , who is at 27w6d with an LUIS of 11/08/2024, by Last Menstrual Period dating method. Patient is here complaining of right sided abdominal pain. It started 40 minutes ago. It comes and goes with movement including walking or sitting up, it is an 8/10 at worst. It gets better when lying down. Abdominal pain is similar to her miscarriage in G1, has no history of this pain this . The pain is pulling through the right side of her abdomen starting under her ribs and goes into the groin to the right side of her vagina. The pain does not encompass her whole uterus and does not feel like a tightening and relaxing of her lower abdomen. It is occasionally sharp in nature. She states she has had round ligament pain in her vagina in this and this feels different. No vaginal bleeding, loss of fluid, no abnormal vaginal discharge. Normal movement. Denies dysuria, hematuria, No fever, chills, diarrhea, vomiting, constipation. PAST MEDICAL HISTORY Diagnosis Date anxiety/depression History of miscarriage PAST SURGICAL HISTORY Procedure Laterality Date CHOLECYSTECTOMY HX DANDC, DIAG AND/OR THERAPEUTIC Miscarriage TOOTH EXTRACTION FAMILY HISTORY Problem Relation Age of Onset Diabetes Mother Diabetes Father No Known Problems Brother No Known Problems Brother other (lung -benign growths removed) Maternal Grandmother other (tobacco use) Maternal Grandmother Heart Maternal Grandfather Diabetes Paternal Grandmother other (acid reflux) Paternal Grandmother Suicide / Suicidal Behaviors Paternal Grandfather by suicide OB History Gravida2 Para0 Term0 Preterm0 AB1 Living0 SAB1 IAB0 Ectopic0 Multiple0 Live Births0 Comment: Pt states she had a chemical REVIEW OF SYSTEMS: The remainder of the review of systems is negative. Objective LAST VITALS: Pulse: 105 BP: 124/75 Resp: 18 Temp: 36.8 ?C (98.2 ?F) SpO2: 98 % Height: 162.6 cm (5' 4) Weight: 124.7 kg (275 lb) BMI: 47.2 SENSITIVE EXAMINATION CONSENT: Participation of a fellow, resident, medical student, or advanced practice provider student in performing the sensitive examination was discussed with the patient or authorized novelties sales representative. The patient or authorized novelties sales representative has agreed to proceed with the sensitive examination. PHYSICAL EXAM: General: WD, WN, comfortable when at rest, pain with movement to lie down or move on bed Heart: RR, S1, S2, no [place], rub, or murmur appreciated Lungs: clear to auscultation Abdomen: soft, mild tenderness to palpation of lateral right abdomen peripheral to the uterus Uterus: Soft with abdominal pain, nontender Normal external genitalia, Normal urethral meatus CERVICAL EXAM: Dilation: Closed (08/15/242004 : Reba Moreira DO) Station: Ballotable (08/15/242004 : Reba Moreira DO) Effacement (%): 20 (08/15/242004 : Reba Moreira DO) MONITORING/ASSESSMENT: Baseline: 140 / Moderate variability No contractions on tocometer Appropriate for gestational age LABS Diagnostic tests reviewed for today's visit: Most recent labs and imaging results. 23 year old EGA:27w6d with 1hr right-sided abdominal pain Assessment AND Plan Abdominal pain affecting (HCC) - Vital signs stable - Patient with one hour of right-sided abdominal pain that stretches from her upper right abdomen down to her right groin - Worsened with lying flat, movement, goes away at rest - Consistent with musculoskeletal pain e.g. round ligament pain versus muscle spasm - Give tylenol 1000mg in OB/ED and monitor for improvement - Get urine dip to evaluate for UTI ve (more content not included)...[facility]04-15-2025 NoteHNO ID: [id number] Author: LUZ ELENA LAGUNA MD Service: ? Author Type: Physician Type: Progress Notes Filed: 08/22/2024 09:48 Note Text: [facility] OUTPATIENT VISIT August 10, 2024 Medicine Consult REFERRING PROVIDER: Wiswell Darryl, MD Recommendations from today's consultation will be conveyed through the electronic medical record. History of Present Illness: 23 year old at 27w1d with Estimated Date of Delivery: 11/08/24 presenting for consultation with Maternal- Medicine at the [facility] in the setting of atypical genitalia and SUA. Upon review of the patient's medical, surgical, and family histories, all aspects are unremarkable except for those mentioned in the remainder of this note. ultrasound was performed today and here are the pertinent findings: - The placenta is anterior, fundal. - No malformations visualized on a limited survey as detailed below. The penis appears ventrally bent with two parallel hyperechoic lines adjacent to the shaft, consistent with lateral preputial folds. These findings are suggestive of second-degree hypospadias. The penis is subjectively small, likely due to its ventral positioning. The scrotum appears normal, with both testes visualized within the scrotal sac. The kidneys are normal in size and echogenicity, with no evidence of hydronephrosis. The bladder is normal in appearance and appropriately filled. Obstetric History: # 1 - Date: 11/20/23, Sex: None, Weight: None, GA: 7w0d, Type: MISSED AB, Apgar1: None, Apgar5: None, Living: None, Comments: DANKENDRA # 2 - Date: None, Sex: None, Weight: None, GA: None, Type: None, Apgar1: None, Apgar5: None, Living: None, Comments: None Gynecologic History: Non-contributory Past Medical History: PAST MEDICAL HISTORY Diagnosis Date anxiety/depression History of miscarriage Past Surgical History: PAST SURGICAL HISTORY Procedure Laterality Date CHOLECYSTECTOMY HX DANDC, DIAG AND/OR THERAPEUTIC Miscarriage TOOTH EXTRACTION Medications: Current Outpatient Medications on File Prior to Visit Medication Sig doxylamine succinate (UNISOM, DOXYLAMINE, ORAL) Take by mouth. (Patient not taking: Reported on 07/27/2024) pyridoxine HCl, vitamin B6, (VITAMIN B-6 ORAL) Take by mouth. (Patient not taking: Reported on 07/27/2024) ondansetron (ZOFRAN) 4 mg tablet Take 1 tablet by mouth every 8 hours as needed for nausea/vomiting. (Patient not taking: Reported on 07/27/2024) aspirin 81 mg cap Take by mouth. VIT 2-OHZZ-FHVHV-DHA ORAL Take by mouth. No current facility-administered medications on file prior to visit. Allergies: ALLERGIES No Known Allergies Social History: Social History Tobacco Use Smoking status: Never Smokeless tobacco: Never Vaping Use Vaping status: Never Used Substance Use Topics Alcohol use: Never Drug use: Never Family History: FAMILY HISTORY Problem Relation Age of Onset Diabetes Mother Diabetes Father No Known Problems Brother No Known Problems Brother other (lung -benign growths removed) Maternal Grandmother other (tobacco use) Maternal Grandmother Heart Maternal Grandfather Diabetes Paternal Grandmother other (acid reflux) Paternal Grandmother Suicide / Suicidal Behaviors Paternal Grandfather by suicide Review of Systems: Negative other than as noted above. Physical Exam: Height Weight BMI Pulse BP Resp O2 Sat Temp Pain Gen: Well-appearing, no acute distress CV/Resp: Non-labored breathing on room air Abd: Gravid, non-tender Ext: Moving spontaneously, no significant edema b/l Assessment and Plan: 23 year old at 27w1d with Estimated Date of Delivery: 11/08/24 presenting for consultation with Maternal- Medicine at the [facility] in the setting of atypical genitalia and SUA. Discussion: Today's detailed ultrasound revealed hypospadias characterized by ventral penile curvature with two parallel hyperechoic lines adjacent to the shaft, indicative of lateral preputial folds. These findings suggest second-degree hypospadias. The penis appears subjectively small, likely due to its ventral positioning. The scrotum appears normal, with both testes visualized within the scrotal sac. Additionally, a single umbilical artery was identified, likely isolated. Limited anatomical survey today showed no additional malformations expect for SUA. The kidneys are normal in size and echogenicity without evidence of hydronephrosis. The bladder is normal in appearance and appropriately filled. Evaluation of the anal region was limited; hence, no definitive comment could be made regarding its appearance. Non-invasive testing (NIPT) results were low risk, and the patient declined amniocentesis. We reviewed that Hypospadias occurs in approximately 1 in 200-300 male births, typically presenting wit (more content not included)...[facility]04-10-2025 Telephone encounter Note* Telephone Encounter - Belen Crenshaw RN - 08/05/2024 4:13 PM EDT Distance Health: Appt with RACHEL Amin on 08/03/24 added to record. Belen Crenshaw RN [facility]04-10-2025 Miscellaneous Notes* Telephone Encounter - Belen Crenshaw RN - 08/05/2024 4:13 PM EDT Distance Health: Appt with FabienneRACHEL Matos on 08/03/24 added to record. Belen Crenshaw RN documented in [facility] Progress note* Quick Notes - Rachel Mosqueda APRN.CNM - 08/03/2024 2:29 PM EDT EDELMIRA-S: Alon Schmitt is a 23 year old female who presents at 26w1d with LUIS:11/08/2024, by Last Menstrual Period for a problem visit for blood pressure check. Denies headache, visual changes, chest pain, shortness of breath, vaginal bleeding, leakage of fluid, or dysuria. Feeling well, no complaints. BP check today O: See flow sheet Gen: No apparent distress Abd: Gravid, nontender Ext: +2/4 bilateral patellar, no clonus ASSESSMENT/PLAN: 1. Supervision of high risk in second trimester -Return for 28 week visit 2. Obesity affecting in second trimester, unspecified obesity type -Pregravid BMI 47 -Growth US every 4 weeks starting at 32 weeks -NST weekly starting at 32 weeks -IOL at 39 weeks 3. Single umbilical artery affecting management of mother, antepartum, single gestation -Growth US every 4 weeks 4. Screening for diabetes mellitus -1hr GCT today 5. 26 weeks gestation of 6. Elevated blood pressure reading without diagnosis of hypertension -Presented today for follow up blood pressure. Labs completed on 07/27 but urine P/C ratio not done. This is completed today and will await results. Discussed preeclampsia symptoms and when to call. PTL precautions reviewed and when to call RTO in 1 weeks Rachel Mosqueda APRN.CNM [facility]04-08-2025 Miscellaneous Notes* Quick Notes - Rachel Mosqueda APRN.CNM - 08/03/2024 2:29 PM EDT EDELMIRA-S: Alon Schmitt is a 23 year old female who presents at 26w1d with LUIS:11/08/2024, by Last Menstrual Period for a problem visit for blood pressure check. Denies headache, visual changes, chest pain, shortness of breath, vaginal bleeding, leakage of fluid, or dysuria. Feeling well, no complaints. BP check today O: See flow sheet Gen: No apparent distress Abd: Gravid, nontender Ext: +2/4 bilateral patellar, no clonus ASSESSMENT/PLAN: 1. Supervision of high risk in second trimester -Return for 28 week visit 2. Obesity affecting in second trimester, unspecified obesity type -Pregravid BMI 47 -Growth US every 4 weeks starting at 32 weeks -NST weekly starting at 32 weeks -IOL at 39 weeks 3. Single umbilical artery affecting management of mother, antepartum, single gestation -Growth US every 4 weeks 4. Screening for diabetes mellitus -1hr GCT today 5. 26 weeks gestation of 6. Elevated blood pressure reading without diagnosis of hypertension -Presented today for follow up blood pressure. Labs completed on 07/27 but urine P/C ratio not done. This is completed today and will await results. Discussed preeclampsia symptoms and when to call. PTL precautions reviewed and when to call RTO in 1 weeks Rachel Mosqueda APRN.CNM documented in this encounterL[facility] Instructions* Patient Instructions* Rachel Mosqueda APRN.CNM - 08/03/2024 1:42 PM EDT We would like your blood pressure to be below 140/90. Please check your blood pressure twice daily and send a log weekly. If increasing to 140/90 please notify the office that day or next day. If you have a severe, persistent headache, visual changes or severe right sided abdominal pain or any other changes please notify the office or go to labor and delivery for evaluation. If your blood pressure is above 160/100 twice within 30 minutes please notify us immediately or go to labor and delivery for evaluation. SIGNS AND SYMPTOMS OF LABOR 1. Contractions every 10 minutes or more often 2. Clear, pink, or brownish fluid (water) leaking from vagina 3. Feeling that baby is pushing down, pressure 4. Low, dull backache 5. Cramps that feel like a period 6. Cramps with or without diarrhea If you notice any of the above symptoms, contact our office at [phone] and ask to speak with anurse. After hours, you can call doctors registry at [phone] OR call [facility] at [phone] ask to have the doctor customer care consultant paged. If you consider this an emergency, dial 9--9 or go to your nearest emergency department. NEED HELP? Are you dealing with a violent or abusive relationship? Are you a victim of rape or sexual assult? Call [facility] ([place]) 24 hour Crisis Hotline: 447.148.2647 or 941-814-0622. MANUAL Your Guide to a Healthy manual is now on-line. Visit [email or web address] to download your free copy documented in this encounterLake [facility] History of Present illness Narrative* Fabienne Del Cid LGC - 08/03/2024 9:00 AM EDT REPRODUCTIVE GENETIC COUNSELING INITIAL VISIT Alon Schmitt : 2000 Above identifiers confirmed by Fabienne Del Cid MS, [facility] Consultation requested by: Dr. Concepcion Ricci Date of clinic visit: August 03, 2024 Costume Shop Coordinator offered/present: No - Burundian per EMR Alon Schmitt is a 23 year old female referred by Dr. 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 She was accompanied to the visit today by her mother. Ms. Schmitt is seen via a virtual Distance Health visit today via [employer] platform per patient choice. The visit is conducted synchronously in real-time. The patient and her mother are in attendance. I have communicated my name and active licensure. The patient's identity and physical location wereverified at the time of this visit. Either the patient or their legal novelties sales representative has been informed of the risks and benefits of -- and alternatives to -- treatment through a remote evaluation andconsents to proceed with the evaluation remotely. PRESENTING PROBLEM: Mrs. Alon Schmitt is a 23 year old female is currently 26w1d gestation. On her early anatomy, there was suspicion for single umbilical artery, which was confirmed on the anatomy ultrasound performed on 07/27/2024. This most recent ultrasound also showed shortened penile length with blunt tip, concerning for possible hypospadias. Of note, Mrs. Schmitt has had a risk reducing negative NIPT result. Mrs. Schmitt presents for a discussion of the ultrasound findings and additional management options. REPRODUCTIVE HISTORY: Currently : Yes / 26w1d (by LMP) LMP: 02/01/2025 LUIS: 11/08/2024 Plans to deliver at [place], but is open to delivery at [facility] as needed history: 1. 10/2023, 7w0d SAB 2. 11/2023, [facility] 2. Current Infertility as a couple: No. Infertility with other partners: No. Patient's infertility work-up: Not applicable Partner's infertility work-up: Not applicable Infertility therapies: Not applicable Parental Screens: No prior carrier screening completed Chromosomal analysis: Patient: No Partner: No Products of conception: No exposures: - vitamins or other folate supplementation: Yes - Prescription medicines: Yes, low dose daily aspirin and zofran - OTC medicines, herbal medicines, other supplements: No - Tobacco, alcohol, or illicit drugs: No - Maternal infections or fevers: No - Other known/suspected human teratogens: No Aneuploidy screening: yes (Date: 04/29/24, Gestational Age: 12w3d, Result: negative). - NIPT ([id number]): - Screen negative for Trisomy 21, Trisomy 18, Trisomy 13, and sex chromosome aneuploidies - Reported sex: male Ultrasounds: - Dating scan 03/22/2024 at 7w0d gestation by LMP (performed by Deb Richard CNM): 7w1d by scan. - 1st trimester anatomy performed 04/22/[address] Concepcion Ricci; NT and other anatomic structure reported as unremarkable - Early anatomy performed 06/24/[address] Willa Smith showed suspected single umbilical artery; normal amniotic fluid volume. - anatomy performed 07/27/[address] Concepcion Ricci showed shortened penile length with blunt tip concerning for possible hypospadias; single umbilical artery; normal amniotic fluid volume. - Next growth scan scheduled for 08/10/2024 at [facility] CVS: No Amniocentesis: No complications: - Maternal diabetes, hypertension, seizures, other illness: No - Vaginal bleeding, labor, other complications: Yes, light spotting around 6 weeks - Decreased movement: No, movement is increasing SIGNIFICANT PAST MEDICAL/SURGICAL HISTORIES: Alon: PAST MEDICAL HISTORY Diagnosis Date anxiety/depression History of miscarriage PAST SURGICAL HISTORY Procedure Laterality Date CHOLECYSTECTOMY HX D&C, DIAG AND/OR THERAPEUTIC Miscarriage TOOTH EXTRACTION Trav Keshia: (age 25 ) Exercise induced asthma FAMILY HISTORY: A 3-generation pedigree was obtained for the patient and her partner and will be scanned into patient's EMR. Of note: - Genetic and/or Inherited Disease: No - Common Disorders: Yes / Mrs. Schmitt's father has a history of type II diabetes. Both of her paternal grandparents also had type II diabetes. - Defects: Yes / Mr. Schmitt's paternal uncle had an unspecified congenital heart defect. - Seizures: No - Recurrent Loss/Infertility: Yes / Mr. Owusus maternal grandmother was reported to have had 12 miscarriages. - MR/DD/Autism: Yes / Mr. Schmitt's paternal cousin (late 20s) has a history of Autism Spectrum Disorder. He lives independently and completed school. - : No - Other: No - Patient's ethnicity: Czech/Turkish - Partner's ethnicity: N. - Patient and/or partner did not report -Gambian, , Mediterranean, Ashkenazi Gnosticist and/or Divehi-Queens/Cajun ancestries unless noted above. - Patient and partner are not consanguineous The remainder of the known family history is negative for infertility, recurrent loss, stillbirth, unexplained infant , defects, malformation syndromes, chromosomal abnormalities, metabolic disorders, developmental delay, intellectual disability, known or suspected genetic disea ses, and consanguinity except as noted above and on the formal pedigree. GENETIC COUNSELING/DISCUSSION: Mrs. Alon Schmitt is a 23 year old female is currently 26w1d gestation. On her early anatomy, there was suspicion for single umbilical artery, which was confirmed on the anatomy ultrasound performed on 07/27/2024. This most recent ultrasound also showed shortened penile length with blunt tip, concerning for possible hypospadias. Of note, Mrs. Schmitt has had a risk reducing negative NIPT result. Mrs. Schmitt and her mother presents for a discussion of the ultrasound findings and additional management options. Possible hypospadias Reviewed that hypospadias is a congenital anomaly of the male urethra, foreskin, and penis that results in abnormal placement of the urethral opening. The location of the ectopic urethral meatus may range anywhere within the glans, shaft of the penis, scrotum, or perineum. Reviewed that hypospadias is a multifactorial complex condition with both genetic and environmentalfactors involved in the pathogenesis. Genetic abnormalities, including both chromosomal and single-gene alterations, have been reported to account for about 30% of hypospadias cases (Donita ortega et al. 2014. PubMed ID: [id number]). They can be inherited in an autosomal dominant, autosomal recessive, X-linked, or Y-linked manner depending on the gene involved. Discussed chromosomal aneuploidy, copy number variants and single gene defects that may be responsible for the suspected hypospadias seen on ultrasound. Single Umbilical artery (two-vessel umbilical cord) I reviewed with Mrs. Schmitt and her mother that an umbilical cord is typically made up of 3 vessels; two arteries and one vein. A single umbilical artery (SUA) occurs when there is only one artery and one vein. Single umbilical artery pregnancies are reported in up to 1% of stevens pregnancies worldwide. Most babies with SUA are born healthy without any additional medical complications. Those with a SUA; however, do have a higher risk for other abnormalities on ultrasound including problems in the heart and kidneys, and in the presence of additional findings, are at an increased chance for an underlying chromosomal abnormality. Mrs. Schmitt has previously completed a echocardiogram on 07/06/2024, which was normal. We discussed that in some studies, SUA has been associated with other complications such as growth restriction while others have shown there is no association. Given the conflicting evidence, current recommendations are to evaluate growth in the third triester with weekly surveillance beginning at 36 weeks gestation. When SUA is seen in combination with other ultrasound findings, such as hypospadias, there is an increased chance that there is a genetic etiology. Mrs. Schmitt, her mother, and I discussed that wholechromosome aneuploidy is unlikely given her gestation and negative/normal NIPT results. Other genetic etiologies, such as microdeletion/microduplication syndromes and single gene disorders have not been assessed. Amniocentesis Discussed the diagnostic option of amniocentesis, which is available to all women in . Described that in this procedure, amniotic fluid is obtained for the purpose of chromosome analysis, microarray and/or other genetic conditions. Reviewed the benefits, limitations, and risks associated with diagnostic testing. Risks reviewed included the less than 1% chance for complications, such a infection, bleeding, and miscarriage. Also reviewed the option of evaluation and/or genetic testing as appropriate. Mrs. Schmitt was offered diagnostic testing during today's appointment and she declined. Mrs. Schmitt is more comfortable waiting to pursue any genetic testing after delivery. A note has been added to plan for cordblood collection. It is important to note that there is no screening or diagnostic testing that can detect all forms of defects or intellectual disability. Carrier Screening Mrs. Schmitt and I discussed the options of carrier screening for ACOG recommended conditions and expanded carrier screening for 267 conditions. Reviewed autosomal recessive and X-linked inheritance as well as the benefits, risks, and limitations of the screening. Discussed the associated costs and turn around times. Reviewed available options if she and her partner are a carrier couple, includingtesting in , testing after , and IVF with preimplantation genetic testing. Discussed the option of stepwise versus concurrent screening. Ms. Schmitt opted for concurrent standard 14 condition carrier screening through [employer]. The orders have been placed by myself and the results will be shared with Mrs. Schmitt as soon as they are available. SUGGESTIONS/PLAN: Mrs. Schmitt opted for concurrent 14 condition carrier screening for herself and her spouse, Mr. Schmitt. The orders have been placed and she will be notified of the results. Mrs. Schmitt declined amniocentesis for Insight analysis, chromosome analysis, and chromosomal microarray at this time. Mrs. Schmitt would like to pursue genetic testing through collected cordblood. A note has been entered into her EMR. Encouraged Mrs. Schmitt to contact me with any questions/concerns/etc via [employer] or my provided phone line ([phone]). Thank you for referring Mrs. Schmitt. Please do not hesitate to call if you have questions/concerns. The patient was seen for a total of 52 minutes, greater than 50% of which was spent [id number] counseling. This plan is being carried out under the oversight of Dr. Erika Feliciano. This note will also be sent to the referring provider via the electronic medical record. Fabienne Del Cid MS, [facility] [place] Licensed, Certified Genetic Counselor [facility] CC: Dr. Concepcion Adkins OB Dr. Erika Feliciano (mold technician) documented in this encounterLake [facility] NoteHNO ID: [id number] Author: FABIENNE DEL CID LGC Service: ? Author Type: Genetic Counselor Type: Progress Notes Filed: 08/23/2024 13:28 Note Text: REPRODUCTIVE GENETIC COUNSELING INITIAL VISIT Alon Schmitt : 2000 Above identifiers confirmed by Fabienne Del Cid MS, [facility] Consultation requested by: Dr. Concepcion Ricci Date of clinic visit: August 03, 2024 Costume Shop Coordinator offered/present: No - Burundian per EMR Alon Schmitt is a 23 year old female referred by Dr. 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 She was accompanied to the visit today by her mother. Ms. Schmitt is seen via a virtual Distance Health visit today via [employer] platform per patient choice. The visit is conducted synchronously in real-time. The patient and her mother are in attendance. I have communicated my name and active licensure. The patient's identity and physical location were verified at the time of this visit. Either the patient or their legal novelties sales representative has been informed of the risks and benefits of -- and alternatives to -- treatment through a remote evaluation and consents to proceed with the evaluation remotely. PRESENTING PROBLEM: Mrs. Alon Schmitt is a 23 year old female is currently 26w1d gestation. On her early anatomy, there was suspicion for single umbilical artery, which was confirmed on the anatomy ultrasound performed on 07/27/2024. This most recent ultrasound also showed shortened penile length with blunt tip, concerning for possible hypospadias. Of note, Mrs. Schmitt has had a risk reducing negative NIPT result. Mrs. Schmitt presents for a discussion of the ultrasound findings and additional management options. REPRODUCTIVE HISTORY: Currently : Yes / 26w1d (by LMP) LMP: 02/01/2025 LUIS: 11/08/2024 Plans to deliver at [place], but is open to delivery at [facility] as needed history: 1. 10/2023, 7w0d SAB 2. 11/2023, [facility] 2. Current Infertility as a couple: No. Infertility with other partners: No. Patient's infertility work-up: Not applicable Partner's infertility work-up: Not applicable Infertility therapies: Not applicable Parental Screens: No prior carrier screening completed Chromosomal analysis: Patient: No Partner: No Products of conception: No exposures: - vitamins or other folate supplementation: Yes - Prescription medicines: Yes, low dose daily aspirin and zofran - OTC medicines, herbal medicines, other supplements: No - Tobacco, alcohol, or illicit drugs: No - Maternal infections or fevers: No - Other known/suspected human teratogens: No Aneuploidy screening: yes (Date: 04/29/24, Gestational Age: 12w3d, Result: negative). - NIPT ([id number]): - Screen negative for Trisomy 21, Trisomy 18, Trisomy 13, and sex chromosome aneuploidies - Reported sex: male Ultrasounds: - Dating scan 03/22/2024 at 7w0d gestation by LMP (performed by Deb Richard CNM): 7w1d by scan. - 1st trimester anatomy performed 04/22/[address] Concepcion Ricci; NT and other anatomic structure reported as unremarkable - Early anatomy performed 06/24/[address] Willa Smith showed suspected single umbilical artery; normal amniotic fluid volume. - anatomy performed 07/27/[address] Concepcion Ricci showed shortened penile length with blunt tip concerning for possible hypospadias; single umbilical artery; normal amniotic fluid volume. - Next growth scan scheduled for 08/10/2024 at [facility] CVS: No Amniocentesis: No complications: - Maternal diabetes, hypertension, seizures, other illness: No - Vaginal bleeding, labor, other complications: Yes, light spotting around 6 weeks - Decreased movement: No, movement is increasing SIGNIFICANT PAST MEDICAL/SURGICAL HISTORIES: Alon: PAST MEDICAL HISTORY Diagnosis Date anxiety/depression History of miscarriage PAST SURGICAL HISTORY Procedure Laterality Date CHOLECYSTECTOMY HX DANDC, DIAG AND/OR THERAPEUTIC Miscarriage TOOTH EXTRACTION Trav Keshia: (age 25 ) Exercise induced asthma FAMILY HISTORY: A 3-generation pedigree was obtained for the patient and her partner and will be scanned into patient's EMR. Of note: - Genetic and/or Inherited Disease: No - Common Disorders: Yes / Mrs. Owusus father has a history of type II diabetes. Both of her paternal grandparents also had type II diabetes. - Defects: Yes / Mr. Schmitt's paternal uncle had an unspecified congenital heart defect. - Seizures: No - Recurrent Loss/Infertility: Yes / Mr. Owusus maternal grandmother was reported to have had 12 miscarriages. - MR/DD/Autism: Yes / Mr. Schmitt's paternal cousin (late 20s) has a history of Autism Spectrum Disorder. He lives independently (more content not included)... [facility]04-04-2025 Telephone encounter Note* Telephone Encounter - Belen Crenshaw RN - 07/30/2024 2:34 PM EDT Pt notified that NSTs will begin at 32 weeks per MFM report on 06/24/24 & US will be completed q4 weeks per MFM report on 07/27/24 d/t single umbilical artery. Pt denies additional questions/concerns at this time. Pt has upcoming appt in office on 08/03/24. Belen Crenshaw RN [place] [address]-04-2025 Miscellaneous Notes* Telephone Encounter - Belen Crenshaw RN - 07/30/2024 2:34 PM EDT Pt notified that NSTs will begin at 32 weeks per MFM report on 06/24/24 & US will be completed q4 weeks per MFM report on 07/27/24 d/t single umbilical artery. Pt denies additional questions/concerns at this time. Pt has upcoming appt in office on 08/03/24. Belen Crenshaw RN * Telephone Encounter - Deb Richard APRN.CNM - 07/30/2024 1:50 PM EDT Patient needs growth US q 4 weeks starting at 32 weeks gestation for BMI. She will need weekly NST's at that time as well. The labs have been reviewed and are within normal ranges during . Deb Richard APRN.CNM * Telephone Encounter - Belen Crenshaw RN - 07/30/2024 1:00 PM EDT 25w4d Woke up around 6:40am this morning. States she has been vomiting since she woke up and has been unable to keep liquids/anything down & c/o mid abdominal upset stomach. Diarrhea. Active movement. Pt states she has taken Vitamin B6, Unisom & Nichelle and workedfor her in 1st trimester. Pt also states she has zofran at home and it has worked for her. States has not taken either. Advised Pt to take a zofran and try drinking small sips of water or gatorade/liquid IV. Advised Pt that if she is unable to keep food/liquids down for >24 hours then she needs to call office/go to ER Pt is calling for anemia reflex panel results stating she saw them on mychart and read as abnormal. From note on JG 06/24/24, states Pt needs NSTs q4 weeks. However, no order placed. Pt is seeing MFM for Single umbilical artery. Assisted Pt with getting another US scheduled in office with OB appt following. Does Pt need NSTs [id number]? Please advise. Belen Crenshaw RN documented in this encounterLake [facility] Telephone encounter Note * Telephone Encounter - Deb Richard APRN.CNM - 07/30/2024 1:50 PM EDT Patient needs growth US q 4 weeks starting at 32 weeks gestation for BMI. She will need weekly NST's at that time as well. The labs have been reviewed and are within normal ranges during . Deb Richard APRN.CNM [facility]04-04-2025 Telephone encounter Note* Telephone Encounter - Belen Crenshaw RN - 07/30/2024 1:00 PM EDT 25w4d Woke up around 6:40am this morning. States she has been vomiting since she woke up and has been unable to keep liquids/anything down & c/o mid abdominal upset stomach. Diarrhea. Active movement. Pt states she has taken Vitamin B6, Unisom & Nichelle and workedfor her in 1st trimester. Pt also states she has zofran at home and it has worked for her. States has not taken either. Advised Pt to take a zofran and try drinking small sips of water or gatorade/liquid IV. Advised Pt that if she is unable to keep food/liquids down for >24 hours then she needs to call office/go to ER Pt is calling for anemia reflex panel results stating she saw them on mychart and read as abnormal. From note on JG 06/24/24, states Pt needs NSTs q4 weeks. However, no order placed. Pt is seeing MFM for Single umbilical artery. Assisted Pt with getting another US scheduled in office with OB appt following. Does Pt need NSTs [id number]? Please advise. Belen Crenshaw RN [facility]04-[facility] Telephone encounter Note* Telephone Encounter - Nemo Thompson RN - 07/29/2024 10:42 AM EDT Call to Alon at the request of Dr. Ricci to introduce myself as customer care professional and the [facility]. I let Alon know I was calling in regards to her recent ultrasound she had with Dr. Ricci. Alon was able to tell me in her own words that at her last ultrasound a single umbilical artery was noted and she had a echocardiogram that was normal. At this current ultrasound there was concern for hypospadias, stating they think the opening of the urethral is on the underside of the penis. We discussed having her come to [facility] for follow up Ultrasound and Consult with the [facility]. She is agreeable to this plan and will be seen on 08/10/24. She is scheduled for genetic consult on 08/03/24 virtually. Alon is agreeable to have me MyChart her the building and address to her appointment for the ultrasound along with my contact information. We discussed the other services offered in the Care Center including support, education, coordination of care and appointment scheduling. Patient's questions answered to the best of my ability. Nemo Thompson RN [facility]04-03-2025 Miscellaneous Notes* Telephone Encounter - Nemo Thompson RN - 07/29/2024 10:42 AM EDT Call to Alon at the request of Dr. Ricci to introduce myself as customer care professional and the Care Center. I let Alon know I was calling in regards to her recent ultrasound she had with Dr. Ricci. Alon was able to tell me in her own words that at her last ultrasound a single umbilical artery was noted and she had a echocardiogram that was normal. At this current ultrasound there was concern for hypospadias, stating they think the opening of the urethral is on the underside of the penis. We discussed having her come to [facility] for follow up Ultrasound and Consult with the Care Center. She is agreeable to this plan and will be seen on 08/10/24. She is scheduled for genetic consult on 08/03/24 virtually. Alon is agreeable to have me MyChart her the building and address to her appointment for the ultrasound along with my contact information. We discussed the other services offered in the Care Center including support, education, coordination of care and appointment scheduling. Patient's questions answered to the best of my ability. Nemo Thompson RN documented in this encounterL[facility] Note Indication Follow-up evaluation to complete anatomic survey Maternal obesity, BMI >45, single umbilical artery Impression The patient is referred for completion of the anatomic survey. - Single, live, intrauterine . - The genitalia shows shortened penile shaft with blunt tip concerning for possible hypospadias, less likely ambiguous genitalia. NIPT was low risk male. SIngle umbilical artery again noted. No other malformations were visualized on a follow-up anatomic survey. - Anatomic survey was completed today. - The EFW is 741 g, at the 28%. AC is at the 41%. - The amniotic fluid volume is normal amount. - The placenta is anterior, fundal. - Not all structural malformations can be detected by ultrasound examination. Recommendations Discussed findings including option for genetic counseling and/or amniocentesis Patient declines amniocentesis but is interested in genetic counseling and care center referral Monthly growth ultrasounds are planned due to single umbilical artery Maternal Assessment Height 163 cm Height (ft) 5 ft Height (in) 4 in Physical Exam Initial weight (lb) 281 lb Initial BMI 48.23 kg/m Maternal assessment other: 2 Para 0 Method Transabdominal ultrasound examination. View: Suboptimal view: limited by maternal body habitus Stevens . Number of fetuses: 1 Dating LMP on: 02/02/2024 GA by LMP 25 w + 1 d LUIS by LMP: 11/08/2024 GA by prior assessment 25 w + 1 d LUIS by prior assessment: 11/08/2024 Ultrasound examination on: 07/27/2024 GA by U/S based upon: AC, BPD, Femur, HC GA by U/S 24 w + 5 d LUIS by U/S: 11/11/2024 Assigned: based on stated LUIS, selected on 07/27/2024 Assigned GA 25 w + 1 d Assigned LUIS: 11/08/2024 General Evaluation Cardiac activity present. FHR 151 bpm. movements: present. Presentation: cephalic Placenta: Placental site: anterior, fundal Umbilical cord: Cord vessels: 2 vessel cord Amniotic fluid: Amount of AF: normal amount. MVP 6.2 cm. FAITH 21.2 cm. Q1 5.0 cm, Q2 6.2 cm, Q3 4.1 cm, Q4 5.9 cm Growth Overview Exam date GA BPD (mm) HC (mm) AC (mm) FL (mm) HL (mm) EFW (g) 06/24/2024 20w 3d 46.1 29% 176.3 40% 165.3 80% 33.4 66% 31.6 55% 386 70% 07/27/2024 25w 1d 60.7 26% 227.6 35% 205.7 41% 43.9 42% 741 28% Biometry Standard BPD 60.7 mm 24w 5d 26% Hadlock OFD 81.1 mm 24w 4d 42% Nicolaides HC 227.6 mm 24w 4d 35% Delvin AC 205.7 mm 25w 1d 41% Hadlock Femur 43.9 mm 24w 4d 42% Delvin EFW 741 g 24w 4d 28% Hadlock EFW (lb) 1 lb EFW (oz) 10 oz EFW by: Hadlock (HC-AC-FL) Extended Coconut Boiler 5.0 mm Extremities / Bony Struc FL / HC 0.19 Other Structures FHR 151 bpm Anatomy Lateral ventricles: normal Cavum septi pellucidi: normal Cerebellum: normal Cisterna magna: normal 4-chamber view: normal RVOT view: normal LVOT view: normal 3-vessel view: normal [id number]-[id number] view: normal Heart / Thorax Situs: situs solitus (normal) Aortic arch view: normal Ductal arch view: normal SVC: normal IVC: normal Rt lung: normal Lt lung: normal Diaphragm: normal Cord insertion: normal Stomach: normal Kidneys: normal Bladder: normal Cervical spine: normal Thoracic spine: normal Lumbar spine: normal Sacral spine: normal sex: male Wants to know sex: yes Performed By: Nicole Chiang RDMS, RVT Read By: Concepcion Ricci M.D.MATERNAL [id number] Miscellaneous Notes* Addendum Note - Sandra Robledo MA - 07/27/2024 10:39 AM EDTAddended by: SANDRA ROBLEDO on: 07/27/2024 10:39 AM Modules accepted: Orders * Quick Notes - Theo Boyle MD - 07/27/2024 10:15 AM EDT Patient at 25wk 1 day had anatomy scan today noting single umbilical artery. Hypospadias (mid-shaft) discovered on scan. report pending and was discussed at some length. Pt denies lof, WEST , vision changes, or ctrx. Reports ++Fm, notes some swelling in hands GTT at next visit Demetrius-BP av/89 pulse 110. Baseline labs for marginal bp ordered. Theo Boyle MD documented in this encounterLake [facility] Note* Addendum Note - Sandra Robledo MA - 07/27/2024 10:39 AM EDTAddended by: SANDRA ROBLEDO on: 07/27/2024 10:39 AM Modules accepted: Orders [facility]04-01-2025 Progress note* Quick Notes - Theo Boyle MD - 07/27/2024 10:15 AM EDT Patient at 25wk 1 day had anatomy scan today noting single umbilical artery. Hypospadias (mid-shaft) discovered on scan. report pending and was discussed at some length. Pt denies lof, WEST , vision changes, or ctrx. Reports ++Fm, notes some swelling in hands GTT at next visit Demetrius-BP av/89 pulse 110. Baseline labs for marginal bp ordered. Theo Boyle MD [facility] Work Phone: 1(389) 597-336804-01-2025 Instructions* Patient Instructions* Sandra Robledo MA - 07/27/2024 8:52 AM EDT SEQUENTIAL SCREENINGS The [facility] offers sequential screenings for women who are interested in screenings for chromosomal abnormalities and certain defects during a . The sequential screen combinesultrasound and blood tests to determine the risk of chromosomal abnormalities, including Down's Syndrome (Trisomy 21) and Trisomy 18, as well as open neural tube defects including spina bifida. Ultrasound examination is performed between 11 weeks and 13 weeks gestational age. Blood tests are drawn after the ultrasound and again later in the between 15 and 21 weeks gestational age. Please let your physician know if you are interested in this testing. It will require an appointment withour air and hydronic balancing technician. This is not an ultrasound performed by a physician in our office during a routine visit. SIGNS AND SYMPTOMS OF LABOR 1. Contractions every 10 minutes or more often 2. Clear, pink, or brownish fluid (water) leaking from vagina 3. Feeling that baby is pushing down, pressure 4. Low, dull backache 5. Cramps that feel like a period 6. Cramps with or without diarrhea If you notice any of the above symptoms, contact our office at [phone] and ask to speak with anurse. After hours, you can call doctors registry at [phone] OR call [facility] at [phone] ask to have the doctor customer care consultant paged. If you consider this an emergency, dial 12-27- or go to your nearest emergency department. NEED HELP? Are you dealing with a violent or abusive relationship? Are you a victim of rape or sexual assult? Call [facility] ([place]) 24 hour Crisis Hotline: 311.730.5159 or 745-980-7825. MANUAL Your Guide to a Healthy manual is now on-line. Visit [email or web address] to download your free copy documented in this encounterLake [facility]03-11-2025 NoteHNO ID: [id number] Author: MELI ANNE MD Service: ? Author Type: Physician Type: Progress Notes Filed: 07/06/2024 10:09 Note Text: NAME: Alon Schmitt [facility] Number.: [id number] Date of : 2000 Date of Visit: July 06, 2024 Referring Provider: Niru Harrington MD Dear Dr. Harrington, Consultation requested for an opinion regarding Alon Schmitt. My final recommendations will be communicated back to the requesting physician by way of shared Medical record. Ms. Alon Schmitt was seen for echocardiogram and pediatric cardiology consultation on July 06, 2024. She is a 23 year old woman, at 22 1/7 weeks gestation referred due to single umbilical artery seen on recent ultrasound and suboptimal cardiac imaging. She has had genetic screening with NIPT and the results were low risk. She herself has no significant past medical history. FOB's uncle was born with an aortic valve abnormality and has undergone multiple operations. There is no other family history of congenital heart disease. Echocardiogram Summary: 1. Normal echocardiogram with no cardiac anomalies detected. 2. Segmental anatomy and situs are normal. 3. Widely patent foramen ovale with normal intrauterine right to left flow. 4. Qualitatively normal right ventricular size and wall thickness with normal systolic function. 5. Normal left ventricular size and wall thickness with normal systolic function. 6. Ductal arch is widely patent with normal intrauterine right to left flow. 7. Aortic arch is widely patent. 8. Normal heart rate and rhythm. 9. No pericardial effusion. Please see full echocardiogram report for complete details. Assessment and Plan: In summary, the echocardiogram today showed normal intracardiac anatomy with normal ventricular function and normal heart rate and rhythm. We discussed these findings with Ms. Alon Schmitt. In addition, the limitations of the echocardiogram and echocardiography in general, including the inability to exclude ASDs, some VSDs, minor valvar abnormalities, partial anomalous pulmonary venous return, persistent patent ductus arteriosus, and coarctation of the aorta, were explained. Based on these data we did not recommend any specific further or cardiac evaluation, though we would be happy to see her back should new concerns arise. Thank you for allowing me to participate in the care of your patient and please do not hesitate to contact me if I can be any further assistance. I spent a total of 40 minutes on the date of the service which included preparing to see the patient, [id number] patient care, completing clinical documentation, obtaining and/or reviewing separately obtained history, counseling and educating the patient/family/caregiver, communicating with other HCPs (not separately reported), independently interpreting results (not separately reported), and communicating results to the patient/family/caregiver. Sincerely, Meli Anne MD [facility] 06[facility] History of Present illness Narrative* Meli Anne MD - 07/06/2024 9:18 AM EDT NAME: Alon Schmitt CLINIC Number.: [id number] Date of : 2000 Date of Visit: July 06, 2024 Referring Provider: Niru Harrington MD Dear Dr. Harrington, Consultation requested for an opinion regarding Alon Schmitt. My final recommendations will be communicated back to the requesting physician by way of shared Medical record. Ms. Alon Schmitt was seen for echocardiogram and pediatric cardiology consultation on July 06, 2024. She is a 23 year old woman, at 22 1/7 weeks gestation referred due to single umbilical artery seen on recent ultrasound and suboptimal cardiac imaging. She has had genetic screening with NIPT and the results were low risk. She herself has no significant past medical history. FOB's uncle was born with an aortic valve abnormality and has undergone multiple operations. There is no other family history of congenital heart disease. Echocardiogram Summary: 1. Normal echocardiogram with no cardiac anomalies detected. 2. Segmental anatomy and situs are normal. 3. Widely patent foramen ovale with normal intrauterine right to left flow. 4. Qualitatively normal right ventricular size and wall thickness with normal systolic function. 5. Normal left ventricular size and wall thickness with normal systolic function. 6. Ductal arch is widely patent with normal intrauterine right to left flow. 7. Aortic arch is widely patent. 8. Normal heart rate and rhythm. 9. No pericardial effusion. Please see full echocardiogram report for complete details. Assessment and Plan: In summary, the echocardiogram today showed normal intracardiac anatomy with normal ventricular function and normal heart rate and rhythm. We discussed these findings with . Alon Schmitt. In addition, the limitations of the echocardiogram and echocardiography in general, including the inability to exclude ASDs, some VSDs, minor valvar abnormalities, partial anomalous pulmonary venous return, persistent patent ductus arteriosus, and coarctation of the aorta, were explained. Based on these data we did not recommend any specific further or cardiac evaluation,though we would be happy to see her back should new concerns arise. Thank you for allowing me to participate in the care of your patient and please do not hesitate to contact me if I can be any further assistance. I spent a total of 40 minutes on the date of the service which included preparing to see the patient, [id number] patient care, completing clinical documentation, obtaining and/or reviewing separately obtained history, counseling and educating the patient/family/caregiver, communicating with other HCPs (not separately reported), independently interpreting results (not separately reported), and communicating results to the patient/family/caregiver. Sincerely, Meli Anne MD July 06, 2024 documented in this encounterLake [facility]-27-2025 Progress note* Quick Notes - Niru Harrington MD - 06/24/2024 9:30 AM EST S: Alon Schmitt is a 23 year old female who presents at 11/08/2024, by Last Menstrual Period for a routine visit. Denies headache, visual changes, chest pain, shortness of breath, vaginal bleeding,leakage of fluid, or dysuria. Feeling well, no complaints. O: See flow sheet Gen: No apparent distress Anatomy completed today 2VC- Reviewed risk of IUGR and cardiac anomolies Echo ordered. Already planned growth q 4 wee and NSTS due to BMI ASSESSMENT/PLAN: 1. Single umbilical artery affecting management of mother, antepartum, single gestation - ICD9: V23.89, ICD10: O09.899 (primary diagnosis) Growth q 4 - ECHO 2. 20 weeks gestation of - ICD9: V22.2, ICD10: Z3A.20 3. Supervision of high risk in second trimester - ICD9: V23.9, ICD10: O09.92 4. Obesity affecting in second trimester, unspecified obesity type - ICD9: 649.13, ICD10:O99.212 Growth q 4 NSTs weekly starting 32 weeks Niru Harrington MD [facility]02-27-2025 Miscellaneous Notes* Quick Notes - Niru Harrington MD - 06/24/2024 9:30 AM EST S: Alon Schmitt is a 23 year old female who presents at 11/08/2024, by Last Menstrual Period for a routine visit. Denies headache, visual changes, chest pain, shortness of breath, vaginal bleeding,leakage of fluid, or dysuria. Feeling well, no complaints. O: See flow sheet Gen: No apparent distress Anatomy completed today 2VC- Reviewed risk of IUGR and cardiac anomolies Echo ordered. Already planned growth q 4 wee and NSTS due to BMI ASSESSMENT/PLAN: 1. Single umbilical artery affecting management of mother, antepartum, single gestation - ICD9: V23.89, ICD10: O09.899 (primary diagnosis) Growth q 4 - ECHO 2. 20 weeks gestation of - ICD9: V22.2, ICD10: Z3A.20 3. Supervision of high risk in second trimester - ICD9: V23.9, ICD10: O09.92 4. Obesity affecting in second trimester, unspecified obesity type - ICD9: 649.13, ICD10:O99.212 Growth q 4 NSTs weekly starting 32 weeks Niru Harrington MD documented in this encounterLake [facility]02-27-2025 Instructions* Patient Instructions* Jeanne Espinosa MA - 06/24/2024 9:04 AM EST SEQUENTIAL SCREENINGS The [facility] offers sequential screenings for women who are interested in screenings for chromosomal abnormalities and certain defects during a . The sequential screen combinesultrasound and blood tests to determine the risk of chromosomal abnormalities, including Down's Syndrome (Trisomy 21) and Trisomy 18, as well as open neural tube defects including spina bifida. Ultrasound examination is performed between 11 weeks and 13 weeks gestational age. Blood tests are drawn after the ultrasound and again later in the between 15 and 21 weeks gestational age. Please let your physician know if you are interested in this testing. It will require an appointment withour air and hydronic balancing technician. This is not an ultrasound performed by a physician in our office during a routine visit. SIGNS AND SYMPTOMS OF LABOR 1. Contractions every 10 minutes or more often 2. Clear, pink, or brownish fluid (water) leaking from vagina 3. Feeling that baby is pushing down, pressure 4. Low, dull backache 5. Cramps that feel like a period 6. Cramps with or without diarrhea If you notice any of the above symptoms, contact our office at [phone] and ask to speak with anurse. After hours, you can call doctors registry at [phone] OR call [facility] at [phone] ask to have the doctor customer care consultant paged. If you consider this an emergency, dial 9-1-7 or go to your nearest emergency department. NEED HELP? Are you dealing with a violent or abusive relationship? Are you a victim of rape or sexual assult? Call [facility] ([place]) 24 hour Crisis Hotline: 790.780.6974 or 735-834-6841. MANUAL Your Guide to a Healthy manual is now on-line. Visit [email or web address] to download your free copy documented in this encounterLake [facility]01-27-2025 Progress note* Quick Notes - Faisal Collins APRN.MANAGER CASINO - 05/24/2024 8:07 AM EST EH - S: Alon Orta is a 23 year old female who presents at 16w0d for a routine visit. Feeling movement. Denies headache, visual changes, chest pain, shortness of breath, vaginal bleeding, leakageof fluid, or dysuria. Has possible ear infection? O: See flow sheet Gen: No apparent distress Abd: Gravid, nontender ASSESSMENT/PLAN: 1. Supervision of high risk in second trimester - ICD9: V23.9, ICD10: O09.92 (primary diagnosis) - Continue LDA and PNV - Zofran PRN for nausea - Recommend urgent care evaluation for possible ear infection. Denies fever. 2. 16 weeks gestation of - ICD9: V22.2, ICD10: Z3A.16 - Anatomy ultrasound ordered 3. Obesity affecting in second trimester, unspecified obesity type - ICD9: 649.13, ICD10:O99.212 - Pre BMI 47 - Plan for growth and then weekly NSTs starting at 32 weeks. PTL precautions reviewed. RTO in 4 weeks or sooner as needed. Faisal Collins APRN.HARVINDER [facility]01-27-2025 Miscellaneous Notes* Quick Notes - Faisal Collins APRN.CNP - 05/24/2024 8:07 AM EST EH - S: Alon Orta is a 23 year old female who presents at 16w0d for a routine visit. Feeling movement. Denies headache, visual changes, chest pain, shortness of breath, vaginal bleeding, leakageof fluid, or dysuria. Has possible ear infection? O: See flow sheet Gen: No apparent distress Abd: Gravid, nontender ASSESSMENT/PLAN: 1. Supervision of high risk in second trimester - ICD9: V23.9, ICD10: O09.92 (primary diagnosis) - Continue LDA and PNV - Zofran PRN for nausea - Recommend urgent care evaluation for possible ear infection. Denies fever. 2. 16 weeks gestation of - ICD9: V22.2, ICD10: Z3A.16 - Anatomy ultrasound ordered 3. Obesity affecting in second trimester, unspecified obesity type - ICD9: 649.13, ICD10:O99.212 - Pre BMI 47 - Plan for growth and then weekly NSTs starting at 32 weeks. PTL precautions reviewed. RTO in 4 weeks or sooner as needed. Faisal Collins APRN.HARVINDER documented in this encounterLake [facility]01-27-2025 Instructions* Patient Instructions* Alyssa Donnelly MA - 05/24/2024 8:04 AM EST SEQUENTIAL SCREENINGS The [facility] offers sequential screenings for women who are interested in screenings for chromosomal abnormalities and certain defects during a . The sequential screen combinesultrasound and blood tests to determine the risk of chromosomal abnormalities, including Down's Syndrome (Trisomy 21) and Trisomy 18, as well as open neural tube defects including spina bifida. Ultrasound examination is performed between 11 weeks and 13 weeks gestational age. Blood tests are drawn after the ultrasound and again later in the between 15 and 21 weeks gestational age. Please let your physician know if you are interested in this testing. It will require an appointment withour air and hydronic balancing technician. This is not an ultrasound performed by a physician in our office during a routine visit. SIGNS AND SYMPTOMS OF LABOR 1. Contractions every 10 minutes or more often 2. Clear, pink, or brownish fluid (water) leaking from vagina 3. Feeling that baby is pushing down, pressure 4. Low, dull backache 5. Cramps that feel like a period 6. Cramps with or without diarrhea If you notice any of the above symptoms, contact our office at [phone] and ask to speak with anurse. After hours, you can call doctors registry at [phone] OR call [facility] at [phone] ask to have the doctor customer care consultant paged. If you consider this an emergency, dial 9--1 or go to your nearest emergency department. NEED HELP? Are you dealing with a violent or abusive relationship? Are you a victim of rape or sexual assult? Call [facility] [place] ([place]) 24 hour Crisis Hotline: 172.881.4018 or 775-073-8001. MANUAL Your Guide to a Healthy manual is now on-line. Visit [email or web address] to download your free copy documented in this encounterLake [facility]01-02-2025 Progress note* Quick Notes - Ankita Carrillo MD - 04/29/2024 9:51 AM EST KJ - VB No. LOF No. CTXS No. Movement: absent. Other c/o: some nausea with emesis (2-4 times per day). She tolerates PO. Medication list reviewed. Physical Exam See Flow Sheet Gen: no accute distress, well appearing Abd: soft, nontender, gravid A/P 12w3d Estimated Date of Delivery: 11/08/24 Anatomy US ordered NIPT ordered N&V - add zofran and recommend frequent snacks Ankita Carrillo MD [facility]01-02-2025 Miscellaneous Notes* Quick Notes - Ankita Carrillo MD - 04/29/2024 9:51 AM EST KJ - VB No. LOF No. CTXS No. Movement: absent. Other c/o: some nausea with emesis (2-4 times per day). She tolerates PO. Medication list reviewed. Physical Exam See Flow Sheet Gen: no accute distress, well appearing Abd: soft, nontender, gravid A/P 12w3d Estimated Date of Delivery: 11/08/24 Anatomy US ordered NIPT ordered N&V - add zofran and recommend frequent snacks Ankita Carrillo MD documented in this encounterLake [facility]01-02-2025 Instructions* Patient Instructions* Ronni Oshea MA - 04/29/2024 9:24 AM EST SEQUENTIAL SCREENINGS The [facility] offers sequential screenings for women who are interested in screenings for chromosomal abnormalities and certain defects during a . The sequential screen combinesultrasound and blood tests to determine the risk of chromosomal abnormalities, including Down's Syndrome (Trisomy 21) and Trisomy 18, as well as open neural tube defects including spina bifida. Ultrasound examination is performed between 11 weeks and 13 weeks gestational age. Blood tests are drawn after the ultrasound and again later in the between 15 and 21 weeks gestational age. Please let your physician know if you are interested in this testing. It will require an appointment withour air and hydronic balancing technician. This is not an ultrasound performed by a physician in our office during a routine visit. SIGNS AND SYMPTOMS OF LABOR 1. Contractions every 10 minutes or more often 2. Clear, pink, or brownish fluid (water) leaking from vagina 3. Feeling that baby is pushing down, pressure 4. Low, dull backache 5. Cramps that feel like a period 6. Cramps with or without diarrhea If you notice any of the above symptoms, contact our office at [phone] and ask to speak with anurse. After hours, you can call doctors registry at [phone] OR call [facility] at [phone] ask to have the doctor customer care consultant paged. If you consider this an emergency, dial 9-8-3 or go to your nearest emergency department. NEED HELP? Are you dealing with a violent or abusive relationship? Are you a victim of rape or sexual assult? Call [facility] ([place]) 24 hour Crisis Hotline: 797.433.3901 or 518-978-0029. MANUAL Your Guide to a Healthy manual is now on-line. Visit [email or web address] to download your free copy documented in this encounterL[facility] Telephone encounter Note * Telephone Encounter - Deb Richard APRN.CNM - 04/01/2024 12:46 PM EST She can come and leave a urine sample at the lab for testing. Deb Richard APRN.CNM [facility]12-05-2024 Miscellaneous Notes* Telephone Encounter - Deb Richard APRN.CNM - 04/01/2024 12:46 PM EST She can come and leave a urine sample at the lab for testing. Deb Richard APRN.CNM documented in this encounterLake [facility]11-25-2024 Progress note* Quick Notes - Deb Richard APRN.CNM - 03/22/2024 11:16 AM EST Patient seen for NOB. See progress note. Deb Richard APRN.CNM [facility]11-25-2024 Miscellaneous Notes* Quick Notes - Deb Richard APRN.CNM - 03/22/2024 11:16 AM EST Patient seen for NOB. See progress note. Deb Richard APRN.CNM documented in this encounterLake [facility]11-25-2024 Instructions* Patient Instructions* Deb Richard APRN.CNM - 03/22/2024 8:59 AM EST Vitamin B 6 - Take 2- 3 times a day add in Unisom 12-25 mg at night Please select the following link to access the [facility] Your Guide to a Healthy . [email or web address] documented in this encounterLake [facility]11-21-2024 NoteHNO ID: [id number] Author: DEB RICHARD APRN.CNM Service: ? Author Type: Plastics Supervisor Type: Progress Notes Filed: 03/22/2024 11:17 Note Text: *Pt has a history of anxiety/depression diagnosed at age 13. She has been off medication x 2 years. Believes she is doing well off medication. Currently not in counseling. Denies any history of suicidal thoughts or thoughts of hurting others. Discussed increased risks of depression during and and importance of reporting the development or worsening of symptoms should they occur. *Has a history of one miscarriage and 1 chemical . Currently prescribed Prometrium and baby aspirin. Had lab workup by Dr. Erin Singh at [facility]. Mildly elevated protein S total but all other labs were negative *Patient seen in the emergency room on 03/15/2024 at [facility] for brown discharge and pelvic pain. Ultrasound was done that confirmed positive cardiac activity. Denies any bleeding since last night. Denies any pelvic pain for the last 2 days. *Patient considering genetic carrier screening and aneuploidy screening. Contact information for integrated genetics and [employer] labs given to patient to check on insurance coverage. INITIAL OB ASSESSMENT HPI: Alon Orta is a 23 year old White here to establish Obstetrical Care. Patient's last menstrual period was 02/02/2024 (exact date). from OB Dating Form. was planned Complaints: (!) Vaginal bleeding (Had bron spotting from -03/17-was seen in [facility] ER, treated with Amixicillin , pink eye, ear infection , Strep infection and pneumonia) OB History T0 L0 SAB1 IAB0 Ectopic0 Multiple0 Live Births0 Comment: Pt states she had a chemical # 1 - Date: 11/20/23, Sex: None, Weight: None, GA: 7w0d, Type: MISSED AB, Apgar1: None, Apgar5: None, Living: None, Comments: [facility] # 2 - Date: None, Sex: None, Weight: None, GA: None, Type: None, Apgar1: None, Apgar5: None, Living: None, Comments: None Previous history: Prior : never History of 4th degree laceration: No History of shoulder dystocia: No History of Hypertensive disorders including pre-eclampsia or gestational hypertension: No History of gestational diabetes: No Patient's Risk Screening for delivery: Have you had a prior stevens between 20w and 36w6d? No How many pregnancies have you had before? 1 Did you have a previous baby with a GBS Infection? No Please select all that apply for any prior : N/A MEDICAL/PSYCHOSOCIAL HISTORY: History of hemorrhage or bleeding concerns: No Thyroid Disease: No History of chronic hypertension: No History of pre-existing diabetes: No No results found for: ABORHD No weight on file for this encounter. Last Pap: 04/10/2022 History of abnormal pap: No Prior treatment for cervical dysplasia: none. Last HPV: History of STDs: None Partner History of STDs: None Did you have a partner with Herpes? No Tobacco use: No E-Cigarette/Vaping Use: No Caffeine use: Yes, 1 cup of day of decaf coffee every other day Drug use: No Alcohol use: No Multivitamin with Folic acid: Yes Would refuse blood transfusion if medically necessary: No Social Needs: How often does this describe you? I don't have enough money to pay my bills: Never Within the past 12 months, have you worried that your food would run out before you had money to buy more? Never In the past 12 months, has lack of reliable transportation kept you from going to medical appointments or work, or from getting things needed for daily living? Never In the past 12 months, have you had any concerns about having a place to live, or about the condition or quality of your housing? Never Would you like more information on any of the following (please check all that apply)? Centering (group care classes) Social History: Do you have any history of depression, anxiety, PTSD, or other mood problems? Yes Do you have a history of abuse or trauma that may impact your experience? No Are you currently employed? Yes Depression/Anxiety Screening: denies symptoms of depression. OB Depression and Anxiety Screening- This Encounter (since 03/17/2024) Over the past 2 weeks have you felt down, depressed, or hopeless? Negative Over the past two weeks, have you felt little interest or pleasure in doing things?? Negative Feeling nervous, anxious or on edge 0-Not at all Not being able to stop or control worrying 0-Not al all Anxiety Pre-Screening Total (If >/= 3 additional questions will be reviewed) 0 Genetic Screening: Partner present: No Patient verbalized knowledge of partner family health history: Yes Do you or your partner have any personal or family history of defects not previously discussed: No Do you have history of a complicated by anomal (more content not included)...[facility]11-21-2024 History of Present illness Narrative* Deb Richard CONSTRUCTION RECRUITER.WENDYM - 03/18/2024 8:53 AM EST *Pt has a history of anxiety/depression diagnosed at age 13. She has been off medication x 2 years.Believes she is doing well off medication. Currently not in counseling. Denies any history of suicidal thoughts or thoughts of hurting others. Discussed increased risks of depression during pregnancyand and importance of reporting the development or worsening of symptoms should they occur. *Has a history of one miscarriage and 1 chemical . Currently prescribed Prometrium and baby aspirin. Had lab workup by Dr. Erin Singh at [facility]. Mildly elevated protein S total but all otherlabs were negative *Patient seen in the emergency room on 03/15/2024 at [facility] for brown dischargeand pelvic pain. Ultrasound was done that confirmed positive cardiac activity. Denies any bleeding since last night. Denies any pelvic pain for the last 2 days. *Patient considering genetic carrier screening and aneuploidy screening. Contact information for integrated genetics and [employer] labs given to patient to check on insurance coverage. INITIAL OB ASSESSMENT HPI: Alon Orta is a 23 year old White here to establish Obstetrical Care. Patient's last menstrual period was 02/02/2024 (exact date). from OB Dating Form. was planned Complaints: (!) Vaginal bleeding (Had bron spotting from -03/17-was seen in [facility] ER, treated with Amixicillin , pink eye, ear infection , Strep infection and pneumonia) OB History T0 L0 SAB1 IAB0 Ectopic0 Multiple0 Live Births0 Comment: Pt states she had a chemical # 1 - Date: 11/20/23, Sex: None, Weight: None, GA: 7w0d, Type: MISSED AB, Apgar1: None, Apgar5: None, Living: None, Comments: [facility] # 2 - Date: None, Sex: None, Weight: None, GA: None, Type: None, Apgar1: None, Apgar5: None, Living: None, Comments: None Previous history: Prior : never History of 4th degree laceration: No History of shoulder dystocia: No History of Hypertensive disorders including pre-eclampsia or gestational hypertension: No History of gestational diabetes: No Patient's Risk Screening for delivery: Have you had a prior stevens between 20w and 36w6d? No How many pregnancies have you had before? 1 Did you have a previous baby with a GBS Infection? No Please select all that apply for any prior : N/A MEDICAL/PSYCHOSOCIAL HISTORY: History of hemorrhage or bleeding concerns: No Thyroid Disease: No History of chronic hypertension: No History of pre-existing diabetes: No No results found for: ABORHD No weight on file for this encounter. Last Pap: 04/10/2022 History of abnormal pap: No Prior treatment for cervical dysplasia: none. Last HPV: History of STDs: None Partner History of STDs: None Did you have a partner with Herpes? No Tobacco use: No E-Cigarette/Vaping Use: No Caffeine use: Yes, 1 cup of day of decaf coffee every other day Drug use: No Alcohol use: No Multivitamin with Folic acid: Yes Would refuse blood transfusion if medically necessary: No Social Needs: How often does this describe you? I don't have enough money to pay my bills: Never Within the past 12 months, have you worried that your food would run out before you had money to buy more? Never In the past 12 months, has lack of reliable transportation kept you from going to medical appointments or work, or from getting things needed for daily living? Never In the past 12 months, have you had any concerns about having a place to live, or about the condition or quality of your housing? Never Would you like more information on any of the following (please check all that apply)? Centering (group care classes) Social History: Do you have any history of depression, anxiety, PTSD, or other mood problems? Yes Do you have a history of abuse or trauma that may impact your experience? No Are you currently employed? Yes Depression/Anxiety Screening: denies symptoms of depression. OB Depression and Anxiety Screening- This Encounter (since 03/17/2024) Over the past 2 weeks have you felt down, depressed, or hopeless? Negative Over the past two weeks, have you felt little interest or pleasure in doing things? Negative Feeling nervous, anxious or on edge 0-Not at all Not being able to stop or control worrying 0-Not al all Anxiety Pre-Screening Total (If >/= 3 additional questions will be reviewed) 0 Genetic Screening: Partner present: No Patient verbalized knowledge of partner family health history: Yes Do you or your partner have any personal or family history of defects not previously discussed: No Do you have history of a complicated by anomaly, genetic condition, or demise: No Preeclampsia Risk Screening: Screening for prevention of preeclampsia: High risk factors: None Moderate risk ractors: Nulliparity and Obesity (body mass index greater than 30) OB Risk Screening: Completed, no positive findings documented. 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 VIT [id number] ORAL Take by mouth. progesterone micronized (PROMETRIUM) 200 mg capsule Use 1 capsule vaginally daily at bedtime. Starting with positive test. 30 capsule 1 VAZALORE 81 mg cap TAKE 81 MG BY MOUTH ONCE DAILY. STARTING WITH POSITIVE TEST. (Patient not taking: Reported on 03/18/2024) 30 capsule 1 amoxicillin (AMOXIL) 500 mg capsule Take 500 mg by mouth three times a day. (Patient not taking: Reported on 02/16/2024) FLUoxetine (PROZAC) 40 mg capsule Take 40 mg by mouth once daily. (Patient not taking: Reported on 02/16/2024) No current facility-administered medications for this visit. Allergies As of Date: 03/22/2024 (No Known Allergies) Fully Assessed 02/16/2024 Does patient have penicillin allergy: No REVIEW OF SYSTEMS: GENERAL: Negative for: Fever or Chills HEENT: Negative for: Headache, Impaired Vision, Ringing in Ears, Nosebleeds NECK: Negative for: Swelling, Pain, Stiffness RESPIRATORY: Negative for: Cough, Shortness of breath, Wheezing GASTROINTESTINAL: Negative for: Heartburn, Constipation, Diarrhea, Blood in stool, Vomiting and Positive for: Nausea and Vomiting MUSCULOSKELETAL: Negative for: Muscle or joint pain, stiffness, Joint swelling NEUROLOGIC/PSYCHIATRIC: Negative for: Weakness, Paralysis, Numbness, Tingling, Tremor, Currently anxiety - Hx of depression / on medicaitons SKIN: Negative for: Rash, Itching GENITOURINARY: Negative for: vaginal itching, vaginal discharge, hematuria or dysuria SENSITIVE EXAM: The sensitive examination was discussed with the Patient or Patient's Authorized Asphalt Paving Supervisor. As applicable, any other physician, advance practice provider, medical student, or other health professional student that will be observing or involved in the sensitive examination for educational or training purposes was discussed with the Patient or Authorized Asphalt Paving Supervisor. The Patient or Authorized Asphalt Paving Supervisor has agreed to proceed with the sensitive examination. (Sensitive examination includes inspection and/or palpation of the breasts, pelvis, prostate and anorectal regions). PHYSICAL EXAM: BP 168/86 Ht 5' 4.5 (1.64m) Wt 281 lb (127.5kg) LMP 02/02/2024 BMI 47.51 kg/(m^2). GENERAL: pleasant in no apparent distress DERMATOLOGY: Normal, without lesions, non-icteric, and non-hirsute NECK: Supple and full range of motion CHEST: Normal inspiratory effort BREAST: soft, non-tender, symmetric, no dominant mass, normal nipple-areolar complex, no lymphadenopathy, and no nipple discharge ABDOMEN: soft, non-tender, and no masses NEURO: alert and oriented x3,exam grossly non-focal PELVIS: External genitalia normal without lesions. Perineal body intact. No vaginal or cervical lesions. Limited OB ultrasound exam: single intrauterine , positive cardiac activity, and crown-rump length 7w1d ASSESSMENT/PLAN: 1. 7 weeks gestation of - ICD9: V22.2, ICD10: Z3A.01 (primary diagnosis) 2. Encounter for care in first trimester of first - ICD9: V22.0, ICD10: Z34.01 3. Encounter for supervision of high risk in first trimester, antepartum 4. Obesity affecting in first trimester, unspecified obesity type - ICD9: 649.13, ICD10: O99.211 PLAN: 1) Patient oriented to practice. Patient given new OB orientation folder. Discussed nutrition, folic acid supplementation, dietary guidelines, exercise, smoking, alcohol, caffeine, and drug use. Discussed gestational weight gain guidelines. Discussed routine OB labs including STD/HIV. Discussed how to access Your guide to a health and the Radio Communication Coordinator. 2) Screening: Hemoglobin A1C: ordered Baby Aspirin: The patient has been counseled about the potential benefits of low dose aspirin in and our recommendation that this be offered to all patients, regardless of whether they meet the high risk criteria specified above. She Accepts Aneuploidy Screening: Discussed aneuploidy screening, nuchal translucency/first trimester early anatomy ultrasound and NIPT. The risks/benefits and limitations of NIPT/aneuploidy screening were reviewed including the potential for false negative and false positive results. The availability of genetic counseling was reviewed. Information on aneuploidy screening was provided. The patient chooses toproceed with First trimester early anatomy ultrasound (12-13w6d) and NIPT (10 weeks) Myriad Carrier Screening: Discussed myriad carrier screening. We discussed the availability of professional-society guided carrier screening and reviewed the conditions screened and limitations of screening. The availability of genetic counseling was reviewed. Information on carrier screening was provided. The patient Declines 3) Patient offered option of Virtual Visits. Patient prefers in person visits. 4) Obesity (BMI >30), will order early glucose screen or Hemoglobin A1C. Follow up in 4 weeks or sooner prn. Deb Richard APRN.CNM documented in this encounterLake [facility]11-18-[facility] Telephone encounter Note * Telephone Encounter - Nicole Morley RN - 03/15/2024 3:32 PM EST Patient notified and voiced understanding. Nicole Morley RN [facility]11-18-2024 Miscellaneous Notes* Telephone Encounter - Nicole Morley RN - 03/15/2024 3:32 PM EST Patient notified and voiced understanding. Nicole Morley RN * Telephone Encounter - Darryl Adkins MD - 03/15/2024 3:01 PM EST Ok to keep appointment for next week unless something changes. Monitor bleeding and call with worsening bleeding or pain * Telephone Encounter - Kiara Car RN - 03/15/2024 12:17 PM EST Patient states she went to [facility] ER this morning with bleeding in early . LMP 02/02/24 (6weeks today) and u/s today she said u/s showed she was measuring 6w2d. She is having brown discharge anddull pelvic aching, but no significant cramping. Unable to pull records d/t [employer] access (can have Ary when she returns from lunch if needed). She said ER doctor did speak with SW and she was told to call the office for follow up. She is asking if she needs repeat u/s this week? Her NOB is scheduled for 03/22/24. Kiara Car RN documented in this encounterLake [facility]11-18-2024 Telephone encounter Note * Telephone Encounter - Darryl Adkins MD - 03/15/2024 3:01 PM EST Ok to keep appointment for next week unless something changes. Monitor bleeding and call with worsening bleeding or pain [facility]11-18-2024 Telephone encounter Note* Telephone Encounter - Kiara Car RN - 03/15/2024 12:17 PM EST Patient states she went to [facility] ER this morning with bleeding in early . LMP 02/02/24 (6weeks today) and u/s today she said u/s showed she was measuring 6w2d. She is having brown discharge anddull pelvic aching, but no significant cramping. Unable to pull records d/t [employer] access (can have Ary when she returns from lunch if needed). She said ER doctor did speak with SW and she was told to call the office for follow up. She is asking if she needs repeat u/s this week? Her NOB is scheduled for 03/22/24. Kiara Car RN [facility]11-13-2024 Telephone encounter Note* Telephone Encounter - Belen Crenshaw RN - 03/10/2024 12:14 PM EST Pt notified and states she would like to get one more and this will be her last one. NOB appt scheduled. Belen Crenshaw RN [facility]11-13-2024 Miscellaneous Notes* Telephone Encounter - Belen Crenshaw RN - 03/10/2024 12:14 PM EST Pt notified and states she would like to get one more and this will be her last one. NOB appt scheduled. Belen Crenshaw RN * Telephone Encounter - Niru Harrington MD - 03/10/2024 11:57 AM EST HCG is rising appropriately. She can continue with HCG's but there is no need. * Telephone Encounter - Nicole Morley RN - 03/10/2024 8:14 AM EST Patient calling asking provider customer care consultant to review her results as Dr. Adkins is not in the office until tomorrow. Patient had last HCG quant drawn yesterday and states that she is supposed to get another one drawn tomorrow. Patient had previously requested in a [email or web address] message to have quant levels drawn twice a week d/t her history of miscarriage. Patient denies any pain or cramping. She is scheduled for NOB on 03/22. hCG Quantitative, Blood (mIU/mL) Date Value 03/09/2024 2,342.0 03/05/2024 667.4 03/03/2024 263.8 03/01/2024 117.3 Nicole Morley RN documented in this encounterLake County [facility]11-13-20[facility] Telephone encounter Note * Telephone Encounter - Niru Harrington MD - 03/10/2024 11:57 AM EST HCG is rising appropriately. She can continue with HCG's but there is no need. [facility] Work Phone: [phone] 195-431411-13-2024 Telephone encounter Note* Telephone Encounter - iNcole Morley RN - 03/10/2024 8:14 AM EST Patient calling asking provider customer care consultant to review her results as Dr. Adkins is not in the office until tomorrow. Patient had last HCG quant drawn yesterday and states that she is supposed to get another one drawn tomorrow. Patient had previously requested in a [email or web address] message to have quant levels drawn twice a week d/t her history of miscarriage. Patient denies any pain or cramping. She is scheduled for NOB on 03/22. hCG Quantitative, Blood (mIU/mL) Date Value 03/09/2024 2,342.0 03/05/2024 667.4 03/03/2024 263.8 03/01/2024 117.3 Nicole Morley RN [facility]11-11-[facility] Telephone encounter Note* Telephone Encounter - Darryl Adkins MD - 03/08/2024 2:51 PM EST filed [facility]11-11-2024 Miscellaneous Notes* Telephone Encounter - Darryl Adkins MD - 03/08/2024 2:51 PM EST filed * Telephone Encounter - Nicole Morley RN - 03/08/2024 1:54 PM EST Request received from pharmacy for change as original medication is on back order. Nicole Morley RN documented in this encounterLake [facility]11-11-2024 Telephone encounter Note * Telephone Encounter - Nicole Morley RN - 03/08/2024 1:54 PM EST Request received from pharmacy for change as original medication is on back order. Nicole Morley RN [facility]11-07-2024 Telephone encounter Note* Telephone Encounter - Belen Crenshaw RN - 03/04/2024 9:49 AM EST Pt notified to get drawn tomorrow. NOB appt scheduled. Transferred to [facility] to get lab appt scheduledfor tomorrow morning. Belen Crenshaw RN [facility]11-07-2024 Telephone encounter Note* Telephone Encounter - Belen Crenshaw RN - 03/04/2024 9:49 AM EST ----- Message from Darryl Adkins MD sent at 03/04/2024 9:24 AM EST ----- See pt my chart message from today. Will order serial HCG levels. To have next level drawn tomorrow. Notify pt she will not get results until Friday. Can schedule 7 week NOB for bedside US thanks [facility]11-07-2024 Miscellaneous Notes* Telephone Encounter - Belen Crenshaw RN - 03/04/2024 9:49 AM EST Pt notified to get drawn tomorrow. NOB appt scheduled. Transferred to PSS to get lab appt scheduledfor tomorrow morning. Belen Crenshaw RN * Telephone Encounter - Belen Crenshaw RN - 03/04/2024 9:49 AM EST ----- Message from Darryl Adkins MD sent at 03/04/2024 9:24 AM EST ----- See pt my chart message from today. Will order serial HCG levels. To have next level drawn tomorrow. Notify pt she will not get results until Friday. Can schedule 7 week NOB for bedside US thanks documented in this encounterLake [facility]11-07-2024 Telephone encounter Note * Telephone Encounter - Darryl Adkins MD - 03/04/2024 9:24 AM EST Serial hcg levels ordered [facility]11-07-2024 Miscellaneous Notes* Telephone Encounter - Darryl Adkins MD - 03/04/2024 9:24 AM EST Serial hcg levels [facility] Tele[facility] encounter Note * Telephone Encounter - Deb Richard APRN.CNM - 02/26/2024 10:11 AM EDT Order signed. Deb Richard APRN.CNM [facility] Work Phone: [phone] 182-302610-31-2024 Miscellaneous Notes* Telephone Encounter - Deb Richard APRN.CNM - 02/26/2024 10:11 AM EDT Order signed. Deb Richard APRN.CNM * Telephone Encounter - Belen Crenshaw RN - 02/26/2024 9:42 AM EDT See Pt's Trenergit message. HCG orders pended. Please file then will contact Pt to have drawn.Belen Crenshaw RN documented in [facility] Telephone encounter Note * Telephone Encounter - Belen Crenshaw RN - 02/26/2024 9:42 AM EDT See Pt's Trenergit message. HCG orders pended. Please file then will contact Pt to have drawn.Belen Crenshaw RN [facility]10-24-[facility] Telephone encounter Note* Telephone Encounter - Darryl Adkins MD - 02/19/2024 3:21 PM EDT filed [facility]10-24-2024 Miscellaneous Notes* Telephone Encounter - Darryl Adkins MD - 02/19/2024 3:21 PM EDT filed * Telephone Encounter - Kiara Car RN - 02/18/2024 1:06 PM EDT Pharmacy requesting different rx for aspirin. Pharmacy comment: Product Backordered/Unavailable Requested Prescriptions Pending Prescriptions Disp Refills VAZALORE 81 mg cap [Pharmacy Med Name: VAZALORE 81 MG CAPSULE] 30 capsule 1 Sig: TAKE 81 MG BY MOUTH ONCE DAILY. STARTING WITH POSITIVE TEST. Kiara Car RN documented [facility] Telephone encounter Note * Telephone Encounter - Kiara Car RN - 02/18/2024 1:06 PM EDT Pharmacy requesting different rx for aspirin. Pharmacy comment: Product Backordered/Unavailable Requested Prescriptions Pending Prescriptions Disp Refills VAZALORE 81 mg cap [Pharmacy Med Name: VAZALORE 81 MG CAPSULE] 30 capsule 1 Sig: TAKE 81 MG BY MOUTH ONCE DAILY. STARTING WITH POSITIVE TEST. Kiara Car RN [facility]10-21-2024 NoteHNO ID: [id number] Author: DARRYL ADKINS MD Service: ? Author Type: Physician Type: Progress Notes Filed: 02/16/2024 12:53 Note Text: Alon Schmitt is a 23 year old female who presents as a new patient for history of two miscarriages. HPI: Transfer from [place]. History of 2 miscarriages. With her first she had an emergent DANDC 6.5 weeks on November 20 2023. Second early miscarriage followed HCG quants, and this was conceived before first menses after DANDC. Took 8 months to conceive with first . Regular menstrual cycles q 28-32 days. Using OPK's +ovulation. Bleeding lasts 5 days. Requested workup through PCP and blood work in care everywhere. OB History No obstetric history on file. Fire Official History LMP: 02/01/2024, Having periods Age at Menarche: Age at First : Age at Menopause: Fire Official History Comments: Sexual Activity: Yes; Male Contraception: None PAST MEDICAL HISTORY Diagnosis Date Psychiatric disorder PAST SURGICAL HISTORY Procedure Laterality Date CHOLECYSTECTOMY HX HYSTEROSCOPY, DIAGNOSTIC (SEPARATE D and C for MAB TOOTH EXTRACTION FAMILY HISTORY Problem Relation Age of Onset Diabetes Mother Diabetes Father No Known Problems Brother No Known Problems Brother No Known Problems Maternal Grandmother Heart Maternal Grandfather Diabetes Paternal Grandmother No Known Problems Paternal Grandfather Social History Tobacco Use Smoking status: Never Smokeless tobacco: Never Vaping Use Vaping status: Never Used Substance Use Topics Alcohol use: Never Drug use: Never Current Outpatient Medications Medication Sig aspirin 81 mg cap Take 81 mg by mouth once daily. Starting with positive test. progesterone micronized (PROMETRIUM) 200 mg capsule Use 1 capsule vaginally daily at bedtime. Starting with positive test. amoxicillin (AMOXIL) 500 mg capsule Take 500 mg by mouth three times a day. (Patient not taking: Reported on 02/16/2024) FLUoxetine (PROZAC) 40 mg capsule Take 40 mg by mouth once daily. (Patient not taking: Reported on 02/16/2024) No current facility-administered medications for this visit. Allergies As of Date: 02/16/2024 (No Known Allergies) Fully Assessed 02/16/2024 REVIEW OF SYSTEMS Expanded ROS: N/A Allergies and current medication updated:Yes SENSITIVE EXAM: Sensitive exam not performed. EXAM: BP 128/80 Wt 280 lb 9.6 oz (127.3kg) LMP 02/01/2024 GENERAL: pleasant, female in no apparent distress HEENT: Normocephalic and atraumatic NECK: full range of motion DERMATOLOGY: Normal, without lesions, non-icteric, and non-hirsute BREAST: deferred CHEST: Normal inspiratory effort ABDOMEN: Deferred PELVIC: deferred BIMANUAL: deferred NEURO: exam grossly non-focal EXTREMITIES: normal ASSESSMENT AND PLAN: Assessment AND Plan History of miscarriage Orders: PELVIC US WHI; Future aspirin 81 mg cap; Take 81 mg by mouth once daily. Starting with positive test. progesterone micronized (PROMETRIUM) 200 mg capsule; Use 1 capsule vaginally daily at bedtime. Starting with positive test. Discussed possible etiologies for miscarriage. Blood work reviewed that was ordered by PCP. Pelvic US WHI ordered after discussion with patient. Sign records release to get records from [place]. Patient reports having recent annual exam. Discussed r/b/a baby ASA and vaginal progesterone suppository and she understands data is mixed. She would like rx's for these medications to start with positive test. Discussed reasons to call. She would like serial HCG levels and early pelvic US with next . Discussed limitations with pelvic ultrasound with early . Darryl Adkins, Medical Decision Making: Problems: Moderate: New problem with uncertain prognosis Data: Unique test result(s) reviewed: 3+ Unique test(s) ordered: 1 Risk: Moderate: Drug management Medical Decision Making [facility]: [facility] of Present illness Narrative* Darryl Adkins MD - 02/16/2024 9:31 AM EDT Alon Schmitt is a 23 year old female who presents as a new patient for history of two miscarriages. HPI: Transfer from [place]. History of 2 miscarriages. With her first she had an emergent D&C 6.5 weeks on November 20 2023. Second early miscarriage followed HCG quants, and this was conceived before first menses after D&C. Took 8 months to conceive with firstpregnancy. Regular menstrual cycles q 28-32 days. Using OPK's +ovulation. Bleeding lasts 5 days. Requested workup through PCP and blood work in care everywhere. OB History No obstetric history on file. Fire Official History LMP: 02/01/2024, Having periods Age at Menarche: Age at First : Age at Menopause: Fire Official History Comments: Sexual Activity: Yes; Male Contraception: None PAST MEDICAL HISTORY Diagnosis Date Psychiatric disorder PAST SURGICAL HISTORY Procedure Laterality Date CHOLECYSTECTOMY HX HYSTEROSCOPY, DIAGNOSTIC (SEPARATE D and C for MAB TOOTH EXTRACTION FAMILY HISTORY Problem Relation Age of Onset Diabetes Mother Diabetes Father No Known Problems Brother No Known Problems Brother No Known Problems Maternal Grandmother Heart Maternal Grandfather Diabetes Paternal Grandmother No Known Problems Paternal Grandfather Social History Tobacco Use Smoking status: Never Smokeless tobacco: Never Vaping Use Vaping status: Never Used Substance Use Topics Alcohol use: Never Drug use: Never Current Outpatient Medications Medication Sig aspirin 81 mg cap Take 81 mg by mouth once daily. Starting with positive test. progesterone micronized (PROMETRIUM) 200 mg capsule Use 1 capsule vaginally daily at bedtime. Starting with positive test. amoxicillin (AMOXIL) 500 mg capsule Take 500 mg by mouth three times a day. (Patient not taking: Reported on 02/16/2024) FLUoxetine (PROZAC) 40 mg capsule Take 40 mg by mouth once daily. (Patient not taking: Reported on 02/16/2024) No current facility-administered medications for this visit. Allergies As of Date: 02/16/2024 (No Known Allergies) Fully Assessed 02/16/2024 REVIEW OF SYSTEMS Expanded ROS: N/A Allergies and current medication updated:Yes SENSITIVE EXAM: Sensitive exam not performed. EXAM: BP 128/80 Wt 280 lb 9.6 oz (127.3kg) LMP 02/01/2024 GENERAL: pleasant, female in no apparent distress HEENT: Normocephalic and atraumatic NECK: full range of motion DERMATOLOGY: Normal, without lesions, non-icteric, and non-hirsute BREAST: deferred CHEST: Normal inspiratory effort ABDOMEN: Deferred PELVIC: deferred BIMANUAL: deferred NEURO: exam grossly non-focal EXTREMITIES: normal ASSESSMENT AND PLAN: Assessment & Plan History of miscarriage Orders: PELVIC US WHI; Future aspirin 81 mg cap; Take 81 mg by mouth once daily. Starting with positive test. progesterone micronized (PROMETRIUM) 200 mg capsule; Use 1 capsule vaginally daily at bedtime. Starting with positive test. Discussed possible etiologies for miscarriage. Blood work reviewed that was ordered by PCP. Pelvic US WHI ordered after discussion with patient. Sign records release to get records from [place]. Patient reports having recent annual exam. Discussed r/b/a baby ASA and vaginal progesterone suppository and she understands data is mixed. She would like rx's for these medications to start with positive test. Discussed reasons to call. She would like serial HCG levels and early pelvic USwith next . Discussed limitations with pelvic ultrasound with early . Darryl Adkins DO Medical Decision Making: Problems: Moderate: New problem with uncertain prognosis Data: Unique test result(s) reviewed: 3+ Unique test(s) ordered: 1 Risk: Moderate: Drug management Medical Decision Making Level: 4 - Moderate documented in this encounterL[facility] History of Present illness Narrative* Erin Singh APRN - MANAGER CASINO - 01/21/2024 1:20 PM EDT Images from the original note were not included. 01/21/2024 Alon Schmitt (: 2000) is a 23 y.o. female , Established patient, here for evaluation of the following chief complaint(s): Health Maintenance (HIV/HEP C screen- declines(thinks she's had done) /HPV- declines /Tdap- declines /Covid- not done/does not want /Flu- declines ), Recurrent Miscarriage (Patient states that 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 Cruz in [place], feels like she is getting therun around with answers. ), and Blood Work ASSESSMENT/PLAN: 1. History of multiple miscarriages - Protein S, total and free - Factor 5 leiden - LUPUS ANTICOAGULANT EVALUATION WITH REFLEX ([facility]) - Prothrombin gene mutation - TSH - T4, free - T3, free - CBC auto differential - Comprehensive metabolic panel - Protein C activity - Fibrinogen - Estrogens, total - Follicle stimulating hormone - Luteinizing hormone - Prolactin - Lipid panel - Hemoglobin A1c - Requested blood work ordered. Will notify of results. - Follow up with [facility] as directed. 2. Amenorrhea - Protein S, total and free - Factor 5 leiden - LUPUS ANTICOAGULANT EVALUATION WITH REFLEX ([facility]) - Prothrombin gene mutation - TSH - T4, free - T3, free - CBC auto differential - Comprehensive metabolic panel - Protein C activity - Fibrinogen - Estrogens, total - Follicle stimulating hormone - Luteinizing hormone - Prolactin - Lipid panel - Hemoglobin A1c - Requested blood work ordered. Will notify of results. - Follow up with [facility] as directed. 3. Morbid obesity with BMI of 45.0-49.9, adult (HCC) - TSH - T4, free - T3, free - CBC auto differential - Comprehensive metabolic panel - Estrogens, total - Follicle stimulating hormone - Luteinizing hormone - Prolactin - Will notify of blood work results. 4. Mild episode of recurrent major depressive disorder (HCC) - TSH - T4, free - T3, free - CBC auto differential - Comprehensive metabolic panel - Stable off of Prozac. 5. Anxiety - TSH - T4, free - T3, free - CBC auto differential - Comprehensive metabolic panel - Stable off of Prozac. 6. Screening for lipoid disorders - Lipid panel - Will notify of blood work results. 7. Screening for diabetes mellitus - Comprehensive metabolic panel - Hemoglobin A1c - Will notify of blood work results. 8. Encounter for screening for HIV - HIV-1 and HIV-2 Antigen-Antibody Screen - Will notify of blood work results. 9. Need for hepatitis C screening test - Hepatitis C antibody - Will notify of blood work results. 10. Influenza vaccine refused Follow up in about 1 year (around 01/20/2025) for annual physical. SUBJECTIVE/OBJECTIVE: ALECIA Chi presents today to discuss concerns regarding multiple miscarriages within the past 3 months. Had a miscarriage with a D&C on 11/20/23 and had another miscarriage on 12/31/23. Has followed up with Dr. Niru Cruz ([facility]) in [place] but feels like she is getting the run around and is not getting any answers. Will be following up with another [facility]. Has been attempting to conceive since last January- will be a year next month. Has not had any workup done outside of the ultrasound. Was wanting some workup done to look into why she is having difficulty conceiving and not losing the baby and felt like the provider was pushing back on getting this done. She has a listof blood tests she would like drawn today for further evaluation. Has been off of her Prozac for about 1 year and states she is doing well. Would like to remain off of medication. Denies suicidal ideations. Health Maintenance: Declines a flu vaccine. Would like screening for HIV and Hep C. Declines to be vaccinated for HPV. Declines a Tdap vaccination. Declines to be vaccinated for COVID-19. Pap: 04/05/22. Would like to have her cholesterol levels checked. Review of Systems Constitutional: Negative for chills and fever. Respiratory: Negative for chest tightness and shortness of breath. Cardiovascular: Negative for chest pain. Gastrointestinal: Negative for abdominal distention and abdominal pain. Genitourinary: Positive for menstrual problem. Negative for pelvic pain, vaginal bleeding, vaginal discharge and vaginal pain. Vitals: 01/21/24 1318 01/21/24 1357 BP: (!) 142/86 128/82 Pulse: 103 SpO2: 98% Weight: 278 lb 12.8 oz (126 kg) Height: 5' 3 (1.6 m) Body mass index is 49.39 kg/m . Patient's last menstrual period was 09/06/2023 (approximate). Last 3 LESLIE-7 Scores No data found in the last 10 encounters. Last 3 PHQ-2 Scores No data found in the last 10 encounters. Last 3 PHQ-9 Scores No data found in the last 10 encounters. Physical Exam Constitutional: General: She is not in acute distress. Appearance: She is obese. She is not ill-appearing or diaphoretic. Neck: Vascular: No carotid bruit. Cardiovascular: Rate and Rhythm: Normal rate and regular rhythm. Pulses: Normal pulses. Heart sounds: Normal heart sounds. No murmur heard. No friction rub. Pulmonary: Effort: Pulmonary effort is normal. Breath sounds: Normal breath sounds. No wheezing, rhonchi or rales. Abdominal: General: Abdomen is protuberant. Bowel sounds are normal. Palpations: Abdomen is soft. There is no mass. Tenderness: There is no abdominal tenderness. There is no guarding. Musculoskeletal: Cervical back: Neck supple. Lymphadenopathy: Cervical: No cervical adenopathy. Skin: General: Skin is warm and dry. Coloration: Skin is not pale. Findings: No erythema or rash. Neurological: Mental Status: She is alert and oriented to person, place, and time. Psychiatric: Mood and Affect: Mood normal. Behavior: Behavior normal. Thought Content: Thought content normal. Judgment: Judgment normal. An electronic signature was used to authenticate this note. CHARISMA Thornton CNP 01/21/2024 1:58 PM * Anne Marie Cassidy MA - 01/21/2024 1:20 PM EDT Patient verified by last name and . documented in this [facility]11-24-2023 History of Present illness Narrative* Nemo Mohr MA - 03/21/2023 9:40 AM EST Patient was verified by name and . * CHARISMA Thornton CNP - 03/21/2023 9:40 AM EST Images from the original note were not included. 03/21/2023 Alon Schmitt (: 2000) is a 22 y.o. female , Established patient, here for evaluation of the following chief complaint(s): ER Follow-up ([facility] ER visit 03/19/23, started amoxicillin) and Sore Throat ASSESSMENT/PLAN: 1. Bilateral acute serous otitis media, recurrence not specified - amoxicillin-clavulanate (Augmentin) 875-125 MG tablet; Take 1 tablet by mouth 2 times daily for 10 days., Starting Fri03/21/2023, Until Fri03/31/2023, Normal - rygzfwxw-exgzeycrj-xxwofrehfkoteg (Cortisporin) otic solution; Administer 3 drops into each ear in the morning and 3 drops at noon and 3 drops in the evening and 3 drops before bedtime., Starting Fri03/21/2023, Normal - Not improving. Will switch from Amoxicillin to Augmentin and have her administer ear drops as well. - Discussed signs and symptoms warranting immediate attention- verbalized understanding. 2. Pharyngitis, unspecified etiology - amoxicillin-clavulanate (Augmentin) 875-125 MG tablet; Take 1 tablet by mouth 2 times daily for 10 days., Starting Fri03/21/2023, Until Fri03/31/2023, Normal - methylPREDNISolone (Medrol Dospak) 4 MG tablets; Take as directed on package., Normal - Not improving. Will switch from Amoxicillin to Augmentin and give her a medrol-dose pack to assist with pain and swelling. - Discussed signs and symptoms warranting immediate attention- verbalized understanding. Follow up if symptoms worsen or fail to improve. SUBJECTIVE/OBJECTIVE: HPI Malini Chi presents today for an ER follow up on 03/19/23 due to a sore throat. Per the ER report, Patient states has had symptoms for the last few days. She states symptoms are accompanied by bilateral ear pain, and difficulty swallowing. She endorses chills at home. She states today her symptoms were worse with inability to swallow as a result of which she came to the department. Patient denies shortness of breath. She denies chest pain. She also denies any sick contacts. Was tested for strep, mono, Covid, and RSV while in the ER and all came back negative. She was started on Amoxicillin the day before going to the ER. Feels symptoms continue to get worse (ear and throat pain). Still has a sore throat with tonsil swelling. Has had fevers as high as 101.8 F but has not had any since being seen in the ER. Has been taking Tylenol and Advil for pain/fever. Today garland day 7 of symptoms. Review of Systems Constitutional: Positive for chills and fever. HENT: Positive for congestion, ear pain, rhinorrhea, sore throat and trouble swallowing. Negative for ear discharge. Respiratory: Positive for cough. Negative for chest tightness and shortness of breath. Cardiovascular: Negative for chest pain. Vitals: 03/21/23 0944 BP: 135/83 Pulse: 101 Temp: 36.8 C (98.3 F) TempSrc: Oral SpO2: 98% Weight: 268 lb (122 kg) Height: 5' 3 (1.6 m) Body mass index is 47.47 kg/m . Physical Exam Constitutional: General: She is not in acute distress. Appearance: She is ill-appearing. She is not toxic-appearing or diaphoretic. HENT: Head: Normocephalic and atraumatic. Right Ear: Swelling and tenderness present. No drainage. Tympanic membrane is erythematous and bulging. Tympanic membrane is not perforated. Left Ear: Swelling and tenderness present. No drainage. Tympanic membrane is erythematous and bulging. Tympanic membrane is not perforated. Nose: Nose normal. Mouth/Throat: Mouth: Mucous membranes are moist. Pharynx: Pharyngeal swelling, oropharyngeal exudate (right side) and posterior oropharyngeal erythema present. Tonsils: 3+ on the right. 2+ on the left. Cardiovascular: Rate and Rhythm: Normal rate and regular rhythm. Heart sounds: Normal heart sounds. No murmur heard. No friction rub. Pulmonary: Effort: Pulmonary effort is normal. Breath sounds: Normal breath sounds. No wheezing, rhonchi or rales. Musculoskeletal: Cervical back: Neck supple. Lymphadenopathy: Cervical: No cervical adenopathy. Skin: General: Skin is warm and dry. Coloration: Skin is not pale. Findings: No erythema or rash. Neurological: Mental Status: She is alert and oriented to person, place, and time. Psychiatric: Mood and Affect: Mood normal. Behavior: Behavior normal. Thought Content: Thought content normal. Judgment: Judgment normal. An electronic signature was used to authenticate this note. CHARISMA Thornton CNP 03/21/2023 10:03 AM documented in this [facility]11-24-2023 Telephone encounter Note* Telephone Encounter - Joann Chicas RN - 03/21/2023 8:01 AM EST S: Patient's spoke with [facility] nurse regarding sore throat, swollen tonsils. B: Onset of symptoms/concern: seen in the ER on Friday, states pain is worse. A: states she has sore throat, rates pain 9/10 on pain scale. States she can swallow, but it is very painful, states she is drinking plenty of fluids. Patient states she has mild difficulty breathing at this time. Denies fever. States testing done in the ER was all negative. R: Patient's understands care advice for sore throat. COVID test negative in the ER. Officevisit scheduled today at 9:40AM. The location, date, provider, time of appointment were reviewed and insurance verified with the , he verbalizes understanding. Advised to bring photo ID and Insurance card. No further needs at this time. Instructed to call back with new or worsening symptoms,advised to go to the ER if difficulty in breathing worsens or she cannot swallow and is spitting out her saliva. Reason for Disposition Difficulty breathing (per caller) but not severe Protocols used: Sore [id number] [id number] Miscellaneous Notes* Telephone Encounter - Joann Chicas RN - 03/21/2023 8:01 AM EST S: Patient's spoke with [facility] nurse regarding sore throat, swollen tonsils. B: Onset of symptoms/concern: seen in the ER on Friday, states pain is worse. A: states she has sore throat, rates pain 9/10 on pain scale. States she can swallow, but it is very painful, states she is drinking plenty of fluids. Patient states she has mild difficulty breathing at this time. Denies fever. States testing done in the ER was all negative. R: Patient's understands care advice for sore throat. COVID test negative in the ER. Officevisit scheduled today at 9:40AM. The location, date, provider, time of appointment were reviewed and insurance verified with the , he verbalizes understanding. Advised to bring photo ID and Insurance card. No further needs at this time. Instructed to call back with new or worsening symptoms,advised to go to the ER if difficulty in breathing worsens or she cannot swallow and is spitting out her saliva. Reason for Disposition Difficulty breathing (per caller) but not severe Protocols used: Sore [id number] documented in this [facility]11-20-2023 Evaluation + Plan note* Assessment & Plan Note - Favian Mariee MD - 03/17/2023 12:03 PM EST Associated Problem(s): Sore throat Minimally enlarged tonsil on the right side no exudates no erythema. No lymphadenopathy. [facility] [id number] Miscellaneous Notes* Assessment & Plan Note - Favian Mariee MD - 03/17/2023 12:03 PM ESTAssociated Problem(s): Sore throat Minimally enlarged tonsil on the right side no exudates no erythema. No lymphadenopathy. * Assessment & Plan Note - Favian Mariee MD - 03/17/2023 12:02 PM EST Associated Problem(s): Acute bacterial conjunctivitis of right eye 2 drops in both eyes 4 times a day for up to 7 days. Rx sent documented in this [facility]11-20-2023 Evaluation + Plan note* Assessment & Plan Note - Favian Mariee MD - 03/17/2023 12:02 PM EST Associated Problem(s): Acute bacterial conjunctivitis of right eye 2 drops in both eyes 4 times a day for up to 7 days. Rx sent [facility] [id number] History of Present illness Narrative* Jasmin Soni MA - 03/17/2023 11:45 AM EST Patient verified by last name and date of . * Favian Mariee MD - 03/17/2023 11:45 AM EST Images from the original note were not included. 03/17/2023 Alon Schmitt (: 2000) is a 22 y.o. female , Established patient, here for evaluation of the following chief complaint(s): Eye Problem (Right-Drainage and swelling), Earache (Right ), and Sore Throat (Started last Friday morning with eye hurting) ASSESSMENT/PLAN: 1. Acute bacterial conjunctivitis of right eye Assessment & Plan: 2 drops in both eyes 4 times a day for up to 7 days. Rx sent 2. Sore throat Assessment & Plan: Minimally enlarged tonsil on the right side no exudates no erythema. No lymphadenopathy. Follow up if symptoms worsen or fail to improve. SUBJECTIVE/OBJECTIVE: HPI -Alon comes in today complaining that her right is itchy painful red swollen has drainage andthis morning it was matted shut. She also has a sore throat and her right ear hurts. Review of Systems Constitutional: Negative for chills and fever. HENT: Positive for ear pain and sore throat. Negative for rhinorrhea and sinus pressure. Eyes: Positive for pain, discharge, redness, itching and visual disturbance. Vitals: 03/17/23 1147 BP: 136/81 Pulse: 100 Temp: 36.9 C (98.4 F) SpO2: 95% Weight: 269 lb 3.2 oz (122 kg) Height: 5' 4 (1.626 m) Physical Exam Vitals and nursing note reviewed. Constitutional: General: She is not in acute distress. Appearance: Normal appearance. She is obese. HENT: Head: Normocephalic and atraumatic. Right Ear: Tympanic membrane, ear canal and external ear normal. Left Ear: Tympanic membrane, ear canal and external ear normal. Mouth/Throat: Mouth: Mucous membranes are moist. Pharynx: Oropharynx is clear. Eyes: General: Right eye: Discharge present. Left eye: No discharge. Extraocular Movements: Extraocular movements intact. Conjunctiva/sclera: Right eye: Right conjunctiva is injected. Left eye: Left conjunctiva is not injected. Pupils: Pupils are equal, round, and reactive to light. Musculoskeletal: Cervical back: Neck supple. Lymphadenopathy: Cervical: No cervical adenopathy. Neurological: Mental Status: She is alert. An electronic signature was used to authenticate this note. Favian Mariee MD 03/17/2023 12:03 PM documented in this encounterSDelaware County [id number] Telephone encounter Note* Telephone Encounter - Deloris Louise RN - 03/17/2023 8:06 AM EST S: Patient spoke with [facility] nurse regarding eye pain B: Onset of symptoms/concern 03/14/23 A: Pt endersose right pink eye, ears hurt, sore throat Denies - fever, shortness of breath, cough, No exposure to COVID or recent vaccine. R: Scheduled same day 03/17/23 at 11:[address] Mariee. Home care advise given for eye pain. Patient understands care advice. No further needs at this time. Patient instructed to call back with new or worsening symptoms. Reason for Disposition Eyelids are very swollen (shut or almost) Protocols used: Eye - Pus or [id number] [facility] [id number] Miscellaneous Notes* Telephone Encounter - Deloris Louise RN - 03/17/2023 8:06 AM EST S: Patient spoke with [facility] nurse regarding eye pain B: Onset of symptoms/concern 03/14/23 A: Pt endersose right pink eye, ears hurt, sore throat Denies - fever, shortness of breath, cough, No exposure to COVID or recent vaccine. R: Scheduled same day 03/17/23 at 11:[address] Mariee. Home care advise given for eye pain. Patient understands care advice. No further needs at this time. Patient instructed to call back with new or worsening symptoms. Reason for Disposition Eyelids are very swollen (shut or almost) Protocols used: Eye - Pus or [id number] documented in this [facility]05-12-2023 History of Present illness Narrative* Erin Singh APRN - [facility] - 09/06/2022 7:00 AM EDT Images from the original note were not included. 09/06/2022 Alon Brower (: 2000) is a 21 y.o. female , Established patient, here for evaluation of the following chief complaint(s): Urinary Frequency ASSESSMENT/PLAN: 1. Urinary frequency - POCT Urinalysis dipstick - Urine culture (clean catch) - nitrofurantoin, macrocrystal-monohydrate, (Macrobid) 100 MG capsule; Take 1 capsule (100 mg) by mouth 2 times daily for 7 days. Take with food., Starting Fri09/06/2022, Until Fri09/13/2022, Normal - UA positive for leukocytes. Will start on Nitrofurantoin and send urine for culture. 2. Dysuria - POCT Urinalysis dipstick - Urine culture (clean catch) - nitrofurantoin, macrocrystal-monohydrate, (Macrobid) 100 MG capsule; Take 1 capsule (100 mg) by mouth 2 times daily for 7 days. Take with food., Starting Fri09/06/2022, Until Fri09/13/2022, Normal 3. Leukocytes in urine - Urine culture (clean catch) - nitrofurantoin, macrocrystal-monohydrate, (Macrobid) 100 MG capsule; Take 1 capsule (100 mg) by mouth 2 times daily for 7 days. Take with food., Starting Fri09/06/2022, Until Fri09/13/2022, Normal Follow up in 1 month (on 10/07/2022) for Next scheduled follow-up. SUBJECTIVE/OBJECTIVE: HPI - Alon presents today with concerns of urinary frequency that started about 6 days ago. Has also noticed dysuria and pink tinged urine when wiping. Denies nausea, vomiting, flank pain, fevers, or constipation. Has taken AZO OTC which has not been very helpful- last dose was about 4 days ago. Is not currently on her menstrual cycle. See ROS for additional information. Review of Systems Constitutional: Negative for chills and fever. Respiratory: Negative for chest tightness and shortness of breath. Cardiovascular: Negative for chest pain. Gastrointestinal: Negative for abdominal distention, abdominal pain, constipation, nausea and vomiting. Genitourinary: Positive for dysuria, frequency and hematuria. Negative for difficulty urinating andflank pain. Vitals: 09/06/22 0700 BP: 126/86 BP Location: Left arm Pulse: 96 Temp: 36.6 C (97.8 F) TempSrc: Temporal SpO2: 98% Weight: 263 lb (119 kg) Height: 5' 4 (1.626 m) Physical Exam Constitutional: General: She is not in acute distress. Appearance: She is not ill-appearing or diaphoretic. Cardiovascular: Rate and Rhythm: Normal rate and regular rhythm. Heart sounds: Normal heart sounds. Pulmonary: Effort: Pulmonary effort is normal. Breath sounds: Normal breath sounds. Abdominal: General: Bowel sounds are normal. Palpations: Abdomen is soft. There is no mass. Tenderness: There is no abdominal tenderness. There is no right CVA tenderness or left CVA tenderness. Skin: General: Skin is warm and dry. Coloration: Skin is not pale. Findings: No erythema. Neurological: Mental Status: She is alert and oriented to person, place, and time. Psychiatric: Mood and Affect: Mood normal. Behavior: Behavior normal. Thought Content: Thought content normal. Judgment: Judgment normal. An electronic signature was used to authenticate this note. CHARISMA Thornton CNP 09/06/2022 7:17 AM documented in this [facility]01-04-2023 Telephone encounter Note* Telephone Encounter - Mary Ellen MckinneyJean Jimenes - 05/01/2022 11:55 AM EST Message released to patient as written. Patient's further questions if applicable: Were all questions from office addressed or relayed to the patient from encounter: Yes Pt returned monitor on 04/27/22 [facility] [id number] Miscellaneous Notes* Telephone Encounter - Mary Ellen HankJean Jimenes - 05/01/2022 11:55 AM EST Message released to patient as written. Patient's further questions if applicable: Were all questions from office addressed or relayed to the patient from encounter: Yes Pt returned monitor on 04/27/22 * Telephone Encounter - CHARISMA Thornton CNP - 05/01/2022 11:41 AM EST Thank you for all of your help with this. * Telephone Encounter - Mary Ha - 05/01/2022 11:28 AM EST Was finally able to reach someone they have prepaid UPS labels, she just has to put it back in the box and drop it off to be sent back. Attempted to contact patient with information and left message. * Telephone Encounter - CHARISMA Thornton CNP - 05/01/2022 7:23 AM EST Any updates? * Telephone Encounter - Mary Ha - 04/26/2022 10:01 AM EST Left a second detailed message for the [place] holter monitor lab with return call information and patient information and question. * Telephone Encounter - CHARISMA Thornton CNP - 04/26/2022 9:26 AM EST Have we heard anything back? * Telephone Encounter - Mary Ha - 04/25/2022 9:21 AM EST Left message for Holter lab to see what she is supposed to do. Will call patient once we have information * Telephone Encounter - CHARISMA Thornton CNP - 04/24/2022 5:13 PM EST Alon returned my call. States she does not recall any symptoms at the time of the recording and may have been driving when it happened, but she is not sure. States she has been feeling well and hasnot initiated a response on the monitor in awhile. Is due to have the monitor returned. Can we verify how she is supposed to return the monitor please? Picked this up from [facility] what she was given has a return address of [place] and she wants to verify how she is supposed todo this. Can we call her back with instructions? Thank you. * Telephone Encounter - CHARISMA Thornton CNP - 04/24/2022 4:59 PM EST Got a hold of her father, who is listed as an emergency contact. States he saw Alon yesterday andstates she was feeling well at the time. Will also reach out to Alon and have her give us a call back. If she returns the call I am wanting to know if she remembers what she was doing 04/19/22 around 7:45 PM and if she remembers experiencing any symptoms. Was she exercising or doing anything exertional? Any activities where she could have been doing something repetitively and bumping her chest (brushing her teeth, etc). * Telephone Encounter - CHARISMA Thornton CNP - 04/24/2022 4:46 PM EST Received fax from cardiac event monitor with an episode of SVT that lasted longer than 60 seconds with a heart rate up to 179. Event happened on 04/19/22 at 7:43 PM. Attempted to contact patient to see how she was feeling with no answer. LM to return my call. I do not see anywhere that a provider was paged with this incident. Should have notified customer care consultant provider. We are now 5 days out from episode. documented in this encounterSDelaware County [id number] Telephone encounter Note* Telephone Encounter - CHARISMA Thornton CNP - 05/01/2022 11:41 AM EST Thank you for all of your help with this. [facility] [id number] Telephone encounter Note* Telephone Encounter - Mary Ha - 05/01/2022 11:28 AM EST Was finally able to reach someone they have prepaid UPS labels, she just has to put it back in the box and drop it off to be sent back. Attempted to contact patient with information and left message. [facility] [id number] Telephone encounter Note* Telephone Encounter - CHARISMA Thornton CNP - 05/01/2022 7:23 AM EST Any updates? [facility] [id number] Telephone encounter Note* Telephone Encounter - Mary Ha - 04/26/2022 10:01 AM EST Left a second detailed message for the [place] holter monitor lab with return call information and patient information and question. [facility] [id number] Telephone encounter Note* Telephone Encounter - CHARISMA Thornton CNP - 04/26/2022 9:26 AM EST Have we heard anything back? [place] [id number] Telephone encounter Note* Telephone Encounter - Mary Ha - 04/25/2022 9:21 AM EST Left message for Holter lab to see what she is supposed to do. Will call patient once we have information [facility] [id number] Telephone encounter Note* Telephone Encounter - CHARISMA Thornton CNP - 04/24/2022 5:13 PM EST Alon returned my call. States she does not recall any symptoms at the time of the recording and may have been driving when it happened, but she is not sure. States she has been feeling well and hasnot initiated a response on the monitor in awhile. Is due to have the monitor returned. Can we verify how she is supposed to return the monitor please? Picked this up from [facility] what she was given has a return address of [place] and she wants to verify how she is supposed todo this. Can we call her back with instructions? Thank you. [place] [id number] Telephone encounter Note* Telephone Encounter - CHARISMA Thornton CNP - 04/24/2022 4:59 PM EST Got a hold of her father, who is listed as an emergency contact. States he saw Alon yesterday andstates she was feeling well at the time. Will also reach out to Alon and have her give us a call back. If she returns the call I am wanting to know if she remembers what she was doing 04/19/22 around 7:45 PM and if she remembers experiencing any symptoms. Was she exercising or doing anything exertional? Any activities where she could have been doing something repetitively and bumping her chest (brushing her teeth, etc). [facility] [id number] Telephone encounter Note* Telephone Encounter - CHARISMA Thornton CNP - 04/24/2022 4:46 PM EST Received fax from cardiac event monitor with an episode of SVT that lasted longer than 60 seconds with a heart rate up to 179. Event happened on 04/19/22 at 7:43 PM. Attempted to contact patient to see how she was feeling with no answer. LM to return my call. I do not see anywhere that a provider was paged with this incident. Should have notified customer care consultant provider. We are now 5 days out from episode. [facility] note* Diagnosis Urinary frequency- Primary Dysuria Leukocytes in urine Other nonspecific finding on examination of urine [facility] Diagnosis Acute bacterial conjunctivitis of right eye- Primary Sore throat Acute pharyngitis [facility]* Diagnosis Bilateral acute serous otitis media, recurrence not specified- Primary Pharyngitis, unspecified etiology documented in this encounter [facility]* Diagnosis History of multiple miscarriages- Primary Amenorrhea Absence of menstruation Morbid obesity with BMI of 45.0-49.9, adult (HCC) Mild episode of recurrent major depressive disorder (HCC) Anxiety Anxiety state, unspecified Screening for lipoid disorders Screening for diabetes mellitus Encounter for screening for HIV Need for hepatitis C screening test Special screening examination for other specified viral diseases Influenza vaccine refused [facility]* Diagnosis History of miscarriage- Primary Personal history of other genital system and obstetric disorders [facility]* Diagnosis History of miscarriage Personal history of other genital system and obstetric disorders [facility]* Diagnosis Encounter for test, result positive- Primary examination or test, positive result [facility]* Diagnosis Early stage of - Primary state, incidental History of miscarriage Personal history of other genital system and obstetric disorders [facility]* Diagnosis History of miscarriage Personal history of other genital system and obstetric disorders [facility]* Diagnosis 7 weeks gestation of - Primary state, incidental Encounter for care in first trimester of first Encounter for supervision of high risk in first trimester, antepartum Obesity affecting in first trimester, unspecified obesity type Currently in first trimester with unknown gestational age Anxiety Anxiety state, unspecified History of depression Personal history of other mental disorder [facility]* Diagnosis Urinary frequency- Primary Urgency of urination [facility]* Diagnosis Confirm cardiac activity using ultrasound- Primary Encounter for routine screening for malformation using ultrasonics 11 weeks gestation of state, incidental [facility]* Diagnosis Supervision of high risk in first trimester- Primary Unspecified high-risk 12 weeks gestation of state, incidental Obesity affecting in first trimester, unspecified obesity type [facility]* Diagnosis Supervision of high risk in second trimester- Primary Unspecified high-risk 16 weeks gestation of state, incidental Obesity affecting in second trimester, unspecified obesity type [facility]* Diagnosis Single umbilical artery affecting management of mother, antepartum, single gestation- Primary 20 weeks gestation of state, incidental Supervision of high risk in second trimester Unspecified high-risk Obesity affecting in second trimester, unspecified obesity type [facility]* Diagnosis Encounter for anatomic survey- Primary Single umbilical artery, maternal, antepartum Other umbilical cord complications during labor and delivery, antepartum Obesity affecting in second trimester, unspecified obesity type 20 weeks gestation of state, incidental Single umbilical artery affecting management of mother, antepartum, single gestation [facility]* Diagnosis abnormality affecting management of mother, single or unspecified fetus- Primary documented in this [facility]* Diagnosis Supervision of high risk in second trimester ([facility])- Primary Unspecified high-risk Obesity affecting in second trimester, unspecified obesity type (HCC) Single umbilical artery affecting management of mother, antepartum, single gestation (HCC) 25 weeks gestation of ([facility]) state, incidental Screening for diabetes mellitus documented in this encounter [facility]* Diagnosis Encounter for follow-up ultrasound of anatomy ([facility])- Primary Single umbilical artery, maternal, antepartum (HCC) Other umbilical cord complications during labor and delivery, antepartum Abnormal ultrasound Abnormal findings on screening 25 weeks gestation of ([facility]) state, incidental [facility]* Diagnosis Testing of female for genetic disease carrier status- Primary Single umbilical artery, maternal, antepartum (HCC) Other umbilical cord complications during labor and delivery, antepartum Abnormal ultrasound Abnormal findings on screening [facility]* Diagnosis Supervision of high risk in second trimester ([facility])- Primary Unspecified high-risk Obesity affecting in second trimester, unspecified obesity type (HCC) Single umbilical artery affecting management of mother, antepartum, single gestation ([facility]) Screening for diabetes mellitus 26 weeks gestation of ([facility]) state, incidental Elevated blood pressure reading without diagnosis of hypertension abnormality affecting management of mother, single or unspecified fetus ([facility]) [facility]* Diagnosis Abdominal pain affecting ([facility]) 27 weeks gestation of ([facility]) state, incidental abnormality affecting management of mother, single or unspecified fetus ([facility])- Primary documented [facility]* Diagnosis Penile hypospadias- Primary Hypospadias Abnormal ultrasound Abnormal findings on screening Single umbilical artery, maternal, antepartum ([facility]) Other umbilical cord complications during labor and delivery, antepartum Abdominal pain affecting ([facility]) 27 weeks gestation of ([facility]) state, incidental documented in this [facility]* Diagnosis Abdominal pain affecting ([facility]) 27 weeks gestation of ([facility]) state, incidental Obesity during in third trimester ([facility])- Primary Single umbilical artery affecting management of mother, antepartum, single gestation ([facility]) Screening for diabetes mellitus Supervision of high risk in third trimester (HCC) Unspecified high-risk 29 weeks gestation of (HCC) state, incidental documented in this encounter [facility] note* Diagnosis Abdominal pain affecting (HCC) 27 weeks gestation of (HCC) state, incidental Obesity during in third trimester (HCC)- Primary Encounter for ultrasound to check growth (HCC)- Primary Encounter for routine screening for malformation using ultrasonics Obesity during in third trimester (HCC) 29 weeks gestation of (HCC) state, incidental Suspected anomaly, antepartum, single or unspecified fetus (HCC) documented in this encounter [facility] note* Diagnosis Abdominal pain affecting (HCC) 27 weeks gestation of (HCC) state, incidental Encounter for ultrasound to check growth ([facility])- Primary Encounter for routine screening for malformation using ultrasonics Obesity during in third trimester (HCC) 29 weeks gestation of (HCC) state, incidental Suspected anomaly, antepartum, single or unspecified fetus (HCC) documented in this encounter [facility] note* Diagnosis Abdominal pain affecting (HCC) 27 weeks gestation of (HCC) state, incidental Supervision of high risk in third trimester ([facility])- Primary Unspecified high-risk Obesity during in third trimester (HCC) Single umbilical artery affecting management of mother, antepartum, single gestation (HCC) 31 weeks gestation of (HCC) state, incidental documented in this encounter [facility] noteNo assessment information availableWLakeHealth [facility] Work Phone: Evaluation note* Diagnosis Abdominal pain affecting (HCC) 27 weeks gestation of (HCC) state, incidental Supervision of high risk in third trimester (HCC)- Primary Unspecified high-risk Chronic hypertension complicating or reason for care during childbirth (HCC) Benign essential hypertension complicating , childbirth, and the puerperium, unspecified as to episode of care Obesity during in third trimester (HCC) Single umbilical artery affecting management of mother, antepartum, single gestation (HCC) 32 weeks gestation of (HCC) state, incidental Encounter for ultrasound to check growth ([facility])- Primary Encounter for routine screening for malformation using ultrasonics Single umbilical artery affecting management of mother, antepartum, single gestation (HCC) 33 weeks gestation of (HCC) state, incidental [facility]* Diagnosis Abdominal pain affecting (HCC) 27 weeks gestation of (HCC) state, incidental Supervision of high risk in third trimester (HCC)- Primary Unspecified high-risk Chronic hypertension complicating or reason for care during childbirth (HCC) Benign essential hypertension complicating , childbirth, and the puerperium, unspecified as to episode of care Obesity during in third trimester ([facility]) Single umbilical artery affecting management of mother, antepartum, single gestation (HCC) 32 weeks gestation of ([facility]) state, incidental Supervision of high risk in third trimester ([facility])- Primary Unspecified high-risk Chronic hypertension complicating or reason for care during childbirth (HCC) Benign essential hypertension complicating , childbirth, and the puerperium, unspecified as to episode of care Obesity during in third trimester ([facility]) Single umbilical artery affecting management of mother, antepartum, single gestation (HCC) 33 weeks gestation of ([facility]) state, incidental [facility] Diagnosis Abdominal pain affecting (HCC) 27 weeks gestation of ([facility]) state, incidental Supervision of high risk in third trimester ([facility])- Primary Unspecified high-risk Chronic hypertension complicating or reason for care during childbirth (HCC) Benign essential hypertension complicating , childbirth, and the puerperium, unspecified as to episode of care Obesity during in third trimester ([facility]) Single umbilical artery affecting management of mother, antepartum, single gestation (HCC) 32 weeks gestation of ([facility]) state, incidental Supervision of high risk in third trimester ([facility])- Primary Unspecified high-risk Chronic hypertension complicating or reason for care during childbirth (HCC) Benign essential hypertension complicating , childbirth, and the puerperium, unspecified as to episode of care Obesity during in third trimester ([facility]) Single umbilical artery affecting management of mother, antepartum, single gestation (HCC) 34 weeks gestation of ([facility]) state, incidental [facility] Diagnosis Abdominal pain affecting (HCC) 27 weeks gestation of ([facility]) state, incidental Supervision of high risk in third trimester ([facility])- Primary Unspecified high-risk Chronic hypertension complicating or reason for care during childbirth (HCC) Benign essential hypertension complicating , childbirth, and the puerperium, unspecified as to episode of care Obesity during in third trimester (HCC) Single umbilical artery affecting management of mother, antepartum, single gestation (HCC) 32 weeks gestation of (HCC) state, incidental Supervision of high risk in third trimester ([facility])- Primary Unspecified high-risk Chronic hypertension affecting (HCC) Obesity during in third trimester (HCC) Single umbilical artery affecting management of mother, antepartum, single gestation (HCC) 35 weeks gestation of (HCC) state, incidental [facility] Diagnosis Abdominal pain affecting ([facility]) 27 weeks gestation of ([facility]) state, incidental Supervision of high risk in third trimester ([facility])- Primary Unspecified high-risk Chronic hypertension complicating or reason for care during childbirth (HCC) Benign essential hypertension complicating , childbirth, and the puerperium, unspecified as to episode of care Obesity during in third trimester ([facility]) Single umbilical artery affecting management of mother, antepartum, single gestation (HCC) 32 weeks gestation of (HCC) state, incidental Single umbilical artery affecting management of mother, antepartum, single gestation (HCC) [facility] Diagnosis Abdominal pain affecting (HCC) 27 weeks gestation of ([facility]) state, incidental Supervision of high risk in third trimester ([facility])- Primary Unspecified high-risk Chronic hypertension complicating or reason for care during childbirth (HCC) Benign essential hypertension complicating , childbirth, and the puerperium, unspecified as to episode of care Obesity during in third trimester (HCC) Single umbilical artery affecting management of mother, antepartum, single gestation (HCC) 32 weeks gestation of (HCC) state, incidental Supervision of high risk in third trimester ([facility])- Primary Unspecified high-risk 33 weeks gestation of ([facility]) state, incidental Chronic hypertension complicating or reason for care during childbirth (HCC) Benign essential hypertension complicating , childbirth, and the puerperium, unspecified as to episode of care Obesity during in third trimester ([facility]) Single umbilical artery affecting management of mother, antepartum, single gestation (HCC) [facility] Diagnosis Abdominal pain affecting (HCC) 27 weeks gestation of (HCC) state, incidental Supervision of high risk in third trimester (HCC)- Primary Unspecified high-risk Chronic hypertension complicating or reason for care during childbirth (HCC) Benign essential hypertension complicating , childbirth, and the puerperium, unspecified as to episode of care Obesity during in third trimester (HCC) Single umbilical artery affecting management of mother, antepartum, single gestation (HCC) 32 weeks gestation of (HCC) state, incidental 36 weeks gestation of (HCC)- Primary state, incidental Supervision of high risk in third trimester (HCC) Unspecified high-risk Chronic hypertension affecting (HCC) Obesity during in third trimester (HCC) Single umbilical artery affecting management of mother, antepartum, single gestation (HCC) * Assessment & Plan Note - Gita Nation MD - 10/11/2024 10:56 AM EDT Associated Problem(s): Single umbilical artery affecting management of mother, antepartum, single gestation (HCC) Orders: URINE OB DIP B/O PROTEIN / CREATININE RATIO; Future COMPLETE BLOOD COUNT; Future COMPREHENSIVE METABOLIC PANEL; Future documented in this encounter [facility] note* Diagnosis Abdominal pain affecting (HCC) 27 weeks gestation of (HCC) state, incidental Supervision of high risk in third trimester (HCC)- Primary Unspecified high-risk Chronic hypertension complicating or reason for care during childbirth (HCC) Benign essential hypertension complicating , childbirth, and the puerperium, unspecified as to episode of care Obesity during in third trimester (HCC) Single umbilical artery affecting management of mother, antepartum, single gestation (HCC) 32 weeks gestation of (HCC) state, incidental 36 weeks gestation of (HCC)- Primary state, incidental Supervision of high risk in third trimester (HCC) Unspecified high-risk Chronic hypertension affecting (HCC) Obesity during in third trimester (HCC) Single umbilical artery affecting management of mother, antepartum, single gestation (HCC) Obesity affecting in second trimester, unspecified obesity type (HCC)- Primary Single umbilical artery affecting management of mother, antepartum, single gestation (HCC) [facility]* Diagnosis Abdominal pain affecting (HCC) 27 weeks gestation of (HCC) state, incidental Supervision of high risk in third trimester (HCC)- Primary Unspecified high-risk Chronic hypertension complicating or reason for care during childbirth (HCC) Benign essential hypertension complicating , childbirth, and the puerperium, unspecified as to episode of care Obesity during in third trimester (HCC) Single umbilical artery affecting management of mother, antepartum, single gestation (HCC) 32 weeks gestation of (HCC) state, incidental 36 weeks gestation of ([facility])- Primary state, incidental Supervision of high risk in third trimester (HCC) Unspecified high-risk Chronic hypertension affecting (HCC) Obesity during in third trimester (HCC) Single umbilical artery affecting management of mother, antepartum, single gestation (HCC) Supervision of high risk in third trimester (HCC)- Primary Unspecified high-risk Chronic hypertension affecting (HCC) Obesity during in third trimester (HCC) Single umbilical artery affecting management of mother, antepartum, single gestation (HCC) 37 weeks gestation of (HCC) state, incidental documented in this encounter [facility] for referral (narrative)* Diagnostic Procedure Only (Routine) - Authorized Specialty Diagnoses / Procedures Referred By Cherrie camacho Referred To Contact [facility] Diagnoses History of miscarriage Procedures PELVIC US WHI US PELVIC NONOBSTETRIC REAL-TIME IMAGE COMPLETE Darryl Adkins MD [address] [place] [address] [address] Referral ID Status Reason Start Date Expiration Date Visits Requested Visits Authorized [id number] Authorized Auto-Generat ed Referral 02/15/2025 1 1 [facility] for referral (narrative)* Diagnostic Procedure Only (Routine) - Authorized Specialty Diagnoses / Procedures Referred By Cherrie camacho Referred To Contact [facility] Diagnoses Encounter for care in first trimester of first Procedures NUCHAL TRANSLUCENCY WHI US NUCHAL TRANSLUCENCY 1ST GESTATION Plotts, Deb, CONSTRUCTION RECRUITER.[facility] [address] [place] [address] [address] Referral ID Status Reason Start Date Expiration Date Visits Requested Visits Authorized [id number] Authorized Auto-Generat ed Referral 03/22/2025 1 1 [facility] for referral (narrative)* Diagnostic Procedure Only (Routine) - Authorized Specialty Diagnoses / Procedures Referred By Contac t Referred To Contact [facility] Diagnoses 12 weeks gestation of Obesity affecting in first trimester, unspecified obesity type Supervision of high risk in first trimester Procedures OBSTETRIC ULTRASOUND WHI US PREG UTERUS AFTER 1ST TRIMEST 1 GESTATION Ankita Carrillo MD [address] [place] [address] [address] Referral ID Status Reason Start Date Expiration Date Visits Requested Visits Authorized [id number] Authorized Auto-Generat ed Referral 04/29/2024 04/29/2025 1 1 [facility] for referral (narrative)No reason for referral information [facility] Work Phone: Summary Purpose Family History No Family History Records Found Relationship Condition Age at Onset Recorded Date/T lucie mother Diabetes mellitus 35 father Diabetes mellitus 40 grandfather Cardiac disease Unknown grandmother Diabetes mellitus Unknown Advance Directives No Advanced Directives Records FoundDocuments on File Type Date Recorded 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 * Attachments The following attachments cannot be sent through Care Everywhere. * Nausea and Vomiting (Burundian) * Diarrhea (Burundian) documented in this encounter Assessments Diagnosis Nausea vomiting and diarrhea- Primary Nausea with vomiting Chief Complaint and Reason for Visit Chief Complaint Admit Date R/O PRE E September 13, 2024 5:58p m Chief Complaint Admit Date R/O PRE E September 13, 2024 5:58p m R/O PRE-ECLAMPSIA October 07, 2024 11:4 0am Reason for Visit Admit Date 32 weeks gestation of August 5:58pm Elevated blood pressure affe cting in third trimester, antepartum September 13, 2024 5:58pm Additional Source Comments INFORMATION SOURCE (unrecogn ized section and content) DATE CREATED AUTHOR 03/01/2019 [employer] DATE CREATED AUTHOR AUTHOR'S ORGANIZ ATION 05/25/2024 [facility] DATE CREATED AUTHOR AUTHOR'S ORGANIZ ATION 08/16/2024 [facility] DATE CREATED AUTHOR AUTHOR'S ORGANIZ ATION 10/15/2024 [facility] DATE CREATED AUTHOR AUTHOR'S ORGANIZ ATION 10/19/2024 [facility] Reason for Visit (unrecogniz ed section and content) Reason Comments Emesis Nausea Diarrhea Reason Comments Urinary Frequency Reason Onset Date Comments Eye Pain 03/17/2023 Reason Comments Eye Problem Right-Drainage and s welling Earache Right Sore Throat Started last Friday morning with eye hurting Reason Comments ER Follow-up [facility] ER visit 03/19/23, started amoxicillin Sore Throat Reason Onset Date Comments Sore Throat 03/21/2023 ER Follow-up 03/21/2023 Reason Comments Health Maintenance HIV/HEP C screen- de clines(thinks she's had done) HPV- declines Tdap- declines Covid- not done/does not want Flu- declines Recurrent Miscarriage Patient states isidoro t 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 Cruz in [place], feels like she is getting the run around with answers. Blood Work Reason Comments New Patient Preconception counse ling Reason Comments Med Change Request Reason Comments Orders Reason Comments Results Appointment Reason Comments Results Reason Comments ER F/U Reason Comments Initial OB Visit Reason Onset Date Comments Results 04/24/2022 Cardiac Event Mo nitor Reason Comments US Specialty Diagnoses / Procedures Referred By Cherrie t Referred To Contact [facility] Diagnoses Encounter for care in first trimester of first Procedures NUCHAL TRANSLUCENCY WHI US NUCHAL TRANSLUCENCY 1ST GESTATION Plotts, Deb, CONSTRUCTION RECRUITER.[facility] [address] [place] [address] [address] Referral ID Status Reason Start Date Expiration Date V isits Requested Visits Authorized [id number] Closed Auto-Generate d Referral 03/22/2024 03/22/2025 1 1 Reason Onset Date Comments Care 04/29/2024 Reason Onset Date Comments Care 05/24/2024 Reason Onset Date Comments Care 06/24/2024 Reason Comments US Specialty Diagnoses / Procedures Referred By Contac t Referred To Contact [facility] Diagnoses 12 weeks gestation of Obesity affecting in first trimester, unspecified obesity type Supervision of high risk in first trimester Procedures OBSTETRIC ULTRASOUND WHI US PREG UTERUS AFTER 1ST TRIMEST GESTATION Ankita Carrillo MD [address] [place] [address] Phone: tel: fax: [address] [address] Referral ID Status Reason Start Date Expiration Date V isits Requested Visits Authorized [id number] Closed Auto-Generate d Referral 04/29/2024 04/29/2025 1 1 Reason Onset Date Comments Care 07/27/2024 Specialty Diagnoses / Procedures Referred By Contac t Referred To Contact [facility] Diagnoses Single umbilical artery, maternal, antepartum (HCC) Procedures OBSTETRIC ULTRASOUND WHI US PREG UTERUS AFTER 1ST TRIMEST GESTATION Willa Smith [place] [id number] [place] [address] Phone: tel: fax: [address] [address] Referral ID Status Reason Start Date Expiration Date V isits Requested Visits Authorized [id number] Closed Auto-Generate d Referral 06/24/2024 06/24/2025 1 1 Reason Comments Care Plan Introduction Reason Comments Genetics Specialty Diagnoses / Procedures Referred By Contac t Referred To Contact Diagnoses Single umbilical artery, maternal, antepartum (HCC) Abnormal ultrasound Procedures CONSULT TO MEDICAL GENETICS - MEDICAL GENETICS COUNSELING EACH 30 [place] [address] [place] [address] Phone: tel: fax: Genetic [address] [address] Referral ID Status Reason Start Date Expiration Date V isits Requested Visits Authorized [id number] Closed PCP Requested Referral Auto-Generated Referral 07/27/2024 07/27/2025 1 1 Reason Onset Date Comments Care 08/03/2024 Reason Comments Consult Reason Comments carrier screening results Specialty Diagnoses / Procedures Referred By Contac t Referred To Contact [facility] Diagnoses Abnormal ultrasound Single umbilical artery, maternal, antepartum (HCC) Procedures OBSTETRIC ULTRASOUND WHI US PREG UTERUS AFTER 1ST [place] [address] [address] [place] [address] Phone: tel: fax: [address] [address] Referral ID Status Reason Start Date Expiration Date V isits Requested Visits Authorized [id number] Closed Auto-Generate d Referral 07/29/2024 07/29/2025 1 1 Reason Onset Date Comments Care 08/27/2024 Specialty Diagnoses / Procedures Referred By Contac t Referred To Contact [facility] Diagnoses Obesity during in third trimester (HCC) Procedures OBSTETRIC ULTRASOUND WHI US PREG UTERUS AFTER 1ST TRIMEST GESTATION Niru Harrington MD [address] [place] [address] Phone: tel: fax: [facility] [address] [place] [address] Referral ID Status Reason Start Date Expiration Date V isits Requested Visits Authorized [id number] Closed Auto-Generate d Referral 08/27/2024 04/27/2025 1 1 Reason Onset Date Comments Care 09/10/2024 Specialty Diagnoses / Procedures Referred By Contac t Referred To Contact [facility] Diagnoses Single umbilical artery affecting management of mother, antepartum, single gestation (HCC) Procedures OBSTETRIC ULTRASOUND WHI US PREG UTERUS AFTER 1ST TRIMEST GESTATION Niru Harrington MD [address] [place] [address] Phone: tel: fax: [facility] [address] [place] [address] Referral ID Status Reason Start Date Expiration Date V isits Requested Visits Authorized [id number] Closed Auto-Generate d Referral 08/27/2024 08/27/2025 5 1 Reason Onset Date Comments Care 09/21/2024 Reason Onset Date Comments Care 09/30/2024 Reason Onset Date Comments Care 10/04/2024 Reason Comments OB Elevated BP Reason Onset Date Comments Care 09/24/2024 Reason Onset Date Comments Care 10/11/2024 Reason Onset Date Comments Care 10/18/2024 Care Teams (unrecognized sec tion and content) Veterinary Technician Relationship Specialty Start Date [place] [address] PCP - General 11/29/14 Veterinary Technician Relationship Specialty Start Date [place] [address] PCP - General 11/29/14 Veterinary Technician Relationship Specialty Start Date [place] [address] PCP - General 11/29/14 Veterinary Technician Relationship Specialty Start Date [place] [address] PCP - General 11/29/14 Veterinary Technician Relationship Specialty Start Date End Date Favian Mariee MD [address] [place] [address] PCP - General 11/29/14 Veterinary Technician Relationship Specialty Start Date End Date Favian Mariee MD [address] [facility] [place] [address] PCP - General 11/29/14 Veterinary Technician Relationship Specialty Start Date End Date Favian Mariee [address] [facility] [place] [address] PCP - General Family Medicine 03/19/23 Veterinary Technician Relationship Specialty Start Date End Date Favian Mariee [address] [facility] [place] [address] PCP - General Family Medicine 03/19/23 Veterinary Technician Relationship Specialty Start Date End Date Favian Mariee [address] [facility] [place] [address] PCP - General Family Medicine 03/19/23 Veterinary Technician Relationship Specialty Start Date End Date Favian Mariee [address] [facility] [place] [address] PCP - General Family Medicine 03/19/23 Veterinary Technician Relationship Specialty Start Date End Date Favian Mariee [address] [facility] [place] [address] PCP - General Family Medicine 03/19/23 Veterinary Technician Relationship Specialty Start Date End Date Favian Mariee [address] [place] [address] PCP - General Family Medicine 03/19/23 Veterinary Technician Relationship Specialty Start Date End Date Favian Mariee [address] [facility] [place] [address] PCP - General Family Medicine 03/19/23 Veterinary Technician Relationship Specialty Start Date End Date Favian Mariee [address] [facility] [place] [address] PCP - General Family Medicine 03/19/23 Veterinary Technician Relationship Specialty Start Date End Date Favian Mariee [address] [facility] [place] [address] PCP - General Family Medicine 03/19/23 Veterinary Technician Relationship Specialty Start Date End Date Favian Mariee [address] [facility] [place] [address] PCP - General Family Medicine 03/19/23 Veterinary Technician Relationship Specialty Start Date End Date Favian Mariee [facility] [place] [address] PCP - General Family Medicine 03/19/23 Veterinary Technician Relationship Specialty Start Date End Date Favian Mariee [address] [facility] [place] [address] PCP - General Family Medicine 03/19/23 Veterinary Technician Relationship Specialty Start Date End Date Favian Mariee [address] [facility] [place] [address] PCP - General Family Medicine 03/19/23 Veterinary Technician Relationship Specialty Start Date End Date Favian Mariee [address] [facility] [place] [address] PCP - General Family Medicine 03/19/23 Veterinary Technician Relationship Specialty Start Date End Date Favian Mariee [address] [facility] [place] [address] PCP - General Family Medicine 03/19/23 Veterinary Technician Relationship Specialty Start Date End Date Favian Mariee 25 [facility] [place] [address] PCP - General Family Medicine 03/19/23 Veterinary Technician Relationship Specialty Start Date End Date Favian Mariee 25 [facility] [place] [address] PCP - General Family Medicine 03/19/23 Nemo Thompson, freight representativeConservation Planner Medicine 07/29/24 11/18/24 Veterinary Technician Relationship Specialty Start Date End Date Favian Mariee 25 [facility] [place] [address] PCP - General Family Medicine 03/19/23 Nemo Thompson, freight representativeConservation Planner Medicine 07/29/24 11/18/24 Veterinary Technician Relationship Specialty Start Date End Date Favian Mraiee [address] [facility] [place] [address] PCP - General Family Medicine 03/19/23 Nemo Thompson, freight representativeConservation Planner Medicine 07/29/24 11/18/24 Veterinary Technician Relationship Specialty Start Date End Date Favian Mariee 25 [facility] [place] [address] PCP - General Family Medicine 03/19/23 Nemo Thompson, freight representativeConservation Planner Medicine 07/29/24 11/18/24 Veterinary Technician Relationship Specialty Start Date End Date Favian Mariee [address] [facility] [place] [address] PCP - General Family Medicine 03/19/23 Nemo Thompson, freight representativeConservation Planner Medicine 07/29/24 11/18/24 Veterinary Technician Relationship Specialty Start Date End Date Favian Mariee 25 [facility] [place] [address] PCP - General Family Medicine 03/19/23 Nemo Thompson, freight representativeConservation Planner Medicine 07/29/24 11/18/24 Veterinary Technician Relationship Specialty Start Date End Date Favian Mariee [address] [facility] [place] [address] PCP - General Family Medicine 03/19/23 Nemo Thompson, freight representativeConservation Planner Medicine 07/29/24 11/18/24 Veterinary Technician Relationship Specialty Start Date End Date Favian Mariee [address] [facility] [place] [address] PCP - General Family Medicine 03/19/23 Nemo Thompson, freight representativeConservation Planner Medicine 07/29/24 11/18/24 Veterinary Technician Relationship Specialty Start Date End Date [facility]avian Mariee [address] [facility] [place] [address] PCP - General Family Medicine 03/19/23 Nemo Thompson, freight representativeConservation Planner Medicine 07/29/24 11/18/24 Veterinary Technician Relationship Specialty Start Date End Date Favian Mariee [facility] [place] [address] PCP - General Family Medicine 03/19/23 Nemo Thompson, freight representativeConservation Planner Medicine 07/29/24 11/18/24 Veterinary Technician Relationship Specialty Start Date End Date [facility]avian [facility]e [facility] [place] [address] PCP - General Family Medicine 03/19/23 Nemo Thompson, freight representativeConservation Planner Medicine 07/29/24 11/18/24 Veterinary Technician Relationship Specialty Start Date End Date [facility]avian [facility] [place] [address] PCP - General Family Medicine 03/19/23 Nemo Thompson, freight representativeConservation Planner Medicine 07/29/24 11/18/24 Team Status: Active Member Role Status Dates Erin Singh BANK COMPLIANCE OFFICER, BANK COMPLIANCE OFFICER-C Primary Care Provider Active Team Status: Inactive Member Role Status Dates Erin Singh BANK COMPLIANCE OFFICER, BANK COMPLIANCE OFFICER-C Primary Care Provider Active Start: September 13, 2024 End: September 13, 2024 Dr. Darryl Adkins DO Attending Provider Active Start: September 13, 2024 End: September 13, 2024 Dr. Darryl Adkins DO Referring Provider Active Start: September 13, 2024 End: September 13, 2024 Veterinary Technician Relationship Specialty Start Date End Date Favian Mariee [facility] [place] [place] [address] PCP - General Family Medicine 03/19/23 Nemo Thompson, freight representativeConservation Planner Medicine 07/29/24 11/18/24 Veterinary Technician Relationship Specialty Start Date End Date Favian Mariee [address] [facility] [place] [address] PCP - General Family Medicine 03/19/23 Nemo Thompson, freight representativeConservation Planner Medicine 07/29/24 11/18/24 Veterinary Technician Relationship Specialty Start Date End Date Noel Marieeyamini Martin [address] [facility] [place] [address] PCP - General Family Medicine 03/19/23 Nemo Thompson, freight representativeConservation Planner Medicine 07/29/24 11/18/24 Veterinary Technician Relationship Specialty Start Date End Date JayleneFavian 25 [address] [facility] [place] [address] PCP - General Family Medicine 03/19/23 Nemo Thompson, freight representativeConservation Planner Medicine 07/29/24 11/18/24 Veterinary Technician Relationship Specialty Start Date End Date JayleneFavian [facility] [place] [address] PCP - General Family Medicine 03/19/23 Nemo Thompson, freight representativeConservation Planner Medicine 07/29/24 11/18/24 Team Status: Inactive Member Role Status Dates Erin Singh NP, BANK COMPLIANCE OFFICER-C Primary Care Provider Active Start: October 07, 2024 End: October 07, 2024 Dr. Darryl Adkins , Attending Provider Active Start: October 07, 2024 End: October 07, 2024 Dr. Darryl Adkins , Referring Provider Active Start: October 07, 2024 End: October 07, 2024 Veterinary Technician Relationship Specialty Start Date End Date Favian Mariee [address] [facility] [place] [address] PCP - General Family Medicine 03/19/23 Nemo Thompson, freight representativeConservation Planner Medicine 07/29/24 11/18/24 Veterinary Technician Relationship Specialty Start Date End Date Favian Mariee [address] [facility] [place] [address] PCP - General Family Medicine 03/19/23 Nemo Thompson, freight representativeConservation Planner Medicine 07/29/24 11/18/24 Veterinary Technician Relationship Specialty Start Date End Date Favian Mariee [address] [facility] [place] [address] PCP - General Family Medicine 03/19/23 Nemo Thompson RN Conservation Planner Medicine 07/29/24 11/18/24 Veterinary Technician Relationship Specialty Start Date End Date Favian Mariee [address] [facility] [place] [address] PCP - General Family Medicine 03/19/23 Nemo Thompson RN Conservation Planner Medicine 07/29/24 11/18/24 Veterinary Technician Relationship Specialty Start Date End Date Favian Mariee [address] [facility] [place] [address] PCP - General Family Medicine 03/19/23 Nemo Thompson, freight representativeConservation Planner Medicine 07/29/24 11/18/24 Source Comments (unrecognize d section and content) In the event this informatio n is protected by the Federal Confidentiality of Alcohol and Drug Abuse Patient Records regulations: The Federal rules restrict any use of the information to criminally investigate or prosecute any alcohol or drug abuse patient.[facility]In the event this information is protected by the Federal Confidentiality of Alcohol and Drug Abuse Patient Records regulations: The Federal rules restrict any use of the information to criminally investigate or prosecute any alcohol or drug abuse patient.[facility] WestIn the event this information is protected by the Federal Confidentiality of Alcohol and Drug Abuse Patient Records regulations: The Federal rules restrict any use of the information to criminally investigate or prosecute any alcohol or drug abuse patient.[facility]In the event this information is protected by the Federal Confidentiality of Alcohol and Drug Abuse Patient Records regulations: The Federal rules restrict any use of the information to criminally investigate or prosecute any alcohol or drug abuse patient.[facility]In the event this information is protected by the Federal Confidentiality of Alcohol and Drug Abuse Patient Records regulations: The Federal rules restrict any use of the information to criminally investigate or prosecute any alcohol or drug abuse patient.[facility]In the event this information is protected by the Federal Confidentiality of Alcohol and Drug Abuse Patient Records regulations: The Federal rules restrict any use of the information to criminally investigate or prosecute any alcohol or drug abuse patient.[facility]In the event this information is protected by the Federal Confidentiality of Alcohol and Drug Abuse Patient Records regulations: The Federal rules restrict any use of the information to criminally investigate or prosecute any alcohol or drug abuse patient.[facility]In the event this information is protected by the Federal Confidentiality of Alcohol and Drug Abuse Patient Records regulations: The Federal rules restrict any use of the information to criminally investigate or prosecute any alcohol or drug abuse patient.[facility]In the event this information is protected by the Federal Confidentiality of Alcohol and Drug Abuse Patient Records regulations: The Federal rules restrict any use of the information to criminally investigate or prosecute any alcohol or drug abuse patient.[facility]In the event this information is protected by the Federal Confidentiality of Alcohol and Drug Abuse Patient Records regulations: The Federal rules restrict any use of the information to criminally investigate or prosecute any alcohol or drug abuse patient.[facility]In the event this information is protected by the Federal Confidentiality of Alcohol and Drug Abuse Patient Records regulations: The Federal rules restrict any use of the information to criminally investigate or prosecute any alcohol or drug abuse patient.[facility]In the event this information is protected by the Federal Confidentiality of Alcohol and Drug Abuse Patient Records regulations: The Federal rules restrict any use of the information to criminally investigate or prosecute any alcohol or drug abuse patient.[facility]In the event this information is protected by the Federal Confidentiality of Alcohol and Drug Abuse Patient Records regulations: The Federal rules restrict any use of the information to criminally investigate or prosecute any alcohol or drug abuse patient.[facility]In the event this information is protected by the Federal Confidentiality of Alcohol and Drug Abuse Patient Records regulations: The Federal rules restrict any use of the information to criminally investigate or prosecute any alcohol or drug abuse patient.[facility]In the event this information is protected by the Federal Confidentiality of Alcohol and Drug Abuse Patient Records regulations: The Federal rules restrict any use of the information to criminally investigate or prosecute any alcohol or drug abuse patient.[facility]In the event this information is protected by the Federal Confidentiality of Alcohol and Drug Abuse Patient Records regulations: The Federal rules restrict any use of the information to criminally investigate or prosecute any alcohol or drug abuse patient.[facility]In the event this information is protected by the Federal Confidentiality of Alcohol and Drug Abuse Patient Records regulations: The Federal rules restrict any use of the information to criminally investigate or prosecute any alcohol or drug abuse patient.[facility]In the event this information is protected by the Federal Confidentiality of Alcohol and Drug Abuse Patient Records regulations: The Federal rules restrict any use of the information to criminally investigate or prosecute any alcohol or drug abuse patient.[facility]In the event this information is protected by the Federal Confidentiality of Alcohol and Drug Abuse Patient Records regulations: The Federal rules restrict any use of the information to criminally investigate or prosecute any alcohol or drug abuse patient.[facility]In the event this information is protected by the Federal Confidentiality of Alcohol and Drug Abuse Patient Records regulations: The Federal rules restrict any use of the information to criminally investigate or prosecute any alcohol or drug abuse patient.[facility]In the event this information is protected by the Federal Confidentiality of Alcohol and Drug Abuse Patient Records regulations: The Federal rules restrict any use of the information to criminally investigate or prosecute any alcohol or drug abuse patient.[facility]In the event this information is protected by the Federal Confidentiality of Alcohol and Drug Abuse Patient Records regulations: The Federal rules restrict any use of the information to criminally investigate or prosecute any alcohol or drug abuse patient.[facility]In the event this information is protected by the Federal Confidentiality of Alcohol and Drug Abuse Patient Records regulations: The Federal rules restrict any use of the information to criminally investigate or prosecute any alcohol or drug abuse patient.[facility]In the event this information is protected by the Federal Confidentiality of Alcohol and Drug Abuse Patient Records regulations: The Federal rules restrict any use of the information to criminally investigate or prosecute any alcohol or drug abuse patient.[facility]In the event this information is protected by the Federal Confidentiality of Alcohol and Drug Abuse Patient Records regulations: The Federal rules restrict any use of the information to criminally investigate or prosecute any alcohol or drug abuse patient.[facility]In the event this information is protected by the Federal Confidentiality of Alcohol and Drug Abuse Patient Records regulations: The Federal rules restrict any use of the information to criminally investigate or prosecute any alcohol or drug abuse patient.[facility]In the event this information is protected by the Federal Confidentiality of Alcohol and Drug Abuse Patient Records regulations: The Federal rules restrict any use of the information to criminally investigate or prosecute any alcohol or drug abuse patient.[facility]In the event this information is protected by the Federal Confidentiality of Alcohol and Drug Abuse Patient Records regulations: The Federal rules restrict any use of the information to criminally investigate or prosecute any alcohol or drug abuse patient.[facility]In the event this information is protected by the Federal Confidentiality of Alcohol and Drug Abuse Patient Records regulations: The Federal rules restrict any use of the information to criminally investigate or prosecute any alcohol or drug abuse patient.[facility]In the event this information is protected by the Federal Confidentiality of Alcohol and Drug Abuse Patient Records regulations: The Federal rules restrict any use of the information to criminally investigate or prosecute any alcohol or drug abuse patient.[facility]In the event this information is protected by the Federal Confidentiality of Alcohol and Drug Abuse Patient Records regulations: The Federal rules restrict any use of the information to criminally investigate or prosecute any alcohol or drug abuse patient.[facility]In the event this information is protected by the Federal Confidentiality of Alcohol and Drug Abuse Patient Records regulations: The Federal rules restrict any use of the information to criminally investigate or prosecute any alcohol or drug abuse patient.[facility]In the event this information is protected by the Federal Confidentiality of Alcohol and Drug Abuse Patient Records regulations: The Federal rules restrict any use of the information to criminally investigate or prosecute any alcohol or drug abuse patient.[facility] WestIn the event this information is protected by the Federal Confidentiality of Alcohol and Drug Abuse Patient Records regulations: The Federal rules restrict any use of the information to criminally investigate or prosecute any alcohol or drug abuse patient.[facility] WestIn the event this information is protected by the Federal Confidentiality of Alcohol and Drug Abuse Patient Records regulations: The Federal rules restrict any use of the information to criminally investigate or prosecute any alcohol or drug abuse patient.[facility] WestIn the event this information is protected by the Federal Confidentiality of Alcohol and Drug Abuse Patient Records regulations: The Federal rules restrict any use of the information to criminally investigate or prosecute any alcohol or drug abuse patient.[facility] WestIn the event this information is protected by the Federal Confidentiality of Alcohol and Drug Abuse Patient Records regulations: The Federal rules restrict any use of the information to criminally investigate or prosecute any alcohol or drug abuse patient.[facility] WestIn the event this information is protected by the Federal Confidentiality of Alcohol and Drug Abuse Patient Records regulations: The Federal rules restrict any use of the information to criminally investigate or prosecute any alcohol or drug abuse patient.[facility] WestIn the event this information is protected by the Federal Confidentiality of Alcohol and Drug Abuse Patient Records regulations: The Federal rules restrict any use of the information to criminally investigate or prosecute any alcohol or drug abuse patient.[facility] WestIn the event this information is protected by the Federal Confidentiality of Alcohol and Drug Abuse Patient Records regulations: The Federal rules restrict any use of the information to criminally investigate or prosecute any alcohol or drug abuse patient.[facility] WestIn the event this information is protected by the Federal Confidentiality of Alcohol and Drug Abuse Patient Records regulations: The Federal rules restrict any use of the information to criminally investigate or prosecute any alcohol or drug abuse patient.[facility] WestIn the event this information is protected by the Federal Confidentiality of Alcohol and Drug Abuse Patient Records regulations: The Federal rules restrict any use of the information to criminally investigate or prosecute any alcohol or drug abuse patient.[facility] WestIn the event this information is protected by the Federal Confidentiality of Alcohol and Drug Abuse Patient Records regulations: The Federal rules restrict any use of the information to criminally investigate or prosecute any alcohol or drug abuse patient.[facility] WestIn the event this information is protected by the Federal Confidentiality of Alcohol and Drug Abuse Patient Records regulations: The Federal rules restrict any use of the information to criminally investigate or prosecute any alcohol or drug abuse patient.[facility] WestIn the event this information is protected by the Federal Confidentiality of Alcohol and Drug Abuse Patient Records regulations: The Federal rules restrict any use of the information to criminally investigate or prosecute any alcohol or drug abuse patient.[facility] WestIn the event this information is protected by the Federal Confidentiality of Alcohol and Drug Abuse Patient Records regulations: The Federal rules restrict any use of the information to criminally investigate or prosecute any alcohol or drug abuse patient.[facility] WestIn the event this information is protected by the Federal Confidentiality of Alcohol and Drug Abuse Patient Records regulations: The Federal rules restrict any use of the information to criminally investigate or prosecute any alcohol or drug abuse patient.[facility] WestIn the event this information is protected by the Federal Confidentiality of Alcohol and Drug Abuse Patient Records regulations: The Federal rules restrict any use of the information to criminally investigate or prosecute any alcohol or drug abuse patient.[facility] Goals (unrecognized section and content) Goals may be documented in a n alternate sectionGoals may be documented in an alternate section FOR RECORDS PERTAINING TO PATIENTS WHO ARE OR HAVE BEEN ENROLLED IN A CHEMICAL DEPENDENCY/SUBSTANCEABUSE PROGRAM, SOME INFORMATION MAY BE OMITTED. This clinical summary was aggregated from multiple sources. Caution should be exercised in using it in the provision of clinical care. This summary normalizes information from multiple sources, and as a consequence, information in this document may materially change the coding, format and clinical context of patient data. In addition, data may be omitted in some cases. CLINICAL DECISIONS SHOULD BE BASED ON THE PRIMARY CLINICAL RECORDS. [facility] [employer] [facility]. provides no warranty or guarantee of the accuracy or completeness of information in this document.
[2024-10-20] MEDS: LACTATED RINGERS 500 ML 999 ML IV (01:05)
[2024-10-20] MEDS: fentaNYL 100 MCG/2 ML Ampul IV (01:36)
--- OUTSIDE RECORDS SUMMARY | 2024-10-20 02:07 | XMS RPT_ITS | CCD ---
Author Organization [facility] Care Team Providers Care Hatchery Supervisor Name Role Phone Favian Mariee Mario Primary Care Provider ERIN SINGH Attending Unavailable [facility] Unavailable [facility] Provider Nemo Thompson RN Unavailable UnavailDONNA Bey Admitting Unavailable DONNA COURTNEY Attending Unavailable [facility] UnavailMELI Castaneda Attending Unavailable [facility] Unavailabl joanie [facility] Unavailjaqui Singh NP-C, [place] Primary Care Provider Dr. Darryl Adkins DO Attending Provider Dr. Darryl Adkins DO Referring Provider Darryl Adkins Attending Unavailable Francisco EXAMINATION SUPERVISOR, [place] [facility] Unavailable Darryl Adkins Referring Unavailable Darryl Adkins Attending Unavailable Francisco EXAMINATION SUPERVISOR, [place] [facility] Unavailable Darryl Adkins Referring Unavailable Francisco EXAMINATION SUPERVISOR, [place] [facility] Unavailable Len, Niru Referring Unavailable Niru Harrington Attending Unavailable Len Niru Admitting Unavailable Francisco EXAMINATION SUPERVISOR, [place] [facility] Unavailable Jay Jay Stevenson Attending Unavailable Francisco EXAMINATION SUPERVISOR, [place] [facility] Unavailable Francisco EXAMINATION SUPERVISOR, Erin Referring Unavailable Niru Ireland Attending Unavailjaqui Singh EXAMINATION SUPERVISOR, [place] [facility] Unavailable Francisco EXAMINATION SUPERVISOR, Erin Referring Unavailable Niru Ireland Attending Unavailjaqui Singh EXAMINATION SUPERVISOR, [place] [facility] Unavailable Niru Ireland Consulting UnavailNiru Gage Attending Unavailabl joanie Singh EXAMINATION SUPERVISOR, [facility] Care Unavailable Niru Ireland Attending Unavailabl e Velde, Niru Vande Referring Unavailabl e Francisco EXAMINATION SUPERVISOR, [facility] Unavailable Niru Ireland Attending Unavailabl e Velde, Niru Vande Referring Unavailabl e Francisco EXAMINATION SUPERVISOR, [facility] Unavailable Irma Miner Referring Unavailable Irma Miner Attending Unavailable Francisco EXAMINATION SUPERVISOR, [facility] Care Unavailable Irma Miner Referring Unavailable Irma Miner Attending Unavailable Francisco EXAMINATION SUPERVISOR, [facility] Unavailable Velde, Niru Marlae Referring Unavailabl e Velde, Niru Marlae Attending Unavailabl e Francisco EXAMINATION SUPERVISOR, [place] Referring Unavailable Francisco EXAMINATION SUPERVISOR, [facility] Care Unavailable Irma Miner Attending Unavailable Francisco EXAMINATION SUPERVISOR, [facility] Unavailable VelNiru harvey Attending Unavailabl e DARRYL ADKINS Referring Unavailable [facility] Unavailabl e [facility] Unavailabl e DEB RICHARD Attending Unavailable DEB RICHARD Referring Unavailable [facility] Unavailabl e DEB RICHARD Referring Unavailable NIRU HARRINGTON Referring Unavailable [facility] Unavailabl e [facility] Unavailabl e DEB RICHARD Referring Unavailable [facility] Unavailabl e AHMEDBELLEMED Referring Unavailable JESSI RAMIREZ Attending Unavail able [facility] Unavailabl e NIRU HARRINGTON Referring Unavailable [facility] Unavailabl e [facility] Unavailabl e DEB RICHARD Referring Unavailable [facility] Unavailabl ANKITA Daley Attending Unavailable [facility] Unavailabl ANKITA Daley Referring Unavailable FAISAL COLLINS Attending Unavailable [facility] Unavailabl e JAYLENE, [facility] Unavailabl e NIRU HARRINGTON Referring Unavailable DEB RICHARD Attending Unavailable [facility] Unavailabl e LEN, NIRU Referring Unavailable [facility]ail[facility] e NIRU HARRINGTON Attending Unavailable DARRYL ADKINS Referring Unavailable [facility] Unavailabl e IGTA NATION Attending Unavailable [facility] Unavailabl e LEN, NIRU Referring Unavailable [facility], [facility] Care Unavailabl e PLOTCHIKI, DEB Referring Unavailable JAYLENE, [facility] Care Unavailabl e PLOTTS, DEB Referring Unavailable LEN, NIRU Referring Unavailable [facility], [facility] Care Unavailabl e JAYLENE, [facility] Care Unavailabl e THEO BOYLE Attending Unavailable LEN, NIRU Referring Unavailable [facility], [facility] Care Unavailabl e LUZ ELENA LAGUNA Attending Unavailable [facility] Unavailabl e ANKITA CARIRLLO Referring Unavailable [facility] Unavailabl e NIRU HARRINGTON Attending Unavailable [facility] Unavailabl e THEO BOYLE Referring Unavailable [facility] Referring Unavailable [facility] Unavailabl e [facility], [facility] Care Unavailabl e THEO BOYLE Referring Unavailable [facility] Unavailabl RACHEL Banegas Attending Unavailable LEN, NIRU Referring Unavailable [facility] Unavailabl e GITA NATION Attending Unavailable [facility] Unavailabl e LEN, NIRU Referring Unavailable GITA NATION Referring Unavailable [facility] Unavailabl e [facility], [facility] Care Unavailabl e LEN, NIRU Referring Unavailable [facility] Unavailabl e LEN, NIRU Referring Unavailable LEN NIRU Attending Unavailable [facility] Primary Care Unavailabl e LEN, NIRU Referring Unavailable [facility], [facility] Primary Care Unavailabl e WILLA SMITH Referring Unavailable [facility], [facility] Care Unavailabl e LEN, NIRU Attending Unavailable BELLE LAGUNAMED Referring Unavailable [facility], [facility] Primary Care Unavailabl e LEN, NIRU Referring Unavailable LEN, NIRU Attending Unavailable [facility], [facility] Primary Care Unavailabl RACHEL Rooney Attending Unavailable SELF Referring Unavailable DARRYL ADKINS Referring Unavailable FAVIAN MARIEE [facility] UnavailFAVIAN Mendoza [facility] UnavailRACHEL Diaz Attending Unavailable FAVIAN MARIEE MARIO [facility] UnavailLUZ ELENA Beltran Referring Unavailable DARRYL ADKINS Attending Unavailable FAVIAN MARIEE [facility] e Medications Current Medications Medication Drug Class(es) [...] day. 270 tablet 1 09/21/2024 Active Multivit 72-Zmpd-Woogzb 1-Dha (Pnv-Dha) 27 mg iron-1 mg -300 mg capsule (2 sources) Start: 11-04-2023 Multivit 79-Edhj-Elvkao 1-Dha (Pnv-Dha) 27 mg iron-1 mg -300 [...] 14 capsule 0 09/06/2022 09/13/2022 Active VIT 9-VUFC-VZVZZ-DHA ORAL (20 sources) VIT 1-GDSW-IDANQ-DHA ORAL Take by mouth. Active selenium sulfide [...] / neomycin 3.5 mg/ml / polymyxin b 61166 unt/ml otic solution (7 sources) Aminoglycoside Antibacterial, [...] B/Oon Glucose Ql (U) Negative Neg mg/dL [facility] Interpretation and review of laboratory results Normal [facility] Protein.monoclonal (U) [Mass/Vol] Negative Neg mg/dL [facility] Examination level ultrasound on 10-14-2024 [facility] Radiology Study observation (narrative) [facility] OB Triage Physician Noteon 0 10-12-2024 OB Triage Physician Note [facility] Medical Records Department [address] [place] [address] OB Triage Physician Note 10/12/24 1319 MR#: [id number] Acct: [id number] Name: ALON SCHMITT Rep #: [id number] : 2000 23 From: Gita Nation MD PCP: DANYEL Matthew Status:DEP CLI Y Location: [facility] HPI - General General Date of Admission: 10/07/24 Date of Service: 10/07/24 Chief Complaint: elevated bp HPI Narrative ALON SCHMITT, is a 23 F who presents with elevated BP Maternal Data Information Final LUIS: 11/08/24 Gestational age: 35 3/7 [facility] Medical History (Updated 10/12/24 @ 13:22 by [...] Nation MD) Status post dilation and curettage [place] teeth extracted History of cholecystectomy Social History adopted: No household members: spouse current occupational status: employed current occupation: [employer] current occupational exposures/hazards: No pets and animals: [...] 1-2 times per week duration: 30-45 minutes/day kenyetta/rastafarian: Anabaptism seatbelt use: always do you feel safe at home: Yes 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 Gita Nation MD Signed Normal [facility] CBC panel Auto (Bld)on 10-11 Erythrocyte distribution width (RBC) [Ratio] 14.7 % 11.5 - 15.0 % [facility] Hematocrit (Bld) [Volume fraction] 40.5 % 36.0 - 46.0 % [facility] Hemoglobin (Bld) [Mass/Vol] 13.6 g/dL 11.5 - 15.5 g/dL [facility] Interpretation and review of laboratory results Abnormal [facility] MCH (RBC) [Entitic mass] 27.4 pg 26.0 - 34.0 pg [facility] MCHC (RBC) [Mass/Vol] 33.6 g/dL 30.5 - 36.0 g/dL [facility] MCV (RBC) [Entitic vol] 81.7 fL 80.0 - 100.0 fL [facility] Nucleated RBC (Bld) [#/Vol] NINF [facility] Platelet mean volume (Bld) [Entitic vol] 10.9 fL 9.0 - 12.7 fL [facility] Platelets (Bld) [#/Vol] 263 10*3/uL [facility] RBC (Bld) [#/Vol] 4.96 10*6/uL 3.90 - 5.2 0 m/uL [facility] WBC (Bld) [#/Vol] 11.47 10*3/uL [facility] Erythrocyte distribution width (RBC) [Ratio] 14.7 % Normal 11.5-15.0 [facility] Comment on above: Order Comment: Speci men Type: BLOOD SPECIMEN Ordering Facility: [facility] Address: [address] [place], [place] [address] Performed By: #### 2 4323-8, 3083-04 #### [facility] CLIA [id number] [address] [place] [address] [place] Hematocrit (Bld) [Volume fraction] 40.5 % Normal 36.0-46.0 [facility] Comment on above: Order Comment: Speci men Type: BLOOD SPECIMEN Ordering Facility: [facility] Address: [address] [place], [place] [address] Performed By: #### 2 4323-8, 3083-04 #### [facility] CLIA [id number] [address] [place] [address] [place] Hemoglobin (Bld) [Mass/Vol] 13.6 g/dL Normal 11.5-15.5 [facility] Comment on above: Order Comment: Speci men Type: BLOOD SPECIMEN Ordering Facility: [facility] Address: [address] [place] [address] Performed By: #### 2 4323-8, 3083-04 #### [facility] CLIA [id number] [address] [place] [address] [place] MCH (RBC) [Entitic mass] 27.4 pg Normal 26.0-34.0 [facility] Comment on above: Order Comment: Speci men Type: BLOOD SPECIMEN Ordering Facility: [facility] Address: [address] [place] [address] Performed By: #### 2 4323-8, 3083-04 #### [facility] CLIA [id number] [address] [place] [address] [place] MCHC (RBC) [Mass/Vol] 33.6 g/dL Normal 30.5-36.0 [facility] Comment on above: Order Comment: Speci men Type: BLOOD SPECIMEN Ordering Facility: [facility] Address: [address] [place] [address] Performed By: #### 2 4323-8, 3083- #### [facility] CLIA [id number] [address] [place] [address] [place] MCV (RBC) [Entitic vol] 81.7 fL Normal 80.0-100.0 [facility] Comment on above: Order Comment: Speci men Type: BLOOD SPECIMEN Ordering Facility: [facility] Address: [address] [place] [address] Performed By: #### 2 4323-8, 3083- #### [facility] CLIA [id number] [address] [place] [address] [place] Nucleated RBC (Bld) [#/Vol] 10*3/uL Normal <0.01 [facility] Comment on above: Order Comment: Speci men Type: BLOOD SPECIMEN Ordering Facility: [facility] Address: [address] [place] [address] Performed By: #### 2 4323-8, 3083-04 #### [facility] CLIA [id number] [address] [place] [address] [place] Platelet mean volume (Bld) [Entitic vol] 10.9 fL Normal 9.0-12.7 [facility] Comment on above: Order Comment: Speci men Type: BLOOD SPECIMEN Ordering Facility: [facility] Address: [address] [place] [address] Performed By: #### 2 4323-8, 3083-04 #### [facility] CLIA [id number] [address] [place] [address] [place] Platelets (Bld) [#/Vol] 263 10*3/uL Normal 150-400 [facility] Comment on above: Order Comment: Speci men Type: BLOOD SPECIMEN Ordering Facility: [facility] Address: [address] [place] [address] Performed By: #### 2 4323-8, 3083-1 #### [facility] CLIA [id number] [address] [place] [address] [place] RBC (Bld) [#/Vol] 4.96 10*6/uL Normal 3.90-5.20 [facility] Comment on above: Order Comment: Speci men Type: BLOOD SPECIMEN Ordering Facility: [facility] Address: [address] [place] [address] Performed By: #### 2 4323-8, 3084-1 #### [facility] CLIA [id number] [address] OF [place] WBC (Bld) [#/Vol] 11.47 10*3/uL High 3.70-11.00 [facility] Comment on above: Order Comment: Speci men Type: BLOOD SPECIMEN Ordering Facility: [facility] Address: [address] [place] [address] Performed By: #### 2 4323-8, 3084-1 #### [facility] CLIA [id number] [address] [place] Comprehensive metabolic 2000 panelOrdered By: Suri Hughes on 10-11-2024 Albumin [Mass/Vol] 3.6 g/dL Low 3.9 - 4.9 g/dL [facility] ALP [Catalytic activity/Vol] 94 U/L 34 - 123 U/L [facility] ALT [Catalytic activity/Vol] 9 U/L 7 - 38 U/L [facility] Anion gap [Moles/Vol] 9 mmol/L 8 - 15 mmol/L [facility] AST [Catalytic activity/Vol] 11 U/L Low 13 - 35 U/L [facility] Bilirubin [Mass/Vol] 0.2 mg/dL 0.2 - 1 .3 mg/dL [facility] Calcium [Mass/Vol] 9.3 mg/dL 8.5 - 10. 2 mg/dL [facility] Chloride [Moles/Vol] 103 mmol/L 98 - 10 7 mmol/L [facility] CO2 [Moles/Vol] 21 mmol/L Low 22 - 30 mmol/L [facility] Creatinine [Mass/Vol] 0.49 mg/dL Low 0.58 - 0.96 mg/dL [facility] GFR/1.73 sq M.predicted among non-blacks MDRD (S/P/Bld) [Vol rate/Area] 135 mL/min/{1.73_m2} - PINF [facility] Comment on above: Estimated Glomerular Filtration Rate [...] 103 mg/dL High 74 - 99 mg/dL [facility] Comment on above: The [place] Diabete [...] Interpretation and review of laboratory results Abnormal [facility] Potassium [Moles/Vol] 4.2 mmol/L 3.7 - 5.1 mmol/L [facility] Protein [Mass/Vol] 6.2 g/dL Low 6.3 - 8.0 g/dL [facility] Sodium [Moles/Vol] 133 mmol/L Low 136 - 144 mmol/L [facility] Urea nitrogen [Mass/Vol] 4 mg/dL Low 7 - 21 mg/d L [facility] Comprehensive metabolic 2000 panelon 10-11-2024 Albumin [Mass/Vol] 3.6 g/dL Low 3.9-4.9 [facility] Comment on above: Order Comment: Speci men Type: BLOOD SPECIMEN Ordering Facility: [facility] Address: [address] [place] [address] Performed By: #### 2 4323-8, 3083- #### [facility] CLIA [id number] [address] [place] [address] [place] ALP [Catalytic activity/Vol] 94 U/L Normal 34-123 [facility] Comment on above: Order Comment: Speci men Type: BLOOD SPECIMEN Ordering Facility: [facility] Address: [address] [place] [id number] Performed By: #### 2 4323-8, 3083-04 #### [facility] CLIA [id number] [address] [place] [address] [place] ALT [Catalytic activity/Vol] 9 U/L Normal 7-38 [facility] Comment on above: Order Comment: Speci men Type: BLOOD SPECIMEN Ordering Facility: [facility] Address: [address] [place] [address] Performed By: #### 2 4323-8, 3083-04 #### [facility] CLIA [id number] [address] [place] [address] [place] Anion gap [Moles/Vol] 9 mmol/L Normal 8-15 [facility] Comment on above: Order Comment: Speci men Type: BLOOD SPECIMEN Ordering Facility: [facility] Address: [address] [place] [address] Performed By: #### 2 4323-8, 3083-04 #### [facility] CLIA [id number] [address] [place] [address] [place] AST [Catalytic activity/Vol] 11 U/L Low 13-35 [facility] Comment on above: Order Comment: Speci men Type: BLOOD SPECIMEN Ordering Facility: [facility] Address: [address] [place] [address] Performed By: #### 2 4323-8, 3083-04 #### [facility] CLIA [id number] [address] [place] [address] [place] Bilirubin [Mass/Vol] 0.2 mg/dL Normal 0.2-1.3 [facility] Comment on above: Order Comment: Speci men Type: BLOOD SPECIMEN Ordering Facility: [facility] Address: [address] [place] [address] Performed By: #### 2 4323-8, 3083-04 #### [facility] CLIA [id number] [address] [place] [address] [place] Calcium [Mass/Vol] 9.3 mg/dL Normal 8.5-10.2 [facility] Comment on above: Order Comment: Speci men Type: BLOOD SPECIMEN Ordering Facility: [facility] Address: [address] [place] [address] Performed By: #### 2 4323-8, 3083-04 #### [facility] CLIA [id number] [address] [place] [address] [place] Chloride [Moles/Vol] 103 mmol/L Normal 98-107 [facility] Comment on above: Order Comment: Speci men Type: BLOOD SPECIMEN Ordering Facility: [facility] Address: [address] [place] [address] Performed By: #### 2 4323-8, 3083-04 #### [facility] CLIA [id number] [address] [place] [address] [place] CO2 [Moles/Vol] 21 mmol/L Low 22-30 [facility] Comment on above: Order Comment: Speci men Type: BLOOD SPECIMEN Ordering Facility: [facility] Address: [address] [place] [address] Performed By: #### 2 4323-8, 3083- #### [facility] CLIA [id number] [address] [place] [address] [place] Creatinine [Mass/Vol] 0.49 mg/dL Low 0.58-0.96 [facility] Comment on above: Order Comment: Louie san Type: BLOOD SPECIMEN Ordering Facility: [facility] Address: [address] [place] [address] Performed By: #### 2 4323-8, 3083-1 #### [facility] CLIA [id number] [address] [place] [address] [place] Creatinine and Glomerular filtration rate.predicted panel (S/P/Bld) 135 mL/min/1.73m??? Normal >=60 [facility] Comment on above: Order Comment: Louie san Type: BLOOD SPECIMEN Ordering Facility: [facility] Address: [address] [place] [address] Result Comment: Swati mated Glomerular Filtration Rate [...] Performed By: #### 2 4323-8, 3083-04 #### [facility] CLIA [id number] [address] [place] [address] [place] Glucose [Mass/Vol] 103 mg/dL High 74-99 [facility] Comment on above: Order Comment: Louie san Type: BLOOD SPECIMEN Ordering Facility: [facility] Address: [address] [place] [address] Result Comment: The [place] [employer] (ADA) [...] Performed By: #### 2 4323-8, 3083-04 #### [facility] CLIA [id number] [address] [place] [address] [place] Potassium [Moles/Vol] 4.2 mmol/L Normal 3.7-5.1 [facility] Comment on above: Order Comment: Speci men Type: BLOOD SPECIMEN Ordering Facility: [facility] Address: [address] [place], [place] [id number] Performed By: #### 2 4323-8, 3083-04 #### [facility] CLIA [id number] [address] [place] [address] [place] Protein [Mass/Vol] 6.2 g/dL Low 6.3-8.0 [facility] Comment on above: Order Comment: Speci men Type: BLOOD SPECIMEN Ordering Facility: [facility] Address: [address] [place] [address] Performed By: #### 2 4323-8, 3083-04 #### [facility] CLIA [id number] [address] [place] [address] [place] Sodium [Moles/Vol] 133 mmol/L Low 136-144 [facility] Comment on above: Order Comment: Speci men Type: BLOOD SPECIMEN Ordering Facility: [facility] Address: [address] [place] [address] Performed By: #### 2 4323-8, 3083-04 #### [facility] CLIA [id number] [address] [place] [address] [place] Urea nitrogen [Mass/Vol] 4 mg/dL Low 7-21 [facility] Comment on above: Order Comment: Speci men Type: BLOOD SPECIMEN Ordering Facility: [facility] Address: [address] [place] [address] Performed By: #### 2 4323-8, 3083-04 #### [id number] [address] [place] [address] [place] Prot/Creat Uron 10-11-2024 Protein/Creatinine (U) [Mass ratio] 0.15 mg/mg High <0.15 [facility] Comment on above: Order Comment: Speci men Type: BLOOD SPECIMEN Ordering Facility: [facility] Address: [address] [place] [address] Result Comment: Adul t Proteinuria Categories: <0.15 mg/mg is considered normal to mildly increased 0.15 - 0.50 mg/mg is considered moderately increased >0.50 mg/mg is considered severely increased KDIGO. (2013). KDIGO 2012 Clinical Practice Guideline for the Evaluation and Management of Chronic Kidney Disease. Official Journal of the International Society of Nephrology, 3(1), 1-150. Performed By: #### 2 4323-8, 3083-04 #### [facility] [id number] [address] [place] [address] [place] Protein/Creatinine (U) [Mass ratio]on 10-11-2024 Creatinine (U) [Mass/Vol] 40.0 mg/dL Normal 20.0-300.0 [facility] Comment on above: Order Comment: Speci men Type: BLOOD SPECIMEN Ordering Facility: [facility] Address: [address] [place] [address] Performed By: #### 2 4323-8, 3083-04 #### [facility] [id number] [address] [place] [address] [place] Protein (U) [Mass/Vol] 6 mg/dL Normal 0-20 [facility] Comment on above: Order Comment: Speci men Type: BLOOD SPECIMEN Ordering Facility: [facility] Address: [address] [place] [address] Performed By: #### 2 4323-8, 3084-1 #### [facility] CLIA [id number] [address] [place] [address] [place] ROUTINE, GROUP B ST REPTOCOCCUS BY PCRon 10-11-2024 ROUTINE, GROUP B STREPTOCOCCUS BY PCR Detected Abnormal [facility] Comment on above: Performed By: #### G BPCR ####[facility] LAB[facility] [id number] [place] [id number] [place] URINE OB DIP B/Oon Glucose Ql (U) Negative Neg mg/dL [facility] Interpretation and review of laboratory results Normal [facility] Protein.monoclonal (U) [Mass/Vol] Negative Neg mg/dL [facility] Examination level ultrasound on 10-08-2024 [facility] AST(SGOT)on 10-07-2024 AST [Catalytic activity/Vol] 16 U/L Normal <=31 [facility] Comment on above: Performed By: #### L 700.8000 #### [facility] [address] [place], [address] Alanine Aminotransferas (SGP T)on 10-07-2024 ALT [Catalytic activity/Vol] 13 U/L Normal <=34 [facility] Comment on above: Performed By: #### L 700.8000 #### [facility] [address] [place], [address] CBC-Complete Blood Cnt No Di ffon 10-07-2024 Erythrocyte distribution width (RBC) [Ratio] 14.5 % Normal 11.6-14.6 [facility] Comment on above: Performed By: #### L 100.0500, L501.1105, L501.4405, L501.0900, L501.1400, L501.4100 #### [facility] [address] [place], [address] Hematocrit (Bld) [Volume fraction] 38.7 % Normal 37-47 [facility] Comment on above: Performed By: #### L 100.0500, L501.1105, L501.4405, L501.0900, L501.1400, L501.4100 #### [facility] [address] [place], [address] Hemoglobin (Bld) [Mass/Vol] 13.1 g/dL Normal 12.0-15.0 [facility] Comment on above: Performed By: #### L 100.0500, L501.1105, L501.4405, L501.0900, L501.1400, L501.4100 #### [facility] [address] [place], [address] MCH (RBC) [Entitic mass] 27.8 pg Normal 27.0-32.0 [facility] Comment on above: Performed By: #### L 100.0500, L501.1105, L501.4405, L501.0900, L501.1400, L501.4100 #### [facility] [address] [place], [address] MCHC (RBC) [Mass/Vol] 33.9 g/dL Normal 32-36 [facility] Comment on above: Performed By: #### L 100.0500, L501.1105, L501.4405, L501.0900, L501.1400, L501.4100 #### [facility] [address] [place], [address] MCV (RBC) [Entitic vol] 82.0 fL Normal 81-99 [facility] Comment on above: Performed By: #### L 100.0500, L501.1105, L501.4405, L501.0900, L501.1400, L501.4100 #### [facility] [address] [place], [address] Platelet mean volume (Bld) [Entitic vol] 11.1 fL Normal 6.2-12.0 [facility] Comment on above: Performed By: #### L 100.0500, L501.1105, L501.4405, L501.0900, L501.1400, L501.4100 #### [facility] [address] [place], [address] Platelets (Bld) [#/Vol] 306 10*3/uL Normal 150-450 [facility] Comment on above: Performed By: #### L 100.0500, L501.1105, L501.4405, L501.0900, L501.1400, L501.4100 #### [facility] [address] [place], [address] RBC (Bld) [#/Vol] 4.72 10*6/uL Normal 4.2-5.4 [facility] Comment on above: Performed By: #### L 100.0500, L501.1105, L501.4405, L501.0900, L501.1400, L501.4100 #### [facility] [address] [place], [address] RDW SD 42.6 fl Normal 35.1-43.9 [facility] Comment on above: Performed By: #### L 100.0500, L501.1105, L501.4405, L501.0900, L501.1400, L501.4100 #### [facility] [address] [place], [address] WBC (Bld) [#/Vol] 11.0 10*3/uL Normal 4.4-11.0 [facility] Comment on above: Performed By: #### L 100.0500, L501.1105, L501.4405, L501.0900, L501.1400, L501.4100 #### [facility] [address] [place], [address] CNPNon 10-07-2024 [facility] Telephone (OBGYWM) KESHIAALON Marivel ([id number]) 89 F Date Time Provider Department 10/07/24 [...] blurry vision. Advised that patient go to [facility] for evaluation and not wait until her appointment today for BP check. States she could be there in 2.5 hours. 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 Stressed the importance and potential seriousness of an elevated BP. Voiced understanding. Will go to [facility]. Called and notified [facility] nurse. ROSMERY Ca Sara, MD 10/07/2024 11:42 AM Signed Agree with eval for severe range BP's on [facility] thanks Allergies As of Date: 10/07/2024 (No [...] mg cap Take by mouth. - VIT 2-YXXK-LGVMV-DHA ORAL Take by mouth. Problem List As [...] Status:Closed by NIRU RODAS on 10/07/24 Normal [facility] Erythrocyte distribution wid th ratioOrdered By: Darryl Adkins on 10-07-2024 Erythrocyte distribution width (RBC) [Ratio] 14.5 % 11.6-14.6 [facility] Erythrocyte distribution wid th standard deviationOrdered By: Darryl Adkins on 10-07-2024 Erythrocyte distribution width (RBC) [Ratio] 42.6 fl 35.1-43.9 [facility] Examination level ultrasound on 10-07-2024 Radiology Study observation (narrative) [facility] zeina [facility] Glomerular filtration rate ( GFR) estimation/1.73 sq m using serum, plasma, or whole bOrdered By: Darryl Adkins on 10-07-2024 GFR/1.73 sq M.predicted among non-blacks MDRD (S/P/Bld) [Vol rate/Area] 133 mL/min/{1.73_m2} >60 [facility] Comment on above: mL/min/1.73m2 CKD-EP I Creatinine Equation (2020) Hematocrit Auto (Bld) [Volum e fraction]Ordered By: Darryl Adkins on 10-07-2024 Hematocrit (Bld) [Volume fraction] 38.7 % 37-47 [facility] Hemoglobin measurementOrdere d By: Darryl Adkins on 10-07-2024 Hemoglobin (Bld) [Mass/Vol] 13.1 g/dL 12.0-15.0 [facility] - Chemistry and C hemistry - challengeOrdered By: Darryl Adkins on 10-07-2024 AST [Catalytic activity/Vol] 16 U/L <32 [facility] MCV (mean corpuscular volume ) determinationOrdered By: Darryl Adkins on 10-07-2024 MCV (RBC) [Entitic vol] 82.0 fL 81-99 [facility] Mean corpuscular hemoglobin (MCH) determinationOrdered By: Darryl Adkins on 10-07-2024 MCH (RBC) [Entitic mass] 27.8 pg 27.0-32.0 [facility] Mean corpuscular hemoglobin concentration (MCHC) determinationOrdered By: Darryl Adkins on 10-07-2024 MCHC (RBC) [Mass/Vol] 33.9 g/dL 32-36 [facility] Mean platelet volume determi nationOrdered By: Darryl Adkins on 10-07-2024 Platelet mean volume (Bld) [Entitic vol] 11.1 fL 6.2-12.0 [facility] Platelet countOrdered By: Sa ra Adkins on 10-07-2024 Platelets (Bld) [#/Vol] 306 10*3/uL 150-450 [facility] Protein+Creatinine Ratio,Uri neon 10-07-2024 PROT:CRE RATIO 100 mg/g CRE Normal 0-200 [facility] Comment on above: Performed By: #### L 700.8000 #### [facility] [address] [place], [address] Protein (U) [Mass/Vol] 16.5 mg/dL High 0.0-12.0 [facility] Comment on above: Performed By: #### L 700.8000 #### [facility] [address] [place], [address] UR CREAT 165.00 mg/dL Normal 28.00-217.00 [facility] Comment on above: Performed By: #### L 700.8000 #### [facility] [address] [place], [address] RBC Auto (Bld) [#/Vol]Ordere d By: Darryl Adkins on 10-07-2024 RBC (Bld) [#/Vol] 4.72 10*6/uL 4.2-5.4 [facility] Random urine creatinine alexa urement (mass/volume)Ordered By: Darryl Adkins on 10-07-2024 Creatinine Unsp time (U) [Mass/Vol] 165.00 mg/dL 28.00-217.00 [facility] Serum Creatinine AND GFRon 0 10-07-2024 Creatinine [Mass/Vol] 0.52 mg/dL Low 0.70-1.20 [facility] Comment on above: Performed By: #### L 700.8000 #### [facility] [address] [place], [address] ECRCL 232.58 ml/min Normal 50-250 [facility] Comment on above: Performed By: #### L 700.8000 #### [facility] [address] [place], [address] GFR/1.73 sq M.predicted among non-blacks MDRD (S/P/Bld) [Vol rate/Area] 133 mL/min/{1.73_m2} Normal >60 [facility] Comment on above: Result Comment: mL/m in/1.73m2 CKD-EPI Creatinine Equation (2020) Performed By: #### L 700.8000 #### [facility] [address] [place], [address] Serum creatinine measurement (mass/volume)Ordered By: Darryl Adkins on 10-07-2024 Creatinine [Mass/Vol] 0.52 mg/dL Low 0.70-1.20 [facility] Serum or plasma alanine willard otransferase (ALT) measurementOrdered By: Darryl Adkins on 10-07-2024 ALT [Catalytic activity/Vol] 13 U/L <35 [facility] Serum or plasma uric acid me asurement (mass/volume)Ordered By: Darryl Adkins on 10-07-2024 Urate [Mass/Vol] 6.2 mg/dL High 2.6-6.0 [facility] Comment on above: The drugs N-Acetylcy steine and Metamizole may falsely depress this assay. Uric Acidon 10-07-2024 URIC 6.2 mg/dL High 2.6-6.0 [facility] Comment on above: Result Comment: The drugs N-Acetylcysteine and Metamizole may falsely depress this assay. Performed By: #### L 700.8000 #### [facility] [address] [place], [address] Urine protein measurement (m ass/volume)Ordered By: Darryl Adkins on 10-07-2024 Protein (U) [Mass/Vol] 16.5 mg/dL High 0.0-12.0 [facility] Urine protein/creatinine mas s ratioOrdered By: Darryl Adkins on 10-07-2024 Protein/Creatinine (U) [Mass ratio] 100 mg/g CRE 0-200 [facility] White blood cell (WBC) count Ordered By: Darryl Adkins on 10-07-2024 WBC (Bld) [#/Vol] 11.0 10*3/uL 4.4-11.0 [facility] URINE OB DIP B/Oon 5 Glucose Ql (U) Negative Neg mg/dL [facility] Protein.monoclonal (U) [Mass/Vol] Negative Neg mg/dL [facility] URINE OB DIP B/Oon 5 Glucose Ql (U) 500 mg/dL Neg [facility] Interpretation and review of laboratory results Abnormal [facility] Protein.monoclonal (U) [Mass/Vol] Negative Neg mg/dL [facility] Examination level ultrasound on 09-21-2024 [facility] Radiology Study observation (narrative) [facility] OB Triage Physician Noteon 0 09-16-2024 OB Triage Physician Note [facility] Medical Records Department [address] [place] [address] OB Triage Physician Note 09/16/24 1345 MR#: [id number] Acct: [id number] Name: ALON SCHMITT Rep #: [id number] : 2000 23 From: Darryl Adkins DO [...] Surgical History Status post dilation and curettage [place] teeth extracted History of cholecystectomy Social History adopted: No household members: spouse current occupational status: employed current occupation: [employer] current occupational exposures/hazards: No pets and animals: [...] 1-2 times per week duration: 30-45 minutes/day kenyetta/rastafarian: Anabaptism seatbelt use: always do you feel safe at home: Yes 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 PCP notes from [facility] showed elevated BP's. Multiple visits in [facility] show elevated BP's. BP elevated at 7 week gestation. Discussed with patient likely cHTN so start Procardia 30 mg once daily given severe range BP's at work. Discussed warning signs and symptoms of pre e. Follow up in office in 24-48 hours for BP check and bring home BP cuff. 09/16/24 1349 Date [facility] Signature (if applicable): Date _ CC: DANYEL Singh; Dr. Darryl Adkins, DO Signed Normal [facility] 09-15-2024 [facility] Telephone (OBGYWM) ALON SCHMITT ([id number]) 89 F Date Time Provider Department 09/15/24 [place] During your visit today, we recorded the following information about you: Niru Rodas RN 09/15/2024 4:05 PM Signed Received breast pump RX from [facility]. To RR to sign. ROSMERY Ca Jennifer, [...] mg cap Take by mouth. - VIT 7-SXHZ-MJPSV-DHA ORAL Take by mouth. Problem List As [...] Status:Closed by NIRU RODAS on 09/17/24 Normal [facility] AST(SGOT)on 09-13-2024 AST [Catalytic activity/Vol] 15 U/L Normal <=31 [facility] Comment on above: Performed By: #### L 700.6108 #### [facility] [address], [address] Alanine Aminotransferas (SGP T)on 09-13-2024 ALT [Catalytic activity/Vol] 14 U/L Normal <=34 [facility] Comment on above: Performed By: #### L 700.8000 #### [facility] [address] [place], [address] CBC-Complete Blood Cnt No Di ffon 09-13-2024 Erythrocyte distribution width (RBC) [Ratio] 14.3 % Normal 11.6-14.6 [facility] Comment on above: Performed By: #### L 700.8000 #### [facility] [address] [place], [address] Hematocrit (Bld) [Volume fraction] 39.0 % Normal 37-47 [facility] Comment on above: Performed By: #### L 700.8000 #### [facility] [address] [place], [address] Hemoglobin (Bld) [Mass/Vol] 13.2 g/dL Normal 12.0-15.0 [facility] Comment on above: Performed By: #### L 700.8000 #### [facility] [address] [place], [address] MCH (RBC) [Entitic mass] 27.7 pg Normal 27.0-32.0 [facility] Comment on above: Performed By: #### L 700.8000 #### [facility] [address] [place], [address] MCHC (RBC) [Mass/Vol] 33.8 g/dL Normal 32-36 [facility] Comment on above: Performed By: #### L 700.8000 #### [facility] [address] [place], [address] MCV (RBC) [Entitic vol] 81.9 fL Normal 81-99 [facility] Comment on above: Performed By: #### L 700.8000 #### [facility] [address] [place], [address] Platelet mean volume (Bld) [Entitic vol] 10.6 fL Normal 6.2-12.0 [facility] Comment on above: Performed By: #### L 700.8000 #### [facility] [address] [place], [address] Platelets (Bld) [#/Vol] 300 10*3/uL Normal 150-450 [facility] Comment on above: Performed By: #### L 700.8000 #### [facility] [address] [place], [address] RBC (Bld) [#/Vol] 4.76 10*6/uL Normal 4.2-5.4 [facility] Comment on above: Performed By: #### L 700.8000 #### [facility] [address] [place], [address] RDW SD 41.8 fl Normal 35.1-43.9 [facility] Comment on above: Performed By: #### L 700.8000 #### [facility] [address] [place], [address] WBC (Bld) [#/Vol] 12.0 10*3/uL High 4.4-11.0 [facility] Comment on above: Performed By: #### L 700.8000 #### [facility] [address] [place], [address] [facility] AL[facility] SCHM[facility] ([id number]) 89 F Date Time Provider Department 09/13/24 [...] Rodas RN 09/14/2024 9:43 AM Signed See [employer] message. Patient coming in today for BP [...] mg cap Take by mouth. - VIT 2-ECQQ-ROTNV-DHA ORAL Take by mouth. Problem List As [...] Status:Closed by DARRYL ADKINS on 09/13/24 Normal [facility] Erythrocyte distribution wid th ratioOrdered By: Darryl Adkins on 09-13-2024 Erythrocyte distribution width (RBC) [Ratio] 14.3 % 11.6-14.6 [facility] Erythrocyte distribution wid th standard deviationOrdered By: Darryl Adkins on 09-13-2024 Erythrocyte distribution width (RBC) [Ratio] 41.8 fl 35.1-43.9 [facility] Glomerular filtration rate ( GFR) estimation/1.73 sq m using serum, plasma, or whole bOrdered By: Darryl Adkins on 09-13-2024 GFR/1.73 sq M.predicted among non-blacks MDRD (S/P/Bld) [Vol rate/Area] 139 mL/min/{1.73_m2} >60 [facility] Comment on above: mL/min/1.73m2 CKD-EP I Creatinine Equation (2020) Hematocrit Auto (Bld) [Volum e fraction]Ordered By: Darryl Adkins on 09-13-2024 Hematocrit (Bld) [Volume fraction] 39.0 % 37-47 [facility] Hemoglobin measurementOrdere d By: Darryl Adkins on 09-13-2024 Hemoglobin (Bld) [Mass/Vol] 13.2 g/dL 12.0-15.0 [facility] Laboratory - Chemistry and C hemistry - challengeOrdered By: Darryl Adkins on 09-13-2024 AST [Catalytic activity/Vol] 15 U/L <32 [facility] MCV (mean corpuscular volume ) determinationOrdered By: Darryl Adkins on 09-13-2024 MCV (RBC) [Entitic vol] 81.9 fL 81-99 [facility] Mean corpuscular hemoglobin (MCH) determinationOrdered By: Darryl Adkins on 09-13-2024 MCH (RBC) [Entitic mass] 27.7 pg 27.0-32.0 [facility] Mean corpuscular hemoglobin concentration (MCHC) determinationOrdered By: Darryl Adkins on 09-13-2024 MCHC (RBC) [Mass/Vol] 33.8 g/dL 32-36 [facility] Mean platelet volume determi nationOrdered By: Darryl Adkins on 09-13-2024 Platelet mean volume (Bld) [Entitic vol] 10.6 fL 6.2-12.0 [facility] Platelet countOrdered By: Sa ra Adkins on 09-13-2024 Platelets (Bld) [#/Vol] 300 10*3/uL 150-450 [facility] Protein+Creatinine Ratio,Uri neon 09-13-2024 PROT:CRE RATIO 107 mg/g CRE Normal 0-200 [facility] Comment on above: Performed By: #### L 700.8000 #### [facility] [address] [place], [address] Protein (U) [Mass/Vol] 10.2 mg/dL Normal 0.0-12.0 [facility] Comment on above: Performed By: #### L 700.8000 #### [facility] [address] [place], [address] UR CREAT 95.40 mg/dL Normal 28.00-217.00 [facility] Comment on above: Performed By: #### L 700.8000 #### [facility] [address] [place], [address] RBC Auto (Bld) [#/Vol]Ordere d By: Darryl Adkins on 09-13-2024 RBC (Bld) [#/Vol] 4.76 10*6/uL 4.2-5.4 [facility] Random urine creatinine alexa urement (mass/volume)Ordered By: Darryl Adkins on 09-13-2024 Creatinine Unsp time (U) [Mass/Vol] 95.40 mg/dL 28.00-217.00 [facility] Serum Creatinine AND GFRon 0 09-13-2024 Creatinine [Mass/Vol] 0.43 mg/dL Low 0.70-1.20 [facility] Comment on above: Performed By: #### L 700.8000 #### [facility] [address] [place], [place], [address] GFR/1.73 sq M.predicted among non-blacks MDRD (S/P/Bld) [Vol rate/Area] 139 mL/min/{1.73_m2} Normal >60 [facility] Comment on above: Result Comment: mL/m in/1.73m2 CKD-EPI Creatinine Equation (2020) Performed By: #### L 700.8000 #### [facility] [address] [place], [address] Serum creatinine measurement (mass/volume)Ordered By: Darryl Adkins on 09-13-2024 Creatinine [Mass/Vol] 0.43 mg/dL Low 0.70-1.20 [facility] Serum or plasma alanine willard otransferase (ALT) measurementOrdered By: Darryl Adkins on 09-13-2024 ALT [Catalytic activity/Vol] 14 U/L <35 [facility] Serum or plasma uric acid me asurement (mass/volume)Ordered By: Darryl Adkins on 09-13-2024 Urate [Mass/Vol] 5.0 mg/dL 2.6-6.0 [facility] Comment on above: The drugs N-Acetylcy steine and Metamizole may falsely depress this assay. Uric Acidon 09-13-2024 URIC 5.0 mg/dL Normal 2.6-6.0 [facility] Comment on above: Result Comment: The drugs N-Acetylcysteine and Metamizole may falsely depress this assay. Performed By: #### L 700.8000, B882-1, L100.0100 #### [facility] [address] [place], [place], [address] Urine protein measurement (m ass/volume)Ordered By: Darryl Adkins on 09-13-2024 Protein (U) [Mass/Vol] 10.2 mg/dL 0.0-12.0 [facility] Urine protein/creatinine mas s ratioOrdered By: Darryl Adkins on 09-13-2024 Protein/Creatinine (U) [Mass ratio] 107 mg/g CRE 0-200 [facility] White blood cell (WBC) count Ordered By: Darryl Adkins on 09-13-2024 WBC (Bld) [#/Vol] 12.0 10*3/uL High 4.4-11.0 [facility] Examination level ultrasound on 08-27-2024 [facility] Radiology Study observation (narrative) Shilo moy [facility] CNPDhara 08-26-2024 CNPN Telephone (OBGYWM) ALON SCHMITT ([id number]) 89 F Date Time Provider Department 08/26/24 [...] in third trimester (HCC) [O99.213] Order(s):OBSTETRIC ULTRASOUND [facility] [[id number]] Order #: [id number]: 1 FUTURE Prescriptions as of 08/27/2024 - pyridoxine HCl, vitamin B6, (VITAMIN B-6 ORAL) Take by mouth. - aspirin 81 mg cap Take by mouth. - VIT 9-OZLK-XZMPQ-DHA ORAL Take by mouth. Problem List As [...] Status:Closed by BELEN CRENSHAW on 08/27/24 Normal [facility] Examination level ultrasound on 08-18-2024 Indication [...] By: Luz Elena Laguna M.D. MATERNAL MEDICINE [facility] Arnie 08-17-2024 CONNIE Telephone (SANDRA) ALON SCHMITT ([id number]) 89 F Date Time Provider Department 08/17/24 FABIENNE DEL CID During your visit today, we recorded the following information about you: Fabienne Del Cid LGC 08/19/2024 1:59 PM Addendum Called Mrs. Schmitt to discuss the results of her standard 14 condition carrier screening. Disclosed that Mrs. Schimtt was not identified as a carrier of [...] Encouraged Mrs. Schmitt to reach me via [employer] or at my direct office line ([phone]) if she has any questions or concerns in the future. Fabienne Del Cid MS, [facility] [place] Licensed, Certified Genetic Counselor [...] Encouraged Mrs. Schmitt to reach me via [employer] or at my direct office line ([phone]) if she has any questions or concerns in the future. Fabienne Del Cid MS, [facility] [place] Licensed, Certified Genetic Counselor Allergies As of Date: 08/17/2024 (No Known Allergies) Date Reviewed: 08/17/2024 Reviewed by: Rachel Whatley MD - Fully Assessed Reason for Visit: carrier screening results [Other] Prescriptions as of 08/19/2024 - pyridoxine HCl, vitamin B6, (VITAMIN B-6 ORAL) Take by mouth. - aspirin 81 mg cap Take by mouth. - VIT 4-YXNT-RXJML-DHA ORAL Take by mouth. Problem List As [...] by FABIENNE DEL CID on 08/17/24 Normal [facility] Examination level ultrasound on 08-10-2024 Radiology Study observation (narrative) Shilo moy [facility] Arnie 08-05-2024 CNPN Telephone (OBGYWM) ALON SCHMITT ([id number]) 89 F Date Time Provider Department 08/05/24 DARRYL ADKINS OBGYWM During your visit today, we recorded the following information about you: Belen Crenshaw RN 08/05/2024 4:14 PM Signed [facility]: Appt with Fabienne Del Cid [facility] on 08/03/24 added to record. Belen Crenshaw [...] mg cap Take by mouth. - VIT 4-GPAO-JCABC-DHA ORAL Take by mouth. Problem List As Of Date 08/05/2024 Noted Resolved Supervision of high risk in second tr*03/22/2024 Obesity affecting in second trimester*03/22/2024 Anxiety [F41.9] 03/22/2024 History of depression [Z86.59] 03/22/2024 Single umbilical artery affecting management of*06/24/2024 abnormality affecting management of mothe*07/06/2024 Encounter Status:Closed by BELEN CRENSHAW on 08/05/24 Normal [facility] CARRIER SCREEN, STANDARDon 0 08-03-2024 CARRIER SCREEN RESULTS View results in Scanned Documents link when available. Normal [facility] Comment on above: Order Comment: Speci men Type: BLOOD SPECIMENOrdering Facility: [facility] Address: [address] [place] [address] Performed By: #### C RRSCN ####MYRIADCLIA [id number] [place] [address] GESTATIONAL GLUCOSE SCREEN, 1-HOUR, 50 GRAM, NON-FASTINGon 08-03-2024 Glucose [Mass/Vol] 129 mg/dL Normal 74-134 [facility] Comment on above: Order Comment: Speci men Type: BLOOD SPECIMENOrdering Facility: [facility] Address: [address] [place] [address] Result Comment: er [facility] Congress of Obstetricians and Gynecologists (Rubi/Liss) guidelines state a gestational diabetes mellitus positive screen is made, in women not previously diagnosed with overt diabetes, when the 1 hr plasma glucose level is equal to or above 140 mg/dL. [facility] [employer] and [facility] recommends a 135 mg/dL cutoff. Performed By: #### G LTGST ####[facility] [id number] [place] [address] [place] Prot/Creat Uron 08-03-2024 Protein/Creatinine (U) [Mass ratio] 0.06 mg/mg Normal <0.15 [facility] Comment on above: Order Comment: Speci men Type: URINE SPECIMENOrdering Facility: [facility] Address: [address] [place] [address] Result Comment: Adul t Proteinuria Categories: <0.15 mg/mg is considered normal to mildly increased 0.15 - 0.50 mg/mg is considered moderately increased >0.50 mg/mg is considered severely increased KDIGO. (2013). KDIGO 2012 Clinical Practice Guideline for the Evaluation and Management of Chronic Kidney Disease. Official Journal of the International Society of Nephrology, 3(1), 1-150. Performed By: #### 2 890-2 ####[facility] LABIA [id number] [place] [id number] [place] Protein/Creatinine (U) [Mass ratio]on 08-03-2024 Creatinine (U) [Mass/Vol] 144.4 mg/dL Normal 20.0-300.0 [facility] Comment on above: Order Comment: Speci men Type: URINE SPECIMENOrdering Facility: [facility] Address: [address] [place] [address] Performed By: #### 2 890-2 ####[facility] [id number] [place] [id number] [place] Protein (U) [Mass/Vol] 9 mg/dL Normal 0-20 [facility] Comment on above: Order Comment: Speci men Type: URINE SPECIMENOrdering Facility: [facility] Address: [address] [place] [address] Performed By: #### 2 890-2 ####[facility] [id number] [place] [id number] [place] CNPDhara 07-30-2024 CONNIE Telephone (OZGY) ALON SCHMITT ([id number]) 89 F Date Time Provider Department 07/30/24 [...] panel results stating [facility] and read as abnormal. From note on JG 06/24/24, states Pt needs NSTs q4 weeks. However, no order placed. Pt is seeing MFM for Single umbilical artery. Assisted Pt with getting another US scheduled in office with OB appt following. Does Pt need NSTs u9pvntl? Please advise. ROSMERY Webster Courtney, APRN.CLAIRE 07/30/2024 [...] mg cap Take by mouth. - VIT 0-MOZC-HQNIJ-DHA ORAL Take by mouth. Problem List As Of Date 07/30/2024 Noted Resolved Supervision of high risk in second tr*03/22/2024 Obesity affecting in second trimester*03/22/2024 Anxiety [F41.9] 03/22/2024 History of depression [Z86.59] 03/22/2024 Single umbilical artery affecting management of*06/24/2024 abnormality affecting management of mothe*07/06/2024 Encounter Status:Closed by DEB RICHARD on 07/30/24 [facility] Arnie 07-29-2024 CNPN Telephone ([facility]) ALON SCHMITT ([id number]) 89 Date Time Provider Department 07/29/24 NEMO THOMPSON [facility] During your visit today, we recorded the following information about you: Nemo Thompson, RN 07/29/2024 11:20 AM Signed Call to Alon at the request of Dr. Ricci to introduce myself as manager managed care and the [facility]. I let Alon [...] penis. We discussed having her come to [facility] for follow up Ultrasound and [...] mg cap Take by mouth. - VIT 5-ECVF-FKFWP-DHA ORAL Take by mouth. Problem List As Of Date 07/29/2024 Noted Resolved Supervision of high risk in second tr*03/22/2024 Obesity affecting in second trimester*03/22/2024 Anxiety [F41.9] 03/22/2024 History of depression [Z86.59] 03/22/2024 Single umbilical artery affecting management of*06/24/2024 abnormality affecting management of mothe*07/06/2024 Encounter Status:Closed by NEMO THOMPSON on 07/29/24 Normal [facility] CBC W Auto Differential pane l (Bld)on 07-27-2024 Basophils (Bld) [#/Vol] 0.04 10*3/uL Normal <0.11 [facility] Comment on above: Order Comment: Speci men Type: BLOOD SPECIMENOrdering Facility: [facility] Address: [address] [place] [address] Performed By: #### 5 7021-8 ####[facility] [id number] [place] [id number] [place] Basophils/100 WBC (Bld) 0.3 % Normal [facility] Comment on above: Order Comment: Speci men Type: BLOOD SPECIMENOrdering Facility: [facility] Address: [address] [place] [address] Performed By: #### 5 7021-8 ####[facility] [id number] [place] [address] [place] Differential cell count method Nom (Bld) Auto Normal [facility] Comment on above: Order Comment: Speci men Type: BLOOD SPECIMENOrdering Facility: [facility] Address: [address] [place] [address] Performed By: #### 5 7021-8 ####[facility] [id number] [place] [address] [place] Eosinophils (Bld) [#/Vol] 0.09 10*3/uL Normal <0.46 [facility] Comment on above: Order Comment: Speci men Type: BLOOD SPECIMENOrdering Facility: [facility] Address: [address] [place] [address] Performed By: #### 5 7021-8 ####[facility] [id number] [place] [address] [place] Eosinophils/100 WBC (Bld) 0.7 % Normal [facility] Comment on above: Order Comment: Speci men Type: BLOOD SPECIMENOrdering Facility: [facility] Address: [address] [place] [address] Performed By: #### 5 7021-8 ####[facility] [id number] [place] [address] [place] Erythrocyte distribution width (RBC) [Ratio] 14.2 % Normal 11.5-15.0 [facility] Comment on above: Order Comment: Speci men Type: BLOOD SPECIMENOrdering Facility: [facility] Address: [address] [place] [address] Performed By: #### 5 7021-8 ####[facility]ITALNCA [id number] [place] [address] [place] Hematocrit (Bld) [Volume fraction] 40.3 % Normal 36.0-46.0 [facility] Comment on above: Order Comment: Speci men Type: BLOOD SPECIMENOrdering Facility: [facility] Address: [address] [place] [address] Performed By: #### 5 7021-8 ####[facility] [id number] [place] [address] [place] Hemoglobin (Bld) [Mass/Vol] 13.8 g/dL Normal 11.5-15.5 [facility] Comment on above: Order Comment: Speci men Type: BLOOD SPECIMENOrdering Facility: [facility] Address: [address] [place] [address] Performed By: #### 5 7021-8 ####[facility] [id number] [place] [address] [place] Immature granulocytes (Bld) [#/Vol] 0.17 10*3/uL High <0.10 [facility] Comment on above: Order Comment: Speci men Type: BLOOD SPECIMENOrdering Facility: [facility] Address: [address] [place] [address] Performed By: #### 5 7021-8 ####[facility]ITALNCLIA [id number] [place] [address] [place] Immature granulocytes/100 WBC (Bld) 1.3 % Normal [facility] Comment on above: Order Comment: Speci men Type: BLOOD SPECIMENOrdering Facility: [facility] Address: [address] [place] [address] Performed By: #### 5 7021-8 ####[facility]ITALNCLIA [id number] [place] [address] [place] Lymphocytes (Bld) [#/Vol] 1.55 10*3/uL Normal 1.00-4.00 [facility] Comment on above: Order Comment: Speci men Type: BLOOD SPECIMENOrdering Facility: [facility] Address: [address] [place] [address] Performed By: #### 5 7021-8 ####[facility] JIMROBERTO [id number] [place] [address] [place] Lymphocytes/100 WBC (Bld) 12.2 % Normal [facility] Comment on above: Order Comment: Speci men Type: BLOOD SPECIMENOrdering Facility: [facility] Address: [address] [place] [address] Performed By: #### 5 7021-8 ####[facility] HOSPITALNCTHERESA [id number] [place] [address] [place] MCH (RBC) [Entitic mass] 27.9 pg Normal 26.0-34.0 [facility] Comment on above: Order Comment: Speci men Type: BLOOD SPECIMENOrdering Facility: [facility] Address: [address] [place] [address] Performed By: #### 5 7021-8 ####[facility] HOSPITALNCTim [id number] [place] [address] [place] MCHC (RBC) [Mass/Vol] 34.2 g/dL Normal 30.5-36.0 Darci [facility] Comment on above: Order Comment: Speci men Type: BLOOD SPECIMENOrdering Facility: [facility] Address: [address] [place] [address] Performed By: #### 5 7021-8 ####[facility]ITALNCLI [id number] [place] [address] [place] MCV (RBC) [Entitic vol] 81.6 fL Normal 80.0-100.0 [facility] Comment on above: Order Comment: Speci men Type: BLOOD SPECIMENOrdering Facility: [facility] Address: [address] [place] [address] Performed By: #### 5 7021-8 ####[facility] MILLWNCLIA [id number] [place] [address] [place] Monocytes (Bld) [#/Vol] 0.60 10*3/uL Normal <0.87 [facility] Comment on above: Order Comment: Speci men Type: BLOOD SPECIMENOrdering Facility: [facility] Address: [address] [place] [address] Performed By: #### 5 7021-8 ####[facility] [id number] [place] [address] [place] Monocytes/100 WBC (Bld) 4.7 % Normal [facility] Comment on above: Order Comment: Speci men Type: BLOOD SPECIMENOrdering Facility: [facility] Address: [address] [place] [address] Performed By: #### 5 7021-8 ####[facility] [id number] [place] [address] [place] Neutrophils (Bld) [#/Vol] 10.26 10*3/uL High 1.45-7.50 [facility] Comment on above: Order Comment: Speci men Type: BLOOD SPECIMENOrdering Facility: [facility] Address: [address] [place] [address] Performed By: #### 5 7021-8 ####[facility] [id number] [place] [address] [place] Neutrophils/100 WBC (Bld) 80.8 % Normal [facility] Comment on above: Order Comment: Speci men Type: BLOOD SPECIMENOrdering Facility: [facility] Address: [address] [place] [address] Performed By: #### 5 7021-8 ####[facility]ALL[facility] [id number] [place] [address] [place] Nucleated RBC (Bld) [#/Vol] 10*3/uL Normal <0.01 [facility] Comment on above: Order Comment: Speci men Type: BLOOD SPECIMENOrdering Facility: [facility] Address: [address] [place] [address] Performed By: #### 5 7021-8 ####[facility] [id number] [place] [address] [place] Nucleated RBC/100 WBC (Bld) [Ratio] 0.0 /100 WBC Normal [facility] Comment on above: Order Comment: Speci men Type: BLOOD SPECIMENOrdering Facility: [facility] Address: [address] [place] [address] Performed By: #### 5 7021-8 ####[facility] [id number] [place] [address] [place] Platelet mean volume (Bld) [Entitic vol] 10.3 fL Normal 9.0-12.7 [facility] Comment on above: Order Comment: Speci men Type: BLOOD SPECIMENOrdering Facility: [facility] Address: [address] [place] [address] Performed By: #### 5 7021-8 ####[facility] [id number] [place] [address] [place] Platelets (Bld) [#/Vol] 278 10*3/uL Normal 150-400 [facility] Comment on above: Order Comment: Speci men Type: BLOOD SPECIMENOrdering Facility: [facility] Address: [address] [place] [address] Performed By: #### 5 7021-8 ####[facility]OS[facility]ITALA [id number] [place] [address] [place] RBC (Bld) [#/Vol] 4.94 10*6/uL Normal 3.90-5.20 [facility] Comment on above: Order Comment: Speci men Type: BLOOD SPECIMENOrdering Facility: [facility] Address: [facility] [place] [address] Performed By: #### 5 7021-8 ####[facility] JOHN FERNANDEZOAK RIDGENCLITim [id number] [address] OF [facility] WBC (Bld) [#/Vol] 12.71 10*3/uL High 3.70-11.00 [facility] Comment on above: Order Comment: Speci men Type: BLOOD SPECIMENOrdering Facility: [facility] Address: [address] [place] [address] Performed By: #### 5 7021-8 ####[facility] HOSPITALNCTim [id number] [address] Comprehensive metabolic 2000 panelOrdered By: Suri Hughes on 07-27-2024 Albumin [Mass/Vol] 4 g/dL 3.9 - 4.9 g/dL [facility] ALP [Catalytic activity/Vol] 66 U/L 34 - 123 U/L [facility] ALT [Catalytic activity/Vol] 11 U/L 7 - 38 U/L [facility] Anion gap [Moles/Vol] 10 mmol/L 8 - 15 mmol/L [facility] AST [Catalytic activity/Vol] 8 U/L Low 13 - 35 U/L [facility] Bilirubin [Mass/Vol] 0.2 mg/dL 0.2 - 1 .3 mg/dL [facility] Calcium [Mass/Vol] 9.6 mg/dL 8.5 - 10. 2 mg/dL [facility] Chloride [Moles/Vol] 103 mmol/L 98 - 10 7 mmol/L [facility] CO2 [Moles/Vol] 24 mmol/L 22 - 30 mmol/L [facility] Creatinine [Mass/Vol] 0.45 mg/dL Low 0.58 - 0.96 mg/dL [facility] GFR/1.73 sq M.predicted among non-blacks MDRD (S/P/Bld) [Vol rate/Area] 138 mL/min/{1.73_m2} - PINF [facility] Comment on above: Estimated Glomerular Filtration Rate [...] 101 mg/dL High 74 - 99 mg/dL [facility] Comment on above: The [place] [employer] [...] Interpretation and review of laboratory results Abnormal [facility] Potassium [Moles/Vol] 3.8 mmol/L 3.7 - 5.1 mmol/L [facility] Protein [Mass/Vol] 7.2 g/dL 6.3 - 8.0 g/dL [facility] Sodium [Moles/Vol] 137 mmol/L 136 - 144 mmol/L [facility] Urea nitrogen [Mass/Vol] 8 mg/dL 7 - 21 mg/d L [facility] Comprehensive metabolic 2000 panelon 07-27-2024 Albumin [Mass/Vol] 4.0 g/dL Normal 3.9-4.9 [facility] Comment on above: Order Comment: Speci men Type: BLOOD SPECIMEN [facility] Address: [address] [place] [address] Performed By: #### 2 4323-8, 3084-1 #### [facility] CLIA [id number] [address] [place] [address] [place] ALP [Catalytic activity/Vol] 66 U/L Normal 34-123 [facility] Comment on above: Order Comment: Speci men Type: BLOOD SPECIMEN [facility] Address: [address] [place] [address] Performed By: #### 2 4323-8, 3083- #### [facility] CLIA [id number] [address] [place] [address] [place] ALT [Catalytic activity/Vol] 11 U/L Normal 7-38 [facility] Comment on above: Order Comment: Speci men Type: BLOOD SPECIMEN [facility] Address: [address] [place] [address] Performed By: #### 2 4323-8, 3083-04 #### [facility] CLIA [id number] [address] [place] [address] [place] Anion gap [Moles/Vol] 10 mmol/L Normal 8-15 [facility] Comment on above: Order Comment: Speci men Type: BLOOD SPECIMEN [facility] Address: [address] [place] [address] Performed By: #### 2 4323-8, 3083-04 #### [facility] CLIA [id number] [address] [place] [address] [place] AST [Catalytic activity/Vol] 8 U/L Low 13-35 [facility] Comment on above: Order Comment: Speci men Type: BLOOD SPECIMEN [facility] Address: [address] [place] [address] Performed By: #### 2 4323-8, 3083-04 #### [facility] CLIA [id number] [address] [place] [address] [place] Bilirubin [Mass/Vol] 0.2 mg/dL Normal 0.2-1.3 [facility] Comment on above: Order Comment: Speci men Type: BLOOD SPECIMEN [facility] Address: [address] [facility] [id number] Performed By: #### 2 4323-8, 3083- #### [facility] CLIA [id number] [address] [place] [address] [place] Calcium [Mass/Vol] 9.6 mg/dL Normal 8.5-10.2 [facility] Comment on above: Order Comment: Speci men Type: BLOOD SPECIMEN [facility] Address: [address] [facility] [place] [id number] Performed By: #### 2 4323-8, 3083- #### [facility] CLIA [id number] [address] [place] [address] [place] Chloride [Moles/Vol] 103 mmol/L Normal 98-107 [facility] Comment on above: Order Comment: Speci men Type: BLOOD SPECIMEN [facility] Address: [place] [address] Performed By: #### 2 4323-8, 3083-04 #### [facility] CLIA [id number] [address] [place] [address] [place] CO2 [Moles/Vol] 24 mmol/L Normal 22-30 [facility] Comment on above: Order Comment: Speci men Type: BLOOD SPECIMEN [facility] Address: [address] [place] [address] Performed By: #### 2 4323-8, 3083-04 #### [facility] CLIA [id number] [address] [place] [address] [place] Creatinine [Mass/Vol] 0.45 mg/dL Low 0.58-0.96 [facility] Comment on above: Order Comment: Speci men Type: BLOOD SPECIMEN [facility] Address: [address] [facility] [place] [address] Performed By: #### 2 4323-8, 3083- #### [facility] [id number] [address] [place] [address] [place] Creatinine and Glomerular filtration rate.predicted panel (S/P/Bld) 138 mL/min/1.73m??? Normal >=60 [facility] Comment on above: Order Comment: Louie san Type: BLOOD SPECIMEN [facility] Address: [address] [place] [address] Result Comment: Swati mated Glomerular Filtration Rate [...] Performed By: #### 2 4323-8, 308-1 #### [facility] [id number] [address] [place] [address] [place] Glucose [Mass/Vol] 101 mg/dL High 74-99 [facility] Comment on above: Order Comment: Louie san Type: BLOOD SPECIMEN [facility] Address: [address] [place] [address] Result Comment: The [place] [employer] (ADA) [...] #### 2 4323-8, 308-1 #### [facility] [id number] [address] [place] [address] [place] Potassium [Moles/Vol] 3.8 mmol/L Normal 3.7-5.1 [facility] Comment on above: Order Comment: Speci men Type: BLOOD SPECIMEN [facility] Address: [address] [place] [address] Performed By: #### 2 4323-8, 3084-1 #### [facility] CLIA [id number] [address] [place] [address] [place] Protein [Mass/Vol] 7.2 g/dL Normal 6.3-8.0 [facility] Comment on above: Order Comment: Speci men Type: BLOOD SPECIMEN [facility] Address: [address] [place] [address] Performed By: #### 2 4323-8, 3083-1 #### [facility] CLIA [id number] [address] [place] [address] [place] Sodium [Moles/Vol] 137 mmol/L Normal 136-144 [facility] Comment on above: Order Comment: Speci men Type: BLOOD SPECIMEN [facility] Address: [address] [place] [address] Performed By: #### 2 4323-8, 3084-1 #### [facility] CLIA [id number] [address] [place] [address] [place] Urea nitrogen [Mass/Vol] 8 mg/dL Normal 7-21 [facility] Comment on above: Order Comment: Speci men Type: BLOOD SPECIMEN [facility] Address: [address] [place] [address] Performed By: #### 2 4323-8, 3084-1 #### [facility] CLIA [id number] [address] [place] [address] [place] Examination level ultrasound on 07-27-2024 [facility] Radiology Study observation (narrative) [facility] No Panel InformationOrdered By: Suri Hughes on 07-27-2024 [facility] Reagin and Treponema pallidu m IgG and IgM [Interp]on 07-27-2024 T. pallidum IgG+IgM IA Ql (S) Non-Reactive Normal Nonreactive [facility] Comment on above: Order Comment: Speci men Type: BLOOD SPECIMENOrdering Facility: [facility] Address: [address] [place] [address] Performed By: #### 7 3752-8 ####[facility] LABCLIA [id number] [address] [address] [place] Reagin+T pallidum IgG+IgM Se rPl-Impon 07-27-2024 Reagin and Treponema pallidum IgG and IgM [Interp] Cannot exclude recent Treponemal infection if specimen collected within 7-10 days after appearance of suspect lesions or 2-3 weeks after an exposure. Clinical correlation is required. Normal [facility] Comment on above: Order Comment: Speci men Type: BLOOD SPECIMENOrdering Facility: [facility] Address: [address] [place] [address] Performed By: #### 7 3752-8 ####[facility] LABIA [id number] [address] [address] [place] URIC ACIDon 07-27-2024 Urate [Mass/Vol] 6.2 mg/dL 2.5 - 6.6 mg/dL [facility] Urate SerPl-mCncon Urate [Mass/Vol] 6.2 mg/dL Normal 2.5-6.6 [facility] Comment on above: Order Comment: Louie san Type: BLOOD SPECIMEN [facility] Address: [address] [place] [address] Performed By: #### 2 4323-8, 3084-1 #### [facility] CLIA [id number] [address] [place] [id number] [place] Urate [Mass/Vol]on Interpretation and review of laboratory results Normal [facility] FETALon 07-06-2024 + --------+-+ Pediatric Cardiology Echocardiogram Report + --------+-+ NAME: MRS. ALON SCHMITT : 2000 PT ID#: [id number] Age: 23 years Sex: F STUDY DATE: 07/06/2024 9:07:18 AM LUIS: 11/08/2024 GA: 22w1d Image Quality: Technically difficult and adequate. Referring Physician: Niru Harrington Diagnosing Physician: Meli Anne MD Commercial Loan Reviewer: Franci Metz [facility] 2nd Commercial Loan Reviewer: Diagnosis: [id number] abnormality and damage, single fetus or unspecified Procedure Code: 33592, 08727, 63033 Echo, Complete (w/Doppler and color) Exam Location: [facility] (). Indications: Evaluate cardiac anatomy and function [...] on 07/06/2024 at 10:08:32 AM Final CC [employer] Image : [id number] ID See Link below for Image Normal [facility] Examination level ultrasound on 06-24-2024 Indication [...] 14 oz EFW by: Hadlock (HC-AC-FL) Extended [employer] Secretary 5.6 mm CM 5.5 mm 65% Nicolaides [...] LVOT view: suboptimally visualized 3-vessel view: normal 7-crypca-fpcqfpa view: normal Heart / Thorax Situs: situs [...] Transabdomin (more content not included)... MATERNAL MEDICINE [facility] Radiology Study observation (narrative) [facility] [id number] 05-24-2024 [id number] Called Alon and discussed symptoms. Rx sent for Amoxicillin. Pharmacy verified. Discussed signs and symptoms warranting follow up in the office- verbalized understanding. Normal [facility] [id number] PLUSon 04-29-2024 Cell-free DNA./Cell-free DNA.total Dosage of chromosome-specific cfDNA (cfDNA) [Molar fraction] 8% Normal [facility] Comment on above: Order Comment: Speci men Type: BLOOD SPECIMENOrdering Facility: [facility] Address: [address] [place] [address] Performed By: #### M AT21 ####[employer] LABCLIA [id number] [place] [address] Chr 13+18+21+X+Y aneuploidy Dosage of chromosome-specific cfDNA Ql (cfDNA) Negative Normal [facility] Comment on above: Order Comment: Speci men Type: BLOOD SPECIMENOrdering Facility: [facility] Address: [address] [place] [address] Performed By: #### M AT21 ####[employer] LABCLIA [id number] [place] [address] Chr 21 trisomy Dosage of chromosome-specific cfDNA Ql (cfDNA) Negative Normal [facility] Comment on above: Order Comment: Speci men Type: BLOOD SPECIMENOrdering Facility: [facility] Address: [address] [place] [address] Performed By: #### M AT21 ####[employer] LABCLIA [id number] [place] [address] Chr X and Y aneuploidy risk Sequencing Ql (cfDNA) [Interp] Not detected Normal [facility] Comment on above: Order Comment: Speci men Type: BLOOD SPECIMENOrdering Facility: [facility] Address: [address] [place] [address] Result Comment: Not Detected Not Detected Performed By: #### M AT21 ####[employer] LABCLIA [id number] [place] [phone] Citation Christian (Reference lab test) Comment Normal [facility] Comment on above: Order Comment: Speci men Type: BLOOD SPECIMENOrdering Facility: [facility] Address: [address] [place] [address] Result Comment: 1. P lisa MYRICK, et al. Amanda Med. 2012;14(3):296-305. 2. Bindu ROMAN et al. Prenat Diag. 2013;33(6):591-597. 3. Anthony C, et al. Clin Chem. 2015 Apr;61(4):608-616. 4. Margaret MYRICK et al. Amanda Med. 2011;13(11):913-920. 5. ACOG/SMFM Practice Bulletin No. 226, Jan 2020. Performed By: #### M AT21 ####[employer] LABCLIA [id number] [place] [phone] Gestational age Estimated from conception date Stevens Normal [facility] Comment on above: Order Comment: Speci men Type: BLOOD SPECIMENOrdering Facility: [facility] Address: [address] [place] [address] Performed By: #### M AT21 ####[employer] LABCLIA [id number] [place] [address] GESTATIONALAGE AGE > OR = 9W Yes Normal [facility] Comment on above: Order Comment: Speci men Type: BLOOD SPECIMENOrdering Facility: [facility] Address: [address] [place] [address] Performed By: #### M AT21 ####[employer] LABCLIA [id number] [place] [phone] Laboratory comment Christian (Report) Comment Normal [facility] Comment on above: Order Comment: Speci men Type: BLOOD SPECIMENOrdering Facility: [facility] Address: [address] [place] [address] Result Comment: The MaterniT(R) 21 PLUS laboratory-developed test (LDT) analyzes circulating cell-free DNA from a maternal blood sample. This test is used for screening purposes and not diagnostic. Clinical correlation is recommended. Validation data on twin pregnancies is limited and the ability of this test to detect aneuploidy in higher multiple gestations has not yet been validated. Performed By: #### M AT21 ####[employer] LABCLIA [id number] [place] [id number] funeral director's assistant name Nom (Provider) Comment Normal [facility] Comment on above: Order Comment: Speci men Type: BLOOD SPECIMENOrdering Facility: [facility] Address: [address] [place] [address] Result Comment: This specimen showed an expected representation of chromosome 21, 18 and 13 material. Clinical correlation is suggested. Comment Marcus Mcrae MD, PhD, Director, [email or web address] Performed By: #### M AT21 ####[employer] LABCLIA [id number] [place] [phone] LIMITATIONS OF THE TEST Comment Normal [facility] Comment on above: Order Comment: Speci men Type: BLOOD SPECIMENOrdering Facility: [facility] Address: [address] [place] [address] Result Comment: Whil e the results of [...] and Fragmin(R)). Performed By: #### M AT21 ####[employer] LABCLIA [id number] [place] [address] Monosomy X risk Dosage of chromosome-specific cfDNA Ql (Plasma cell-free+WBC DNA) [Interp] Not detected Normal [facility] Comment on above: Order Comment: Speci men Type: BLOOD SPECIMENOrdering Facility: [facility] Address: [address] [place] [address] Performed By: #### M AT21 ####[employer] LABCLIA [id number] [place] [address] NEGATIVE PREDICTIVE VALUE Note Normal [facility] Comment on above: Order Comment: Speci men Type: BLOOD SPECIMENOrdering Facility: [facility] Address: [address] [place] [address] Result Comment: The Negative Predictive Value (NPV) for trisomy 21, 18, and 13 is greater than 99%. The NPV for SCA and ESS cannot be calculated as SCA and ESS are only reported when an abnormality is detected. Performed By: #### M AT21 ####[employer] LABCLIA [id number] [place] [address] NOTE Comment Normal [facility] Comment on above: Order Comment: Speci men Type: BLOOD SPECIMENOrdering Facility: [facility] Address: [address] [place] [address] Result Comment: See Notes [employer] is a subsidiary of [employer], using the brand [employer]. This test was developed and its performance characteristics determined by [employer]. It has not been cleared or approved by the Food and Drug Administration. This laboratory is certified under the Clinical Laboratory Improvement Amendments (CLIA) as qualified to perform high complexity clinical laboratory testing and accredited by the [employer] (CAP). If there is future clinical need for adding MaterniT GENOME testing, this specimen will be available until term. [facility] samples will not be retained beyond 60 days. [facility] patients will have to send a new sample for re-sequencing ([facility] Test Code: [id number]). Performed By: #### M AT21 ####[employer] LABCLIA [id number] [place] [address] PERFORMANCE CHARACTERISTICS Note Normal [facility] Comment on above: Order Comment: Speci men Type: BLOOD SPECIMENOrdering Facility: [facility] Address: [address], [place] [address] Result Comment: ! Sex ! Accuracy: 99.4% [...] ! ! ! * As reported in [facility] database nstd37 [https://www.ncbi.nlm.nih.gov/dbvar/studies/nstd37/ ] # [...] gestation only. Performed By: #### M AT21 ####AutomateItIA [id number] [place] [address] POSITIVE PREDICTIVE VALUE N/A Normal [facility] Comment on above: Order Comment: Speci mena Type: BLOOD SPECIMENOrdering Facility: [facility] Address: [address] [place] [address] Performed By: #### M AT21 ####[employer] LABBioTeSysIA [id number] [place] [address] Reference Lab Test Method Comment Normal [facility] Comment on above: Order Comment: Louie san Type: BLOOD SPECIMENOrdering Facility: [facility] Address: [address] [place] [address] Result Comment: See Notes Circulating cell-free DNA [...] and 22. Performed By: #### M AT21 ####[employer] LABBioTeSysIA [id number] [place] [address] Sex Dosage of chromosome-specific cfDNA Nom (cfDNA) Comment Normal [facility] Comment on above: Order Comment: Speci men Type: BLOOD SPECIMENOrdering Facility: [facility] Address: [address] [place] [address] Result Comment: Cons istent with Male Performed By: #### M AT21 ####[employer] LABCLIA [id number] [place] [address] Test performance information Christian (Unsp spec) Comment Normal [facility] Comment on above: Order Comment: Speci men Type: BLOOD SPECIMENOrdering Facility: [facility] Address: [address] [place] [address] Result Comment: The performance characteristics of the MaterniT(R) 21 PLUS laboratory-developed test (LDT) have been determined in a clinical validation study with women at increased risk for chromosomal aneuploidy.[1-4] Performed By: #### M AT21 ####[employer] LABCLIA [id number] [place] [address] Trisomy 13 risk Dosage of chromosome-specific cfDNA Ql (cfDNA) [Interp] Negative Normal [facility] Comment on above: Order Comment: Donovani mena Type: BLOOD SPECIMENOrdering Facility: [facility] Address: [address] [place] [address] Performed By: #### M AT21 ####[employer] LABCLIA [id number] [place] [address] Trisomy 18 risk Dosage of chromosome-specific cfDNA Ql (Plasma cell-free+WBC DNA) [Interp] Negative Normal [facility] Comment on above: Order Comment: Donovani men Type: BLOOD SPECIMENOrdering Facility: [facility] Address: [address] [place] [address] Performed By: #### M AT21 ####[employer] LABCLIA [id number] [place] [address] CBC W Auto Differential pane l (Bld)on 04-22-2024 Basophils (Bld) [#/Vol] 0.04 10*3/uL Normal <0.11 [facility] Comment on above: Order Comment: Speci men Type: BLOOD SPECIMENOrdering Facility: [facility] Address: [address] [place] [address] Performed By: #### 5 7021-8 ####[facility] HOSPITALANNABELLIA [id number] [place] [address] [place] Basophils/100 WBC (Bld) 0.6 % Normal [facility] Comment on above: Order Comment: Speci men Type: BLOOD SPECIMENOrdering Facility: [facility] Address: [address] [place] [address] Performed By: #### 5 7021-8 ####[facility]ITALA [id number] [place] [address] [place] Differential cell count method Nom (Bld) Auto Normal [facility] Comment on above: Order Comment: Speci men Type: BLOOD SPECIMENOrdering Facility: [facility] Address: [address] [place] [address] Performed By: #### 5 7021-8 ####[facility]OS[facility]ITALA [id number] [place] [address] [place] Eosinophils (Bld) [#/Vol] 0.36 10*3/uL Normal <0.46 [facility] Comment on above: Order Comment: Speci men Type: BLOOD SPECIMENOrdering Facility: [facility] Address: [address] [place] [address] Performed By: #### 5 7021-8 ####[facility]OSPITALLIA [id number] [place] [address] [place] Eosinophils/100 WBC (Bld) 5.4 % Normal [facility] Comment on above: Order Comment: Speci men Type: BLOOD SPECIMENOrdering Facility: [facility] Address: [address] [place] [address] Performed By: #### 5 7021-8 ####[facility] JIMCindyNCLIA [id number] [place] [address] [place] Erythrocyte distribution width (RBC) [Ratio] 13.0 % Normal 11.5-15.0 [facility] Comment on above: Order Comment: Speci men Type: BLOOD SPECIMENOrdering Facility: [facility] Address: [address] [place] [address] Performed By: #### 5 7021-8 ####[facility] HOS[facility]ITALANNABELLIA [id number] [place] [address] [place] Hematocrit (Bld) [Volume fraction] 41.7 % Normal 36.0-46.0 [facility] Comment on above: Order Comment: Speci men Type: BLOOD SPECIMENOrdering Facility: [facility] Address: [address] [place] [address] Performed By: #### 5 7021-8 ####[facility] HOSPITALLIA [id number] [place] [address] [place] Hemoglobin (Bld) [Mass/Vol] 14.0 g/dL Normal 11.5-15.5 [facility] Comment on above: Order Comment: Speci men Type: BLOOD SPECIMENOrdering Facility: [facility] Address: [address] [place] [address] Performed By: #### 5 7021-8 ####[facility]OSPITALLIA [id number] [place] [address] [place] Immature granulocytes (Bld) [#/Vol] 0.03 10*3/uL Normal <0.10 [facility] Comment on above: Order Comment: Speci men Type: BLOOD SPECIMENOrdering Facility: [facility] Address: [address] [place] [address] Performed By: #### 5 7021-8 ####[facility] HOSPITALNCLI [id number] [place] [address] [place] Immature granulocytes/100 WBC (Bld) 0.5 % Normal [facility] Comment on above: Order Comment: Speci men Type: BLOOD SPECIMENOrdering Facility: [facility] Address: [address] [place] [address] Performed By: #### 5 7021-8 ####[facility]OS[facility]ITALLIA [id number] [place] [address] [place] Lymphocytes (Bld) [#/Vol] 1.34 10*3/uL Normal 1.00-4.00 [facility] Comment on above: Order Comment: Speci men Type: BLOOD SPECIMENOrdering Facility: [facility] Address: [address] [place] [address] Performed By: #### 5 7021-8 ####[facility] [id number] [place] [address] [place] Lymphocytes/100 WBC (Bld) 20.2 % Normal [facility] Comment on above: Order Comment: Speci men Type: BLOOD SPECIMENOrdering Facility: [facility] Address: [address] [place] [address] Performed By: #### 5 7021-8 ####[facility] HOSPITALNCLIA [id number] [place] [address] [place] MCH (RBC) [Entitic mass] 27.5 pg Normal 26.0-34.0 [facility] Comment on above: Order Comment: Speci men Type: BLOOD SPECIMENOrdering Facility: [facility] Address: [address] [place], [place] [address] Performed By: #### 5 7021-8 ####[facility] HOS[facility]ITALA [id number] [place] [address] [place] MCHC (RBC) [Mass/Vol] 33.6 g/dL Normal 30.5-36.0 [facility] Comment on above: Order Comment: Speci men Type: BLOOD SPECIMENOrdering Facility: [facility] Address: [address] [place] [address] Performed By: #### 5 7021-8 ####[facility] JIMROBERTO [id number] [place] [address] [place] MCV (RBC) [Entitic vol] 81.8 fL Normal 80.0-100.0 [facility] Comment on above: Order Comment: Speci men Type: BLOOD SPECIMENOrdering Facility: [facility] Address: [address] [place] [address] Performed By: #### 5 7021-8 ####[facility] HOSPITALTim [id number] [place] [address] [place] Monocytes (Bld) [#/Vol] 0.49 10*3/uL Normal <0.87 [facility] Comment on above: Order Comment: Speci men Type: BLOOD SPECIMENOrdering Facility: [facility] Address: [address] [place] [address] Performed By: #### 5 7021-8 ####[facility]ITALA [id number] [place] [address] [place] Monocytes/100 WBC (Bld) 7.4 % Normal [facility] Comment on above: Order Comment: Speci men Type: BLOOD SPECIMENOrdering Facility: [facility] Address: [address] [place] [address] Performed By: #### 5 7021-8 ####[facility] [id number] [place] [address] [place] Neutrophils (Bld) [#/Vol] 4.37 10*3/uL Normal 1.45-7.50 [facility] Comment on above: Order Comment: Speci men Type: BLOOD SPECIMENOrdering Facility: [facility] Address: [address] [place] [address] Performed By: #### 5 7021-8 ####[facility] JACKSONVILLEWNCLIA [id number] [place] [address] [place] Neutrophils/100 WBC (Bld) 65.9 % Normal [facility] Comment on above: Order Comment: Speci men Type: BLOOD SPECIMENOrdering Facility: [facility] Address: [address] [place] [address] Performed By: #### 5 7021-8 ####[facility]OSPITALLIA [id number] [place] [address] [place] Nucleated RBC (Bld) [#/Vol] 10*3/uL Normal <0.01 [facility] Comment on above: Order Comment: Speci men Type: BLOOD SPECIMENOrdering Facility: [facility] Address: [address] [place] [address] Performed By: #### 5 7021-8 ####[facility] [id number] [place] [address] [place] Nucleated RBC/100 WBC (Bld) [Ratio] 0.0 /100 WBC Normal [facility] Comment on above: Order Comment: Speci men Type: BLOOD SPECIMENOrdering Facility: [facility] Address: [address] [place] [address] Performed By: #### 5 7021-8 ####[facility] [id number] [place] [address] [place] Platelet mean volume (Bld) [Entitic vol] 9.8 fL Normal 9.0-12.7 [facility] Comment on above: Order Comment: Speci men Type: BLOOD SPECIMENOrdering Facility: [facility] Address: [address] [place] [address] Performed By: #### 5 7021-8 ####[facility] HOSPITALNCLI [id number] [place] [address] [place] Platelets (Bld) [#/Vol] 262 10*3/uL Normal 150-400 [facility] Comment on above: Order Comment: Speci men Type: BLOOD SPECIMENOrdering Facility: [facility] Address: [address] [place] [address] Performed By: #### 5 7021-8 ####[facility] HOSPITALNCTHERESAA [id number] [place] [address] [place] RBC (Bld) [#/Vol] 5.10 10*6/uL Normal 3.90-5.20 [facility] Comment on above: Order Comment: Speci men Type: BLOOD SPECIMENOrdering Facility: [facility] Address: [address] [place] [address] Performed By: #### 5 7021-8 ####[facility] HOSPITALNCA [id number] [place] [address] [place] WBC (Bld) [#/Vol] 6.63 10*3/uL Normal 3.70-11.00 [facility] Comment on above: Order Comment: Speci men Type: BLOOD SPECIMENOrdering Facility: [facility] Address: [address] [place] [address] Performed By: #### 5 7021-8 ####[facility] HOSPITALNCLIA [id number] [place] [address] [place] nuchal translucency me asured by USon 04-22-2024 Indication First trimester anatomic survey, Obesity BMI > 45 Impression remote read - Single, live, intrauterine . - [place] rump length measurement is consistent with the [...] view: suboptimal 4-chamber view with color: suboptimal 4-bwbylz-fndajhr view: suboptimal Abdominal cord insertion: suboptimal Stomach: [...] Read By: Concepcion Ricci M.D. MATERNAL MEDICINE [facility] Radiology Study observation (narrative) [facility] HBV surface Ag Ser Qlon 03-29 HBV surface Ag Ql (S) Negative Normal Negative [facility] Comment on above: Order Comment: Speci men Type: BLOOD SPECIMENOrdering Facility: [facility] Address: [address] [place] [address] Performed By: #### 7 3752-8, 65860-4, 3 ####[facility] LABCLIA [id number] [place] [address] [place] HCV Ab Ser Qlon 04-22-2024 HCV Ab Ql (S) Negative Normal Negative [facility] Comment on above: Order Comment: Speci men Type: BLOOD SPECIMENOrdering Facility: [facility] Address: [address] [place] [address] Result Comment: The result suggests no evidence of active infection with Hepatitis C virus. Should recent infection be suspected, repeat testing may be considered 4-6 weeks after this draw. Performed By: #### 1 6128-1 ####[facility] LABCLIA [id number] [place] [address] [place] HIV 1+2 Ab IA Qlon HIV 1 and 2 Ab IA.rapid Nom (S/P/Bld) Normal [facility] Comment on above: Order Comment: Speci men Type: BLOOD SPECIMENOrdering Facility: [facility] Address: [address] [place] [address] Result Comment: Test not indicated. Performed By: #### 7 3752-8, 47773-0, 3 ####[facility] LABCLIA [id number] [place] [address] [place] HIV 1+2 Ab+HIV1 p24 Ag IA Ql Non-Reactive Normal Nonreactive [facility] Comment on above: Order Comment: Speci men Type: BLOOD SPECIMENOrdering Facility: [facility] Address: [address] [place] [address] Performed By: #### 7 3752-8, 94678-2, 3 ####[facility] LABCLIA [id number] [place] [address] [place] HIV immunoassay testing algorithm interpretation (S/P/Bld) [Interp] Normal [facility] Comment on above: Order Comment: Speci men Type: BLOOD SPECIMENOrdering Facility: [facility] Address: [address] [place] [address] Result Comment: No e vidence of HIV-1 or HIV-2 infection. Should recent infection be suspected, repeat testing may be considered 2-3 weeks after this draw. [employer] Rev. Code 3701.243(E): This information has been [...] or diagnoses. Performed By: #### 7 3752-8, 22420-3, 5195-3 ####[facility] LABCLIA [id number] [place] [address] [place] HbA1c (Bld)on 04-22-2024 Average glucose Estimated from glycated hemoglobin (Bld) [Mass/Vol] 97 mg/dL Normal [facility] Comment on above: Order Comment: Speci men Type: BLOOD SPECIMENOrdering Facility: [facility] Address: [address] [place] [address] Result Comment: eAG: (Estimated average glucose) is a calculated value from HgbA1c and is patient relations representative of the average blood glucose level in the last 2-3 month period. Performed By: #### 5 5454-3 ####[facility] LABCLIA [id number] [place] [address] [place] HbA1c (Bld) [Mass fraction] 5.0 % Normal 4.3-5.6 [facility] Comment on above: Order Comment: Speci men Type: BLOOD SPECIMENOrdering Facility: [facility] Address: [address] [place] [address] Result Comment: Amer [place] Diabetes Association guidelines indicate that patients with HgbA1c in the range 5.7-6.4% are at increased risk for development of diabetes, and intervention by lifestyle modification may be beneficial. HgbA1c greater or equal to 6.5% is considered diagnostic of diabetes. Performed By: #### 5 5454-3 ####[facility] LABIA [id number] [place] [address] [place] RUBELLA IGG ANTIBODYon 04-22 RUBELLA IGG AB, QUAL Positive Normal Positive [facility] Comment on above: Order Comment: Speci men Type: BLOOD SPECIMENOrdering Facility: [facility] Address: [address] [place] [address] Result Comment: The result suggests recent or past exposure to Rubella virus or history of Rubella vaccination. Positive result may also be seen due to presence of passively-transferred antibodies. Please correlate with patient's history. Performed By: #### R UBIGG ####[facility] LABIA [id number] [place] [address] [place] Reagin and Treponema pallidu m IgG and IgM [Interp]on 04-22-2024 T. pallidum IgG+IgM IA Ql (S) Non-Reactive Normal Nonreactive [facility] Comment on above: Order Comment: Speci men Type: BLOOD SPECIMENOrdering Facility: [facility] Address: [address] [place] [address] Performed By: #### 7 3752-8, 38399-5, 5195-3 ####[facility] LABIA [id number] [place] [address] [place] Reagin+T pallidum IgG+IgM Se rPl-Impon 04-22-2024 Reagin and Treponema pallidum IgG and IgM [Interp] Cannot exclude recent Treponemal infection if specimen collected within 7-10 days after appearance of suspect lesions or 2-3 weeks after an exposure. Clinical correlation is required. Normal [facility] Comment on above: Order Comment: Speci men Type: BLOOD SPECIMENOrdering Facility: [facility] Address: [address] [place] [address] Performed By: #### 7 3752-8, 10181-4, 5195-3 ####[facility] LABCLIA [id number] [place] [address] [place] TYPE + SCREEN PRENATALon ABO AB Normal [facility] Comment on above: Order Comment: Speci men Type: BLOOD SPECIMEN [facility] Address: [address] [place] [address] Performed By: #### 2 4323-8, 3084-1 #### [facility] CLIA [id number] [address] [place] [address] [place] Rh Nom (Bld) Positive Normal [facility] Comment on above: Order Comment: Speci men Type: BLOOD SPECIMEN [facility] Address: [address] [place] [address] Performed By: #### 2 4323-8, 3084-1 #### [facility] CLIA [id number] [address] [place] [address] [place] TYPE AND SCREEN EXPIRATION 04/25/2024 23:59 Normal [facility] Comment on above: Order Comment: Speci men Type: BLOOD SPECIMEN [facility] Address: [address] [place] [address] Performed By: #### 2 4323-8, 3084-1 #### [facility] CLIA [id number] [address] [place] [address] [place] Urinalysis complete panel (U )on 04-02-2024 BACTERIA UL 1124.1 uL High Negative [facility] Comment on above: Order Comment: Speci men Type: URINE SPECIMENOrdering Facility: [facility] Address: [address] [place] [address] Performed By: #### 2 4356-8 ####[facility] LABCLIA [id number] [place] [address] [place] Bilirubin Ql (U) Negative Normal Negative [facility] Comment on above: Order Comment: Speci men Type: URINE SPECIMENOrdering Facility: [facility] Address: [address] [place] [address] Performed By: #### 2 4356-8 ####[facility] LABCLIA [id number] [place] [address] [place] Clarity (Unsp spec) Clear Normal Clear [facility] Comment on above: Order Comment: Speci men Type: URINE SPECIMENOrdering Facility: [facility] Address: [address] [place] [address] Performed By: #### 2 4356-8 ####[facility] LABCLIA [id number] [place] [address] [place] [facility] Color (U) Yellow Normal Yellow [facility] Comment on above: Order Comment: Speci men Type: URINE SPECIMENOrdering Facility: [facility] Address: [address] [place] [address] Performed By: #### 2 4356-8 ####[facility] LABCLIA [id number] [place] [address] [place] Epithelial cells LM.HPF (Urine sed) [#/Area] None Seen Normal [facility] Comment on above: Order Comment: Speci men Type: URINE SPECIMENOrdering Facility: [facility] Address: [address] [place] [address] Performed By: #### 2 4356-8 ####[facility] LABCLIA [id number] [place] [address] [place] Glucose Test strip (U) [Mass/Vol] Negative Normal Negative [facility] Comment on above: Order Comment: Speci men Type: URINE SPECIMENOrdering Facility: [facility] Address: [address] [place] [address] Performed By: #### 2 4356-8 ####[facility] LABCLIA [id number] [address] [id number], [place] [address] [place] Hemoglobin Ql (U) Negative Normal Negative [facility] Comment on above: Order Comment: Speci men Type: URINE SPECIMENOrdering Facility: [facility] Address: [address] [place] [address] Performed By: #### 2 4356-8 ####[facility] LABCLIA [id number] [place] [address] [place] Hyaline casts (Urine sed) [#/Area] 0 /[LPF] Normal 0 /LPF [facility] Comment on above: Order Comment: Speci men Type: URINE SPECIMENOrdering Facility: [facility] Address: [address] [place] [address] Performed By: #### 2 4356-8 ####[facility] LABCLIA [id number] [place] [address] [place] Ketones Ql (U) Trace Abnormal Negative [facility] Comment on above: Order Comment: Speci men Type: URINE SPECIMENOrdering Facility: [facility] Address: [address] [place] [address] Performed By: #### 2 4356-8 ####[facility] LABCLIA [id number] [place] [address] [place] Leukocyte esterase Test strip Ql (U) Negative Normal Negative [facility] Comment on above: Order Comment: Speci men Type: URINE SPECIMENOrdering Facility: [facility] Address: [address] [place] [address] Performed By: #### 2 4356-8 ####[facility] LABCLIA [id number] [place] [address] [place] Nitrite Ql (U) Negative Normal Negative [facility] Comment on above: Order Comment: Speci men Type: URINE SPECIMENOrdering Facility: [facility] Address: [address] [place] [address] Performed By: #### 2 4356-8 ####[facility] LABCLIA [id number] [place] [address] [place] pH (U) 5.5 [pH] Normal <8.5 [facility] Comment on above: Order Comment: Speci men Type: URINE SPECIMENOrdering Facility: [facility] Address: [address] [place] [address] Performed By: #### 2 4356-8 ####[facility] LABIA [id number] [place] [address] [place] Protein (U) [Mass/Vol] Negative Normal Negative [facility] Comment on above: Order Comment: Speci men Type: URINE SPECIMENOrdering Facility: [facility] Address: [address] [place] [address] Performed By: #### 2 4356-8 ####[facility] [id number] [place] [address] [place] RBC LM.HPF (Urine sed) [#/Area] 0-2 /HPF Normal 0-2 /HPF [facility] Comment on above: Order Comment: Speci men Type: URINE SPECIMENOrdering Facility: [facility] Address: [address] [place] [address] Performed By: #### 2 4356-8 ####[facility] [id number] [place] [address] [place] Specific gravity (U) [Rel density] 1.031 High 1.005-1.030 [facility] Comment on above: Order Comment: Speci men Type: URINE SPECIMENOrdering Facility: [facility] Address: [address] [place] [address] Performed By: #### 2 4356-8 ####[facility] LABIA [id number] [place] [address] [place] Urobilinogen Ql (U) 0.2 EU/dL Normal 0.2-1.0 EU/dL [facility] Comment on above: Order Comment: Speci men Type: URINE SPECIMENOrdering Facility: [facility] Address: [address] [place] [address] Performed By: #### 2 4356-8 ####[facility] LABCLIA [id number] [place] [address] [place] WBC LM.HPF (Urine sed) [#/Area] 0-5 /HPF Normal 0-5 /HPF [facility] Comment on above: Order Comment: Speci men Type: URINE SPECIMENOrdering Facility: [facility] Address: [address] [place] [address] Performed By: #### 2 4356-8 ####[facility] LABCLIA [id number] [place] [address] [place] Bacteria Ur Culton [...] technique or straight catheterization for???urine???collec tion. Normal [facility] Comment on above: Performed By: #### 6 30-4 ####[facility] LABCLIA [id number] [place] [address] [place] C. trachomatis+N. gonorrhoea e DNA GUS+probe Ql (Unsp spec)on 03-22-2024 C. trachomatis rRNA GUS+probe Ql (Unsp spec) Not detected Normal Not detected [facility] Comment on above: Order Comment: Speci men Type: SWABOrdering Facility: [facility] Address: [address] [place] [address] Performed By: #### 3 6902-5 ####[facility] LABCLIA [id number] [place] [address] [place] N. gonorrhoeae rRNA GUS+probe Ql (Unsp spec) Not detected Normal Not detected [facility] Comment on above: Order Comment: Speci men Type: SWABOrdering Facility: [facility] Address: [address] [place] [address] Performed By: #### 3 6902-5 ####[facility] LABCLIA [id number] [address] [place] [address] [place] POC PROPOSAL LEAD WRITER ULTRASOUNDon 03-22-20 Indication Viability; confirm cardiac activity [...] Read By: Deb Richard CNM MATERNAL MEDICINE [facility] Radiology Study observation (narrative) Shilo [facility] Arnie 03-15-2024 CONNIE Telephone (OBGYWM) ALON SCHMITT ([id number]) 89 F Date Time Provider Department 03/15/24 DARRYL AKDINS During your visit today, we recorded the following information about you: Kiara Car RN 03/15/2024 12:20 PM Signed Patient states she went to [facility] ER this morning with bleeding in early . LMP 02/02/24 (6weeks today) and u/s today she said u/s showed she was measuring 6w2d. She is having brown discharge and dull pelvic aching, but no significant cramping. Unable to pull records d/t betNOW access (can have Ary when she returns [...] Status:Closed by NICOLE MORLEY on 03/15/24 Normal [facility] Emergency Department Summary on 03-15-2024 Emergency Department Summary [facility] Medical Records Department [address] [facility] [address] [address] Emergency Department Summary 03/15/24 MR#: [id number] Acct: [id number] Name: ALON SCHMITT Rep #: [id number] : 2000 23 From: Jay Jay Stevenson [...] positive. Most recent hCG obtained at the [facility] was 4220 on March 11. Her generation engineer is Dr. Adkins. 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 Normal [facility] Transvaginal w/Preg USon Transvaginal w/Preg US [facility] Imaging Services [address] [place] [address] Transvaginal w/Preg US MR#: [id number] Acct: [id number] Name: ALON SCHMITT Rep #: [id number] : 2000 F 23 From: Daniel Brown MD PCP: DANYEL Matthew Status: REG ER Study: Transvaginal w/Preg US Date of Exam: 03/15/24 Exam# [id number] Ordering Dr: Jay Jay Stevenson MD [id number] STUDY: FIRST TRIMESTER OBSTETRICAL ULTRASOUND REASON FOR [...] DANYEL Singh; Dr. Jay Jay Stevenson MD Manager Employee Relations: Signed Normal [facility] hCG Titer Quant., Serumon HCG QUANT. 55360 mIU/mL High 1-3 [facility] Comment on above: Result Comment: hCG levels with Gestational Age Gestational Age hCG mIU/mL (IU/L) 0.2 - 1 week 5 - 50 1-2 weeks 50 - 500 2-3 weeks 100 - 5000 3-4 weeks 500 - 60965 4-5 weeks 1000 - 32397 5-6 weeks 68366 - 100,000 6-8 weeks 13953 - 200,000 2-3 months 21604 - 100,000 Performed By: #### L 700.8000, B882-1, L100.0100 #### [facility] Laboratory [address] [place], [address] B-HCG SerPl-[facility] 4 HCG.beta subunit Qn 4222.0 m[IU]/mL High <5.0 [facility] Comment on above: Order Comment: Speci men Type: BLOOD SPECIMENOrdering Facility: [facility] Address: [address] [id number] Result Comment: ESTIVEN TITATIVE HCG NORMAL RANGES Weeks of Gestation (Weeks Since LMP) 3 Weeks (5.8-71.2 mIU/mL) 4 Weeks (9.5-750 mIU/mL) 5 Weeks (217-7138 mIU/mL) 6 Weeks (158-35399 mIU/mL) 7 Weeks (3697-446278 mIU/mL) 8 Weeks (28009-464333 mIU/mL) 9 Weeks (69854-227092 mIU/mL) 10 Weeks (62051-543473 mIU/mL) 12 Weeks (19792-077796 mIU/mL) Referenced to 4th IS of [facility] Performed By: #### 2 1198-7 ####[facility] LABCLIA [id number] [facility] [id number] [place] [address] OF [facility] Arnie 03-10-2024 HARVINDERN Telephone (OBGYWM) ALON SCHMITT ([id number]) 89 F Date Time Provider Department 03/10/24 NIRU HARRINGTON During your visit today, we recorded the following information about you: Nicole Morley, ROSMERY 03/10/2024 8:18 AM Signed Patient calling asking provider solderer electronic to review her results as Dr. Adkins is not in the office until tomorrow. Patient had last HCG quant drawn yesterday and states that she is supposed to get another one drawn tomorrow. Patient had previously requested in a [employer] message to have quant levels drawn twice [...] Status:Closed by BELEN CRENSHAW on 03/10/24 Normal [facility] B-HCG SerPl-aCncon 4 HCG.beta subunit Qn 2342.0 m[IU]/mL High <5.0 [facility] Comment on above: Order Comment: Speci men Type: BLOOD SPECIMEN [facility] Address: [address] [place] [address] Result Comment: ESTIVEN TITATIVE HCG NORMAL RANGES Weeks of Gestation (Weeks Since LMP) 3 Weeks (5.8-71.2 mIU/mL) 4 Weeks (9.5-750 mIU/mL) 5 Weeks (217-7138 mIU/mL) 6 Weeks (158-66204 mIU/mL) 7 Weeks (3697-019000 mIU/mL) 8 Weeks (41122-478574 mIU/mL) 9 Weeks (67663-997855 mIU/mL) 10 Weeks (64332-406597 mIU/mL) 12 Weeks (10970-501272 mIU/mL) Referenced to 4th IS of [facility] Performed By: #### 2 4323-8, 3084-1 #### [facility] CLIA [id number] [address] [place] [address] [place] B-HCG SerPl-aCncon 4 HCG.beta subunit Qn 667.4 m[IU]/mL High <5.0 C [facility] Comment on above: Order Comment: Speci men Type: BLOOD SPECIMENOrdering Facility: [facility] Address: [facility] [place] [address] Result Comment: ESTIVEN TITATIVE HCG NORMAL RANGES Weeks of Gestation (Weeks Since LMP) 3 Weeks (5.8-71.2 mIU/mL) 4 Weeks (9.5-750 mIU/mL) 5 Weeks (217-7138 mIU/mL) 6 Weeks (158-96516 mIU/mL) 7 Weeks (3697-929052 mIU/mL) 8 Weeks (43399-234958 mIU/mL) 9 Weeks (67163-651143 mIU/mL) 10 Weeks (36546-416059 mIU/mL) 12 Weeks (13706-516992 mIU/mL) Referenced to 4th IS of [facility] Performed By: #### 2 1198-7 ####[facility] LABCLIA [id number] [address] [place] CNPDhara 03-04-2024 CNPN Telephone (OBGYWM) ALON SCHMITT ([id number]) 89 F Date Time Provider Department 03/04/24 [...] drawn tomorrow. NOB appt scheduled. Transferred to [facility] to get lab appt scheduled for tomorrow morning. Beeln Crenshaw RN Allergies As of Date: 03/04/2024 [...] Encounter Status:Closed by NICOLE MORLEY on 03/04/24 [facility] ([id number]) 89 F Date Time Provider Department 03/04/24 [...] miscarriage [Z87.59] Order(s):HCG QUANTITATIVE [SQHCGQT] Order #: [id number] STANDING Prescriptions as of 03/04/2024 - VAZALORE [...] Status:Closed by DARRYL ADKINS on 03/04/24 Normal [facility] B-HCG SerPl-aCncon 4 HCG.beta subunit Qn 263.8 m[IU]/mL High <5.0 C [facility] Comment on above: Order Comment: Speci men Type: BLOOD SPECIMEN [facility] Address: [address] [place] [address] Result Comment: ESTIVEN TITATIVE HCG NORMAL RANGES Weeks of Gestation (Weeks Since LMP) 3 Weeks (5.8-71.2 mIU/mL) 4 Weeks (9.5-750 mIU/mL) 5 Weeks (217-7138 mIU/mL) 6 Weeks (158-78571 mIU/mL) 7 Weeks (3697-013821 mIU/mL) 8 Weeks (93418-404102 mIU/mL) 9 Weeks (44582-644156 mIU/mL) 10 Weeks (88512-034496 mIU/mL) 12 Weeks (20997-262835 mIU/mL) Referenced to 4th IS of [facility] Performed By: #### 2 4323-8, 3084-1 #### [facility] CLIA [id number] [address] [place] [address] [place] B-HCG SerPl-aCncon 4 HCG.beta subunit Qn 117.3 m[IU]/mL High <5.0 C [facility] Comment on above: Order Comment: Speci men Type: BLOOD SPECIMEN [facility] Address: [address] [place] [address] Result Comment: ESTIVEN TITATIVE HCG NORMAL RANGES Weeks of Gestation (Weeks Since LMP) 3 Weeks (5.8-71.2 mIU/mL) 4 Weeks (9.5-750 mIU/mL) 5 Weeks (217-7138 mIU/mL) 6 Weeks (158-14977 mIU/mL) 7 Weeks (3697-101340 mIU/mL) 8 Weeks (64874-539104 mIU/mL) 9 Weeks (42553-924544 mIU/mL) 10 Weeks (55556-987445 mIU/mL) 12 Weeks (71050-173628 mIU/mL) Referenced to 4th IS of [facility] Performed By: #### 2 1198-7 #### [facility] CLIA [id number] [address] [place] [address] [place] CNOVon 02-16-2024 CNOV Office Visit (OBGYWM) ALON SCHMITT ([id number]) 89 F Date Time Provider Department 02/16/24 9:40 AM DARRYL ADKINS OBTHELMA During your visit today, we recorded the following information about you: Blood pressure Weight Last Period 128/80 127.3 kg 02/01/24 Darryl Adkins MD 02/16/2024 12:53 PM Signed Alon Schmitt is a 23 year old female who presents as a new patient for history of two miscarriages. HPI: Transfer from [place]. History of 2 miscarriages. With her first [...] OB History No obstetric history on file. 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 Patient reports having recent annual exam. Discussed [...] Diagnosis:History of miscarriage [Z87.59] Order(s):PELVIC US WHI [4357823] Order #: [id number]: 1 FUTURE aspirin 81 mg capTake 81 mg by mouth once daily. Starting with positive test.Disp: 30 capsuleRfl: 1 progesterone micronized (PROMETRIUM) 200 mg capsuleUse 1 capsule vaginally daily at bedtime. Starting with positive test.Disp: 30 capsuleRfl: 1 Prescriptions as of 02/16/2024 - aspirin 81 mg cap Take 81 m (more content not included)... Normal [facility] 36on 02-02-2024 36 ----- Message from CHARISMA Matthew CNP sent at 02/02/2024 3:27 PM EDT ----- Protein S total mildly elevated, but free antigen is within normal range. Negative Factor 5 Leiden Mutation. Negative prothrombin factor mutation. Left a message to return call. Patient viewed on [employer]ANT[employer]. Sent [employer] message as well. Normal [facility] 36on 01-21-2024 36 Patient made it to appointment [facility] Office Visiton 01-21-2024 Follow-up visit [id number] KeshiaPradeepAlon C 2000 F Date Provider Department Center 01/21/2024 73773-YICBLERIN SINGH [facility] Family History Problem Relation Age of Onset Diabetes Mother Depression Mother Diabetes Father Family Status - Relation Status Age at Mother Father Level of Service:41555 [place] OFFICE/OUTPATIENT ESTABLISHED MOD MDM 30 MIN Reason for Visit and Comments: Health Maintenance [872] - HIV/HEP C screen- declines(thinks she's had done) HPV- declines Tdap- declines Covid- not done/does not want Flu- declines Recurrent Miscarriage [041866] - Patient states that 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 Cruz in [place], feels like she is getting the run around with answers. Blood Work [995164] [facility] Progress Noteon 01-21-2024 Progress Note 01/21/2024 Alon [...] to back, does see Dr. Cruz in [place], feels like she is getting the run [...] notify of results. - Follow up with Commutator Tester as directed. 2. Amenorrhea - Protein S, [...] notify of results. - Follow up with Commutator Tester as directed. 3. Morbid obesity with BMI [...] Has followed up with Dr. Niru Cruz (Commutator Tester) in [place] but feels like she is getting the run around and is not getting any answers. Will be following up with another Commutator Tester. Has been attempting to conceive since last [...] rhythm. Pulses (more content not included)... [facility] Patient verified by last name and . Normal [facility] hCG Titer Quant., Serumon HCG QUANT. < 1 Normal 1-3 [facility] Comment on above: Result Comment: hCG levels with Gestational Age Gestational Age hCG mIU/mL (IU/L) 0.2 - 1 week 5 - 50 1-2 weeks 50 - 500 2-3 weeks 100 - 5000 3-4 weeks 500 - 67575 4-5 weeks 1000 - 89674 5-6 weeks 16855 - 100,000 6-8 weeks 99268 - 200,000 2-3 months 09021 - 100,000 Performed By: #### L 700.8000 #### [facility] Laboratory [address] [place], [address] hCG Titer Quant., Serumon HCG QUANT. 7 mIU/mL [facility] 1-3 [facility] Comment on above: Performed By: #### L 700.8000 #### [facility] [address] [place], [address] hCG Titer Quant., Serumon HCG QUANT. 16 mIU/mL [facility] [address] [place] [address] Comment on above: Result Comment: hCG levels with Gestational Age Gestational Age hCG mIU/mL (IU/L) 0.2 - 1 week 5 - 50 1-2 weeks 50 - 500 2-3 weeks 100 - 5000 3-4 weeks 500 - 81577 4-5 weeks 1000 - 77499 5-6 weeks 65837 - 100,000 6-8 weeks 02090 - 200,000 2-3 months 52770 - 100,000 Performed By: #### L 788.8000 #### [facility] [address] [place], [address] Commutator Tester Office Visit Reporton 12-08-2023 Commutator Tester Office Visit Report [facility] Emergency Department [address] [place], [place] [address] OFFICE VISIT Date of Service: 12/08/23 MR#: [id number] Acct: [id number] Name: ALON SCHMITT Rep #: [id number] : 2000 Provider: Dr. Niru Pacheco DO Age/Sex: 23/F [place] [facility]: Signed Intake Vital Signs 11/20/23 08:17 12/08/23 09:29 12/08/23 09:29 Height 5 ft 3 in 5 ft 3 in 5 ft 3 in Weight: 273 lb 8 oz BMI 48.4 BP 142/84 H Intake Visit Reasons: d/c follow-up Warehouse Director Required: No Is patient in pain?: No [...] Gibson DO) Status post dilation and curettage [place] teeth extracted History of cholecystectomy Family History Mother Diabetes, Onset Age: 35 Type 2 Father Diabetes, Onset Age: 40 Type 2 Grandfather Heart disease Paternal Grandmother Diabetes Paternal Social History adopted: No household members: spouse current occupational status: employed current occupation: [employer] current occupational exposures/hazards: No pets and animals: [...] 1-2 times per week duration: 30-45 minutes/day kenyetta/rastafarian: Anabaptism seatbelt use: always do you feel safe at home: Yes 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, [address] CBC W/Diff, Automatedon 10-27 Absolute Lymph 2.22 X10 3/uL Normal 0.83-4.51 [facility] Comment on above: Performed By: #### L 700.8000, B882-1, L100.0100 #### [facility] [address] [place], [address] Absolute Neut 5.5 X10 3/uL Normal 2.0-7.7 [facility] Comment on above: Performed By: #### L 700.8000, B882-1, L100.0100 #### [facility] [address] [place], [address] Basophils/100 WBC (Bld) 0.9 % Normal 0-1 [facility] Comment on above: Performed By: #### L 700.8000, B882-1, L100.0100 #### [facility] [address] [place], [address] Eosinophils/100 WBC (Bld) 2.2 % Normal 0-5 [facility] Comment on above: Performed By: #### L 700.8000, B882-1, L100.0100 #### [facility] [address] [place], [address] Erythrocyte distribution width (RBC) [Ratio] 12.9 % Normal 11.6-14.6 [facility] Comment on above: Performed By: #### L 700.8000, B882-1, L100.0100 #### [facility] [address] [place], [address] Hematocrit (Bld) [Volume fraction] 43.3 % Normal 37-47 [facility] Comment on above: Performed By: #### L 700.8000, B882-1, L100.0100 #### [facility] [address] [place], [address] Hemoglobin (Bld) [Mass/Vol] 14.6 g/dL Normal 12.0-15.0 [facility] Comment on above: Performed By: #### L 700.8000, B882-1, L100.0100 #### [facility] [address] [place], [address] IG% 0.600 Normal 0.0-0.9 [facility] Comment on above: Result Comment: IG% - Immature Granulocytes (promyelocytes, myelocytes and metamyelocytes) > 1% indicates that a LEFT SHIFT is Present. Performed By: #### L 700.8000, B882-1, L100.0100 #### [facility] [address] [place], [address] Lymphocytes/100 WBC (Bld) 25.9 % Normal 19-41 [facility] Comment on above: Performed By: #### L 700.8000, B882-1, L100.0100 #### [facility] [address] [place], [address] MCH (RBC) [Entitic mass] 27.7 pg Normal 27.0-32.0 [facility] Comment on above: Performed By: #### L 700.8000, B882-1, L100.0100 #### [facility] [address] [place], [address] MCHC (RBC) [Mass/Vol] 33.7 g/dL Normal 32-36 [facility] Comment on above: Performed By: #### L 700.8000, B882-1, L100.0100 #### [facility] [address] [place], [address] MCV (RBC) [Entitic vol] 82.2 fL Normal 81-99 [facility] Comment on above: Performed By: #### L 700.8000, B882-1, L100.0100 #### [facility] [address] [place], [address] Monocytes/100 WBC (Bld) 6.0 % Normal 0-10 [facility] Comment on above: Performed By: #### L 700.8000, B882-1, L100.0100 #### [facility] [address] [place], [address] Neutrophils/100 WBC (Bld) 64.4 % Normal 47-70 [facility] Comment on above: Performed By: #### L 700.8000, B882-1, L100.0100 #### [facility] [address] [place], [address] Nucleated RBC (Bld) [#/Vol] 0 10*3/uL Normal 0-5 [facility] Comment on above: Performed By: #### L 700.8000, B882-1, L100.0100 #### [facility] [address] [place], [address] Platelet mean volume (Bld) [Entitic vol] 9.4 fL Normal 6.2-12.0 [facility] Comment on above: Performed By: #### L 700.8000, B882-1, L100.0100 #### [facility] [address] [place], [address] Platelets (Bld) [#/Vol] 344 10*3/uL Normal 150-450 [facility] Comment on above: Performed By: #### L 700.8000, B882-1, L100.0100 #### [facility] [address] [place], [address] RBC (Bld) [#/Vol] 5.27 10*6/uL Normal 4.2-5.4 [facility] Comment on above: Performed By: #### L 700.8000, B882-1, L100.0100 #### [facility] [address] [place], [address] RDW SD 38.5 fl Normal 35.1-43.9 [facility] Comment on above: Performed By: #### L 700.8000, B882-1, L100.0100 #### [facility] [address] [place], [address] WBC (Bld) [#/Vol] 8.6 10*3/uL Normal 4.4-11.0 [facility] Comment on above: Performed By: #### L 700.8000, B882-1, L100.0100 #### [facility] [address] [place], [address] Discharge Instructionon 10-27 Discharge Instruction [facility] Medical Records Department [address] [place] [address] Instructions for Home/Discharge Instructions 11/20/23 0833 MR#: [id number] Acct: [id number] Name: ALON SCHMITT Rep #: [id number] : 2000 From: Niru Gibson DO PCP: DANYEL Matthew Status:REG [facility] Discharge Instructions Diet Discharge Diet: No restrictions [...] Up With: Niru Gibson DO When: Call [phone] to schedule appointment. Test Results: Test results from this visit will be discussed in further detail at your follow-up appointment, if applicable. Discharge Plan Admission Attending Provider: Niru Gibson Primary Care Provider: Erin Singh NP Instructions Print Language: Latvian Discharge Orders/Prescriptions Prescriptions: No Action PNV-DHA 27 mg iron-1 mg -300 mg capsule 1 cap PO DAILY Referrals / Follow Up: Erin Singh NP, EXAMINATION SUPERVISOR-C [Primary Care Provider] - Disposition Disposition (needs filled in before D/C Order can be placed): Home, Self Care 11/20/23832 Niru Gibson DO CC: LINOC Erin Singh Signed Normal [facility] Emergency Department Summary on 11-20-2023 Emergency Department Summary [facility] Medical Records Department [address] [place] [address] Emergency Department Summary 11/20/23 MR#: [id number] Acct: [id number] Name: ALON SCHMITT Rep #: [id number] : 2000 23 From: Niru Silvestre MD PCP: DANYEL Matthew Status:[facility] Location: [place] [address] HPI HPI - Female History of Present [...] large clots with a lot of cramping. 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 Normal [facility] H AND P Exam - OB/GYNon 10-27 H&P Exam - CT SCAN SPECIAL PROCEDURES TECHNOLOGIST [facility] Medical Records Department [address] [place] [address] H P Exam - CT SCAN SPECIAL PROCEDURES TECHNOLOGIST 11/20/23826 MR#: [id number] Acct: [id number] Name: ALON SCHMITT Rep #: [id number] : 2000 23 From: Niru Gibson DO PCP: DANYEL Matthew Status:REG [facility] Location: [place] [address] HPI - General HPI Narrative ALON SCHMITT, is a 23 y/o @ approximately 7 weeks gestation who presents to [facility] ER with heavy bleeding and severe pain. 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 Normal [facility] MR/POSTOP.ANEon 11-20-2023 MR/POSTOP.[facility] Medical Records Department [address] [place] [address] Anesthesia Postop Eval I 11/20/23 0939 MR#: [id number] Acct: [id number] Name: ALON SCHMITT Rep #: [id number] : 2000 23 From: Moy Pena PCP: DANYEL Matthew Status:REG SDC Y Race: C Location: [facility] Anesthesia: Postop Eval I Current Vital Signs [...] Moy Payne Signature: Date CC: Signed Normal [facility] MR/OXUZSSTV3ly 11-20-2023 [facility] Medical Records Department [address] [place] [address] Anesthesia Postop Eval II 11/20/2346 MR#: [id number] Acct: [id number] Name: ALON SCHMITT Rep #: [id number] : 2000 23 From: Russ Harding MD PCP: DANYEL Matthew Status:REG [facility] Y Race: C Location: [facility] Anesthesia Postop Eval I Sum Postop Eval [...] Russ Payne Signature: Date CC: Signed Normal [facility] Operative Reporton 4 Operative Report [facility] Medical Records Department [address] [place] [address] Operative Report 11/20/23910 MR#: [id number] Acct: [id number] Name: KESHIAALON Rep #: [id number] : 2000 23 From: Niru Gibson DO PCP: DANYEL Matthew Status:[facility] Location: [place] [address] Problems Associated Problem List Diagnoses (1) Incomplete : Report of Operation Date of Procedure: 11/20/23 Pre-Operative Diagnosis: incomplete , 7 weeks gestation Post-Operative Diagnosis: incomplete , 7 weeks gestation Surgery/Procedure Performed:: suction dilation and curettage Description of Surgical Findings:: POC mostly in the cervix Surgeon: Niru Gibson keno writer / runner: None Type of Anesthesia: MAC and Topical [...] Multi Select Codes Urinary/Genital Urinary/Genital CPT Codes: 74171 Surg Trtmt missed Ab 1TM 11/20/23 0913 Cosigner Signature (if applicable): CC: DANYEL Singh; Dr. Niru Gibson DO Signed Normal [facility] Surgery Specimen Level Henry 11-20-2023 Surgery Specimen Level IV Patient Age/Sex Location Account Attending Physician ALON SCHMITT / [facility] [id number] Zeina Gifford Specimen: [id number] Received: 11/20/23 Status: JOSHUA Harp Num: [id number] Spec Type: PROD CONC Subm Dr: Dr. [...] 5.5 x 1.5cm. tissue is not identified. Business Controller tissue is submitted in three cassettes. / 11/20/2023 TC:5 CPT:77729 Patient Age/Sex Location Account Attending Physician ALON SCHMITT 23/[facility]3] [id number] Zeina Gifford Signed (signature on file) Dr. Damien Platt, DO 11/21/23 1343 Normal [facility] Comment on above: Performed By: #### L 700.8000, B882-1, L100.0100 #### [facility] Laboratory [address] [facility] [place], [place], [address] Transvaginal w/Preg USon Transvaginal w/Preg US [facility] Imaging Services [address] [place], [place] [address] Transvaginal w/Preg US MR#: [id number] Acct: [id number] Name: ALON SCHMITT Rep #: [id number] : 2000 F 23 From: Shira Larose MD PCP: DANYEL Matthew Status: [facility] Study: Transvaginal w/Preg US Date of Exam: 11/20/23 Exam# [id number] Ordering Dr: Niru Silvestre MD [id number] STUDY: FIRST TRIMESTER OBSTETRICAL ULTRASOUND REASON FOR [...] 7:54 EDT Reading Location ID and State: [address] [place] [address] , Service support , CC: DANYEL Singh; Dr. Niru Silvestre MD Manager Employee Relations: Signed Normal [facility] hCG Titer Quant., Serumon HCG QUANT. 4774 mIU/mL High 1-3 [facility] Comment on above: Result Comment: hCG levels with Gestational Age Gestational Age hCG mIU/mL (IU/L) 0.2 - 1 week 5 - 50 1-2 weeks 50 - 500 2-3 weeks 100 - 5000 3-4 weeks 500 - 66606 4-5 weeks 1000 - 56971 5-6 weeks 94093 - 100,000 6-8 weeks 15985 - 200,000 2-3 months 60998 - 100,000 Performed By: #### L 700.8000, B882-1, L100.0100 #### [facility] [address] [place], [address] Chlamydia/GC GUS aptimaon CHLAMY,NUC ACID Negative Normal Negative [facility] Comment on above: Performed By: #### L 700.8000, B882-1, L100.0100 #### [facility] [address] [place], [address] GC BY NUC ACID Negative Normal Negative [facility] Comment on above: Result Comment: Perf ormed at: =G - [facility] [address] [id number] Concrete Bucket Hooker: Tabatha Saravia MD, Phone: [phone] Performed By: #### L 700.8000, B882-1, L100.0100 #### [facility] [address] [place], [place], [address] hCG Titer Quant., Serumon HCG QUANT. 77151 mIU/mL High 1-3 [facility] Comment on above: Result Comment: hCG levels with Gestational Age Gestational Age hCG mIU/mL (IU/L) 0.2 - 1 week 5 - 50 1-2 weeks 50 - 500 2-3 weeks 100 - 5000 3-4 weeks 500 - 99285 4-5 weeks 1000 - 21270 5-6 weeks 91806 - 100,000 6-8 weeks 95397 - 200,000 2-3 months 37127 - 100,000 Performed By: #### L 700.8000 #### [facility] [address] [place], [address] Urine Cultureon 11-12-2023 URC Culture exhibits no growth. Normal [facility] Comment on above: Performed By: #### L 700.8000, B882-1, L100.0100 #### [facility] [address] [place], [address] Commutator Tester Office Visit Reporton 11-11-2023 Commutator Tester Office Visit Report [facility] [address] [place] [address] OFFICE VISIT Date of Service: 11/11/23 MR#: [id number] Acct: [id number] Name: ALON SCHMITT Rep #: [id number] : 2000 Provider: CLAIRE Grossman ams Age/Sex: 23/F [place] [facility] Status: Signed Intake Vital Signs 11/11/23 15:08 Height 5 ft 3 in Weight: 277 lb BMI 49.0 BP 147/88 H Intake Visit Reasons: LMP 09/05 Warehouse Director Required: No Is patient in pain?: No Allergies No Known Allergies Allergy (Verified 11/11/23 15:05) Medications ???Medication ???Instructions ???Recorded ???Confirmed ???Type multivitamin no.47-iron fum 27 cap PO 11/04/23 11/11/23 History mg-folate no.1 1 mg-dha 300 mg capsule (PNV-DHA) Last Menstrual Period: 09/06/23 Zika: Zika virus screening: Negative : No PFSH PFSH Surgical History [place] teeth extracted History of cholecystectomy Family History Mother Diabetes, Onset Age: 35 Type 2 Father Diabetes, Onset Age: 40 Type 2 Grandfather Heart disease Paternal Grandmother Diabetes Paternal Social History adopted: No household members: spouse service: No current occupational status: employed current occupation: [employer] current occupational exposures/hazards: No pets and animals: [...] 1-2 times per week duration: 30-45 minutes/day kenyetta/rastafarian: Anabaptism seatbelt use: always do you feel safe at home: Yes 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 Normal [facility] hCG Titer Quant., Serumon HCG QUANT. 94208 mIU/mL High 1-3 [facility] Comment on above: Result Comment: hCG levels with Gestational Age Gestational Age hCG mIU/mL (IU/L) 0.2 - 1 week 5 - 50 1-2 weeks 50 - 500 2-3 weeks 100 - 5000 3-4 weeks 500 - 12529 4-5 weeks 1000 - 64855 5-6 weeks 27827 - 100,000 6-8 weeks 39227 - 200,000 2-3 months 79401 - 100,000 Performed By: #### L 700.8000 #### [facility] [address] [place], [place], [address] Urinalysis macro (dipstick) panel (U)on 09-06-2022 Bilirubin, UA Negative [facility], In[facility] h Blood, UA Negative [facility] Glucose, UA Negative [facility] Interpretation and review of laboratory results Abnormal [facility] Ketones, UA Negative [facility] Leukocytes, UA Trace [facility] th Nitrite, UA Negative [facility] pH, UA 6.0 [facility] Protein, UA Negative [facility] Spec Grav, [facility]A 1.015 [facility], [facility]A 0.2 [facility] MONO Teston 02-15-2019 MONO Test Negative Normal [facility] Comment on above: Performed By: #### M ONO1 #### [facility] [address] [place] [address] MONONUCLEOSIS SCREENon 02-15 Sodium [Moles/Vol] Negative [facility], [place] Test Performed by [employer] [facility], [address], [place] Rapid Flu A AND B, RNAon Rapid Influenza A Not Detected Normal Not Detected [facility] Comment on above: Performed By: #### R PFAB #### [facility] [address] [address] Rapid Influenza B Not Detected Normal Not Detected [facility] Comment on above: Performed By: #### R PFAB #### [address] [place] [address] Rapid influenza A/B antigens on 02-15-2019 INFLUENZA A Not Detected Not Detected [facility], [place] INFLUENZA B Not Detected Not Detected NA [facility], [place] Test Performed by [facility] [employer] [facility], [address] , [address], [place] CR Chest PA/LATon 05-15-2018 CR Chest PA/LAT Patient Name: ALON BROWER Diagnostic Radiology Exam Date/Time 05/15/2018 11:59:11 EST Exam CR Chest PA/LAT Ordering Physician MAGALIE MANZANO Accession Number [id number] CPT4 Codes 85150 () Reason For Exam chest pain, trauma [...] Transcribed Date and Time: 05/15/2018 12:08 Normal [facility] CR Clavicle Complete Lefton 05-15-2018 CR Clavicle Complete Left Patient Name: ALON BROWER Diagnostic Radiology Exam Date/Time 05/15/2018 11:59:11 EST Exam CR Clavicle Complete Left Ordering Physician MAGALIE MANZANO Accession Number [id number] CPT4 Codes 64857 () Reason For Exam trauma, pain Report [...] Transcribed Date and Time: 05/15/2018 12:08 Normal [facility] CR Shoulder 2+ Views Lefton 05-15-2018 CR Shoulder 2+ Views Left Patient Name: ALON BROWER Diagnostic Radiology Exam Date/Time 05/15/2018 11:59:11 EST Exam CR Shoulder 2+ Views Left Ordering Physician MAGALIE MANZANO Accession Number [id number] CPT4 Codes 16265 () Reason For Exam pain Report Examination: [...] Transcribed Date and Time: 05/15/2018 12:07 Normal [facility] Vital Signs Date Time Vital Sign Value Performing Clinician Facility 10-18-2024 09:16-0400 Body mass index (BMI) [Ratio] 52.01 kg/m2 Deb Richard STORE GROUP MANAGER.CNM Work Phone: [facility] 10-18-2024 09:16-0400 Body weight 137.44 kg Deb Richard STORE GROUP MANAGER.CNM Work Phone: [facility] 10-18-2024 09:16-0400 Diastolic blood pressure 82 mm[Hg] Deb Richard STORE GROUP MANAGER.CNM Work Phone: [facility] 10-18-2024 09:16-0400 Systolic blood pressure 147 mm[Hg] Deb Richard STORE GROUP MANAGER.CNM Work Phone: [facility] 10-11-2024 10:42-0400 Body mass index (BMI) [Ratio] 51.25 kg/m2 Gita Nation MD Work Phone: [facility] 10-11-2024 10:42-0400 Body weight 135.44 kg Gita Nation MD Work Phone: [facility] 10-11-2024 10:42-0400 Diastolic blood pressure 90 mm[Hg] Gita Nation MD Work Phone: [facility] 10-11-2024 10:42-0400 Systolic blood pressure 142 mm[Hg] Gita Nation MD Work Phone: [facility] 10-07-2024 15:33-0400 Diastolic blood pressure 88 mm[Hg] [facility] 10-07-2024 15:33-0400 Systolic blood pressure 138 mm[Hg] [facility] 10-07-2024 13:37-0400 Diastolic blood pressure 78 mm[Hg] Erin Singh EXAMINATION SUPERVISOR-C Work Phone: [facility] 10-07-2024 13:37-0400 Heart rate 108 /min Erin Singh EXAMINATION SUPERVISOR-C Work Phone: [facility] 10-07-2024 13:37-0400 Systolic blood pressure 146 mm[Hg] Erin Singh EXAMINATION SUPERVISOR-C Work Phone: [facility] 10-07-2024 12:02-0400 Body temperature 98.6 [degF] Erin Singh EXAMINATION SUPERVISOR-C Work Phone: [facility] 10-07-2024 12:02-0400 Respiratory rate 16 /min Erin Singh EXAMINATION SUPERVISOR-C Work Phone: [facility] 10-07-2024 11:53-0400 Body height 165.1 cm Erin Singh EXAMINATION SUPERVISOR-C Work Phone: [facility] 10-07-2024 11:53-0400 Body mass index (BMI) [Ratio] 49.6 kg/m2 Erin Singh EXAMINATION SUPERVISOR-C Work Phone: [facility] 10-07-2024 11:53-0400 Body weight 135.28 kg Erin Singh EXAMINATION SUPERVISOR-C Work Phone: [facility] 10-04-2024 09:21-0400 Body mass index (BMI) [Ratio] 50.98 kg/m2 Theo Boyle MD Work Phone: [facility] 10-04-2024 09:21-0400 Body weight 134.72 kg Theo Boyle MD Work Phone: [facility] 10-04-2024 09:21-0400 Diastolic blood pressure 80 mm[Hg] Theo Boyle MD Work Phone: [facility] 10-04-2024 09:21-0400 Systolic blood pressure 133 mm[Hg] Theo Boyle MD Work Phone: [facility] 09-30-2024 10:13-0400 Body mass index (BMI) [Ratio] 50.64 kg/m2 Niru Harrington MD Work Phone: [facility] 09-30-2024 10:13-0400 Body weight 133.81 kg Niru Harrington MD Work Phone: [facility] 09-30-2024 10:13-0400 Diastolic blood pressure 84 mm[Hg] Niru Harrington MD Work Phone: [facility] 09-30-2024 10:13-0400 Systolic blood pressure 139 mm[Hg] Niru Harrington MD Work Phone: [facility] 09-24-2024 14:38-0400 Body mass index (BMI) [Ratio] 50.46 kg/m2 Rachel Mosqueda APRN.CNM Work Phone: [facility] 09-24-2024 14:38-0400 Body weight 133.36 kg Rachel Mosqueda APRN.CNM Work Phone: [facility] 09-24-2024 14:38-0400 Diastolic blood pressure 80 mm[Hg] Rachel Panda STORE GROUP MANAGER.CNM Work Phone: [facility] 09-24-2024 14:38-0400 Systolic blood pressure 137 mm[Hg] Rachel Mosqueda APRN.CNM Work Phone: [facility] 09-21-2024 11:58-0400 Diastolic blood pressure 82 mm[Hg] Niru Harrington MD Work Phone: [facility] Comment on above: demetrius bp average 09-21-2024 11:58-0400 Systolic blood pressure 127 mm[Hg] Niru Harrington MD Work Phone: [facility] Comment on above: demetrius bp average 09-21-2024 08:41-0400 Body mass index (BMI) [Ratio] 50.46 kg/m2 Niru Harrington MD Work Phone: [facility] 09-21-2024 08:41-0400 Body weight 133.36 kg Niru Harrington MD Work Phone: [facility] 09-21-2024 08:41-0400 Heart rate 136 /min Niru Harrington MD Work Phone: [facility] 09-13-2024 19:41-0400 Body height 162.56 cm Erin Singh EXAMINATION SUPERVISOR-C Work Phone: [facility] 09-13-2024 19:41-0400 Body mass index (BMI) [Ratio] 49.9 kg/m2 Erin Singh EXAMINATION SUPERVISOR-C Work Phone: [facility] 09-13-2024 19:41-0400 Body weight 131.99 kg Erin Singh EXAMINATION SUPERVISOR-C Work Phone: [facility] 09-13-2024 19:29-0400 Diastolic blood pressure 69 mm[Hg] Erin Singh EXAMINATION SUPERVISOR-C Work Phone: [facility] 09-13-2024 19:29-0400 Heart rate 104 /min Erin Singh EXAMINATION SUPERVISOR-C Work Phone: [facility] 09-13-2024 19:29-0400 Systolic blood pressure 130 mm[Hg] Erin Singh EXAMINATION SUPERVISOR-C Work Phone: [facility] 09-13-2024 18:16-0400 Body temperature 98.7 [degF] Erin Singh EXAMINATION SUPERVISOR-C Work Phone: [facility] 09-13-2024 18:16-0400 Respiratory rate 18 /min Erin Singh EXAMINATION SUPERVISOR-C Work Phone: [facility] 09-13-2024 18:15-0400 SaO2% (BldA) [Mass fraction] 98 % Erin Singh EXAMINATION SUPERVISOR-C Work Phone: [facility] 09-10-2024 13:59-0400 Body mass index (BMI) [Ratio] 49.26 kg/m2 Niru Harrington MD Work Phone: [facility] 09-10-2024 13:59-0400 Body weight 130.18 kg Niru Harrington MD Work Phone: [facility] 09-10-2024 13:59-0400 Diastolic blood pressure 78 mm[Hg] Niru Harrington MD Work Phone: [facility] 09-10-2024 13:59-0400 Systolic blood pressure 128 mm[Hg] Niru Harrington MD Work Phone: [facility] 08-27-2024 09:17-0400 Body mass index (BMI) [Ratio] 49.26 kg/m2 Niru Harrington MD Work Phone: [facility] 08-27-2024 09:17-0400 Body weight 130.18 kg Niru Harrington MD Work Phone: [facility] 08-27-2024 09:17-0400 Diastolic blood pressure 84 mm[Hg] Niru Harrington MD Work Phone: [facility] 08-27-2024 09:17-0400 Systolic blood pressure 136 mm[Hg] Niru Harrington MD Work Phone: [facility] 08-03-2024 13:50-0400 Body mass index (BMI) [Ratio] 48 kg/m2 Rachel Mosqueda APRN.CNM Work Phone: [facility] 08-03-2024 13:50-0400 Body weight 128.82 kg Rachel Mosqueda APRN.CNM Work Phone: [facility] 08-03-2024 13:50-0400 Diastolic blood pressure 82 mm[Hg] Rachel Mosqueda APRN.CNM Work Phone: [facility] 08-03-2024 13:50-0400 Systolic blood pressure 135 mm[Hg] Rachel Mosqueda APRN.CNM Work Phone: [facility] 07-27-2024 09:41-0400 Body mass index (BMI) [Ratio] 48.16 kg/m2 Theo Boyle MD Work Phone: [facility] 07-27-2024 09:41-0400 Body weight 129.28 kg Theo Boyle MD Work Phone: [facility] 07-27-2024 09:41-0400 Diastolic blood pressure 82 mm[Hg] Theo Boyle MD Work Phone: [facility] 07-27-2024 09:41-0400 Systolic blood pressure 130 mm[Hg] Theo Boyle MD Work Phone: [facility] 07-27-2024 08:37-0400 Body mass index (BMI) [Ratio] 48.3 kg/m2 [facility] 07-27-2024 08:37-0400 Body weight 129.64 kg [facility] 06-24-2024 09:18-0500 Body mass index (BMI) [Ratio] 47.18 kg/m2 Niru Harrington MD Work Phone: [facility] 06-24-2024 09:18-0500 Body weight 126.64 kg Niru Harrington MD Work Phone: [facility] 06-24-2024 09:18-0500 Diastolic blood pressure 82 mm[Hg] Niru Harrington MD Work Phone: [facility] 06-24-2024 09:18-0500 Systolic blood pressure 120 mm[Hg] Niru Harrington MD Work Phone: [facility] 05-24-2024 08:05-0500 Body mass index (BMI) [Ratio] 46.64 kg/m2 Faisal Collins APRN.TILT TRAY DRIVER Work Phone: [facility] 05-24-2024 08:05-0500 Body weight 125.19 kg Faisal Collins APRN.TILT TRAY DRIVER Work Phone: [facility] 05-24-2024 08:05-0500 Diastolic blood pressure 80 mm[Hg] Faisal Collins APRN.TILT TRAY DRIVER Work Phone: [facility] 05-24-2024 08:05-0500 Systolic blood pressure 120 mm[Hg] Faisal Collins STORE GROUP MANAGER.TILT TRAY DRIVER Work Phone: [facility] 04-29-2024 09:26-0500 Body mass index (BMI) [Ratio] 46.47 kg/m2 Ankita Carrillo MD Work Phone: [facility] 04-29-2024 09:26-0500 Body weight 124.74 kg Ankita Carrillo MD Work Phone: [facility] 04-29-2024 09:26-0500 Diastolic blood pressure 84 mm[Hg] Ankita Carrillo MD Work Phone: [facility] 04-29-2024 09:26-0500 Systolic blood pressure 122 mm[Hg] Ankita Carrillo MD Work Phone: [facility] 03-22-2024 08:49-0500 Body height 163.8 cm Deb Richard STORE GROUP MANAGER.CNM Work Phone: [facility] 03-22-2024 08:49-0500 Body mass index (BMI) [Ratio] 47.49 kg/m2 Deb Plotchiki STORE GROUP MANAGER.CNM Work Phone: [facility] 03-22-2024 08:49-0500 Body weight 127.46 kg Deb Richard STORE GROUP MANAGER.CNM Work Phone: [facility] 03-22-2024 08:49-0500 Diastolic blood pressure 86 mm[Hg] Deb Richard STORE GROUP MANAGER.CNM Work Phone: [facility] 03-22-2024 08:49-0500 Systolic blood pressure 168 mm[Hg] Deb Plotchiki STORE GROUP MANAGER.CNM Work Phone: [facility] 02-16-2024 09:35-0400 Body mass index (BMI) [Ratio] 49.71 kg/m2 Darryl Adkins MD Work Phone: [facility] 02-16-2024 09:35-0400 Body weight 127.28 kg Darryl Adkins MD Work Phone: [facility] 02-16-2024 09:35-0400 Diastolic blood pressure 80 mm[Hg] Darryl Adkins MD Work Phone: [facility] 02-16-2024 09:35-0400 Systolic blood pressure 128 mm[Hg] Darryl Adkins MD Work Phone: [facility] 01-21-2024 13:57-0400 Diastolic blood pressure 82 mm[Hg] Erin Singh STORE GROUP MANAGER - TILT TRAY DRIVER Work Phone: [facility] 01-21-2024 13:57-0400 Systolic blood pressure 128 mm[Hg] Erin Singh STORE GROUP MANAGER - TILT TRAY DRIVER Work Phone: [facility] 01-21-2024 13:18-0400 Body height 160 cm Erin Singh STORE GROUP MANAGER - TILT TRAY DRIVER Work Phone: [facility] 01-21-2024 13:18-0400 Body mass index (BMI) [Ratio] 49.39 kg/m2 Erin Singh STORE GROUP MANAGER - TILT TRAY DRIVER Work Phone: [facility] [employer] 01-21-2024 13:18-0400 Body weight 126.46 kg Erin Singh STORE GROUP MANAGER - TILT TRAY DRIVER Work Phone: [facility] [employer] 01-21-2024 13:18-0400 Heart rate 103 /min Erin Singh STORE GROUP MANAGER - TILT TRAY DRIVER Work Phone: [facility] [employer] 01-21-2024 13:18-0400 SaO2% (BldA) [Mass fraction] 98 % Erin Singh STORE GROUP MANAGER - TILT TRAY DRIVER Work Phone: [facility] [employer] 03-21-2023 09:44-0500 Body height 160 cm Erin Singh STORE GROUP MANAGER - TILT TRAY DRIVER Work Phone: [facility] [employer] 03-21-2023 09:44-0500 Body mass index (BMI) [Ratio] 47.47 kg/m2 Erin Singh STORE GROUP MANAGER - TILT TRAY DRIVER Work Phone: [facility] [employer] 03-21-2023 09:44-0500 Body temperature 98.29 [degF] Erin Singh STORE GROUP MANAGER - TILT TRAY DRIVER Work Phone: [facility] [employer] 03-21-2023 09:44-0500 Body weight 121.56 kg Erin Singh STORE GROUP MANAGER - TILT TRAY DRIVER Work Phone: [facility] [employer] 03-21-2023 09:44-0500 Diastolic blood pressure 83 mm[Hg] Erin Singh STORE GROUP MANAGER - TILT TRAY DRIVER Work Phone: [facility] [employer] 03-21-2023 09:44-0500 Heart rate 101 /min Erin Singh STORE GROUP MANAGER - TILT TRAY DRIVER Work Phone: [facility] [employer] 03-21-2023 09:44-0500 SaO2% (BldA) [Mass fraction] 98 % Erin Singh STORE GROUP MANAGER - TILT TRAY DRIVER Work Phone: [facility] [employer] [facility] 03-21-2023 09:44-0500 Systolic blood pressure 135 mm[Hg] Erin Singh STORE GROUP MANAGER - TILT TRAY DRIVER Work Phone: [facility] 03-17-2023 11:47-0500 Body height 162.6 cm Favian Mariee MD Work Phone: [facility] [employer] 03-17-2023 11:47-0500 Body mass index (BMI) [Ratio] 46.21 kg/m2 Favian Mariee MD Work Phone: [facility] [employer] 03-17-2023 11:47-0500 Body temperature 98.4 [degF] Favian Mariee MD Work Phone: [facility] [employer] 03-17-2023 11:47-0500 Body weight 122.11 kg Favian Mariee MD Work Phone: [facility] [employer] 03-17-2023 11:47-0500 Diastolic blood pressure 81 mm[Hg] Favian Mariee MD Work Phone: [facility] [employer] 03-17-2023 11:47-0500 Heart rate 100 /min Favian Mariee MD Work Phone: [facility] [employer] 03-17-2023 11:47-0500 SaO2% (BldA) [Mass fraction] 95 % Favian Mariee MD Work Phone: [employer] 03-17-2023 11:47-0500 Systolic blood pressure 136 mm[Hg] Favian Mariee MD Work Phone: [facility] [employer] 09-06-2022 07:00-0400 Body height 162.6 cm Erin Singh STORE GROUP MANAGER - TILT TRAY DRIVER Work Phone: [employer] 09-06-2022 07:00-0400 Body mass index (BMI) [Ratio] 45.14 kg/m2 Erin Singh STORE GROUP MANAGER - TILT TRAY DRIVER Work Phone: [employer] 09-06-2022 07:00-0400 Body temperature 97.81 [degF] Erin Singh STORE GROUP MANAGER - TILT TRAY DRIVER Work Phone: [facility] [employer] 09-06-2022 07:00-0400 Body weight 119.3 kg Erin Singh STORE GROUP MANAGER - TILT TRAY DRIVER Work Phone: [employer] 09-06-2022 07:00-0400 Diastolic blood pressure 86 mm[Hg] Erin Singh STORE GROUP MANAGER - TILT TRAY DRIVER Work Phone: [employer] 09-06-2022 07:00-0400 Heart rate 96 /min Erin Singh STORE GROUP MANAGER - TILT TRAY DRIVER Work Phone: [facility] [employer] 09-06-2022 07:00-0400 SaO2% (BldA) [Mass fraction] 98 % Erin Singh STORE GROUP MANAGER - TILT TRAY DRIVER Work Phone: [employer] 09-06-2022 07:00-0400 Systolic blood pressure 126 mm[Hg] Erin Singh STORE GROUP MANAGER - TILT TRAY DRIVER Work Phone: [facility] [employer] 02-15-2019 04:05-0400 BP Diastolic 87 mm[Hg] [facility] [place] 02-15-2019 04:05-0400 BP Systolic 140 mm[Hg] [facility] [place] 02-15-2019 04:05-0400 Pulse (Heart Rate) 96 /min [facility] [place] 02-15-2019 04:05-0400 Pulse Oximetry 99 % Dante [employer] [place] , [place] 02-15-2019 04:05-0400 Respiratory Rate 16 /min Dante Hathaway [facility], [place] 02-15-2019 02:48-0400 BMI (Body Mass Index) 42.91 kg/m2 Dante Hathaway [facility], [place] 02-15-2019 02:48-0400 Body Temperature 97.5 [degF] Dante Hathaway [facility], [place] 02-15-2019 02:48-0400 Body weight 113.4 [facility] [place] 02-15-2019 02:48-0400 Height 162.6 cm [facility] [place] Encounters Encounter Date Encounter Type [...] 10-18-2024 End: 10-18-2024 ambulatory Erin Singh NP Facility:[facility] Start: 10-14-2024 End: 10-14-2024 Patient encounter procedure [employer] [facility] Comment on above: Obesity affecting pr egnancy in second trimester, unspecified obesity type (HCC) (Primary Dx); Single umbilical artery affecting management of mother, antepartum, single gestation (HCC) Start: 10-14-2024 End: 10-14-2024 ambulatory FAVIAN MARIEE Facility:[facility] Start: 10-11-2024 End: 10-11-2024 ambulatory GITA NATION Facility:[facility] Start: 10-11-2024 End: 10-11-2024 Patient encounter procedure Gita Nation MD Work Phone: OB/Gynecology Comment on above: 36 weeks gestation o f (HCC) (Primary Dx); Supervision of high risk in third trimester (HCC); Chronic hypertension affecting (HCC); Obesity during in third trimester (HCC); Single umbilical artery affecting management of mother, antepartum, single gestation (HCC) Start: 10-11-2024 End: 10-11-2024 ambulatory NIRU LEN Facility:[facility] Start: 10-07-2024 End: 10-07-2024 ambulatory NIRU LEN Facility:[facility] Start: 10-07-2024 End: 10-07-2024 Telephone encounter Darryl Adkins MD Work Phone: OB/Gynecology Comment on above: OB Elevated BP Start: 10-07-2024 End: 10-07-2024 ambulatory Erin Singh NP-C Work Phone: [facility] Work Phone: Start: 10-07-2024 End: 10-07-[address] [facility] Work Phone: Comment on above: Single [...] Start: 10-04-2024 End: 10-04-2024 ambulatory NIRU LEN Facility:[facility] Start: 09-30-2024 End: 09-30-2024 Patient encounter [...] Start: 09-30-2024 End: 09-30-2024 ambulatory FAVIAN DONISMER Facility:[facility] Start: 09-24-2024 End: 09-24-2024 Patient encounter [...] Start: 09-24-2024 End: 09-24-2024 ambulatory FAVIAN MARIO [facility] Facility:[facility] Start: 09-21-2024 End: 09-21-2024 ambulatory [facility] Facility:[facility] Start: 09-21-2024 End: 09-21-2024 Patient encounter procedure [employer] [facility] Comment on [...] Start: 09-14-2024 End: 09-14-2024 ambulatory JESSI BOJORQUEZ Facility:[facility] Start: 09-13-2024 End: 09-13-[address] Darryl Adkins DO [facility] Work Phone: Start: 09-13-2024 End: 09-13-2024 ambulatory Erin MONTAÑO Work Phone: [facility] Work Phone: Start: 09-13-2024 End: 09-13-2024 Telephone encounter Darryl Adkins MD Work Phone: OB/Gynecology Comment on above: Orders Start: 09-10-2024 End: 09-10-2024 ambulatory FAVIAN MARIEE Facility:[facility] Start: 09-10-2024 End: 09-10-2024 Patient encounter procedure Niru Harrington MD Work Phone: OB/Gynecology Comment on above: Supervision of high risk in third trimester (HCC) (Primary Dx); Obesity during in third trimester (HCC); Single umbilical artery affecting management of mother, antepartum, single gestation (HCC); 31 weeks gestation of (HCC) Start: 08-27-2024 End: 08-27-2024 ambulatory FAVIAN DONISMER Facility:[facility] Start: 08-27-2024 End: 08-27-2024 Patient encounter [...] 08-15-2024 End: 08-15-2024 ambulatory DONNA COURTNEY Facility:[facility] Start: 08-10-2024 End: 08-10-2024 ambulatory FAVIAN MARIEE Facility:[facility] Start: 08-10-2024 End: 08-18-2024 Patient encounter procedure [employer] [facility] Comment on [...] 08-03-2024 End: 08-03-2024 ambulatory Fabienne Del Cid [facility] Work Phone: [facility] Comment on above: Testing of female fo r genetic disease carrier status (Primary Dx); Single umbilical artery, maternal, antepartum (HCC); Abnormal ultrasound Start: 08-03-2024 End: 08-03-2024 Telemedicine consultation with patient Fabienne Del Cid [facility] Work Phone: [facility] Start: 07-30-2024 End: [...] Start: 07-27-2024 End: 07-27-2024 ambulatory FAVIAN MARIEE Facility:[facility] Start: 07-27-2024 End: 07-27-2024 ambulatory GITA NATION Facility:[facility] Start: 07-27-2024 End: 07-27-2024 Patient encounter [...] Start: 06-24-2024 End: 06-24-2024 ambulatory FAVIAN MARIEE Facility:[facility] Start: 06-24-2024 End: 06-24-2024 Patient encounter [...] Start: 05-24-2024 End: 05-24-2024 ambulatory FAISAL COLLINS Facility:[facility] Start: 05-24-2024 End: 05-24-2024 Patient encounter procedure Faisal Collins APRN.TILT TRAY DRIVER Work Phone: OB/Gynecology Comment on above: Supervision of high risk in second trimester (Primary Dx); 16 weeks gestation of ; Obesity affecting in second trimester, unspecified obesity type Start: 04-29-2024 End: 04-29-2024 ambulatory FAVIAN MARIEE Facility:[facility] Start: 04-29-2024 End: 04-29-2024 Patient encounter procedure Ankita Carrillo MD Work Phone: OB/Gynecology Comment on above: Supervision of high risk in first trimester (Primary Dx); 12 weeks gestation of ; Obesity affecting in first trimester, unspecified obesity type Start: 04-22-2024 End: 04-22-2024 ambulatory FAVIAN MARIEE Facility:[facility] Start: 04-22-2024 End: 04-22-2024 Patient encounter procedure [employer] [facility] Comment on above: Confirm cardia c activity using ultrasound (Primary Dx); 11 weeks gestation of Start: 04-02-2024 End: 04-02-2024 ambulatory FAVIAN MARIEE Facility:[facility] Start: 04-01-2024 End: 04-01-2024 ambulatory Darryl Adkins MD Work Phone: OB/Gynecology Comment on above: Urine culture Start: 03-22-2024 End: 03-22-2024 ambulatory FAVIAN MARIEE Facility:[facility] Start: 03-22-2024 End: 03-22-2024 Patient encounter procedure Deb Richard STORE GROUP MANAGER.WENDYM Work Phone: OB/Gynecology Comment on above: 7 [...] Emergency department patient visit Erin Singh NP Facility:[facility] Start: 03-11-2024 End: 03-11-2024 ambulatory DARRYL ADKINS Facility:[facility] Start: 03-10-2024 End: 03-10-2024 Telephone encounter Niru Harrington MD Work Phone: OB/Gynecology Comment on above: Results Start: 03-09-2024 End: 03-09-2024 ambulatory DARRYL ADKINS Facility:[facility] Start: 03-08-2024 End: 03-08-2024 Refill Darryl Adkins MD Work Phone: OB/Gynecology Comment on above: Med Change Request Start: 03-05-2024 End: 03-05-2024 ambulatory DARRYL ADKINS Facility:[facility] Start: 03-04-2024 End: 03-04-2024 Telephone encounter Darryl Adkins MD Work Phone: OB/Gynecology Comment on above: Orders Results; Appointment Start: 03-03-2024 End: 03-03-2024 ambulatory FAVIAN MARIEE Facility:[facility] Start: 03-01-2024 End: 03-02-2024 Patient encounter [...] Start: 02-16-2024 End: 02-16-2024 ambulatory DARRYL ADKINS Facility:[facility] Start: 02-16-2024 End: 02-16-2024 Patient encounter procedure Darryl Adkins MD Work Phone: OB/Gynecology Comment on above: History of miscarria ge (Primary Dx) Start: 01-22-2024 ambulatory Erin Singh EXAMINATION SUPERVISOR Facility :[facility] Start: 01-21-2024 End: 01-21-2024 Office outpatient visit 25 minutes Erin Singh STORE GROUP MANAGER - TILT TRAY DRIVER Work Phone: [facility] Comment on above: History of multiple miscarriages (Primary Dx); Amenorrhea; Morbid obesity with BMI of 45.0-49.9, adult (HCC); Mild episode of recurrent major depressive disorder (HCC); Anxiety; Screening for lipoid disorders; Screening for diabetes mellitus; Encounter for screening for HIV; Need for hepatitis C screening test; Influenza vaccine refused Start: 01-21-2024 End: 01-21-2024 ambulatory ERIN SINGH [facility] Start: 01-06-2024 End: 01-06-2024 ambulatory Erin Singh EXAMINATION SUPERVISOR Facility:[facility] Start: 01-01-2024 End: 01-01-2024 ambulatory Erin Singh EXAMINATION SUPERVISOR Facility:[facility] Start: 12-30-2023 End: 12-30-2023 ambulatory Erin Singh EXAMINATION SUPERVISOR Facility:[facility] Start: 12-08-2023 End: 12-08-2023 ambulatory Erin Singh EXAMINATION SUPERVISOR Facility:[facility] Start: 11-20-2023 End: 11-20-2023 ambulatory Erin Singh EXAMINATION SUPERVISOR Facility:[facility] Start: 11-13-2023 End: 11-13-2023 ambulatory Erin Singh EXAMINATION SUPERVISOR Facility:[facility] Start: 11-11-2023 End: 11-11-2023 ambulatory Erin Singh EXAMINATION SUPERVISOR Facility:[facility] Start: 11-11-2023 End: 11-11-2023 ambulatory Erin Singh EXAMINATION SUPERVISOR Facility:[facility] Start: 03-21-2023 ambulatory Joann Chicas RN [facility] Start: 03-21-2023 Patient encounter procedure Joann Chicas RN [facility] Start: 03-21-2023 End: 03-21-2023 Office outpatient visit 15 minutes Erin Singh STORE GROUP MANAGER - TILT TRAY DRIVER Work Phone: [facility] Comment on above: Bilateral acute sero us otitis media, recurrence not specified (Primary Dx); Pharyngitis, unspecified etiology Start: 03-17-2023 ambulatory Deloris diaz RN [facility] Start: 03-17-2023 Patient encounter procedure Deloris Louise RN [facility] Start: 03-17-2023 End: 03-17-2023 Office outpatient visit 15 minutes Favian Mariee MD Work Phone: [facility] Comment on above: Acute bacterial conj unctivitis of right eye (Primary Dx); Sore throat Start: 09-06-2022 End: 09-06-2022 Office outpatient visit 15 minutes Erin Singh STORE GROUP MANAGER - TILT TRAY DRIVER Work Phone: [facility] Comment on above: Urinary frequency (P rimary Dx); Dysuria; Leukocytes in urine Start: 04-24-2022 Telephone encounter Erin Abdi STORE GROUP MANAGER - TILT TRAY DRIVER Work Phone: [facility] Comment on above: Results (Cardiac Gabriela nt Monitor) Start: 02-15-2019 End: 02-15-2019 Emergency department patient visit Dante Hathaway Work Phone: [facility] ED Comment on above: Nausea vomiting and diarrhea (Primary Dx) Procedures Date Procedure Procedure Detail Performing Clinician Start: 10-18-2024 Urnls dip stick/tabl et rgnt non-auto w/o micrscp Deb Richard STORE GROUP MANAGER.CNM Work Phone: Start: 10-14-2024 Us preg uterus [...] et rgnt non-auto w/o micrscp Rachel Mosqueda STORE GROUP MANAGER.CNM Work Phone: Start: 09-21-2024 Us preg uterus [...] Speci men Type: BLOOD SPECIMEN Ordering Facility: [facility] Address: [place] [address] Performed By: #### 2 [id number], [id number] #### [facility] CLIA [id number] [address] [place] [address] [place] Start: 04-22-2024 Us nuchal translucency 1st gestation Deb Cantuchiki STORE GROUP MANAGER.CNM Work Phone: Start: 03-22-2024 Us uterus limited 1/> fetuses Deb Plotchiki STORE GROUP MANAGER.CNM Work Phone: Start: 09-06-2022 Urnls dip stick/tabl et rgnt non-auto w/o micrscp Erin Singh STORE GROUP MANAGER - TILT TRAY DRIVER Work Phone: Start: 04-05-2022 Microscopic observat ion [Identifier] in Cervix by Cyto stain Erin Singh STORE GROUP MANAGER - TILT TRAY DRIVER Work Phone: Start: 02-15-2019 Heterophile antibodi es screen Dante Hathaway Work Phone: Start: 02-15-2019 Iaadiadoo influenza Coral Hathaway Work Phone: H/O: surgery Status post dila tion and curettage Erin Singh EXAMINATION SUPERVISOR-C Work Phone: Plan of Treatment Date Care Activity Detail Author Start: 2059 RSV Immunization age d 60 or older (1 - 1-dose 60+ series) RSV Immunization aged 60 or older (1 - 1-dose 60+ series) [facility] [employer] Start: 11-02-2049 Zoster Vaccines (1 of 2) Zoster Vacc kathe (1 of 2) [facility] Start: 04-05-2025 Screening for malign ant neoplasm of cervix [facility] Start: 01-20-2025 COVID-19 Vaccine ( season) COVID-19 Vaccine ( season) [facility] Comment on above: Postponed from 12/27 (Patient Refused) Start: 01-20-2025 DTaP/Tdap/Td Vaccine s (7 - Td or Tdap) DTaP/Tdap/Td Vaccines (7 - Td or Tdap) [facility] Comment on above: Postponed from 12/22 (Patient Refused) Start: 01-20-2025 HPV Vaccines (1 - 3- dose series) HPV Vaccines (1 - 3-dose series) [facility] Comment on above: Postponed from 11/02 (Patient Refused) Start: 12-27-2024 Influenza vaccination Influenz a Vaccine (Season Ended) [facility] Start: 10-28-2024 End: 10-28-2024 Patient encounter procedure 10/28/2024 10:50 AM EDT Office Visit OB/Gynecology [address] [place] [id number] Niru Harrington MD [address] [place] [address] Post OB/Gynecology Comment on above: Post Start: 10-25-2024 Influenza vaccination Influenza Vacc ine (#1) [facility] Comment on above: Postponed from 12/27 (Patient Refused) Start: 10-21-2024 End: 10-21-2024 Patient encounter procedure 10/21/2024 10:00 AM EDT Routine Office Visit Maternal Medicine [address] [place] [address] [facility] Comment on above: Growth Start: 10-18-2024 End: 10-18-2024 Patient encounter procedure OB/Gynecology Comment on above: NST Nst/ OB Start: 10-14-2024 End: 10-14-2024 Patient encounter procedure 10/14/2024 11:00 AM EDT Routine Office Visit Maternal Medicine [address] [place] [id number] [facility] Comment on above: [facility] Start: 10-11-2024 End: 01-10-2025 Protein/Creatinine [Mass Ratio] in Urine [facility] Work Phone: Comment on above: Expected: 10/11/2024 , Expires: 01/10/2025 Start: 10-11-2024 End: 10-11-2024 Patient encounter procedure OB/Gynecology Comment on above: NST /OB OB Start: 10-07-2024 End: 10-07-2024 Patient encounter procedure 10/07/2024 3:00 PM EDT Routine Office Visit Maternal Medicine [address] [place] [address] BPP/growth Maternal Medicine Comment on above: BPP/growth Start: 10-07-2024 Nonstress test [facility] Start: 10-07-2024 Obstetric monitoring [facility] Start: 10-07-2024 Vital signs measurements [facility] Start: 10-07-2024 [facility] Start: 10-07-2024 Patient discharge [facility] Start: 10-04-2024 End: 10-04-2024 Patient encounter procedure [...] above: Growth OB Start: 09-13-2024 Nonstress test [facility] Start: 09-13-2024 Obstetric monitoring [facility] Start: 09-13-2024 [facility] Start: 09-13-2024 Vital signs measurements [facility] Start: 09-13-2024 Patient discharge [facility] Start: 09-09-2024 End: 09-09-2024 Patient encounter procedure 09/09/2024 8:00 AM EDT Routine Office Visit OB/Gynecology [address] [place] [address] Faisal Collins APRN.[employer]T [employer]IVER [address] [place] [address] OB OB/Gynecology Comment on above: OB Start: 08-27-2024 End: 08-27-2024 Patient encounter procedure Maternal Medicine Comment on above: Growth US/OB Start: 08-18-2024 End: 08-18-2024 Patient encounter procedure 08/18/2024 2:20 PM EDT Routine Office Visit OB/Gynecology [address] [place] [address] Jessi Ramirez MD [address] [place] [address] OB OB/Gynecology Comment on above: OB Start: 08-10-2024 End: 08-10-2024 Patient encounter procedure Maternal Medicine Comment on above: growth est mfm F/u Anomaly - by EDC , ?hypospadias w/ shortened shaft and blunt tip, 2VC, BMI 48; Start: 08-03-2024 End: 08-03-2024 Patient encounter procedure 08/03/2024 2:30 PM EDT Routine Office Visit OB/Gynecology [address] [place] [address] Rachel Mosqueda APRN.CNM [address] [place] [address] BP CHECK OB/Gynecology Comment on above: BP CHECK Start: 08-03-2024 End: 11-02-2024 CARRIER SCREEN, STANDARD [facility] Work Phone: Comment on above: Expected: 08/03/2024 , Expires: 11/02/2024 Start: 08-03-2024 End: 08-03-2024 ambulatory 08/03/2024 9:00 AM EDT [facility] [address] [facility] [address] [place], [place] [id number] Fabienne Del Cid, ALEAH [address] [place] [address] Single umbilical artery, maternal, antepartum (HCC) [O09.899] [facility] Comment on above: Single umbilical art libia, maternal, antepartum (HCC) [O09.899] Start: 07-27-2024 End: 10-26-2024 ANEMIA REFLEX PANEL [facility] Comment on above: Expected: 07/27/2024 , Expires: [...] for diabetes mellitus Expected: 07/27/2024, Expires: 07/27/2025 [facility] Work Phone: Comment on above: Expected: 07/27/2024 , Expires: 07/27/2025 Start: 07-27-2024 End: 10-26-2024 Protein/Creatinine [Mass Ratio] in Urine PROTEIN / CREATININE RATIO Lab Routine Supervision of high risk in second trimester Expected: 07/27/2024, Expires: 10/26/2024 [facility] Comment on above: Expected: 07/27/2024 , Expires: 10/26/2024 Start: 07-27-2024 End: 07-27-2025 SYPHILIS TREPONEMAL W/REFLEX [facility] Comment on above: Expected: 07/27/2024 , Expires: 07/27/2025 Start: 07-27-2024 End: 07-27-2024 Patient encounter procedure Maternal Medicine Comment on above: Single umbilical art libia, maternal, antepartum [O09.899] OB [facility] Start: 07-20-2024 Depression Monitoring Depression [facility] Start: 07-06-2024 End: 07-06-2024 ambulatory 07/06/2024 9:00 AM EDT Procedure Pediatric Cardiology [address] [facility] [place] [address] Meli Anne MD [address] [place] [address] Single umbilical artery affecting management of mother, antepartum, single gesta.. Pediatric Cardiology Comment on above: Single umbilical art libia affecting management of mother, antepartum, single gesta.. Start: 07-06-2024 End: 07-06-2024 Patient encounter procedure 07/06/2024 9:00 AM EDT Office Visit Pediatric Cardiology [address] [place], [place] [id number] Single umbilical artery affecting management of mother, antepartum, single gesta.. Pediatric Cardiology Comment on above: Single umbilical art libia affecting management of mother, antepartum, single gesta.. Start: 06-24-2024 End: 06-24-2025 OBSTETRIC ULTRASOUND WHI OBSTETRIC ULTRASOUND [facility]I Anc Imaging Routine Single umbilical artery, maternal, antepartum Expected: 06/24/2024, Expires: 06/24/2025 [facility] Work Phone: Comment on above: Expected: 06/24/2024 , Expires: 06/24/2025 Start: 06-24-2024 End: 06-24-2024 Patient encounter procedure Maternal Medicine Comment on above: Anatomy Scan OB Routine Start: 05-24-2024 End: 05-24-2024 Patient encounter procedure 05/24/2024 8:00 AM EST Routine Office Visit OB/Gynecology [address] [place] [address] Faisal Collins APRN.[employer] T[employer] 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 [address] OB Routine OB/Gynecology Comment on above: OB Routine Start: 04-29-2024 End: 07-29-2024 Chromosome 21 trisomy [Presence] in Blood or Tissue by Cytogenetics [facility] Comment on above: Expected: 04/29/2024 , Expires: 07/29/2024 Start: 04-29-2024 End: 04-29-2025 OBSTETRIC ULTRASOUND WHI OBSTETRIC ULTRASOUND [facility] Anc Imaging Routine 12 weeks gestation of Obesity affecting in first trimester, unspecified obesity type Supervision of high risk in first trimester Expected: 04/29/2024, Expires: 04/29/2025 [facility] Work Phone: Comment on above: Expected: 04/29/2024 , Expires: 04/29/2025 Start: 04-29-2024 End: 04-29-2024 Patient encounter procedure 04/29/2024 9:20 AM EST Routine Office Visit OB/Gynecology [address] [place], [place] [id number] Ankita Carrillo MD [address] [place] [address] Nuchal / OB OB/Gynecology Comment on above: Nuchal / OB Start: 04-22-2024 End: 04-22-2024 Patient encounter procedure OB/Gynecology Comment on above: 2nd OB Nuchal Start: 04-01-2024 End: 07-01-2024 Urinalysis complete panel - Urine URINALYSIS, WITH MICROSCOPIC Lab Routine Urinary frequency Urgency of urination Expected: 04/01/2024, Expires: 07/01/2024 [facility] Work Phone: Comment on above: Expected: 04/01/2024 , Expires: 07/01/2024 Start: 03-22-2024 End: 06-21-2024 ANEMIA REFLEX PANEL ANEMIA REFLEX PANEL Lab Routine Encounter for care in first trimester of first Expected: 03/22/2024, Expires: 06/21/2024 [facility] Work Phone: Comment on above: Expected: 03/22/2024 , Expires: 06/21/2024 Start: 03-22-2024 End: 06-21-2024 Hemoglobin A1c in Blood HEMOGLOBIN A1C Lab Routine Encounter for care in first trimester of first Expected: 03/22/2024, Expires: 06/21/2024 [facility] Comment on above: Expected: 03/22/2024 , Expires: 06/21/2024 Start: 03-22-2024 End: 06-21-2024 Hepatitis B virus surface Ag [Presence] in Serum HEPATITIS B SURFACE ANTIGEN Lab Routine Encounter for care in first trimester of first Expected: 03/22/2024, Expires: 06/21/2024 [facility] Comment on above: Expected: 03/22/2024 , Expires: 06/21/2024 Start: 03-22-2024 End: 06-21-2024 Hepatitis C virus Ab [Presence] in Serum HEPATITIS C ANTIBODY IA WITH CONFIRMATION Lab Routine Encounter for care in first trimester of first Expected: 03/22/2024, Expires: 06/21/2024 [facility] Comment on above: Expected: 03/22/2024 , Expires: 06/21/2024 Start: 03-22-2024 End: 06-21-2024 HIV 1+2 Ab [Presence] in Serum or Plasma by Immunoassay HIV 1/2 COMBO WITH REFLEX TO DIFFERENTIATION Lab Routine Encounter for care in first trimester of first Expected: 03/22/2024, Expires: 06/21/2024 [facility] Comment on above: Expected: 03/22/2024 , Expires: 06/21/2024 Start: 03-22-2024 End: 03-22-2025 NUCHAL TRANSLUCENCY WHI NUCHAL TRANSLUCENCY WHI Anc Imaging Routine Encounter for care in first trimester of first Expected: 03/22/2024, Expires: 03/22/2025 [facility] Comment on above: Expected: 03/22/2024 , Expires: 03/22/2025 Start: 03-22-2024 End: 06-21-2024 RUBELLA IGG ANTIBODY RUBELLA IGG ANTIBODY Lab Routine Encounter for care in first trimester of first Expected: 03/22/2024, Expires: 06/21/2024 [facility] Comment on above: Expected: 03/22/2024 , Expires: 06/21/2024 Start: 03-22-2024 End: 06-21-2024 SYPHILIS TREPONEMAL W/REFLEX SYPHILIS TREPONEMAL W/REFLEX Lab Routine Encounter for care in first trimester of first Expected: 03/22/2024, Expires: 06/21/2024 [facility] Comment on above: Expected: 03/22/2024 , Expires: 06/21/2024 Start: 03-22-2024 End: 06-21-2024 TYPE + SCREEN TYPE + SCREEN Blood Bank Routine Encounter for care in first trimester of first Expected: 03/22/2024, Expires: 06/21/2024 [facility] Comment on above: Expected: 03/22/2024 , Expires: 06/21/2024 Start: 03-22-2024 End: 03-22-2024 Patient encounter procedure 03/22/2024 8:45 AM EST Initial Office Visit OB/Gynecology [address] [place] [address] Deb Richard APRN.CN [address] [place] [address] 1st OB + US to confirm OB/Gynecology Comment on above: 1st OB + US to confi rm Start: 03-11-2024 End: 03-11-2024 ambulatory 03/11/2024 8:45 AM EST Results Only John Enamorado [facility] [address] [place] [address] [place] [facility] Start: 03-09-2024 End: 03-09-2024 ambulatory 03/09/2024 8:45 AM EST Results Only John Enamorado [facility] [address] [place] [address] [place] [facility] Start: 03-05-2024 End: 03-05-2024 ambulatory 03/05/2024 7:45 AM EST Results Only John Fryen [facility] [address] [place] [address] lab [place] [facility] Comment on above: lab Start: 03-03-2024 End: 03-03-2024 ambulatory 03/03/2024 8:00 AM EST Results Only John Jeterwn [facility] [address] [place] [address] Encounter for test, result positive [Z32.01] [facility] Comment on above: Encounter for pregna ncy test, result positive [Z32.01] Start: 02-17-2024 End: 02-17-2024 ambulatory 02/17/2024 10:00 AM EDT Procedure OB/Gynecology [address] [facility] [place] [address] Remote, [employer] [facility] [address] [facility] [place] [address] History of miscarriage [Z87.59] OB/Gynecology Comment on above: History of miscarria ge [Z87.59] Start: 02-16-2024 End: 02-15-2025 US Pelvis PELVIC US [facility]I Anc Imaging Routine History of miscarriage Expected: 02/16/2024, Expires: 02/15/2025 [facility] Work Phone: Comment on above: Expected: 02/16/2024 , Expires: 02/15/2025 Start: 01-21-2024 End: 01-20-2025 CBC W Auto Differential panel - Blood CBC auto differential Lab Routine History of multiple miscarriages Amenorrhea Morbid obesity with BMI of 45.0-49.9, adult (HCC) Mild episode of recurrent major depressive disorder (HCC) Anxiety Expected: 01/21/2024 (Approximate), Expires: 01/20/2025 [employer] Comment on above: Expected: 01/21/2024 (Approximate), Expires: 01/20/2025 Start: 01-21-2024 End: 01-20-2025 Comprehensive metabolic 1998 panel - Serum or Plasma Comprehensive metabolic panel Lab Routine History of multiple miscarriages Amenorrhea Morbid obesity with BMI of 45.0-49.9, adult (HCC) Mild episode of recurrent major depressive disorder (HCC) Anxiety Screening for diabetes mellitus Expected: 01/21/2024 (Approximate), Expires: 01/20/2025 [employer] Comment on above: Expected: 01/21/2024 (Approximate), Expires: 01/20/2025 Start: 01-21-2024 End: 01-20-2025 Estrogens, total Estrogens, total Lab Routine History of multiple miscarriages Amenorrhea Morbid obesity with BMI of 45.0-49.9, adult (HCC) Expected: 01/21/2024 (Approximate), Expires: 01/20/2025 [employer] Comment on above: Expected: 01/21/2024 (Approximate), Expires: 01/20/2025 Start: 01-21-2024 End: 01-20-2025 Factor 5 leiden Factor 5 leiden Lab Routine History of multiple miscarriages Amenorrhea Expected: 01/21/2024 (Approximate), Expires: 01/20/2025 [facility] [employer] Comment on above: Expected: 01/21/2024 (Approximate), Expires: 01/20/2025 Start: 01-21-2024 End: 01-20-2025 Fibrinogen [Mass/volume] in Platelet poor plasma by Coagulation assay Fibrinogen Lab Routine History of multiple miscarriages Amenorrhea Expected: 01/21/2024 (Approximate), Expires: 01/20/2025 [employer] Comment on above: Expected: 01/21/2024 (Approximate), Expires: 01/20/2025 Start: 01-21-2024 End: 01-20-2025 Follicle stimulating hormone Follicle stimulating hormone Lab Routine History of multiple miscarriages Amenorrhea Morbid obesity with BMI of 45.0-49.9, adult (HCC) Expected: 01/21/2024 (Approximate), Expires: 01/20/2025 [employer] Comment on above: Expected: 01/21/2024 (Approximate), Expires: 01/20/2025 Start: 01-21-2024 End: 01-20-2025 Hemoglobin A1c measurement Hemoglobin A1c Lab Routine History of multiple miscarriages Amenorrhea Screening for diabetes mellitus Expected: 01/21/2024 (Approximate), Expires: 01/20/2025 [employer] Comment on above: Expected: 01/21/2024 (Approximate), Expires: 01/20/2025 Start: 01-21-2024 End: 01-20-2025 Hepatitis C virus Ab [Presence] in Serum or Plasma by Immunoassay Hepatitis C antibody Lab Routine Need for hepatitis C screening test Expected: 01/21/2024 (Approximate), Expires: 01/20/2025 [employer] Comment on above: Expected: 01/21/2024 (Approximate), Expires: 01/20/2025 Start: 01-21-2024 End: 01-20-2025 HIV 1+2 Ab+HIV1 p24 Ag [Presence] in Serum or Plasma by Immunoassay HIV-1 and HIV-2 Antigen-Antibody Screen Lab Routine Encounter for screening for HIV Expected: 01/21/2024 (Approximate), Expires: 01/20/2025 [facility] Comment on above: Expected: 01/21/2024 (Approximate), Expires: 01/20/2025 Start: 01-21-2024 End: 01-20-2025 Lipid 1996 panel - Serum or Plasma Lipid panel Lab Routine History of multiple miscarriages Amenorrhea Screening for lipoid disorders Expected: 01/21/2024 (Approximate), Expires: 01/20/2025 [facility] Comment on above: Expected: 01/21/2024 (Approximate), Expires: 01/20/2025 Start: 01-21-2024 End: 01-20-2025 LUPUS ANTICOAGULANT EVALUATION WITH REFLEX (BKR QUEST) LUPUS ANTICOAGULANT EVALUATION WITH REFLEX (BKR QUEST) Lab Routine History of multiple miscarriages Amenorrhea Expected: 01/21/2024 (Approximate), Expires: 01/20/2025 [facility] Comment on above: Expected: 01/21/2024 (Approximate), Expires: 01/20/2025 Start: 01-21-2024 End: 01-20-2025 Luteinizing hormone Luteinizing hormone Lab Routine History of multiple miscarriages Amenorrhea Morbid obesity with BMI of 45.0-49.9, adult (HCC) Expected: 01/21/2024 (Approximate), Expires: 01/20/2025 [facility] [employer] [facility] Comment on above: Expected: 01/21/2024 (Approximate), Expires: 01/20/2025 Start: 01-21-2024 End: 01-20-2025 Prolactin Prolactin Lab Routine History of multiple miscarriages Amenorrhea Morbid obesity with BMI of 45.0-49.9, adult (HCC) Expected: 01/21/2024 (Approximate), Expires: 01/20/2025 [facility] Comment on above: Expected: 01/21/2024 (Approximate), Expires: 01/20/2025 Start: 01-21-2024 End: 01-20-2025 Protein C activity Protein C activity Lab Routine History of multiple miscarriages Amenorrhea Expected: 01/21/2024 (Approximate), Expires: 01/20/2025 [facility] Comment on above: Expected: 01/21/2024 (Approximate), Expires: 01/20/2025 Start: 01-21-2024 End: 01-20-2025 Protein S, total and free Protein S, total and free Lab Routine History of multiple miscarriages Amenorrhea Expected: 01/21/2024 (Approximate), Expires: 01/20/2025 [facility] [employer] Work Phone: Comment on above: Expected: 01/21/2024 (Approximate), Expires: 01/20/2025 Start: 01-21-2024 End: 01-20-2025 Prothrombin gene mutation Prothrombin gene mutation Lab Routine History of multiple miscarriages Amenorrhea Expected: 01/21/2024 (Approximate), Expires: 01/20/2025 [facility] [employer] [facility] Comment on above: Expected: 01/21/2024 (Approximate), Expires: 01/20/2025 Start: 01-21-2024 End: 01-20-2025 Thyrotropin [Units/volume] in Serum or Plasma TSH Lab Routine History of multiple miscarriages Amenorrhea Morbid obesity with BMI of 45.0-49.9, adult (HCC) Mild episode of recurrent major depressive disorder (HCC) Anxiety Expected: 01/21/2024 (Approximate), Expires: 01/20/2025 [facility] [facility] Comment on above: Expected: 01/21/2024 (Approximate), Expires: 01/20/2025 Start: 01-21-2024 End: 01-20-2025 Thyroxine (T4) free [Mass/volume] in Serum or Plasma T4, free Lab Routine History of multiple miscarriages Amenorrhea Morbid obesity with BMI of 45.0-49.9, adult (HCC) Mild episode of recurrent major depressive disorder (HCC) Anxiety Expected: 01/21/2024 (Approximate), Expires: 01/20/2025 [facility] [employer] [facility] Comment on above: Expected: 01/21/2024 (Approximate), Expires: 01/20/2025 Start: 01-21-2024 End: 01-20-2025 Triiodothyronine (T3) Free [Mass/volume] in Serum or Plasma T3, free Lab Routine History of multiple miscarriages Amenorrhea Morbid obesity with BMI of 45.0-49.9, adult (HCC) Mild episode of recurrent major depressive disorder (HCC) Anxiety Expected: 01/21/2024 (Approximate), Expires: 01/20/2025 [facility] Comment on above: Expected: 01/21/2024 (Approximate), Expires: 01/20/2025 Start: 12-28-2023 Covid-19 Vaccine ( season) Covid-19 Vaccine ( season) [facility] Start: 12-28-2023 Influenza vaccination Influenza Vacc ine (#1) [facility] Start: 04-08-2023 Depresssion Monitoring Depresssion M onitoring [facility] Start: 03-04-2023 COVID-19 Vaccine (#1) COVID-19 Vacci ne (#1) [facility] Comment on above: Postponed from 05/05 (Other Patient Reasons) Start: 03-04-2023 Hepatitis C screening Hepatitis C Sc reening [facility] Comment on above: Postponed from 11/02 (Patient Refused) Start: 03-04-2023 HIV screening HIV Screening [facility] Comment on above: Postponed from 11/02 (Patient Refused) Start: 03-04-2023 HPV Vaccines (1 - 2- dose series) HPV Vaccines (1 - 2-dose series) [facility] Comment on above: Postponed from 11/02 (Patient Refused) Start: 02-04-2023 Diabetes mellitus screening Diabetes Screening [facility] Start: 01-26-2023 Lipid panel Lipid Panel [facility] Comment on above: Postponed from 11/02 (Patient Refused) Start: 12-27-2022 Influenza vaccination S [facility] Start: 12-22-2022 DTaP/Tdap/Td vaccine (7 - Td) DTaP/Tdap/Td vaccine (7 - Td) [place], [place] Start: 12-22-2022 DTaP/Tdap/Td Vaccine s (7 - Td or Tdap) DTaP/Tdap/Td Vaccines (7 - Td or Tdap) [facility] Start: 12-22-2022 Urine microalbumin profile DTaP,Tdap,Td Vaccine (7 - Td or Tdap) [facility] Start: 10-25-2022 Influenza vaccination Influenza Vacc ine (#1) [facility] Comment on above: Postponed from 12/27 (Patient Refused) Start: 10-07-2022 End: 10-07-2022 Patient encounter procedure [facility] Start: 09-06-2022 End: 09-07-2023 Bacteria identified in Urine by Culture Urine culture (clean catch) Microbiology Routine Urinary frequency Dysuria Leukocytes in urine Expected: 09/06/2022 (Approximate), Expires: 09/07/2023 [facility] Work Phone: Comment on above: Expected: 09/06/2022 (Approximate), Expires: 09/07/2023 Start: 09-01-2022 Depresssion Monitoring Depresssion M onitoring [facility] Start: 12-27-2018 Influenza vaccination Flu vaccine (# 1) [place], [place] Start: 10-02-2018 Chlamydia screen Chlamydia screen Me [place], [place] Start: 11-02-2017 Anxiety Screening Anxiety Screening [facility] Start: 11-02-2017 Depression Screening Depression Scre ening [facility] Start: 11-02-2017 Diabetes mellitus screening Diabetes Screening [facility] Start: 11-02-2017 Hepatitis C screening Hepatitis C Sc reening [facility] Start: 11-02-2017 HIV screening HIV Screening [facility] Start: 2015 Meningococcal B Vacc ine: Consider Based On Risk (1 of 2 - Patient Seeks Protection) Meningococcal B Vaccine: Consider Based On Risk (1 of 2 - Patient Seeks Protection) [facility] Start: 11-02-2014 HIV screen HIV screen [place], [place] Start: 11-02-2014 HPV Vaccine (1 - 3-d ose series) HPV Vaccine (1 - 3-dose series) [facility] Start: 11-02-2014 HPV vaccine (1 - Fem jah 3-dose series) HPV vaccine (1 - Female 3-dose series) [place], [place] Start: 11-02-2013 Peds To Adult Transi tion Annual Assessment Peds To Adult Transition Annual Assessment [facility] Start: 2011 Peds To Adult Transi tion Initial Discussion Peds To Adult Transition Initial Discussion [facility] Start: 11-02-2010 HPV Vaccines (1 - 2- dose series) HPV Vaccines (1 - 2-dose series) [facility] Start: 05-05-2000 COVID-19 Vaccine (#1) COVID-19 Vacci ne (#1) [facility] Start: 1999 HIV screening HIV Screening [facility] Start: 1999 Lipid panel Lipid Panel [facility] Bacteria identified in Urine by Culture URINE CULTURE Microbiology Routine Encounter for care in first trimester of first 03/22/2024 10:14 AM [facility] Chlamydia trachomatis+Neisseria gonorrhoeae DNA [Presence] in Unspecified specimen by GUS with probe detection GONORRHEA/CHLAMYDIA NAAT Lab Routine Encounter for care in first trimester of first 03/22/2024 10:14 AM [facility] End: 02-25-2025 Choriogonadotropin.beta subunit [Units/volume] in Serum or Plasma HCG QUANTITATIVE Lab Routine Encounter for test, result positive 2x per week for 2 Occurrences starting 02/26/2024 until 02/25/2025 [facility] Work Phone: Comment on above: 2x per week for 2 Oc currences starting 02/26/2024 until 02/25/2025 End: 03-04-2025 Choriogonadotropin.beta subunit [Units/volume] in Serum or Plasma HCG QUANTITATIVE Lab Routine Early stage of History of miscarriage 3x per week for 3 Occurrences starting 03/04/2024 until 03/04/2025 [facility] Work Phone: Comment on above: 3x per week for 3 Oc currences starting 03/04/2024 until 03/04/2025 End: 06-24-2025 ECHO ECHO Cardiology Routine Single umbilical artery affecting management of mother, antepartum, single gestation 1 Occurrences starting 06/24/2024 until 06/24/2025 [facility] Work Phone: Comment on above: 1 Occurrences starti ng 06/24/2024 until 06/24/2025 End: 11-08-2024 nonstress test NON-STRESS TEST Procedures Routine Chronic hypertension complicating or reason for care during childbirth (HCC) Once per week for 10 Occurrences starting 09/21/2024 until 11/08/2024 [facility] Comment on above: Once per week for 10 Occurrences starting 09/21/2024 until 11/08/2024 End: 02-23-2025 OBSTETRIC ULTRASOUND WHI OBSTETRIC ULTRASOUND WHI Anc Imaging Routine Single umbilical artery affecting management of mother, antepartum, single gestation (HCC) Once per month for 5 Occurrences starting 08/27/2024 until 02/23/2025 [facility] Comment on above: Once per month for 5 Occurrences starting 08/27/2024 until 02/23/2025 Patient Education Kick [facility] ED False Labor OB Triage: Return to Hospital or Notify Physician if you Experience: [facility] Work Phone: Patient referral [facility] Work Phone: ROUTINE, GR OUP B STREPTOCOCCUS BY PCR ROUTINE, GROUP B STREPTOCOCCUS BY PCR Microbiology Routine 36 weeks gestation of (HCC) Supervision of high risk in third trimester (HCC) Chronic hypertension affecting (HCC) Obesity during in third trimester (HCC) 10/11/2024 11:00 AM EDT [facility] URINE OB DIP B/O URINE OB DIP B/ O Lab Routine Obesity during in third trimester (HCC) Single umbilical artery affecting management of mother, antepartum, single gestation (HCC) Screening for diabetes mellitus Supervision of high risk in third trimester (HCC) 29 weeks gestation of (HCC) Ordered: 08/27/2024 [facility] Work Phone: Comment on above: Ordered: 08/27/2024 URINE OB DIP B/O URINE OB DIP B/ O Lab Routine Supervision of high risk in third trimester (HCC) Chronic hypertension complicating or reason for care during childbirth (HCC) Obesity during in third trimester (HCC) Single umbilical artery affecting management of mother, antepartum, single gestation (HCC) 33 weeks gestation of (HCC) Ordered: 09/21/2024 [facility] Work Phone: Comment on above: Ordered: 09/21/2024 URINE OB DIP B/O URINE OB DIP B/ O Lab Routine Supervision of high risk in third trimester (HCC) Chronic hypertension affecting (HCC) Obesity during in third trimester (HCC) Single umbilical artery affecting management of mother, antepartum, single gestation (HCC) 35 weeks gestation of (HCC) Ordered: 10/04/2024 [facility] Work Phone: Comment on above: Ordered: 10/04/2024 Immunizations Immunization Date Immunization Notes Care Provider Cristine hoffman 01-06-2018 meningococcal oligosaccharide (groups A, C, Y and W-135) diphtheria toxoid conjugate vaccine (MCV4O) [facility], [place] 12-22-2012 tetanus toxoid, redu luis diphtheria toxoid, and acellular pertussis vaccine, adsorbed [facility] 12-06-2004 diphtheria, tetanus toxoids and acellular pertussis vaccine [facility] 12-06-2004 measles, mumps, rube lla, and varicella virus vaccine [facility] 12-06-2004 poliovirus vaccine, inactivated [facility] 08-23-2003 diphtheria, tetanus toxoids and acellular pertussis vaccine [facility] 08-23-2003 haemophilus influenz ae type b vaccine, PRP-OMP conjugate [facility] 08-23-2003 hepatitis B vaccine, pediatric or pediatric/adolescent dosage [facility] 08-23-2003 measles, mumps, rube lla, and varicella virus vaccine [facility] 08-23-2003 poliovirus vaccine, inactivated [facility] 09-29-2000 diphtheria, tetanus toxoids and acellular pertussis vaccine [facility] 09-29-2000 haemophilus influenz ae type b vaccine, PRP-OMP conjugate [facility] 06-23-2000 diphtheria, tetanus toxoids and acellular pertussis vaccine [facility] 06-23-2000 haemophilus influenz ae type b vaccine, PRP-OMP conjugate [facility] 06-23-2000 poliovirus vaccine, inactivated [facility] 05-16-2000 diphtheria, tetanus toxoids and acellular pertussis vaccine [facility] 05-16-2000 haemophilus influenz ae type b vaccine, PRP-OMP conjugate [facility] 05-16-2000 poliovirus vaccine, inactivated [facility] 02-28-2000 hepatitis B vaccine, pediatric or pediatric/adolescent dosage Dante Hathaway [facility] ANDRE 1999 hepatitis B vaccine, pediatric or pediatric/adolescent dosage Dante Hathaway [place], [place] Payers Date Payer Category Payer Self-pay 2023 Private Health Insurance [id number] 2023 Unknown [id number] 2016 Unknown [employer] xxxxxx 2016-Present [phone] [id number] [place] [id number] xxxxxx [id number] 2007 Unknown [id number] Unknown [id number] 62 Unknown [id number] 62 Unknown [id number] 62 Unknown [id number] 62 Unknown [id number] 62 Unknown [id number] [id number] 62 Unknown [id number] [id number] 62 Unknown [id number] [id number] 62 Unknown [id number] [id number] 62 Unknown [id number] 2.16.840.1.340386.3.579.2.4 62 Unknown [id number] [id number] 62 Unknown [id number] [id number] 62 Unknown [id number] [id number] 62 Unknown [id number] [id number] 62 Social History Date Type Detail Facility Start: 02-15-2019 End: 02-16-2024 Tobacco smoking status NHIS Never smoker [place], [place] Start: 02-15-2019 End: 09-24-2024 Alcohol intake No [place], [place] Start: 2000 Sex Assigned At Not on file [place], [place] Start: 02-15-2022 End: 02-16-2024 Tobacco use and exposure Smokeless tobacco non-user [facility] Start: 09-06-2022 End: 10-11-2024 Alcohol intake Lifetime non-drinker (finding) [facility] Start: 02-15-2022 History SDOH Financial 4 [facility] Start: 02-15-2022 History SDOH Food Worry 1 [facility] Start: 02-15-2022 History SDOH Transport Med 2 [facility] Start: 10-07-2022 End: 09-24-2024 History of Social function [facility] How hard is it for y ou to pay for the very basics like food, housing, medical care, and heating Not very hard [facility] (I/We) worried wheth er (my/our) food would run out before (I/we) got money to buy more. Never true [facility] [employer] In the past 12 month s, has lack of transportation kept you from medical appointments or from getting medications? No [facility] Start: 03-18-2024 Education 15 [facility] Start: 02-16-2024 [facility] Start: 03-26-2022 End: 04-05-2022 Exposure to SARS-CoV-2 (event) Not sure [facility] Start: 2000 Sex Assigned At Female [facility] Goals Date Patient Goal Desired Activity /State [...] 08/15/2024 8:27 PM EDT Puja Perez, ROSMERY [facility] 08-15-2024 Are you blind, or do you have serious difficulty seeing, even when wearing glasses No 08/15/2024 8:27 PM Puja Serrano, ROSMERY No [facility] 08-15-2024 Do you have serious difficulty walking or climbing stairs No 08/15/2024 8:27 PM Puja Serrano, ROSMERY [facility] 08-15-2024 Do you have difficul ty dressing or bathing No 08/15/2024 8:27 PM Puja Serrano, ROSMERY No [facility] 08-15-2024 Because of a physica l, mental, or emotional condition, do you have difficulty doing errands alone such as visiting a physician's office or shopping No 08/15/2024 8:27 PM Puja Serrano, ROSMERY No [facility] Mental Status Date Assessment Result Facility 08-15-2024 Because of a physica l, mental, or emotional condition, do you have serious difficulty concentrating, remembering, or making decisions No 08/15/2024 8:27 PM EDT Puja Perez RN No [facility] Clinical Notes 04-24-2022 to 10-18-2024 Deb Richard APRN.CNM - 10/18/2024 10:59 AM EDTPrenatal Quick Notes - Deb Richard APRN.CNM - 10/18/2024 10:02 AM EDTPatient Gita Garcia MD - 10/11/2024 12:03 PM EDT Note Date & Type Note Facility 10-18-2024 Note HNO ID: [id number] Author: DEB RICHARD APRN.CNM Service: ? Author Type: Flat Screen Worker Type: Progress Notes Filed: 10/18/2024 11:00 Note [...] I and Reactive SIGNATURE: Deb Richard APRN.CNM [facility] 10-18-2024 History of Presen t illness [...] Deb Richard APRN.CNM documented in this encounter [facility] 10-18-2024 Progress note Formatting of t his [...] pp for BP check Deb Richard APRN.CNM [facility] 10-18-2024 Miscellaneous Notes Formattin g of this [...] Deb Richard APRN.CNM documented in this encounter [facility] 10-18-2024 Instructions Alyssa Donnelly MA - 10/18/2024 9:10 AM EDT SEQUENTIAL SCREENINGS The [facility] offers sequential screenings for women who are [...] It will require an appointment with our photo equipment technician. This is not an ultrasound performed [...] the above symptoms, contact our office at [phone] and ask to speak with a nurse. After hours, you can call doctors registry at [phone] OR call [facility] at [phone] and ask to have the doctor solderer electronic paged. If you consider this an emergency, dial 9-1-9 or go to your nearest emergency department. NEED HELP? Are you dealing with a violent or abusive relationship? Are you a victim of rape or sexual assult? Call [facility] ([place]) 24 hour Crisis Hotline: 699.153.2555 or 459-325-1584. MANUAL Your Guide to a Healthy manual is now on-line. Visit [email or web address] to download your free copy documented in this encounter [facility] 10-14-2024 Note Indication Evaluation of well-being Maternal [...] M.D. MATERNAL MEDICINE 10-11-2024 Note HNO ID: [id number] Author: GITA NATION MD Service: ? Author [...] None Interpretation: Reactive SIGNATURE: Gita Nation MD [facility] 10-11-2024 History of Presen t illness [...] Gita Nation MD documented in this encounter [facility] 10-11-2024 Progress note Formatting of t his note might be different from the original. RR- VB No. LOF No. CTXS No. Movement: present. Other c/o: No. Medication list reviewed. SENSITIVE EXAMINATION CONSENT: The sensitive examination was discussed with the Patient or Patient's Authorized Business Controller. As applicable, any other physician, advance practice provider, medical student, or other health professional student that will be observing or involved in the sensitive examination for educational or training purposes was discussed with the Patient or Authorized Business Controller. The Patient or Authorized Business Controller has agreed to proceed with the sensitive [...] affecting management of mother, antepartum, single gestation ([facility]) Orders: URINE OB DIP B/O PROTEIN / CREATININE RATIO; Future COMPLETE BLOOD COUNT; Future COMPREHENSIVE METABOLIC PANEL; Future declines tdap after discussion today ICCS risk calculator- 54% for c/s Gita Nation M.D. T [facility] 10-11-2024 Miscellaneous Notes Formattin g of this note might be different from the original. RR- VB No. LOF No. CTXS No. Movement: present. Other c/o: No. Medication list reviewed. SENSITIVE EXAMINATION CONSENT: The sensitive examination was discussed with the Patient or Patient's Authorized Business Controller. As applicable, any other physician, advance practice provider, medical student, or other health professional student that will be observing or involved in the sensitive examination for educational or training purposes was discussed with the Patient or Authorized Business Controller. The Patient or Authorized Business Controller has agreed to proceed with the sensitive [...] PANEL; Future Obesity during in third trimester ([facility]) Orders: URINE OB DIP B/O ROUTINE, GROUP B STREPTOCOCCUS BY PCR PROTEIN / CREATININE RATIO; Future COMPLETE BLOOD COUNT; Future COMPREHENSIVE METABOLIC PANEL; Future Single umbilical artery affecting management of mother, antepartum, single gestation ([facility]) Orders: URINE OB DIP B/O PROTEIN / CREATININE RATIO; Future COMPLETE BLOOD COUNT; Future COMPREHENSIVE METABOLIC PANEL; Future declines tdap after discussion today ICCS risk calculator- 54% for c/s Gita Nation M.D. documented in this encounter [facility] 10-11-2024 Instructions Jeanne Espinosa MA - 10/11/2024 10:36 AM EDT SEQUENTIAL SCREENINGS [facility] offers sequential screenings for women who are [...] It will require an appointment with our photo equipment technician. This is not an ultrasound performed [...] the above symptoms, contact our office at [phone] and ask to speak with a nurse. After hours, you can call doctors registry at [phone] OR call [facility] at [phone] and ask to have the doctor solderer electronic paged. If you consider this an emergency, dial 4--4 or go to your nearest emergency department. NEED HELP? Are you dealing with a violent or abusive relationship? Are you a victim of rape or sexual assult? Call [facility] ([place]) 24 hour Crisis Hotline: 339.467.5483 or 630-826-3396. MANUAL Your Guide to a Healthy manual is now on-line. Visit [email or web address] to download your free copy documented in this encounter [facility] 10-08-2024 Note Indication Evaluation of well-being Maternal [...] for severe range BP's on L&D thanks [facility] 10-07-2024 Miscellaneous Notes Formattin g of this [...] be there in 2.5 hours. 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 Stressed the importance and potential seriousness of an elevated BP. Voiced understanding. Will go to L&D. Called and notified L&D nurse. Niru Rodas RN documented in this encounter [facility] 10-07-2024 Telephone encount er Note 35w3d Called [...] be there in 2.5 hours. 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 Stressed the importance and potential seriousness of an elevated BP. Voiced understanding. Will go to L&D. Called and notified L&D nurse. Niru Rodas RN [facility] 10-04-2024 Note HNO ID: [id number] Author: TEHO BOYLE MD Service: ? Author Type: Physician Type: Progress Notes Filed: 10/04/2024 10:17 Note Text: NST SUMMARY PROVIDER ASSESSMENT AND INTERPRETATION Indications for NST: Obesity Baseline: 140 Variability: Moderate Accelerations: Present 15 X 15 Decelerations: None Interpretation: Category I SIGNATURE: Theo Boyle MD [facility] 10-04-2024 History of Presen t illness Narrative NST SUMMARY PROVIDER ASSESSMENT AND INTERPRETATION Indications for NST: Obesity Baseline: 140 Variability: Moderate Accelerations: Present 15 X 15 Decelerations: None Interpretation: Category I SIGNATURE: Theo Boyle MD documented in this encounter [facility] 10-04-2024 Instructions Sandra Robledo MA - 10/04/2024 9:21 AM EDT SEQUENTIAL SCREENINGS [facility] offers sequential screenings for women who are [...] It will require an appointment with our photo equipment technician. This is not an ultrasound performed [...] the above symptoms, contact our office at [phone] and ask to speak with a nurse. After hours, you can call doctors registry at [phone] OR call [facility] at [phone] and ask to have the doctor solderer electronic paged. If you consider this an emergency, dial 5-8-3 or go to your nearest emergency department. NEED HELP? Are you dealing with a violent or abusive relationship? Are you a victim of rape or sexual assult? Call [facility] ([facility] 24 hour Crisis Hotline: 551.879.3999 or 600-126-3058. MANUAL Your Guide to a Healthy manual is now on-line. Visit [email or web address] to download your free copy documented in this encounter [facility] 09-30-2024 Note HNO ID: [id number] Author: NIRU HARRINGTON MD Service: ? Author Type: Physician Type: Progress Notes Filed: 09/30/2024 13:42 Note Text: NST SUMMARY PROVIDER ASSESSMENT AND INTERPRETATION Indications for NST: Chronic HTN and Other: 2VC Baseline: 150 Variability: Moderate Accelerations: Present 15 X 15 Decelerations: None Interpretation: Reactive SIGNATURE: Niru Harrington MD [facility] 09-30-2024 History of Presen t illness Narrative NST SUMMARY PROVIDER ASSESSMENT AND INTERPRETATION Indications for NST: Chronic HTN and Other: 2VC Baseline: 150 Variability: Moderate Accelerations: Present 15 X 15 Decelerations: None Interpretation: Reactive SIGNATURE: Niru Harrington MD documented in this encounter [facility] 09-30-2024 Progress note Formatting of t his [...] Supervision of high risk in third trimester ([facility]) - ICD9: V23.9, ICD10: O09.93 (primary diagnosis) - URINE OB DIP B/O 2. Chronic hypertension complicating or reason for care during childbirth ([facility]) - ICD9: 642.01, ICD10: O10.92 Improved - URINE OB DIP B/O 3. Obesity during in third trimester ([facility]) - ICD9: 649.13, ICD10: O99.213 NSTS weekly Growth q 4 - URINE OB DIP B/O 4. Single umbilical artery affecting management of mother, antepartum, single gestation ([facility]) - ICD9: V23.89, ICD10: O09.899 - URINE OB DIP B/O 5. 34 weeks gestation of ([facility]) - ICD9: V22.2, ICD10: Z3A.34 precautions - URINE OB DIP B/O Niru Harrington MD [facility] 09-30-2024 Miscellaneous Notes Formattin g of this [...] Supervision of high risk in third trimester ([facility]) - ICD9: V23.9, ICD10: O09.93 (primary diagnosis) - URINE OB DIP B/O 2. Chronic hypertension complicating or reason for care during childbirth ([facility]) - ICD9: 642.01, ICD10: O10.92 Improved - URINE OB DIP B/O 3. Obesity during in third trimester ([facility]) - ICD9: 649.13, ICD10: O99.213 NSTS weekly Growth q 4 - URINE OB DIP B/O 4. Single umbilical artery affecting management of mother, antepartum, single gestation ([facility]) - ICD9: V23.89, ICD10: O09.899 - URINE OB DIP B/O 5. 34 weeks gestation of ([facility]) - ICD9: V22.2, ICD10: Z3A.34 precautions - URINE OB DIP B/O Niru Harrington MD documented in this encounter [facility] 09-30-2024 Instructions Brandie Coburn MA - 09/30/2024 10:04 AM EDT SEQUENTIAL SCREENINGS [facility] offers sequential screenings for women who are [...] It will require an appointment with our photo equipment technician. This is not an ultrasound performed [...] the above symptoms, contact our office at [phone] and ask to speak with a nurse. After hours, you can call doctors registry at [phone] OR call [facility] at [phone] and ask to have the doctor solderer electronic paged. If you consider this an emergency, dial 9-1-7 or go to your nearest emergency department. NEED HELP? Are you dealing with a violent or abusive relationship? Are you a victim of rape or sexual assult? Call [facility] ([place]) 24 hour Crisis Hotline: 113.350.5810 or 262-136-7153. MANUAL Your Guide to a Healthy manual is now on-line. Visit [email or web address] to download your free copy documented in this encounter [facility] 09-28-2024 Note HNO ID: [id number] Author: RACHEL MOSQUEDA APRN.CNM Service: ? Author Type: Flat Screen Worker Type: Progress Notes Filed: 09/28/2024 12:47 Note Text: NST SUMMARY PROVIDER ASSESSMENT AND INTERPRETATION Alon Schmitt is a 23 year old female, , who is at 34w1d with an LUIS of 11/08/2024, by Last Menstrual Period dating method. Indications for NST: Chronic HTN Baseline: 145 Variability: Moderate Accelerations: Present 15 X 15 Decelerations: None Contractions: TOCO: None Interpretation: Reactive SIGNATURE: Rachel Mosqueda APRN.CNM [facility] 09-28-2024 History of Presen t illness [...] Rachel Mosqueda APRN.CNM documented in this encounter [facility] 09-28-2024 Progress note Formatting of t his note might be different from the original. EDELMIRA-NST only, reactive. Rachel Mosqueda APRN.CNM [facility] 09-28-2024 Miscellaneous Notes Formattin g of this note might be different from the original. EDELMIRA-NST only, reactive. Rachel Mosqueda APRN.CNM documented in this encounter [facility] 09-24-2024 Jamari Syed MA - 09/24/2024 2:36 PM EDT SEQUENTIAL SCREENINGS [facility] offers sequential screenings for women who are [...] It will require an appointment with our photo equipment technician. This is not an ultrasound performed [...] the above symptoms, contact our office at [phone] and ask to speak with a nurse. After hours, you can call doctors registry at [phone] OR call [facility] at [phone] and ask to have the doctor solderer electronic paged. If you consider this an emergency, dial -9 or go to your nearest emergency department. NEED HELP? Are you dealing with a violent or abusive relationship? Are you a victim of rape or sexual assult? Call [facility] ([place]) 24 hour Crisis Hotline: 472.526.8167 or 642-578-3346. MANUAL Your Guide to a Healthy manual is now on-line. Visit [email or web address] to download your free copy documented in this encounter [facility] 09-21-2024 Note HNO ID: [id number] Author: SANDRA ROBLEDO MA Service: ? Author Type: Montessori Teacher Type: Progress Notes Filed: 09/21/2024 11:58 Note Text: Demetrius TODD 127 6126/82 5127 3 2 1135/80 [facility] 09-21-2024 History of Presen t illness Narrative Demetrius TODD [id number] 6126/82 5127/84 4119 3116 2137 1135/80 documented in this encounter [facility] 09-21-2024 Progress note Formatting of t his [...] Supervision of high risk in third trimester ([facility]) - ICD9: V23.9, ICD10: O09.93 (primary diagnosis) - URINE OB DIP B/O 2. Chronic hypertension complicating or reason for care during childbirth ([facility]) - ICD9: 642.01, ICD10: O10.92 - URINE OB DIP B/O - NON-STRESS TEST 3. Obesity during in third trimester ([facility]) - ICD9: 649.13, ICD10: O99.213 Weekly NSTs - URINE OB DIP B/O 4. Single umbilical artery affecting management of mother, antepartum, single gestation ([facility]) - ICD9: V23.89, ICD10: O09.899 EFW 69% - URINE OB DIP B/O 5. 33 weeks gestation of ([facility]) - ICD9: V22.2, ICD10: Z3A.33 - URINE OB DIP B/O Niru Harrington MD [facility] 09-21-2024 Miscellaneous Notes Formattin g of this [...] Supervision of high risk in third trimester ([facility]) - ICD9: V23.9, ICD10: O09.93 (primary diagnosis) - URINE OB DIP B/O 2. Chronic hypertension complicating or reason for care during childbirth ([facility]) - ICD9: 642.01, ICD10: O10.92 - URINE OB DIP B/O - NON-STRESS TEST 3. Obesity during in third trimester ([facility]) - ICD9: 649.13, ICD10: O99.213 Weekly NSTs - URINE OB DIP B/O 4. Single umbilical artery affecting management of mother, antepartum, single gestation ([facility]) - ICD9: V23.89, ICD10: O09.899 EFW 69% - URINE OB DIP B/O 5. 33 weeks gestation of ([facility]) - ICD9: V22.2, ICD10: Z3A.33 - URINE OB DIP B/O Niru Harrington MD documented in this encounter [facility] 09-21-2024 Note Indication Evaluation of growth, Evaluation [...] 09/21/2024 8:41 AM EDT SEQUENTIAL SCREENINGS The [facility] offers sequential screenings for women who are [...] It will require an appointment with our photo equipment technician. This is not an ultrasound performed [...] the above symptoms, contact our office at [phone] and ask to speak with a nurse. After hours, you can call doctors registry at [phone] OR call [facility] at [phone] and ask to have the doctor solderer electronic paged. If you consider this an emergency, dial 9--6 or go to your nearest emergency department. NEED HELP? Are you dealing with a violent or abusive relationship? Are you a victim of rape or sexual assult? Call [facility] ([place]) 24 hour Crisis Hotline: 959.416.6118 or 344-080-3600. MANUAL Your Guide to a Healthy manual is now on-line. Visit [email or web address] to download your free copy documented in this encounter [facility] 09-14-2024 Note HNO ID: [id number] Author: JESSI RAMIREZ MD Service: ? Author Type: Physician Type: Progress Notes Filed: 09/14/2024 15:59 Note Text: DEMETRIUS BP A- 129/83 p-125 6- 136/83 p-127 5-131/82 p-118 4-129/83 p-127 3-125/85 p-127 2-127/82 p- 127 1-126/81 p- 127 [facility] 09-13-2024 Telephone encount er Note Patient [...] in 24-48 hours in the office thanks [facility] 09-13-2024 Miscellaneous Notes Formattin g of this [...] the office thanks documented in this encounter [facility] 09-13-2024 Evaluation note Diagnosis Onset Date Resolution 32 weeks gestation of acute September 13, 2024 5 :58pm Elevated blood pressure affecting in third trimester, antepartum acute September 13, 2024 5:58pm [facility] Work Phone: 1(542) 923-959105-16-2025 Progress note* Quick Notes - Niru Harrington [...] Supervision of high risk in third trimester ([facility]) - ICD9: V23.9, ICD10: O09.93 (primary diagnosis) PTL precautions 2. Obesity during in third trimester ([facility]) - ICD9: 649.13, ICD10: O99.213 Nsts weekly at 32 Growth q 4 3. Single umbilical artery affecting management of mother, antepartum, single gestation ([facility]) - ICD9: V23.89, ICD10: O09.899 Nsts weekly at 32 Growth q 4 4. 31 weeks gestation of ([facility]) - ICD9: V22.2, ICD10: Z3A.31 Niru Harrington MD [facility]05-16-2025 Miscellaneous Notes* Quick Notes - Niru Harrington [...] Supervision of high risk in third trimester ([facility]) - ICD9: V23.9, ICD10: O09.93 (primary diagnosis) PTL precautions 2. Obesity during in third trimester ([facility]) - ICD9: 649.13, ICD10: O99.213 Nsts weekly at 32 Growth q 4 3. Single umbilical artery affecting management of mother, antepartum, single gestation ([facility]) - ICD9: V23.89, ICD10: O09.899 Nsts weekly at 32 Growth q 4 4. 31 weeks gestation of ([facility]) - ICD9: V22.2, ICD10: Z3A.31 Niru Harrington MD documented in this encounterGreen Cross Hospital05-16-[facility]25 Instructions* Patient Instructions* Brandie Coburn MA - 09/10/2024 1:58 PM EDT SEQUENTIAL SCREENINGS The [facility] offers sequential screenings for women who are [...] testing. It will require an appointment withour photo equipment technician. This is not an ultrasound performed [...] the above symptoms, contact our office at [phone] and ask to speak with anurse. After hours, you can call doctors registry at [phone] OR call [facility] at [phone] ask to have the doctor solderer electronic paged. If you consider this an emergency, dial 91 or go to your nearest emergency department. NEED HELP? Are you dealing with a violent or abusive relationship? Are you a victim of rape or sexual assult? Call [facility] ([place]) 24 hour Crisis Hotline: 273.947.2548 or 910-521-8339. MANUAL Your Guide to a Healthy manual is now on-line. Visit [facility]/HealthyPregnancyGuide to download your free copy documented in this encounterGreen Cross Hospital05-02-2025 Note Indication Evaluation of growth Maternal obesity, [...] 5 oz EFW by: Hadlock (HC-AC-FL) Extended Trade Union Secretary 4.6 mm Extremities / Bony Struc FL [...] RDMS, RVT Read By: Concepcion Ricci M.D.MATERNAL [id number] Progress note* Quick Notes - Niru Harrington [...] ASSESSMENT/PLAN: 1. Obesity during in third trimester ([facility]) - ICD9: 649.13, ICD10: O99.213 (primary diagnosis) NSTS weekly at 32 Growth q 4 - URINE OB DIP B/O 2. Single umbilical artery affecting management of mother, antepartum, single gestation ([facility]) - ICD9: V23.89, ICD10: O09.899 Growth q 4 - URINE OB DIP B/O - OBSTETRIC ULTRASOUND WHI 3. Screening for diabetes mellitus - ICD9: V77.1, ICD10: Z13.1 - URINE OB DIP B/O 4. Supervision of high risk in third trimester ([facility]) - ICD9: V23.9, ICD10: O09.93 - URINE OB DIP B/O 5. 29 weeks gestation of ([facility]) - ICD9: V22.2, ICD10: Z3A.29 - URINE OB DIP B/O Niru Harrington MD [facility]05-02-2025 Miscellaneous Notes* Quick Notes - Niru Harrington [...] ASSESSMENT/PLAN: 1. Obesity during in third trimester ([facility]) - ICD9: 649.13, ICD10: O99.213 (primary diagnosis) NSTS weekly at 32 Growth q 4 - URINE OB DIP B/O 2. Single umbilical artery affecting management of mother, antepartum, single gestation ([facility]) - ICD9: V23.89, ICD10: O09.899 Growth q 4 - URINE OB DIP B/O - OBSTETRIC ULTRASOUND WHI 3. Screening for diabetes mellitus - ICD9: V77.1, ICD10: Z13.1 - URINE OB DIP B/O 4. Supervision of high risk in third trimester ([facility]) - ICD9: V23.9, ICD10: O09.93 - URINE OB DIP B/O 5. 29 weeks gestation of ([facility]) - ICD9: V22.2, ICD10: Z3A.29 - URINE OB DIP B/O Niru Harrington MD documented in this encounterGreen Cross Hospital05-02-2025 Instructions* Patient Instructions* Sandra Robledo MA - 08/27/2024 9:19 AM EDT SEQUENTIAL SCREENINGS [facility] offers sequential screenings for women who are [...] testing. It will require an appointment withour photo equipment technician. This is not an ultrasound performed [...] the above symptoms, contact our office at [phone] and ask to speak with anurse. After hours, you can call doctors registry at [phone] OR call [facility] at [phone] ask to have the doctor solderer electronic paged. If you consider this an emergency, dial 6-4-0 or go to your nearest emergency department. NEED HELP? Are you dealing with a violent or abusive relationship? Are you a victim of rape or sexual assult? Call [facility] ([place]) 24 hour Crisis Hotline: 103.221.9455 or 683-316-3461. MANUAL Your Guide to a Healthy manual is now on-line. Visit [email or web address]/HealthyPregnancyGuide to download your free copy documented in this encounterGreen Cross Hospital05-01-2025 Telephone encounter Note * Telephone Encounter - Belen Crenshaw RN - 08/26/2024 4:45 PM EDT Pt scheduled 08/27/24 for Growth US at 8:30am and OB appt at 9am. Please file order and will link to appt. Belen Crenshaw RN [facility]05-01-2025 Miscellaneous Notes* Telephone Encounter - Belen Crenshaw RN - 08/26/2024 4:45 PM EDT Pt scheduled 08/27/24 for Growth US at 8:30am and OB appt at 9am. Please file order and will link to appt. Belen Crenshaw RN documented in this encounterGreen Cross Hospital04-22-2025 Telephone encounter Note * Telephone Encounter - [...] Encouraged Mrs. Schmitt to reach me via [employer] or at my direct office line ([phone]) if she has any questions or concerns in the future. Fabienne Del Cid MS, [facility] [place] Licensed, Certified Genetic Counselor [facility] Work Phone: 1(463) 273-143104-22-2025 Miscellaneous Notes* Telephone Encounter - Fabienne Del [...] Encouraged Mrs. Schmitt to reach me via [employer] or at my direct office line ([phone]) if she has any questions or concerns in the future. Fabienne Del Cid MS, [facility] [place] Licensed, Certified Genetic Counselor documented in this encounterGreen Cross Hospital04-22-2025 Instructions* Patient Instructions* Rachel Whatley MD - [...] that may continue to pursue delivery at [place] with their planin coordination with their OB - Recommend follow-up within 1 month after for assessment in clinic and further surgical counseling. - We briefly reviewed timing of surgery, possible need for staged surgeries, and occasional need for testosterone injections - I advised patient that my colleague, Dr. Diandra Crenshaw, sees patients in [place] which may be more convenient for them. Recommended resources: -[email or web address]/urology-a-z/h/hypospadias - [email or web address].[email or web address]/conditions-diseases/hypospadias Pediatric Urology Scheduling: Office/Clinical concerns: Rachel Whatley MD, MSc Excel Analyst Pediatric Urology documented in this encounterGreen Cross Hospital04-22-2025 History of Present illness Narrative* Rachel Whatley MD - 08/17/2024 8:00 AM EDT Virtual New Patient Visit - Pediatric Urology Alon Schmitt 2000 [id number] CC: consultation Patient is accompanied today by on telephone This is a virtual visit using [employer] Video Visit. It required patient- provider interaction [...] fluid levels: Normal. Plans to deliver at [place]. Allergies: ALLERGIES No Known Allergies Medications: Current [...] 81 mg cap Take by mouth. VIT 6-CRZD-SITOX-DHA ORAL Take by mouth. No current facility-administered [...] I virtually examined the patient with a guardian/department mgr present. Constitutional: Well-developed, well-nourished child in no [...] that may continue to pursue delivery at [place] with their planin coordination with their OB - Recommend follow-up within 1 month after for assessment in clinic and further surgical counseling. - We briefly reviewed timing of surgery, possible need for staged surgeries, and occasional need for testosterone injections - I advised patient that my colleague, Dr. Diandra Crenshaw, sees patients in [place] which may be more convenient for them. Recommended resources: -www.[facility].org/urology-a-z/h/hypospadias - [email or web address].[email or web address]/conditions-diseases/hypospadias Pediatric Urology Scheduling: Office/Clinical concerns: Rachel Whatley MD, MSc Excel Analyst Pediatric Urology Recording using Room software for draft documentation of the visit was discussed with the patient/authorized patient relations representative; all questions welcomed and answered. Patient/authorized patient relations representative agreed to proceed documented in this encounterGreen Cross Hospital04-22-2025 NoteHNO ID: [id number] Author: RACHEL WHATLEY MD Service: ? Author Type: Physician Type: Progress Notes Filed: 08/17/2024 09:23 Note Text: Virtual New Patient Visit - Pediatric Urology Alon Schmitt 2000 [id number] CC: consultation Patient is accompanied today by on telephone This is a virtual visit using [employer] Video Visit. It required patient-provider interaction [...] fluid levels: Normal. Plans to deliver at [place]. Allergies: ALLERGIES No Known Allergies Medications: Current [...] 81 mg cap Take by mouth. VIT 8-ZFUC-IHSPN-DHA ORAL Take by mouth. No current facility-administered [...] I virtually examined the patient with a guardian/department mgr present. Constitutional: Well-developed, well-nourished child in no [...] that may continue to pursue delivery at [place] with their plan in coordination with their OB - Recommend follow-up within 1 month after for assessment in clinic and further surgical counseling. - We briefly reviewed timing of surgery, possible need for staged surgeries, and occasi (more content not included)...[facility]04-20-2025 Note HNO ID: [id number] Author: REBA MOREIRA DO Service: Obstetrics Author [...] Results: UA DIP LABSTIX, URINE (POC) Order: [id number] Status: Final result Test Result Released: No [...] 8:00 AM RACHEL WHATLEY Josue Galindo Bld [phone] 08/27/2024 8:30 AM WHI TECH 1 FUNDRAISING ASSISTANT MFM WSTR MOB [place] [phone] 08/27/2024 8:30 AM FUNDRAISING ASSISTANT MFM WSTR MOB [place] [phone] 08/27/2024 9:00 AM NIRU HARRINGTON [place] [phone] Precautions: Pain precautions, labor precautions New or adjusted home medications: Tylenol every 6 hours as needed for pain Other recommendations/instructions: Belly band Reba Moreira, [facility]04-20-2025 NoteHNO ID: [id number] Author: DONNA COURTNEY MD Service: Nursing Author [...] August 15, 2024 TIME: 9:30 [facility]04-20-2025 NoteHNO ID: [id number] Author: DONNA COURTNEY MD Service: Obstetrics Author [...] 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 Pain resolved after arriving here. Discussed likely [...] was discussed with the patient or authorized patient relations representative. The patient or authorized patient relations representative has agreed to proceed with the [...] evaluate for UTI ve (more content not included)...[facility]04-15-2025 NoteHNO ID: [id number] Author: LUZ ELENA LAGUNA MD Service: ? Author Type: Physician Type: Progress Notes Filed: 08/22/2024 09:48 Note Text: [facility] OUTPATIENT VISIT August 10, 2024 Medicine Consult REFERRING PROVIDER: Wiswell Darryl, MD Recommendations from today's consultation will be conveyed through the electronic medical record. History of Present Illness: 23 year old at 27w1d with Estimated Date of Delivery: 11/08/24 presenting for consultation with Maternal- Medicine at the [facility] in the setting of atypical genitalia and [...] 81 mg cap Take by mouth. VIT 2-QEUY-YJPJJ-DHA ORAL Take by mouth. No current facility-administered [...] for consultation with Maternal- Medicine at the [facility] in the setting of atypical genitalia and [...] births, typically presenting wit (more content not included)...[facility]04-10-2025 Telephone encounter Note* Telephone Encounter - Belen Crenshaw RN - 08/05/2024 4:13 PM EDT Distance Health: Appt with RACHEL Amin on 08/03/24 added to record. Belen Crenshaw RN [facility]04-10-2025 Miscellaneous Notes* Telephone Encounter - Belen Crenshaw RN - 08/05/2024 4:13 PM EDT Distance Health: Appt with FabienneRACHEL Matos on 08/03/24 added to record. Belen Crenshaw RN documented in this encounterGreen Cross Hospital04-08-2025 Progress note* Quick Notes - Rachel Mosqueda [...] RTO in 1 weeks Rachel Mosqueda APRN.CNM [facility]04-08-2025 Miscellaneous Notes* Quick Notes - Rachel Mosqueda [...] weeks Rachel Mosqueda APRN.CNM documented in this encounterGreen Cross Hospital04-08-2025 Instructions* Patient Instructions* Rachel Mosqueda APRN.CNM - [...] the above symptoms, contact our office at [phone] and ask to speak with anurse. After hours, you can call doctors registry at [phone] OR call [facility] at [phone] ask to have the doctor solderer electronic paged. If you consider this an emergency, dial 9--4 or go to your nearest emergency department. NEED HELP? Are you dealing with a violent or abusive relationship? Are you a victim of rape or sexual assult? Call [facility] ([place]) 24 hour Crisis Hotline: 830.276.6899 or 097-568-6569. MANUAL Your Guide to a Healthy manual is now on-line. Visit [facility]/HealthyPregnancyGuide to download your free copy documented in this encounterGreen Cross Hospital04-08-2025 History of Present illness Narrative* Fabienne Del Cid LGC - 08/03/2024 9:00 AM EDT REPRODUCTIVE GENETIC COUNSELING INITIAL VISIT Alon Schmitt : 2000 Above identifiers confirmed by Fabienne Del Cid MS, [facility] Consultation requested by: Dr. Concepcion Ricci Date of clinic visit: August 03, 2024 Warehouse Director offered/present: No - Latvian per EMR Alon Schmitt is a 23 year old female referred by Dr. 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 She was accompanied to the visit today by her mother. Ms. Schmitt is seen via a virtual Distance Health visit today via [employer] platform per patient choice. The visit is conducted synchronously in real-time. The patient and her mother are in attendance. I have communicated my name and active licensure. The patient's identity and physical location wereverified at the time of this visit. Either the patient or their legal patient relations representative has been informed of the risks [...] 02/01/2025 LUIS: 11/08/2024 Plans to deliver at [place], but is open to [place] [facility] [place] as needed history: 1. 10/2023, 7w0d SAB [...] Gestational Age: 12w3d, Result: negative). - NIPT (ErmhekrE00): - Screen negative for Trisomy 21, Trisomy [...] Next growth scan scheduled for 08/10/2024 at [facility] CVS: No Amniocentesis: No complications: - [...] No - Other: No - Patient's ethnicity: Haitian/Khmer - Partner's ethnicity: N. - Patient and/or partner did not report -Gambian, , Mediterranean, Ashkenazi Roman Catholic and/or Lao-[place]/Cajun ancestries unless noted above. - Patient and [...] (Donita ortega et al. 2014. PubMed ID: [id number]). They can be inherited in an autosomal [...] concurrent standard 14 condition carrier screening through [facility]. The orders have been placed by myself [...] to contact me with any questions/concerns/etc via [employer] or my provided phone line ([phone]). Thank you for referring Mrs. Schmitt. Please do not hesitate to call if you have questions/concerns. The patient was seen for a total of 52 minutes, greater than 50% of which was spent cljo-nz-xnch counseling. This plan is being carried out under the oversight of Dr. Erika Feliciano. This note will also be sent to the referring provider via the electronic medical record. Fabienne Del Cid MS, [facility] [place] Licensed, Certified Genetic Counselor [facility] CC: Dr. Concepcion Adkins OB Dr. Erika Feliciano (onion farmer) documented in this encounterGreen Cross Hospital04-08-2025 NoteHNO ID: [id number] Author: FABIENNE DEL CID LGC Service: ? Author Type: Genetic Counselor Type: Progress Notes Filed: 08/23/2024 13:28 Note Text: REPRODUCTIVE GENETIC COUNSELING INITIAL VISIT Alon Schmitt : 2000 Above identifiers confirmed by Fabienne Del Cid MS, [facility] Consultation requested by: Dr. Concepcion Ricci Date of clinic visit: August 03, 2024 Warehouse Director offered/present: No - Latvian per EMR Alon Schmitt is a 23 year old female referred by Dr. 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 She was accompanied to the visit today by her mother. Ms. Schmitt is seen via a virtual Distance Health visit today via [employer] platform per patient choice. The visit is conducted synchronously in real-time. The patient and her mother are in attendance. I have communicated my name and active licensure. The patient's identity and physical location were verified at the time of this visit. Either the patient or their legal patient relations representative has been informed of the risks [...] 02/01/2025 LUIS: 11/08/2024 Plans to deliver at [place], but is open to delivery at [facility] as needed history: 1. 10/2023, 7w0d [...] Gestational Age: 12w3d, Result: negative). - NIPT (GfovliaS56): - Screen negative for Trisomy 21, Trisomy [...] Next growth scan scheduled for 08/10/2024 at [facility] CVS: No Amniocentesis: No complications: - [...] He lives independently (more content not included)... [facility]04-04-2025 Telephone encounter Note* Telephone Encounter - Belen Crenshaw RN - 07/30/2024 2:34 PM EDT Pt notified that NSTs will begin at 32 weeks per MFM report on 06/24/24 & US will be completed q4 weeks per MFM report on 07/27/24 d/t single umbilical artery. Pt denies additional questions/concerns at this time. Pt has upcoming appt in office on 08/03/24. Belen Crenshaw RN [place] [address]-04-2025 Miscellaneous Notes* Telephone Encounter - Belen Crenshaw [...] OB appt following. Does Pt need NSTs v0mfjkq? Please advise. Belen Crenshaw RN documented in this encounterGreen Cross Hospital04-04-2025 Telephone encounter Note * Telephone Encounter - Deb Richard APRN.CNM - 07/30/2024 1:50 PM EDT Patient needs growth US q 4 weeks starting at 32 weeks gestation for BMI. She will need weekly NST's at that time as well. The labs have been reviewed and are within normal ranges during . Deb Richard APRN.CNM [facility]04-04-2025 Telephone encounter Note* Telephone Encounter - [...] OB appt following. Does Pt need NSTs h3fsqwn? Please advise. Belen Crenshaw RN [facility]04-03-2025 Telephone encounter Note* Telephone Encounter - Nemo Thompson RN - 07/29/2024 10:42 AM EDT Call to Alon at the request of Dr. Ricci to introduce myself as manager managed care and the Care Center. I let Alon [...] penis. We discussed having her come to [facility] for follow up Ultrasound and [...] best of my ability. Nemo Thompson RN [facility]04-03-2025 Miscellaneous Notes* Telephone Encounter - Nemo Thompson RN - 07/29/2024 10:42 AM EDT Call to Alon at the request of Dr. Ricci to introduce myself as manager managed care and the Care Center. I let Alon [...] penis. We discussed having her come to [facility] for follow up Ultrasound and [...] ability. Nemo Thompson RN documented in this encounterGreen Cross Hospital04-01-2025 Note Indication Follow-up evaluation to complete anatomic [...] 10 oz EFW by: Hadlock (HC-AC-FL) Extended Trade Union Secretary 5.0 mm Extremities / Bony Struc FL / HC 0.19 Other Structures FHR 151 bpm Anatomy Lateral ventricles: normal Cavum septi pellucidi: normal Cerebellum: normal Cisterna magna: normal 4-chamber view: normal RVOT view: normal LVOT view: normal 3-vessel view: normal 9-wvvldj-yhgsuhq view: normal Heart / Thorax Situs: situs [...] By: Nicole Chiang RDMS, RVT Read By: Concepcoin Ricci M.D.MATERNAL [id number] Miscellaneous Notes* Addendum Note - Sandra Robledo [...] ordered. Theo Boyle MD documented in this encounterGreen Cross Hospital04-01-2025 Note* Addendum Note - Sandar Robledo MA - 07/27/2024 10:39 AM EDTAddended by: SANDRA ROBLEDO on: 07/27/2024 10:39 AM Modules accepted: Orders [facility]04-01-2025 Progress note* Quick Notes - Theo Boyle [...] for marginal bp ordered. Theo Boyle MD [facility] Work Phone: 1([phone]) 713-961704-01-2025 Instructions* Patient Instructions* Sandra Robledo MA - 07/27/2024 8:52 AM EDT SEQUENTIAL SCREENINGS The [facility] offers sequential screenings for women who are [...] testing. It will require an appointment withour photo equipment technician. This is not an ultrasound performed [...] the above symptoms, contact our office at [phone] and ask to speak with anurse. After hours, you can call doctors registry at [phone] OR call [facility] at [phone] ask to have the doctor solderer electronic paged. If you consider this an emergency, dial 12-27- or go to your nearest emergency department. NEED HELP? Are you dealing with a violent or abusive relationship? Are you a victim of rape or sexual assult? Call [facility] ([place]) 24 hour Crisis Hotline: 125.143.3559 or 283-976-9150. MANUAL Your Guide to a Healthy manual is now on-line. Visit [email or web address]/HealthyPregnancyGuide to download your free copy documented in this encounterGreen Cross Hospital03-11-2025 NoteHNO ID: [id number] Author: MELI ANNE MD Service: ? Author Type: Physician Type: Progress Notes Filed: 07/06/2024 10:09 Note Text: NAME: Alon Schmitt [facility] Number.: [id number] Date of : 2000 Date of Visit: July 06, 2024 Referring Provider: Niru Harrington MD Dear Dr. Harrington, Consultation requested for an opinion regarding Alon Schmitt. My final recommendations will be communicated back to the requesting physician by way of shared Medical record. Ms. Alon Schmtit was seen for echocardiogram and pediatric cardiology [...] which included preparing to see the patient, cbiy-ys-xosu patient care, completing clinical documentation, obtaining and/or reviewing separately obtained history, counseling and educating the patient/family/caregiver, communicating with other HCPs (not separately reported), independently interpreting results (not separately reported), and communicating results to the patient/family/caregiver. Sincerely, Meli Anne MD [facility] [address] History of Present illness Narrative* Meli Anne MD - 07/06/2024 9:18 AM EDT NAME: Alon Schmitt CLINIC Number.: [id number] Date of : 2000 Date of Visit: [...] which included preparing to see the patient, yopc-gm-fdrn patient care, completing clinical documentation, obtaining and/or reviewing separately obtained history, counseling and educating the patient/family/caregiver, communicating with other HCPs (not separately reported), independently interpreting results (not separately reported), and communicating results to the patient/family/caregiver. Sincerely, Meli Anne MD July 06, 2024 documented in this encounterGreen Cross Hospital02-27-2025 Progress note* Quick Notes - Niru Harrington [...] weekly starting 32 weeks Niru Harrington MD [facility]02-27-2025 Miscellaneous Notes* Quick Notes - Niru Harrington [...] weeks Niru Harrington MD documented in this encounterGreen Cross Hospital02-27-2025 Instructions* Patient Instructions* Jeanne Espinosa MA - 06/24/2024 9:04 AM EST SEQUENTIAL SCREENINGS [facility] offers sequential screenings for women who are [...] testing. It will require an appointment withour photo equipment technician. This is not an ultrasound performed [...] the above symptoms, contact our office at [phone] and ask to speak with anurse. After hours, you can call doctors registry at [phone] OR call [facility] at [phone] ask to have the doctor solderer electronic paged. If you consider this an emergency, dial 9-1-0 or go to your nearest emergency department. NEED HELP? Are you dealing with a violent or abusive relationship? Are you a victim of rape or sexual assult? Call [facility] ([place]) 24 hour Crisis Hotline: 620.440.2466 or 482-970-7227. MANUAL Your Guide to a Healthy manual is now on-line. Visit [email or web address] to download your free copy documented in this encounterGreen Cross Hospital01-27-2025 Progress note* Quick Notes - Faisal Collins APRN.TILT TRAY DRIVER - 05/24/2024 8:07 AM EST EH - [...] or sooner as needed. Faisal Collins APRN.HARVINDER [facility]01-27-2025 Miscellaneous Notes* Quick Notes - Faisal Collins [...] needed. Faisal Collins APRN.HARVINDER documented in this encounterGreen Cross Hospital01-27-2025 Instructions* Patient Instructions* Alyssa Donnelly MA - 05/24/2024 8:04 AM EST SEQUENTIAL SCREENINGS [facility] offers sequential screenings for women who are [...] testing. It will require an appointment withour photo equipment technician. This is not an ultrasound performed [...] the above symptoms, contact our office at [phone] and ask to speak with anurse. After hours, you can call doctors registry at [phone] OR call [facility] at [phone] ask to have the doctor solderer electronic paged. If you consider this an emergency, dial 9--1 or go to your nearest emergency department. NEED HELP? Are you dealing with a violent or abusive relationship? Are you a victim of rape or sexual assult? Call [facility] ([place]) 24 hour Crisis Hotline: 248.692.2363 or 143-660-5772. MANUAL Your Guide to a Healthy manual is now on-line. Visit [email or web address] to download your free copy documented in this encounterGreen Cross Hospital01-02-2025 Progress note* Quick Notes - Ankita Carrillo [...] and recommend frequent snacks Ankita Carrillo MD [facility]01-02-2025 Miscellaneous Notes* Quick Notes - Ankita Carrillo [...] snacks Ankita Carrillo MD documented in this encounterGreen Cross Hospital01-02-2025 Instructions* Patient Instructions* Ronni Oshea MA - 04/29/2024 9:24 AM EST SEQUENTIAL SCREENINGS [facility] offers sequential screenings for women who are [...] testing. It will require an appointment withour photo equipment technician. This is not an ultrasound performed [...] the above symptoms, contact our office at [phone] and ask to speak with anurse. After hours, you can call doctors registry at [phone] OR call [facility] at [phone] ask to have the doctor solderer electronic paged. If you consider this an emergency, dial 4-1-0 or go to your nearest emergency department. NEED HELP? Are you dealing with a violent or abusive relationship? Are you a victim of rape or sexual assult? Call [facility] ([place]) 24 hour Crisis Hotline: 567.989.7902 or 625-935-9185. MANUAL Your Guide to a Healthy manual is now on-line. Visit [email or web address] to download your free copy documented in this encounterGreen Cross Hospital12-05-2024 Telephone encounter Note * Telephone Encounter - Deb Richard APRN.CNM - 04/01/2024 12:46 PM EST She can come and leave a urine sample at the lab for testing. Deb Richard APRN.CNM [facility]12-05-2024 Miscellaneous Notes* Telephone Encounter - Deb Richard APRN.CNM - 04/01/2024 12:46 PM EST She can come and leave a urine sample at the lab for testing. Deb Richard APRN.CNM documented in this encounterGreen Cross Hospital11-25-2024 Progress note* Quick Notes - Deb Richard APRN.CNM - 03/22/2024 11:16 AM EST Patient seen for NOB. See progress note. Deb Richard APRN.CNM [facility]11-25-2024 Miscellaneous Notes* Quick Notes - Deb Richard APRN.CNM - 03/22/2024 11:16 AM EST Patient seen for NOB. See progress note. Deb Richard APRN.CNM documented in this encounterGreen Cross Hospital11-25-2024 Instructions* Patient Instructions* Deb Richard APRN.CNM - 03/22/2024 8:59 AM EST Vitamin B 6 - Take 2- 3 times a day add in Unisom 12-25 mg at night Please select the following link to access the [facility] Your Guide to a Healthy . [email or web address] documented in this encounterGreen Cross Hospital11-21-2024 NoteHNO ID: [id number] Author: DEB RICHARD APRN.CNM Service: ? Author Type: Flat Screen Worker Type: Progress Notes Filed: 03/22/2024 11:17 Note [...] lab workup by Dr. Erin Singh at [facility]. Mildly elevated protein S total but all other labs were negative *Patient seen in the emergency room on 03/15/2024 at [facility] for brown discharge and pelvic pain. Ultrasound was done that confirmed positive cardiac activity. Denies any bleeding since last night. Denies any pelvic pain for the last 2 days. *Patient considering genetic carrier screening and aneuploidy screening. Contact information for integrated genetics and [employer] labs given to patient to check on insurance coverage. INITIAL OB ASSESSMENT HPI: Alon Orta is a 23 year old White here to establish Obstetrical Care. Patient's last menstrual period was 02/02/2024 (exact date). from OB Dating Form. was planned Complaints: (!) Vaginal bleeding (Had bron spotting from -03/17-was seen in [facility] ER, treated with Amixicillin , pink eye, ear infection , Strep infection and pneumonia) OB History T0 L0 SAB1 IAB0 Ectopic0 Multiple0 Live Births0 Comment: Pt states she had a chemical # 1 - Date: 11/20/23, Sex: None, Weight: None, GA: 7w0d, Type: MISSED AB, Apgar1: None, Apgar5: None, Living: None, Comments: [facility] # 2 - Date: None, Sex: [...] a complicated by anomal (more content not included)...[facility]11-21-2024 History of Present illness Narrative* Deb Richard STORE GROUP MANAGER.WENDYM - 03/18/2024 8:53 AM EST *Pt has [...] lab workup by Dr. Erin Singh at [facility]. Mildly elevated protein S total but all otherlabs were negative *Patient seen in the emergency room on 03/15/2024 at [facility] for brown dischargeand pelvic pain. Ultrasound was done that confirmed positive cardiac activity. Denies any bleeding since last night. Denies any pelvic pain for the last 2 days. *Patient considering genetic carrier screening and aneuploidy screening. Contact information for integrated genetics and [employer] labs given to patient to check on insurance coverage. INITIAL OB ASSESSMENT HPI: Alon Orta is a 23 year old White here to establish Obstetrical Care. Patient's last menstrual period was 02/02/2024 (exact date). from OB Dating Form. 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 VIT 9-AYSK-OBJPR-DHA ORAL Take by mouth. progesterone micronized (PROMET[employer]UM) [...] discussed with the Patient or Patient's Authorized Business Controller. As applicable, any other physician, advance practice provider, medical student, or other health professional student that will be observing or involved in the sensitive examination for educational or training purposes was discussed with the Patient or Authorized Business Controller. The Patient or Authorized Business Controller has agreed to proceed with the sensitive [...] Your guide to a health and the Technical Photographer. 2) Screening: Hemoglobin A1C: ordered Baby Aspirin: [...] prn. Deb Richard APRN.CNM documented in this encounterGreen Cross Hospital11-18-2024 Telephone encounter Note * Telephone Encounter - Nicole Morley RN - 03/15/2024 3:32 PM EST Patient notified and voiced understanding. Nicole Morley RN [facility]11-18-2024 Miscellaneous Notes* Telephone Encounter - Nicole Morley [...] PM EST Patient states she went to [facility] ER this morning with bleeding in early [...] 03/22/24. Kiara Car RN documented in this encounterGreen Cross Hospital11-18-2024 Telephone encounter Note * Telephone Encounter - Darryl Adkins MD - 03/15/2024 3:01 PM EST Ok to keep appointment for next week unless something changes. Monitor bleeding and call with worsening bleeding or pain [facility]11-18-2024 Telephone encounter Note* Telephone Encounter - Kiara Car RN - 03/15/2024 12:17 PM EST Patient states she went to [facility] ER this morning with bleeding in early [...] is scheduled for 03/22/24. Kiara Car RN [facility]11-13-2024 Telephone encounter Note* Telephone Encounter - Belen Crenshaw RN - 03/10/2024 12:14 PM EST Pt notified and states she would like to get one more and this will be her last one. NOB appt scheduled. Belen Crenshaw RN [facility]11-13-2024 Miscellaneous Notes* Telephone Encounter - Belen Crenshaw [...] 8:14 AM EST Patient calling asking provider solderer electronic to review her results as Dr. Adkins is not in the office until tomorrow. Patient had last HCG quant drawn yesterday and states that she is supposed to get another one drawn tomorrow. Patient had previously requested in a [employer] message to have quant levels drawn twice a week d/t her history of miscarriage. Patient denies any pain or cramping. She is scheduled for NOB on 03/22. hCG Quantitative, Blood (mIU/mL) Date Value 03/09/2024 2,342.0 03/05/2024 667.4 03/03/2024 263.8 03/01/2024 117.3 Nicole Morley RN documented in this encounterGreen Cross Hospital11-13-2024 Telephone encounter Note * Telephone Encounter - Niru Harrington MD - 03/10/2024 11:57 AM EST HCG is rising appropriately. She can continue with HCG's but there is no need. [facility] Work Phone: 1(926) 744-634111-13-2024 Telephone encounter Note* Telephone Encounter - Nicole Morley RN - 03/10/2024 8:14 AM EST Patient calling asking provider solderer electronic to review her results as Dr. Adkins is not in the office until tomorrow. Patient had last HCG quant drawn yesterday and states that she is supposed to get another one drawn tomorrow. Patient had previously requested in a [employer] message to have quant levels drawn twice a week d/t her history of miscarriage. Patient denies any pain or cramping. She is scheduled for NOB on 03/22. hCG Quantitative, Blood (mIU/mL) Date Value 03/09/2024 2,342.0 03/05/2024 667.4 03/03/2024 263.8 03/01/2024 117.3 Nicole Morley RN [facility]11-11-2024 Telephone encounter Note* Telephone Encounter - Darryl Adkins MD - 03/08/2024 2:51 PM EST filed [facility]11-11-2024 Miscellaneous Notes* Telephone Encounter - Darryl Adkins MD - 03/08/2024 2:51 PM EST filed * Telephone Encounter - Nicole Morley RN - 03/08/2024 1:54 PM EST Request received from pharmacy for change as original medication is on back order. Nicole Morley RN documented in this encounterGreen Cross Hospital11-11-2024 Telephone encounter Note * Telephone Encounter - Nicole Morley RN - 03/08/2024 1:54 PM EST Request received from pharmacy for change as original medication is on back order. Nicole Morley RN [facility]11-07-2024 Telephone encounter Note* Telephone Encounter - Belen Crenshaw RN - 03/04/2024 9:49 AM EST Pt notified to get drawn tomorrow. NOB appt scheduled. Transferred to [facility] to get lab appt scheduledfor tomorrow morning. Belne Crenshaw RN [facility]11-07-2024 Telephone encounter Note* Telephone Encounter - Belen Crenshaw RN - 03/04/2024 9:49 AM EST ----- Message from Darryl Adkins MD sent at 03/04/2024 9:24 AM EST ----- See pt my chart message from today. Will order serial HCG levels. To have next level drawn tomorrow. Notify pt she will not get results until Friday. Can schedule 7 week NOB for bedside US thanks [facility]11-07-2024 Miscellaneous Notes* Telephone Encounter - Belen Crenshaw [...] for bedside US thanks documented in this encounterGreen Cross Hospital11-07-2024 Telephone encounter Note * Telephone Encounter - Darryl Adkins MD - 03/04/2024 9:24 AM EST Serial hcg levels ordered [facility]11-07-2024 Miscellaneous Notes* Telephone Encounter - Darryl Adkins MD - 03/04/2024 9:24 AM EST Serial hcg levels ordered documented in this encounterGreen Cross Hospital10-31-2024 Telephone encounter Note * Telephone Encounter - Deb Richard APRN.CNM - 02/26/2024 10:11 AM EDT Order signed. Deb Richard APRN.CNM [facility] Work Phone: [phone]) 480-462910-31-2024 Miscellaneous Notes* Telephone Encounter - Deb Richard APRN.CNM - 02/26/2024 10:11 AM EDT Order signed. Deb Richard APRN.CNM * Telephone Encounter - Belen Crenshaw RN - 02/26/2024 9:42 AM EDT See Pt's [employer] message. HCG orders pended. Please file then will contact Pt to have drawn.Belen Crenshaw RN documented in this encounterGreen Cross Hospital10-31-2024 Telephone encounter Note * Telephone Encounter - Belen Crenshaw RN - 02/26/2024 9:42 AM EDT See Pt's [employer] message. HCG orders pended. Please file then will contact Pt to have drawn.Belen Crenshaw RN [facility]10-24-2024 Telephone encounter Note* Telephone Encounter - Darryl Adkins MD - 02/19/2024 3:21 PM EDT filed [facility]10-24-2024 Miscellaneous Notes* Telephone Encounter - Darryl Adkins MD - 02/19/2024 3:21 PM EDT filed * Telephone Encounter - iKara Car RN - 02/18/2024 1:06 PM EDT Pharmacy requesting different rx for aspirin. Pharmacy comment: Product Backordered/Unavailable Requested Prescriptions Pending Prescriptions Disp Refills VAZALORE 81 mg cap [Pharmacy Med Name: VAZALORE 81 MG CAPSULE] 30 capsule 1 Sig: TAKE 81 MG BY MOUTH ONCE DAILY. STARTING WITH POSITIVE TEST. Kiara Car RN documented in this encounterGreen Cross Hospital10-23-2024 Telephone encounter Note * Telephone Encounter - Kiara Car RN - 02/18/2024 1:06 PM EDT Pharmacy requesting different rx for aspirin. Pharmacy comment: Product Backordered/Unavailable Requested Prescriptions Pending Prescriptions Disp Refills VAZALORE 81 mg cap [Pharmacy Med Name: VAZALORE 81 MG CAPSULE] 30 capsule 1 Sig: TAKE 81 MG BY MOUTH ONCE DAILY. STARTING WITH POSITIVE TEST. Kiara Car RN [facility]10-21-2024 NoteHNO ID: [id number] Author: DARRYL ADKINS MD Service: ? Author Type: Physician Type: Progress Notes Filed: 02/16/2024 12:53 Note Text: Alon Schmitt is a 23 year old female who presents as a new patient for history of two miscarriages. HPI: Transfer from [place]. History of 2 miscarriages. With her first [...] OB History No obstetric history on file. 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 Patient reports having recent annual exam. Discussed [...] management Medical Decision Making Level: 4 - [facility] History of Present illness Narrative* Darryl Adkins MD - 02/16/2024 9:31 AM EDT Alon Schmitt is a 23 year old female who presents as a new patient for history of two miscarriages. HPI: Transfer from [place]. History of 2 miscarriages. With her first [...] OB History No obstetric history on file. 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 Patient reports having recent annual exam. Discussed [...] Level: 4 - Moderate documented in this encounterGreen Cross Hospital09-25-2024 History of Present illness Narrative* Erin Singh APRN - TILT TRAY DRIVER - 01/21/2024 1:20 PM EDT Images from [...] notify of results. - Follow up with Commutator Tester as directed. 2. Amenorrhea - Protein S, [...] notify of results. - Follow up with Commutator Tester as directed. 3. Morbid obesity with BMI [...] Has followed up with Dr. Niru Cruz (Commutator Tester) in [place] but feels like she is getting the run around and is not getting any answers. Will be following up with another Commutator Tester. Has been attempting to conceive since last [...] last name and . documented in this [facility]11-24-2023 History of Present illness Narrative* Nemo Mohr MA - 03/21/2023 9:40 AM EST Patient was verified by name and . * CHARISMA Thornton CNP - 03/21/2023 9:40 AM EST Images from the original note were not included. 03/21/2023 Alon Schmitt (: 2000) is a 22 y.o. female , Established patient, here for evaluation of the following chief complaint(s): ER Follow-up ([facility] ER visit 03/19/23, started amoxicillin) and Sore Throat ASSESSMENT/PLAN: 1. Bilateral acute serous otitis media, recurrence not specified - amoxicillin-clavulanate (Augmentin) 875-125 MG tablet; Take 1 tablet by mouth 2 times daily for 10 days., Starting Fri03/21/2023, Until Fri03/31/2023, Normal - fpvkgarf-rzmpxdnor-wcuqsojzswanvh (Cortisporin) otic solution; Administer 3 drops into [...] CNP 03/21/2023 10:03 AM documented in this [facility]11-24-2023 Telephone encounter Note* Telephone Encounter - Joann Chicas RN - 03/21/2023 8:01 AM EST S: Patient's spoke with [facility] nurse regarding sore throat, swollen tonsils. [...] caller) but not severe Protocols used: Sore Etccep-KAVZE-AK [facility] [id number] Miscellaneous Notes* Telephone Encounter - Joann Chicas RN - 03/21/2023 8:01 AM EST S: Patient's spoke with [facility] nurse regarding sore throat, swollen tonsils. [...] caller) but not severe Protocols used: Sore Kfrfbp-GAYDJ-MZ documented in this [facility]11-20-2023 Evaluation + Plan note* Assessment & Plan Note - Favian Mariee MD - 03/17/2023 12:03 PM EST Associated Problem(s): Sore throat Minimally enlarged tonsil on the right side no exudates no erythema. No lymphadenopathy. [facility] [id number] Miscellaneous Notes* Assessment & Plan Note - [...] 7 days. Rx sent documented in this [facility]11-20-2023 Evaluation + Plan note* Assessment & Plan Note - Favian Mariee MD - 03/17/2023 12:02 PM EST Associated Problem(s): Acute bacterial conjunctivitis of right eye 2 drops in both eyes 4 times a day for up to 7 days. Rx sent [facility] [id number] History of Present illness Narrative* Jasmin Soni [...] MD 03/17/2023 12:03 PM documented in this encounterSSheltering Arms [id number] Telephone encounter Note* Telephone Encounter - Deloris Louise RN - 03/17/2023 8:06 AM EST S: Patient spoke with [facility] nurse regarding eye pain B: Onset [...] almost) Protocols used: Eye - Pus or Oxphyfjyp-LCHMC-OC [facility] [id number] Miscellaneous Notes* Telephone Encounter - Deloris Louise RN - 03/17/2023 8:06 AM EST S: Patient spoke with [facility] nurse regarding eye pain B: Onset [...] almost) Protocols used: Eye - Pus or Umgstacaj-JOZTA-WK documented in this [facility]05-12-2023 History of Present illness Narrative* Erin Singh APRN - [facility] - 09/06/2022 7:00 AM EDT Images [...] CNP 09/06/2022 7:17 AM documented in this [facility]01-04-2023 Telephone encounter Note* Telephone Encounter - Mary Ellen MckinneyJean Jimenes - 05/01/2022 11:55 AM EST Message released to patient as written. Patient's further questions if applicable: Were all questions from office addressed or relayed to the patient from encounter: Yes Pt returned monitor on 04/27/22 [facility] [id number] Miscellaneous Notes* Telephone Encounter - Mary Ellen [...] and left message. * Telephone Encounter - CHRAISMA Thornton CNP - 05/01/2022 7:23 AM EST Any updates? * Telephone Encounter - Mary Ha - 04/26/2022 10:01 AM EST Left a second detailed message for the [facility] lab with return call information [...] the monitor please? Picked this up from [facility] what she was given has a return address of [place] and she wants to verify how she [...] paged with this incident. Should have notified solderer electronic provider. We are now 5 days out from episode. documented in this encounterSSheltering Arms [id number] Telephone encounter Note* Telephone Encounter - CHARISMA Thornton CNP - 05/01/2022 11:41 AM EST Thank you for all of your help with this. [facility] HospitalXfegsp57-88-4864 Telephone encounter Note* Telephone Encounter - Mary Ha - 05/01/2022 11:28 AM EST Was finally able to reach someone they have prepaid UPS labels, she just has to put it back in the box and drop it off to be sent back. Attempted to contact patient with information and left message. [facility] [id number] Telephone encounter Note* Telephone Encounter - CHARISMA Thornton CNP - 05/01/2022 7:23 AM EST Any updates? [facility] [id number] Telephone encounter Note* Telephone Encounter - Mary Ha - 04/26/2022 10:01 AM EST Left a second detailed message for the [facility] lab with return call information and patient information and question. [facility] HospitalUeeiar54-50-3225 Telephone encounter Note* Telephone Encounter - CHARISMA Thornton CNP - 04/26/2022 9:26 AM EST Have we heard anything back? [place] [id number] Telephone encounter Note* Telephone Encounter - Mary Ha - 04/25/2022 9:21 AM EST Left message for Holter lab to see what she is supposed to do. Will call patient once we have information [facility] HospitalZllall14-90-7124 Telephone encounter Note* Telephone Encounter - CHARISMA [...] the monitor please? Picked this up from [facility] what she was given has a return address of [place] and she wants to verify how she is supposed todo this. Can we call her back with instructions? Thank you. [place] [id number] Telephone encounter Note* Telephone Encounter - CHARISMA [...] bumping her chest (brushing her teeth, etc). [facility] HospitalDoqxzj51-94-8702 Telephone encounter Note* Telephone Encounter - CHARISMA [...] paged with this incident. Should have notified solderer electronic provider. We are now 5 days out from episode. [facility] note* Diagnosis Urinary frequency- Primary Dysuria Leukocytes in urine Other nonspecific finding on examination of urine [facility]* Diagnosis Acute bacterial conjunctivitis of right eye- Primary Sore throat Acute pharyngitis documented in this encounter [facility]* Diagnosis Bilateral acute serous otitis media, recurrence not specified- Primary Pharyngitis, unspecified etiology documented in this encounter [facility]* Diagnosis History of multiple miscarriages- Primary [...] Influenza vaccine refused documented in this encounter [facility]* Diagnosis History of miscarriage- Primary Personal history of other genital system and obstetric disorders documented in this encounter [facility] [facility]* Diagnosis History of miscarriage Personal history of other genital system and obstetric disorders [facility] Diagnosis Encounter for test, result positive- Primary examination or test, positive result [facility]* Diagnosis Early stage of - Primary state, incidental History of miscarriage Personal history of other genital system and obstetric disorders [facility] Diagnosis History of miscarriage Personal history of other genital system and obstetric disorders [facility]* Diagnosis 7 weeks gestation of - Primary state, incidental Encounter for care in first trimester of first Encounter for supervision of high risk in first trimester, antepartum Obesity affecting in first trimester, unspecified obesity type Currently in first trimester with unknown gestational age Anxiety Anxiety state, unspecified History of depression Personal history of other mental disorder [facility] Diagnosis Urinary frequency- Primary Urgency of urination documented [facility]* Diagnosis Confirm cardiac activity using ultrasound- Primary Encounter for routine screening for malformation using ultrasonics 11 weeks gestation of state, incidental [facility] Diagnosis Supervision of high risk in first trimester- Primary Unspecified high-risk 12 weeks gestation of state, incidental Obesity affecting in first trimester, unspecified obesity type [facility]* Diagnosis Supervision of high risk in second trimester- Primary Unspecified high-risk 16 weeks gestation of state, incidental Obesity affecting in second trimester, unspecified obesity type [facility]* Diagnosis Single umbilical artery affecting management of mother, antepartum, single gestation- Primary 20 weeks gestation of state, incidental Supervision of high risk in second trimester Unspecified high-risk Obesity affecting in second trimester, unspecified obesity type [facility]* Diagnosis Encounter for anatomic survey- Primary Single umbilical artery, maternal, antepartum Other umbilical cord complications during labor and delivery, antepartum Obesity affecting in second trimester, unspecified obesity type 20 weeks gestation of state, incidental Single umbilical artery affecting management of mother, antepartum, single gestation [facility]* Diagnosis abnormality affecting management of mother, single or unspecified fetus- Primary [facility]* Diagnosis Supervision of high risk in second trimester ([facility])- Primary Unspecified high-risk Obesity affecting in second trimester, unspecified obesity type (HCC) Single umbilical artery affecting management of mother, antepartum, single gestation (HCC) 25 weeks gestation of ([facility]) state, incidental Screening for diabetes mellitus documented [facility] this [facility]* Diagnosis Encounter for follow-up ultrasound of anatomy ([facility])- Primary Single umbilical artery, maternal, antepartum (HCC) Other umbilical cord complications during labor and delivery, antepartum Abnormal ultrasound Abnormal findings on screening 25 weeks gestation of ([facility]) state, incidental [facility]* Diagnosis Testing of female for genetic disease carrier status- Primary Single umbilical artery, maternal, antepartum (HCC) Other umbilical cord complications during labor and delivery, antepartum Abnormal ultrasound Abnormal findings on screening documented [facility]* Diagnosis Supervision of high risk in second trimester ([facility])- Primary Unspecified high-risk Obesity affecting in second trimester, unspecified obesity type (HCC) Single umbilical artery affecting management of mother, antepartum, single gestation ([facility]) Screening for diabetes mellitus 26 weeks gestation of ([facility]) state, incidental Elevated blood pressure reading without diagnosis of hypertension abnormality affecting management of mother, single or unspecified fetus ([facility]) documented [facility]* Diagnosis Abdominal pain affecting ([facility]) 27 weeks gestation of ([facility]) state, incidental abnormality affecting management of mother, single or unspecified fetus ([facility])- Primary documented [facility]* Diagnosis Penile hypospadias- Primary Hypospadias Abnormal ultrasound Abnormal findings on screening Single umbilical artery, maternal, antepartum ([facility]) Other umbilical cord complications during labor and delivery, antepartum Abdominal pain affecting ([facility]) 27 weeks gestation of ([facility]) state, incidental [facility]* Diagnosis Abdominal pain affecting ([facility]) 27 weeks gestation of ([facility]) state, incidental Obesity during in third trimester ([facility])- Primary Single umbilical artery affecting management of mother, antepartum, single gestation ([facility]) Screening for diabetes mellitus Supervision of high risk in third trimester (HCC) Unspecified high-risk 29 weeks gestation of (HCC) state, incidental documented in this encounter [facility] note* Diagnosis Abdominal pain affecting (HCC) 27 weeks gestation of (HCC) state, incidental Obesity during in third trimester (HCC)- Primary Encounter for ultrasound to check growth (HCC)- Primary Encounter for routine screening for malformation using ultrasonics Obesity during in third trimester (HCC) 29 weeks gestation of (HCC) state, incidental Suspected anomaly, antepartum, single or unspecified fetus (HCC) documented in this encounter [facility] note* Diagnosis Abdominal pain affecting (HCC) 27 weeks gestation of (HCC) state, incidental Encounter for ultrasound to check growth ([facility])- Primary Encounter for routine screening for malformation using ultrasonics Obesity during in third trimester (HCC) 29 weeks gestation of (HCC) state, incidental Suspected anomaly, antepartum, single or unspecified fetus (HCC) documented in this encounter [facility] note* Diagnosis Abdominal pain affecting (HCC) 27 weeks gestation of (HCC) state, incidental Supervision of high risk in third trimester ([facility])- Primary Unspecified high-risk Obesity during in third trimester (HCC) Single umbilical artery affecting management of mother, antepartum, single gestation (HCC) 31 weeks gestation of (HCC) state, incidental documented in this encounter [facility] noteNo assessment information availableWHolmes [facility] Work Phone: Evaluation note* Diagnosis Abdominal pain [...] incidental Encounter for ultrasound to check growth ([facility])- Primary Encounter for routine screening for malformation using ultrasonics Single umbilical artery affecting management of mother, antepartum, single gestation (HCC) 33 weeks gestation of (HCC) state, incidental [facility]* Diagnosis Abdominal pain affecting (HCC) 27 weeks gestation of (HCC) state, incidental Supervision of high risk in third trimester (HCC)- Primary Unspecified high-risk Chronic hypertension complicating or reason for care during childbirth (HCC) Benign essential hypertension complicating , childbirth, and the puerperium, unspecified as to episode of care Obesity during in third trimester ([facility]) Single umbilical artery affecting management of mother, antepartum, single gestation (HCC) 32 weeks gestation of ([facility]) state, incidental Supervision of high risk in third trimester ([facility])- Primary Unspecified high-risk Chronic hypertension complicating or reason for care during childbirth (HCC) Benign essential hypertension complicating , childbirth, and the puerperium, unspecified as to episode of care Obesity during in third trimester ([facility]) Single umbilical artery affecting management of mother, antepartum, single gestation (HCC) 33 weeks gestation of ([facility]) state, incidental [facility]* Diagnosis Abdominal pain affecting (HCC) 27 weeks gestation of ([facility]) state, incidental Supervision of high risk in third trimester ([facility])- Primary Unspecified high-risk Chronic hypertension complicating or reason for care during childbirth (HCC) Benign essential hypertension complicating , childbirth, and the puerperium, unspecified as to episode of care Obesity during in third trimester ([facility]) Single umbilical artery affecting management of mother, antepartum, single gestation (HCC) 32 weeks gestation of ([facility]) state, incidental Supervision of high risk in third trimester ([facility])- Primary Unspecified high-risk Chronic hypertension complicating or reason for care during childbirth (HCC) Benign essential hypertension complicating , childbirth, and the puerperium, unspecified as to episode of care Obesity during in third trimester ([facility]) Single umbilical artery affecting management of mother, antepartum, single gestation (HCC) 34 weeks gestation of ([facility]) state, incidental [facility]* Diagnosis Abdominal pain affecting (HCC) 27 weeks gestation of ([facility]) state, incidental Supervision of high risk in third trimester ([facility])- Primary Unspecified high-risk Chronic hypertension complicating or reason for care during childbirth (HCC) Benign essential hypertension complicating , childbirth, and the puerperium, unspecified as to episode of care Obesity during in third trimester (HCC) Single umbilical artery affecting management of mother, antepartum, single gestation (HCC) 32 weeks gestation of (HCC) state, incidental Supervision of high risk in third trimester ([facility])- Primary Unspecified high-risk Chronic hypertension affecting (HCC) Obesity during in third trimester (HCC) Single umbilical artery affecting management of mother, antepartum, single gestation (HCC) 35 weeks gestation of (HCC) state, incidental [facility] Diagnosis Abdominal pain affecting ([facility]) 27 weeks gestation of ([facility]) state, incidental Supervision of high risk in third trimester ([facility])- Primary Unspecified high-risk Chronic hypertension complicating or reason for care during childbirth (HCC) Benign essential hypertension complicating , childbirth, and the puerperium, unspecified as to episode of care Obesity during in third trimester ([facility]) Single umbilical artery affecting management of mother, antepartum, single gestation (HCC) 32 weeks gestation of (HCC) state, incidental Single umbilical artery affecting management of mother, antepartum, single gestation (HCC) [facility] Diagnosis Abdominal pain affecting (HCC) 27 weeks gestation of ([facility]) state, incidental Supervision of high risk in third trimester ([facility])- Primary Unspecified high-risk Chronic hypertension complicating or reason for care during childbirth (HCC) Benign essential hypertension complicating , childbirth, and the puerperium, unspecified as to episode of care Obesity during in third trimester (HCC) Single umbilical artery affecting management of mother, antepartum, single gestation (HCC) 32 weeks gestation of (HCC) state, incidental Supervision of high risk in third trimester ([facility])- Primary Unspecified high-risk 33 weeks gestation of ([facility]) state, incidental Chronic hypertension complicating or reason for care during childbirth (HCC) Benign essential hypertension complicating , childbirth, and the puerperium, unspecified as to episode of care Obesity during in third trimester ([facility]) Single umbilical artery affecting management of mother, [...] METABOLIC PANEL; Future documented in this encounter [facility] note* Diagnosis Abdominal pain affecting (HCC) [...] single gestation (HCC) [facility] Diagnosis Abdominal pain affecting (HCC) 27 [...] (HCC) state, incidental 36 weeks gestation of ([facility])- Primary state, incidental Supervision of high risk [...] (HCC) state, incidental documented in this encounter [facility] for referral (narrative)* Diagnostic Procedure Only (Routine) - Authorized Specialty Diagnoses / Procedures Referred By Cherrie camacho Referred To Contact [facility] Diagnoses History of miscarriage Procedures PELVIC US WHI US PELVIC NONOBSTETRIC REAL-TIME IMAGE COMPLETE Darryl Adkins MD [address] [place] [address] [address] Referral ID Status Reason Start Date Expiration Date Visits Requested Visits Authorized [id number] Authorized Auto-Generat ed Referral 02/15/2025 1 1 [facility] for referral (narrative)* Diagnostic Procedure Only (Routine) - Authorized Specialty Diagnoses / Procedures Referred By Cherrie camacho Referred To Contact [facility] Diagnoses Encounter for care in first trimester of first Procedures NUCHAL TRANSLUCENCY WHI US NUCHAL TRANSLUCENCY 1ST GESTATION Plotts, Deb, STORE GROUP MANAGER.[facility] [address] [place] [address] [address] Referral ID Status Reason Start Date Expiration Date Visits Requested Visits Authorized [id number] Authorized Auto-Generat ed Referral 03/22/2025 1 1 [facility] for referral (narrative)* Diagnostic Procedure Only (Routine) - Authorized Specialty Diagnoses / Procedures Referred By Contac t Referred To Contact [facility] Diagnoses 12 weeks gestation of Obesity affecting in first trimester, unspecified obesity type Supervision of high risk in first trimester Procedures OBSTETRIC ULTRASOUND WHI US PREG UTERUS AFTER 1ST TRIMEST 1 GESTATION Ankita Carrillo MD [address] [place] [address] [address] Referral ID Status Reason Start Date Expiration Date Visits Requested Visits Authorized [id number] Authorized Auto-Generat ed Referral 04/29/2024 04/29/2025 1 1 [facility] for referral (narrative)No reason for referral information availableWHolmes [facility] Work Phone: Summary Purpose Family History No Family History Records Found Relationship Condition Age at Onset Recorded Date/T lucie mother Diabetes mellitus 35 father Diabetes mellitus 40 grandfather Cardiac disease Unknown grandmother Diabetes mellitus Unknown Advance Directives No Advanced Directives Records FoundDocuments on File Type Date Recorded 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 * Attachments The following attachments cannot be sent through Care Everywhere. * Nausea and Vomiting (Latvian) * Diarrhea (Latvian) documented in this encounter Assessments Diagnosis Nausea [...] section and content) DATE CREATED AUTHOR 03/01/2019 [employer] DATE CREATED AUTHOR AUTHOR'S ORGANIZ ATION 05/25/2024 [facility] DATE CREATED AUTHOR AUTHOR'S ORGANIZ ATION 08/16/2024 [facility] DATE CREATED AUTHOR AUTHOR'S ORGANIZ ATION 10/15/2024 [facility] DATE CREATED AUTHOR AUTHOR'S ORGANIZ ATION 10/19/2024 [facility] Reason for Visit (unrecogniz ed section and content) Reason Comments Emesis Nausea Diarrhea Reason Comments Urinary Frequency Reason Onset Date Comments Eye Pain 03/17/2023 Reason Comments Eye Problem Right-Drainage and s welling Earache Right Sore Throat Started last Friday morning with eye hurting Reason Comments ER Follow-up [facility] ER visit 03/19/23, started amoxicillin Sore Throat Reason Onset Date Comments Sore Throat 03/21/2023 ER Follow-up 03/21/2023 Reason Comments Health Maintenance HIV/HEP C screen- de clines(thinks she's had done) HPV- declines Tdap- declines Covid- not done/does not want Flu- declines Recurrent Miscarriage Patient states isidoro t 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 Cruz in [place], feels like she is getting the run [...] US NUCHAL TRANSLUCENCY 1ST GESTATION Plotts, Deb, STORE GROUP MANAGER.[facility] [address] [place] [address] [address] Referral ID Status Reason Start Date Expiration Date V isits Requested Visits Authorized [id number] Closed Auto-Generate d Referral 03/22/2024 03/22/2025 1 1 Reason Onset Date Comments Care 04/29/2024 Reason Onset Date Comments Care 05/24/2024 Reason Onset Date Comments Care 06/24/2024 Reason Comments US Specialty Diagnoses / Procedures Referred By Contac t Referred To Contact [facility] Diagnoses 12 weeks gestation of Obesity affecting in first trimester, unspecified obesity type Supervision of high risk in first trimester Procedures OBSTETRIC ULTRASOUND WHI US PREG UTERUS AFTER 1ST TRIMEST GESTATION Ankita Carrillo MD [address] [place] [address] Phone: tel: fax: [address] [address] Referral ID Status Reason Start Date Expiration Date V isits Requested Visits Authorized [id number] Closed Auto-Generate d Referral 04/29/2024 04/29/2025 1 1 Reason Onset Date Comments Care 07/27/2024 Specialty Diagnoses / Procedures Referred By Contac t Referred To Contact [facility] Diagnoses Single umbilical artery, maternal, antepartum (HCC) Procedures OBSTETRIC ULTRASOUND WHI US PREG UTERUS AFTER 1ST TRIMEST GESTATION Willa Smith [place] [id number] [place] [address] Phone: tel: fax: [address] [address] Referral ID Status Reason Start Date Expiration Date V isits Requested Visits Authorized [id number] Closed Auto-Generate d Referral 06/24/2024 06/24/2025 1 1 Reason Comments Care Plan Introduction Reason Comments Genetics Specialty Diagnoses / Procedures Referred By Contac t Referred To Contact Diagnoses Single umbilical artery, maternal, antepartum (HCC) Abnormal ultrasound Procedures CONSULT TO MEDICAL GENETICS - MEDICAL GENETICS COUNSELING EACH 30 [place] [address] [place] [address] Phone: tel: fax: Genetic [address] [address] Referral ID Status Reason Start Date Expiration Date V isits Requested Visits Authorized [id number] Closed PCP Requested Referral Auto-Generated Referral 07/27/2024 07/27/2025 1 1 Reason Onset Date Comments Care 08/03/2024 Reason Comments Consult Reason Comments carrier screening results Specialty Diagnoses / Procedures Referred By Contac t Referred To Contact [facility] Diagnoses Abnormal ultrasound Single umbilical artery, maternal, antepartum (HCC) Procedures OBSTETRIC ULTRASOUND WHI US PREG UTERUS AFTER 1ST [place]IME[place] [address] [place] [address] Phone: tel: fax: [address] [address] Referral ID Status Reason Start Date Expiration Date V isits Requested Visits Authorized [id number] Closed Auto-Generate d Referral 07/29/2024 07/29/2025 1 1 Reason Onset Date Comments Care 08/27/2024 Specialty Diagnoses / Procedures Referred By Contac t Referred To Contact [facility] Diagnoses Obesity during in third trimester (HCC) Procedures OBSTETRIC ULTRASOUND WHI US PREG UTERUS AFTER 1ST TRIMEST GESTATION Niru Harrington MD [address] [place] [address] Phone: tel: fax: [facility] [address] [place] [address] Referral ID Status Reason Start Date Expiration Date V isits Requested Visits Authorized [id number] Closed Auto-Generate d Referral 08/27/2024 04/27/2025 1 1 Reason Onset Date Comments Care 09/10/2024 Specialty Diagnoses / Procedures Referred By Contac t Referred To Contact [facility] Diagnoses Single umbilical artery affecting management of mother, antepartum, single gestation (HCC) Procedures OBSTETRIC ULTRASOUND WHI US PREG UTERUS AFTER 1ST TRIMEST GESTATION Niru Harrington MD [address] [place] [address] Phone: tel: fax: [facility] [address] [place] [address] Referral ID Status Reason Start Date Expiration Date V isits Requested Visits Authorized [id number] Closed Auto-Generate d Referral 08/27/2024 08/27/2025 5 1 Reason Onset Date Comments Care 09/21/2024 Reason Onset Date Comments Care 09/30/2024 Reason Onset Date Comments Care 10/04/2024 Reason Comments OB Elevated BP Reason Onset Date Comments Care 09/24/2024 Reason Onset Date Comments Care 10/11/2024 Reason Onset Date Comments Care 10/18/2024 Care Teams (unrecognized sec tion and content) Hatchery Supervisor Relationship Specialty Start Date End [place] [address] PCP - General 11/29/14 Hatchery Supervisor Relationship Specialty Start Date End [place] [address] PCP - General 11/29/14 Hatchery Supervisor Relationship Specialty Start Date End [place] [address] PCP - General 11/29/14 Hatchery Supervisor Relationship Specialty Start Date End [place] [address] PCP - General 11/29/14 Hatchery Supervisor Relationship Specialty Start Date End Date Favian Mariee MD [address] [place] [address] PCP - General 11/29/14 Hatchery Supervisor Relationship Specialty Start Date End Date Favian Mariee MD [address] [facility] [place] [address] PCP - General 11/29/14 Hatchery Supervisor Relationship Specialty Start Date End Date Favian Mariee [address] [facility] [place] [address] PCP - General Family Medicine 03/19/23 Hatchery Supervisor Relationship Specialty Start Date End Date Favian Mariee [address] [facility] [place] [place] [address] PCP - General Family Medicine 03/19/23 Hatchery Supervisor Relationship Specialty Start Date End Date Favian Mariee [address] [facility] [place] [place] [address] PCP - General Family Medicine 03/19/23 Hatchery Supervisor Relationship Specialty Start Date End Date Favian Mariee [address] [facility] [place] [place] [address] PCP - General Family Medicine 03/19/23 Hatchery Supervisor Relationship Specialty Start Date End Date Favian Mariee [address] [facility] [place] [place] [address] PCP - General Family Medicine 03/19/23 Hatchery Supervisor Relationship Specialty Start Date End Date Favian Mariee [address] [place] [address] PCP - General Family Medicine 03/19/23 Hatchery Supervisor Relationship Specialty Start Date End Date Favian Mariee [address] [facility] [place] [place] [address] PCP - General Family Medicine 03/19/23 Hatchery Supervisor Relationship Specialty Start Date End Date Favian Mariee [address] [facility] [place] [place] [address] PCP - General Family Medicine 03/19/23 Hatchery Supervisor Relationship Specialty Start Date End Date Favian Mariee [address] [facility] [place] [place] [address] PCP - General Family Medicine 03/19/23 Hatchery Supervisor Relationship Specialty Start Date End Date Favian Mariee [address] [facility] [place] [place] [address] PCP - General Family Medicine 03/19/23 Hatchery Supervisor Relationship Specialty Start Date End Date Favian [facility]e [facility] [place] [place] [address] PCP - General Family Medicine 03/19/23 Hatchery Supervisor Relationship Specialty Start Date End Date Favian Mariee [address] [facility] [place] [place] [address] PCP - General Family Medicine 03/19/23 Hatchery Supervisor Relationship Specialty Start Date End Date Favian Mariee [address] [facility] [place] [place] [address] PCP - General Family Medicine 03/19/23 Hatchery Supervisor Relationship Specialty Start Date End Date Favian Mariee 25 [facility] [place] [address] PCP - General Family Medicine 03/19/23 Hatchery Supervisor Relationship Specialty Start Date End Date Favian Mariee 25 [facility] [place] [address] PCP - General Family Medicine 03/19/23 Hatchery Supervisor Relationship Specialty Start Date End Date Favian Mariee 25 [facility] [place] [address] PCP - General Family Medicine 03/19/23 Hatchery Supervisor Relationship Specialty Start Date End Date Favian Mariee 25 [facility] [place] [address] PCP - General Family Medicine 03/19/23 Nemo Thompson, tube workerStrike Off Machine Operator Medicine 07/29/24 11/18/24 Hatchery Supervisor Relationship Specialty Start Date End Date Favian Mariee 25 [facility] [place] [address] PCP - General Family Medicine 03/19/23 Nemo Thompson, tube workerStrike Off Machine Operator Medicine 07/29/24 11/18/24 Hatchery Supervisor Relationship Specialty Start Date End Date Favian Mariee 25 [facility] [place] [address] PCP - General Family Medicine 03/19/23 Nemo Thompson, tube workerStrike Off Machine Operator Medicine 07/29/24 11/18/24 Hatchery Supervisor Relationship Specialty Start Date End Date Favian Mariee 25 [facility] [place] [address] PCP - General Family Medicine 03/19/23 Nemo Thompson, tube workerStrike Off Machine Operator Medicine 07/29/24 11/18/24 Hatchery Supervisor Relationship Specialty Start Date End Date Favian Mariee [address] [facility] [place] [place] [address] PCP - General Family Medicine 03/19/23 Nemo Thompson, tube workerStrike Off Machine Operator Medicine 07/29/24 11/18/24 Hatchery Supervisor Relationship Specialty Start Date End Date Favian Mariee 25 [facility] [place] [address] PCP - General Family Medicine 03/19/23 Nemo Thompson, tube workerStrike Off Machine Operator Medicine 07/29/24 11/18/24 Hatchery Supervisor Relationship Specialty Start Date End Date Favian Mariee [address] [facility] [place] [place] [address] PCP - General Family Medicine 03/19/23 Nemo Thompson, tube workerStrike Off Machine Operator Medicine 07/29/24 11/18/24 Hatchery Supervisor Relationship Specialty Start Date End Date Favian Mariee 25 [facility] [place] [address] PCP - General Family Medicine 03/19/23 Nemo Thompson, tube workerStrike Off Machine Operator Medicine 07/29/24 11/18/24 Hatchery Supervisor Relationship Specialty Start Date End Date Favian Mariee [address] [facility] [place] [place] [address] PCP - General Family Medicine 03/19/23 Nemo Thompson, tube workerStrike Off Machine Operator Medicine 07/29/24 11/18/24 Hatchery Supervisor Relationship Specialty Start Date End Date Favian Mariee [facility] [place] [address] PCP - General Family Medicine 03/19/23 Nemo Thompson, tube workerStrike Off Machine Operator Medicine 07/29/24 11/18/24 Hatchery Supervisor Relationship Specialty Start Date End Date Favian Mariee [facility] [place] [place] [address] PCP - General Family Medicine 03/19/23 Nemo Thompson, tube workerStrike Off Machine Operator Medicine 07/29/24 11/18/24 Hatchery Supervisor Relationship Specialty Start Date End Date Favian Mariee [facility] [place] [place] [address] PCP - General Family Medicine 03/19/23 Nemo Thompson, tube workerStrike Off Machine Operator Medicine 07/29/24 11/18/24 Team Status: Active Member Role Status Dates Erin Singh EXAMINATION SUPERVISOR, EXAMINATION SUPERVISOR-C Primary Care Provider Active Team Status: Inactive Member Role Status Dates Erin Singh EXAMINATION SUPERVISOR, EXAMINATION SUPERVISOR-C Primary Care Provider Active Start: September 13, 2024 End: September 13, 2024 Dr. Darryl Adkins DO Attending Provider Active Start: September 13, 2024 End: September 13, 2024 Dr. Darryl Adkins DO Referring Provider Active Start: September 13, 2024 End: September 13, 2024 Hatchery Supervisor Relationship Specialty Start Date End Date Favian Mariee [facility] [place] [address] PCP - General Family Medicine 03/19/23 Nemo Thompson, tube workerStrike Off Machine Operator Medicine 07/29/24 11/18/24 Hatchery Supervisor Relationship Specialty Start Date End Date Favian Mariee 25 [facility] [place] [address] PCP - General Family Medicine 03/19/23 Nemo Thompson, tube workerStrike Off Machine Operator Medicine 07/29/24 11/18/24 Hatchery Supervisor Relationship Specialty Start Date End Date Noel Marieeyamini Martin 25 [facility] [place] [address] PCP - General Family Medicine 03/19/23 Nemo Thompson, tube workerStrike Off Machine Operator Medicine 07/29/24 11/18/24 Hatchery Supervisor Relationship Specialty Start Date End Date JayleneFavian 25 [facility] [place] [address] PCP - General Family Medicine 03/19/23 Nemo Thompson, tube workerStrike Off Machine Operator Medicine 07/29/24 11/18/24 Hatchery Supervisor Relationship Specialty Start Date End Date JayleneFavian [facility] [place] [address] PCP - General Family Medicine 03/19/23 Nemo Thompson, tube workerStrike Off Machine Operator Medicine 07/29/24 11/18/24 Team Status: Inactive Member Role Status Dates Erin Singh NP, EXAMINATION SUPERVISOR-C Primary Care Provider Active Start: October 07, 2024 End: October 07, 2024 Dr. Darryl Adkins , Attending Provider Active Start: October 07, 2024 End: October 07, 2024 Dr. Darryl Adkins , Referring Provider Active Start: October 07, 2024 End: October 07, 2024 Hatchery Supervisor Relationship Specialty Start Date End Date Favian Mariee [address] [facility] [place] [address] PCP - General Family Medicine 03/19/23 Nemo Thompson, tube workerStrike Off Machine Operator Medicine 07/29/24 11/18/24 Hatchery Supervisor Relationship Specialty Start Date End Date Favian Mariee [address] [facility] [place] [address] PCP - General Family Medicine 03/19/23 Nemo Thompson, tube workerStrike Off Machine Operator Medicine 07/29/24 11/18/24 Hatchery Supervisor Relationship Specialty Start Date End Date Favian Mariee 25 [facility] [place] [address] PCP - General Family Medicine 03/19/23 Nemo Thompson RN Strike Off Machine Operator Medicine 07/29/24 11/18/24 Hatchery Supervisor Relationship Specialty Start Date End Date Favian Mariee 25 [facility] [place] [address] PCP - General Family Medicine 03/19/23 Nemo Thompson RN Strike Off Machine Operator Medicine 07/29/24 11/18/24 Hatchery Supervisor Relationship Specialty Start Date End Date Favian Mariee [address] [facility] [place] [address] PCP - General Family Medicine 03/19/23 Nemo Thompson, tube workerStrike Off Machine Operator Medicine 07/29/24 11/18/24 Source Comments (unrecognize d section and content) In the event this informatio n is protected by the Federal Confidentiality of Alcohol and Drug Abuse Patient Records regulations: The Federal rules restrict any use of the information to criminally investigate or prosecute any alcohol or drug abuse patient.[facility] HospitalIn the event this information is protected by the Federal Confidentiality of Alcohol and Drug Abuse Patient Records regulations: The Federal rules restrict any use of the information to criminally investigate or prosecute any alcohol or drug abuse patient.[facility] HospitalIn the event this information is protected by the Federal Confidentiality of Alcohol and Drug Abuse Patient Records regulations: The Federal rules restrict any use of the information to criminally investigate or prosecute any alcohol or drug abuse patient.[facility] HospitalIn the event this information is protected by the Federal Confidentiality of Alcohol and Drug Abuse Patient Records regulations: The Federal rules restrict any use of the information to criminally investigate or prosecute any alcohol or drug abuse patient.[facility] HospitalIn the event this information is protected by the Federal Confidentiality of Alcohol and Drug Abuse Patient Records regulations: The Federal rules restrict any use of the information to criminally investigate or prosecute any alcohol or drug abuse patient.[facility] HospitalIn the event this information is protected by the Federal Confidentiality of Alcohol and Drug Abuse Patient Records regulations: The Federal rules restrict any use of the information to criminally investigate or prosecute any alcohol or drug abuse patient.[facility] HospitalIn the event this information is protected by the Federal Confidentiality of Alcohol and Drug Abuse Patient Records regulations: The Federal rules restrict any use of the information to criminally investigate or prosecute any alcohol or drug abuse patient.[facility] HospitalIn the event this information is protected by the Federal Confidentiality of Alcohol and Drug Abuse Patient Records regulations: The Federal rules restrict any use of the information to criminally investigate or prosecute any alcohol or drug abuse patient.[facility] HospitalIn the event this information is protected by the Federal Confidentiality of Alcohol and Drug Abuse Patient Records regulations: The Federal rules restrict any use of the information to criminally investigate or prosecute any alcohol or drug abuse patient.[facility] HospitalIn the event this information is protected by the Federal Confidentiality of Alcohol and Drug Abuse Patient Records regulations: The Federal rules restrict any use of the information to criminally investigate or prosecute any alcohol or drug abuse patient.[facility] HospitalIn the event this information is protected by the Federal Confidentiality of Alcohol and Drug Abuse Patient Records regulations: The Federal rules restrict any use of the information to criminally investigate or prosecute any alcohol or drug abuse patient.[facility] HospitalIn the event this information is protected by the Federal Confidentiality of Alcohol and Drug Abuse Patient Records regulations: The Federal rules restrict any use of the information to criminally investigate or prosecute any alcohol or drug abuse patient.[facility] HospitalIn the event this information is protected by the Federal Confidentiality of Alcohol and Drug Abuse Patient Records regulations: The Federal rules restrict any use of the information to criminally investigate or prosecute any alcohol or drug abuse patient.[facility] HospitalIn the event this information is protected by the Federal Confidentiality of Alcohol and Drug Abuse Patient Records regulations: The Federal rules restrict any use of the information to criminally investigate or prosecute any alcohol or drug abuse patient.[facility] HospitalIn the event this information is protected by the Federal Confidentiality of Alcohol and Drug Abuse Patient Records regulations: The Federal rules restrict any use of the information to criminally investigate or prosecute any alcohol or drug abuse patient.[facility] HospitalIn the event this information is protected by the Federal Confidentiality of Alcohol and Drug Abuse Patient Records regulations: The Federal rules restrict any use of the information to criminally investigate or prosecute any alcohol or drug abuse patient.[facility] HospitalIn the event this information is protected by the Federal Confidentiality of Alcohol and Drug Abuse Patient Records regulations: The Federal rules restrict any use of the information to criminally investigate or prosecute any alcohol or drug abuse patient.[facility] HospitalIn the event this information is protected by the Federal Confidentiality of Alcohol and Drug Abuse Patient Records regulations: The Federal rules restrict any use of the information to criminally investigate or prosecute any alcohol or drug abuse patient.[facility] HospitalIn the event this information is protected by the Federal Confidentiality of Alcohol and Drug Abuse Patient Records regulations: The Federal rules restrict any use of the information to criminally investigate or prosecute any alcohol or drug abuse patient.[facility] HospitalIn the event this information is protected by the Federal Confidentiality of Alcohol and Drug Abuse Patient Records regulations: The Federal rules restrict any use of the information to criminally investigate or prosecute any alcohol or drug abuse patient.[facility] HospitalIn the event this information is protected by the Federal Confidentiality of Alcohol and Drug Abuse Patient Records regulations: The Federal rules restrict any use of the information to criminally investigate or prosecute any alcohol or drug abuse patient.[facility] HospitalIn the event this information is protected by the Federal Confidentiality of Alcohol and Drug Abuse Patient Records regulations: The Federal rules restrict any use of the information to criminally investigate or prosecute any alcohol or drug abuse patient.[facility] HospitalIn the event this information is protected by the Federal Confidentiality of Alcohol and Drug Abuse Patient Records regulations: The Federal rules restrict any use of the information to criminally investigate or prosecute any alcohol or drug abuse patient.[facility] HospitalIn the event this information is protected by the Federal Confidentiality of Alcohol and Drug Abuse Patient Records regulations: The Federal rules restrict any use of the information to criminally investigate or prosecute any alcohol or drug abuse patient.[facility] HospitalIn the event this information is protected by the Federal Confidentiality of Alcohol and Drug Abuse Patient Records regulations: The Federal rules restrict any use of the information to criminally investigate or prosecute any alcohol or drug abuse patient.[facility] HospitalIn the event this information is protected by the Federal Confidentiality of Alcohol and Drug Abuse Patient Records regulations: The Federal rules restrict any use of the information to criminally investigate or prosecute any alcohol or drug abuse patient.[facility] HospitalIn the event this information is protected by the Federal Confidentiality of Alcohol and Drug Abuse Patient Records regulations: The Federal rules restrict any use of the information to criminally investigate or prosecute any alcohol or drug abuse patient.[facility] HospitalIn the event this information is protected by the Federal Confidentiality of Alcohol and Drug Abuse Patient Records regulations: The Federal rules restrict any use of the information to criminally investigate or prosecute any alcohol or drug abuse patient.[facility] HospitalIn the event this information is protected by the Federal Confidentiality of Alcohol and Drug Abuse Patient Records regulations: The Federal rules restrict any use of the information to criminally investigate or prosecute any alcohol or drug abuse patient.[facility] HospitalIn the event this information is protected by the Federal Confidentiality of Alcohol and Drug Abuse Patient Records regulations: The Federal rules restrict any use of the information to criminally investigate or prosecute any alcohol or drug abuse patient.[facility] HospitalIn the event this information is protected by the Federal Confidentiality of Alcohol and Drug Abuse Patient Records regulations: The Federal rules restrict any use of the information to criminally investigate or prosecute any alcohol or drug abuse patient.[facility] HospitalIn the event this information is protected by the Federal Confidentiality of Alcohol and Drug Abuse Patient Records regulations: The Federal rules restrict any use of the information to criminally investigate or prosecute any alcohol or drug abuse patient.[facility] HospitalIn the event this information is protected by the Federal Confidentiality of Alcohol and Drug Abuse Patient Records regulations: The Federal rules restrict any use of the information to criminally investigate or prosecute any alcohol or drug abuse patient.[facility] HospitalIn the event this information is protected by the Federal Confidentiality of Alcohol and Drug Abuse Patient Records regulations: The Federal rules restrict any use of the information to criminally investigate or prosecute any alcohol or drug abuse patient.[facility] HospitalIn the event this information is protected by the Federal Confidentiality of Alcohol and Drug Abuse Patient Records regulations: The Federal rules restrict any use of the information to criminally investigate or prosecute any alcohol or drug abuse patient.[facility] HospitalIn the event this information is protected by the Federal Confidentiality of Alcohol and Drug Abuse Patient Records regulations: The Federal rules restrict any use of the information to criminally investigate or prosecute any alcohol or drug abuse patient.[facility] HospitalIn the event this information is protected by the Federal Confidentiality of Alcohol and Drug Abuse Patient Records regulations: The Federal rules restrict any use of the information to criminally investigate or prosecute any alcohol or drug abuse patient.[facility] HospitalIn the event this information is protected by the Federal Confidentiality of Alcohol and Drug Abuse Patient Records regulations: The Federal rules restrict any use of the information to criminally investigate or prosecute any alcohol or drug abuse patient.[facility] HospitalIn the event this information is protected by the Federal Confidentiality of Alcohol and Drug Abuse Patient Records regulations: The Federal rules restrict any use of the information to criminally investigate or prosecute any alcohol or drug abuse patient.[facility] HospitalIn the event this information is protected by the Federal Confidentiality of Alcohol and Drug Abuse Patient Records regulations: The Federal rules restrict any use of the information to criminally investigate or prosecute any alcohol or drug abuse patient.[facility] HospitalIn the event this information is protected by the Federal Confidentiality of Alcohol and Drug Abuse Patient Records regulations: The Federal rules restrict any use of the information to criminally investigate or prosecute any alcohol or drug abuse patient.[facility] HospitalIn the event this information is protected by the Federal Confidentiality of Alcohol and Drug Abuse Patient Records regulations: The Federal rules restrict any use of the information to criminally investigate or prosecute any alcohol or drug abuse patient.[facility] HospitalIn the event this information is protected by the Federal Confidentiality of Alcohol and Drug Abuse Patient Records regulations: The Federal rules restrict any use of the information to criminally investigate or prosecute any alcohol or drug abuse patient.[facility] HospitalIn the event this information is protected by the Federal Confidentiality of Alcohol and Drug Abuse Patient Records regulations: The Federal rules restrict any use of the information to criminally investigate or prosecute any alcohol or drug abuse patient.[facility] HospitalIn the event this information is protected by the Federal Confidentiality of Alcohol and Drug Abuse Patient Records regulations: The Federal rules restrict any use of the information to criminally investigate or prosecute any alcohol or drug abuse patient.[facility] HospitalIn the event this information is protected by the Federal Confidentiality of Alcohol and Drug Abuse Patient Records regulations: The Federal rules restrict any use of the information to criminally investigate or prosecute any alcohol or drug abuse patient.[facility] HospitalIn the event this information is protected by the Federal Confidentiality of Alcohol and Drug Abuse Patient Records regulations: The Federal rules restrict any use of the information to criminally investigate or prosecute any alcohol or drug abuse patient.[facility] HospitalIn the event this information is protected by the Federal Confidentiality of Alcohol and Drug Abuse Patient Records regulations: The Federal rules restrict any use of the information to criminally investigate or prosecute any alcohol or drug abuse patient.[facility] Goals (unrecognized section and content) Goals may [...] BE BASED ON THE PRIMARY CLINICAL RECORDS. [facility] [employer] [facility]. provides no warranty or guarantee of the accuracy or completeness of information in this document.
[2024-10-20] MEDS: Penicillin G Pot 5,000,000 UNITS in 0.9% Normal Saline (100mL MB+) 100 ML 150 UNITS IV (03:19)
[2024-10-20] MEDS: Ondansetron 4 MG/2 ML Vial IV ×2 (04:17→08:39)
[2024-10-20] MEDS: Oxytocin 15 Units/NS 250ml 15 UNITS/250 ML IV.SOLN 2 UNITS IV (05:18)
[2024-10-20] MEDS: Labetalol 200 MG Tablet PO ×3 (06:07→21:29)
[2024-10-20] MEDS: Lactated Ringers 1,000 ML 200 ML IV (06:12)
[2024-10-20] MEDS: fentaNYL-bupivacaine (epidural) 100 ML BAG EPIDURAL (07:45)
[2024-10-20] MEDS: Penicillin G 3,000,000 Units 50 ML 100 UNITS IV (08:54)
[2024-10-20] MEDS: NIFEdipine 30 MG Tablet PO (10:17)
[2024-10-20] MEDS: Acetaminophen 500 MG Tablet PO (12:10)
[2024-10-20] MEDS: Amnioinfusion- 0.9% NS 1,000 ML IV.SOLN. 1000 ML INTRA-UTER (12:15)
--- NOTE | 2024-10-20 12:32 | PN.OBGYN_ITS ---
Subjective Subjective decel to 80 x 3 minutes. Has had 2-3 random several variables. 3 cm/ 70/-3 . Amnio infusion going. Stopping pitocin. Discussed with patient Cat 2 tracing and remote from delivery. Agreeble to PCS. FHR currently with normal baseline and no decels. A in process. Plan to follow unless change in status. Objective Data Objective Data Vital Signs: Vital Signs Temp Pulse Resp BP Pulse Ox 99.8 F H 104 H 16 130/67 H 100 10/20/24 11:24 10/20/24 11:26 10/20/24 11:10/20/24 11:10/20/24 11: Weight: 138.346 kg Body Mass Index (BMI) 50.7 Intake & Output: Intake and Output for Last 24 Hours 10/18/24 10/19/24 10/20/24 23:59 23:59 23:59 Intake Total 1108.97 / 1108.97 Output Total 200 / 200 Balance 908.97 / 908.97 Lab / Micro Data 10/19/24 20:00 Labs: Laboratory Results - last 24 hr 10/19/24 20:00: WBC 11.8 H, RBC 4.61, Hgb 12.9, Hct 37.9, MCV 82.2, MCH 28.0, MCHC 34.0, RDW Std Deviation 42.8, RDW Coeff of Diego 14.6, Plt Count 277, MPV 11.8, Immature Gran % (Auto) 0.900, Neut % (Auto) 76.2 H, Lymph % (Auto) 14.8 L, Greene % (Auto) 6.9, Eos % (Auto) 0.8, Baso % (Auto) 0.4, Absolute Neuts (auto) 9.0 H, Absolute Lymphs (auto) 1.74, Nucleated RBC % 0, Syphilis Total Ab Nonreactive, Blood Type AB POSITIVE, Antibody Screen NEGATIVE NST FHR Rate Baby A Baseline: 155 Variability:: Moderate Accelerations:: 15 x 15 Decelerations:: Variable and Prolonged FHR Category:: Category II Assessment & Plan (1) Obesity affecting in third trimester: QUALIFIERS: Obesity type affecting : unspecified obesity Qualified Code(s): O99.213 - Obesity complicating , third trimester COMMENT: @ 37&1 (2) Single umbilical artery: (3) Chronic hypertension: (4) High risk multigravida in third trimester: (5) 37 weeks gestation of : (6) Prolonged heart deceleration:
[2024-10-20] MEDS: Cefazolin 3 GM in 0.9% Normal Saline (100mL Bag) 100 ML IV (12:45)
[2024-10-20] MEDS: Azithromycin 500 MG in 0.9% Normal Saline (250mL Bag) 250 ML 250 MG IV (13:00)
--- NOTE | 2024-10-20 13:37 | OP.PCM_ITS ---
Assessment & Plan (1) Single umbilical artery: (2) Chronic hypertension: (3) 37 weeks gestation of : (4) Prolonged heart deceleration: (5) S/P : Maternal Data Information LUIS Calculator Estimated Delivery Date Method Current WG Current Estimate 11/08/24 Manual 37w 2d Final LUIS: 11/08/24 Gestational age: 37+2 Operative Report (OB) Details Procedure Type: low transverse Date of Procedure: 10/20/24 Procedure Start Time: 12:56 Procedure Stop Time: 13:40 Time of Delivery: 12:58 Pre-Operative Diagnosis: Distress Post-Operative Diagnosis: Same as Pre-operative diagnosis Classification: HAYLEY Type of Anesthesia: Epidural Antibiotic Given: Ancef 3 grams IV x1 and Zithromax 500 mg/5 mL X1 Drain: Ha to straight drain Estimated Blood Loss: 800 cc Findings Description of surgery: heart rate with decel to 30 for 4 minutes. Decision for had already been made due to recurrent prolonged decels and remote from delivery. Position changes did not improve FHR. DEJA was called and patient moved to OR. In the OR the FHR was found to be 150s. Epidural was dosed for . She was prepped with Betadine and draped in the normal sterile fashion. A Pfannenstiel incision was made and carried down to the underlying fascia. The fascia was incised in the midline and extended laterally. The fascia was dissected from the muscle. The muscles divided in the midline. The peritoneum was entered bluntly and extended manually. A bladder blade was placed. A low transverse incision was made and extended bluntly. The cord immediately came through the incision. The head was elevated to the incision. The shoulders delivered easily. There was a cord around the the foot x2 and a true knot. The cord was cut and clamped and the infant passed to the nurse. The placenta was delivered with lashae traction. The uterus was exteriorized and cleared of all clot and debris. The incision was repaired with 1-0 Vicryl x 2. The uterus was returned the abdomen. The gutter cleared of all clots. The peritoneum was closed with 2-0 Monocryl. The fascia was closed with 1-0 Vicryl. The subcutaneous tissue was reapproximated with 2-0 Monocryl The skin was closed with 4-0. I performed the major parts of the procedure with the RFNA assisting with retraction and closing the skin. The sponge lap and needle count was correct x 2 Surgical findings: Cord at the incision site, Cord around the foot x 2, true knot Presentation: Vertex and ROP Amniotic Membrane Rupture Type: Artificial Amniotic Fluid Description: Clear Placental Delivery Description: Spontaneous and Expressed Placenta Disposition: [facility] Specimen collected: No Cord Vessel Description: 2 Vessels Cord Entanglement: True Knot(s) and Other (Bunched in lower uterus and wrapped around foot x 2) Nuchal Cord Compression: With compression Cord Gases: VBG A gender: Male (1 minute): 1 (5 minute): 8 Delayed Cord Clamping: No Generation Technologist per assessment nurse: Yes Igniter Capper: Elizabet Zhou Tasks completed by process assistant: Opening & closing and Retracting Additional accounts payable assistant?: No Complications Complications: No
--- NOTE | 2024-10-20 13:48 | CASEMGMT ---
Labor and Delivery Jewelry Enameler Date: 10/20/24 Time: 1235 Sw responded to DEJA that was called for patient. Sw introduced self to patient's who was her support person. After garbing up, sw waiting with until he was able to unite with patient during emergency . Sw supported patient's and answered any questions that he had during that time. No further needs or concerns at this time. Whit Marks, WINDOWS SERVER SPECIALIST, ORTHODONTIC BAND MAKER
[2024-10-20] MEDS: Oxytocin 15 Units/NS 250ml 15 UNITS/250 ML IV.SOLN 83 UNITS IV (14:00)
[2024-10-20] MEDS: Ketorolac 30 MG/ML Syringe IV ×2 (15:06→21:29)
[2024-10-20] MEDS: HYDROmorphone 1 MG/ML Syringe IV ×2 (15:08→21:29)
[2024-10-20] MEDS: Acetaminophen 500 MG Tablet 1000 MG PO (18:00)
[2024-10-21] MEDS: SimETHICONE 80 MG Chewable Tablet PO (01:40)
[2024-10-21] MEDS: Acetaminophen 500 MG Tablet 1000 MG PO ×4 (01:40→20:04)
[2024-10-21 03:00] VITALS: BP 120/56; PULSE 117; RESP 16; TEMP 36.2; O2SAT 97
[2024-10-21] MEDS: Ketorolac 30 MG/ML Syringe IV ×2 (03:20→09:53)
[2024-10-21] MEDS: HYDROmorphone 1 MG/ML Syringe IV (03:20)
[2024-10-21 05:51] LABS: Hematocrit 33.3 % (37-47); Hemoglobin 10.8 g/dL (12.0-15.0); Mean Corp Hgb Conc 32.4 g/dL (32-36); Mean Corpuscular Hgb 27.8 pg (27.0-32.0); Mean Corpuscular Volume 85.8 fL (81-99); Mean Platelet Vol. 11.4 fl (6.2-12.0); Platelet Count 190 K/mm3 (150-450); RBC Distribution Width CV 15.4 % (11.6-14.6); RBC Distribution Width SD 47.5 fl (35.1-43.9); Red Blood Count 3.88 M/mm3 (4.2-5.4); White Blood Count 16.7 K/mm3 (4.4-11.0)
--- NOTE | 2024-10-21 06:47 | PCM.PN.OB ---
Subjective Subjective Doing well. Ambulating and voiding without difficulty. Mild lochia. Breast feeding. Objective Data Objective Data Vital Signs: Vital Signs Temp Pulse Resp BP Pulse Ox O2 Del Method 97.1 F L 117 H 16 120/56 L 97 Room Air 10/21/24 03:00 10/21/24 03:00 10/21/24 03:00 10/21/24 03:00 10/21/24 03:00 10/21/24 03:00 Oxygen Delivery Method Room Air Weight: 138.346 kg Body Mass Index (BMI) 50.7 Intake & Output: Intake and Output for Last 24 Hours 10/19/24 10/20/24 10/21/24 23:59 23:59 23:59 Intake Total 2480.00 / 2480.00 Output Total 1999 900 / 900 Balance 480.00 / 480.00 -900 / -900 Lab / Micro Data 10/21/24 05:35 Labs: Laboratory Results - last 24 hr 10/21/24 05:35: WBC 16.7 H, RBC 3.88 L, Hgb 10.8 L, Hct 33.3 L, MCV 85.8, MCH 27.8, MCHC 32.4, RDW Std Deviation 47.5 H, RDW Coeff of Diego 15.4 H, Plt Count 190, MPV 11.4 ROS Constitutional Constitutional: Denies headache(s) Cardiovascular Cardiovascular: Denies chest pain or dyspnea Gastrointestinal Gastrointestinal: Denies nausea or vomiting Genitourinary Genitourinary: Denies dysuria Physical Exam Const alert, oriented x3 and no apparent distress General Appearance: cooperative and comfortable Eyes PERRL and EOMs intact bilaterally Resp normal respiratory effort GI soft to palpation and non-tender GI Narrative: soft, moderate distention, fundus firm, appropriately tender. Abdominal bandage clean dry and intact Uterus Palpation: uterus fundus firm ( below umbilicus) Extremity normal to inspection and full ROM Neuro oriented x3 and CN's II-XII intact bilaterally Psych mental status grossly normal Assessment & Plan (1) S/P : (2) Chronic hypertension: COMMENT: Procardia and labetalol PLAN: Stable PLAN: Plan Routine care. Monitor BP.
[2024-10-21 06:51] VITALS: BP 123/57; PULSE 121
[2024-10-21] MEDS: Labetalol 200 MG Tablet PO ×3 (06:53→21:49)
[2024-10-21] MEDS: oxyCODONE 5 MG Tablet PO ×3 (07:58→20:12)
[2024-10-21 08:00] VITALS: BP 116/67; PULSE 115; RESP 18; TEMP 36.8; O2SAT 100
[2024-10-21] MEDS: NIFEdipine 30 MG Tablet PO (09:52)
[2024-10-21] MEDS: Senna/Docusate Sodium 1 Tablet PO (09:53)
[2024-10-21] MEDS: 0.9% Saline Lock 10 ML Syringe IV ×2 (09:53→10:37)
[2024-10-21] MEDS: Enoxaparin 40 MG/0.4 ML Syringe SC ×2 (09:53→21:49)
[2024-10-21] MEDS: dexAMETHasone 20 MG/5 ML Vial 12 MG IV (10:36)
[2024-10-21 12:50] VITALS: BP 131/77; PULSE 111; RESP 18; TEMP 36.5; O2SAT 98
[2024-10-21 16:31] VITALS: BP 117/60; PULSE 112; RESP 18; TEMP 36.6; O2SAT 97
[2024-10-21] MEDS: Ibuprofen 600 MG Tablet PO (17:59)
--- NOTE | 2024-10-21 18:38 | PCM.PN.BLA ---
Progress Note Patient is sitting up in chair. Previously given IV decadron earlier in the day. She states she was able to get up and shower. States the numbness on bottom of foot mostly goes away when she gets up to walk, however when she sits down in chair or puts legs up her right foot begins feeling like a rock again. This is an improvement in symptoms from earlier this morning. Dr. Leonard clark.
[2024-10-21 20:24] VITALS: BP 157/100; PULSE 131; RESP 16; TEMP 36.7; O2SAT 98
[2024-10-22] MEDS: Ibuprofen 600 MG Tablet PO ×4 (00:15→19:01)
[2024-10-22 00:17] VITALS: BP 125/77; PULSE 104; RESP 16
[2024-10-22] MEDS: Acetaminophen 500 MG Tablet 1000 MG PO ×4 (02:33→19:30)
[2024-10-22 02:34] VITALS: BP 127/67; PULSE 108; RESP 16; TEMP 36.7; O2SAT 99
[2024-10-22] MEDS: Labetalol 200 MG Tablet PO ×3 (05:52→22:11)
[2024-10-22] MEDS: oxyCODONE 5 MG Tablet PO ×3 (07:18→19:01)
--- NOTE | 2024-10-22 07:21 | PCM.DC.SUM ---
Providers Date of Admission: 10/19/24 Primary Care Physician: DANYEL Matthew Reason For Visit: LABOR/ PRIMARY C SECTION DELIVERY Diagnosis Discharge Diagnosis (1) S/P : Status: Acute Code(s): Z98.891 - History of uterine scar from previous surgery (2) Chronic hypertension: Status: Chronic Code(s): I10 - Essential (primary) hypertension (3) Post-operative pain: Status: Acute Code(s): G89.18 - Other acute postprocedural pain (4) Care and examination of lactating mother: Status: Acute Code(s): Z39.1 - Encounter for care and examination of lactating mother Plan POD 2 Primary C/S Increase ambulation today support Blood pressures- within normal ranges Continue Procardia 30 mg XR PO daily / Labetalol 200 mg PO BID D/C home tonight if desires with follow up in office Friday for incision check/ BP check Medications at Discharge Home Medications multivitamin no.47-iron fum 27 mg-folate no.1 1 mg-dha 300 mg capsule (PNV-DHA) 1 cap PO DAILY 11/04/23 labetalol 100 mg tablet 200 mg PO TID 10/07/24 nifedipine 30 mg tablet,extended release 24 hr (Procardia XL) 30 mg PO DAILY 10/07/24 oxycodone 5 mg tablet 5 - 10 mg (1 - 2 x 5 mg) PO Q4H PRN PRN Pain Score 4-10 3 days #14 tabs 10/22/24 Hospital Course Operations section Procedures None Summary of Care Provided Minutes Spent on Discharge: 15 Hospital Course: Patient had section. Hospital course was uneventful. Physical Exam Narrative Patient seen at bedside. Sitting and sleeping in chair. Minimal movement yesterday due to pain. Passing flatus. with support but planning to supplement with formula. Denies headache, dizziness, SOB, or CP. Lochia is decreasing. Desires discharge home later tonight. Const alert and no apparent distress General Appearance: cooperative and comfortable Exam Limitations: no limitations HEENT normocephalic Eyes General Eye: normal appearance of both eyes Neck full ROM General: normal visual inspection Chest Chest: symmetrical chest wall rise Resp normal respiratory effort and normal air movement Effort and Inspection: symmetric chest movement Auscultation: clear to auscultation bilaterally Cardio regular rate and regular rhythm GI normal to inspection, nondistended, normoactive bowel sounds Back/Spine normal ROM Extremity full ROM and no calf tenderness General Extremity: normal exam except as noted Skin no rashes or lesions noted Wound Narrative: Dressing is dry and intact. Neuro CN's II-XII intact bilaterally Psych mental status grossly normal Weight / BMI Weight Weight: 305 lb Body Mass Index (BMI) 50.7 ABG / Lab / Microbiology Data 10/21/24 05:35 D/C Instructions Discharge Diet: No restrictions Discharge Activity: May Drive (2 weeks) and May Shower May resume sexual activity in: 6-8 weeks Weight Bearing Status: Weight bearing as tolerated Lifting Restricted to (Lbs): 25 Call your doctor if your incision/area has: Continuous Slow Oozing, Sudden Increased Bleeding, Increased Pain/ Swelling, Increased Redness, Foul Smelling Discharge and Swelling at the incision site Call your doctor if you observe: Fever of 101 or Higher, Numbness or Tingling, Using more than 1 pad per hour, Shortness of breath, Dizziness, Swelling in the ankles, Chest pain, Calf discomfort and Uncontrolled pain Suture Line Care: Avoid Pulling/Pushing Remove Dressing in: 5 days (Remove yourself or call office and schedule appointment for dressing removal.) DC O2, CPAP, BIPAP Needs Home O2 Discharge instructions: No When: 5 days for dressing removal or 2 weeks for post appointment. Meaningful Use Info Meaningful Use Meaningful Use Diagnoses (Choose all that apply): None applicable Ischemic Stroke Statin Dosing Therapy Reference: STATIN DOSE THERAPY REFERENCE: * Patients > 75 years receive moderate or high dose statin therapy. * Patients 75 years or YOUNGER should receive HIGH intensity statin dose unless contraindicated. You will be required to document reason for non-treatment if statin daily dose does not meet guidelines. HIGH DOSE STATIN THERAPY DAILY Atorvastatin > than or = to 40 mg Rosuvastatin > than or = to 20 mg Amlodipine + Atorvastatin > than or = to 2.5/40 mg Ezetimibe + Simvastatin 10/80 mg Simvastatin 80mg Discharge Plan Admission Admit Date/Time: 10/19/24 19:15 Primary Reason for Your Visit: Labor and Delivery Attending Provider: Niru Harrington Primary Care Provider: Emmie Singh NOODLE PRESS OPERATOR Discharge Orders/Prescriptions Prescriptions: New oxycodone 5 mg Tablet 5 - 10 mg PO Q4H PRN PRN (Reason: Pain Score 4-10) 3 Days Qty: 14 0RF Continued PNV-DHA 27 mg iron-1 mg -300 mg capsule 1 cap PO DAILY nifedipine [Procardia XL] 30 mg tablet extended release 24hr 30 mg PO DAILY labetalol 100 mg tablet 200 mg PO TID Discontinued aspirin [Adult Aspirin Regimen] 81 mg tablet,delayed release (DR/EC) 81 mg PO DAILY Referrals / Follow Up: Deb Richard CNM [Med Staff - [facility]] - Emmie Singh NOODLE PRESS OPERATOR, NOODLE PRESS OPERATOR-C [Primary Care Provider] - Disposition Disposition (needs filled in before D/C Order can be placed): Home, Self Care
[2024-10-22 07:55] VITALS: BP 134/87; PULSE 109; RESP 16; TEMP 36.3; O2SAT 97
[2024-10-22] MEDS: Enoxaparin 40 MG/0.4 ML Syringe SC ×2 (10:02→22:10)
[2024-10-22] MEDS: Senna/Docusate Sodium 1 Tablet PO (10:02)
[2024-10-22] MEDS: NIFEdipine 30 MG Tablet PO (10:02)
--- NOTE | 2024-10-22 11:55 | CASEMGMT ---
Social Work Assessment Labor and Delivery Unit Patient Address: [place] [address] Phone number: [phone] Date of Referral: 10/19/24 Time of Referral:? 2113 Referred By: Dr. Greer Date of Intervention: 10/22/24 Time of Intervention:? 1019 Reason for Referral:? anxiety Sw completed chart review and acknowledges social work consult due to maternal mental health. Sw presented to bedside and introduced self to mother of baby (MOB- [place]) and father of baby (FOB- [place]). Sw explained reason for sw involvement and completed psychosocial assessment. History obtained from: medical records, MOB and FOB Household composition: Currently residing in the family home is MOB and FOB. baby to be included in residence when ready for discharge. Parents deny any housing concerns, stating their home is safe and secure. Patient's parent/guardian status: Parents report that they have been together 8-9 years and for 2 after meeting online. [place] baby is first baby for both parents. No concerns reported of domestic violence or intimate partner violence. ? ? Medical History: ?LUCAS is 23 year old female who is 1, para 0- now 1 following labor and delivery of . LUCAS received routine care during with [facility]. LUCAS presented to hospital for induction of labor and required emergency . Baby boy, named Yves Cota, was born on 10/20/24 at 37 weeks gestation. Yves weighed 5lb and 14 ounces and his apgars were 1 and 8 at one and five minutes of life, respectfully. LUCAS states that she is breast feeding and baby will be [facility] by [facility]. Educational Status:? Both parents graduated from high school. No problems with reading, learning or comprehension reported. Financial Status: Both parents are gainfully employed outside of the home. FOSocorro works for his father's electrical company and is able to take 2 weeks off of work. 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 Infant Supplies:??All necessary baby supplies have been obtained, including: car seat, clothes, diapers, wipes and safe sleep space. Childcare/Caregiver(s):? LUCAS reports that she will be the primary caregiver to baby along with FOB. When both parents are working baby will be watched by grandparents. Transportation:?? Both parents have their drivers license and reliable means of transportation. No barriers at this time. Programs/Agencies Involved: ??Parents are over income for community resources that provide financial assistance. ? Children Services/Legal Issues:? No history of children services involvement, no issues or concerns warranting referral to be made at this time. ? Behavioral Health Issues: ??Mental Health History:??SKY denies mental health history. LUCAS states that when she was 13 she was diagnosed with anxiety and depression and has briefly taken medication off and on over the years. MOB states that she has not taken anything over the last several years. LUCAS states that she mostly experienced anxiety over the past several years, however since she has been in a relationship with SKY she reports her anxiety has been more managed. LUCAS reports that she mostly gets worked up over things that are out of her control when she starts to worry about the what if's. ? Substance Use History:?Parents deny substance use history prior to and during . ? Family History: Parents deny family history of substance use and significant mental health history. ? Drug Screens: ?No drug screens observed while completing chart review. ? Family/Social Stressors:? Parents deny any problems or concerns at this time. Support Systems: LUCAS states that SKY and her mom are her biggest supports at this time. Depression/Shaken Baby/Safe Sleeping:? Aron educated parents on signs and symptoms of baby blues and depression and anxiety. LUCAS completed [place] Depression Scale. Her score was a 13, which is indicative of anxiety/ depression. LUCAS reports that she is in pain following her emergent and thinks that that is contributing to her mental health. LUCAS states that she does not feel 100% like herself and is slightly on edge. LUCAS reports to feeling a closeness/ brownlee with baby and is happy that he is here and is healthy. Aron discussed options that LUCAS has, including medication that she can discuss with her OBGYN or counseling with a mental health professional. MOB states that she feels comfortable talking about her feelings with FOB. FOB states that he feels as though he is able to recognize when MOB is struggling, but may not always know how to help her. MOB states that she feels comfortable also talking to her mom when she needs someone to talk to. Sw educated parents on shaken baby prevention and ABCs of safe sleep. Parents express understanding. ASSESSMENT:? MOB and baby admitted following labor and delivery of . MOB with history of anxiety and depression, current score is 13 on the [place] Depression Scale. MOB reports that she is starting to feel slightly anxious, but is doing well caring for herself and baby. MOB states that she will continue to monitor her symptoms and will talk to her supports and her OBGYN. MOB states that she is open to medication during this period if that is recommended by her OBGYN. Parents were welcoming and talkative to sw. MOB was observed sitting comfortably on chair and FOB was sitting comfortably on couch. Parents were talkative and conversation flowed naturally. PLAN:? No other services requested or indicated. MOB and baby to be discharged when medically ready. Parents were provided literature regarding: signs and symptoms of baby blues and mood and anxiety disorders, Help Me Grow, shaken baby prevention, ABCs of safe sleep and a list of county resources that are available for them should any needs present themselves. Whit Marks, MANAGER ROUTE, WATER PLUMBER
[2024-10-22 13:21] VITALS: BP 153/75; PULSE 137; RESP 50; TEMP 39.4; O2SAT 100
--- NOTE | 2024-10-22 14:15 | RAD_ITS ---
PROCEDURE: CHEST 1 VIEW (PORTABLE) 10/22/2024 REASON FOR EXAM: TACHYCARDIA, FEVER TECHNIQUE: Frontal view of the chest. COMPARISON: None FINDINGS: Hardware: None Heart: Cardiac and mediastinal contours are stable. Lungs: The lungs are clear. Bones: The bones are unremarkable. Other: RAD/Chest 1 View (Portable) IMPRESSION: No Acute Findings. Reading Location: [id number]
[2024-10-22 14:31] LABS: Absolute Lymphocyte Count 0.51 X10^3/uL (0.83-4.51); Absolute Neutrophil Count 7.4 X10^3/uL (2.0-7.7); Basophil# 0.02 X10^3/uL; Basophil% 0.2 % (0-1); Eosinophil# 0.04 X10^3/uL; Eosinophils% 0.5 % (0-5); Hematocrit 27.6 % (37-47); Hemoglobin 9.3 g/dL (12.0-15.0); Lymphocyte # 0.51 X10^3/ul (0.83-4.51); Mean Corp Hgb Conc 33.7 g/dL (32-36); Mean Corpuscular Hgb 28.2 pg (27.0-32.0); Mean Corpuscular Volume 83.6 fL (81-99); Monocyte# 0.47 X10^3/uL; Monocyte% 5.5 % (0-10); NRBC Flagged by Analyzer 0 % (0-5); Neutrophil # 7.38 X10^3/uL (2.7-7.7); Neutrophil % 86.3 % (47-70); POSITIVE DIFFERENTIAL YES; Platelet Count 179 K/mm3 (150-450); RBC Distribution Width CV 15.4 % (11.6-14.6); RBC Distribution Width SD 46.9 fl (35.1-43.9); White Blood Count 8.6 K/mm3 (4.4-11.0)
[2024-10-22 14:38] LABS: Mucous, Urine 0 SEEN /hpf (<or=2+)
[2024-10-22] MEDS: 0.9% Saline Lock 10 ML Syringe IV ×2 (14:40→22:12)
[2024-10-22] MEDS: Clindamycin 900 MG in Dextrose 5%-Water (50mL Bag) 50 ML 150 MG IV ×2 (14:40→22:11)
[2024-10-22 15:49] LABS: Color, Urine Amber (Yellow); Glucose, Dipstick Normal (Normal); Ketone-Dipstick Negative (Negative); Leukocyte Esterase-Dipstick 500 /ul (Negative); Nitrite-Dipstick Negative (Negative); Occult Blood-Urine 250 /ul (Negative); Protein-Dipstick 100 mg/dl (Negative); Urine Bilirubin Dipstick Negative (Negative); Urine Clarity Turbid (Clear); Urine Urobilinogen 1 mg/dl (Normal)
[2024-10-22 15:58] LABS: AST(SGOT) 20 U/L (<=31); Alanine Aminotransfer ALT/SGPT 14 U/L (<=34); Albumin, Serum 2.9 g/dL (3.5-5.0); Alkaline Phosphatase 87 U/L (35-104); Anion Gap 12 (5-15); BUN 6 mg/dL (4-19); BUN/Creat Ratio 12.4 RATIO (10-20); CPK Total, Creatine Kinase 246 U/L (24-195); Calcium,Total 8.5 mg/dL (7.6-11.0); Carbon Dioxide 19.6 mmol/L (21.0-32.0); Chloride 104 mmol/L (98-108); Creatinine, Serum 0.52 mg/dL (0.70-1.20); EST Glomerular Filtration Rate 133 (>60); Globulin 2.9 g/dL (2.2-4.2); Glucose 117 mg/dL (70-99); Potassium 3.8 mmol/L (3.3-5.1); Protein, Total 5.8 g/dL (5.9-8.4); Sodium Level 136 mmol/L (133-145); Total Bilirubin 0.28 mg/dL (0.00-1.30)
[2024-10-22 16:26] LABS: International Normalized Ratio 1.1; Prothrombin Time (Protime)PT. 14.1 SECONDS (11.7-14.9)
[2024-10-22 16:27] LABS: Partial Thromboplast Time 35.6 Seconds (24.1-36.2)
[2024-10-22 16:40] VITALS: BP 106/61; PULSE 112; RESP 18; TEMP 36.9; O2SAT 98
--- NOTE | 2024-10-22 17:06 | PCM.RX.CS ---
Consult Antibiotic Management Pharmacy has been consulted to manage selected antibiotic: Gentamicin Type of Intervention Type of Consult: New start Suspected Infection Suspected Infection: Other (Post- Fever) Labs Labs: Sodium 136 mmol/L (133-145) 10/22/24 14:16 Potassium 3.8 mmol/L (3.3-5.1) 10/22/24 14:16 Chloride 104 mmol/L (98-108) 10/22/24 14:16 Carbon Dioxide 19.6 mmol/L (21.0-32.0) L 10/22/24 14:16 Anion Gap 12 (5-15) 10/22/24 14:16 BUN 6 mg/dL (4-19) 10/22/24 14:16 Creatinine 0.52 mg/dL (0.70-1.20) L 10/22/24 14:16 Est GFR (MDRD) Non-Af 133 (>60) 10/22/24 14:16 BUN/Creatinine Ratio 12.4 RATIO (10-20) 10/22/24 14:16 Glucose 117 mg/dL (70-99) H 10/22/24 14:16 Microbiology Microbiology: Microbiology 10/22/24 14:00 Mucosa - Nose SARS-CoV-2, Influenza & RSV (PCR) - Final Pharmacy Plan for Drug Dosing Pharmacy Plan for Drug Dosing: NEW START IV GENTAMICIN Consulting Physician: Dr. Soni Indication: Post- Fever SrCr: 0.52 mg/dL (10/22/24) CrCl: 235 mL/min Comments: extended interval dosing. 450mg (5 mg/kg using adjusted BW) dose given 10/22/24 @ 1632 Gentamicin Dose: Will start 450mg Q24H (10/23 @ 1630) and get a random level in 10 hours per policy. Pending Level: 10/23/24 @ 0230 Pharmacy Service will continue to monitor and adjust dosing as required.
[2024-10-22 17:08] LABS: Red Blood Cells-Urine > 100 SEEN /hpf (0-5); White Blood Cells 50-100 SEEN /hpf (0-5)
[2024-10-22 17:09] LABS: Bacteria 2+ /hpf (None Seen); Squamous Epithelial Cells - UA 0-5 SEEN /hpf (5-10)
--- NOTE | 2024-10-22 17:58 | PCM.PN.BLA ---
Progress Note When nurse went in to evaluate patient patient appeared ill and complained of chills. She was found to have a fever. Patient denies any chest pain. Maybe feels mildly short of breath. She denies significant breast pain or dysuria. She denies any nausea or vomiting. She denies any diarrhea. She has not had a bowel movement yet. She is tolerating regular diet and trying to push fluids. Physical Exam Narrative Breasts are symmetrical, some mild erythema of the nipples no erythema or induration Abdomen soft, moderate distention, appropriate tenderness, fundus is difficult to palpate due to pannus. Bandages clean dry and intact skin surrounding it is without erythema or induration Extremities 2+ edema, no cords or erythema, no clonus, 2+ DTR Const alert, oriented x3 and no apparent distress Assessment & Plan Assessment/Plan (1) Postoperative fever: PLAN: Assumed endometritis. Started on empiric antibiotics for this. Blood cultures and urine cultures were sent. Chest x-ray was ordered and is negative. Patient was given incentive spirometer. Labs were reviewed. Recheck labs in the a.m. Patient is working on breast-feeding. Reviewed findings with patient and her family and they are in agreement with the plan. PLAN: Plan BP has been mildly elevated as well, has a mild headache of about 3 out of 10 currently. States is a normal headache for her. Will monitor. If severe range blood pressures or increase in headache may need to be treated for possible preeclampsia. Will monitor closely.
[2024-10-22 18:25] LABS: Reflex Lactate? Y
[2024-10-22 20:11] VITALS: BP 113/60; PULSE 120; RESP 16; TEMP 37.9; O2SAT 97
[2024-10-22 20:34] LABS: Lactic Acid 1.1 mmol/L (0.0-2.0)
[2024-10-23 02:01] VITALS: BP 140/81; PULSE 132; RESP 16; TEMP 38.5
[2024-10-23] MEDS: Acetaminophen 500 MG Tablet 1000 MG PO ×4 (02:06→20:00)
[2024-10-23] MEDS: Ibuprofen 600 MG Tablet PO ×4 (02:06→19:59)
[2024-10-23 04:33] LABS: Gentamicin, Random 0.3 ug/mL
[2024-10-23] MEDS: Labetalol 200 MG Tablet PO ×3 (05:31→22:19)
[2024-10-23] MEDS: Clindamycin 900 MG in Dextrose 5%-Water (50mL Bag) 50 ML 150 MG IV ×3 (05:31→23:45)
--- NOTE | 2024-10-23 06:24 | PCM.PN.BLA ---
Progress Note Still moderate pain. Mild nausea. Average bleeding. Some flatus, no BM. No dysuria. NO breast redness or c/o. No cough or CP Physical Exam Narrative abd- soft, moderate distention, moderate tenderness lower abdomen, marked tenderness at uterus, firm ext- symmetrical, 2+ edema, neg. quang's bandage-clean, dry and intact, no surrounding erythema Const alert and no apparent distress Assessment & Plan Assessment/Plan (1) S/P : (2) Postoperative fever: PLAN: suspected PP endometritis, on triple abx, blood culture prelim gram neg rods. If spikes fever again will consider CT abdomen/pelvis to eval wound further. (3) Chronic hypertension: PLAN: cont. labetalol and procardia, no changes for now. Cont. to monitor BP. No severe range BP at this time
[2024-10-23] MEDS: Ampicillin 2 GM in 0.9% Normal Saline (100mL MB+) 100 ML IV ×3 (06:26→20:03)
--- NOTE | 2024-10-23 06:28 | PCM.RX.CS ---
Consult Antibiotic Management Pharmacy has been consulted to manage selected antibiotic: Gentamicin Type of Intervention Type of Consult: Follow-up Labs Labs: Sodium 136 mmol/L (133-145) 10/22/24 14:16 Potassium 3.8 mmol/L (3.3-5.1) 10/22/24 14:16 Chloride 104 mmol/L (98-108) 10/22/24 14:16 Carbon Dioxide 19.6 mmol/L (21.0-32.0) L 10/22/24 14:16 Anion Gap 12 (5-15) 10/22/24 14:16 BUN 6 mg/dL (4-19) 10/22/24 14:16 Creatinine 0.52 mg/dL (0.70-1.20) L 10/22/24 14:16 Est GFR (MDRD) Non-Af 133 (>60) 10/22/24 14:16 BUN/Creatinine Ratio 12.4 RATIO (10-20) 10/22/24 14:16 Glucose 117 mg/dL (70-99) H 10/22/24 14:16 Random Gentamicin 0.3 ug/mL 10/23/24 04:00 Microbiology Microbiology: Microbiology 10/22/24 14:16 Blood Culture (Wb) - Other Blood Culture - Preliminary 10/22/24 14:16 Blood Culture (Wb) - Right Wrist Blood Culture - Preliminary 10/22/24 14:00 Mucosa - Nose SARS-CoV-2, Influenza & RSV (PCR) - Final Pharmacy Plan for Drug Dosing Pharmacy Plan for Drug Dosing: Pharmacy Service will continue to monitor and adjust dosing as required. RANDOM LEVEL 0.3 @ 11.5 HOURS. NO CHANGES, FOLLOW UP LEVEL IN 5 DAYS Follow-Up Labs Follow-Up Labs: Trough: Gentamicin Date/Time Labs Ordered Labs to be done on [date and time ordered]: 10/28 @ 2167
[2024-10-23 09:30] VITALS: BP 120/76; PULSE 105; RESP 16; TEMP 36.2; O2SAT 99
[2024-10-23] MEDS: Enoxaparin 40 MG/0.4 ML Syringe SC ×2 (10:40→22:18)
[2024-10-23] MEDS: NIFEdipine 30 MG Tablet PO (10:40)
[2024-10-23] MEDS: 0.9% Saline Lock 10 ML Syringe IV ×3 (13:37→20:42)
[2024-10-23 13:40] VITALS: BP 119/73; PULSE 110; RESP 16; TEMP 36.4; O2SAT 99
[2024-10-23 16:39] VITALS: RESP 16; TEMP 36.2
[2024-10-23 19:57] VITALS: BP 114/87; PULSE 111; RESP 18; TEMP 36.3; O2SAT 99
[2024-10-24] MEDS: Ibuprofen 600 MG Tablet PO ×3 (02:16→13:52)
[2024-10-24] MEDS: Acetaminophen 500 MG Tablet 1000 MG PO ×3 (02:16→13:52)
[2024-10-24] MEDS: Ampicillin 2 GM in 0.9% Normal Saline (100mL MB+) 100 ML IV (03:39)
[2024-10-24 03:44] VITALS: BP 120/81; PULSE 96; RESP 16; TEMP 36.2; O2SAT 99
[2024-10-24] MEDS: Clindamycin 900 MG in Dextrose 5%-Water (50mL Bag) 50 ML 150 MG IV (06:49)
[2024-10-24] MEDS: Labetalol 200 MG Tablet PO ×2 (06:57→13:52)
[2024-10-24 07:51] VITALS: BP 144/86; PULSE 96; RESP 16; TEMP 36.1; O2SAT 99
[2024-10-24] MEDS: 0.9% Saline Lock 10 ML Syringe IV ×2 (07:57→09:42)
[2024-10-24 08:05] LABS: Absolute Lymphocyte Count 1.04 X10^3/uL (0.83-4.51); Absolute Neutrophil Count 5.8 X10^3/uL (2.0-7.7); Basophil# 0.05 X10^3/uL; Basophil% 0.6 % (0-1); Eosinophil# 0.25 X10^3/uL; Eosinophils% 3.1 % (0-5); Hematocrit 29.2 % (37-47); Hemoglobin 9.8 g/dL (12.0-15.0); Lymphocyte # 1.04 X10^3/ul (0.83-4.51); Mean Corp Hgb Conc 33.6 g/dL (32-36); Mean Corpuscular Hgb 28.2 pg (27.0-32.0); Mean Corpuscular Volume 84.1 fL (81-99); Mean Platelet Vol. 10.2 fl (6.2-12.0); Monocyte# 0.64 X10^3/uL; NRBC Flagged by Analyzer 0 % (0-5); Neutrophil # 5.81 X10^3/uL (2.7-7.7); POSITIVE MORPHOLOGY YES; Platelet Count 256 K/mm3 (150-450); RBC Distribution Width CV 15.1 % (11.6-14.6); RBC Distribution Width SD 46.3 fl (35.1-43.9); Red Blood Count 3.47 M/mm3 (4.2-5.4)
[2024-10-24 08:22] LABS: Differential Indicated SCAN CRITERIA MET
[2024-10-24 09:03] LABS: Atypical Lymphocyte 2+ %; Platelet Estimate A (ADEQ); Polychromasia 1+
[2024-10-24] MEDS: NIFEdipine 30 MG Tablet PO (09:38)
[2024-10-24] MEDS: Enoxaparin 40 MG/0.4 ML Syringe SC (09:39)
[2024-10-24 13:25] VITALS: BP 137/85; PULSE 105; RESP 16; TEMP 36.2; O2SAT 99
--- NOTE | 2024-10-24 13:52 | PCM.DC.SUM ---
Providers Date of Admission: 10/19/24 Date of Discharge: 10/24/24 Primary Care Physician: DANYEL Matthew Reason For Visit: LABOR/ PRIMARY C SECTION DELIVERY Diagnosis Discharge Diagnosis (1) S/P : Status: Acute Code(s): Z98.891 - History of uterine scar from previous surgery (2) Postoperative fever: Status: Acute Code(s): R50.82 - Postprocedural fever Plan: suspected PP endometritis, on triple abx, blood culture prelim gram neg rods. If spikes fever again will consider CT abdomen/pelvis to eval wound further. (3) Chronic hypertension: Status: Chronic Code(s): I10 - Essential (primary) hypertension Plan: cont. labetalol and procardia, no changes for now. Cont. to monitor BP. No severe range BP at this time Medications at Discharge Home Medications multivitamin no.47-iron fum 27 mg-folate no.1 1 mg-dha 300 mg capsule (PNV-DHA) 1 cap PO DAILY 11/04/23 labetalol 100 mg tablet 200 mg PO TID 10/07/24 nifedipine 30 mg tablet,extended release 24 hr (Procardia XL) 30 mg PO DAILY 10/07/24 oxycodone 5 mg tablet 5 - 10 mg (1 - 2 x 5 mg) PO Q4H PRN PRN Pain Score 4-10 3 days #14 tabs 10/22/24 clindamycin HCl 300 mg capsule (Cleocin HCl) 300 mg PO TID 10 days #30 caps 10/24/24 ibuprofen 600 mg tablet 600 mg PO Q6H PRN Pain 20 days #60 TABLETS 10/24/24 metronidazole 500 mg tablet 500 mg PO BID 10 days #20 tabs 10/24/24 Hospital Course Operations - (Primary Ltcs ON 10/20/2024) Procedures None Summary of Care Provided Minutes Spent on Discharge: 18 Hospital Course: 23-year-old nulliparrous patient admitted for induction of labor due to 37 weeks, chronic hypertension, obesity in . She underwent Ha placement upon admission and had spontaneous rupture membranes. She then received misoprostol and eventually Pitocin for induction. She then had prolonged decelerations remote from delivery on 10/20/2024 and underwent a primary section. Calculated EBL 1800 cc is consistent with hemorrhage. Patient tolerated the acute blood loss anemia well. On postoperative day #2 she had a fever. She had an elevated white count. Blood cultures and urine culture and chest x-ray were done. There was no evidence of DVT or mastitis. She was started on antibiotics for suspected endometritis. By postoperative day #4 she had been afebrile for 36 hours and preliminary culture results were back. She was changed to oral clindamycin and Flagyl and discharged home with routine postop pain medications. She is to continue labetalol and nifedipine to control her blood pressures. She is to follow-up in the office this week for a wound check. Return or call for any signs or symptoms of preeclampsia. Patient is comfortable with this plan. Physical Exam Narrative Subjective: Patient reports she has had a bowel movement, urinating ambulating and tolerating regular diet without difficulty she denies any headache or visual changes. She denies any chest pain or shortness of breath. She denies any lightheadedness or dizziness. Physical exam: Abdomen is much less tender than previous days. Const alert General Appearance: cooperative GI GI Narrative: soft, moderate distention, fundus firm, appropriately tender. Abdominal bandage clean dry and intact Weight / BMI Weight Weight: 138.346 kg Body Mass Index (BMI) 50.7 ABG / Lab / Microbiology Data 10/24/24 07:55 10/22/24 14:16 Laboratory: Laboratory Results - last 24 hr 10/22/24 14:16: Lactic Acid 2.0 10/24/24 07:55: WBC 8.0, RBC 3.47 L, Hgb 9.8 L, Hct 29.2 L, MCV 84.1, MCH 28.2, MCHC 33.6, RDW Std Deviation 46.3 H, RDW Coeff of Diego 15.1 H, Plt Count 256, MPV 10.2, Immature Gran % (Auto) 2.300 H, Neut % (Auto) 73.0 H, Lymph % (Auto) 13.0 L, [place] % (Auto) 8.0, Eos % (Auto) 3.1, Baso % (Auto) 0.6, Absolute Neuts (auto) 5.8, Absolute Lymphs (auto) 1.04, Nucleated RBC % 0, Atypical Lymphocytes 2+, Platelet Estimate A, Polychromasia 1+ Microbiology: Microbiology 10/22/24 14:25 Urine, Clean Catch Urine Culture - Preliminary ESBL Escherichia coli 10/22/24 14:16 Blood Culture (Wb) - Other Blood Culture - Preliminary GNR lactose career based intervention coordinator 10/22/24 14:16 Blood Culture (Wb) - Right Wrist Blood Culture - Preliminary GNR lactose career based intervention coordinator 10/22/24 14:00 Mucosa - Nose SARS-CoV-2, Influenza & RSV (PCR) - Final D/C Instructions Discharge Diet: No restrictions May resume sexual activity in: 6-8 weeks Weight Bearing Status: Weight bearing as tolerated Lifting Restricted to (Lbs): 25 Call your doctor if your incision/area has: Continuous Slow Oozing, Sudden Increased Bleeding, Increased Pain/ Swelling, Increased Redness, Foul Smelling Discharge and Swelling at the incision site Call your doctor if you observe: Fever of 101 or Higher, Numbness or Tingling, Using more than 1 pad per hour, Shortness of breath, Dizziness, Swelling in the ankles, Chest pain, Calf discomfort and Uncontrolled pain Suture Line Care: Avoid Pulling/Pushing Cleanse incision/area with: Soap & Water DC O2, CPAP, BIPAP Needs Home O2 Discharge instructions: No Please Follow Up With: Niru Harrington MD When: Follow up in our office as scheduled this week or call or send a Delivery Agent message with concerns. [phone] Meaningful Use Info Meaningful Use Meaningful Use Diagnoses (Choose all that apply): None applicable Ischemic Stroke Statin Dosing Therapy Reference: STATIN DOSE THERAPY REFERENCE: * Patients > 75 years receive moderate or high dose statin therapy. * Patients 75 years or YOUNGER should receive HIGH intensity statin dose unless contraindicated. You will be required to document reason for non-treatment if statin daily dose does not meet guidelines. HIGH DOSE STATIN THERAPY DAILY Atorvastatin > than or = to 40 mg Rosuvastatin > than or = to 20 mg Amlodipine + Atorvastatin > than or = to 2.5/40 mg Ezetimibe + Simvastatin 10/80 mg Simvastatin 80mg Discharge Plan Admission Admit Date/Time: 10/19/24 19:15 Primary Reason for Your Visit: Labor and Delivery Attending Provider: Niru Harrington Primary Care Provider: Emmie Singh NP Instructions Patient Instructions: After a Delivery (WP) Discharge Orders/Prescriptions Prescriptions: New oxycodone 5 mg Tablet 5 - 10 mg PO Q4H PRN PRN (Reason: Pain Score 4-10) 3 Days Qty: 14 0RF clindamycin HCl [Cleocin HCl] 300 mg capsule 300 mg PO TID 10 Days Qty: 30 0RF metronidazole 500 mg tablet 500 mg PO BID 10 Days Qty: 20 0RF ibuprofen 600 mg tablet 600 mg PO Q6H PRN (Reason: Pain) 20 Days Qty: 60 1RF Continued PNV-DHA 27 mg iron-1 mg -300 mg capsule 1 cap PO DAILY nifedipine [Procardia XL] 30 mg tablet extended release 24hr 30 mg PO DAILY labetalol 100 mg tablet 200 mg PO TID Discontinued aspirin [Adult Aspirin Regimen] 81 mg tablet,delayed release (DR/EC) 81 mg PO DAILY Referrals / Follow Up: Deb Richard CNM [Med Staff - [facility]] - Emmie Singh NP, [facility] [Primary Care Provider] - Disposition Disposition (needs filled in before D/C Order can be placed): Home, Self Care
== END 2024-10-24 14:50 | disposition home or self-care (01) | DRG 787 ==
PROVIDERS: Obstetrics & Gynecology; Admitting Provider Obstetrics & Gynecology; PCP Registered Nurse; Referring Provider Obstetrics & Gynecology; Visit Provider Obstetrics & Gynecology
DX: O13.5 Gestational [pregnancy-induced] hypertension without significant proteinuria, complicating the puerperium (principal); O98.83 Other maternal infectious and parasitic diseases complicating the puerperium; D62 Acute posthemorrhagic anemia; O86.12 Endometritis following delivery; O72.2 Delayed and secondary postpartum hemorrhage; O99.214 Obesity complicating childbirth; E66.01 Morbid (severe) obesity due to excess calories; O69.89X0 Labor and delivery complicated by other cord complications, not applicable or unspecified; Z37.0 Single live birth; O99.824 Streptococcus B carrier state complicating childbirth; O76 Abnormality in fetal heart rate and rhythm complicating labor and delivery; O69.2XX0 Labor and delivery complicated by other cord entanglement, with compression, not applicable or unspecified; O90.81 Anemia of the puerperium; B96.20 Unspecified Escherichia coli [E. coli] as the cause of diseases classified elsewhere; Z3A.37 37 weeks gestation of pregnancy; Z79.899 Other long term (current) drug therapy
CPT/HCPCS: 36415; 59025; 59050; 71045; 80053; 80170; 81001; 82550; 83605; 85025; 85027; 85610; 85730; 86780; 86850; 86900; 86901; 87040; 87077; 87086; 87088; 87186; 87631; 99221; A4216; G0378; J2405